=== PATIENT | female | born 1965 | race Two or more races ===

== ENCOUNTER 2020-07-24 19:29 | Emergency (ER) | payer MEDICAID, SELFPAY ==
[2020-07-24 20:47] VITALS: BP 122/68; PULSE 70; RESP 16; TEMP 37.1; O2SAT 98; BMI 30.1
[2020-07-24 21:18] VITALS: TEMP 36.7
--- NOTE | 2020-07-24 21:18 | XR_ITS ---
EXAMINATION: XR CHEST CLINICAL INFORMATION: Chest pain COMPARISON: Chest x-ray 04/09/2019 TECHNIQUE: 2 views of the chest were obtained. FINDINGS: Cardiac silhouette is normal in size. The lungs are well aerated. There is no lobar consolidation. No pleural effusion or pneumothorax. No acute osseous abnormality. IMPRESSION: No acute pulmonary pathology.
--- NOTE | 2020-07-24 21:18 | ECG_ITS ---
Test Reason : LEFT BREAST PAIN Blood Pressure : / mmHG Vent. Rate : 075 BPM Atrial Rate : 075 BPM P-R Int : 154 ms QRS Dur : 090 ms QT Int : 390 ms P-R-T Axes : 059 028 040 degrees QTc Int : 435 ms Normal sinus rhythm with sinus arrhythmia Normal ECG When compared with ECG of 09-MAY-2020 13:15, No significant change was found Referred By: Oscar Lombardo Electronically Signed By:MANNY MILNER MD
[2020-07-24 22:57] LABS: MANUAL DIFF FLAG NO
[2020-07-24 22:59] LABS: Basophils Percent Auto 0.5 % (0-2); Eosinophils Absolute Auto 0.1 X10*3/uL (0.0-0.4); Eosinophils Percent Auto 1.8 % (0-4); Hematocrit 41.9 % (37-47); Hemoglobin 13.7 g/dl (12.0-16.0); Imm Gran Abs Auto 0.02 X10*3/uL (0.00-0.03); Imm Gran Pct Auto 0.3 % (0.0-0.4); Lymphocytes Absolute Auto 2.6 X10*3/uL (1.2-4.9); Lymphocytes Percent Auto 34.3 % (20-40); Mean Corpuscular HGB Conc 32.7 g/dl (31.0-35.0); Mean Corpuscular Hemoglobin 29.3 pg (27.0-33.0); Mean Corpuscular Volume 89.5 fL (80-98); Mean Platelet Volume 10.3 fL (9.4-12.3); Monocytes Absolute Auto 0.6 X10*3/uL (0.1-1.2); Neutrophils Absolute Auto 4.2 X10*3/uL (2.0-8.3); Neutrophils Percent Auto 55.1 % (45-73); Platelet Count 202 X10*3/uL (160-400); Red Blood Count 4.68 X10*6/uL (4.20-5.50); Red Cell Distribution Width 12.3 % (11.0-16.0); White Blood Count 7.6 X10*3/uL (4.8-10.8)
[2020-07-24 23:05] LABS: INTERNATIONAL NORM RATIO 1.1 (0.9-1.1); Prothrombin Time 12.5 SEC (10.8-13.0)
[2020-07-24 23:07] LABS: Partial Thromboplastin Time 31.7 SEC (24.1-38.0)
[2020-07-24 23:31] LABS: Alanine Aminotransferase 17 U/L (0-31); Albumin Level 4.7 g/dL (3.5-5.0); Alkaline Phosphatase 74 U/L (39-117); Anion Gap 13 (12-20); Aspartate Amino Transferase 16 U/L (5-31); Bilirubin Total 0.2 mg/dL (0.0-1.0); Blood Urea Nitrogen 11 mg/dL (9-16); Calcium 9.6 mg/dL (8.4-10.2); Carbon Dioxide 25 mmol/L (22-29); Chloride 107 mmol/L (96-108); Creatinine Clr Calc Pharmacy 63.8; Estimated Glomerular Filt Rate 59; Glucose Random 106 mg/dL (60-115); Potassium 3.6 mmol/l (3.3-5.1); Sodium 141 mmol/L (135-145); Total Protein 7.1 g/dL (6.5-8.0)
[2020-07-24 23:35] LABS: Troponin-I High Sensitivity < 3.5 ng/L (<3.5-17.0)
--- NOTE | 2020-07-24 23:41 | ED.GENADULT ---
HPI - General Adult General Chief complaint: General Medical Stated complaint: BREAST PAIN Time Seen by Provider: 07/24/20 21:18 History of Present Illness HPI narrative: patient presents to ED for left-sided breast pain. Patient describes pain sharp stabbing. Patient denies any shortness of breath, coughing, fever, chills. Patient denies any breast swelling, nipple discharge, redness or mass felt on palpation. Patient states symptoms are growing for the past 2 days. patient denies any chest pain on inspiration, swelling of lower extremities, calf pain, recent surgery, recent trauma, recent long travel, or any control use. Patient denies any history of blood clots. Related Data Previous Rx's Medication Instructions Recorded naproxen 500 mg PO BID PRN #20 tab 07/25/20 Allergies Allergy/AdvReac Type Severity Reaction Status Date / Time No Known Allergies Allergy Unverified 06/27/20 16:25 Review of Systems Review of Systems: Breast pain Yes all other systems are reviewed and are negative Constitutional: Constitutional: Reports as per HPI and Reports no additional constitutional complaints Eyes: Eyes: Reports as per HPI and Reports no additional eye complaints ENT: Reports system reviewed and no additional complaints, except as documented, Reports as per HPI and Denies dysphagia Cardiovascular: Cardiovascular: Reports as per HPI, Reports no additional cardiovascular complaints, Denies chest pain, Denies chest pain at rest, Denies chest pain with activity, Denies Epigastric Pain, Denies lightheadedness, Denies dyspnea, Denies dyspnea on exertion, Denies orthopnea and Denies paroxysmal nocturnal dyspnea Respiratory: Respiratory: Reports as per HPI, Reports no additional respiratory complaints, Denies cough, Denies pain on inspiration, Denies pain with cough, Denies dyspnea and Denies dyspnea on exertion Gastrointestinal: Gastrointestinal: Reports as per HPI, Reports no additional gastrointestinal complaints, Denies abdominal pain, Denies belching, Denies melena, Denies bloating, Denies hematochezia, Denies change in stool character, Denies coffee ground emesis, Denies constipation, Denies dysphagia, Denies heartburn and Denies fecal incontinence Musculoskeletal: Musculoskeletal: Reports no additional musculoskeletal complaints and Reports as per HPI Neurologic: Reports system reviewed and no additional complaints, except as documented and Reports as per HPI Psychiatric: Psychiatric: Reports no additional psychiatric complaints and Reports as per HPI [facility] Social History Social History Advance Directives: No Advance Directives Information Provided: No Physical Exam Vital Signs: Vital Signs: Vital Signs Temp Pulse Resp BP Pulse Ox 07/24/20 21:18 98.0 F 07/24/20 20:47 98.7 F 70 16 122/68 98 Body Mass Index 30.1 Const: General: cooperative, healthy appearing, comfortable and no acute distress HENMT: Head: Yes normal to inspection and Yes No palpable skull fracture present Eyes: General: appearance normal, both eyes and all related structures Neck: Neck: Yes normal visual inspection, Yes full ROM, No no lymphadenopathy, No anterior neck swelling, No positive Brudzinski's sign and No positive Kernig's sign Chest: Other: positive for left upper chest wall tenderness. Breast negative for any erythema, swelling, mass on palpation, nipple discharge, abrasions, or lacerations. Negative for any lymphadenopathy on palpation of left axillary area. Patient denies any chest pain on inspiration. Resp: Effort & Inspection: normal respiratory effort, able to speak in complete sentences, no grunting, not labored, no nasal flaring, no paradoxical thoraco-abdom movements, no respiratory distress, no retractions, no segmental paradox chest wall movement, no stridor, not tachypneic and no tracheal deviation Auscultation: clear to auscultation bilaterally Cardio: Jugular venous distension: no JVD Rate: regular rate Rhythm: regular rhythm Heart sounds: S1 normal heart sound present and S2 normal heart sound present GI: Inspection: Yes normal to inspection, No abdominal wall ecchymosis, No Abdominal wall edema, No distended and No incision Palpation (GI): Soft to palpation, not firm, nontender, no guarding and not rigid Percussion: Yes normal to percussion Course Course Course Narrative: Due to patient having left wall chest tenderness, patient will have EKG, labs, chest x-ray, and 1 troponin. History physical exam does not indicate PE. Reevaluation(s) Reevaluation #1: History physical exam indicates costochondritis. EKG is normal. Chest x-ray normal. troponin negative. Patient is safe for discharge. Time: 00:00 Medical Decision Making MDM Narrative Medical decision making narrative: costochondritis Lab Data Result diagrams: 07/24/20 22:52 07/24/20 22:52 Labs: Lab Results 1007/24/20 07/24/20 Range/Units 22:52 22:52 22:52 WBC 7.6 (4.8-10.8) X10*3/uL RBC 4.68 (4.20-5.50) X10*6/uL Hgb 13.7 (12.0-16.0) g/dl Hct 41.9 (37-47) % MCV 89.5 (80-98) fL MCH 29.3 (27.0-33.0) pg MCHC 32.7 (31.0-35.0) g/dl RDW 12.3 (11.0-16.0) % Plt Count 202 (160-400) X10*3/uL MPV 10.3 (9.4-12.3) fL Immature Gran % (Auto) 0.3 (0.0-0.4) % Neut % (Auto) 55.1 (45-73) % Lymph % (Auto) 34.3 (20-40) % [place] % (Auto) 8.0 (2-11) % Eos % (Auto) 1.8 (0-4) % Baso % (Auto) 0.5 (0-2) % Lymph # (Auto) 2.6 (1.2-4.9) X10*3/uL [place] # (Auto) 0.6 (0.1-1.2) X10*3/uL Eos # (Auto) 0.1 (0.0-0.4) X10*3/uL Baso # (Auto) 0.0 (0.0-0.2) X10*3/uL Abs Immat Gran (auto) 0.02 (0.00-0.03) X10*3/uL Absolute Neuts (auto) 4.2 (2.0-8.3) X10*3/uL Absolute Nucleated RBC 0.000 (0.0-0.012) X10*3/uL Nucleated RBC % (auto) 0.0 (0.0-0.2) /100WBC PT 12.5 (10.8-13.0) SEC INR 1.1 (0.9-1.1) APTT 31.7 (24.1-38.0) SEC Sodium 141 (135-145) mmol/L Potassium 3.6 (3.3-5.1) mmol/l Chloride 107 (96-108) mmol/L Carbon Dioxide 25 (22-29) mmol/L Anion Gap 13 (12-20) BUN 11 (9-16) mg/dL Creatinine 0.98 (0.5-1.4) mg/dL Estim Creat Clear Calc 63.8 Estimated GFR 59 Random Glucose 106 (60-115) mg/dL Calcium 9.6 (8.4-10.2) mg/dL Total Bilirubin 0.2 (0.0-1.0) mg/dL AST 16 (5-31) U/L ALT 17 (0-31) U/L Alkaline Phosphatase 74 (39-117) U/L Troponin I High Sens (<3.5-17.0) ng/L Total Protein 7.1 (6.5-8.0) g/dL Albumin 4.7 (3.5-5.0) g/dL 07/24/20 Range/Units 22:52 WBC (4.8-10.8) X10*3/uL RBC (4.20-5.50) X10*6/uL Hgb (12.0-16.0) g/dl Hct (37-47) % MCV (80-98) fL MCH (27.0-33.0) pg MCHC (31.0-35.0) g/dl RDW (11.0-16.0) % Plt Count (160-400) X10*3/uL MPV (9.4-12.3) fL Immature Gran % (Auto) (0.0-0.4) % Neut % (Auto) (45-73) % Lymph % (Auto) (20-40) % [place] % (Auto) (2-11) % Eos % (Auto) (0-4) % Baso % (Auto) (0-2) % Lymph # (Auto) (1.2-4.9) X10*3/uL [place] # (Auto) (0.1-1.2) X10*3/uL Eos # (Auto) (0.0-0.4) X10*3/uL Baso # (Auto) (0.0-0.2) X10*3/uL Abs Immat Gran (auto) (0.00-0.03) X10*3/uL Absolute Neuts (auto) (2.0-8.3) X10*3/uL Absolute Nucleated RBC (0.0-0.012) X10*3/uL Nucleated RBC % (auto) (0.0-0.2) /100WBC PT (10.8-13.0) SEC INR (0.9-1.1) APTT (24.1-38.0) SEC Sodium (135-145) mmol/L Potassium (3.3-5.1) mmol/l Chloride (96-108) mmol/L Carbon Dioxide (22-29) mmol/L Anion Gap (12-20) BUN (9-16) mg/dL Creatinine (0.5-1.4) mg/dL Estim Creat Clear Calc Estimated GFR Random Glucose (60-115) mg/dL Calcium (8.4-10.2) mg/dL Total Bilirubin (0.0-1.0) mg/dL AST (5-31) U/L ALT (0-31) U/L Alkaline Phosphatase (39-117) U/L Troponin I High Sens < 3.5 (<3.5-17.0) ng/L Total Protein (6.5-8.0) g/dL Albumin (3.5-5.0) g/dL ECG Data Interpretation: normal sinus rhythm. Normal EKG. Ventricular rate 75. CO interval 154 Discharge Plan Discharge Clinical Impression: Acute costochondritis, Breast pain, left Patient Disposition: Home, Self-Care Instructions: Costochondritis (ED) Additional Instructions: return to the ED for shortness of breath, chest pain on inspiration, weakness, swelling of lower extremity, calf pain, coughing up blood, breast swelling, redness of breasts, pus discharge, nipple discharge, mass on palpation of breasts, or any other concerning symptoms. Prescriptions: New naproxen 500 mg tablet 500 mg PO BID PRN (Reason: pain) Qty: 20 RF: 0 Referrals: Cee Florez NP [Primary Care Provider] - 2 days ( EKG and chest x-ray came back normal. Troponin is negative. History physical exam indicate costochondritis, but patient states breast pain. Recommend PCP to refer patient for mammogram as needed.) Discharge Date/Time: 07/25/20 00:17 Print Language: Japanese
== END 2020-07-25 00:17 | disposition home or self-care (01) ==
PROVIDERS: Physician Assistant; Emergency Provider Emergency Medicine; PCP Nurse Practitioner Family
DX: M94.0 Chondrocostal junction syndrome [Tietze] (principal); N64.4 Mastodynia
CPT/HCPCS: 36415; 71046; 80053; 84484; 85025; 85610; 85730; 93005; 99283

== ENCOUNTER 2020-08-06 13:01 | Outpatient (REF) | payer MEDICAID, SELFPAY | END 2020-08-06 13:02 | disposition home or self-care (01) | LOC: HO.LAB 13:01 | PROVIDERS: Visit Provider Internal Medicine | DX: Z20.828 Contact with and (suspected) exposure to other viral communicable diseases (principal) | CPT/HCPCS: 87635 ==

== ENCOUNTER 2020-08-29 12:57 | Emergency (ER) | payer MEDICAID, SELFPAY ==
[2020-08-29 14:47] VITALS: BP 137/66; PULSE 90; RESP 18; TEMP 36.5; O2SAT 97; BMI 30.1
[2020-08-29 14:50] VITALS: BP 137/66; PULSE 90; RESP 18; TEMP 36.5; O2SAT 97
--- NOTE | 2020-08-29 15:21 | US_ITS ---
EXAMINATION: ULTRASOUND OF THE PELVIS CLINICAL INFORMATION: Right-sided pelvic pain. COMPARISON: 05/09/2020. TECHNIQUE: Transabdominal and transvaginal pelvic ultrasound. Doppler evaluation with spectral analysis was performed. A transvaginal study was performed in addition to the transabdominal study which did not yield an adequate examination of the uterus and ovaries due to superimposed distended gas-filled loops of bowel. FINDINGS: The uterus is normal in size and appearance, measuring 8.5 x 2.6 x 4.2 cm longitudinally, anteroposteriorly and transversely. The endometrial stripe thickness is normal, measuring 0.2 cm in thickness. No focal myometrial mass is seen. The ovaries bilaterally are visualized and appear normal, with the right ovary measuring 2.3 x 1.7 x 1.5 cm and the left ovary measuring 2.2 x 1.9 x 2 cm. There are normal arterial and venous spectral waveforms bilaterally. No adnexal mass or free fluid collection seen. US/US pelvic complete IMPRESSION: Normal pelvic ultrasound. No evidence of active ovarian torsion at this time.
--- NOTE | 2020-08-29 15:21 | US_ITS ---
EXAMINATION: ULTRASOUND OF THE PELVIS CLINICAL INFORMATION: Right-sided pelvic pain. COMPARISON: 05/09/2020. TECHNIQUE: Transabdominal and transvaginal pelvic ultrasound. Doppler evaluation with spectral analysis was performed. A transvaginal study was performed in addition to the transabdominal study which did not yield an adequate examination of the uterus and ovaries due to superimposed distended gas-filled loops of bowel. FINDINGS: The uterus is normal in size and appearance, measuring 8.5 x 2.6 x 4.2 cm longitudinally, anteroposteriorly and transversely. The endometrial stripe thickness is normal, measuring 0.2 cm in thickness. No focal myometrial mass is seen. The ovaries bilaterally are visualized and appear normal, with the right ovary measuring 2.3 x 1.7 x 1.5 cm and the left ovary measuring 2.2 x 1.9 x 2 cm. There are normal arterial and venous spectral waveforms bilaterally. No adnexal mass or free fluid collection seen. US/US transvaginal IMPRESSION: Normal pelvic ultrasound. No evidence of active ovarian torsion at this time.
--- NOTE | 2020-08-29 15:21 | US_ITS ---
EXAMINATION: ULTRASOUND OF THE PELVIS CLINICAL INFORMATION: Right-sided pelvic pain. COMPARISON: 05/09/2020. TECHNIQUE: Transabdominal and transvaginal pelvic ultrasound. Doppler evaluation with spectral analysis was performed. A transvaginal study was performed in addition to the transabdominal study which did not yield an adequate examination of the uterus and ovaries due to superimposed distended gas-filled loops of bowel. FINDINGS: The uterus is normal in size and appearance, measuring 8.5 x 2.6 x 4.2 cm longitudinally, anteroposteriorly and transversely. The endometrial stripe thickness is normal, measuring 0.2 cm in thickness. No focal myometrial mass is seen. The ovaries bilaterally are visualized and appear normal, with the right ovary measuring 2.3 x 1.7 x 1.5 cm and the left ovary measuring 2.2 x 1.9 x 2 cm. There are normal arterial and venous spectral waveforms bilaterally. No adnexal mass or free fluid collection seen. US/US pelvic ovarian doppler IMPRESSION: Normal pelvic ultrasound. No evidence of active ovarian torsion at this time.
--- NOTE | 2020-08-29 15:23 | ED.ABDPAIN ---
HPI - Abdominal Pain General Chief Complaint: Abdominal Pain Stated Complaint: abdominal and back pain Time Seen by Provider: 08/29/20 14:39 Source: patient Mode of arrival: ambulatory Limitations: language barrier History of Present Illness HPI narrative: 55 y/o post-menopausal female presenting with intermittent, sharp RLQ/right lower abdominal pain that started yesterday. On arrival she states the pain is gone. She took Tylenol with resolution. She states the pain starts in her right lower abdomen and radiates upward to her right flank. She denies nausea, vomiting, diarrhea, fever, chills, vaginal bleeding, vaginal discharge. She has had pain similar to this in the past, was worked up for kidney stones and told there was nothing wrong. MD elicited complaint: abdominal pain Pertinent past history: none Onset (ago): day(s) (1) Pain Consistency: intermittent Location: RLQ and suprapubic Severity: moderate Quality: stabbing and sharp Radiation: R flank Migration to: no migration Exacerbating factors: nothing Relieving factors: medication Associated symptoms: denies other symptoms Related Data Previous Rx's Medication Instructions Recorded naproxen 500 mg PO BID PRN #20 tab 07/25/20 nitrofurantoin monohyd/m-cryst 100 mg PO BID 3 Days #6 cap 08/29/20 [Macrobid] Allergies Allergy/AdvReac Type Severity Reaction Status Date / Time No Known Allergies Allergy Unverified 06/27/20 16:25 Review of Systems Review of Systems Constitutional: No Fever, No Chills ENT/Mouth: No sore throat, No Rhinorrhea, No Swallowing Difficulty Eyes: No Eye Pain, No Swelling, No Redness Cardiovascular: No Chest Pain, No SOB, No Orthopnea, No Edema Respiratory: No Cough, No Sputum, No Wheezing, No dyspnea Gastrointestinal: No Nausea, No Vomiting, No Diarrhea, + abdominal Pain, No Hematochezia, No Melena Genitourinary: No Dysuria, No Urinary Frequency, No Hematuria, No vaginal bleeding, No vaginal discharge Musculoskeletal: No joint pain, No Myalgias Skin: No Skin Lesions, No rash Heme/Lymph: No Bruising, No Lymphadenopathy Endocrine: No Polyuria, No Polydipsia Physical Exam Vital Signs: Vital Signs: Last Vital Signs Temp 97.7 F 08/29/20 14:50 Pulse 90 08/29/20 14:50 Resp 18 08/29/20 14:50 BP 137/66 08/29/20 14:50 Pulse Ox 97 08/29/20 14:50 Body Mass Index 30.1 Appearance: Alert. Oriented X3. No acute distress. Eyes: Pupils equal, round and reactive to light. ENT: Pharynx normal. Neck: Normal inspection. Neck supple. CVS: Normal heart rate and rhythm. Pulses normal. Respiratory: No respiratory distress. Breath sounds normal. Abdomen: Soft and nontender. +BS x4. No CVA tenderness. Skin: Skin warm and dry. Normal skin color. Normal skin turgor. No rashes. Extremities: No lower extremity edema. Neuro: Oriented X 3. No motor deficit. No sensory deficit. Course Course Course Narrative: 55 yo healthy female presenting with intermittent RLQ/right lower abdominal pain, now resolved. No other associated symptoms. Doubt appendicitis given resolution. Possible ovarian torsion given it is intermittent. Will get pelvic U/S for further evaluation. Will check UA, CBC, chem 7 and LFTs as well. Possible renal colic or kidney stones but denies all other symptoms. Reevaluation(s) Reevaluation #1: Pelvic U/S with ovarian doppler was normal. Blood work is normal. No pain at all while in the ER. She has mildly positive UA. Will empirically treat for 3 days given suprapubic tenderness. She is stable for discharge. MDM - Abdominal Pain Lab Data Attestation: I reviewed the patient's lab results. Result diagrams: 08/29/20 15:38 08/29/20 15:38 Labs: Lab Results 08/29/20 08/29/20 08/29/20 Range/Units 15:38 15:38 16:55 WBC 7.1 (4.8-10.8) X10*3/uL RBC 4.65 (4.20-5.50) X10*6/uL Hgb 13.7 (12.0-16.0) g/dl Hct 40.8 (37-47) % MCV 87.7 (80-98) fL MCH 29.5 (27.0-33.0) pg MCHC 33.6 (31.0-35.0) g/dl RDW 12.0 (11.0-16.0) % Plt Count 196 (160-400) X10*3/uL MPV 10.3 (9.4-12.3) fL Immature Gran % (Auto) 0.1 (0.0-0.4) % Neut % (Auto) 69.5 (45-73) % Lymph % (Auto) 22.4 (20-40) % [place] % (Auto) 6.9 (2-11) % Eos % (Auto) 0.7 (0-4) % Baso % (Auto) 0.4 (0-2) % Lymph # (Auto) 1.6 (1.2-4.9) X10*3/uL [place] # (Auto) 0.5 (0.1-1.2) X10*3/uL Eos # (Auto) 0.1 (0.0-0.4) X10*3/uL Baso # (Auto) 0.0 (0.0-0.2) X10*3/uL Abs Immat Gran (auto) 0.01 (0.00-0.03) X10*3/uL Absolute Neuts (auto) 4.9 (2.0-8.3) X10*3/uL Absolute Nucleated RBC 0.000 (0.0-0.012) X10*3/uL Nucleated RBC % (auto) 0.0 (0.0-0.2) /100WBC Sodium 140 (135-145) mmol/L Potassium 4.4 D (3.3-5.1) mmol/l Chloride 102 (96-108) mmol/L Carbon Dioxide 28 (22-29) mmol/L Anion Gap 14 (12-20) BUN 14 (9-16) mg/dL Creatinine 0.87 (0.5-1.4) mg/dL Estim Creat Clear Calc 71.8 Estimated GFR > 60 Random Glucose 99 (60-115) mg/dL Calcium 9.5 (8.4-10.2) mg/dL Total Bilirubin 0.7 (0.0-1.0) mg/dL Direct Bilirubin 0.2 (0.0-0.5) mg/dL AST 15 (5-31) U/L ALT 16 (0-31) U/L Alkaline Phosphatase 73 (39-117) U/L Total Protein 6.8 (6.5-8.0) g/dL Albumin 4.5 (3.5-5.0) g/dL Lipase 24 (8-78) U/L Urine Color YELLOW Urine Appearance CLEAR Urine pH 6.0 (5.0-8.0) Ur Specific [place] 1.025 (1.005-1.025) Urine Protein NEG (NEG-TRACE) MG/DL Urine Glucose (UA) NEG (NEG) MG/DL Urine Ketones 5 (NEG) MG/DL Urine Blood NEG (NEG) Urine Nitrite NEG (NEG) Ur Leukocyte Esterase TRACE H (NEG) Urine RBC 1-4 (0) /HPF Urine WBC 0-2 (0-4) /HPF Ur Squamous Epith Cells 1+ /LPF Urine Bacteria 1+ /LPF Urine Opiates Screen (Not Detect) Ur Barbiturates Screen (Not Detect) Ur Phencyclidine Scrn (Not Detect) Ur Amphetamines Screen (Not Detect) U Benzodiazepines Scrn (Not Detect) Urine Cocaine Screen (Not Detect) U Marijuana (THC) Screen (Not Detect) 08/29/20 Range/Units 16:55 WBC (4.8-10.8) X10*3/uL RBC (4.20-5.50) X10*6/uL Hgb (12.0-16.0) g/dl Hct (37-47) % MCV (80-98) fL MCH (27.0-33.0) pg MCHC (31.0-35.0) g/dl RDW (11.0-16.0) % Plt Count (160-400) X10*3/uL MPV (9.4-12.3) fL Immature Gran % (Auto) (0.0-0.4) % Neut % (Auto) (45-73) % Lymph % (Auto) (20-40) % [place] % (Auto) (2-11) % Eos % (Auto) (0-4) % Baso % (Auto) (0-2) % Lymph # (Auto) (1.2-4.9) X10*3/uL [place] # (Auto) (0.1-1.2) X10*3/uL Eos # (Auto) (0.0-0.4) X10*3/uL Baso # (Auto) (0.0-0.2) X10*3/uL Abs Immat Gran (auto) (0.00-0.03) X10*3/uL Absolute Neuts (auto) (2.0-8.3) X10*3/uL Absolute Nucleated RBC (0.0-0.012) X10*3/uL Nucleated RBC % (auto) (0.0-0.2) /100WBC Sodium (135-145) mmol/L Potassium (3.3-5.1) mmol/l Chloride (96-108) mmol/L Carbon Dioxide (22-29) mmol/L Anion Gap (12-20) BUN (9-16) mg/dL Creatinine (0.5-1.4) mg/dL Estim Creat Clear Calc Estimated GFR Random Glucose (60-115) mg/dL Calcium (8.4-10.2) mg/dL Total Bilirubin (0.0-1.0) mg/dL Direct Bilirubin (0.0-0.5) mg/dL AST (5-31) U/L ALT (0-31) U/L Alkaline Phosphatase (39-117) U/L Total Protein (6.5-8.0) g/dL Albumin (3.5-5.0) g/dL Lipase (8-78) U/L Urine Color Urine Appearance Urine pH (5.0-8.0) Ur Specific [place] (1.005-1.025) Urine Protein (NEG-TRACE) MG/DL Urine Glucose (UA) (NEG) MG/DL Urine Ketones (NEG) MG/DL Urine Blood (NEG) Urine Nitrite (NEG) Ur Leukocyte Esterase (NEG) Urine RBC (0) /HPF Urine WBC (0-4) /HPF Ur Squamous Epith Cells /LPF Urine Bacteria /LPF Urine Opiates Screen Not Detected (Not Detect) Ur Barbiturates Screen Not Detected (Not Detect) Ur Phencyclidine Scrn Not Detected (Not Detect) Ur Amphetamines Screen Not Detected (Not Detect) U Benzodiazepines Scrn Not Detected (Not Detect) Urine Cocaine Screen Not Detected (Not Detect) U Marijuana (THC) Screen Not Detected (Not Detect) Critical Care Time Critical Care Time Critical Care Time: No Discharge Plan Discharge Clinical Impression: UTI (urinary tract infection) Qualifiers: Urinary tract infection type: acute cystitis Hematuria presence: without hematuria Qualified Code(s): N30.00 - Acute cystitis without hematuria Patient Disposition: Home, Self-Care Instructions: Urinary Tract Infection in Women (ED) Additional Instructions: Your pelvic ultrasound today was normal. Your blood work was normal. Your urine test showed a possible early urinary tract infection so you are being prescribed antibiotics while we await the urine culture results. If your pain returns, call your doctor or come back to the ER for further evaluation. Follow up with your doctor early next week. Prescriptions: New nitrofurantoin monohyd/m-cryst [Macrobid] 100 mg capsule 100 mg PO BID 3 Days Qty: 6 RF: 0 No Action naproxen 500 mg tablet 500 mg PO BID PRN (Reason: pain) Qty: 20 RF: 0 Print Language: Serbian [facility] Past Medical History Attestation statement: The following information was validated with the patient. Medical History delivery delivered No known health problems Social History Social History Alcohol intake: never Smoking Status: Never smoker Use of substances other than those prescribed or required for medical reasons: No Advance Directives: No Advance Directives Information Provided: Yes
[2020-08-29] MEDS: 0.9 % Sodium Chloride 1,000 ML 999 ML IVCONT (15:41)
[2020-08-29 15:42] LABS: MANUAL DIFF FLAG NO
[2020-08-29 15:44] LABS: Basophils Percent Auto 0.4 % (0-2); Eosinophils Absolute Auto 0.1 X10*3/uL (0.0-0.4); Eosinophils Percent Auto 0.7 % (0-4); Hematocrit 40.8 % (37-47); Hemoglobin 13.7 g/dl (12.0-16.0); Imm Gran Abs Auto 0.01 X10*3/uL (0.00-0.03); Imm Gran Pct Auto 0.1 % (0.0-0.4); Lymphocytes Absolute Auto 1.6 X10*3/uL (1.2-4.9); Lymphocytes Percent Auto 22.4 % (20-40); Mean Corpuscular HGB Conc 33.6 g/dl (31.0-35.0); Mean Corpuscular Hemoglobin 29.5 pg (27.0-33.0); Mean Corpuscular Volume 87.7 fL (80-98); Mean Platelet Volume 10.3 fL (9.4-12.3); Monocytes Absolute Auto 0.5 X10*3/uL (0.1-1.2); Monocytes Percent Auto 6.9 % (2-11); Neutrophils Absolute Auto 4.9 X10*3/uL (2.0-8.3); Neutrophils Percent Auto 69.5 % (45-73); Platelet Count 196 X10*3/uL (160-400); Red Blood Count 4.65 X10*6/uL (4.20-5.50); White Blood Count 7.1 X10*3/uL (4.8-10.8)
[2020-08-29 16:12] LABS: Alanine Aminotransferase 16 U/L (0-31); Albumin Level 4.5 g/dL (3.5-5.0); Alkaline Phosphatase 73 U/L (39-117); Anion Gap 14 (12-20); Aspartate Amino Transferase 15 U/L (5-31); Bilirubin Direct 0.2 mg/dL (0.0-0.5); Bilirubin Total 0.7 mg/dL (0.0-1.0); Blood Urea Nitrogen 14 mg/dL (9-16); Calcium 9.5 mg/dL (8.4-10.2); Carbon Dioxide 28 mmol/L (22-29); Chloride 102 mmol/L (96-108); Creatinine Clr Calc Pharmacy 71.8; Estimated Glomerular Filt Rate > 60; Glucose Random 99 mg/dL (60-115); Lipase 24 U/L (8-78); Potassium 4.4 mmol/l (3.3-5.1); Sodium 140 mmol/L (135-145); Total Protein 6.8 g/dL (6.5-8.0)
[2020-08-29 17:05] LABS: Glucose Urine UA NEG (NEG); Leukocyte Esterase Urine TRACE (NEG); Nitrite Urine NEG (NEG); Specific Gravity - Urine 1.025 (1.005-1.025); Urine Blood NEG (NEG); Urine Ketones 5 MG/DL (NEG); Urine Protein NEG (NEG-TRACE)
[2020-08-29 17:08] LABS: Appearance Urine CLEAR; Color Urine YELLOW
[2020-08-29 17:20] LABS: Bacteria Urine 1+ /LPF; Squamous Epithelial Cell Urine 1+ /LPF; WBC Urine 0-2 /HPF (0-4)
[2020-08-29 17:28] LABS: Amphetamine Screen Urine Not Detected (Not Detect); Barbiturates, Urine Not Detected (Not Detect); Benzodiazepines Screen Urine Not Detected (Not Detect); Cannabinoid Screen Urine Not Detected (Not Detect); Cocaine Screen Urine Not Detected (Not Detect); Opiate Screen Urine Not Detected (Not Detect); Phencyclidine Screen Urine Not Detected (Not Detect)
[2020-08-29 18:00] VITALS: BP 128/68; PULSE 75; RESP 16; TEMP 36.8; O2SAT 98
== END 2020-08-29 18:02 | disposition home or self-care (01) ==
PROVIDERS: Physician Assistant; Emergency Provider Emergency Medicine; PCP Nurse Practitioner Family
DX: N30.00 Acute cystitis without hematuria (principal); R10.2 Pelvic and perineal pain; R10.31 Right lower quadrant pain; M54.5 Low back pain; Z79.899 Other long term (current) drug therapy
CPT/HCPCS: 36415; 76830; 76856; 80048; 80076; 80307; 81001; 81003; 83690; 85025; 87086; 93975; 96360; 99284

== ENCOUNTER 2020-09-03 13:32 | Emergency (ER) | payer MEDICAID, SELFPAY ==
[2020-09-03 13:43] VITALS: BP 136/65; PULSE 97; RESP 16; TEMP 37.1; O2SAT 98; BMI 28.3
--- NOTE | 2020-09-03 15:08 | ED.EAR ---
HPI - Ear Problem General Chief complaint: Ear Problems Stated complaint: ear pain Time Seen by Provider: 09/03/20 15:08 Source: patient Mode of arrival: ambulatory Limitations: language barrier (eligibility and occupancy interviewer used) History of Present Illness HPI Narrative: Pt states 2 weeks of ear pain and reduced hearing, no ringing or dizziness or fever, no nausea or vomiting, has not seen a doctor for it. She has tried OTC drops with no relief. Denies cough, sore throat or recent Upper resp symptoms. Related Data Previous Rx's Medication Instructions Recorded naproxen 500 mg PO BID PRN #20 tab 07/25/20 nitrofurantoin monohyd/m-cryst 100 mg PO BID 3 Days #6 cap 08/29/20 [Macrobid] amoxicillin-pot clavulanate 1 tab PO BID #20 tab 09/03/20 [Augmentin] Allergies Allergy/AdvReac Type Severity Reaction Status Date / Time No Known Allergies Allergy Verified 09/03/20 13:51 Review of Systems Review of Systems: see HPI [facility] Past Medical History Medical History delivery delivered No known health problems Social History Social History Alcohol intake: never Smoking Status: Never smoker Advance Directives: No Advance Directives Information Provided: No Physical Exam Vital Signs: Vital Signs: Last Vital Signs Temp 98.7 F 09/03/20 13:43 Pulse 97 09/03/20 13:43 Resp 16 09/03/20 13:43 BP 136/65 09/03/20 13:43 Pulse Ox 98 09/03/20 13:43 Body Mass Index 28.3 Const: General: cooperative, healthy appearing and comfortable Nutritional Appearance: average body habitus Orientation/consciousness: patient oriented x3 Limitations: language barrier (interpretor used) HENMT: Head: Yes normal to inspection Ears: hearing grossly normal bilaterally, external ears normal, TM normal on the right, mastoids normal, no periauricular adenopathy, Abnormal EAC present, hearing grossly impaired (slightly decreased) on the left, no periauricular adenopathy, TMs normal and unable to visualize TM on the left General nose exam: Normal external nose present Face and sinus: Yes normal facial exam Eyes: General: appearance normal, both eyes and all related structures Neck: Neck: Yes normal visual inspection, Yes full ROM and Yes supple Resp: Effort & Inspection: normal respiratory effort Neuro: General: patient oriented x3 Discharge Plan Discharge Clinical Impression: Otitis media Patient Disposition: Home, Self-Care Prescriptions: New amoxicillin-pot clavulanate [Augmentin] 875-125 mg tablet 1 tab PO BID Qty: 20 RF: 0 No Action naproxen 500 mg tablet 500 mg PO BID PRN (Reason: pain) Qty: 20 RF: 0 nitrofurantoin monohyd/m-cryst [Macrobid] 100 mg capsule 100 mg PO BID 3 Days Qty: 6 RF: 0 Interventions: ED Discharge Assessment Last Done: 09/03/20 15:49 Discharge Date/Time: 09/03/20 15:50 Print Language: [place]
== END 2020-09-03 15:50 | disposition home or self-care (01) ==
PROVIDERS: Emergency Provider Emergency Medicine Emergency Medical Services; PCP Nurse Practitioner Family
DX: H66.93 Otitis media, unspecified, bilateral (principal); Z79.899 Other long term (current) drug therapy
CPT/HCPCS: 99283

== ENCOUNTER 2020-09-30 13:01 | Emergency (ER) | payer MEDICAID, SELFPAY ==
[2020-09-30 13:04] VITALS: BP 137/76; PULSE 92; RESP 18; TEMP 36.1; O2SAT 98; BMI 28.3
== END 2020-09-30 17:13 | disposition left against medical advice (07) ==
PROVIDERS: Emergency Provider Emergency Medicine; PCP Nurse Practitioner Family
DX: G47.00 Insomnia, unspecified (principal)
CPT/HCPCS: 99282

== ENCOUNTER 2020-10-01 12:17 | Emergency (ER) | payer MEDICAID, SELFPAY ==
--- NOTE | 2020-10-01 14:51 | ED.GENADULT ---
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 The patient tells me she has had difficulty sleeping for the last 11-12 days. She was seen by her primary care doctor and was started on doxylamine, melatonin and trazodone. The patient tells me she has also been compliant with her Haldol which takes daily and p.r.n. clonazepam. She tells me these medications are not helping and she is continuing to have trouble sleeping. She tells me she tosses and turns throughout the night. She does not feel like she gets a full night sleep. She denies any anxiety, depression, auditory visual hallucinations, suicidal or homicidal ideations. Onset (ago): day(s) Associated symptoms: denies other symptoms Related Data Previous Rx's Medication Instructions Recorded naproxen 500 mg PO BID PRN #20 tab 07/25/20 nitrofurantoin monohyd/m-cryst 100 mg PO BID 3 Days #6 cap 08/29/20 [Macrobid] amoxicillin-pot clavulanate 1 tab PO BID #20 tab 09/03/20 [Augmentin] Allergies Allergy/AdvReac Type Severity Reaction Status Date / Time No Known Allergies Allergy Verified 09/30/20 13:04 Review of Systems Review of Systems: Yes all other systems are reviewed and are negative Constitutional: Constitutional: Reports no additional constitutional complaints, Denies body ache(s), Denies chills, Denies fever(s), Denies headache(s) and Denies weakness Eyes: Eyes: Reports no additional eye complaints and Denies change in vision ENT: Reports system reviewed and no additional complaints, except as documented, Denies dizziness, Denies headache(s), Denies nasal congestion, Denies nasal discharge and Denies neck pain Cardiovascular: Cardiovascular: Reports no additional cardiovascular complaints, Denies chest pain, Denies leg edema and Denies dyspnea Respiratory: Respiratory: Reports no additional respiratory complaints, Denies cough and Denies dyspnea Gastrointestinal: Gastrointestinal: Reports no additional gastrointestinal complaints, Denies abdominal pain, Denies diarrhea, Denies nausea and Denies vomiting Genitourinary: Genitourinary: Reports no additional female genitourinary complaints and Denies urinary incontinence Musculoskeletal: Musculoskeletal: Reports no additional musculoskeletal complaints, Denies back pain, Denies arthralgias, Denies joint swelling, Denies neck pain, Denies numbness and Denies tingling Integumentary/Breasts: Skin/Breast: Reports system reviewed and no additional complaints, except as docu and Denies rash Neurologic: Reports system reviewed and no additional complaints, except as documented, Denies Abnormal speech present, Denies dizziness, Denies headache(s), Denies numbness, Denies tingling and Denies weakness Psychiatric: Psychiatric: Denies anxiety, Denies depression, Denies visual hallucinations, Denies hallucinations, Denies homicidal ideation and Denies suicidal ideation Comments: +difficulty sleeping PMFSH Past Medical History Attestation statement: The following information was validated with the patient. Source: old records reviewed and nursing notes reviewed Medical History delivery delivered No known health problems Social History Social History Alcohol intake: never Smoking Status: Never smoker Advance Directives: No Advance Directives Information Provided: Yes Physical Exam Vital Signs: Vital Signs: Last Vital Signs Temp 97.2 F 10/01/20 15:23 Pulse 86 10/01/20 15:23 Resp 16 10/01/20 15:23 BP 115/67 10/01/20 15:23 Pulse Ox 97 10/01/20 15:23 Body Mass Index 27.8 Const: Other: tired appearing, flat affect General: cooperative Orientation/consciousness: patient oriented x3 Limitations: no limitations HENMT: Head: Yes normal to inspection Ears: hearing grossly normal bilaterally General nose exam: Normal external nose present Face and sinus: Yes normal facial exam Mouth: Normal oral and palatal mucosa present Throat: Yes posterior oropharynx normal Eyes: General: appearance normal, both eyes and all related structures Pupils: Equal, round and reactive pupils present Neck: Neck: Yes normal visual inspection Chest: Chest palpation & inspection: normal inspection of the chest Resp: Effort & Inspection: normal respiratory effort Cardio: Rate: regular rate Rhythm: regular rhythm Peripheral pulses: Peripheral pulses 2+ throughout GI: Inspection: Yes normal to inspection Back/Spine/Pelvis: Thoracic/Lumbar Spine: thoracic and lumbar spine normal to inspection Skin: General skin exam: no rashes or lesions noted Neuro: General: patient oriented x3 and normal sensation to monofilament Cranial nerves: Yes Equal, round and reactive pupils present Cognition (Neuro): normal cognition Speech: No Abnormal speech present Gait exam (Neuro): Normal gait present Motor exam (neuro): 5/5 motor strength present throughout Extrem: General: Yes normal to inspection Course Course Course Narrative: 55-year-old female here with difficulty sleeping for the last 11-12 days. She has no other complaints. She is been taking trazodone, doxylamine, melatonin, Haldol and clonazepam with continued symptoms. The patient tells me she has not called her primary care doctor to discuss how she is doing. We did discuss us a good sleeper regimen and nonpharmacological methods to help with sleep. I did strongly encourage her to call her primary care doctor as they may need to adjust her doses of medications. I am hesitant to do this as the patient is followed by both primary care and psychiatrist. The patient has no psych complaints. She has no physical complaints. Reviewed worrisome signs and symptoms and when to return to the emergency department. Comfortable discharge home. Discharge Plan Discharge Clinical Impression: Insomnia Qualifiers: Insomnia type: unspecified Qualified Code(s): G47.00 - Insomnia, unspecified Patient Disposition: Home, Self-Care Instructions: Insomnia (ED) Additional Instructions: Continue your medications See attached information for sleep aid CALL YOUR PCP today so that they may adjust your medications as needed Try some meditations, cool/dark room, limit screen time, no caffeine/sugar within several hours of sleeping Prescriptions: No Action naproxen 500 mg tablet 500 mg PO BID PRN (Reason: pain) Qty: 20 RF: 0 nitrofurantoin monohyd/m-cryst [Macrobid] 100 mg capsule 100 mg PO BID 3 Days Qty: 6 RF: 0 amoxicillin-pot clavulanate [Augmentin] 875-125 mg tablet 1 tab PO BID Qty: 20 RF: 0 Referrals: Cee Florez NP [Primary Care Provider] - 2 days Interventions: ED Discharge Assessment Last Done: 10/01/20 15:35 Discharge Date/Time: 10/01/20 15:36 Print Language: Telugu
[2020-10-01 15:23] VITALS: BP 115/67; PULSE 86; RESP 16; TEMP 36.2; O2SAT 97; BMI 27.8
== END 2020-10-01 15:36 | disposition home or self-care (01) ==
PROVIDERS: Emergency Provider Emergency Medicine; PCP Nurse Practitioner Family
DX: G47.00 Insomnia, unspecified (principal); E78.5 Hyperlipidemia, unspecified; Z79.899 Other long term (current) drug therapy
CPT/HCPCS: 99283

== ENCOUNTER 2020-12-17 10:09 | Emergency (ER) | payer MEDICAID, SELFPAY ==
[2020-12-17 10:18] VITALS: BP 112/79; BP 136/100; PULSE 117; PULSE 121; RESP 16; TEMP 36.8; O2SAT 97; BMI 27.9
[2020-12-17 11:15] LABS: Glucose Urine UA NEG (NEG); Leukocyte Esterase Urine NEG (NEG); Nitrite Urine NEG (NEG); PH 8.5 (5.0-8.0); Specific Gravity - Urine 1.015 (1.005-1.025); Urine Blood TRACE (NEG); Urine Ketones NEG (NEG); Urine Protein NEG (NEG-TRACE)
[2020-12-17 11:17] LABS: Basophils Percent Auto 0.3 % (0-2); Eosinophils Percent Auto 0.1 % (0-4); Hematocrit 43.1 % (37-47); Hemoglobin 14.4 g/dl (12.0-16.0); Imm Gran Abs Auto 0.01 X10*3/uL (0.00-0.03); Imm Gran Pct Auto 0.1 % (0.0-0.4); Lymphocytes Absolute Auto 1.7 X10*3/uL (1.2-4.9); Lymphocytes Percent Auto 21.8 % (20-40); Mean Corpuscular HGB Conc 33.4 g/dl (31.0-35.0); Mean Corpuscular Hemoglobin 29.6 pg (27.0-33.0); Mean Corpuscular Volume 88.7 fL (80-98); Mean Platelet Volume 10.5 fL (9.4-12.3); Monocytes Absolute Auto 0.6 X10*3/uL (0.1-1.2); Monocytes Percent Auto 7.8 % (2-11); Neutrophils Absolute Auto 5.4 X10*3/uL (2.0-8.3); Neutrophils Percent Auto 69.9 % (45-73); Platelet Count 227 X10*3/uL (160-400); Red Blood Count 4.86 X10*6/uL (4.20-5.50); White Blood Count 7.7 X10*3/uL (4.8-10.8)
[2020-12-17 11:18] LABS: Appearance Urine TURBID; Color Urine YELLOW
[2020-12-17 11:18] LABS: MANUAL DIFF FLAG NO
[2020-12-17 11:39] LABS: Amorphous Sediment Urine 3+ /LPF; RBC Urine 0-2 /HPF (0); Squamous Epithelial Cell Urine 2+ /LPF; WBC Urine 0 /HPF (0-4)
[2020-12-17 11:54] LABS: Alanine Aminotransferase 18 U/L (0-31); Albumin Level 4.6 g/dL (3.5-5.0); Alkaline Phosphatase 82 U/L (39-117); Anion Gap 13 (12-20); Aspartate Amino Transferase 15 U/L (5-31); Bilirubin Total 0.5 mg/dL (0.0-1.0); Blood Urea Nitrogen 9 mg/dL (9-16); Calcium 9.7 mg/dL (8.4-10.2); Carbon Dioxide 25 mmol/L (22-29); Chloride 108 mmol/L (96-108); Creatinine Clr Calc Pharmacy 65.5; Estimated Glomerular Filt Rate > 60; Glucose Random 117 mg/dL (60-115); Potassium 4.2 mmol/L (3.3-5.1); Sodium 142 mmol/L (135-145)
[2020-12-17 12:05] VITALS: BP 111/70; PULSE 106; RESP 18; TEMP 37.1; O2SAT 97
--- NOTE | 2020-12-17 12:06 | PC.NURSE ---
NO TREMOR NOTED AT THIS TIME. PT STATES SHE'S FEELING BETTER W/O INTERVENTION. FLAT AFFECT. HAS NOT BEEN UP TO URINATE SINCE THIS RN ARRIVAL AT 1045. SKIN PWD. NO GRIMACE. WILL NOT REMOVE SUNGLASSES.
[2020-12-17] MEDS: LORazepam 1 MG TABLET PO (12:07)
[2020-12-17 14:00] VITALS: BP 115/70; PULSE 98; RESP 18; TEMP 37.1; O2SAT 97
--- NOTE | 2020-12-17 14:18 | ED_ITS ---
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 The patient states that she has been having lower abdominal pain for 2 days, she points to her suprapubic area when asked to localize the pain. She states pain is intermittent and is a sharp pain. The pain is 6/10 at its worst. She states that she has had difficulty urinating as had decreased urine output. She has noted urinary frequency but no dysuria. She has been taking Tylenol with no relief for pain. She denied fever, chills, nausea, vomiting, change in her bowel movements. Related Data Previous Rx's Medication Instructions Recorded naproxen 500 mg PO BID PRN #20 tab 07/25/20 nitrofurantoin monohyd/m-cryst 100 mg PO BID 3 Days #6 cap 08/29/20 [Macrobid] amoxicillin-pot clavulanate 1 tab PO BID #20 tab 09/03/20 [Augmentin] Allergies Allergy/AdvReac Type Severity Reaction Status Date / Time No Known Allergies Allergy Verified 09/30/20 13:04 Review of Systems Review of Systems: Yes all other systems are reviewed and are negative [facility] Past Medical History [facility] Narrative: Past medical history [facility] for hyper[facility], past surgical history significant for . The patient denies tobacco, alcohol and drug use. Medical History delivery delivered No known health problems Occasional tremors Social History Social History Alcohol intake: never Smoking Status: Never smoker Smoked in Last 30 Days: No Use of substances other than those prescribed or required for medical reasons: No Advance Directives: Yes Advance Directives Information Provided: Yes Advance Directives on File: No Physical Exam Vital Signs: Vital Signs: Last Vital Signs Temp 98.7 F 12/17/20 12:05 Pulse 106 H 12/17/20 12:05 Resp 18 12/17/20 12:05 BP 111/70 03/09/21 12:05 Pulse Ox 97 12/17/20 12:05 Body Mass Index 27.9 Const: General: cooperative Orientation/consciousness: oriented to person and oriented to place Limitations: no limitations HENMT: Head: Yes normal to inspection, Yes normocephalic and Yes atraumatic Ears: external ears normal General nose exam: Normal external nose present Face and sinus: Yes normal facial exam Mouth: Normal oral and palatal mucosa present Throat: Yes posterior oropharynx normal Eyes: Periorbital: periorbital findings normal Eyelids: Yes eyelids normal Conjunctivae: conjunctivae normal Sclerae: sclerae normal Corneas: corneas normal Pupils: Equal, round and reactive pupils present Direct Ophthalmoscopy: normal light reflex Neck: Neck: Yes full ROM, Yes no lymphadenopathy, Yes no meningeal signs, Yes trachea midline and Yes supple Chest: Chest palpation & inspection: normal inspection of the chest and normal palpation of entire chest wall Resp: Effort & Inspection: normal respiratory effort and able to speak in complete sentences Auscultation: clear to auscultation bilaterally Cardio: Rate: regular rate Rhythm: regular rhythm Heart sounds: S1 normal heart sound present, S2 normal heart sound present and no murmurs GI: Inspection: Yes normal to inspection Palpation (GI): Soft to palpation, Tenderness to palpation present (GI) suprapubicly (Mild), no guarding, not rigid and No hepatosplenomegaly present : General: Yes no CVA tenderness Back/Spine/Pelvis: Back: no CVA tenderness Cervical Spine: normal cervical lordosis Thoracic/Lumbar Spine: thoracic and lumbar spine normal to inspection Skin: Lesions: no lesions Rashes: no rashes Wounds: no wounds Neuro: General: oriented to person, oriented to place and no meningeal signs Cranial nerves: Yes CN's II-XII intact bilaterally and Yes Equal, round and reactive pupils present Cognition (Neuro): normal cognition Motor exam (neuro): 5/5 motor strength present throughout Extrem: General: Yes normal to inspection and Yes full ROM Psych: Appearance: well kempt Mental Status: mental status grossly normal Speech and movement: Normal speech and movement present Affect: Indifferent affect present (Flat affect) Attitude: cooperative Thought process: Normal thought process present Thought content: Normal thought content present Course Course Course Narrative: 55-year-old female who presented emergency department for evaluation of lower abdominal pain times 2-3 days with urinary frequency. Physical examination did reveal suprapubic tenderness otherwise was unremarkable. Laboratory evaluation was normal, urinalysis revealed trace leukocyte esterase with 0-1 rbc's and 0-2 WBCs on microscopic. Bladder scan revealed no urinary retention. At this time I do not have a clear etiology for the patient's pain. The patient was advised to take Tylenol and ibuprofen. She was given ibuprofen here in the emergency department. She was given verbal and printed instructions and discharged home. MDM - Female Genitourinary Lab Data Result diagrams: 12/17/20 11:12 12/17/20 11:12 Labs: Lab Results 12/17/20 12/17/20 12/17/20 Range/Units 10:47 11:12 11:12 WBC 7.7 (4.8-10.8) X10*3/uL RBC 4.86 (4.20-5.50) X10*6/uL Hgb 14.4 (12.0-16.0) g/dl Hct 43.1 (37-47) % MCV 88.7 (80-98) fL MCH 29.6 (27.0-33.0) pg MCHC 33.4 (31.0-35.0) g/dl RDW 12.0 (11.0-16.0) % Plt Count 227 (160-400) X10*3/uL MPV 10.5 (9.4-12.3) fL Immature Gran % (Auto) 0.1 (0.0-0.4) % Neut % (Auto) 69.9 (45-73) % Lymph % (Auto) 21.8 (20-40) % [place] % (Auto) 7.8 (2-11) % Eos % (Auto) 0.1 (0-4) % Baso % (Auto) 0.3 (0-2) % Lymph # (Auto) 1.7 (1.2-4.9) X10*3/uL [place] # (Auto) 0.6 (0.1-1.2) X10*3/uL Eos # (Auto) 0.0 (0.0-0.4) X10*3/uL Baso # (Auto) 0.0 (0.0-0.2) X10*3/uL Abs Immat Gran (auto) 0.01 (0.00-0.03) X10*3/uL Absolute Neuts (auto) 5.4 (2.0-8.3) X10*3/uL Absolute Nucleated RBC 0.000 (0.0-0.012) X10*3/uL Nucleated RBC % (auto) 0.0 (0.0-0.2) /100WBC Sodium 142 (135-145) mmol/L Potassium 4.2 (3.3-5.1) mmol/L Chloride 108 (96-108) mmol/L Carbon Dioxide 25 (22-29) mmol/L Anion Gap 13 (12-20) BUN 9 (9-16) mg/dL Creatinine 0.92 (0.5-1.4) mg/dL Estim Creat Clear Calc 65.5 Estimated GFR > 60 Random Glucose 117 H (60-115) mg/dL Calcium 9.7 (8.4-10.2) mg/dL Total Bilirubin 0.5 (0.0-1.0) mg/dL AST 15 (5-31) U/L ALT 18 (0-31) U/L Alkaline Phosphatase 82 (39-117) U/L Total Protein 7.0 (6.5-8.0) g/dL Albumin 4.6 (3.5-5.0) g/dL Urine Color YELLOW Urine Appearance TURBID Urine pH 8.5 H (5.0-8.0) Ur Specific [place] 1.015 (1.005-1.025) Urine Protein NEG (NEG-TRACE) MG/DL Urine Glucose (UA) NEG (NEG) MG/DL Urine Ketones NEG (NEG) MG/DL Urine Blood TRACE (NEG) Urine Nitrite NEG (NEG) Ur Leukocyte Esterase NEG (NEG) Urine RBC 0-2 (0) /HPF Urine WBC 0 (0-4) /HPF Ur Squamous Epith Cells 2+ /LPF Amorphous Sediment 3+ /LPF Urine Bacteria NONE /LPF Discharge Plan Discharge Clinical Impression: Abdominal pain Qualifiers: Abdominal location: unspecified location Qualified Code(s): R10.9 - Unspecified abdominal pain Patient Disposition: Home, Self-Care Instructions: Abdominal Pain (ED) Additional Instructions: Your laboratory evaluation was unremarkable. Urinalysis was unremarkable suggested he do not have a urine infection at this time. Take ibuprofen 200 mg pills, 3 pills every 6 hours as needed for pain. Take Tylenol (acetaminophen) 500 mg pills, 2 pills every 4 to 6 hours as needed for pain. Follow-up with your doctor in 2 days. Please return to the emergency department if your symptoms get worse or if you develop any symptoms that are concerning to you. Prescriptions: No Action naproxen 500 mg tablet 500 mg PO BID PRN (Reason: pain) Qty: 20 RF: 0 nitrofurantoin monohyd/m-cryst [Macrobid] 100 mg capsule 100 mg PO BID 3 Days Qty: 6 RF: 0 amoxicillin-pot clavulanate [Augmentin] 875-125 mg tablet 1 tab PO BID Qty: 20 RF: 0
[2020-12-17] MEDS: Ibuprofen 600 MG TABLET PO (15:50)
== END 2020-12-17 15:55 | disposition home or self-care (01) ==
PROVIDERS: Emergency Provider Emergency Medicine Emergency Medical Services
DX: R33.9 Retention of urine, unspecified (principal); R30.0 Dysuria; R10.9 Unspecified abdominal pain; Z79.899 Other long term (current) drug therapy
CPT/HCPCS: 36415; 51798; 80053; 81001; 85025; 99284

== ENCOUNTER 2021-01-07 10:19 | Emergency (ER) | payer MEDICAID, SELFPAY ==
--- NOTE | ~2021-01-07 | CT_ITS ---
EXAMINATION: CT ABDOMEN AND PELVIS WITHOUT CONTRAST CLINICAL INFORMATION: Right flank pain COMPARISON: Previous CT of the abdomen and pelvis March 2019 and pelvic ultrasound August 2019 TECHNIQUE: Multidetector volumetric imaging was performed from the superior aspect of the liver through the pubic symphysis. Sagittal and coronal reformatted images were obtained on the technologist's workstation. Exam is limited due to motion artifact. This CT examination was performed using dose optimization techniques as appropriate, variously including the following: *Automated exposure control *Adjustment of mA and/or kV according to patient size (this includes techniques or standardized protocols for targeted exams where dose is matched to indication/reason for exam; i.e. extremities or head) *Use of iterative reconstruction technique DLP: 630 mGy-cm FINDINGS: LUNG BASES: The visualized lung bases are unremarkable. LIVER, GALLBLADDER, AND BILIARY TREE: The liver is normal in size, shape, and attenuation. No focal hepatic lesion or biliary ductal dilatation is present. The gallbladder is unremarkable with no evidence of radiopaque gallstones, gallbladder wall thickening, or obvious pericholecystic inflammatory changes. PANCREAS: Unremarkable. SPLEEN: Unremarkable. ADRENAL GLANDS: Unremarkable. KIDNEYS AND URETERS: There is a 4 x 8 mm central stone seen in the right renal pelvis. No right hydronephrosis or ureteral dilatation is seen. There is a small 2 mm nonobstructing stone in the upper pole of the left kidney. BLADDER: Not optimally distended. GASTROINTESTINAL TRACT: The small and large bowel are unremarkable. The appendix is unremarkable. ABDOMINAL WALL: No significant hernia is appreciated. LYMPH NODES: Normal. VASCULAR: Unremarkable. PELVIC VISCERA: Unremarkable. OSSEOUS STRUCTURES: Unremarkable. CT/CT abdomen pelvis wo con IMPRESSION: 4 x 8 mm central right renal pelvis stone. No hydronephrosis. Left renal stone.
[2021-01-07 10:35] VITALS: BP 107/71; PULSE 63; RESP 16; TEMP 36.8; O2SAT 100; BMI 26.2
--- NOTE | 2021-01-07 10:46 | ED.ABDPAIN ---
HPI - Abdominal Pain General Chief Complaint: Abdominal Pain Stated Complaint: ABD PAIN Time Seen by Provider: 01/07/21 10:34 Source: patient Mode of arrival: ambulatory Limitations: no limitations History of Present Illness HPI narrative: Patient comes emergency room complaining of suprapubic pain and right flank pain. Patient states it has been going on for three days. Patient denies fever or chills. Patient has been seen in the emergency room several times for suprapubic pain. Patient denies hematuria. Patient also denies nausea vomiting or diarrhea. Patient states that on December 20 she has a pending appointment with OBGYN for reoccurring suprapubic pain. Patient noted to be wearing sunglasses in the room, unwilling to take them off. Patient denies headache or photophobia MD elicited complaint: flank pain Related Data Previous Rx's Medication Instructions Recorded naproxen 500 mg PO BID PRN #20 tab 07/25/20 nitrofurantoin monohyd/m-cryst 100 mg PO BID 3 Days #6 cap 08/29/20 [Macrobid] amoxicillin-pot clavulanate 1 tab PO BID #20 tab 09/03/20 [Augmentin] ibuprofen 600 mg PO TID PRN #10 tab 01/07/21 prednisone 20 mg PO DAILY #4 tab 01/07/21 Allergies Allergy/AdvReac Type Severity Reaction Status Date / Time No Known Allergies Allergy Verified 09/30/20 13:04 Review of Systems Review of Systems Constitutional : No Weight loss, No Fever, No Chills, No Night Sweats, No Fatigue, No Malaise ENT/Mouth : No Hearing loss, No Ear Pain, No Nasal Congestion, No Sinus Pain, No Hoarseness, No sore throat, No Rhinorrhea, No Swallowing Difficulty Eyes: No Eye Pain, No Swelling, No Redness, No Foreign Body, No Discharge, No Vision Changes Cardiovascular : No Chest Pain, No SOB, No Dyspnea on Exertion, No Orthopnea, No Edema, No Palpitations Respiratory : No Cough, No Sputum, No Wheezing, No Smoke Exposure, No Dyspnea Gastrointestinal : No Nausea, No Vomiting, No Diarrhea, No Constipation, complaining of mild suprapubic pain, right flank pain, No Hematochezia, No Melena Genitourinary : no irregular bleeding, No Dysuria, No Urinary Frequency, No Hematuria, No Urinary Incontinence, No Urgency, No Flank Pain, No Urinary Flow Changes, No Hesitancy Musculoskeletal : No joint pain, No Myalgias, No Joint Swelling Skin : No Skin Lesions, No rash Neuro : No Weakness, No Numbness, No Paresthesias, No Loss of Consciousness, No Dizziness, No Headache Psych : No Anxiety/Panic, No Depression, No SI/HI/AH/VH, No Social Issues, Heme/Lymph: No Bruising, No Bleeding,No Lymphadenopathy Endocrine : No Polyuria, No Polydipsia, No Temperature Intolerance Physical Exam Vital Signs: Vital Signs: Last Vital Signs Temp 98.3 F 01/07/21 10:35 Pulse 63 01/07/21 10:35 Resp 16 01/07/21 10:35 BP 107/71 01/07/21 10:35 Pulse Ox 100 01/07/21 10:35 Body Mass Index 26.2 Appearance: Alert. Oriented X3. No acute distress, flat affect, unwilling to take her sunglasses off Eyes: Pupils equal, round and reactive to light. ENT: Pharynx normal. Neck: Normal inspection. Neck supple. No lymph nodes noted. No crepitus CVS: Normal heart rate and rhythm. Pulses normal. Normal S1 and S2 Respiratory: No respiratory distress. Breath sounds normal. No Wheezing. No rales Abdomen: Soft and nontender. No rigidity. No distention, no CVA Skin: Skin warm and dry. Normal skin color. Normal skin turgor. Extremities: No lower extremity edema. No lower extremity edema. No Lacerations. No Rash Neuro: Oriented X 3. No motor deficit. No sensory deficit. Moving all extermities. No slurred speech. Course Course Course Narrative: I discussed the labs and imaging with the patient. Patient has a 4 x 8 mm central right renal pelvis stone with no hydronephrosis, unlikely to be causing patient's symptoms. Patient's labs are fairly unremarkable other than her urine. On multiple locations, patient has had hematuria, now she has proteinuria. At this time, patient has no pain. I discussed with the patient that she needs to follow up with Urology, as she may need cystoscopy MDM - Abdominal Pain Lab Data Result diagrams: 01/07/21 11:07 01/07/21 11:07 Labs: Lab Results 03/30/21 03/30/21 03/30/21 Range/Units 11:07 11:07 11:07 WBC 10.3 (4.8-10.8) X10*3/uL RBC 4.80 (4.20-5.50) X10*6/uL Hgb 14.1 (12.0-16.0) g/dl Hct 43.6 (37-47) % MCV 90.8 (80-98) fL MCH 29.4 (27.0-33.0) pg MCHC 32.3 (31.0-35.0) g/dl RDW 11.8 (11.0-16.0) % Plt Count 199 (160-400) X10*3/uL MPV 11.1 (9.4-12.3) fL Immature Gran % (Auto) 0.5 H (0.0-0.4) % Neut % (Auto) 79.9 H (45-73) % Lymph % (Auto) 12.7 L (20-40) % [place] % (Auto) 5.7 (2-11) % Eos % (Auto) 0.9 (0-4) % Baso % (Auto) 0.3 (0-2) % Lymph # (Auto) 1.3 (1.2-4.9) X10*3/uL [place] # (Auto) 0.6 (0.1-1.2) X10*3/uL Eos # (Auto) 0.1 (0.0-0.4) X10*3/uL Baso # (Auto) 0.0 (0.0-0.2) X10*3/uL Abs Immat Gran (auto) 0.05 H (0.00-0.03) X10*3/uL Absolute Neuts (auto) 8.2 (2.0-8.3) X10*3/uL Absolute Nucleated RBC 0.000 (0.0-0.012) X10*3/uL Nucleated RBC % (auto) 0.0 (0.0-0.2) /100WBC Sodium 142 (135-145) mmol/L Potassium 4.8 (3.3-5.1) mmol/L Chloride 103 (96-108) mmol/L Carbon Dioxide 27 (22-29) mmol/L Anion Gap 17 (12-20) BUN 12 (9-16) mg/dL Creatinine 0.91 (0.5-1.4) mg/dL Estim Creat Clear Calc 64.3 Estimated GFR > 60 Random Glucose 113 (60-115) mg/dL Calcium 10.0 (8.4-10.2) mg/dL Total Bilirubin 0.6 (0.0-1.0) mg/dL Direct Bilirubin 0.2 (0.0-0.5) mg/dL AST 28 D (5-31) U/L ALT 22 (0-31) U/L Alkaline Phosphatase 71 (39-117) U/L Total Protein 7.2 (6.5-8.0) g/dL Albumin 4.4 (3.5-5.0) g/dL Urine Color YELLOW Urine Appearance CLOUDY Urine pH 5.0 (5.0-8.0) Ur Specific [place] >= 1.030 H (1.005-1.025) Urine Protein 2+ H (NEG-TRACE) MG/DL Urine Glucose (UA) NEG (NEG) MG/DL Urine Ketones 5 (NEG) MG/DL Urine Blood 3+ H (NEG) Urine Nitrite NEG (NEG) Ur Leukocyte Esterase NEG (NEG) Urine RBC 50-75 H (0) /HPF Urine WBC 0-2 (0-4) /HPF Ur Squamous Epith Cells 1+ /LPF Calcium Oxalate Crystal 2+ /LPF Urine Bacteria 2+ /LPF Discharge Plan Discharge Clinical Impression: Hematuria, microscopic, Flank pain Patient Disposition: Home, Self-Care Instructions: Hematuria (ED), Flank Pain (ED) Additional Instructions: Please call Urology to schedule an appointment. Please follow-up with your primary care physician tomorrow. If you have any worsening or new symptoms, please return to the emergency room or call 911 Prescriptions: New ibuprofen 600 mg tablet 600 mg PO TID PRN (Reason: pain) Qty: 10 RF: 0 prednisone 20 mg tablet 20 mg PO DAILY Qty: 4 RF: 0 No Action naproxen 500 mg tablet 500 mg PO BID PRN (Reason: pain) Qty: 20 RF: 0 nitrofurantoin monohyd/m-cryst [Macrobid] 100 mg capsule 100 mg PO BID 3 Days Qty: 6 RF: 0 amoxicillin-pot clavulanate [Augmentin] 875-125 mg tablet 1 tab PO BID Qty: 20 RF: 0 PMFSH Past Medical History Medical History delivery delivered No known health problems Occasional tremors Social History Social History Alcohol intake: unknown Smoking Status: Unknown if ever smoked Use of substances other than those prescribed or required for medical reasons: Unknown Advance Directives: No Advance Directives Information Provided: No
[2021-01-07 11:18] LABS: MANUAL DIFF FLAG NO
[2021-01-07 11:23] LABS: Glucose Urine UA NEG (NEG); Leukocyte Esterase Urine NEG (NEG); Nitrite Urine NEG (NEG); Specific Gravity - Urine >= 1.030 (1.005-1.025); Urine Blood 3+ (NEG); Urine Ketones 5 MG/DL (NEG); Urine Protein 2+ MG/DL (NEG-TRACE)
[2021-01-07 11:24] LABS: Appearance Urine CLOUDY; Color Urine YELLOW
[2021-01-07 11:30] LABS: Basophils Percent Auto 0.3 % (0-2); Eosinophils Absolute Auto 0.1 X10*3/uL (0.0-0.4); Eosinophils Percent Auto 0.9 % (0-4); Hematocrit 43.6 % (37-47); Hemoglobin 14.1 g/dl (12.0-16.0); Imm Gran Abs Auto 0.05 X10*3/uL (0.00-0.03); Imm Gran Pct Auto 0.5 % (0.0-0.4); Lymphocytes Absolute Auto 1.3 X10*3/uL (1.2-4.9); Lymphocytes Percent Auto 12.7 % (20-40); Mean Corpuscular HGB Conc 32.3 g/dl (31.0-35.0); Mean Corpuscular Hemoglobin 29.4 pg (27.0-33.0); Mean Corpuscular Volume 90.8 fL (80-98); Mean Platelet Volume 11.1 fL (9.4-12.3); Monocytes Absolute Auto 0.6 X10*3/uL (0.1-1.2); Monocytes Percent Auto 5.7 % (2-11); Neutrophils Absolute Auto 8.2 X10*3/uL (2.0-8.3); Neutrophils Percent Auto 79.9 % (45-73); Platelet Count 199 X10*3/uL (160-400); Red Cell Distribution Width 11.8 % (11.0-16.0); White Blood Count 10.3 X10*3/uL (4.8-10.8)
[2021-01-07 11:36] LABS: Bacteria Urine 2+ /LPF; Calcium Oxalate Crystals Urine 2+ /LPF; RBC Urine 50-75 /HPF (0); Squamous Epithelial Cell Urine 1+ /LPF; WBC Urine 0-2 /HPF (0-4)
[2021-01-07 11:42] LABS: Alanine Aminotransferase 22 U/L (0-31); Albumin Level 4.4 g/dL (3.5-5.0); Alkaline Phosphatase 71 U/L (39-117); Anion Gap 17 (12-20); Aspartate Amino Transferase 28 U/L (5-31); Bilirubin Direct 0.2 mg/dL (0.0-0.5); Bilirubin Total 0.6 mg/dL (0.0-1.0); Blood Urea Nitrogen 12 mg/dL (9-16); Carbon Dioxide 27 mmol/L (22-29); Chloride 103 mmol/L (96-108); Creatinine Clr Calc Pharmacy 64.3; Estimated Glomerular Filt Rate > 60; Glucose Random 113 mg/dL (60-115); Potassium 4.8 mmol/L (3.3-5.1); Sodium 142 mmol/L (135-145); Total Protein 7.2 g/dL (6.5-8.0)
== END 2021-01-07 13:26 | disposition home or self-care (01) ==
PROVIDERS: Emergency Provider Emergency Medicine
DX: R31.29 Other microscopic hematuria (principal); R10.9 Unspecified abdominal pain; Z79.899 Other long term (current) drug therapy
CPT/HCPCS: 36415; 74176; 80048; 80076; 81001; 85025; 99284

== ENCOUNTER 2021-01-09 11:57 | Outpatient (REF) | payer MEDICAID, SELFPAY ==
--- NOTE | ~2021-01-09 | MM_ITS ---
EXAMINATION: MM SCREENING DIGITAL BREAST TOMOSYNTHESIS, BILATERAL CLINICAL INFORMATION: Screening. Asymptomatic. The lifetime risk of breast cancer based on the Tyrer-Cuzick Model is 5.6%. COMPARISON: Mammography: December 18, 2019 and studies dating back to November 10, 2013 TECHNIQUE: Digital breast tomosynthesis is performed in both the craniocaudal and mediolateral oblique views along with computer-aided detection (CAD). Synthesized 2D images are generated from the tomosynthesis. FINDINGS: There are scattered areas of fibroglandular density (ACR BI-RADS breast composition Category b). There are no significant masses, abnormal calcifications, or other abnormalities. MM/MM tomosynthesis screening BI IMPRESSION: There are no significant changes from prior study. ASSESSMENT: BI-RADS 1: Negative RECOMMENDATION: Routine annual mammography screening. This patient's information was entered into a reminder system with a target due date for their next mammogram.
== END 2021-01-09 11:58 | disposition home or self-care (01) ==
LOC: HO.MAMMO 11:57
PROVIDERS: Visit Provider Nurse Practitioner Family
DX: Z12.31 Encounter for screening mammogram for malignant neoplasm of breast (principal)
CPT/HCPCS: 77063; 77067

== ENCOUNTER → 2021-01-16 13:51 | Outpatient (BNVA) | payer MEDICAID, SELFPAY | PROVIDERS: PCP Family Medicine; Visit Provider Urology | DX: N20.0 Calculus of kidney (principal) | CPT/HCPCS: 99202 ==

== ENCOUNTER → 2021-01-20 07:45 | Outpatient (BNVA) | payer MEDICAID, SELFPAY | PROVIDERS: PCP Family Medicine; Visit Provider Advanced Practice Midwife ==

== ENCOUNTER 2021-05-14 05:57 | Day surgery (SDC) | payer MEDICAID, SELFPAY ==
[2021-05-07 15:06] VITALS: BMI 26.2
--- NOTE | 2021-05-13 10:20 | HO.ANESPROP2 ---
Documented by User: Brittani Emerson 05/13/21 10:21 HPI - Anesthesia Eval Consult details Narrative: 55yo F for Right Lithotripsy ESW No prev ESWL on record PMFSH Active Problems Active Problems: All Active Problems (Updated 05/07/21 @ 15:12 by Marcelle Lewis) Nephrolithiasis (Acute) Past Medical History Medical History (Updated 05/07/21 @ 15:12 by Marcelle Lewis) Anxiety Elevated cholesterol Occasional tremors Surgical History Surgical History Hx of section Hx of tubal ligation Social History Social History Alcohol intake: unknown Advance Directives Information Provided: No Meds Allergies Allergy/AdvReac Type Severity Reaction Status Date / Time No Known Allergies Allergy Verified 05/14/21 06:48 Home Medications Medication Instructions Recorded Confirmed Last Taken Type clonazepam 1 mg tablet (Klonopin) 1 mg PO BEDTIME 01/20/21 05/07/21 Unknown History trazodone 100 mg tablet 100 mg PO BEDTIME PRN 01/20/21 05/07/21 Unknown History atorvastatin 80 mg tablet 1 tab PO BEDTIME 05/07/21 05/07/21 Unknown History benztropine 0.5 mg tablet 1 tab PO BID 05/07/21 05/07/21 Unknown History cholecalciferol (vitamin D3) 50 1 cap PO DAILY 05/07/21 05/07/21 Unknown History mcg (2,000 unit) capsule clonazepam 1 mg tablet 1 - 2 tab PO BEDTIME PRN 05/07/21 05/07/21 Unknown History clonidine HCl 0.2 mg tablet 1 tab PO BEDTIME 05/07/21 05/07/21 Unknown History doxepin 10 mg capsule 1 cap PO BEDTIME 05/07/21 05/07/21 Unknown History haloperidol 5 mg tablet 5 mg PO BEDTIME 05/07/21 05/07/21 Unknown History propranolol 20 mg tablet 1 tab PO BID PRN 05/07/21 05/07/21 Unknown History topiramate 50 mg tablet 1 tab PO BID 05/07/21 05/07/21 Unknown History trazodone 100 mg tablet 1 tab PO BEDTIME 05/07/21 05/07/21 Unknown History Exam Exam Date and Time: May 13, 2021 1020 Height,Weight and Vital Signs: Height 5 ft 3 in Weight 67.132 kg Pertinent Lab Results Pertinent Lab Results: Laboratory Tests 01/07/21 01/07/21 11:07 11:07 WBC 10.3 Hgb 14.1 Hct 43.6 Plt Count 199 Sodium 142 Potassium 4.8 Chloride 103 Carbon Dioxide 27 BUN 12 Creatinine 0.91 Assessment and Plan Assessment Anesthesia Assessment: Chart Reviewed Documented by User: Beba Grayson 05/14/21 07:28 [facility] Past Medical History Medical History (Updated 05/07/21 @ 15:12 by Marcelle Lewis) Anxiety Elevated cholesterol Occasional tremors Surgical History Surgical History Hx of section Hx of tubal ligation History of Problems with Anesthesia: No Social History Social History Alcohol intake: unknown Advance Directives Information Provided: No Meds Allergies Allergy/AdvReac Type Severity Reaction Status Date / Time No Known Allergies Allergy Verified 05/14/21 06:48 Home Medications Medication Instructions Recorded Confirmed Last Taken Type clonazepam 1 mg tablet (Klonopin) 1 mg PO BEDTIME 01/20/21 05/07/21 Unknown History trazodone 100 mg tablet 100 mg PO BEDTIME PRN 01/20/21 05/07/21 Unknown History atorvastatin 80 mg tablet 1 tab PO BEDTIME 05/07/21 05/07/21 Unknown History benztropine 0.5 mg tablet 1 tab PO BID 05/07/21 05/07/21 Unknown History cholecalciferol (vitamin D3) 50 1 cap PO DAILY 05/07/21 05/07/21 Unknown History mcg (2,000 unit) capsule clonazepam 1 mg tablet 1 - 2 tab PO BEDTIME PRN 05/07/21 05/07/21 Unknown History clonidine HCl 0.2 mg tablet 1 tab PO BEDTIME 05/07/21 05/07/21 Unknown History doxepin 10 mg capsule 1 cap PO BEDTIME 05/07/21 05/07/21 Unknown History haloperidol 5 mg tablet 5 mg PO BEDTIME 05/07/21 05/07/21 Unknown History propranolol 20 mg tablet 1 tab PO BID PRN 05/07/21 05/07/21 Unknown History topiramate 50 mg tablet 1 tab PO BID 05/07/21 05/07/21 Unknown History trazodone 100 mg tablet 1 tab PO BEDTIME 05/07/21 05/07/21 Unknown History Exam Airway Mallampati Class: II (Small mouth) TM Dist: >3cm Neck ROM: Full Heart: RRR Lungs: CTA Assessment and Plan Assessment Anesthesia Assessment: Anesthesia Plan Discussed and Chart Reviewed Final Anesthetic Review History of Problems with Anesthesia: No NPO: Yes ASA Class: II Final Preanesthetic Review: Meds/Allgs Chart Reviewed, Consent Obtained/Reviewed and Anes Risks/Benef Reviewed Patient Risk: Low Procedure Risk: Low Anesthetic Plan Anesthetic Plan: MAC: Disposition: Standard PACU
[2021-05-14] VITALS (10 sets, daily range): BP systolic 103–122; BP diastolic 55–69; PULSE 62–83; RESP 16–20; TEMP 36.5–36.8; O2SAT 96–99
--- NOTE | ~2021-05-14 | XR_ITS ---
EXAMINATION: XR ABDOMEN KUB CLINICAL INDICATION: Stones COMPARISON: CT of January 07, 2021 TECHNIQUE: AP view of the abdomen. FINDINGS: Overlying the region of the lower pole of the right kidney there is a 9 x 6 mm calculus. No dilated loops of large or small bowel are evident. Bony structures unremarkable. XR/XR KUB IMPRESSION: 9 x 6 mm right renal calculus.
[2021-05-14] MEDS: Acetaminophen 325 MG TABLET 650 MG PO (06:39)
[2021-05-14] MEDS: Lactated Ringers 1,000 ML 100 ML IVCONT (06:47)
--- NOTE | 2021-05-14 06:48 | PC.NURSE ---
Silver bracelet removed and placed in patient labeled blue bin.
--- NOTE | 2021-05-14 07:45 | MHC.SHP ---
Pre-Procedural Eval Section A Date of Service: 05/14/21 Section B Chief Complaint: calculus of kidney Relevant Social History: None Present Medications: see Short Stay Collaborative assessment Medical History: No relevant PMH History of Previous Operations: No relevant previous surgery Allergies: Allergies Allergy/AdvReac Type Severity Reaction Status Date / Time No Known Allergies Allergy Verified 05/14/21 06:48 Review of Systems Sugical H&P ROS: Negative: Constitution, Cardiovascular, Respiratory, Neurological, Psychiatric, Hem-Onc, Allergic/Immunologic, Gastrointestinal, Genitourinary, Musculoskeletal, Integumentary, Endocrine and Eyes/Ears/Nose/Throat Exam Surgical H&P Exam: Normal: HEENT, Normal: Heart, Normal: Lungs, Normal: Extremities, Normal: Abdomen, Normal: Skin and Normal: Neurological Plan Diagnosis/Plan: Unchanged (right ESWL stone) I have reviewed the history and physical and performed a pertinent physical examination on my patient. No changes have occurred unless specified.
--- NOTE | 2021-05-14 07:53 | W.PM.OPN ---
Operative Note Operative Note Date of Service: 05/14/21 Narrative: PreOperative Diagnosis: right Renal stones Post Operative Diagnosis: right Renal stones Procedure: right ESWL Surgeon: Dr David Nobles Anesthesia: mac/sedation Indications for procedure: They understand ESWL may be a staged procedure and subsequent intervention may be required based on imaging after ESWL. They also understand there is a risk of bleeding, infection, damage to adjacent organs. - right 6x8mm renal pelvis stone Procedure: After informed consent was verified the patient was brought to the operating room and placed in a supine position. Anesthesia was performed per protocol. Safety pause time-out was performed. Imaging was in the room and laterality confirmed. ESWL was performed. The 1st 500 shocks were performed at 60 hertz. These were performed with increasing power. Once maximum power was reached the rate was increased to 180 hertz. A total of 2500 shocks were given. Fluoroscopy showed stone disintegration. They tolerated procedure well and was transferred to the recovery area upon completion.
[2021-05-14] MEDS: fentaNYL citrate/PF 100 MCG/2 ML VIAL 25 MCG IVPUSH (08:31)
[2021-05-14] MEDS: fentaNYL citrate/PF 100 MCG/2 ML VIAL 50 MCG IVPUSH ×2 (08:38→09:24)
[2021-05-14] MEDS: Ketorolac Tromethamine 15 MG/ML VIAL 30 MG IVPUSH (09:00)
[2021-05-14] MEDS: oxyCODONE HCl Immed Release 5 MG TABLET PO (09:27)
== END 2021-05-14 10:24 ==
LOC: HO.SSS 05:58
PROVIDERS: PCP Family Medicine; Visit Provider Urology
PROC: (CPT 50590; principal; 2021-05-14 07:30)
DX: N20.0 Calculus of kidney (principal); R25.1 Tremor, unspecified; F41.9 Anxiety disorder, unspecified; E78.00 Pure hypercholesterolemia, unspecified; Z79.899 Other long term (current) drug therapy
CPT/HCPCS: 50590; 74018; J1885; J2250; J2405; J3010

== ENCOUNTER 2021-06-02 14:39 | Outpatient (REF) | payer MEDICAID, SELFPAY ==
--- NOTE | ~2021-06-02 | US_ITS ---
EXAMINATION: US RETROPERITONEAL LIMITED (RENAL ONLY) CLINICAL INFORMATION: Calculus of kidney. COMPARISON: KUB dated 05/14/2021. CT abdomen and pelvis without contrast dated 01/07/2021. X-ray abdomen dated 02/06/2011. TECHNIQUE: Real-time imaging of the kidneys. FINDINGS: RIGHT KIDNEY: 10.6 x 3.7 x 4.7 cm (SAG x AP x TRV). The kidney is normal in size, contour, and echogenicity. Renal cortical thickness is normal. No renal calculi or hydronephrosis. At the upper pole, 8 mm in maximal diameter anechoic, simple cyst is seen. LEFT KIDNEY: 10.1 x 4.6 x 4.1 cm (SAG x AP x TRV). The kidney is normal in size, contour, and echogenicity. Renal cortical thickness is normal. No calculi or focal parenchymal lesions. No hydronephrosis. US/US renal BI IMPRESSION: A small simple right renal cyst incidentally noted. The examination is otherwise unremarkable. In particular, no renal calculus or hydronephrosis is seen bilaterally.
== END 2021-06-02 14:40 | disposition home or self-care (01) ==
LOC: HO.US 14:39
PROVIDERS: Visit Provider Urology
DX: N20.0 Calculus of kidney (principal)
CPT/HCPCS: 76775

== ENCOUNTER → 2021-06-06 11:59 | Outpatient (BNVA) | payer MEDICAID, SELFPAY | PROVIDERS: PCP Family Medicine; Visit Provider Urology ==

== ENCOUNTER 2021-10-13 09:47 | Outpatient (REF) | payer MEDICAID, SELFPAY ==
--- NOTE | ~2021-10-13 | US_ITS ---
EXAMINATION: US RETROPERITONEAL LIMITED (RENAL ONLY) CLINICAL INFORMATION: Calculus of kidney. COMPARISON: Renal ultrasound 06/02/2021. X-ray abdomen KUB 05/14/2021. CT abdomen and pelvis 01/07/2021. TECHNIQUE: Real-time imaging of the kidneys. FINDINGS: RIGHT KIDNEY: 10.0 x 3.6 x 4.8 cm (SAG x AP x TRV). The kidney is normal in size, contour, and echogenicity. Renal cortical thickness is normal. There is a 6 x 8 x 6 mm cyst in the upper pole. No renal calculi or hydronephrosis. LEFT KIDNEY: 9.4 x 4.7 x 5.0 cm (SAG x AP x TRV). The kidney is normal in size, contour, and echogenicity. Renal cortical thickness is normal. No calculi or focal parenchymal lesions. No hydronephrosis. US/US renal BI IMPRESSION: Small right renal cyst. No stone seen.
== END 2021-10-13 09:48 | disposition home or self-care (01) ==
LOC: HO.US 09:47
PROVIDERS: Visit Provider Urology
DX: N20.0 Calculus of kidney (principal)
CPT/HCPCS: 76775

== ENCOUNTER → 2021-12-04 14:07 | Outpatient (BNVA) | payer MEDICAID, SELFPAY | PROVIDERS: PCP Family Medicine | DX: Z13.89 Encounter for screening for other disorder (principal) | CPT/HCPCS: 99212 ==

== ENCOUNTER → 2021-12-05 14:04 | Outpatient (BNVA) | payer MEDICAID, SELFPAY | PROVIDERS: PCP Family Medicine ==

== ENCOUNTER 2022-01-12 11:14 | Outpatient (REF) | payer MEDICAID, SELFPAY ==
--- NOTE | ~2022-01-12 | MM_ITS ---
EXAMINATION: MM SCREENING DIGITAL BREAST TOMOSYNTHESIS, BILATERAL CLINICAL INFORMATION: Screening. Asymptomatic. The lifetime risk of breast cancer based on the Tyrer-Cuzick Model is 5%. COMPARISON: Mammography: 01/09/2021, 12/18/2019, 12/14/2018 TECHNIQUE: Digital breast tomosynthesis is performed in both the craniocaudal and mediolateral oblique views along with computer-aided detection (CAD). Synthesized 2D images are generated from the tomosynthesis. FINDINGS: There are scattered areas of fibroglandular density (ACR BI-RADS breast composition Category b). There are no significant masses, abnormal calcifications, or other abnormalities. Parenchymal pattern is similar to prior studies. There is biopsy clip marker again noted mid upper right breast. The axilla are unremarkable. MM/MM tomosynthesis screening BI IMPRESSION: No mammographic evidence of malignancy. ASSESSMENT: BI-RADS 1: Negative RECOMMENDATION: Routine annual mammography screening. This patient's information was entered into a reminder system with a target due date for their next mammogram.
== END 2022-01-12 11:15 | disposition home or self-care (01) ==
LOC: HO.MAMMO 11:14
PROVIDERS: Visit Provider Family Medicine
DX: Z12.31 Encounter for screening mammogram for malignant neoplasm of breast (principal)
CPT/HCPCS: 77063; 77067

== ENCOUNTER 2022-01-22 08:35 | Outpatient (REF) | payer MEDICAID, SELFPAY ==
[2022-01-22 16:02] LABS: CT PCR NOT DETECTED (Not Detect.); NG PCR NOT DETECTED (Not Detect.)
== END 2022-01-22 08:36 | disposition home or self-care (01) ==
LOC: HO.LAB 08:35
PROVIDERS: PCP Family Medicine; Visit Provider Advanced Practice Midwife
DX: Z01.419 Encounter for gynecological examination (general) (routine) without abnormal findings (principal); Z20.2 Contact with and (suspected) exposure to infections with a predominantly sexual mode of transmission
CPT/HCPCS: 87491; 87591

== ENCOUNTER 2022-05-07 09:51 | Emergency (ER) | payer MEDICAID, SELFPAY ==
--- NOTE | ~2022-05-07 | US_ITS ---
EXAMINATION: US RETROPERITONEAL LIMITED (RENAL ONLY) CLINICAL INFORMATION: Bilateral flank pain radiating to lower abdomen. COMPARISON: October 13, 2021 and June 02, 2021 TECHNIQUE: Renal ultrasound. FINDINGS: RIGHT KIDNEY: 11.1 x 4.0 x 5.0 cm (SAG x AP x TRV). The kidney is normal in size, contour, and echogenicity. Renal cortical thickness is normal. No calculi or solid focal parenchymal lesions. No hydronephrosis. There is again noted to be an 8 x 7 x 7 mm simple appearing upper pole cyst. LEFT KIDNEY: 9.4 x 5.7 x 4.9 cm (SAG x AP x TRV). The kidney is normal in size, contour, and echogenicity. Renal cortical thickness is normal. No calculi or focal parenchymal lesions. No hydronephrosis. US/US renal BI IMPRESSION: No evidence of nephrolithiasis or hydronephrosis. Subcentimeter cyst upper pole of the right kidney..
[2022-05-07 09:56] VITALS: BP 120/61; PULSE 100; RESP 17; TEMP 37; O2SAT 95; BMI 31.8
[2022-05-07 10:26] LABS: MANUAL DIFF FLAG NO
[2022-05-07 10:27] LABS: Appearance Urine CLEAR; Color Urine YELLOW; Glucose Urine UA NEG (NEG); Leukocyte Esterase Urine NEG (NEG); Nitrite Urine NEG (NEG); PH 5.5 (5.0-8.0); Specific Gravity - Urine >= 1.030 (1.005-1.025); UACC Culture Trigger NO; Urine Blood TRACE (NEG); Urine Ketones NEG (NEG); Urine Protein NEG (NEG-TRACE)
[2022-05-07 10:32] LABS: Basophils Percent Auto 0.6 % (0-2); Eosinophils Absolute Auto 0.2 X10*3/uL (0.0-0.4); Eosinophils Percent Auto 2.6 % (0-4); Hematocrit 42.2 % (37.0-47.0); Hemoglobin 13.9 g/dl (12.0-16.0); Imm Gran Abs Auto 0.02 X10*3/uL (0.00-0.03); Imm Gran Pct Auto 0.3 % (0.0-0.4); Lymphocytes Percent Auto 32.2 % (20-40); Mean Corpuscular HGB Conc 32.9 g/dl (31.0-35.0); Mean Corpuscular Hemoglobin 29.8 pg (27.0-33.0); Mean Corpuscular Volume 90.4 fL (80.0-98.0); Mean Platelet Volume 10.2 fL (9.4-12.3); Monocytes Absolute Auto 0.5 X10*3/uL (0.1-1.2); Monocytes Percent Auto 7.3 % (2-11); Neutrophils Absolute Auto 3.5 x10*3/uL (2.0-8.3); Platelet Count 220 X10*3/uL (160-400); Red Blood Count 4.67 X10*6/uL (4.20-5.50); Red Cell Distribution Width 12.9 % (11.0-16.0); White Blood Count 6.2 X10*3/uL (4.8-10.8)
[2022-05-07 10:39] LABS: Bacteria Urine TRACE /LPF; Squamous Epithelial Cell Urine 3+ /LPF; WBC Urine 0-2 /HPF (0-4)
[2022-05-07 10:48] LABS: Alanine Aminotransferase 25 U/L (0-31); Albumin Level 4.6 g/dL (3.5-5.0); Alkaline Phosphatase 105 U/L (39-117); Anion Gap 13 (12-20); Aspartate Amino Transferase 19 U/L (5-31); Bilirubin Total 0.3 mg/dL (0.0-1.0); Blood Urea Nitrogen 14 mg/dL (9-16); Calcium 9.6 mg/dL (8.4-10.2); Carbon Dioxide 23 mmol/L (22-29); Chloride 110 mmol/L (96-108); Creatinine Clr Calc Pharmacy 56.7; Estimated Glomerular Filt Rate 50; Glucose Random 124 mg/dL (60-115); Potassium 4.7 mmol/L (3.3-5.1); Sodium 141 mmol/L (135-145); Total Protein 7.1 g/dL (6.5-8.0)
[2022-05-07 11:37] VITALS: BP 114/81; PULSE 96; RESP 18; TEMP 36.6; O2SAT 97
--- NOTE | 2022-05-07 11:56 | ED.GENADULT ---
HPI - General Adult General Chief complaint: General Medical Stated complaint: abd and back pain Time Seen by Provider: 05/07/22 11:42 Source: patient Mode of arrival: ambulatory History of Present Illness HPI narrative: 56-year-old [place] Citizen-speaking female with a past medical history of anxiety, HLD, renal cysts, nephrolithiasis, presenting to the ED complaining of intermittent lower abdominal / suprapubic pain radiating to bilateral flanks x5 days. reports symptoms feel similar to prior renal stones. Denies fever, chills, nausea, vomiting, dysuria, hematuria, vaginal bleeding, vaginal discharge Onset (ago): day(s) Related Data Home Medications Medication Instructions Recorded Confirmed clonazepam 1 mg tablet (Klonopin) 1 mg PO BEDTIME 01/20/21 05/07/21 atorvastatin 80 mg tablet 1 tab PO BEDTIME 05/07/21 05/07/21 benztropine 0.5 mg tablet 1 tab PO BID 05/07/21 05/07/21 cholecalciferol (vitamin D3) 50 1 cap PO DAILY 05/07/21 05/07/21 mcg (2,000 unit) capsule clonazepam 1 mg tablet 1 - 2 tab PO BEDTIME PRN anxiety 05/07/21 05/07/21 clonidine HCl 0.2 mg tablet 1 tab PO BEDTIME 05/07/21 05/07/21 doxepin 10 mg capsule 1 cap PO BEDTIME 05/07/21 05/07/21 haloperidol 5 mg tablet 5 mg PO BEDTIME 05/07/21 05/07/21 Previous Rx's Medication Instructions Recorded allopurinol 100 mg tablet 100 mg PO DAILY 90 days #90 tabs 05/14/21 pyridoxine (vitamin B6) 100 mg 100 mg PO DAILY 90 days #90 tabs 02/02/22 tablet Allergies Allergy/AdvReac Type Severity Reaction Status Date / Time No Known Allergies Allergy Verified 05/07/22 09:55 Review of Systems Review of Systems: Constitutional: No Fever, No Chills, No Fatigue, No Malaise ENT/Mouth: No Hearing loss, No Ear Pain, No Nasal Congestion,No sore throat, No Rhinorrhea, No Swallowing Difficulty Eyes: No Eye Pain, No Swelling, No Redness, Cardiovascular: No Chest Pain, No SOB, No Dyspnea on Exertion, No Orthopnea, No Edema, No Palpitations Respiratory: No Cough, No Sputum, No Dyspnea Gastrointestinal: No Nausea, No Vomiting, No Diarrhea, No Constipation, + Abdominal pain Genitourinary: No irregular bleeding, No Dysuria, No Urinary Frequency, No Hematuria, No Urinary Incontinence/retention, No Urgency, + Flank Pain, No Urinary Flow Changes Musculoskeletal: No joint pain, No Myalgias, No Joint Swelling Skin: No Skin Lesions, No rash Neuro: No Weakness, No Dizziness, No Headache Yes all other systems are reviewed and are negative Constitutional: Constitutional: Reports as per [facility] Past Medical History Attestation statement: The following information was validated with the patient. Medical History Anxiety Elevated cholesterol Occasional tremors Renal cyst Surgical History Hx of section Hx of tubal ligation Social History Social History Alcohol intake: never Patient Tobacco Use Status: Never used Tobacco Advance Directives: No Advance Directives Information Provided: No Physical Exam ED Vital Signs: Vital Signs - 24 hr 05/07/22 09:56 05/07/22 11:37 Temperature 98.6 F 97.9 F Pulse Rate 100 96 Respiratory Rate 17 18 Blood Pressure 120/61 114/81 Pulse Oximetry 95 97 Oxygen Delivery Method Room Air Room Air BMI result Body Mass Index 31.8 Const General: cooperative, healthy appearing and no acute distress Orientation/consciousness: patient oriented x3 Limitations: no limitations HENMT Head: Yes normal to inspection and Yes atraumatic Ears: hearing grossly normal bilaterally General nose exam: Normal external nose present Face and sinus: Yes normal facial exam Eyes General: appearance normal, both eyes and all related structures EOM: EOMs intact bilaterally Neck Neck: Yes normal visual inspection and Yes no meningeal signs Resp Effort & Inspection: normal respiratory effort and no respiratory distress Auscultation: clear to auscultation bilaterally Cardio Rate: regular rate Heart sounds: S1 normal heart sound present and S2 normal heart sound present GI Inspection: Yes normal to inspection Palpation (GI): Soft to palpation, nontender, no guarding and not rigid General: Yes no CVA tenderness Back/Spine/Pelvis Back: no CVA tenderness Skin Rashes: no rashes Wounds: no wounds Neuro General: patient oriented x3, tone normal and no meningeal signs Gait exam (Neuro): Normal gait present Extrem General: Yes normal to inspection Course Course Course Narrative: -1354-- no leukocytosis. Labs otherwise unremarkable. UA not infected. US renal BI IMPRESSION: No evidence of nephrolithiasis or hydronephrosis. ? Subcentimeter cyst upper pole of the right kidney.. >> Results discussed with patient with translator interpreter including worrisome signs and symptoms and strict return precautions Medical Decision Making MDM Narrative Medical decision making narrative: 56-year-old [place] Citizen-speaking female with a past medical history of anxiety, HLD, renal cysts, nephrolithiasis, presenting to the ED complaining of intermittent lower abdominal / suprapubic pain radiating to bilateral flanks x5 days. on exam vital signs stable, NAD/ nontoxic appearing, abdomen is soft and nontender, no CVA tenderness. Concern for renal colic/ nephrolithiasis vs UTI /pyelo. Lower suspicion for ovarian pathology including torsion. The lower suspicion for diverticulitis/ appendicitis without tenderness on exam plan: Labs, UA, bilateral renal ultrasound, re-evaluate Medical Records Medical records reviewed: Yes I reviewed the patient's medical records. Lab Data Lab results reviewed: Yes I reviewed the patient's lab results. Result diagrams: 05/07/22 10:20 05/07/22 10:20 Labs: Lab Results 05/07/22 05/07/22 05/07/22 Range/Units 10:19 10:20 10:20 WBC 6.2 (4.8-10.8) X10*3/uL RBC 4.67 (4.20-5.50) X10*6/uL Hgb 13.9 (12.0-16.0) g/dl Hct 42.2 (37.0-47.0) % MCV 90.4 (80.0-98.0) fL MCH 29.8 (27.0-33.0) pg MCHC 32.9 (31.0-35.0) g/dl RDW 12.9 (11.0-16.0) % Plt Count 220 (160-400) X10*3/uL MPV 10.2 (9.4-12.3) fL Immature Gran % (Auto) 0.3 (0.0-0.4) % Neut % (Auto) 57.0 (45-73) % Lymph % (Auto) 32.2 (20-40) % [place] % (Auto) 7.3 (2-11) % Eos % (Auto) 2.6 (0-4) % Baso % (Auto) 0.6 (0-2) % Lymph # (Auto) 2.0 (1.2-4.9) X10*3/uL [place] # (Auto) 0.5 (0.1-1.2) X10*3/uL Eos # (Auto) 0.2 (0.0-0.4) X10*3/uL Baso # (Auto) 0.0 (0.0-0.2) X10*3/uL Abs Immat Gran (auto) 0.02 (0.00-0.03) X10*3/uL Absolute Neuts (auto) 3.5 (2.0-8.3) x10*3/uL Absolute Nucleated RBC 0.000 (0.0-0.012) X10*3/uL Nucleated RBC % (auto) 0.0 (0.0-0.2) /100WBC Sodium 141 (135-145) mmol/L Potassium 4.7 (3.3-5.1) mmol/L Chloride 110 H (96-108) mmol/L Carbon Dioxide 23 (22-29) mmol/L Anion Gap 13 (12-20) BUN 14 (9-16) mg/dL Creatinine 1.12 (0.5-1.4) mg/dL Estim Creat Clear Calc 56.7 Estimated GFR 50 Random Glucose 124 H (60-115) mg/dL Calcium 9.6 (8.4-10.2) mg/dL Magnesium 2.0 (1.6-2.6) mg/dL Total Bilirubin 0.3 (0.0-1.0) mg/dL AST 19 (5-31) U/L ALT 25 (0-31) U/L Alkaline Phosphatase 105 D (39-117) U/L Total Protein 7.1 (6.5-8.0) g/dL Albumin 4.6 (3.5-5.0) g/dL Urine Color YELLOW Urine Appearance CLEAR Urine pH 5.5 (5.0-8.0) Ur Specific [place] >= 1.030 H (1.005-1.025) Urine Protein NEG (NEG-TRACE) MG/DL Urine Glucose (UA) NEG (NEG) MG/DL Urine Ketones NEG (NEG) MG/DL Urine Blood TRACE (NEG) Urine Nitrite NEG (NEG) Ur Leukocyte Esterase NEG (NEG) Urine RBC 1-4 (0) /HPF Urine WBC 0-2 (0-4) /HPF Ur Squamous Epith Cells 3+ /LPF Urine Bacteria TRACE /LPF Discharge Plan Discharge Clinical Impression: Cyst of right kidney Patient Disposition: Home, Self-Care Instructions: Kidney Cyst (ED) Additional Instructions: your blood work and urine were unremarkable today. Your ultrasound shows a small cyst in right kidney which you are aware of. Please take Tylenol /Motrin at home as needed for pain. Increase fluid intake. Follow up with her doctor. If symptoms persist or worsen return to the ED [place] an?lisis de yady y orina no fueron notables hoy. Carlson ecograf?a muestra un florin?o quiste en el ri??n derecho del que usted es consciente. [place] Tylenol/Motrin en casa seg?n sea necesario para el dolor. Aumentar la ingesta de l?quidos. Seguimiento con carlson m?dico. Si los s?ntomas persisten o empeoran, regrese al servicio de urgencias. Prescriptions: No Action pyridoxine (vitamin B6) 100 mg tablet 100 mg PO DAILY 90 Days Qty: 90 1RF atorvastatin 80 mg tablet 1 tab PO BEDTIME benztropine 0.5 mg tablet 1 tab PO BID haloperidol 5 mg tablet 5 mg PO BEDTIME clonazepam 1 mg tablet 1 - 2 tab PO BEDTIME PRN (Reason: anxiety) doxepin 10 mg capsule 1 cap PO BEDTIME clonidine HCl 0.2 mg tablet 1 tab PO BEDTIME cholecalciferol (vitamin D3) 50 mcg (2,000 unit) capsule 1 cap PO DAILY allopurinol 100 mg tablet 100 mg PO DAILY 90 Days Qty: 90 1RF clonazepam [Klonopin] 1 mg tablet 1 mg PO BEDTIME Rx Instructions: administer 30 minutes before bedtime Referrals: Rosemary Germain MD [Primary Care Provider] - 5 days Print Language: [place] Citizen
== END 2022-05-07 14:14 | disposition home or self-care (01) ==
PROVIDERS: Physician Assistant; Emergency Provider Student in an Organized Health Care Education/Training Program; PCP Family Medicine
DX: N28.1 Cyst of kidney, acquired (principal); M54.50 Low back pain, unspecified; R10.9 Unspecified abdominal pain; Z79.899 Other long term (current) drug therapy
CPT/HCPCS: 36415; 76775; 80053; 81001; 83735; 85025; 99283; 99284

== ENCOUNTER 2022-05-21 14:53 | Emergency (ER) | payer MEDICAID, SELFPAY ==
[2022-05-21 15:03] VITALS: BP 135/72; PULSE 102; RESP 18; TEMP 36.7; O2SAT 96; BMI 31.8
--- NOTE | 2022-05-21 15:05 | ECG_ITS ---
Test Reason : CHEST PAIN Blood Pressure : / mmHG Vent. Rate : 099 BPM Atrial Rate : 099 BPM P-R Int : 138 ms QRS Dur : 072 ms QT Int : 340 ms P-R-T Axes : 054 044 050 degrees QTc Int : 436 ms Normal sinus rhythm Normal EKG When compared with ECG of 24-JUL-2020 22:40, No significant change was found Referred By: Generic ED Physician Electronically Signed By:DOMO AL
[2022-05-21 16:39] LABS: Hematocrit 41.9 % (37.0-47.0); Hemoglobin 13.6 g/dl (12.0-16.0); Mean Corpuscular HGB Conc 32.5 g/dl (31.0-35.0); Mean Corpuscular Hemoglobin 29.6 pg (27.0-33.0); Mean Corpuscular Volume 91.1 fL (80.0-98.0); Mean Platelet Volume 10.3 fL (9.4-12.3); Platelet Count 287 X10*3/uL (160-400); Red Cell Distribution Width 13.2 % (11.0-16.0); White Blood Count 7.2 X10*3/uL (4.8-10.8)
[2022-05-21 16:54] LABS: Anion Gap 15 (12-20); Blood Urea Nitrogen 12 mg/dL (9-16); Calcium 9.4 mg/dL (8.4-10.2); Carbon Dioxide 22 mmol/L (22-29); Chloride 111 mmol/L (96-108); Creatinine Clr Calc Pharmacy 57.5; Estimated Glomerular Filt Rate 52; Glucose Random 125 mg/dL (60-115); Potassium 4.6 mmol/L (3.3-5.1); Sodium 143 mmol/L (135-145)
[2022-05-21 16:58] LABS: Troponin-I High Sensitivity < 3.5 ng/L (<3.5-17.0)
[2022-05-21 17:17] VITALS: BP 126/63; PULSE 86; TEMP 37.2; O2SAT 98
--- NOTE | 2022-05-21 17:19 | ED_ITS ---
HPI - Chest Pain General Chief Complaint: Chest Pain Stated Complaint: UPPER L CHEST BREAST AREA PAIN BODY ACHES Time Seen by Provider: 05/21/22 17:19 Source: patient Mode of arrival: ambulatory Limitations: no limitations History of Present Illness HPI narrative: Patient with no history of coronary artery disease has history of high cholesterol noticed for last 4 days sharp intermittent pain lasting for few seco nds left patient had COVID vaccine booster shot on 05/11 were read about maybe the side effect of that. No shortness of breath no chest pain today no radiation of the pain no relation of the pain to deep palpation /movements Related Data Home Medications Medication Instructions Recorded Confirmed clonazepam 1 mg tablet (Klonopin) 1 mg PO BEDTIME 01/20/21 05/07/21 atorvastatin 80 mg tablet 1 tab PO BEDTIME 05/07/21 05/07/21 benztropine 0.5 mg tablet 1 tab PO BID 05/07/21 05/07/21 cholecalciferol (vitamin D3) 50 1 cap PO DAILY 05/07/21 05/07/21 mcg (2,000 unit) capsule clonazepam 1 mg tablet 1 - 2 tab PO BEDTIME PRN anxiety 05/07/21 05/07/21 clonidine HCl 0.2 mg tablet 1 tab PO BEDTIME 05/07/21 05/07/21 doxepin 10 mg capsule 1 cap PO BEDTIME 05/07/21 05/07/21 haloperidol 5 mg tablet 5 mg PO BEDTIME 05/07/21 05/07/21 Previous Rx's Medication Instructions Recorded allopurinol 100 mg tablet 100 mg PO DAILY 90 days #90 tabs 05/14/21 pyridoxine (vitamin B6) 100 mg 100 mg PO DAILY 90 days #90 tabs 02/02/22 tablet Allergies Allergy/AdvReac Type Severity Reaction Status Date / Time No Known Allergies Allergy Verified 05/07/22 09:55 Review of Systems Review of Systems: Yes all other systems are reviewed and are negative PMFSH Past Medical History Medical History Anxiety Elevated cholesterol Occasional tremors Renal cyst Surgical History Hx of section Hx of tubal ligation Social History Social History Alcohol intake: never Patient Tobacco Use Status: Never used Tobacco Advance Directives: No Advance Directives Information Provided: No Physical Exam Vital Signs: Vital Signs: Last Vital Signs Temp 98.9 F 05/21/22 17:17 Pulse 86 05/21/22 17:17 Resp 18 05/21/22 15:03 BP 126/63 05/21/22 17:17 Pulse Ox 98 05/21/22 17:17 O2 Del Method 05/21/22 17:17 BMI result Body Mass Index 31.8 Appearance: Alert. Oriented X3. No acute distress. ENT: Pharynx normal. Oral Mucosa moist Neck: Normal inspection. Neck supple. CVS: Normal heart rate and rhythm. Pulses normal. Respiratory: No respiratory distress. Equal air entry bilateral, no wheezing/rales/rhonchi Abdomen: Soft and nontender. Bowel sounds are present, no mass palpable, no CVA tenderness Skin: Skin warm and dry. Normal skin color. Normal skin turgor. Extremities: No lower extremity edema. No calf tenderness Neuro: Oriented X 3. No motor deficit. MDM - Chest Pain MDM Narrative Medical decision making narrative: Patient with atypical chest pain for more than 24 hours off and on high sensitive troponin negative heart score of 2, EKG without any ischemic changes currently patient does not have any chest pain will discharge patient home advised to follow with PCP Lab Data Attestation: I reviewed the patient's lab results. Result diagrams: 05/21/22 16:06 05/21/22 16:06 Labs: Lab Results 05/21/22 05/21/22 05/21/22 Range/Units 16:06 16:06 16:06 WBC 7.2 (4.8-10.8) X10*3/uL RBC 4.60 (4.20-5.50) X10*6/uL Hgb 13.6 (12.0-16.0) g/dl Hct 41.9 (37.0-47.0) % MCV 91.1 (80.0-98.0) fL MCH 29.6 (27.0-33.0) pg MCHC 32.5 (31.0-35.0) g/dl RDW 13.2 (11.0-16.0) % Plt Count 287 D (160-400) X10*3/uL MPV 10.3 (9.4-12.3) fL Absolute Nucleated RBC 0.000 (0.0-0.012) X10*3/uL Nucleated RBC % (auto) 0.0 (0.0-0.2) /100WBC Sodium 143 (135-145) mmol/L Potassium 4.6 (3.3-5.1) mmol/L Chloride 111 H (96-108) mmol/L Carbon Dioxide 22 (22-29) mmol/L Anion Gap 15 (12-20) BUN 12 (9-16) mg/dL Creatinine 1.09 (0.5-1.4) mg/dL Estim Creat Clear Calc 57.5 Estimated GFR 52 Random Glucose 125 H (60-115) mg/dL Calcium 9.4 (8.4-10.2) mg/dL Troponin I High Sens < 3.5 (<3.5-17.0) ng/L ECG Data ECG #1: Attestation: I personally reviewed and interpreted this ECG as follows: Interpretation: Normal sinus rhythm heart rate 99 beats per minute normal interval normal axis no acute ischemic changes Scores Heart Score History: -0- slightly suspicious ECG: -0- normal Age: -1- >45 - <65 Risk factory: -1- 1 or 2 risk factors Troponin: -0- < or = normal limit Score: 2 Risk: 1.7% Discharge Plan Discharge Clinical Impression: Atypical chest pain Patient Disposition: Home, Self-Care Instructions: Chest Pain (ED) Additional Instructions: follow up with your pcp Your chest pain does not seems like coming from the heart likely musculoskeletal hawa un seguimiento con carlson pcp Carlson dolor de pecho no parece provenir del coraz?n, probablemente musc uloesquel?valerie Prescriptions: No Action pyridoxine (vitamin B6) 100 mg tablet 100 mg PO DAILY 90 Days Qty: 90 1RF atorvastatin 80 mg tablet 1 tab PO BEDTIME benztropine 0.5 mg tablet 1 tab PO BID haloperidol 5 mg tablet 5 mg PO BEDTIME clonazepam 1 mg tablet 1 - 2 tab PO BEDTIME PRN (Reason: anxiety) doxepin 10 mg capsule 1 cap PO BEDTIME clonidine HCl 0.2 mg tablet 1 tab PO BEDTIME cholecalciferol (vitamin D3) 50 mcg (2,000 unit) capsule 1 cap PO DAILY allopurinol 100 mg tablet 100 mg PO DAILY 90 Days Qty: 90 1RF clonazepam [Klonopin] 1 mg tablet 1 mg PO BEDTIME Rx Instructions: administer 30 minutes before bedtime Interventions: ED Discharge Assessment Last Done: 05/21/22 17:51 Discharge Date/Time: 05/21/22 17:51 Print Language: [place]ian
== END 2022-05-21 17:51 | disposition home or self-care (01) ==
PROVIDERS: Emergency Provider Internal Medicine; PCP Family Medicine
DX: R07.89 Other chest pain (principal); E78.5 Hyperlipidemia, unspecified; Z79.02 Long term (current) use of antithrombotics/antiplatelets
CPT/HCPCS: 36415; 80048; 84484; 85027; 93005; 99283; 99284

== ENCOUNTER 2022-05-26 15:52 | Outpatient (REF) | payer MEDICAID, SELFPAY | END 2022-05-26 15:53 | disposition home or self-care (01) | LOC: HO.US 15:52 | DX: Z13.89 Encounter for screening for other disorder (principal) ==

== ENCOUNTER 2022-06-04 16:15 | Emergency (ER) | payer MEDICAID, SELFPAY ==
--- NOTE | ~2022-06-04 | XR_ITS ---
EXAMINATION: XR CHEST CLINICAL INFORMATION: Left breast pain COMPARISON: 07/24/2020 TECHNIQUE: Frontal view of the chest was obtained. FINDINGS: The lungs are clear with no focal consolidation. No evidence of pneumothorax, pulmonary edema, or pleural effusions. The cardiomediastinal silhouette is unremarkable. No acute osseous findings. XR/XR chest 1V IMPRESSION: No acute cardiopulmonary findings.
[2022-06-04 16:43] VITALS: BP 139/86; PULSE 96; RESP 16; TEMP 36.9; O2SAT 97; BMI 32.4
--- NOTE | 2022-06-04 23:46 | ECG_ITS ---
Test Reason : CHEST PAIN Blood Pressure : / mmHG Vent. Rate : 088 BPM Atrial Rate : 088 BPM P-R Int : 140 ms QRS Dur : 074 ms QT Int : 380 ms P-R-T Axes : 044 009 043 degrees QTc Int : 459 ms Normal sinus rhythm Normal ECG When compared with ECG of 21-MAY-2022 15:02, No significant change was found Referred By: Mar Tinsley Electronically Signed By:LEIGH OTRIZ
[2022-06-05] VITALS: BP 137/83; PULSE 75; RESP 24; O2SAT 98
--- NOTE | 2022-06-05 00:16 | ED.GENADULT ---
HPI - General Adult General Chief complaint: General Medical Stated complaint: left breast pain Time Seen by Provider: 06/04/22 23:45 Source: patient Mode of arrival: ambulatory Limitations: no limitations History of Present Illness HPI narrative: This is a 57-year-old female past medical history significant for kidney stones, high cholesterol presenting to the emergency department with complaints of intermittent left-sided breast pain that radiates into the left shoulder and into her back. Patient tells me that she is having a sharp pains that are intermittent and severe in nature, she tells me she is not having pain at this time however was having at earlier today. She tells me that this all started on May 11 after receiving her COVID vaccine. She makes it very clear that this is not chest pain. She tells me that this pain is not reproducible, unable to tell me what makes this pain better or worse. Patient had a mammogram about a year ago which was normal. She tells me she was seen for this here in the emergency department before and they were able to tell her what was wrong with her. She denies any personal or significant family cardiac history. No history of PE or DVT. Denies fevers, chills, chest pain, shortness of breath, headache, dizziness, numbness, tingling, nausea, vomiting, abdominal pain. Related Data Home Medications Medication Instructions Recorded Confirmed clonazepam 1 mg tablet (Klonopin) 1 mg PO BEDTIME 01/20/21 05/07/21 atorvastatin 80 mg tablet 1 tab PO BEDTIME 05/07/21 05/07/21 benztropine 0.5 mg tablet 1 tab PO BID 05/07/21 05/07/21 cholecalciferol (vitamin D3) 50 1 cap PO DAILY 05/07/21 05/07/21 mcg (2,000 unit) capsule clonazepam 1 mg tablet 1 - 2 tab PO BEDTIME PRN anxiety 05/07/21 05/07/21 clonidine HCl 0.2 mg tablet 1 tab PO BEDTIME 05/07/21 05/07/21 doxepin 10 mg capsule 1 cap PO BEDTIME 05/07/21 05/07/21 haloperidol 5 mg tablet 5 mg PO BEDTIME 05/07/21 05/07/21 Previous Rx's Medication Instructions Recorded allopurinol 100 mg tablet 100 mg PO DAILY 90 days #90 tabs 05/14/21 pyridoxine (vitamin B6) 100 mg 100 mg PO DAILY 90 days #90 tabs 02/02/22 tablet Allergies Allergy/AdvReac Type Severity Reaction Status Date / Time No Known Allergies Allergy Verified 05/07/22 09:55 Review of Systems Review of Systems: Constitutional : No Weight loss, No Fever, No Chills, No Fatigue, No Malaise ENT/Mouth : No sore throat, No Rhinorrhea Eyes: No Eye Pain, No Swelling, No Redness Cardiovascular : No Chest Pain, No SOB, No Dyspnea on Exertion, No Orthopnea, No Edema, No Palpitations Respiratory : No Cough, No Sputum, No Wheezing Gastrointestinal : No Nausea, No Vomiting, No Diarrhea, No Constipation, No abdominal Pain, No Hematochezia, No Melena Genitourinary : No Dysuria, No Urinary Frequency, No Hematuria, Musculoskeletal : No joint pain, No Myalgias, No Joint Swelling, + left breast pain Skin : No Skin Lesions, No rash Neuro : No Weakness, No Numbness, No Dizziness, No Headache All other systems reviewed and are negative Yes all other systems are reviewed and are negative [facility] Past Medical History Attestation statement: The following information was validated with the patient. Source: old records reviewed and nursing notes reviewed Medical History Anxiety Elevated cholesterol Occasional tremors Renal cyst Surgical History Hx of section Hx of tubal ligation Social History Social History Alcohol intake: never Patient Tobacco Use Status: Never used Tobacco Advance Directives: No Advance Directives Information Provided: No Physical Exam ED Vital Signs: Vital Signs - 24 hr 06/04/22 16:43 06/05/22 00:00 Temperature 98.5 F Pulse Rate 96 75 Respiratory Rate 16 24 H Blood Pressure 139/86 137/83 Pulse Oximetry 97 98 Oxygen Delivery Method Room Air Room Air BMI result Body Mass Index 32.4 Vital signs stable Appearance: Alert.? Oriented X3.? No acute distress.? Head: Normocephalic, atraumatic, no step-offs or deformities Eyes: Pupils equal, round and reactive to light.? ENT: Pharynx normal.? Neck: Normal inspection.? Neck supple.? CVS: Normal heart rate and rhythm.? Pulses normal.? Respiratory: No respiratory distress.? Breath sounds normal.? Abdomen: Soft and nontender.? Skin: Skin warm and dry.? Normal skin color.? Normal skin turgor.? Extremities: No lower extremity edema.? No calf ttp, negative Ronal bilaterally. 5/5 strength to bilateral upper and lower extremities Breast exam: Patient has dense breast tissue bilaterally, no lumps or masses noted within breast tissue, no nipple discharge, no palpable breast or axillary lymphadenopathy bilaterally. Normal-appearing breast. Nontender to palpation. Neuro: Oriented X 3.? No motor deficit.? No sensory deficit. CN 2-12 intact Course Reevaluation(s) Reevaluation #1: CBC within normal limits. Chemistry with no acute electrolyte abnormalities requiring intervention. High sensitivity troponin negative, EKG nonischemic unlikely ACS. Time: 00:51 Reevaluation #2: I advised patient to follow-up with her PCP, she should have further imaging done of the breast if this pain continues. I explained to patient that there could be some lymphadenopathy status post COVID vaccine. I am unable to palpate any lumps or masses, no need for emergent ultrasound or mammogram. 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 Educated to return with any new or worsening symptoms, outlined he is on her discharge. At this time I feel comfortable discharge Time: 00:55 Medical Decision Making [facility] Narrative Medical decision making narrative: [id number] 57-year-old female presents with a left-sided breast pain that radiates into her left shoulder and into her back, intermittent in nature, currently not complaining of pain tells me she had earlier today. Tells me this all started after receiving her COVID booster shot on 05/11/2022. No significant cardiac history. Physical examination benign. Normal breast exam. Heart score of 2, unlikely ACS. I do not suspect PE on this patient, patient saturating well on room air, not tachycardic, not complaining of chest pain or shortness of breath. Low suspicion for malignancy, unlikely breast cellulitis. History and physical examination not consistent with dissection. Plan at this time is basic labs, EKG, troponin. Medical Records Medical records reviewed: Yes I reviewed the patient's medical records. Lab Data Lab results reviewed: Yes I reviewed the patient's lab results. Result diagrams: 06/05/22 00:13 06/05/22 00:13 Labs: Lab Results 06/05/22 06/05/22 06/05/22 Range/Units 00:06 00:06 00:13 WBC 7.8 (4.8-10.8) X10*3/uL RBC 4.52 (4.20-5.50) X10*6/uL Hgb 13.4 (12.0-16.0) g/dl Hct 40.5 (37.0-47.0) % MCV 89.6 (80.0-98.0) fL MCH 29.6 (27.0-33.0) pg MCHC 33.1 (31.0-35.0) g/dl RDW 13.2 (11.0-16.0) % Plt Count 260 (160-400) X10*3/uL MPV 10.3 (9.4-12.3) fL Immature Gran % (Auto) 0.1 (0.0-0.4) % Neut % (Auto) 48.1 (45-73) % Lymph % (Auto) 41.7 H (20-40) % [place] % (Auto) 8.1 (2-11) % Eos % (Auto) 1.5 (0-4) % Baso % (Auto) 0.5 (0-2) % Lymph # (Auto) 3.3 (1.2-4.9) X10*3/uL [place] # (Auto) 0.6 (0.1-1.2) X10*3/uL Eos # (Auto) 0.1 (0.0-0.4) X10*3/uL Baso # (Auto) 0.0 (0.0-0.2) X10*3/uL Abs Immat Gran (auto) 0.01 (0.00-0.03) X10*3/uL Absolute Neuts (auto) 3.8 (2.0-8.3) x10*3/uL Absolute Nucleated RBC 0.000 (0.0-0.012) X10*3/uL Nucleated RBC % (auto) 0.0 (0.0-0.2) /100WBC Sodium (135-145) mmol/L Potassium (3.3-5.1) mmol/L Chloride (96-108) mmol/L Carbon Dioxide (22-29) mmol/L Anion Gap (12-20) BUN (9-16) mg/dL Creatinine (0.5-1.4) mg/dL Estim Creat Clear Calc Estimated GFR Random Glucose (60-115) mg/dL Calcium (8.4-10.2) mg/dL Magnesium (1.6-2.6) mg/dL Total Bilirubin (0.0-1.0) mg/dL AST (5-31) U/L ALT (0-31) U/L Alkaline Phosphatase (39-117) U/L Troponin I High Sens (<3.5-17.0) ng/L Total Protein (6.5-8.0) g/dL Albumin (3.5-5.0) g/dL Urine Color Yellow Urine Appearance Cloudy Urine pH 6.5 (5.0-8.0) Ur Specific [place] 1.015 (1.005-1.025) Urine Protein Negative (Neg-Trace) mg/dL Urine Glucose (UA) Negative (Negative) mg/dL Urine Ketones Negative (Negative) mg/dL Urine Blood Negative (Negative) Urine Nitrite Negative (Negative) Ur Leukocyte Esterase Large (3+) H (Negative) Urine RBC 0-2 (0-2) /HPF Urine WBC 21-50 H (0-5) /HPF Ur Squamous Epith Cells >20 (0-2) /HPF Urine Bacteria 4+ (None Seen) Hyaline Casts 0-2 (0-2) /LPF COVID-19 (AMBREEN) Negative (Negative) COVID-19 Clin Com See Note 06/05/22 06/05/22 Range/Units 00:13 00:13 WBC (4.8-10.8) X10*3/uL RBC (4.20-5.50) X10*6/uL Hgb (12.0-16.0) g/dl Hct (37.0-47.0) % MCV (80.0-98.0) fL MCH (27.0-33.0) pg MCHC (31.0-35.0) g/dl RDW (11.0-16.0) % Plt Count (160-400) X10*3/uL MPV (9.4-12.3) fL Immature Gran % (Auto) (0.0-0.4) % Neut % (Auto) (45-73) % Lymph % (Auto) (20-40) % [place] % (Auto) (2-11) % Eos % (Auto) (0-4) % Baso % (Auto) (0-2) % Lymph # (Auto) (1.2-4.9) X10*3/uL [place] # (Auto) (0.1-1.2) X10*3/uL Eos # (Auto) (0.0-0.4) X10*3/uL Baso # (Auto) (0.0-0.2) X10*3/uL Abs Immat Gran (auto) (0.00-0.03) X10*3/uL Absolute Neuts (auto) (2.0-8.3) x10*3/uL Absolute Nucleated RBC (0.0-0.012) X10*3/uL Nucleated RBC % (auto) (0.0-0.2) /100WBC Sodium 143 (135-145) mmol/L Potassium 4.3 (3.3-5.1) mmol/L Chloride 108 (96-108) mmol/L Carbon Dioxide 23 (22-29) mmol/L Anion Gap 16 (12-20) BUN 10 (9-16) mg/dL Creatinine 1.07 (0.5-1.4) mg/dL Estim Creat Clear Calc 59.2 Estimated GFR 53 Random Glucose 110 (60-115) mg/dL Calcium 9.7 (8.4-10.2) mg/dL Magnesium 2.0 (1.6-2.6) mg/dL Total Bilirubin 0.4 (0.0-1.0) mg/dL AST 31 D (5-31) U/L ALT 36 H (0-31) U/L Alkaline Phosphatase 75 D (39-117) U/L Troponin I High Sens < 3.5 (<3.5-17.0) ng/L Total Protein 6.9 (6.5-8.0) g/dL Albumin 4.5 (3.5-5.0) g/dL Urine Color Urine Appearance Urine pH (5.0-8.0) Ur Specific [place] (1.005-1.025) Urine Protein (Neg-Trace) mg/dL Urine Glucose (UA) (Negative) mg/dL Urine Ketones (Negative) mg/dL Urine Blood (Negative) Urine Nitrite (Negative) Ur Leukocyte Esterase (Negative) Urine RBC (0-2) /HPF Urine WBC (0-5) /HPF Ur Squamous Epith Cells (0-2) /HPF Urine Bacteria (None Seen) Hyaline Casts (0-2) /LPF COVID-19 (AMBREEN) (Negative) COVID-19 Clin Com ECG Data Attestation: I personally reviewed and interpreted this ECG as follows: Prior ECG tracings: available for review Interpretation: Ventricular rate of 88, [place] normal, QRS normal, QT/QTC normal. EKG with normal sinus rhythm no ST elevations or inversions concerning for ischemia. No significant changes when compared to EKG of May 2022. Critical Care Time Critical Care Time Critical Care Time: No Discharge Plan Discharge Clinical Impression: Breast pain, left Patient Disposition: Home, Self-Care Additional Instructions: Take your medications as prescribed. If you were prescribed antibiotics today, it is important that you take your medication to their entirety, do not skip any doses, do not finish them early. Follow-up with your primary care provider this week. Please follow-up with OBGYN or your PCP, he will likely require an ultrasound or mammogram if symptoms continue. Return to the emergency department with new or worsening symptoms. Such as fevers, chills, chest pain, shortness of breath, nausea, vomiting, dizziness, headache, vision changes, lethargy In case of emergency call 911 Your laboratory studies, EKG, cardiac enzymes were all within normal limits. I was unable to palpate any lumps or masses upon breast examination. Prescriptions: No Action pyridoxine (vitamin B6) 100 mg tablet 100 mg PO DAILY 90 Days Qty: 90 1RF atorvastatin 80 mg tablet 1 tab PO BEDTIME benztropine 0.5 mg tablet 1 tab PO BID haloperidol 5 mg tablet 5 mg PO BEDTIME clonazepam 1 mg tablet 1 - 2 tab PO BEDTIME PRN (Reason: anxiety) doxepin 10 mg capsule 1 cap PO BEDTIME clonidine HCl 0.2 mg tablet 1 tab PO BEDTIME cholecalciferol (vitamin D3) 50 mcg (2,000 unit) capsule 1 cap PO DAILY allopurinol 100 mg tablet 100 mg PO DAILY 90 Days Qty: 90 1RF clonazepam [Klonopin] 1 mg tablet 1 mg PO BEDTIME Rx Instructions: administer 30 minutes before bedtime Referrals: PhysicianValerio [Primary Care Provider] - 2 days Js Camacho MD [Physician] - 2 weeks Stand Alone Forms: Work/School Release
[2022-06-05 00:18] LABS: MANUAL DIFF FLAG NO
[2022-06-05 00:21] LABS: Basophils Percent Auto 0.5 % (0-2); Eosinophils Absolute Auto 0.1 X10*3/uL (0.0-0.4); Eosinophils Percent Auto 1.5 % (0-4); Hematocrit 40.5 % (37.0-47.0); Hemoglobin 13.4 g/dl (12.0-16.0); Imm Gran Abs Auto 0.01 X10*3/uL (0.00-0.03); Imm Gran Pct Auto 0.1 % (0.0-0.4); Lymphocytes Absolute Auto 3.3 X10*3/uL (1.2-4.9); Lymphocytes Percent Auto 41.7 % (20-40); Mean Corpuscular HGB Conc 33.1 g/dl (31.0-35.0); Mean Corpuscular Hemoglobin 29.6 pg (27.0-33.0); Mean Corpuscular Volume 89.6 fL (80.0-98.0); Mean Platelet Volume 10.3 fL (9.4-12.3); Monocytes Absolute Auto 0.6 X10*3/uL (0.1-1.2); Monocytes Percent Auto 8.1 % (2-11); Neutrophils Absolute Auto 3.8 x10*3/uL (2.0-8.3); Neutrophils Percent Auto 48.1 % (45-73); Platelet Count 260 X10*3/uL (160-400); Red Blood Count 4.52 X10*6/uL (4.20-5.50); Red Cell Distribution Width 13.2 % (11.0-16.0); White Blood Count 7.8 X10*3/uL (4.8-10.8)
[2022-06-05 00:22] LABS: Appearance Urine Cloudy; Color Urine Yellow; Glucose Urine UA Negative (Negative); Leukocyte Esterase Urine Large (3+) (Negative); Nitrite Urine Negative (Negative); PH 6.5 (5.0-8.0); Specific Gravity - Urine 1.015 (1.005-1.025); Urine Blood Negative (Negative); Urine Ketones Negative (Negative); Urine Protein Negative (Neg-Trace)
[2022-06-05 00:31] LABS: Bacteria Urine 4+ (None Seen); Hyaline Casts Urine 0-2 /LPF (0-2); RBC Urine 0-2 /HPF (0-2); Squamous Epithelial Cell Urine >20 /HPF (0-2); UACC Culture Trigger YES; WBC Urine 21-50 /HPF (0-5)
[2022-06-05 00:36] LABS: COVID-19 Test Negative (Negative)
[2022-06-05 00:41] LABS: Alanine Aminotransferase 36 U/L (0-31); Albumin Level 4.5 g/dL (3.5-5.0); Alkaline Phosphatase 75 U/L (39-117); Anion Gap 16 (12-20); Aspartate Amino Transferase 31 U/L (5-31); Bilirubin Total 0.4 mg/dL (0.0-1.0); Blood Urea Nitrogen 10 mg/dL (9-16); Calcium 9.7 mg/dL (8.4-10.2); Carbon Dioxide 23 mmol/L (22-29); Chloride 108 mmol/L (96-108); Creatinine Clr Calc Pharmacy 59.2; Estimated Glomerular Filt Rate 53; Glucose Random 110 mg/dL (60-115); Potassium 4.3 mmol/L (3.3-5.1); Sodium 143 mmol/L (135-145); Total Protein 6.9 g/dL (6.5-8.0)
[2022-06-05 00:47] LABS: Troponin-I High Sensitivity < 3.5 ng/L (<3.5-17.0)
== END 2022-06-05 01:08 | disposition home or self-care (01) ==
PROVIDERS: Physician Assistant; Emergency Provider Emergency Medicine
DX: N64.4 Mastodynia (principal); R92.2 Inconclusive mammogram; Z20.822 Contact with and (suspected) exposure to COVID-19
CPT/HCPCS: 36415; 71045; 80053; 81001; 83735; 84484; 85025; 87086; 87635; 93005; 99283; 99284

== ENCOUNTER 2022-07-25 09:09 | Emergency (ER) | payer MEDICAID, SELFPAY ==
--- NOTE | ~2022-07-25 | XR_ITS ---
EXAMINATION: XR chest 1V CLINICAL INFORMATION: Reason for Exam RAPID HEART RATE/CHEST TIGHTNESS COMPARISON: Chest radiograph 06/05/2022 TECHNIQUE: One view of the chest FINDINGS: Clear lungs. No pneumothorax or pleural effusion. Normal cardiomediastinal silhouette. High density material overlying the mid upper abdomen of uncertain etiology, unclear if this is internal or external to the patient, not present on priors. XR/XR chest 1V Impression: * Clear lungs. * High density material overlying the mid upper abdomen of uncertain etiology, unclear if this is internal or external to the patient, not present on priors.
--- NOTE | 2022-07-25 09:31 | ECG_ITS ---
Test Reason : RAPID HEART RATE Blood Pressure : / mmHG Vent. Rate : 113 BPM Atrial Rate : 113 BPM P-R Int : 136 ms QRS Dur : 070 ms QT Int : 318 ms P-R-T Axes : 059 049 071 degrees QTc Int : 436 ms Sinus tachycardia Nonspecific T wave abnormality Abnormal ECG When compared with ECG of 04-JUN-2022 23:46, T wave amplitude has decreased in Inferior leads Lateral leads Referred By: Generic ED Physician Electronically Signed By:MANNY MILNER MD
[2022-07-25 09:32] VITALS: BP 127/84; PULSE 118; RESP 18; TEMP 36.1; O2SAT 96; BMI 31.8
[2022-07-25 09:56] LABS: MANUAL DIFF FLAG NO
[2022-07-25 09:57] LABS: Basophils Absolute Auto 0.1 X10*3/uL (0.0-0.2); Basophils Percent Auto 0.8 % (0-2); Eosinophils Absolute Auto 0.1 X10*3/uL (0.0-0.4); Eosinophils Percent Auto 1.7 % (0-4); Hematocrit 41.9 % (37.0-47.0); Imm Gran Abs Auto 0.03 X10*3/uL (0.00-0.03); Imm Gran Pct Auto 0.4 % (0.0-0.4); Lymphocytes Absolute Auto 1.5 X10*3/uL (1.2-4.9); Lymphocytes Percent Auto 21.6 % (20-40); Mean Corpuscular HGB Conc 33.4 g/dl (31.0-35.0); Mean Corpuscular Hemoglobin 29.6 pg (27.0-33.0); Mean Corpuscular Volume 88.6 fL (80.0-98.0); Mean Platelet Volume 10.1 fL (9.4-12.3); Monocytes Absolute Auto 0.4 X10*3/uL (0.1-1.2); Neutrophils Percent Auto 69.5 % (45-73); Platelet Count 212 X10*3/uL (160-400); Red Blood Count 4.73 X10*6/uL (4.20-5.50); Red Cell Distribution Width 12.6 % (11.0-16.0); White Blood Count 7.1 X10*3/uL (4.8-10.8)
[2022-07-25 10:11] LABS: Anion Gap 15 (12-20); Blood Urea Nitrogen 11 mg/dL (9-16); Calcium 9.5 mg/dL (8.4-10.2); Carbon Dioxide 23 mmol/L (22-29); Chloride 108 mmol/L (96-108); Creatinine Clr Calc Pharmacy 58.7; Estimated Glomerular Filt Rate 53; Glucose Random 122 mg/dL (60-115); Potassium 4.2 mmol/L (3.3-5.1); Sodium 142 mmol/L (135-145)
[2022-07-25 10:19] LABS: Troponin-I High Sensitivity < 3.5 ng/L (<3.5-17.0)
[2022-07-25 10:21] VITALS: BP 135/90; PULSE 109; RESP 16; TEMP 37.1; O2SAT 95
--- NOTE | 2022-07-25 11:22 | PC.NURSE ---
pt refusing to change into a hospital gown. no IV per attending
--- NOTE | 2022-07-25 11:49 | ED_ITS ---
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 No recent travel, no lower extremity swelling or tenderness, no history of blood clots. Related Data Home Medications Medication Instructions Recorded Confirmed clonazepam 1 mg tablet (Klonopin) 1 mg PO BEDTIME 01/20/21 06/11/22 atorvastatin 80 mg tablet 1 tab PO BEDTIME 05/07/21 06/11/22 benztropine 0.5 mg tablet 1 tab PO BID 05/07/21 06/11/22 cholecalciferol (vitamin D3) 50 1 cap PO DAILY 05/07/21 06/11/22 mcg (2,000 unit) capsule clonazepam 1 mg tablet 1 - 2 tab PO BEDTIME PRN anxiety 05/07/21 06/11/22 clonidine HCl 0.2 mg tablet 1 tab PO BEDTIME 05/07/21 06/11/22 doxepin 10 mg capsule 1 cap PO BEDTIME 05/07/21 06/11/22 haloperidol 5 mg tablet 5 mg PO BEDTIME 05/07/21 06/11/22 doxepin 50 mg capsule 50 mg PO BEDTIME 06/11/22 06/11/22 Previous Rx's Medication Instructions Recorded pyridoxine (vitamin B6) 100 mg 100 mg PO DAILY 90 days #90 tabs 06/11/22 tablet Allergies Allergy/AdvReac Type Severity Reaction Status Date / Time No Known Allergies Allergy Verified 06/11/22 08:51 Review of Systems Review of Systems: All other systems are reviewed and are negative Constitutional: Reports as per HPI and Reports no additional constitutional complaints Eyes: Reports as per HPI and Reports no additional eye complaints Reports system reviewed and no additional complaints, except as documented Cardiovascular: Reports as per HPI and Reports no additional cardiovascular complaints Respiratory: Reports as per HPI and Reports no additional respiratory complaints Gastrointestinal: Reports as per HPI and Reports no additional gastrointestinal complaints Genitourinary: Reports no additional female genitourinary complaints Musculoskeletal: Reports no additional musculoskeletal complaints Skin/Breast: Reports system reviewed and no additional complaints, except as docu Psychiatric: Reports no additional psychiatric complaints Endocrine: Reports no additional endocrine complaints Hematologic/Lymphatic: Reports no additional hematologic/lymphatic complaints Allergic/Immunologic: Reports no additional allergic/immunologic complaints Reports system reviewed and no additional complaints, except as documented and Reports Abnormal speech present [facility] Past Medical History Medical History Anxiety Elevated cholesterol Occasional tremors Renal cyst Surgical History Hx of section Hx of tubal ligation Social History Social History Alcohol intake: never Patient Tobacco Use Status: Never used Tobacco Use of substances other than those prescribed or required for medical reasons: No Advance Directives: No Advance Directives Information Provided: No Physical Exam ED Vital Signs: Vital Signs - 24 hr 07/25/22 09:32 07/25/22 10:21 Temperature 97.0 F 98.8 F Pulse Rate 118 H 109 H Respiratory Rate 18 16 Blood Pressure 127/84 135/90 H Pulse Oximetry 96 95 Oxygen Delivery Method Room Air BMI result Body Mass Index 31.8 Vital signs have been reviewed as appeared to be correct. Blood pressure normal. Heart rate elevated. Respiration rate normal. Temperature normal. O xygen saturation normal. Appearance: Anxious, Alert. Oriented X3. No acute distress. Head: Normal external exam. Normocephalic. Atraumatic. No Roland signs noted. No raccoon eyes noted Eyes: PERRLA. EOMI. Conjunctiva and sclera normal. Eyelids normal. ENT: TM's Normal. Pharynx normal. Uvula midline. Moist mucous membranes. No trismus noted. No drooling noted. No muffled voice noted. Neck: Normal inspection. Neck supple. FROM. No adenopathy. Thyroid Normal. No m eningeal signs. No neck mass noted. CVS: Normal heart rate and rhythm. Heart sound normal. No murmurs noted. Pulses normal throughout. Respiratory: No respiratory distress. Painless inspiration. Breath sounds normal. No wheezes/rales/rhonchi noted. Chest nontender. No accessory muscle usage noted or decreased air movement noted. Abdomen: Soft and nontender. Bowel sounds normal in all 4 quadrants. No distention noted. No organomegaly noted. No visible injury noted. Back: No CVA tenderness. Full range of motion noted. Skin: Skin warm and dry. Normal skin color. Normal skin turgor. No r ashes/lesions/lacerations noted. Extremities: No lower extremity edema. Extremities exhibit normal range of motion. Extremities nontender. Neuro: Oriented X 3. Cranial nerve exam: II-XII are grossly intact No motor deficit. No sensory deficit. Reflexes normal. Course Course Course Narrative: 57-year-old female came in with chest pain since yesterday pain has been constant, seems to be as a result of anxiety, EKG and troponin value ruling out ACS, tachycardia felt to be secondary to anxiety. Medical Decision Making Lab Data Lab results reviewed: Yes I reviewed the patient's lab results. Result diagrams: 07/25/22 09:52 07/25/22 09:52 Labs: Lab Results 07/25/22 07/25/22 07/25/22 Range/Units 09:52 09:52 09:52 WBC 7.1 (4.8-10.8) X10*3/uL RBC 4.73 (4.20-5.50) X10*6/uL Hgb 14.0 (12.0-16.0) g/dl Hct 41.9 (37.0-47.0) % MCV 88.6 (80.0-98.0) fL MCH 29.6 (27.0-33.0) pg MCHC 33.4 (31.0-35.0) g/dl RDW 12.6 (11.0-16.0) % Plt Count 212 (160-400) X10*3/uL MPV 10.1 (9.4-12.3) fL Immature Gran % (Auto) 0.4 (0.0-0.4) % Neut % (Auto) 69.5 (45-73) % Lymph % (Auto) 21.6 (20-40) % [place] % (Auto) 6.0 (2-11) % Eos % (Auto) 1.7 (0-4) % Baso % (Auto) 0.8 (0-2) % Lymph # (Auto) 1.5 (1.2-4.9) X10*3/uL [place] # (Auto) 0.4 (0.1-1.2) X10*3/uL Eos # (Auto) 0.1 (0.0-0.4) X10*3/uL Baso # (Auto) 0.1 (0.0-0.2) X10*3/uL Abs Immat Gran (auto) 0.03 (0.00-0.03) X10*3/uL Absolute Neuts (auto) 5.0 (2.0-8.3) x10*3/uL Absolute Nucleated RBC 0.000 (0.0-0.012) X10*3/uL Nucleated RBC % (auto) 0.0 (0.0-0.2) /100WBC Sodium 142 (135-145) mmol/L Potassium 4.2 (3.3-5.1) mmol/L Chloride 108 (96-108) mmol/L Carbon Dioxide 23 (22-29) mmol/L Anion Gap 15 (12-20) BUN 11 (9-16) mg/dL Creatinine 1.07 (0.5-1.4) mg/dL Estim Creat Clear Calc 58.7 Estimated GFR 53 Random Glucose 122 H (60-115) mg/dL Calcium 9.5 (8.4-10.2) mg/dL Troponin I High Sens < 3.5 (<3.5-17.0) ng/L Imaging Data Chest x-ray: Attestation: I personally reviewed and interpreted this imaging study as f ollows: Radiologist's impression: No acute pathology. ECG Data Attestation: I personally reviewed and interpreted this ECG as follows: Interpretation: Normal sinus rhythm at 113 beats per minute, normal axis deviation, normal intervals, no ST-T changes. Discharge Plan Discharge Clinical Impression: Anxiety, Chest pain Patient Disposition: Home, Self-Care Instructions: Anxiety (ED), Chest Pain (ED) Prescriptions: No Action atorvastatin 80 mg tablet 1 tab PO BEDTIME benztropine 0.5 mg tablet 1 tab PO BID haloperidol 5 mg tablet 5 mg PO BEDTIME clonazepam 1 mg tablet 1 - 2 tab PO BEDTIME PRN (Reason: anxiety) doxepin 10 mg capsule 1 cap PO BEDTIME clonidine HCl 0.2 mg tablet 1 tab PO BEDTIME cholecalciferol (vitamin D3) 50 mcg (2,000 unit) capsule 1 cap PO DAILY clonazepam [Klonopin] 1 mg tablet 1 mg PO BEDTIME Rx Instructions: administer 30 minutes before bedtime doxepin 50 mg capsule 50 mg PO BEDTIME pyridoxine (vitamin B6) 100 mg tablet 100 mg PO DAILY 90 Days Qty: 90 3RF Referrals: Physician,Unknown J [Primary Care Provider] -
--- NOTE | 2022-07-25 12:00 | ECG_ITS ---
Test Reason : PALPITATIONS Blood Pressure : / mmHG Vent. Rate : 102 BPM Atrial Rate : 102 BPM P-R Int : 148 ms QRS Dur : 078 ms QT Int : 344 ms P-R-T Axes : 060 023 034 degrees QTc Int : 448 ms Sinus tachycardia Low voltage QRS Borderline ECG When compared with ECG of 25-JUL-2022 09:43, Nonspecific T wave abnormality no longer evident in Lateral leads Referred By: Bhavana Amato Electronically Signed By:MANNY MILNER MD
--- NOTE | 2022-07-25 12:36 | PC.NURSE ---
Pt ringing call delacruz, asking to leave. Provider aware.
== END 2022-07-25 13:37 | disposition home or self-care (01) ==
PROVIDERS: Emergency Provider Emergency Medicine
DX: F41.9 Anxiety disorder, unspecified (principal); R07.9 Chest pain, unspecified; E78.00 Pure hypercholesterolemia, unspecified; Z79.02 Long term (current) use of antithrombotics/antiplatelets; Z79.899 Other long term (current) drug therapy
CPT/HCPCS: 36415; 71045; 80048; 84484; 85025; 93005; 99283; 99284

== ENCOUNTER 2022-08-15 09:44 | Emergency (ER) | payer MEDICAID, SELFPAY ==
[2022-08-15 10:35] VITALS: BP 119/64; PULSE 88; RESP 18; TEMP 35.8; O2SAT 97; BMI 29.4
[2022-08-15 13:56] VITALS: BP 121/73; PULSE 80; RESP 18; TEMP 36.7; O2SAT 100
== END 2022-08-15 19:59 | disposition left against medical advice (07) ==
PROVIDERS: Emergency Provider Emergency Medicine
DX: R51.9 Headache, unspecified (principal)
CPT/HCPCS: 99281

== ENCOUNTER 2022-11-16 09:59 | Outpatient (REF) | payer MEDICAID, SELFPAY ==
--- NOTE | ~2022-11-16 | XR_ITS ---
EXAMINATION: XR KNEE, BILATERAL CLINICAL INFORMATION: Bilateral knee pain. COMPARISON: None. TECHNIQUE: 4 views each knee. FINDINGS: Left Knee: There is mild loss of medial and patellar femoral compartment joint space without bony erosive changes, loose bodies. Minimal superior patellar spurring is noted. No abnormal joint effusion seen. Right Knee: There is mild loss of medial and patellofemoral compartment joint space with periarticular spurring. No visible acute fracture, dislocation or subluxation seen. There is no joint effusion seen. XR/XR knee LT 4V IMPRESSION: Mild degenerative changes medial and patellofemoral compartment both knees. No visible acute fracture or dislocation seen. No joint effusion seen.
--- NOTE | ~2022-11-16 | XR_ITS ---
EXAMINATION: XR KNEE, BILATERAL CLINICAL INFORMATION: Bilateral knee pain. COMPARISON: None. TECHNIQUE: 4 views each knee. FINDINGS: Left Knee: There is mild loss of medial and patellar femoral compartment joint space without bony erosive changes, loose bodies. Minimal superior patellar spurring is noted. No abnormal joint effusion seen. Right Knee: There is mild loss of medial and patellofemoral compartment joint space with periarticular spurring. No visible acute fracture, dislocation or subluxation seen. There is no joint effusion seen. XR/XR knee RT 4V IMPRESSION: Mild degenerative changes medial and patellofemoral compartment both knees. No visible acute fracture or dislocation seen. No joint effusion seen.
== END 2022-11-16 10:00 | disposition home or self-care (01) ==
LOC: HO.XRAY 09:59
PROVIDERS: Visit Provider Registered Nurse
DX: M25.561 Pain in right knee (principal); M25.562 Pain in left knee
CPT/HCPCS: 73564

== ENCOUNTER 2023-01-15 08:30 | Outpatient (REF) | payer MEDICAID, SELFPAY ==
--- NOTE | ~2023-01-15 | MM_ITS ---
EXAMINATION: MM SCREENING DIGITAL BREAST TOMOSYNTHESIS, BILATERAL CLINICAL INFORMATION: Screening. Asymptomatic. The lifetime risk of breast cancer based on the Tyrer-Cuzick Model is 5%. COMPARISON: Mammography: 01/12/2022, 01/09/2021, 12/18/2019 TECHNIQUE: Digital breast tomosynthesis is performed in both the craniocaudal and mediolateral oblique views along with computer-aided detection (CAD). Synthesized 2D images are generated from the tomosynthesis. FINDINGS: There are scattered areas of fibroglandular density (ACR BI-RADS breast composition Category b). There are no significant masses, abnormal calcifications, or other abnormalities. Parenchymal pattern is similar to prior studies. There is no developing density or architectural abnormality. Right breast has biopsy clip marker central mid upper outer quadrant. The axilla and skin contours are unremarkable. No significant changes. MM/MM tomosynthesis screening BI IMPRESSION: No mammographic evidence of malignancy. ASSESSMENT: BI-RADS 1: Negative RECOMMENDATION: Routine annual mammography screening. This patient's information was entered into a reminder system with a target due date for their next mammogram.
== END 2023-01-15 08:31 | disposition home or self-care (01) ==
LOC: HO.MAMMO 08:30
PROVIDERS: Visit Provider Family Medicine
DX: Z12.31 Encounter for screening mammogram for malignant neoplasm of breast (principal)
CPT/HCPCS: 77063; 77067

== ENCOUNTER 2023-02-01 10:03 | Outpatient (REF) | payer MEDICAID, SELFPAY ==
[2023-02-04 04:44] LABS: HPV mRNA E6/E7 rflx Not Detected (Not Detected)
== END 2023-02-01 10:04 | disposition home or self-care (01) ==
LOC: HO.LNP 10:03
PROVIDERS: Visit Provider Advanced Practice Midwife
DX: Z01.419 Encounter for gynecological examination (general) (routine) without abnormal findings (principal)
CPT/HCPCS: 87624; 88142

== ENCOUNTER 2023-04-26 05:20 | Emergency (ER) | payer MEDICAID, SELFPAY ==
--- NOTE | ~2023-04-26 | CT_ITS ---
EXAMINATION: CT HEAD WITHOUT CONTRAST CLINICAL INFORMATION: Headache x3 weeks. COMPARISON: 02/03/2020 TECHNIQUE: Contiguous axial imaging was performed from the skull base to vertex without intravenous administration of contrast. This CT examination was performed using dose optimization techniques as appropriate, variously including the following: *Automated exposure control *Adjustment of mA and/or kV according to patient size (this includes techniques or standardized protocols for targeted exams where dose is matched to indication/reason for exam; i.e. extremities or head) *Use of iterative reconstruction technique DLP: 654 mGy-cm FINDINGS: There is no evidence of acute intracranial hemorrhage or territorial infarction. No mass effect or midline shift is seen. Green to white matter differentiation is preserved. No extra-axial fluid collections are identified. No hydrocephalus. The osseous structures and soft tissues are unremarkable. The mastoid air cells and visualized portions of the paranasal sinuses are well aerated. CT/CT head/brain wo IV con IMPRESSION: No acute intracranial pathology.
[2023-04-26 05:29] VITALS: BP 126/67; PULSE 69; RESP 18; TEMP 36.6; O2SAT 98; BMI 34.5
--- NOTE | 2023-04-26 06:42 | ED.GENADULT ---
HPI - General Adult General Chief complaint: Headache Stated complaint: HEADACHE Time Seen by Provider: 04/26/23 06:29 Source: patient and anesthetic assistant Mode of arrival: ambulatory Limitations: language barrier History of Present Illness HPI narrative: Patient is a 44-year-old female with history of elevated cholesterol, renal cysts, occasional tremors, anxiety presenting to the emergency department with 3 weeks of intermittent headaches and head pressure, also complaining of bilateral ear pain. States she was seen at the clinic and told she had an ear infection, states ear was irrigated but was not started on any antibiotics at that time. Also complains of photophobia. Denies any episodes of syncope. Denies nausea or vomiting. Reports history of migraines. Reports that currently she is experiencing pressure to the top of head, and intermittently feels pain. Denies any chest pain or shortness of breath. Denies worst headache of life, worst at onset. Denies worse in am, weight loss, night sweats, worse with standing. Has used Tylenol for arthritis with little relief. Denies any falls or other injury/trauma. MD complaint: headache Onset (ago): week(s) Location: head Radiation: other (bilateral ears) Severity: moderate Quality: dull Pain Consistency: intermittent Relieving factors: none Exacerbating factors: none Associated symptoms: other (photophobia) Treatments prior to arrival: other (Tylenol) Related Data Home Medications Medication Instructions Recorded Confirmed clonazepam 1 mg tablet (Klonopin) 1 mg PO BEDTIME 01/20/21 06/11/22 atorvastatin 80 mg tablet 1 tab PO BEDTIME 05/07/21 06/11/22 cholecalciferol (vitamin D3) 50 1 cap PO DAILY 05/07/21 06/11/22 mcg (2,000 unit) capsule clonazepam 1 mg tablet 1 - 2 tab PO BEDTIME PRN anxiety 05/07/21 06/11/22 clonidine HCl 0.2 mg tablet 1 tab PO BEDTIME 05/07/21 06/11/22 doxepin 10 mg capsule 1 cap PO BEDTIME 05/07/21 06/11/22 doxepin 50 mg capsule 50 mg PO BEDTIME 06/11/22 06/11/22 Previous Rx's Medication Instructions Recorded pyridoxine (vitamin B6) 100 mg 100 mg PO DAILY 90 days #90 tabs 06/11/22 tablet Allergies Allergy/AdvReac Type Severity Reaction Status Date / Time No Known Allergies Allergy Verified 02/01/23 10:14 Review of Systems Review of Systems: As per HPI. Yes all other systems are reviewed and are negative Constitutional: Constitutional: Reports as per HPI [facility] Past Medical History Medical History Anxiety Elevated cholesterol Occasional tremors Renal cyst Surgical History Hx of section Hx of tubal ligation Social History Social History Alcohol intake: never Patient Tobacco Use Status: Never used Tobacco Advance Directives: No Advance Directives Information Provided: No Physical Exam ED Vital Signs: Vital Signs - 24 hr 04/26/23 05:29 04/26/23 07:21 Temperature 98 F 98.2 F Pulse Rate 69 67 Respiratory Rate 18 16 Blood Pressure 126/67 110/40 L Pulse Oximetry 98 98 Oxygen Delivery Method Room Air Room Air BMI result Body Mass Index 34.5 Vital signs have been reviewed and appear to be correct. Blood pressure normal. Heart rate normal. Respiratory rate normal. Temperature normal. Oxygen saturation normal. Const General: cooperative, healthy appearing and no acute distress Orientation/consciousness: oriented to person, oriented to place, oriented to time and patient oriented x3 Limitations: no limitations HENMT Head: Yes normocephalic and Yes atraumatic Ears: external ears normal, TM's normal bilaterally, EAC's normal and mastoids normal bilaterally General nose exam: Normal external nose present Face and sinus: Yes face symmetric Mouth: oropharynx normal and moist mucous membranes Throat: Yes uvula midline Eyes General: appearance normal, both eyes and all related structures Pupils: Equal, round and reactive pupils present EOM: EOMs intact bilaterally Neck Neck: Yes normal visual inspection, Yes full ROM, Yes no meningeal signs and Yes supple Resp Effort & Inspection: normal respiratory effort and able to speak in complete sentences Auscultation: clear to auscultation bilaterally Cardio Rate: regular rate Rhythm: regular rhythm Heart sounds: S1 normal heart sound present and S2 normal heart sound present GI Palpation (GI): Soft to palpation and nontender Auscultation: normoactive bowel sounds General: Yes no CVA tenderness Back/Spine/Pelvis Back: no CVA tenderness Skin General skin exam: elasticity normal and turgor normal Neuro General: oriented to person, oriented to place, oriented to time, patient oriented x3, gait normal, tone normal, moves all extremities, no meningeal signs, no focal motor deficits, CN's II-XI intact bilaterally and deep tendon reflexes 2+ bilaterally Cranial nerves: Yes Equal, round and reactive pupils present Cognition (Neuro): normal cognition Motor exam (neuro): 5/5 motor strength present throughout Sensory Exam: Normal double simultaneous stimulation for sensation Extrem General: Yes full ROM, Yes no pedal edema and Yes no calf tenderness Psych Mental Status: mental status grossly normal Affect: normal affect Thought process: Normal thought process present Medications Administered Discontinued Medications Generic Name Dose Route Start Last Admin Trade Name Bryant PRN Reason Stop Dose Admin Diphenhydramine HCl 25 mg 04/26/23 07:07 04/26/23 07:26 Diphenhydramine Hcl 50 Mg/Ml Vial IVPUSH 04/26/23 07:08 25 mg ONCE ONE Administration Sodium Chloride 1,000 mls @ 999 mls/hr 04/26/23 07:15 04/26/23 07:25 Ns IV 04/26/23 08:15 999 mls/hr .Q1H1M RYNE Administration Ketorolac Tromethamine 15 mg 04/26/23 07:07 04/26/23 07:26 Ketorolac Tromethamine 15 Mg/Ml Vial IVPUSH 04/26/23 07:08 15 mg ONCE ONE Administration Metoclopramide HCl 10 mg 04/26/23 07:07 04/26/23 07:26 Metoclopramide Hcl 10 Mg/2 Ml Vial IVPUSH 04/26/23 07:08 10 mg ONCE ONE Administration Medical Decision Making Medical Decision Making MDM Narrative: Patient is a 44-year-old female with history of elevated cholesterol, renal cysts, occasional tremors, anxiety presenting to the emergency department with 3 weeks of intermittent headaches and head pressure, also complaining of bilateral ear pain. On exam patient is awake, A+Ox3, VS WNL, afebrile, normal neurological exam without focal deficits, PERRL, EOMs intact, neck supple. Given reported symptoms and physical exam findings, differential includes migraine versus tension headache, ICH/SAH, malignancy/mass. Less likely pseudotumor cerebrii, Unlikely acute glaucoma, carotid artery dissection, encephalopathy, meningitis, temporal/giant cell arteritis. CT notable for no acute abnormalities. My interpretation is in agreement with the radiologist's interpretation. Patient reports full resolution of symptoms after medications administered in the ED. Feel patient is stable for discharge home. All results discussed and all questions answered. Return precautions discussed at bedside. Advised Tylenol/ibuprofen as needed. Instructed patient to follow-up with PCP. Differential Diagnosis Differential Diagnoses: The differential diagnosis associated with the presentation includes As above. Admission/Observation Consideration of admission/observation: Escalation of care including admission/observation considered Considered on arrival based on reported symptoms of headache for 3 weeks. Independent Interpretation I performed an independent interpretation of an: CT Scan Interpretation: No acute abnormalities. Radiology Impression Discussion of test interpretation with radiology: I have reviewed the radiologist's reading. Radiologist Impression: CT/CT head/brain wo IV con IMPRESSION: No acute intracranial pathology. External Record Review External record reviewed: Inpatient record, Office record and Outpatient record Discharge Plan Discharge Clinical Impression: Headache Patient Disposition: Home, Self-Care Instructions: General Headache (ED) Additional Instructions: Pardo sido evaluado en el departamento de emergencias hoy por dolor de ritesh. Carlson evaluaci?n, incluida patti tomograf?a computarizada de carlson cerebro, no mostr? evidencia de condiciones m?dicas que requirieran patti intervenci?n de emergencia en estephania momento, y carlson dolor mejor? con medicamentos en el servicio de urgencias. Le recomendamos que tome 600 mg de ibuprofeno cada 6 horas o Tylenol 650 mg cada 6 horas seg?n sea necesario para el dolor. Si es necesario, puede alternar estos medicamentos para que tome 1 medicamento cada 3 horas. Por ejemplo, al mediod?a fabiola ibuprofeno, luego a las 3:00 p. m. fabiola Tylenol, luego a las 6:00 p.m. fabiola ibuprofeno. Elizabeth un seguimiento con carlson proveedor de atenci?n primaria dentro de los 2 d?as. Regrese al departamento de emergencias si experimenta dolor que empeora o no puede controlarse, cambios en la visi?n, v?mitos recurrentes, dificultad con las actividades normales, comportamiento anormal, dificultad para caminar, entumecimiento, debilidad o cualquier otro s?ntoma preocupante. Prescriptions: No Action atorvastatin 80 mg tablet 1 tab PO BEDTIME clonazepam 1 mg tablet 1 - 2 tab PO BEDTIME PRN (Reason: anxiety) doxepin 10 mg capsule 1 cap PO BEDTIME clonidine HCl 0.2 mg tablet 1 tab PO BEDTIME cholecalciferol (vitamin D3) 50 mcg (2,000 unit) capsule 1 cap PO DAILY clonazepam [Klonopin] 1 mg tablet 1 mg PO BEDTIME Rx Instructions: administer 30 minutes before bedtime doxepin 50 mg capsule 50 mg PO BEDTIME pyridoxine (vitamin B6) 100 mg tablet 100 mg PO DAILY 90 Days Qty: 90 3RF Print Language: Latvian
[2023-04-26 07:21] VITALS: BP 110/40; PULSE 67; RESP 16; TEMP 36.8; O2SAT 98
[2023-04-26] MEDS: 0.9 % Sodium Chloride 1,000 ML 999 ML IV (07:25)
[2023-04-26] MEDS: Ketorolac Tromethamine 15 MG/ML VIAL IVPUSH (07:26)
[2023-04-26] MEDS: diphenhydrAMINE HCL 50 MG/ML VIAL 25 MG IVPUSH (07:26)
[2023-04-26] MEDS: Metoclopramide HCl 10 MG/2 ML VIAL IVPUSH (07:26)
== END 2023-04-26 09:18 | disposition home or self-care (01) ==
PROVIDERS: Emergency Provider Emergency Medicine
DX: R51.9 Headache, unspecified (principal); H92.03 Otalgia, bilateral; E78.5 Hyperlipidemia, unspecified; Z79.899 Other long term (current) drug therapy
CPT/HCPCS: 70450; 96361; 96374; 96375; 99284; 99285; J1200; J1885; J2765

== ENCOUNTER 2023-04-28 08:11 | Outpatient (REF) | payer MEDICAID, SELFPAY ==
[2023-04-28 11:48] LABS: Estimated Average Glucose 103 mg/dL; Hemoglobin A1c % 5.2 %
== END 2023-04-28 08:12 | disposition home or self-care (01) ==
LOC: HO.HHCL 08:11
PROVIDERS: Visit Provider Registered Nurse
DX: E66.09 Other obesity due to excess calories (principal); Z68.34 Body mass index [BMI] 34.0-34.9, adult
CPT/HCPCS: 36415; 83036

== ENCOUNTER 2023-05-10 19:28 | Outpatient (REF) | payer MEDICAID, SELFPAY ==
[2023-05-11 06:08] LABS: CT PCR NOT DETECTED (Not Detect.); NG PCR NOT DETECTED (Not Detect.)
[2023-05-11 14:18] LABS: BV Int Neg Control Negative (Negative); BV Int Pos Control Positive (Positive)
== END 2023-05-10 19:29 | disposition home or self-care (01) ==
LOC: HO.HHCLNP 19:28
PROVIDERS: Visit Provider Family Medicine
DX: N89.8 Other specified noninflammatory disorders of vagina (principal)
CPT/HCPCS: 0353U; 87480; 87510; 87660

== ENCOUNTER 2023-06-02 10:25 | Outpatient (REF) | payer MEDICAID, SELFPAY ==
[2023-06-02 12:31] LABS: Anion Gap 15 (12-20); Blood Urea Nitrogen 22 mg/dL (9-16); Calcium 10.7 mg/dL (8.4-10.2); Carbon Dioxide 25 mmol/L (22-29); Chloride 109 mmol/L (96-108); Estimated Glomerular Filt Rate > 60; Glucose Random 108 mg/dL (60-115); Potassium 4.7 mmol/L (3.3-5.1); Sodium 144 mmol/L (135-145)
== END 2023-06-02 10:26 | disposition home or self-care (01) ==
LOC: HO.HHCL 10:25
PROVIDERS: Visit Provider Emergency Medicine
DX: R10.9 Unspecified abdominal pain (principal)
CPT/HCPCS: 36415; 80048; 87086

== ENCOUNTER 2023-06-03 16:17 | Emergency (ER) | payer MEDICAID, SELFPAY ==
--- NOTE | ~2023-06-03 | CT_ITS ---
EXAMINATION: CT ABDOMEN AND PELVIS WITH CONTRAST CLINICAL INFORMATION: Left flank/lower quadrant pain and tenderness. COMPARISON: CT abdomen/pelvis 01/07/2021. TECHNIQUE: Multidetector volumetric images were obtained from the superior aspect of the liver through the pubic symphysis following administration 85 mL of Omnipaque 350 intravenous contrast. Sagittal and coronal reformatted images were obtained on the technologist's workstation. Oral contrast: No This CT examination was performed using dose optimization techniques as appropriate, variously including the following: *Automated exposure control *Adjustment of mA and/or kV according to patient size (this includes techniques or standardized protocols for targeted exams where dose is matched to indication/reason for exam; i.e. extremities or head) *Use of iterative reconstruction technique DLP: 728 mGy-cm FINDINGS: LUNG BASES: No focal consolidation or pleural effusion. LIVER, GALLBLADDER, AND BILIARY TREE: A few ill-defined low attenuating liver lesions not consistent with cysts are not significantly changed dating back to 08/08/2016, for example measuring 1.2 cm in the superior right hepatic lobe and 1 cm in the inferior right hepatic lobe (2:32), stability is reassuring. The liver is enlarged with decreased parenchymal attenuation suggesting hepatic steatosis. Normal CT appearance of the gallbladder. No biliary ductal dilatation. PANCREAS: Unremarkable. SPLEEN: Unremarkable. ADRENAL GLANDS: Unremarkable. KIDNEYS AND URETERS: The kidneys are normal in size, shape, and attenuation. Too small to characterize hypodensities in the upper pole of the right kidney and mid pole of the left kidney that are statistically in favor to represent simple cysts and for which no imaging follow-up is recommended. No hydronephrosis, hydroureter, or calculi seen. No perinephric stranding. BLADDER: Unremarkable. GASTROINTESTINAL TRACT: The stomach, small bowel are nondilated. Colonic diverticulosis without significant pericolonic fat stranding or free fluid. No evidence of bowel obstruction. ABDOMINAL WALL: No significant hernia is appreciated. LYMPH NODES: No lymphadenopathy. VASCULAR: Normal caliber abdominal aorta. PELVIC VISCERA: Unremarkable. OSSEOUS STRUCTURES: No acute or aggressive appearing osseous abnormalities. CT/CT abdomen pelvis w IV con IMPRESSION: 1. No acute abdominal or pelvic abnormalities to explain the patient's symptoms. 2. Diverticulosis but no evidence of acute diverticulitis. 3. Hepatomegaly and hepatic steatosis.
[2023-06-03 16:20] VITALS: BP 134/64; PULSE 92; O2SAT 100
[2023-06-03 16:31] VITALS: BP 136/84; PULSE 92; RESP 18; TEMP 37.3; O2SAT 93; BMI 36.1
[2023-06-03 17:03] LABS: MANUAL DIFF FLAG NO
[2023-06-03] MEDS: 0.9 % Sodium Chloride 1,000 ML 999 ML IV (17:04)
[2023-06-03] MEDS: Ketorolac Tromethamine 30 MG/ML VIAL IVPUSH (17:04)
[2023-06-03 17:05] LABS: Basophils Percent Auto 0.4 % (0-2); Eosinophils Percent Auto 0.6 % (0-4); Hematocrit 43.3 % (37.0-47.0); Hemoglobin 14.3 g/dl (12.0-16.0); Imm Gran Abs Auto 0.01 X10*3/uL (0.00-0.03); Imm Gran Pct Auto 0.1 % (0.0-0.4); Lymphocytes Percent Auto 29.1 % (20-40); Mean Corpuscular Hemoglobin 29.2 pg (27.0-33.0); Mean Corpuscular Volume 88.5 fL (80.0-98.0); Monocytes Absolute Auto 0.6 X10*3/uL (0.1-1.2); Monocytes Percent Auto 8.4 % (2-11); Neutrophils Absolute Auto 4.2 x10*3/uL (2.0-8.3); Neutrophils Percent Auto 61.4 % (45-73); Platelet Count 238 X10*3/uL (160-400); Red Blood Count 4.89 X10*6/uL (4.20-5.50); Red Cell Distribution Width 12.8 % (11.0-16.0); White Blood Count 6.8 X10*3/uL (4.8-10.8)
--- NOTE | 2023-06-03 17:21 | ED.FEMALEGU ---
HPI - Female Genitourinary General Chief complaint: Urogenital-Female Stated complaint: l sided pain radiating to lower lumbar area Time Seen by Provider: 06/03/23 16:27 Source: patient Mode of arrival: ambulatory Limitations: language barrier (Bengali-speaking medical laboratory technician utilized) History of Present Illness HPI Narrative: Patient is a 50-year-old female who presents emergency department for evaluation of flank/abdominal pain. Patient reports that yesterday she began with left lower back pain that was severe and stabbing in nature with sudden onset and was radiating across to the right and in through the lower abdomen diffusely. She went to her primary care office at [facility], reporting that she received an injection which did improve her pain some in addition she was taking Motrin with some improvement in her pain. Reportedly she had a urine test which revealed evidence of urinary tract infection as well as blood in the urine though she was not able to visualize any blood. She was prescribed Macrobid, and she has taken 2 doses of this. She denies any dizziness, chest pain, shortness of breath, URI symptoms, nausea, vomiting, dysuria, hematuria, urinary frequency/urgency/hesitancy, constipation, diarrhea. Denies any history of similar pain in the past. She presents today as she reports that the pain has become increasingly worse. Related Data Home Medications Medication Instructions Recorded Confirmed clonazepam 1 mg tablet (Klonopin) 1 mg PO BEDTIME 01/20/21 06/11/22 atorvastatin 80 mg tablet 1 tab PO BEDTIME 05/07/21 06/11/22 cholecalciferol (vitamin D3) 50 1 cap PO DAILY 05/07/21 06/11/22 mcg (2,000 unit) capsule clonazepam 1 mg tablet 1 - 2 tab PO BEDTIME PRN anxiety 05/07/21 06/11/22 clonidine HCl 0.2 mg tablet 1 tab PO BEDTIME 05/07/21 06/11/22 doxepin 10 mg capsule 1 cap PO BEDTIME 05/07/21 06/11/22 doxepin 50 mg capsule 50 mg PO BEDTIME 06/11/22 06/11/22 Previous Rx's Medication Instructions Recorded pyridoxine (vitamin B6) 100 mg 100 mg PO DAILY 90 days #90 tabs 06/11/22 tablet Allergies Allergy/AdvReac Type Severity Reaction Status Date / Time No Known Allergies Allergy Verified 02/01/23 10:14 Review of Systems Review of Systems: Constitutional : No Weight loss, No Fever, No Chills ENT/Mouth :? No sore throat, No Rhinorrhea Eyes: No Swelling, No Redness Cardiovascular : No Chest Pain, No SOB, No Edema Respiratory : No Cough, No Sputum, No Wheezing Gastrointestinal : No Nausea, no Vomiting, no Diarrhea, positive abdominal pain, No Hematochezia, No Melena Genitourinary : No Dysuria, No Urinary Frequency, No Hematuria, No Urgency? Musculoskeletal : No joint pain, No Myalgias, No Joint Swelling Skin : No Skin Lesions, No rash Neuro : No Weakness, No Numbness, No Dizziness, No Headache Psych : No Anxiety/Panic, No Depression Heme/Lymph: No Bruising, No Lymphadenopathy Endocrine : No Polyuria, No Polydipsia Yes all other systems are reviewed and are negative [facility] Past Medical History Attestation statement: The following information was validated with the patient. Source: old records reviewed Medical History Anxiety Elevated cholesterol Occasional tremors Renal cyst Surgical History Hx of section Hx of tubal ligation Social History Social History Alcohol intake: never Patient Tobacco Use Status: Never used Tobacco Advance Directives: No Advance Directives Information Provided: No Physical Exam Vital Signs: Vital Signs: Last Vital Signs Temp 98.4 F 06/03/23 19:25 Pulse 87 06/03/23 19:25 Resp 18 06/03/23 19:25 BP 141/78 H 06/03/23 19:25 Pulse Ox 97 06/03/23 19:25 O2 Del Method Room Air 06/03/23 19:25 BMI result Body Mass Index 36.1 Appearance: Alert.?Oriented to person, place and time. No acute distress.?Normal affect. Eyes: Pupils equal, round and reactive to light.? ENT: Pharynx normal.?? Neck: Normal inspection.? Neck supple.?? CVS: Heart sounds normal. Normal heart rate and rhythm.? Pulses normal.?? Respiratory: No respiratory distress.? Lung sounds clear to auscultation bilaterally?? Abdomen: Soft with left lower quadrant and left CVA tenderness upon palpation Normoactive bowel sounds. No pulsatile mass.?? Skin: Skin warm and dry.? Normal skin color.? Extremities: No lower extremity edema.? Neuro: Moves all extremities spontaneously. Sensation intact bilaterally. No focal neuro deficits. Ambulates with normal steady gait. Course Reevaluation(s) Reevaluation #1: CBC is without acute abnormality no evidence of leukocytosis or anemia. CMP is overall unremarkable, no DELMA. CT of the abdomen and pelvis without acute abnormality, diverticulosis but no evidence of diverticulitis, no hydronephrosis or evidence of pyelonephritis. Reviewed these findings with patient. At this time feel that she is stable for discharge home, continued management of urinary tract infection with antibiotics as prescribed by her PCP in addition to acetaminophen/ibuprofen for pain, follow-up within 1-3 days. Discussed worrisome signs and symptoms that would warrant re-evaluation in the emergency department. All questions answered. Time: 19:37 Medications Administered Discontinued Medications Generic Name Dose Route Start Last Admin Trade Name Bryant PRN Reason Stop Dose Admin Sodium Chloride 1,000 mls @ 999 mls/hr 06/03/23 17:00 06/03/23 18:26 Ns IV 06/03/23 18:00 Infused .Q1H1M RYNE Infusion Iohexol 100 ml 06/03/23 18:56 06/03/23 18:56 Iohexol 350 Mg/Ml 100 Ml Infus..Btl IV 06/03/23 18:57 85 ml ONCE ONE Administration Ketorolac Tromethamine 30 mg 06/03/23 16:46 06/03/23 17:04 Ketorolac Tromethamine 30 Mg/Ml Vial IVPUSH 06/03/23 16:47 30 mg ONCE ONE Administration Medical Decision Making Medical Decision Making MDM Narrative: Patient is a 50-year-old female presents emergency department for evaluation of flank/abdominal pain. At the time of my examination she is overall well-appearing, though she does appear uncomfortable upon examination. Abdominal flank tenderness upon exam, but does not appear consistent with any acute abdomen no rigidity no guarding. She is afebrile without tachycardia. Will obtain CBC to evaluate for leukocytosis/ anemia, CMP and lipase to evaluate for abnormal electrolytes /abnormal renal function/ abnormal hepatic/biliary function, CT of the abdomen and pelvis and Urinalysis. Patient received 1 L normal saline IV fluid, ketorolac 30 mg IV. Differential Diagnosis Differential Diagnoses: The differential diagnosis associated with the presentation includes (Pyelonephritis, urinary tract infection, obstructive calculi, hydronephrosis, diverticulitis, radiculopathy) Admission/Observation Consideration of admission/observation: Escalation of care including admission/observation considered (I considered admission for abdominal pain, see course narrative for further detail) Lab Data MDM Lab Attestation statement: I reviewed the patient's lab results. (See course narrative for further detail) 06/03/23 17:00 06/03/23 17:00 Labs: Lab Results 06/03/23 06/03/23 Range/Units 17:00 17:00 WBC 6.8 (4.8-10.8) X10*3/uL RBC 4.89 (4.20-5.50) X10*6/uL Hgb 14.3 (12.0-16.0) g/dl Hct 43.3 (37.0-47.0) % MCV 88.5 (80.0-98.0) fL MCH 29.2 (27.0-33.0) pg MCHC 33.0 (31.0-35.0) g/dl RDW 12.8 (11.0-16.0) % Plt Count 238 (160-400) X10*3/uL MPV 10.0 (9.4-12.3) fL Immature Gran % (Auto) 0.1 (0.0-0.4) % Neut % (Auto) 61.4 (45-73) % Lymph % (Auto) 29.1 (20-40) % [place] % (Auto) 8.4 (2-11) % Eos % (Auto) 0.6 (0-4) % Baso % (Auto) 0.4 (0-2) % Lymph # (Auto) 2.0 (1.2-4.9) X10*3/uL [place] # (Auto) 0.6 (0.1-1.2) X10*3/uL Eos # (Auto) 0.0 (0.0-0.4) X10*3/uL Baso # (Auto) 0.0 (0.0-0.2) X10*3/uL Abs Immat Gran (auto) 0.01 (0.00-0.03) X10*3/uL Absolute Neuts (auto) 4.2 (2.0-8.3) x10*3/uL Absolute Nucleated RBC 0.000 (0.0-0.012) X10*3/uL Nucleated RBC % (auto) 0.0 (0.0-0.2) /100WBC Sodium 142 (135-145) mmol/L Potassium 3.7 D (3.3-5.1) mmol/L Chloride 111 H (96-108) mmol/L Carbon Dioxide 23 (22-29) mmol/L Anion Gap 12 (12-20) BUN 10 (9-16) mg/dL Creatinine 0.77 (0.5-1.4) mg/dL Estim Creat Clear Calc 85.9 Estimated GFR > 60 Random Glucose 104 (60-115) mg/dL Calcium 10.1 (8.4-10.2) mg/dL Total Bilirubin 0.4 (0.0-1.0) mg/dL AST 24 (5-31) U/L ALT 19 (0-31) U/L Alkaline Phosphatase 84 (39-117) U/L Total Protein 7.5 (6.5-8.0) g/dL Albumin 4.5 (3.5-5.0) g/dL Lipase 26 (8-78) U/L Radiology Impression Discussion of test interpretation with radiology: I have reviewed the radiologist's reading. Radiologist Impression: CT/CT abdomen pelvis w IV con IMPRESSION: 1.? No acute abdominal or pelvic abnormalities to explain the patient's symptoms. 2.? Diverticulosis but no evidence of acute diverticulitis. 3.? Hepatomegaly and hepatic steatosis. External Record Review External record reviewed: Outpatient record Discharge Plan Discharge Clinical Impression: Urinary tract infection Patient Disposition: Home, Self-Care Instructions: Urinary Tract Infection in Women (ED) Additional Instructions: Continue taking your antibiotics as prescribed by your primary care doctor for urinary tract infection You can take ibuprofen 200 mg, 3 tablets (600mg) every 6-8 hours as needed for pain, in addition to Tylenol 500 mg, 2 tablets (1,000mg) every 4-6 hours as needed for pain, but not to exceed 3 doses daily (3,000mg). Contact your primary care office to arrange for a follow-up visit within 1-3 days. Return back to emergency department any new or worsening symptoms or concerns. ? Prescriptions: No Action atorvastatin 80 mg tablet 1 tab PO BEDTIME clonazepam 1 mg tablet 1 - 2 tab PO BEDTIME PRN (Reason: anxiety) doxepin 10 mg capsule 1 cap PO BEDTIME clonidine HCl 0.2 mg tablet 1 tab PO BEDTIME cholecalciferol (vitamin D3) 50 mcg (2,000 unit) capsule 1 cap PO DAILY clonazepam [Klonopin] 1 mg tablet 1 mg PO BEDTIME Rx Instructions: administer 30 minutes before bedtime doxepin 50 mg capsule 50 mg PO BEDTIME pyridoxine (vitamin B6) 100 mg tablet 100 mg PO DAILY 90 Days Qty: 90 3RF Referrals: [facility] [Primary Care Provider] -
[2023-06-03 17:22] LABS: Alanine Aminotransferase 19 U/L (0-31); Albumin Level 4.5 g/dL (3.5-5.0); Alkaline Phosphatase 84 U/L (39-117); Anion Gap 12 (12-20); Aspartate Amino Transferase 24 U/L (5-31); Bilirubin Total 0.4 mg/dL (0.0-1.0); Blood Urea Nitrogen 10 mg/dL (9-16); Calcium 10.1 mg/dL (8.4-10.2); Carbon Dioxide 23 mmol/L (22-29); Chloride 111 mmol/L (96-108); Creatinine Clr Calc Pharmacy 85.9; Estimated Glomerular Filt Rate > 60; Glucose Random 104 mg/dL (60-115); Lipase 26 U/L (8-78); Potassium 3.7 mmol/L (3.3-5.1); Sodium 142 mmol/L (135-145); Total Protein 7.5 g/dL (6.5-8.0)
[2023-06-03] MEDS: iohexoL 350 MG/ML 100 ML INFUS..BTL IV (18:56)
[2023-06-03 19:25] VITALS: BP 141/78; PULSE 87; RESP 18; TEMP 36.9; O2SAT 97
== END 2023-06-03 19:59 | disposition home or self-care (01) ==
PROVIDERS: Nurse Practitioner Family; Emergency Provider Emergency Medicine
DX: N39.0 Urinary tract infection, site not specified (principal); K57.30 Diverticulosis of large intestine without perforation or abscess without bleeding; E78.5 Hyperlipidemia, unspecified; Z79.899 Other long term (current) drug therapy; Z79.02 Long term (current) use of antithrombotics/antiplatelets
CPT/HCPCS: 36415; 74177; 80053; 83690; 85025; 96361; 96374; 99284; J1885; Q9967

== ENCOUNTER 2023-06-25 11:30 | Outpatient (AMB) | payer MEDICAID, SELFPAY ==
--- NOTE | 2023-06-25 11:31 | MHC.OFFVIS ---
Intake Intake Visit Reasons: Calculus of kidney/ER follow up (CT 06/03) Allergies No Known Allergies Allergy (Verified 02/01/23 10:14) HPI HPI Comments History of Present Illness Details Itzel is a 58-year-old female who presents today to the office via Tele-health visit for a follow-up. 06/25/2023? She is followed today for calculus of the kidney. The patient is [place] speaking female. Certified automotive parts interpreter present during the Tele-health visit. She has seen David Spencer on 06/11/2022 for nephrolithiasis. The patient was advised to follow-up in 12 months with renal US during that time.? She was seen in ED on 06/03/2023 for left lower back pain. The patient was advised to take Ibuprofen 200 mg 3 tablets every 6-8 hours as needed for pain, and Tylenol 500 mg, 2 tablets every 4-6 [address] I reviewed the CT of the abdomen/pelvis results from 06/03/2023 revealed no acute abdominal or pelvic abnormalities. Kidneys: no hydronephrosis, or renal calculi, and too small to characterize hypodensity favouring simple cyst. I reviewed the urine culture results from 06/02/2023 which came back > 100,000 cfu/ml mixed bacterial whit characteristic of urogenital contamination. She denies flank pain or gross hematuria. Discussed no recurrent urolithiasis on recent imaging. Plan: Continue taking vitamin B6 100 mg daily Follow-up in 1 year with renal US. PFSH Medical History Anxiety Elevated cholesterol Occasional tremors Renal cyst Surgical History Hx of section Hx of tubal ligation Social History Alcohol intake: never Patient Tobacco Use Status: Never used Tobacco Review of Systems Const All systems reviewed & are unremarkable except as noted in HPI and below Reports no additional complaints Eyes Reports no additional complaints ENT Reports no additional complaints Card Denies dyspnea Resp Denies cough and Denies dyspnea GI Reports no additional complaints Reports no additional complaints Musc Reports no additional complaints Skin/Breast Denies rash and Denies unusual bruising Neuro Reports no additional complaints Psych Reports no additional complaints Endo Reports no additional complaints Adama/Lymph Reports no additional complaints Aller/Immun Reports no additional complaints Results Reviewed Results Reviewed: Ordered:? Urine Culture? Procedure?Result?Verified?Site ? Urine Culture? Final?06/04/23-0853 ? Report Result?> 100,000 cfu/ml ? Mixed bacterial whit characteristic of ? urogenital contamination. Date of Service: 06/03/23 EXAMINATION: CT ABDOMEN AND PELVIS WITH CONTRAST?? CLINICAL INFORMATION: Left flank/lower quadrant pain and tenderness.?? COMPARISON: CT abdomen/pelvis 01/07/2021. FINDINGS: LUNG BASES: No focal consolidation or pleural effusion.?? LIVER, GALLBLADDER, AND BILIARY TREE: A few ill-defined low attenuating liver lesions not consistent with cysts are not significantly changed dating back to 08/08/2016, for example measuring 1.2 cm in the superior right hepatic lobe and 1 cm in the inferior right hepatic lobe (2:32), stability is reassuring. The liver is enlarged with decreased parenchymal attenuation suggesting hepatic steatosis. Normal CT appearance of the gallbladder. No biliary ductal dilatation. PANCREAS: Unremarkable.?? SPLEEN: Unremarkable.?? ADRENAL GLANDS: Unremarkable.?? KIDNEYS AND URETERS: The kidneys are normal in size, shape, and attenuation. Too small to characterize hypodensities in the upper pole of the right kidney and mid pole of the left kidney that are statistically in favor to represent simple cysts and for which no imaging follow-up is recommended. No hydronephrosis, hydroureter, or calculi seen. No perinephric stranding.? ? BLADDER: Unremarkable.?? GASTROINTESTINAL TRACT: The stomach, small bowel are nondilated. Colonic diverticulosis without significant pericolonic fat stranding or free fluid. No evidence of bowel obstruction.?? ABDOMINAL WALL: No significant hernia is appreciated.?? LYMPH NODES: No lymphadenopathy. VASCULAR: Normal caliber abdominal aorta. PELVIC VISCERA: Unremarkable.?? OSSEOUS STRUCTURES: No acute or aggressive appearing osseous abnormalities.?? IMPRESSION: 1.? No acute abdominal or pelvic abnormalities to explain the patient's symptoms. 2.? Diverticulosis but no evidence of acute diverticulitis. 3.? Hepatomegaly and hepatic steatosis. Assessment & Plan Assessment & Plan (1) History of kidney stones: Code(s): Z87.442 - Personal history of urinary calculi (2) Renal cyst: Code(s): N28.1 - Cyst of kidney, acquired Plan Continue taking vitamin B6 100 mg. Follow-up in 1 year with renal US. Orders: Orders US renal BI 10 Months Z87.442 - Personal history of urinary calculi Medications: Refilled pyridoxine (vitamin B6) 100 mg PO DAILY 90 days 90 tabs 3RF N20.0 - Calculus of kidney Patient Instructions: The patient had an opportunity to ask questions regarding treatment plan. All questions were answered. Imaging, Laboratory studies and physical exam results were discussed and reviewed in detail. No major barriers to understanding were identified. The patient expressed understanding and agreement with the above treatment plan.? ? ? The patient is aware they should contact our office by phone for worsening of their current condition or the appearance of new symptoms. Compliance is encouraged with any medications and followup testing that is ordered.? ? ? It is a privilege to be allowed the opportunity to participate in the urologic care of your patient. If you have any questions or concerns regarding treatment for the above conditions please do not hesitate to contact me. The office telephone contact is [phone].? ? ? This note is constructed in part using voice recognition software. While every effort has been made to ensure accuracy beehive kiln charcoal burner errors may have been included.? ? ? Yours sincerely,? ? ? Herb Erickson MD? ? ? Telehealth Telehealth Location of provider rendering services: practice address Location of patient: address on file Patient Identification confirmed using: Name, : Yes Telehealth method: voice only Patient verbally consented to treatment: Yes Patient verbally consented to billing insurance company: Yes Patient informed of any privacy concerns related to visit: Yes Minutes spent on Phone/Video with Pt.: 15 Coding Level of Care Code Tele New Pt Level 3 (15320) Diagnoses History of kidney stones Z87.442 Renal cyst N28.1
== END 2023-06-25 14:42 | disposition home or self-care (01) ==
LOC: HO.HUSH 11:30
PROVIDERS: Visit Provider Urology
DX: N28.1 Cyst of kidney, acquired (principal); Z87.442 Personal history of urinary calculi
CPT/HCPCS: 99203

== ENCOUNTER → 2023-06-25 11:30 | Outpatient (BNVA) | payer MEDICAID, SELFPAY | PROVIDERS: Visit Provider Urology ==

== ENCOUNTER 2023-07-08 13:18 | Outpatient (REF) | payer MEDICAID, SELFPAY ==
[2023-07-08 16:21] LABS: Cholesterol 154 mg/dL (<200); HDL Cholesterol 52 mg/dL (>40); LDL Cholesterol Calculated 75 mg/dL (<100); Triglycerides 136 mg/dL (<150)
== END 2023-07-08 13:19 | disposition home or self-care (01) ==
LOC: HO.HHCL 13:18
PROVIDERS: Visit Provider Registered Nurse
DX: E78.2 Mixed hyperlipidemia (principal)
CPT/HCPCS: 36415; 80061

== ENCOUNTER 2023-09-08 15:48 | Emergency (ER) | payer MEDICAID, OTHER, SELFPAY ==
[2023-09-08 17:52] VITALS: BP 141/105; PULSE 100; RESP 18; TEMP 36; O2SAT 100; BMI 31.6
--- NOTE | 2023-09-08 17:53 | ED_ITS ---
HPI - General Adult General Chief complaint: General Medical Stated complaint: Dizziness, hair loss Time Seen by Provider: 09/08/23 21:13 Source: patient, RN notes reviewed and old records reviewed Mode of arrival: ambulatory History of Present Illness HPI narrative: 58-year-old female the past medical history of schizoaffective disorder, HLD, anxiety, presenting to the ED stating God talks to me, and I was informed I have cancer. Patient reports concern she has brain cancer, requesting CT scan. Also states she is and requesting ultrasound. Reports noncompliance with medication. Denies SI/HI at present. Denies ETOH or drug use. Denies CP/SOB, abdominal pain, nausea/vomiting Onset (ago): unknown Related Data Home Medications Medication Instructions Recorded Confirmed clonazepam 1 mg tablet (Klonopin) 1 mg PO BEDTIME 01/20/21 06/11/22 atorvastatin 80 mg tablet 1 tab PO BEDTIME 05/07/21 06/11/22 cholecalciferol (vitamin D3) 50 1 cap PO DAILY 05/07/21 06/11/22 mcg (2,000 unit) capsule clonazepam 1 mg tablet 1 - 2 tab PO BEDTIME PRN anxiety 05/07/21 06/11/22 clonidine HCl 0.2 mg tablet 1 tab PO BEDTIME 05/07/21 06/11/22 doxepin 10 mg capsule 1 cap PO BEDTIME 05/07/21 06/11/22 Previous Rx's Medication Instructions Recorded pyridoxine (vitamin B6) 100 mg 100 mg PO DAILY 90 days #90 tabs 06/25/23 tablet Allergies Allergy/AdvReac Type Severity Reaction Status Date / Time No Known Allergies Allergy Verified 09/08/23 17:52 Review of Systems 2 Review of Systems: Constitutional: No Fever, No Chills, No Fatigue, No Malaise Eyes: No Eye Pain, No Swelling, No Redness, No Vision Changes Cardiovascular: No Chest Pain, No SOB Respiratory: No Cough, No Sputum, No Dyspnea Gastrointestinal: No Nausea, No Vomiting, No Diarrhea, No Constipation, No Abdominal pain Musculoskeletal: No joint pain, No Myalgias, No Joint Swelling Skin: No Skin Lesions, No rash Neuro: No Weakness, No Dizziness, No Headache Psych: + Anxiety/Panic, No Depression, No SI/HI, +AH/VH, No Social Issues Yes all other systems are reviewed and are negative Constitutional: Constitutional: Reports as per [facility] Past Medical History Attestation statement: The following information was validated with the patient. Source: old records reviewed Medical History Renal cyst Anxiety Elevated cholesterol Occasional tremors Surgical History Hx of section Hx of tubal ligation Social History Social History Alcohol intake: never Patient Tobacco Use Status: Never used Tobacco Smoked in Last 30 Days: No Use of substances other than those prescribed or required for medical reasons: No Advance Directives: No Advance Directives Information Provided: No Patient : No Physical Exam ED Vital Signs: Vital Signs - 24 hr 09/08/23 17:52 09/08/23 19:30 09/08/23 20:16 Temperature 96.8 F 99.1 F Pulse Rate 100 83 86 Respiratory Rate 18 16 16 Blood Pressure 141/105 H 140/83 H 131/84 Pulse Oximetry 100 100 99 Oxygen Delivery Method Room Air Room Air Room Air 09/08/23 20:43 09/08/23 20:45 09/08/23 20:47 Temperature Pulse Rate 83 86 107 H Respiratory Rate Blood Pressure 128/80 123/77 119/87 Pulse Oximetry Oxygen Delivery Method 09/09/23 02:34 09/09/23 06:59 Temperature 98.1 F 98.9 F Pulse Rate 79 85 Respiratory Rate 16 14 Blood Pressure 130/72 128/64 Pulse Oximetry 98 96 Oxygen Delivery Method Room Air Room Air BMI result Body Mass Index 31.6 Const General: no acute distress Limitations: no limitations HENSC Head: Yes normal to inspection and Yes atraumatic Ears: hearing grossly normal bilaterally General nose exam: Normal external nose present Face and sinus: Yes normal facial exam Eyes General: appearance normal, both eyes and all related structures EOM: EOMs intact bilaterally Neck Neck: Yes normal visual inspection and Yes no meningeal signs Resp Effort & Inspection: normal respiratory effort and no respiratory distress Auscultation: clear to auscultation bilaterally Cardio Rate: regular rate Heart sounds: S1 normal heart sound present and S2 normal heart sound present GI Inspection: Yes normal to inspection Palpation (GI): Soft to palpation, nontender, no guarding and not rigid General: Yes no CVA tenderness Back/Spine/Pelvis Back: no CVA tenderness Skin Rashes: no rashes Wounds: no wounds Neuro General: tone normal, no meningeal signs and CN's II-XI intact bilaterally Cranial nerves: Yes CN's II-XII intact bilaterally Gait exam (Neuro): Normal gait present Motor exam (neuro): 5/5 motor strength present throughout Extrem General: Yes normal to inspection Psych Thought process: Illogical thought process present Thought content: suicidality, no homicidality and Hallucination(s) present auditory and visual Insight: Poor insight present (Psych) Judgement: Poor judgement present (Psych) Course Course Course Narrative: This is an RME: Additional HPI, ROS, PE not included below will be deferred to primary provider. This is a [id number]-female, with a hx of anxiety, hyperlipidemia, presenting to the emergency department with complaints of dizziness x 3 months and hair loss x 1 year. Reports that she has lost 15lbs in 4 weeks. Patient reports that she hears things from God and states that she thinks that she has cancer. Her symptoms have been ongoing for many months, when asked why she has not followed up with her primary care physician she states that daughter reveals things to her and she is not sure. Plan: Basic labs, TSH, UA -labs reassuring. HCG 7 > unlikely true likely hormonal. Will recommend repeat hCG in 48 hours -physician observation initiated at 23:16 as patient needs more time to be evaluated by CARE team -UA contaminated, we will wait on culture prior to antibiotic treatment -tox screen positive for benzos -0200--ED care transferred to Dr. Anderson pending CARE team sarah 09/09/2023 1205: Patient evaluated by CARE team. Cleared for discharge. Medical Decision Making Medical Decision Making MDM Narrative: 58-year-old female the past medical history of schizoaffective disorder, HLD, anxiety, presenting to the ED stating God talks to me, and I was informed I have cancer. Also states she is and requesting ultrasound. On exam hypertensive, NAD, nontoxic appearing, history limited due to patient's acute mental status. Active delusions/hallucinations. Concern for psychiatric illness vs medication noncompliance. Rule out metabolic abnormalities Plan: Labs, tox screen, CARE team consult Please refer to course for remaining clinical decision making, interpretation of labs/imaging results, and discussions with consultants and/or family members. Differential Diagnosis Differential Diagnoses: The differential diagnosis associated with the presentation includes As above Admission/Observation Consideration of admission/observation: Escalation of care including admission/observation considered Consult Healthcare Provider Management of the patient was discussed with: [facility] Provider Lab Data MDM Lab Attestation statement: I reviewed the patient's lab results. 09/08/23 18:20 09/08/23 18:20 Labs: Lab Results 09/08/23 09/09/23 09/09/23 Range/Units 18:20 00:41 01:04 WBC 8.6 (4.8-10.8) X10*3/uL RBC 4.90 (4.20-5.50) X10*6/uL Hgb 14.5 (12.0-16.0) g/dl Hct 43.6 (37.0-47.0) % MCV 89.0 (80.0-98.0) fL MCH 29.6 (27.0-33.0) pg MCHC 33.3 (31.0-35.0) g/dl RDW 12.0 (11.0-16.0) % Plt Count 232 (160-400) X10*3/uL MPV 11.1 (9.4-12.3) fL Immature Gran % (Auto) 0.6 H (0.0-0.4) % Neut % (Auto) 71.3 (45-73) % Lymph % (Auto) 19.3 L (20-40) % [place] % (Auto) 8.4 (2-11) % Eos % (Auto) 0.2 (0-4) % Baso % (Auto) 0.2 (0-2) % Lymph # (Auto) 1.7 (1.2-4.9) X10*3/uL [place] # (Auto) 0.7 (0.1-1.2) X10*3/uL Eos # (Auto) 0.0 (0.0-0.4) X10*3/uL Baso # (Auto) 0.0 (0.0-0.2) X10*3/uL Abs Immat Gran (auto) 0.05 H (0.00-0.03) X10*3/uL Absolute Neuts (auto) 6.1 (2.0-8.3) x10*3/uL Absolute Nucleated RBC 0.000 (0.0-0.012) X10*3/uL Nucleated RBC % (auto) 0.0 (0.0-0.2) /100WBC Sodium 142 (135-145) mmol/L Potassium 3.9 (3.3-5.1) mmol/L Chloride 103 (96-108) mmol/L Carbon Dioxide 28 (22-29) mmol/L Anion Gap 15 (12-20) BUN 13 (9-16) mg/dL Creatinine 0.73 (0.5-1.4) mg/dL Estim Creat Clear Calc 84.6 Estimated GFR > 60 Random Glucose 116 H (60-115) mg/dL Calcium 10.4 H (8.4-10.2) mg/dL Total Bilirubin 0.6 (0.0-1.0) mg/dL Direct Bilirubin 0.2 (0.0-0.5) mg/dL AST 19 (5-31) U/L ALT 17 (0-31) U/L Alkaline Phosphatase 91 (39-117) U/L Total Protein 7.8 (6.5-8.0) g/dL Albumin 4.7 (3.5-5.0) g/dL TSH 1.55 (0.32-4.0) uIU/mL Beta HCG, Quant 7 mIU/mL Urine Color Dark Yellow Urine Appearance Cloudy Urine pH 5.5 (5.0-9.0) Ur Specific [place] >= 1.030 H (1.005-1.025) Urine Protein Trace (Neg-Trace) mg/dL Urine Glucose (UA) Negative (Negative) mg/dL Urine Ketones 40 (Negative) mg/dL Urine Blood Negative (Negative) Urine Nitrite Negative (Negative) Ur Leukocyte Esterase Small (1+) H (Negative) Urine RBC 11-20 H (0-2) /HPF Urine WBC 6-10 H (0-5) /HPF Ur Squamous Epith Cells 11-20 (0-2) /HPF Urine Bacteria 2+ (None Seen) Hyaline Casts 0-2 (0-2) /LPF Salicylates < 5.0 L (15-30) mg/dL Urine Opiates Screen Not Detected (Not Detect) Urine Fentanyl Screen Not Detected (Not Detect) Acetaminophen < 3 (<30) mcg/mL Ur Barbiturates Screen Not Detected (Not Detect) Ur Phencyclidine Scrn Not Detected (Not Detect) Ur Amphetamines Screen Not Detected (Not Detect) U Benzodiazepines Scrn POSITIVE H (Not Detect) Urine Cocaine Screen Not Detected (Not Detect) U Marijuana (THC) Screen Not Detected (Not Detect) Ethyl Alcohol < 10 mg/dL Radiology Impression Discussion of test interpretation with radiology: I have reviewed the radiologist's reading. External Record Review External record reviewed: Inpatient record, Office record, Outpatient record, Prior outpatient labs, Prior outpatient radiology, Primary care record and Outside ED record Tests considered The following testing was considered but not selected: As above Chronic Conditions Patient?s care impacted by: Other (Schizoaffective) Discharge Plan Discharge Clinical Impression: Delusions, Hallucinations, Elevated serum hCG Patient Disposition: Home, Self-Care Instructions: Psychotic Disorder (ED) Additional Instructions: Your hCG was elevated to 7, this lab needs to be repeated in 48 hours. Please continue home medications and follow-up with your doctor Prescriptions: No Action atorvastatin 80 mg tablet 1 tab PO BEDTIME clonazepam 1 mg tablet 1 - 2 tab PO BEDTIME PRN (Reason: anxiety) doxepin 10 mg capsule 1 cap PO BEDTIME clonidine HCl 0.2 mg tablet 1 tab PO BEDTIME cholecalciferol (vitamin D3) 50 mcg (2,000 unit) capsule 1 cap PO DAILY clonazepam [Klonopin] 1 mg tablet 1 mg PO BEDTIME Rx Instructions: administer 30 minutes before bedtime pyridoxine (vitamin B6) 100 mg tablet 100 mg PO DAILY 90 Days Qty: 90 3RF Referrals: [facility] [Provider Group] [facility] [Provider Group] Physician,Unknown J [Primary Care Provider] -
[2023-09-08 18:28] LABS: MANUAL DIFF FLAG NO
[2023-09-08 18:51] LABS: Basophils Percent Auto 0.2 % (0-2); Eosinophils Percent Auto 0.2 % (0-4); Hematocrit 43.6 % (37.0-47.0); Hemoglobin 14.5 g/dl (12.0-16.0); Imm Gran Abs Auto 0.05 X10*3/uL (0.00-0.03); Imm Gran Pct Auto 0.6 % (0.0-0.4); Lymphocytes Absolute Auto 1.7 X10*3/uL (1.2-4.9); Lymphocytes Percent Auto 19.3 % (20-40); Mean Corpuscular HGB Conc 33.3 g/dl (31.0-35.0); Mean Corpuscular Hemoglobin 29.6 pg (27.0-33.0); Mean Platelet Volume 11.1 fL (9.4-12.3); Monocytes Absolute Auto 0.7 X10*3/uL (0.1-1.2); Monocytes Percent Auto 8.4 % (2-11); Neutrophils Absolute Auto 6.1 x10*3/uL (2.0-8.3); Neutrophils Percent Auto 71.3 % (45-73); Platelet Count 232 X10*3/uL (160-400); White Blood Count 8.6 X10*3/uL (4.8-10.8)
[2023-09-08 19:02] LABS: Alanine Aminotransferase 17 U/L (0-31); Albumin Level 4.7 g/dL (3.5-5.0); Alkaline Phosphatase 91 U/L (39-117); Anion Gap 15 (12-20); Aspartate Amino Transferase 19 U/L (5-31); Bilirubin Direct 0.2 mg/dL (0.0-0.5); Bilirubin Total 0.6 mg/dL (0.0-1.0); Blood Urea Nitrogen 13 mg/dL (9-16); Calcium 10.4 mg/dL (8.4-10.2); Carbon Dioxide 28 mmol/L (22-29); Chloride 103 mmol/L (96-108); Creatinine Clr Calc Pharmacy 84.6; Estimated Glomerular Filt Rate > 60; Glucose Random 116 mg/dL (60-115); Potassium 3.9 mmol/L (3.3-5.1); Sodium 142 mmol/L (135-145); Total Protein 7.8 g/dL (6.5-8.0)
[2023-09-08 19:17] LABS: TSH reflex Free T4 1.55 uIU/mL (0.32-4.0)
[2023-09-08 19:30] VITALS: BP 140/83; PULSE 83; RESP 16; TEMP 37.3; O2SAT 100
[2023-09-08 20:16] VITALS: BP 131/84; PULSE 86; RESP 16; O2SAT 99
[2023-09-08 20:43] VITALS: BP 128/80; PULSE 83
[2023-09-08 20:45] VITALS: BP 123/77; PULSE 86
[2023-09-08 20:47] VITALS: BP 119/87; PULSE 107
--- NOTE | 2023-09-08 20:48 | PC.NURSE ---
orthos performed at this time. pt awaiting to see provider.
--- NOTE | 2023-09-08 22:45 | PC.NURSE ---
Addendum entered by Katie Patten 09/08/23 23:14: pt moved to main ed for 1:1 sitter change into gown with security belongings in locker 11. pt reports seeing god and god told me I am a prophet I saw an illusion that made me believe I needed to be seen in the er. pt was speaking lithuanian to this RN then stated she no longer speaks lithuanian and doesn't understand. Original Note: pt axox3 unsure of year; denies si/hi. per [facility] pt needs care team consult. will notify security for house mover helper. rn pacu roxanna [place].
[2023-09-08 22:57] LABS: HCG Quantitative 7 mIU/mL
[2023-09-08 23:52] LABS: Ethanol < 10 mg/dL
--- NOTE | 2023-09-09 00:27 | PC.NURSE ---
pt resting comfortably in bed, sitter at bedside, pt wondering what she is waiting for, RN explained needing a care team consult. pt states i'm not crazy
[2023-09-09 01:10] LABS: Appearance Urine Cloudy; Color Urine Dark Yellow; Glucose Urine UA Negative (Negative); Leukocyte Esterase Urine Small (1+) (Negative); Nitrite Urine Negative (Negative); PH 5.5 (5.0-9.0); Specific Gravity - Urine >= 1.030 (1.005-1.025); UMIC TRIGGER UACC YES; Urine Blood Negative (Negative); Urine Ketones 40 mg/dL (Negative); Urine Protein Trace mg/dL (Neg-Trace)
[2023-09-09 01:18] LABS: Amphetamine Screen Urine Not Detected (Not Detect); Barbiturates, Urine Not Detected (Not Detect); Benzodiazepines Screen Urine POSITIVE (Not Detect); Cannabinoid Screen Urine Not Detected (Not Detect); Cocaine Screen Urine Not Detected (Not Detect); Fentanyl, urine Not Detected (Not Detect); Opiate Screen Urine Not Detected (Not Detect); Phencyclidine Screen Urine Not Detected (Not Detect)
[2023-09-09 01:19] LABS: Bacteria Urine 2+ (None Seen); Hyaline Casts Urine 0-2 /LPF (0-2); UACC Culture Trigger YES
[2023-09-09 01:45] LABS: Acetaminophen LAB < 3 mcg/mL (<30); Salicylate < 5.0 mg/dL (15-30)
[2023-09-09 02:34] VITALS: BP 130/72; PULSE 79; RESP 16; TEMP 36.7; O2SAT 98
--- NOTE | 2023-09-09 06:29 | PC.NURSE ---
pt calm and cooperative through the night, resting quieting with eyes closed, breathing even and unlabored. no apparent distress noted at this time
[2023-09-09 06:59] VITALS: BP 128/64; PULSE 85; RESP 14; TEMP 37.2; O2SAT 96
--- NOTE | 2023-09-09 07:18 | PC.NURSE ---
patient resting quietly in bed in front of nurses station, patient respirations equal and unlabored, shows no signs of distress. patient has sitter 1:1 at bedside
--- NOTE | 2023-09-09 09:45 | PC.NURSE ---
this RN resumed care of pt at this time. pt resting comfortably and in no apparent distress. respirations even and unlabored. 1:1 sitter present.
== END 2023-09-09 12:26 | disposition home or self-care (01) ==
PROVIDERS: Physician Assistant; Physician Assistant Medical; Emergency Provider Emergency Medicine
DX: R42 Dizziness and giddiness (principal); R44.0 Auditory hallucinations; Z91.199 Patient's noncompliance with other medical treatment and regimen due to unspecified reason; Z79.899 Other long term (current) drug therapy
CPT/HCPCS: 36415; 80048; 80076; 80143; 80179; 80307; 81001; 84443; 84702; 85025; 87086; 99284; S9485

== ENCOUNTER → 2023-09-22 08:48 | Outpatient (BNVA) | payer MEDICAID, SELFPAY | PROVIDERS: Visit Provider Physician Assistant Surgical ==

== ENCOUNTER → 2023-09-30 09:55 | Outpatient (BNVA) | payer MEDICAID, SELFPAY | PROVIDERS: PCP Registered Nurse; Visit Provider Physician Assistant ==

== ENCOUNTER 2023-10-13 12:27 | Outpatient (REF) | payer MEDICAID, SELFPAY | END 2023-10-13 12:28 | disposition home or self-care (01) | LOC: HO.HHCL 12:27 | PROVIDERS: Visit Provider Registered Nurse | DX: R35.0 Frequency of micturition (principal) | CPT/HCPCS: 36415; 80048; 81001; 85025; 87086 ==

== ENCOUNTER 2023-10-26 05:41 | Inpatient (IN) | payer OTHER, MEDICAID, SELFPAY ==
[2023-10-26 05:50] VITALS: BMI 29.1
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
[2023-10-26] MEDS: Acetaminophen 325 MG TABLET 650 MG PO (06:27)
[2023-10-26 06:30] LABS: Basophils Percent Auto 0.5 % (0-2); Eosinophils Absolute Auto 0.1 X10*3/uL (0.0-0.4); Eosinophils Percent Auto 1.2 % (0-4); Hematocrit 41.6 % (37.0-47.0); Hemoglobin 13.7 g/dl (12.0-16.0); Imm Gran Abs Auto 0.02 X10*3/uL (0.00-0.03); Imm Gran Pct Auto 0.3 % (0.0-0.4); Lymphocytes Absolute Auto 1.6 X10*3/uL (1.2-4.9); MANUAL DIFF FLAG NO; Mean Corpuscular HGB Conc 32.9 g/dl (31.0-35.0); Mean Corpuscular Hemoglobin 29.1 pg (27.0-33.0); Mean Corpuscular Volume 88.3 fL (80.0-98.0); Mean Platelet Volume 10.4 fL (9.4-12.3); Monocytes Absolute Auto 0.6 X10*3/uL (0.1-1.2); Monocytes Percent Auto 8.4 % (2-11); Neutrophils Absolute Auto 4.3 x10*3/uL (2.0-8.3); Neutrophils Percent Auto 65.6 % (45-73); Platelet Count 266 X10*3/uL (160-400); Red Blood Count 4.71 X10*6/uL (4.20-5.50); Red Cell Distribution Width 12.6 % (11.0-16.0); White Blood Count 6.6 X10*3/uL (4.8-10.8)
[2023-10-26 06:45] LABS: Alanine Aminotransferase 17 U/L (0-31); Albumin Level 4.5 g/dL (3.5-5.0); Alkaline Phosphatase 71 U/L (39-117); Anion Gap 15 (12-20); Aspartate Amino Transferase 18 U/L (5-31); Bilirubin Direct 0.2 mg/dL (0.0-0.5); Bilirubin Total 0.7 mg/dL (0.0-1.0); Blood Urea Nitrogen 10 mg/dL (9-16); Carbon Dioxide 25 mmol/L (22-29); Chloride 106 mmol/L (96-108); Creatinine Clr Calc Pharmacy 87.4; Estimated Glomerular Filt Rate > 60; Ethanol < 10 mg/dL; Glucose Random 126 mg/dL (60-115); Potassium 3.9 mmol/L (3.3-5.1); Sodium 142 mmol/L (135-145); Total Protein 7.2 g/dL (6.5-8.0)
--- NOTE | 2023-10-26 06:47 | PC.NURSE ---
Pt is sectioned [address] Carter. Pt denies SI/HI at this time. Medicated with acetaminophen for a headache, 07/20.
[2023-10-26 09:05] VITALS: RESP 18
[2023-10-26 09:51] LABS: Appearance Urine Cloudy; Color Urine Yellow; Glucose Urine UA Negative (Negative); Leukocyte Esterase Urine Small (1+) (Negative); Nitrite Urine Negative (Negative); PH 6.5 (5.0-9.0); Specific Gravity - Urine 1.015 (1.005-1.025); UMIC TRIGGER UACC YES; Urine Blood Negative (Negative); Urine Ketones Trace mg/dL (Negative); Urine Protein Negative (Neg-Trace)
[2023-10-26 10:06] LABS: Bacteria Urine 1+ (None Seen); Hyaline Casts Urine 0-2 /LPF (0-2); RBC Urine 0-2 /HPF (0-2); Squamous Epithelial Cell Urine >20 /HPF (0-2); UACC Culture Trigger YES
[2023-10-26 10:20] LABS: Amphetamine Screen Urine Not Detected (Not Detect); Barbiturates, Urine Not Detected (Not Detect); Benzodiazepines Screen Urine Not Detected (Not Detect); Cannabinoid Screen Urine Not Detected (Not Detect); Cocaine Screen Urine Not Detected (Not Detect); Fentanyl, urine Not Detected (Not Detect); Opiate Screen Urine Not Detected (Not Detect); Phencyclidine Screen Urine Not Detected (Not Detect)
[2023-10-26 12:14] VITALS: BP 134/74; PULSE 81; RESP 16; TEMP 36.9; O2SAT 98
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
--- NOTE | 2023-10-26 15:56 | PHA.MEDREC ---
Pharmacy Consult ? Medication Reconciliation Pharmacy has reviewed the medication reconciliation completed by Iveth. Unable to speak with patient due agitation, utilized claim history to complete med rec. Sarah Zabala, MarissaD
[2023-10-26] MEDS: HaloperidoL 5 MG TABLET PO (16:27)
--- NOTE | 2023-10-26 16:40 | PC.NURSE ---
Assumed care of this patient at 1500.
--- NOTE | 2023-10-26 19:07 | ECG_ITS ---
Test Reason : CHECK QTC Blood Pressure : / mmHG Vent. Rate : 079 BPM Atrial Rate : 079 BPM P-R Int : 134 ms QRS Dur : 076 ms QT Int : 376 ms P-R-T Axes : 043 003 025 degrees QTc Int : 431 ms Normal sinus rhythm with sinus arrhythmia Normal ECG When compared with ECG of 25-JUL-2022 12:04, No significant change was found Referred By: Sanjuana Carter Electronically Signed By:DOMO AL
[2023-10-26 19:18] VITALS: BP 134/80; PULSE 85; RESP 16; TEMP 36.7; O2SAT 96
[2023-10-26 19:38] LABS: COVID-19 Test Negative (Negative); IDNOW Serial# 08D9AD1C
[2023-10-26] MEDS: Benztropine Mesylate 0.5 MG TABLET PO (20:56)
[2023-10-26] MEDS: Doxepin HCl 25 MG CAPSULE 50 MG PO (20:56)
[2023-10-26] MEDS: HaloperidoL 5 MG TABLET 10 MG PO (20:57)
[2023-10-26] MEDS: clonazePAM 1 MG TABLET PO (20:58)
[2023-10-27 00:07] VITALS: BP 105/65; PULSE 72; RESP 16; TEMP 36.6; O2SAT 97
--- NOTE | 2023-10-27 00:08 | MHC.EDTECH ---
This tech took over care of patient at 2300,hourly rounds and vitals completed. Patient is resting 1-1 sitter at bedside for safety
--- NOTE | 2023-10-27 02:18 | MHC.EDTECH ---
Hourly rounds completed,patient is sleeping,resp. rate WNL. 1-1 sitter at bedside for safety
[2023-10-27 06:00] VITALS: BP 112/76; PULSE 88; RESP 16; TEMP 36.7; O2SAT 97
--- NOTE | 2023-10-27 06:59 | PC.NURSE ---
Assumed care of pt at 2300. PT resting for most of the evening. ambulated indpendently to bathroom. PT denies SI/HI at this time. 1:1 sitter at bedside. Plan of care ongoing
[2023-10-27] MEDS: Cholecalciferol (Vitamin D3) 25 MCG TABLET 50 MCG PO (07:54)
[2023-10-27] MEDS: HaloperidoL 5 MG TABLET PO (07:54)
[2023-10-27] MEDS: Multivitamin TABLET 1 TAB PO (07:54)
[2023-10-27] MEDS: Benztropine Mesylate 0.5 MG TABLET PO ×2 (07:54→22:26)
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
[2023-10-27 16:12] VITALS: BP 113/65; PULSE 83; RESP 16; TEMP 36.8; O2SAT 95
--- NOTE | 2023-10-27 21:00 | PC.NURSE ---
report given to M3 nurse awaiting bed assignment. nad. pt resting comfortably in stretcher.
--- NOTE | 2023-10-27 21:43 | PC.NURSE ---
pt refusing night time meds; she states would like to wait until exactly 2200 to take them.
[2023-10-27] MEDS: Doxepin HCl 25 MG CAPSULE 50 MG PO (22:25)
[2023-10-27] MEDS: HaloperidoL 5 MG TABLET 10 MG PO (22:26)
--- NOTE | 2023-10-27 22:30 | PC.NURSE ---
pt refusing metformin and atorvastatin as she states i dont have high cholesterol and i dont have problems with my sugar. pt continues to refuse after educating on importance of taking these meds.
[2023-10-27 23:20] VITALS: BP 104/55; PULSE 95; RESP 16; TEMP 36.1; O2SAT 97
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
[2023-10-28 05:45] VITALS: BMI 27.1
[2023-10-28 07:00] VITALS: BMI 27.3
[2023-10-28 08:24] VITALS: BP 136/64; PULSE 102; RESP 16; TEMP 36.2; O2SAT 96
[2023-10-28 08:46] LABS: Alanine Aminotransferase 18 U/L (0-31); Albumin Level 4.7 g/dL (3.5-5.0); Alkaline Phosphatase 77 U/L (39-117); Anion Gap 16 (12-20); Aspartate Amino Transferase 17 U/L (5-31); Bilirubin Total 0.6 mg/dL (0.0-1.0); Blood Urea Nitrogen 20 mg/dL (9-16); Calcium 10.4 mg/dL (8.4-10.2); Carbon Dioxide 29 mmol/L (22-29); Chloride 103 mmol/L (96-108); Cholesterol 251 mg/dL (<200); Creatinine Clr Calc Pharmacy 64.9; Estimated Glomerular Filt Rate > 60; Glucose Fasting 210 mg/dL (60-99); HDL Cholesterol 54 mg/dL (>40); LDL Cholesterol Calculated 172 mg/dL (<100); Potassium 4.7 mmol/L (3.3-5.1); Sodium 143 mmol/L (135-145); Total Protein 7.6 g/dL (6.5-8.0); Triglycerides 129 mg/dL (<150)
[2023-10-28] MEDS: HaloperidoL 5 MG TABLET PO (09:27)
[2023-10-28] MEDS: Benztropine Mesylate 0.5 MG TABLET PO ×2 (09:27→20:35)
[2023-10-28] MEDS: Multivitamin TABLET 1 TAB PO (09:28)
[2023-10-28] MEDS: Cholecalciferol (Vitamin D3) 25 MCG TABLET 50 MCG PO (09:28)
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
[2023-10-28] MEDS: Pyridoxine HCl (Vitamin B6) 50 MG TABLET 100 MG PO (11:54)
[2023-10-28 20:17] VITALS: BP 121/65; PULSE 81; RESP 18; TEMP 36.1; O2SAT 96
[2023-10-28] MEDS: HaloperidoL 5 MG TABLET 10 MG PO (20:36)
[2023-10-29 08:17] LABS: Glucose, Whole Blood 127 mg/dL (60-115)
[2023-10-29 08:35] VITALS: BP 120/61; PULSE 103; RESP 16; TEMP 36.1; O2SAT 98
[2023-10-29] MEDS: Pyridoxine HCl (Vitamin B6) 50 MG TABLET 100 MG PO (09:34)
[2023-10-29] MEDS: Benztropine Mesylate 0.5 MG TABLET PO (09:34)
[2023-10-29] MEDS: Multivitamin TABLET 1 TAB PO (09:35)
[2023-10-29] MEDS: HaloperidoL 5 MG TABLET PO (09:35)
[2023-10-29] MEDS: Cholecalciferol (Vitamin D3) 25 MCG TABLET 50 MCG PO (09:35)
[2023-10-29 14:11] LABS: UPreg QC Valid YES; Urine Pregnancy NEGATIVE (NEGATIVE)
--- NOTE | 2023-10-29 14:45 | HO.PSYCHPN ---
Subjective Subjective Date of Service: 10/29/23 Reason For Visit: si paranoia Interim History: irritable, psychotic. states her mood is good but clearly angry. once that is observed alleges that we are making her angry because we will not let her sleep. she is asked to detail exactly who is making her angry, and she indicates specifically MD and siebel solution architect as well as staff writ large. she is impatient to end the interview. she has no questions or concerns. MD reinforces the need for her to take medications. Mental Status Exam Mental Status Exam Narrative: sunglasses, swaddled in blanket, street clothes underneath. begrudgingly and very temporarily cooperative, no PMA/PMR. speech somewhat increased in rate and amount, nml loudness, decr latency. thoughts linear, illogical, with paranoid delusions. affect constricted, hyper-intense, min-labile, irritable. mood good. no SI/HI/AVH expressed. Diagnostics Vital Signs (24Hr): Vital Signs - 24 hr 10/28/23 20:17 10/29/23 08:35 Temperature 96.9 F 97.0 F Pulse Rate 81 103 H Respiratory Rate 18 16 Blood Pressure 121/65 120/61 Pulse Oximetry 96 98 Oxygen Delivery Method Room Air Room Air BMI result Body Mass Index 27.3 Labs 10/26/23 06:26 10/28/23 08:20 Labs: Laboratory Results - last 48 hr 10/28/23 10/29/23 10/29/23 08:20 08:10 13:55 Sodium 143 Potassium 4.7 D Chloride 103 Carbon Dioxide 29 Anion Gap 16 BUN 20 H Creatinine 0.95 Estim Creat Clear Calc 64.9 Estimated GFR > 60 POC Glucose 127 H Fasting Glucose 210 H Calcium 10.4 H Total Bilirubin 0.6 AST 17 ALT 18 Alkaline Phosphatase 77 Total Protein 7.6 Albumin 4.7 Triglycerides 129 Cholesterol 251 H LDL Cholesterol, Calc 172 H HDL Cholesterol 54 Urine Test NEGATIVE Medications Medications Current Medications Acetaminophen (Acetaminophen 325 Mg Tablet) 650 mg PO Q6H PRN PRN Reason: Headache/Pain Mild Scale (1-3) Al Hydroxide/Mg Hydroxide (Magnesium Hydrox/Alum Hydrox 30 Ml Oral.Susp) 30 ml PO Q6H PRN PRN Reason: Heartburn/Nausea Atorvastatin Calcium (Atorvastatin Calcium 80 Mg Tablet) 80 mg PO BEDTIME RYNE Last Admin: 10/28/23 20:39 Dose: Not Given Benztropine Mesylate (Benztropine Mesylate 0.5 Mg Tablet) 0.5 mg PO BID [facility] Last Admin: 10/29/23 09:34 Dose: 0.5 mg Clonazepam (Clonazepam 1 Mg Tablet) 1 mg PO BEDTIME PRN PRN Reason: anxiety Last Admin: 10/26/23 20:58 Dose: 1 mg Doxepin HCl (Doxepin Hcl 25 Mg Capsule) 50 mg PO BEDTIME [facility] Last Admin: 10/28/23 20:39 Dose: Not Given Haloperidol (Haloperidol 5 Mg Tablet) 5 mg PO DAILY [facility] Last Admin: 10/29/23 09:35 Dose: 5 mg Haloperidol (Haloperidol 5 Mg Tablet) 10 mg PO BEDTIME [facility] Last Admin: 10/28/23 20:36 Dose: 10 mg Hydrocortisone (Hydrocortisone 1 % Cream 28.35 Gm Tube) 1 appl TOPICAL BID PRN; Protocol PRN Reason: Hemorrhoids Hydroxyzine HCl (Hydroxyzine Hcl 25 Mg Tablet) 25 mg PO Q6H PRN PRN Reason: Anxiety Magnesium Hydroxide (Milk Of Magnesia 30 Ml Oral.Susp) 30 ml PO DAILY PRN PRN Reason: Constipation Metformin HCl (Metformin Hcl Er 500 Mg Tab.Er.24h) 500 mg PO BEDTIME [facility] Last Admin: 10/28/23 20:40 Dose: Not Given Multivitamins/Vitamin C (Multivitamin Tablet) 1 tab PO DAILY [facility] Last Admin: 10/29/23 09:35 Dose: 1 tab Pyridoxine HCl (Pyridoxine Hcl (Vitamin B6) 50 Mg Tablet) 100 mg PO DAILY [facility] Last Admin: 10/29/23 09:34 Dose: 100 mg Trazodone HCl (Trazodone Hcl 50 Mg Tablet) 50 mg PO BEDTIME MRX1 PRN PRN Reason: Insomnia Vitamin D (Cholecalciferol (Vitamin D3) 25 Mcg Tablet) 50 mcg PO DAILY [facility] Last Admin: 10/29/23 09:35 Dose: 50 mcg Allergies Allergies Allergy/AdvReac Type Severity Reaction Status Date / Time No Known Allergies Allergy Verified 09/30/23 10:26 Assessment & Plan Assessment & Plan (1) Schizophrenia, paranoid type: Status: Acute Code(s): F20.0 - Paranoid schizophrenia Plan 10/28: offer outpt medications despite pt's avowal of refusal. 10/29: per RN, pt took meds last night. irritable, psychotic today. continue current mgmt. Reason for continued inpatient stay Substantial Risk for: inability to function and rapid decompensation Time Spent With Patient Time: Total time managing care of this patient today __25__ minutes.
[2023-10-29 19:42] VITALS: BP 118/57; PULSE 74; RESP 16; TEMP 36.7; O2SAT 95
[2023-10-29] MEDS: metFORMIN HCl ER 500 MG TAB.ER.24H PO (22:33)
[2023-10-29] MEDS: Atorvastatin Calcium 80 MG TABLET PO (22:33)
[2023-10-29] MEDS: HaloperidoL 5 MG TABLET 10 MG PO (22:33)
[2023-10-30 08:05] VITALS: BP 134/63; PULSE 98; RESP 16; TEMP 36.3; O2SAT 96
[2023-10-30 08:15] LABS: Glucose, Whole Blood 120 mg/dL (60-115)
[2023-10-30] MEDS: Multivitamin TABLET 1 TAB PO (09:14)
[2023-10-30] MEDS: HaloperidoL 5 MG TABLET PO (09:14)
[2023-10-30] MEDS: Benztropine Mesylate 0.5 MG TABLET PO (09:15)
[2023-10-30] MEDS: Cholecalciferol (Vitamin D3) 25 MCG TABLET 50 MCG PO (09:15)
[2023-10-30] MEDS: Pyridoxine HCl (Vitamin B6) 50 MG TABLET 100 MG PO (09:15)
--- NOTE | 2023-10-30 12:03 | HO.PSYCHPN ---
Subjective Subjective Date of Service: 10/30/23 Reason For Visit: si paranoia Subjective Notes: Conditional Voluntary Interim History: Pt guarded, initially declining to speak with this poem writer. She states she is fine She reports hearing voices of God telling her what is going to happen. She continues to report that she is with the messiah this poem writer communicated results which she does not believe to be true. then asks this poem writer to leave. Review of Systems Review of Systems Constitutional : No Weight loss, No Fever, No Chills, No Night Sweats, No Fatigue, No Malaise ENT/Mouth : No Hearing loss, No Ear Pain, No Nasal Congestion, No Sinus Pain, No Hoarseness, No sore throat, No Rhinorrhea, No Swallowing Difficulty Eyes: No Eye Pain, No Swelling, No Redness, No Foreign Body, No Discharge, No Vision Changes Cardiovascular : No Chest Pain, No SOB, No Dyspnea on Exertion, No Orthopnea, No Edema, No Palpitations Respiratory : No Cough, No Sputum, No Wheezing, No Smoke Exposure, No Dyspnea Gastrointestinal : No Nausea, No Vomiting, No Diarrhea, No Constipation, No abdominal Pain, No Hematochezia, No Melena Genitourinary : no irregular bleeding, No Dysuria, No Urinary Frequency, No Hematuria, No Urinary Incontinence, No Urgency, No Flank Pain, No Urinary Flow Changes, No Hesitancy Musculoskeletal : No joint pain, No Myalgias, No Joint Swelling Skin : No Skin Lesions, No rash Neuro : No Weakness, No Numbness, No Paresthesias, No Loss of Consciousness, No Dizziness, No Headache Psych : Anxious, patient believes that God is talking to her, patient also believes she is with the son of God Heme/Lymph: No Bruising, No Bleeding,No Lymphadenopathy Endocrine : No Polyuria, No Polydipsia, No Temperature Intolerance Mental Status Exam Mental Status Exam Narrative: sunglasses, swaddled in blanket, street clothes underneath. begrudgingly and very temporarily cooperative, no PMA/PMR. speech somewhat increased in rate and amount, nml loudness, decr latency. thoughts linear, illogical, with paranoid delusions. affect constricted, hyper-intense, min-labile, irritable. mood good. no SI/HI/AVH expressed. Diagnostics Vital Signs (24Hr): Vital Signs - 24 hr 10/29/23 19:42 10/30/23 08:05 Temperature 98.0 F 97.3 F Pulse Rate 74 98 Respiratory Rate 16 16 Blood Pressure 118/57 L 134/63 Pulse Oximetry 95 96 Oxygen Delivery Method Room Air Room Air BMI result Body Mass Index 27.3 Labs 10/26/23 06:26 10/28/23 08:20 Labs: Laboratory Results - last 48 hr 10/29/23 10/29/23 10/30/23 08:10 13:55 08:11 POC Glucose 127 H 120 H Urine Test NEGATIVE Medications Medications Current Medications Acetaminophen (Acetaminophen 325 Mg Tablet) 650 mg PO Q6H PRN PRN Reason: Headache/Pain Mild Scale (1-3) Al Hydroxide/Mg Hydroxide (Magnesium Hydrox/Alum Hydrox 30 Ml Oral.Susp) 30 ml PO Q6H PRN PRN Reason: Heartburn/Nausea Atorvastatin Calcium (Atorvastatin Calcium 80 Mg Tablet) 80 mg PO BEDTIME [facility] Last Admin: 10/29/23 22:33 Dose: 80 mg Benztropine Mesylate (Benztropine Mesylate 0.5 Mg Tablet) 0.5 mg PO BID [facility] Last Admin: 10/30/23 09:15 Dose: 0.5 mg Clonazepam (Clonazepam 1 Mg Tablet) 1 mg PO BEDTIME PRN PRN Reason: anxiety Last Admin: 10/26/23 20:58 Dose: 1 mg Doxepin HCl (Doxepin Hcl 25 Mg Capsule) 50 mg PO BEDTIME [facility] Last Admin: 10/29/23 22:34 Dose: Not Given Haloperidol (Haloperidol 5 Mg Tablet) 5 mg PO DAILY [facility] Last Admin: 10/30/23 09:14 Dose: 5 mg Haloperidol (Haloperidol 5 Mg Tablet) 10 mg PO BEDTIME [facility] Last Admin: 10/29/23 22:33 Dose: 10 mg Hydrocortisone (Hydrocortisone 1 % Cream 28.35 Gm Tube) 1 appl TOPICAL BID PRN; Protocol PRN Reason: Hemorrhoids Hydroxyzine HCl (Hydroxyzine Hcl 25 Mg Tablet) 25 mg PO Q6H PRN PRN Reason: Anxiety Magnesium Hydroxide (Milk Of Magnesia 30 Ml Oral.Susp) 30 ml PO DAILY PRN PRN Reason: Constipation Metformin HCl (Metformin Hcl Er 500 Mg Tab.Er.24h) 500 mg PO BEDTIME [facility] Last Admin: 10/29/23 22:33 Dose: 500 mg Multivitamins/Vitamin C (Multivitamin Tablet) 1 tab PO DAILY [facility] Last Admin: 10/30/23 09:14 Dose: 1 tab Pyridoxine HCl (Pyridoxine Hcl (Vitamin B6) 50 Mg Tablet) 100 mg PO DAILY [facility] Last Admin: 10/30/23 09:15 Dose: 100 mg Trazodone HCl (Trazodone Hcl 50 Mg Tablet) 50 mg PO BEDTIME MRX1 PRN PRN Reason: Insomnia Vitamin D (Cholecalciferol (Vitamin D3) 25 Mcg Tablet) 50 mcg PO DAILY [facility] Last Admin: 10/30/23 09:15 Dose: 50 mcg Allergies Allergies Allergy/AdvReac Type Severity Reaction Status Date / Time No Known Allergies Allergy Verified 09/30/23 10:26 Assessment & Plan Assessment & Plan (1) Schizophrenia, paranoid type: Status: Acute Code(s): F20.0 - Paranoid schizophrenia Plan 10/28: offer outpt medications despite pt's avowal of refusal. 10/29: per RN, pt took meds last night. irritable, psychotic today. continue current mgmt. 10/30 continue tx. Reason for continued inpatient stay Substantial Risk for: inability to function Time Spent With Patient Time: Total time managing care of this patient today ____ minutes.
[2023-10-30] MEDS: HaloperidoL 5 MG TABLET 10 MG PO (22:29)
[2023-10-30] MEDS: Atorvastatin Calcium 80 MG TABLET PO (22:30)
[2023-10-30] MEDS: metFORMIN HCl ER 500 MG TAB.ER.24H PO (22:30)
[2023-10-30] MEDS: Doxepin HCl 25 MG CAPSULE 50 MG PO (22:30)
[2023-10-30 22:36] VITALS: RESP 16
[2023-10-31 07:25] VITALS: BP 123/62; PULSE 77; RESP 22; TEMP 36.2; O2SAT 97
[2023-10-31 08:06] LABS: Glucose, Whole Blood 111 mg/dL (60-115)
[2023-10-31] MEDS: Pyridoxine HCl (Vitamin B6) 50 MG TABLET 100 MG PO (08:42)
[2023-10-31] MEDS: HaloperidoL 5 MG TABLET PO (08:42)
[2023-10-31] MEDS: Benztropine Mesylate 0.5 MG TABLET PO ×2 (08:42→21:07)
[2023-10-31] MEDS: Multivitamin TABLET 1 TAB PO (08:42)
[2023-10-31] MEDS: Cholecalciferol (Vitamin D3) 25 MCG TABLET 50 MCG PO (08:43)
[2023-10-31] MEDS: Acetaminophen 325 MG TABLET 650 MG PO (09:16)
--- NOTE | 2023-10-31 15:09 | HO.PSYCHPN ---
Subjective Subjective Date of Service: 10/31/23 Reason For Visit: si paranoia Interim History: Pt continues to present as guarded. She reports she does not like the room where she is staying and does not feel safe there. She also states she does not like the mattress, but then states she is okay sleeping on floor in sensory room. Continues to present as internally preoccupied, intermittently taking medications. no insight into illness or need for treatment. Review of Systems Review of Systems Constitutional : No Weight loss, No Fever, No Chills, No Night Sweats, No Fatigue, No Malaise ENT/Mouth : No Hearing loss, No Ear Pain, No Nasal Congestion, No Sinus Pain, No Hoarseness, No sore throat, No Rhinorrhea, No Swallowing Difficulty Eyes: No Eye Pain, No Swelling, No Redness, No Foreign Body, No Discharge, No Vision Changes Cardiovascular : No Chest Pain, No SOB, No Dyspnea on Exertion, No Orthopnea, No Edema, No Palpitations Respiratory : No Cough, No Sputum, No Wheezing, No Smoke Exposure, No Dyspnea Gastrointestinal : No Nausea, No Vomiting, No Diarrhea, No Constipation, No abdominal Pain, No Hematochezia, No Melena Genitourinary : no irregular bleeding, No Dysuria, No Urinary Frequency, No Hematuria, No Urinary Incontinence, No Urgency, No Flank Pain, No Urinary Flow Changes, No Hesitancy Musculoskeletal : No joint pain, No Myalgias, No Joint Swelling Skin : No Skin Lesions, No rash Neuro : No Weakness, No Numbness, No Paresthesias, No Loss of Consciousness, No Dizziness, No Headache Psych : Anxious, patient believes that God is talking to her, patient also believes she is with the son of God Heme/Lymph: No Bruising, No Bleeding,No Lymphadenopathy Endocrine : No Polyuria, No Polydipsia, No Temperature Intolerance Mental Status Exam Mental Status Exam Narrative: sunglasses, swaddled in blanket, street clothes underneath. begrudgingly and very temporarily cooperative, no PMA/PMR. speech somewhat increased in rate and amount, nml loudness, decr latency. thoughts linear, illogical, with paranoid delusions. affect constricted, hyper-intense, min-labile, irritable. mood good. no SI/HI/AVH expressed. Diagnostics Vital Signs (24Hr): Vital Signs - 24 hr 10/30/23 22:36 10/31/23 07:25 Temperature 97.2 F Pulse Rate 77 Respiratory Rate 16 22 H Blood Pressure 123/62 Pulse Oximetry 97 Oxygen Delivery Method Room Air BMI result Body Mass Index 27.3 Labs 10/26/23 06:26 10/28/23 08:20 Labs: Laboratory Results - last 48 hr 10/30/23 10/31/23 08:11 07:59 POC Glucose 120 H 111 Medications Medications Current Medications Acetaminophen (Acetaminophen 325 Mg Tablet) 650 mg PO Q6H PRN PRN Reason: Headache/Pain Mild Scale (1-3) Last Admin: 10/31/23 09:16 Dose: 650 mg Al Hydroxide/Mg Hydroxide (Magnesium Hydrox/Alum Hydrox 30 Ml Oral.Susp) 30 ml PO Q6H PRN PRN Reason: Heartburn/Nausea Atorvastatin Calcium (Atorvastatin Calcium 80 Mg Tablet) 80 mg PO BEDTIME [facility] Last Admin: 10/30/23 22:30 Dose: 80 mg Benztropine Mesylate (Benztropine Mesylate 0.5 Mg Tablet) 0.5 mg PO BID [facility] Last Admin: 10/31/23 08:42 Dose: 0.5 mg Clonazepam (Clonazepam 1 Mg Tablet) 1 mg PO BEDTIME PRN PRN Reason: anxiety Last Admin: 10/26/23 20:58 Dose: 1 mg Doxepin HCl (Doxepin Hcl 25 Mg Capsule) 50 mg PO BEDTIME [facility] Last Admin: 10/30/23 22:30 Dose: 50 mg Haloperidol (Haloperidol 5 Mg Tablet) 5 mg PO DAILY [facility] Last Admin: 10/31/23 08:42 Dose: 5 mg Haloperidol (Haloperidol 5 Mg Tablet) 10 mg PO BEDTIME [facility] Last Admin: 10/30/23 22:29 Dose: 10 mg Hydrocortisone (Hydrocortisone 1 % Cream 28.35 Gm Tube) 1 appl TOPICAL BID PRN; Protocol PRN Reason: Hemorrhoids Hydroxyzine HCl (Hydroxyzine Hcl 25 Mg Tablet) 25 mg PO Q6H PRN PRN Reason: Anxiety Magnesium Hydroxide (Milk Of Magnesia 30 Ml Oral.Susp) 30 ml PO DAILY PRN PRN Reason: Constipation Metformin HCl (Metformin Hcl Er 500 Mg Tab.Er.24h) 500 mg PO BEDTIME [facility] Last Admin: 10/30/23 22:30 Dose: 500 mg Multivitamins/Vitamin C (Multivitamin Tablet) 1 tab PO DAILY [facility] Last Admin: 10/31/23 08:42 Dose: 1 tab Pyridoxine HCl (Pyridoxine Hcl (Vitamin B6) 50 Mg Tablet) 100 mg PO DAILY [facility] Last Admin: 10/31/23 08:42 Dose: 100 mg Trazodone HCl (Trazodone Hcl 50 Mg Tablet) 50 mg PO BEDTIME MRX1 PRN PRN Reason: Insomnia Vitamin D (Cholecalciferol (Vitamin D3) 25 Mcg Tablet) 50 mcg PO DAILY [facility] Last Admin: 10/31/23 08:43 Dose: 50 mcg Allergies Allergies Allergy/AdvReac Type Severity Reaction Status Date / Time No Known Allergies Allergy Verified 09/30/23 10:26 Assessment & Plan Assessment & Plan (1) Schizophrenia, paranoid type: Status: Acute Code(s): F20.0 - Paranoid schizophrenia Plan 10/28: offer outpt medications despite pt's avowal of refusal. 10/29: per RN, pt took meds last night. irritable, psychotic today. continue current mgmt. 10/30 continue tx. 10/31 continue tx. Reason for continued inpatient stay Substantial Risk for: inability to function Time Spent With Patient Time: Total time managing care of this patient today ____ minutes.
[2023-10-31 20:10] VITALS: BP 121/58; PULSE 79; RESP 16; TEMP 36.3; O2SAT 97
[2023-10-31] MEDS: HaloperidoL 5 MG TABLET 10 MG PO (21:06)
[2023-10-31] MEDS: metFORMIN HCl ER 500 MG TAB.ER.24H PO (21:07)
[2023-10-31] MEDS: Atorvastatin Calcium 80 MG TABLET PO (21:08)
[2023-11-01 07:30] VITALS: BP 116/57; PULSE 78; RESP 16; TEMP 36.1; O2SAT 96
[2023-11-01 07:42] LABS: Glucose, Whole Blood 100 mg/dL (60-115)
[2023-11-01] MEDS: Multivitamin TABLET 1 TAB PO (08:18)
[2023-11-01] MEDS: HaloperidoL 5 MG TABLET PO (08:18)
[2023-11-01] MEDS: Cholecalciferol (Vitamin D3) 25 MCG TABLET 50 MCG PO (08:18)
[2023-11-01] MEDS: Benztropine Mesylate 0.5 MG TABLET PO ×2 (08:19→20:58)
[2023-11-01] MEDS: Pyridoxine HCl (Vitamin B6) 50 MG TABLET 100 MG PO (08:19)
[2023-11-01] MEDS: Acetaminophen 325 MG TABLET 650 MG PO (09:00)
--- NOTE | 2023-11-01 16:10 | HO.PSYCHPN ---
Subjective Subjective Date of Service: 11/01/23 Reason For Visit: si paranoia Interim History: terse, stand-offish. denies any problems, has no complaints. presents a facade of indifference. endorsing AH of god. per staff, not attending groups. denies anx/dep. +AH. believes she is . Mental Status Exam Mental Status Exam Narrative: sunglasses, swaddled in blanket, street clothes underneath. begrudgingly cooperative, no PMA/PMR. speech somewhat increased in rate, decr amount, nml loudness, nml latency. thoughts linear, illogical, with paranoid delusions. affect constricted, hyper-intense, non-labile, irritable. mood good. +AH. no SI/HI/VH expressed. Diagnostics Vital Signs (24Hr): Vital Signs - 24 hr 10/31/23 20:10 11/01/23 07:30 Temperature 97.3 F 97.0 F Pulse Rate 79 78 Respiratory Rate 16 16 Blood Pressure 121/58 L 116/57 L Pulse Oximetry 97 96 Oxygen Delivery Method Room Air Room Air BMI result Body Mass Index 27.3 Labs 10/26/23 06:26 10/28/23 08:20 Labs: Laboratory Results - last 48 hr 10/31/23 11/01/23 07:59 07:35 POC Glucose 111 100 Medications Medications Current Medications Acetaminophen (Acetaminophen 325 Mg Tablet) 650 mg PO Q6H PRN PRN Reason: Headache/Pain Mild Scale (1-3) Last Admin: 11/01/23 09:00 Dose: 650 mg Al Hydroxide/Mg Hydroxide (Magnesium Hydrox/Alum Hydrox 30 Ml Oral.Susp) 30 ml PO Q6H PRN PRN Reason: Heartburn/Nausea Atorvastatin Calcium (Atorvastatin Calcium 80 Mg Tablet) 80 mg PO BEDTIME [facility] Last Admin: 10/31/23 21:08 Dose: 80 mg Benztropine Mesylate (Benztropine Mesylate 0.5 Mg Tablet) 0.5 mg PO BID [facility] Last Admin: 11/01/23 08:19 Dose: 0.5 mg Clonazepam (Clonazepam 1 Mg Tablet) 1 mg PO BEDTIME PRN PRN Reason: anxiety Last Admin: 10/26/23 20:58 Dose: 1 mg Doxepin HCl (Doxepin Hcl 25 Mg Capsule) 50 mg PO BEDTIME [facility] Last Admin: 10/31/23 21:51 Dose: Not Given Haloperidol (Haloperidol 5 Mg Tablet) 5 mg PO DAILY [facility] Last Admin: 11/01/23 08:18 Dose: 5 mg Haloperidol (Haloperidol 5 Mg Tablet) 10 mg PO BEDTIME [facility] Last Admin: 10/31/23 21:06 Dose: 10 mg Hydrocortisone (Hydrocortisone 1 % Cream 28.35 Gm Tube) 1 appl TOPICAL BID PRN; Protocol PRN Reason: Hemorrhoids Hydroxyzine HCl (Hydroxyzine Hcl 25 Mg Tablet) 25 mg PO Q6H PRN PRN Reason: Anxiety Magnesium Hydroxide (Milk Of Magnesia 30 Ml Oral.Susp) 30 ml PO DAILY PRN PRN Reason: Constipation Metformin HCl (Metformin Hcl Er 500 Mg Tab.Er.24h) 500 mg PO BEDTIME [facility] Last Admin: 10/31/23 21:07 Dose: 500 mg Multivitamins/Vitamin C (Multivitamin Tablet) 1 tab PO DAILY [facility] Last Admin: 11/01/23 08:18 Dose: 1 tab Pyridoxine HCl (Pyridoxine Hcl (Vitamin B6) 50 Mg Tablet) 100 mg PO DAILY [facility] Last Admin: 11/01/23 08:19 Dose: 100 mg Trazodone HCl (Trazodone Hcl 50 Mg Tablet) 50 mg PO BEDTIME MRX1 PRN PRN Reason: Insomnia Vitamin D (Cholecalciferol (Vitamin D3) 25 Mcg Tablet) 50 mcg PO DAILY [facility] Last Admin: 11/01/23 08:18 Dose: 50 mcg Allergies Allergies Allergy/AdvReac Type Severity Reaction Status Date / Time No Known Allergies Allergy Verified 09/30/23 10:26 Assessment & Plan Assessment & Plan (1) Schizophrenia, paranoid type: Status: Acute Code(s): F20.0 - Paranoid schizophrenia Plan 10/28: offer outpt medications despite pt's avowal of refusal. 10/29: per RN, pt took meds last night. irritable, psychotic today. continue current mgmt. 10/30 continue tx. 10/31 continue tx. 11/01: remains as per last week. continue current mgmt. T/C mood stabilizer. Reason for continued inpatient stay Substantial Risk for: inability to function and rapid decompensation Time Spent With Patient Time: Total time managing care of this patient today ____ minutes.
[2023-11-01 20:30] VITALS: BP 130/63; PULSE 73; RESP 14; TEMP 36.3; O2SAT 98
[2023-11-01] MEDS: HaloperidoL 5 MG TABLET 10 MG PO (20:57)
[2023-11-01] MEDS: metFORMIN HCl ER 500 MG TAB.ER.24H PO (20:57)
[2023-11-01] MEDS: Doxepin HCl 25 MG CAPSULE 50 MG PO (20:57)
[2023-11-01] MEDS: Atorvastatin Calcium 80 MG TABLET PO (20:57)
--- NOTE | 2023-11-01 22:08 | PC.NURSE ---
t/w took out HS haldol 10 mg x2 but only returned one 5 mg tablet VS 2 tablets. pharmacy notified. to waste one 5 mg tablet. patient did receive her total 10 mg dose at HS
[2023-11-02 08:30] VITALS: BP 126/59; PULSE 82; RESP 16; TEMP 36.2; O2SAT 99
[2023-11-02 08:35] LABS: Glucose, Whole Blood 93 mg/dL (60-115)
[2023-11-02] MEDS: Cholecalciferol (Vitamin D3) 25 MCG TABLET 50 MCG PO (08:46)
[2023-11-02] MEDS: HaloperidoL 5 MG TABLET PO (08:46)
[2023-11-02] MEDS: Multivitamin TABLET 1 TAB PO (08:47)
[2023-11-02] MEDS: Benztropine Mesylate 0.5 MG TABLET PO ×2 (08:47→21:11)
[2023-11-02] MEDS: Pyridoxine HCl (Vitamin B6) 50 MG TABLET 100 MG PO (08:48)
--- NOTE | 2023-11-02 11:20 | P.DS_ITS ---
DS: Providers Provider Date of Service: 11/02/23 Date of admission: 10/27/23 21:58 Primary care physician: DAO Escobedo DS: Diagnosis Discharge Diagnosis (1) Schizophrenia, paranoid type: Status: Acute DS: Medications Discharge Medications Home Medications: Home Medications Medication Instructions Recorded Confirmed atorvastatin 80 mg tablet 1 tab PO BEDTIME 05/07/21 10/26/23 cholecalciferol (vitamin D3) 50 1 cap PO DAILY 05/07/21 10/26/23 mcg (2,000 unit) capsule clonazepam 1 mg tablet 1 - 2 tab PO BEDTIME PRN anxiety 05/07/21 10/26/23 benztropine 0.5 mg tablet 0.5 mg PO BID 10/26/23 10/26/23 doxepin 25 mg capsule 25 - 50 mg PO BEDTIME 10/26/23 10/26/23 haloperidol 5 mg tablet 5 mg PO DAILY 10/26/23 10/26/23 haloperidol 5 mg tablet 10 mg PO BEDTIME 10/26/23 10/26/23 hydrocortisone 1 % topical cream 1 appl [place] BID PRN Hemorrhoids 10/26/23 10/26/23 metformin 500 mg tablet,extended 500 mg PO QPM 10/26/23 10/26/23 release 24 hr multivitamin 1 tab PO DAILY 10/26/23 10/26/23 Previous Rx's Medication Instructions Recorded pyridoxine (vitamin B6) 100 mg 100 mg PO DAILY 90 days #90 tabs 06/25/23 tablet Mental Status Exam Mental Status Exam Narrative: sunglasses, swaddled in blanket, street clothes underneath. begrudgingly cooperative, no PMA/PMR. speech somewhat increased in rate, decr amount, nml loudness, nml latency. thoughts linear, illogical, with paranoid delusions. affect constricted, hyper-intense, non-labile, irritable. mood good. +AH. no SI/HI/VH expressed. Data Data Completed and Pending Completed studies during hospitalization [Text1]: 10/26/23 10/28/23 10/29/23 19:14 08:20 08:10 Sodium 143 Potassium 4.7 D Chloride 103 Carbon Dioxide 29 Anion Gap 16 BUN 20 H Creatinine 0.95 Estim Creat Clear Calc 64.9 Estimated GFR > 60 POC Glucose 127 H Fasting Glucose 210 H Calcium 10.4 H Total Bilirubin 0.6 AST 17 ALT 18 Alkaline Phosphatase 77 Total Protein 7.6 Albumin 4.7 Triglycerides 129 Cholesterol 251 H LDL Cholesterol, Calc 172 H HDL Cholesterol 54 Urine Test COVID-19 ([facility]) Negative COVID-19 [employer] [facility] See Note 10/29/23 10/30/23 10/31/23 13:55 08:11 07:59 Sodium Potassium Chloride Carbon Dioxide Anion Gap BUN Creatinine Estim Creat Clear Calc Estimated GFR POC Glucose 120 H 111 Fasting Glucose Calcium Total Bilirubin AST ALT Alkaline Phosphatase Total Protein Albumin Triglycerides Cholesterol LDL Cholesterol, Calc HDL Cholesterol Urine Test NEGATIVE COVID-19 ([facility]) COVID-[facility] 11/01/23 11/02/23 07:35 08:31 Sodium Potassium Chloride Carbon Dioxide Anion Gap BUN Creatinine Estim Creat Clear Calc Estimated GFR POC Glucose 100 93 Fasting Glucose Calcium Total Bilirubin AST ALT Alkaline Phosphatase Total Protein Albumin Triglycerides Cholesterol LDL Cholesterol, Calc HDL Cholesterol Urine Test COVID-19 ([facility]) COVID-19 [facility] 10/26/23 Unknown Urine clean catch - Urine max top Urine Culture - Final No growth. DS: Summary Time Spent with Patient Time attestation: Total time managing care of this patient today ____ minutes. Discharge Plan Discharge Referrals: Charlotte Laureano, PAINTING 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 [Primary Care Provider] - 1 Week Discharge Medications: No Action atorvastatin 80 mg tablet 1 tab PO BEDTIME clonazepam 1 mg tablet 1 - 2 tab PO BEDTIME PRN (Reason: anxiety) cholecalciferol (vitamin D3) 50 mcg (2,000 unit) capsule 1 cap PO DAILY multivitamin Tablet 1 tab PO DAILY benztropine 0.5 mg tablet 0.5 mg PO BID haloperidol 5 mg tablet 5 mg PO DAILY hydrocortisone 1 % cream 1 appl [place] BID PRN (Reason: Hemorrhoids) haloperidol 5 mg tablet 10 mg PO BEDTIME doxepin 25 mg capsule 25 - 50 mg PO BEDTIME metformin 500 mg tablet extended release 24 hr 500 mg PO QPM pyridoxine (vitamin B6) 100 mg tablet 100 mg PO DAILY 90 Days Qty: 90 3RF
[2023-11-02] MEDS: Lithium Carbonate ER 450 MG TABLET.ER PO ×2 (11:49→21:10)
--- NOTE | 2023-11-02 15:39 | HO.PSYCHPN ---
Subjective Subjective Date of Service: 11/02/23 Reason For Visit: si paranoia Interim History: seen with RN and muffler tender. calm, cooperative. denies any problems. states the medications have been helpful for her since admission by helping her calm down and sleep. denies AH of god. declines to try mood stabilizer, informs her he will Rx anyway and she can refuse. would like to discharge , tentative plan made for . per staff, dep/anx. flat, agitated, visible. taking meds, religiously preoccupied. slept about 8 hours. Mental Status Exam Mental Status Exam Narrative: sunglasses, swaddled in blanket, street clothes underneath. cooperative, no PMA/PMR. speech somewhat increased in rate, decr amount, nml loudness, nml latency. thoughts linear, illogical, with delusions. affect constricted, hyper-intense, non-labile. mood good. no AH. no SI/HI/VH expressed. Diagnostics Vital Signs (24Hr): Vital Signs - 24 hr 11/01/23 20:30 11/02/23 08:30 Temperature 97.3 F 97.2 F Pulse Rate 73 82 Respiratory Rate 14 16 Blood Pressure 130/63 126/59 L Pulse Oximetry 98 99 Oxygen Delivery Method Room Air Room Air BMI result Body Mass Index 27.3 Labs 10/26/23 06:26 10/28/23 08:20 Labs: Laboratory Results - last 48 hr 11/01/23 11/02/23 07:35 08:31 POC Glucose 100 93 Medications Medications Current Medications Acetaminophen (Acetaminophen 325 Mg Tablet) 650 mg PO Q6H PRN PRN Reason: Headache/Pain Mild Scale (1-3) Last Admin: 11/01/23 09:00 Dose: 650 mg Al Hydroxide/Mg Hydroxide (Magnesium Hydrox/Alum Hydrox 30 Ml Oral.Susp) 30 ml PO Q6H PRN PRN Reason: Heartburn/Nausea Atorvastatin Calcium (Atorvastatin Calcium 80 Mg Tablet) 80 mg PO BEDTIME [facility] Last Admin: 11/01/23 20:57 Dose: 80 mg Benztropine Mesylate (Benztropine Mesylate 0.5 Mg Tablet) 0.5 mg PO BID [facility] Last Admin: 11/02/23 08:47 Dose: 0.5 mg Clonazepam (Clonazepam 1 Mg Tablet) 1 mg PO BEDTIME PRN PRN Reason: anxiety Last Admin: 10/26/23 20:58 Dose: 1 mg Doxepin HCl (Doxepin Hcl 25 Mg Capsule) 50 mg PO BEDTIME [facility] Last Admin: 11/01/23 20:57 Dose: 50 mg Haloperidol (Haloperidol 5 Mg Tablet) 5 mg PO DAILY [facility] Last Admin: 11/02/23 08:46 Dose: 5 mg Haloperidol (Haloperidol 5 Mg Tablet) 10 mg PO BEDTIME [facility] Last Admin: 11/01/23 20:57 Dose: 10 mg Hydrocortisone (Hydrocortisone 1 % Cream 28.35 Gm Tube) 1 appl TOPICAL BID PRN; Protocol PRN Reason: Hemorrhoids Hydroxyzine HCl (Hydroxyzine Hcl 25 Mg Tablet) 25 mg PO Q6H PRN PRN Reason: Anxiety [place] Carbonate ([place] Carbonate Er 450 Mg Tablet.Er) 450 mg PO BID [facility] Last Admin: 11/02/23 11:49 Dose: 450 mg Magnesium Hydroxide (Milk Of Magnesia 30 Ml Oral.Susp) 30 ml PO DAILY PRN PRN Reason: Constipation Metformin HCl (Metformin Hcl Er 500 Mg Tab.Er.24h) 500 mg PO BEDTIME [facility] Last Admin: 11/01/23 20:57 Dose: 500 mg Multivitamins/Vitamin C (Multivitamin Tablet) 1 tab PO DAILY [facility] Last Admin: 11/02/23 08:47 Dose: 1 tab Pyridoxine HCl (Pyridoxine Hcl (Vitamin B6) 50 Mg Tablet) 100 mg PO DAILY [facility] Last Admin: 11/02/23 08:48 Dose: 100 mg Trazodone HCl (Trazodone Hcl 50 Mg Tablet) 50 mg PO BEDTIME MRX1 PRN PRN Reason: Insomnia Vitamin D (Cholecalciferol (Vitamin D3) 25 Mcg Tablet) 50 mcg PO DAILY [facility] Last Admin: 11/02/23 08:46 Dose: 50 mcg Allergies Allergies Allergy/AdvReac Type Severity Reaction Status Date / Time No Known Allergies Allergy Verified 09/30/23 10:26 Assessment & Plan Assessment & Plan (1) Schizophrenia, paranoid type: Status: Acute Code(s): F20.0 - Paranoid schizophrenia Plan 10/28: offer outpt medications despite pt's avowal of refusal. 10/29: per RN, pt took meds last night. irritable, psychotic today. continue current mgmt. 10/30 continue tx. 10/31 continue tx. 11/01: remains as per last week. continue current mgmt. T/C mood stabilizer. 11/02: less irritable today, denies AH. feels medications helped her calm down and sleep better. will Rx lithium 450 BID and pt encouraged to take. planning for discharge. Reason for continued inpatient stay Substantial Risk for: inability to function and rapid decompensation Time Spent With Patient Time: Total time managing care of this patient today __35__ minutes.
[2023-11-02 20:05] VITALS: BP 126/66; PULSE 72; RESP 16; TEMP 36.3; O2SAT 99
[2023-11-02] MEDS: Atorvastatin Calcium 80 MG TABLET PO (21:10)
[2023-11-02] MEDS: HaloperidoL 5 MG TABLET 10 MG PO (21:10)
[2023-11-02] MEDS: metFORMIN HCl ER 500 MG TAB.ER.24H PO (21:10)
[2023-11-03 06:00] VITALS: BP 110/67; PULSE 88; RESP 16; TEMP 36.1; O2SAT 98
[2023-11-03 07:44] LABS: Glucose, Whole Blood 98 mg/dL (60-115)
[2023-11-03] MEDS: Cholecalciferol (Vitamin D3) 25 MCG TABLET 50 MCG PO (08:28)
[2023-11-03] MEDS: Pyridoxine HCl (Vitamin B6) 50 MG TABLET 100 MG PO (08:28)
[2023-11-03] MEDS: Multivitamin TABLET 1 TAB PO (08:28)
[2023-11-03] MEDS: HaloperidoL 5 MG TABLET PO (08:28)
[2023-11-03] MEDS: Lithium Carbonate ER 450 MG TABLET.ER PO ×2 (08:29→21:59)
[2023-11-03] MEDS: Benztropine Mesylate 0.5 MG TABLET PO ×2 (08:29→22:00)
--- NOTE | 2023-11-03 10:48 | P.PNPSI_ITS ---
Subjective Subjective Date of Service: 11/03/23 Reason For Visit: si paranoia Subjective Notes: Conditional Voluntary Interim History: Pt reports hearing voices of God, but states mostly voices telling her that everything will be okay. She states she is not as she thought confirmed by negative test. She slept most of the night. No behavioral concerns. Review of Systems Review of Systems Constitutional : No Weight loss, No Fever, No Chills, No Night Sweats, No Fatigue, No Malaise ENT/Mouth : No Hearing loss, No Ear Pain, No Nasal Congestion, No Sinus Pain, No Hoarseness, No sore throat, No Rhinorrhea, No Swallowing Difficulty Eyes: No Eye Pain, No Swelling, No Redness, No Foreign Body, No Discharge, No Vision Changes Cardiovascular : No Chest Pain, No SOB, No Dyspnea on Exertion, No Orthopnea, No Edema, No Palpitations Respiratory : No Cough, No Sputum, No Wheezing, No Smoke Exposure, No Dyspnea Gastrointestinal : No Nausea, No Vomiting, No Diarrhea, No Constipation, No abdominal Pain, No Hematochezia, No Melena Genitourinary : no irregular bleeding, No Dysuria, No Urinary Frequency, No Hematuria, No Urinary Incontinence, No Urgency, No Flank Pain, No Urinary Flow Changes, No Hesitancy Musculoskeletal : No joint pain, No Myalgias, No Joint Swelling Skin : No Skin Lesions, No rash Neuro : No Weakness, No Numbness, No Paresthesias, No Loss of Consciousness, No Dizziness, No Headache Psych : Anxious, patient believes that God is talking to her, patient also believes she is with the son of God Heme/Lymph: No Bruising, No Bleeding,No Lymphadenopathy Endocrine : No Polyuria, No Polydipsia, No Temperature Intolerance Mental Status Exam Mental Status Exam Narrative: sunglasses, swaddled in blanket, street clothes underneath. cooperative, no PMA/PMR. speech somewhat increased in rate, decr amount, nml loudness, nml latency. thoughts linear, illogical, with delusions. affect constricted, hyper-intense, non-labile. mood good. no AH. no SI/HI/VH expressed. Diagnostics Vital Signs (24Hr): Vital Signs - 24 hr 11/02/23 20:05 11/03/23 06:00 Temperature 97.3 F 96.9 F Pulse Rate 72 88 Respiratory Rate 16 16 Blood Pressure 126/66 110/67 Pulse Oximetry 99 98 Oxygen Delivery Method Room Air Room Air BMI result Body Mass Index 27.3 Labs 10/26/23 06:26 10/28/23 08:20 Labs: Laboratory Results - last 48 hr 11/02/23 11/03/23 08:31 07:37 POC Glucose 93 98 Medications Medications Current Medications Acetaminophen (Acetaminophen 325 Mg Tablet) 650 mg PO Q6H PRN PRN Reason: Headache/Pain Mild Scale (1-3) Last Admin: 11/01/23 09:00 Dose: 650 mg Al Hydroxide/Mg Hydroxide (Magnesium Hydrox/Alum Hydrox 30 Ml Oral.Susp) 30 ml PO Q6H PRN PRN Reason: Heartburn/Nausea Atorvastatin Calcium (Atorvastatin Calcium 80 Mg Tablet) 80 mg PO BEDTIME [facility] Last Admin: 11/02/23 21:10 Dose: 80 mg Benztropine Mesylate (Benztropine Mesylate 0.5 Mg Tablet) 0.5 mg PO BID [facility] Last Admin: 11/03/23 08:29 Dose: 0.5 mg Clonazepam (Clonazepam 1 Mg Tablet) 1 mg PO BEDTIME PRN PRN Reason: anxiety Last Admin: 10/26/23 20:58 Dose: 1 mg Doxepin HCl (Doxepin Hcl 25 Mg Capsule) 50 mg PO BEDTIME [facility] Last Admin: 11/02/23 21:12 Dose: Not Given Haloperidol (Haloperidol 5 Mg Tablet) 5 mg PO DAILY [facility] Last Admin: 11/03/23 08:28 Dose: 5 mg Haloperidol (Haloperidol 5 Mg Tablet) 10 mg PO BEDTIME [facility] Last Admin: 11/02/23 21:10 Dose: 10 mg Hydrocortisone (Hydrocortisone 1 % Cream 28.35 Gm Tube) 1 appl TOPICAL BID PRN; Protocol PRN Reason: Hemorrhoids Hydroxyzine HCl (Hydroxyzine Hcl 25 Mg Tablet) 25 mg PO Q6H PRN PRN Reason: Anxiety Overly Carbonate (Overly Carbonate Er 450 Mg Tablet.Er) 450 mg PO BID [facility] Last Admin: 11/03/23 08:29 Dose: 450 mg Magnesium Hydroxide (Milk Of Magnesia 30 Ml Oral.Susp) 30 ml PO DAILY PRN PRN Reason: Constipation Metformin HCl (Metformin Hcl Er 500 Mg Tab.Er.24h) 500 mg PO BEDTIME [facility] Last Admin: 11/02/23 21:10 Dose: 500 mg Multivitamins/Vitamin C (Multivitamin Tablet) 1 tab PO DAILY [facility] Last Admin: 11/03/23 08:28 Dose: 1 tab Pyridoxine HCl (Pyridoxine Hcl (Vitamin B6) 50 Mg Tablet) 100 mg PO DAILY [facility] Last Admin: 11/03/23 08:28 Dose: 100 mg Trazodone HCl (Trazodone Hcl 50 Mg Tablet) 50 mg PO BEDTIME MRX1 PRN PRN Reason: Insomnia Vitamin D (Cholecalciferol (Vitamin D3) 25 Mcg Tablet) 50 mcg PO DAILY [facility] Last Admin: 11/03/23 08:28 Dose: 50 mcg Allergies Allergies Allergy/AdvReac Type Severity Reaction Status Date / Time No Known Allergies Allergy Verified 09/30/23 10:26 Assessment & Plan Assessment & Plan (1) Schizophrenia, paranoid type: Status: Acute Code(s): F20.0 - Paranoid schizophrenia Plan 10/28: offer outpt medications despite pt's avowal of refusal. 10/29: per RN, pt took meds last night. irritable, psychotic today. continue current mgmt. 10/30 continue tx. 10/31 continue tx. 11/01: remains as per last week. continue current mgmt. T/C mood stabilizer. 11/02: less irritable today, denies AH. feels medications helped her calm down and sleep better. will Rx lithium 450 BID and pt encouraged to take. planning for discharge. 11/03 continue tx. Reason for continued inpatient stay Substantial Risk for: inability to function Time Spent With Patient Time: Total time managing care of this patient today ____ minutes.
[2023-11-03 19:56] VITALS: BP 118/67; PULSE 70; RESP 16; TEMP 36.2; O2SAT 97
[2023-11-03] MEDS: metFORMIN HCl ER 500 MG TAB.ER.24H PO (21:59)
[2023-11-03] MEDS: Atorvastatin Calcium 80 MG TABLET PO (21:59)
[2023-11-03] MEDS: HaloperidoL 5 MG TABLET 10 MG PO (21:59)
[2023-11-04 08:30] VITALS: BP 117/52; PULSE 76; RESP 18; TEMP 36.2; O2SAT 96
[2023-11-04 08:48] LABS: Creatinine Clr Calc Pharmacy 79.3; Estimated Glomerular Filt Rate > 60
[2023-11-04] MEDS: Cholecalciferol (Vitamin D3) 25 MCG TABLET 50 MCG PO (09:24)
[2023-11-04] MEDS: Pyridoxine HCl (Vitamin B6) 50 MG TABLET 100 MG PO (09:24)
[2023-11-04] MEDS: Multivitamin TABLET 1 TAB PO (09:24)
[2023-11-04] MEDS: Lithium Carbonate ER 450 MG TABLET.ER PO (09:24)
[2023-11-04] MEDS: HaloperidoL 5 MG TABLET PO (09:24)
[2023-11-04] MEDS: Benztropine Mesylate 0.5 MG TABLET PO (09:24)
[2023-11-04 12:23] LABS: Lithium 0.76 mmol/L (0.60-1.20)
[2023-11-04 12:32] LABS: Anion Gap 13 (12-20); Blood Urea Nitrogen 11 mg/dL (9-16); Calcium 10.6 mg/dL (8.4-10.2); Carbon Dioxide 31 mmol/L (22-29); Chloride 105 mmol/L (96-108); Creatinine Clr Calc Pharmacy 72.8; Estimated Glomerular Filt Rate > 60; Glucose Random 91 mg/dL (60-115); Potassium 4.6 mmol/L (3.3-5.1); Sodium 144 mmol/L (135-145)
[2023-11-04 12:42] LABS: HIV AB/AG Nonreactive (Nonreactive); HIV Num 1 0.04 S/CO (0.00-0.99)
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
== END 2023-11-04 13:55 | disposition home or self-care (01) | DRG 750 ==
LOC: HO.ED 10-27 12:21 → HO.PADLT16 10-27 23:12 → HO.S3 11-10 08:30
PROVIDERS: Admitting Provider Psychiatry & Neurology Psychiatry; Emergency Provider Emergency Medicine; PCP Registered Nurse; Visit Provider Psychiatry & Neurology Psychiatry
DX: F20.0 Paranoid schizophrenia (principal); E11.9 Type 2 diabetes mellitus without complications; Z91.52 Personal history of nonsuicidal self-harm; E78.00 Pure hypercholesterolemia, unspecified; F17.210 Nicotine dependence, cigarettes, uncomplicated; Z71.6 Tobacco abuse counseling; Z20.822 Contact with and (suspected) exposure to COVID-19; Z79.84 Long term (current) use of oral hypoglycemic drugs; Z79.899 Other long term (current) drug therapy
CPT/HCPCS: 36415; 80048; 80053; 80061; 80076; 80178; 80307; 81001; 81025; 82565; 82947; 85025; 87086; 87389; 87635; 93005; 99285; S9485

== ENCOUNTER → 2023-10-26 19:07 | Outpatient (BNV) | payer MEDICAID, SELFPAY | PROVIDERS: Emergency Provider Emergency Medicine; Visit Provider Internal Medicine | DX: F29 Unspecified psychosis not due to a substance or known physiological condition (principal) | CPT/HCPCS: 93010 ==

== ENCOUNTER → 2023-10-27 21:58 | Outpatient (BNV) | payer OTHER, SELFPAY | PROVIDERS: Admitting Provider Psychiatry & Neurology Psychiatry; Emergency Provider Emergency Medicine; PCP Registered Nurse; Visit Provider Psychiatry & Neurology Psychiatry | DX: F20.0 Paranoid schizophrenia (principal) | CPT/HCPCS: 99231; 99232; 99233 ==

== ENCOUNTER 2023-11-16 10:07 | Outpatient (REF) | payer MEDICAID, SELFPAY ==
[2023-11-16 12:02] LABS: Lithium 0.76 mmol/L (0.60-1.20)
[2023-11-16 12:04] LABS: Parathyroid Hormone Intact 80.8 pg/mL (8.7-77.1)
[2023-11-16 12:06] LABS: Alanine Aminotransferase 17 U/L (0-31); Albumin Level 4.7 g/dL (3.5-5.0); Alkaline Phosphatase 82 U/L (39-117); Anion Gap 17 (12-20); Aspartate Amino Transferase 16 U/L (5-31); Bilirubin Total 0.5 mg/dL (0.0-1.0); Blood Urea Nitrogen 11 mg/dL (9-16); Calcium 10.1 mg/dL (8.4-10.2); Carbon Dioxide 23 mmol/L (22-29); Chloride 104 mmol/L (96-108); Estimated Glomerular Filt Rate > 60; Glucose Random 110 mg/dL (60-115); Phosphorus 3.7 mg/dL (2.7-4.5); Potassium 4.1 mmol/L (3.3-5.1); Sodium 140 mmol/L (135-145); Thyroid Stimulating Hormone 2.01 uIU/mL (0.32-4.0); Total Protein 7.4 g/dL (6.5-8.0)
== END 2023-11-16 10:08 | disposition home or self-care (01) ==
LOC: HO.HHCL 10:07
PROVIDERS: Referring Provider Registered Nurse; Visit Provider Internal Medicine
DX: F31.9 Bipolar disorder, unspecified (principal); F20.0 Paranoid schizophrenia; E83.52 Hypercalcemia; Z79.899 Other long term (current) drug therapy
CPT/HCPCS: 36415; 80053; 80178; 83970; 84100; 84436; 84443

== ENCOUNTER 2023-11-25 08:36 | Outpatient (REF) | payer OTHER, SELFPAY | END 2023-11-25 08:37 | disposition home or self-care (01) | LOC: HO.HHCL 08:36 | PROVIDERS: Visit Provider Registered Nurse | DX: E21.3 Hyperparathyroidism, unspecified (principal) | CPT/HCPCS: 36415; 82306 ==

== ENCOUNTER 2023-12-03 10:20 | Emergency (ER) | payer MEDICAID, SELFPAY ==
[2023-12-03 10:29] VITALS: BP 112/72; PULSE 68; O2SAT 99
[2023-12-03 10:49] VITALS: BP 115/78; PULSE 94; RESP 18; TEMP 36.9; O2SAT 98; BMI 28.9
[2023-12-03 10:55] LABS: Appearance Urine Clear; Color Urine Yellow; Glucose Urine UA Negative (Negative); Leukocyte Esterase Urine Moderate (2+) (Negative); Nitrite Urine Negative (Negative); PH 6.5 (5.0-9.0); Specific Gravity - Urine <= 1.005 (1.005-1.025); UMIC TRIGGER UACC YES; Urine Blood Negative (Negative); Urine Ketones Negative (Negative); Urine Protein Negative (Neg-Trace)
[2023-12-03 10:57] LABS: Bacteria Urine 2+ (None Seen); Hyaline Casts Urine 0-2 /LPF (0-2); RBC Urine 0-2 /HPF (0-2); UACC Culture Trigger YES
[2023-12-03 11:01] LABS: Amphetamine Screen Urine Not Detected (Not Detect); Barbiturates, Urine Not Detected (Not Detect); Benzodiazepines Screen Urine Not Detected (Not Detect); Cannabinoid Screen Urine Not Detected (Not Detect); Cocaine Screen Urine Not Detected (Not Detect); Fentanyl, urine Not Detected (Not Detect); Opiate Screen Urine Not Detected (Not Detect); Phencyclidine Screen Urine Not Detected (Not Detect)
[2023-12-03 11:08] VITALS: RESP 18
[2023-12-03 12:35] LABS: MANUAL DIFF FLAG NO
[2023-12-03 12:36] LABS: Basophils Percent Auto 0.4 % (0-2); Eosinophils Absolute Auto 0.1 X10*3/uL (0.0-0.4); Eosinophils Percent Auto 0.8 % (0-4); Hematocrit 44.2 % (37.0-47.0); Hemoglobin 14.6 g/dl (12.0-16.0); Imm Gran Abs Auto 0.02 X10*3/uL (0.00-0.03); Imm Gran Pct Auto 0.3 % (0.0-0.4); Lymphocytes Absolute Auto 1.6 X10*3/uL (1.2-4.9); Lymphocytes Percent Auto 20.7 % (20-40); Mean Corpuscular Volume 87.9 fL (80.0-98.0); Mean Platelet Volume 10.3 fL (9.4-12.3); Monocytes Absolute Auto 0.4 X10*3/uL (0.1-1.2); Monocytes Percent Auto 4.9 % (2-11); Neutrophils Absolute Auto 5.5 x10*3/uL (2.0-8.3); Neutrophils Percent Auto 72.9 % (45-73); Platelet Count 247 X10*3/uL (160-400); Red Blood Count 5.03 X10*6/uL (4.20-5.50); Red Cell Distribution Width 12.7 % (11.0-16.0); White Blood Count 7.5 X10*3/uL (4.8-10.8)
[2023-12-03 12:51] LABS: Anion Gap 15 (12-20); Blood Urea Nitrogen 9 mg/dL (9-16); Calcium 10.1 mg/dL (8.4-10.2); Carbon Dioxide 26 mmol/L (22-29); Chloride 107 mmol/L (96-108); Creatinine Clr Calc Pharmacy 73.8; Estimated Glomerular Filt Rate > 60; Ethanol < 10 mg/dL; Glucose Random 117 mg/dL (60-115); Magnesium 2.2 mg/dL (1.6-2.6); Potassium 4.2 mmol/L (3.3-5.1); Sodium 144 mmol/L (135-145)
--- NOTE | 2023-12-03 14:25 | ED_ITS ---
HPI - Anxiety General Chief Complaint: Anxiety Stated Complaint: PSYCH ISSUES Time Seen by Provider: 12/03/23 12:49 Source: patient and EMS Mode of arrival: EMS Limitations: other (Poor historian appears paranoid) History of Present Illness HPI narrative: This is a 58-year-old female history of schizophrenia, paranoid type, presenting to the emergency department via ambulance patient tells me she called the ambulance on herself me she just did not feel right she is feeling very anxious and continues to feel anxious she feels like doctor who discharged her from upstairs gave her medications to make her worse instead of better. She says she started new meds 4 days ago and they are not helping. Denies suicidal and homicidal ideation. Denies hallucinations. Denies drugs, alcohol and tobacco. Denies medical complaints at this time Related Data Previous Rx's Medication Instructions Recorded atorvastatin 80 mg tablet 1 tab PO BEDTIME 30 days #30 tabs 11/04/23 benztropine 0.5 mg tablet 0.5 mg PO BID 30 days #60 tabs 11/04/23 cholecalciferol (vitamin D3) 50 1 cap PO DAILY 30 days #30 caps 11/04/23 mcg (2,000 unit) capsule clonazepam 1 mg tablet 1 tab PO BEDTIME PRN anxiety 30 11/04/23 days #30 tabs haloperidol 5 mg tablet 5 mg PO DAILY 30 days #30 tabs 11/04/23 haloperidol 5 mg tablet 10 mg (2 x 5 mg) PO BEDTIME 30 11/04/23 days #60 tabs hydrocortisone 1 % topical cream 1 appl [place] BID PRN Hemorrhoids 30 11/04/23 days #28.35 grams lithium carbonate 450 mg 450 mg PO BID 30 days #60 tabs 11/04/23 tablet,extended release metformin 500 mg tablet,extended 500 mg PO QPM 30 days #30 tabs 11/04/23 release 24 hr multivitamin 1 tab PO DAILY 30 days #30 tabs 11/04/23 pyridoxine (vitamin B6) 100 mg 100 mg PO DAILY 90 days #90 tabs 11/04/23 tablet Allergies Allergy/AdvReac Type Severity Reaction Status Date / Time No Known Allergies Allergy Verified 12/03/23 10:54 Review of Systems 2 Review of Systems: Constitutional : No Weight loss, No Fever, No Chills, No Fatigue, No Malaise ENT/Mouth : No sore throat, No Rhinorrhea Eyes: No Eye Pain, No Swelling, No Redness Cardiovascular : No Chest Pain, No SOB, No Dyspnea on Exertion, No Orthopnea, No Edema, No Palpitations Respiratory : No Cough, No Sputum, No Wheezing Gastrointestinal : No Nausea, No Vomiting, No Diarrhea, No Constipation, No abdominal Pain, No Hematochezia, No Melena Genitourinary : No Dysuria, No Urinary Frequency, No Hematuria, Musculoskeletal : No joint pain, No Myalgias, No Joint Swelling Skin : No Skin Lesions, No rash Neuro : No Weakness, No Numbness, No Dizziness, No Headache Psych : + Anxiety/Panic, No Depression All other systems reviewed and are negative Yes all other systems are reviewed and are negative [facility] Past Medical History Attestation statement: The following information was validated with the patient. Source: old records reviewed and nursing notes reviewed Medical History Paranoid delusion Renal cyst Anxiety Elevated cholesterol Occasional tremors Surgical History Hx of section Hx of tubal ligation Social History Social History Household Members: None Housing: Apartment Do you presently have visiting nurse or other home services: No Alcohol intake: never Patient Tobacco Use Status: Current someday Tobacco user Tobacco use type: Cigarette Smoked in Last 30 Days: No e-Cigarette/Vaping Use: Former Use Second Hand Smoke Exposure: No Use of substances other than those prescribed or required for medical reasons: No Substance Use Type: Caffiene Advance Directives: No Advance Directives Information Provided: No service: No Sexual orientation: Straight/Heterosexual Physical Exam 2 Vital Signs: Vital Signs: Last Vital Signs Temp 98.4 F 12/03/23 10:49 Pulse 94 12/03/23 10:49 Resp 18 12/03/23 11:08 BP 115/78 12/03/23 10:49 Pulse Ox 98 12/03/23 10:49 O2 Del Method Room Air 12/03/23 10:49 BMI result Body Mass Index 28.9 vss Appearance: Alert.? Oriented X3.? No acute distress.?Appears paranoid Head: Normocephalic, atraumatic, no step-offs or deformities Eyes: Pupils equal, round and reactive to light.? Neck: Normal inspection.? Neck supple.? CVS: Normal heart rate and rhythm.? Pulses normal.? Respiratory: No respiratory distress.? Breath sounds normal.? Abdomen: Soft and nontender.? Skin: Skin warm and dry.? Normal skin color.? Normal skin turgor.? Extremities: No lower extremity edema.? No calf ttp. 5/5 strength to bilateral upper and lower extremities Neuro: Oriented X 3.? No motor deficit.? No sensory deficit. CN 2-12 intact Course Reevaluation(s) Reevaluation #1: CBC unremarkable. Chemistry no acute findings requiring intervention. UA with a large amount of epithelial cells, urine is likely contaminated no UTI symptoms will not treat for UTI at this time. Urine toxicology negative. Ethanol negative This time patient will be placed to observation Pending care team evaluation. Time: 14:30 Medical Decision Making Medical Decision Making [facility] Narrative: 1400 58-year-old female presents feeling anxious and appears to be paranoid. Not SI or HI. States her psych meds are not working Physical exam patient appears paranoid otherwise normal Concerns for schizophrenia and paranoia. No reports of suicidal or homicidal ideation. Unlikely metabolic derangements. Will rule out UTI Plan labs, imaging. Differential Diagnosis Differential Diagnoses: The differential diagnosis associated with the presentation includes Concerns for schizophrenia and paranoia. No reports of suicidal or homicidal ideation. Unlikely metabolic derangements. Will rule out UTI Admission/Observation Consideration of admission/observation: Escalation of care including admission/observation considered Possible Consult Healthcare Provider Management of the patient was discussed with: Behavioral Health Provider Lab Data [facility] Lab Attestation statement: I reviewed the patient's lab results. 12/03/23 12:29 12/03/23 12:29 Labs: Lab Results 12/03/23 12/03/23 Range/Units 10:48 12:29 WBC 7.5 (4.8-10.8) X10*3/uL RBC 5.03 (4.20-5.50) X10*6/uL Hgb 14.6 (12.0-16.0) g/dl Hct 44.2 (37.0-47.0) % MCV 87.9 (80.0-98.0) fL MCH 29.0 (27.0-33.0) pg MCHC 33.0 (31.0-35.0) g/dl RDW 12.7 (11.0-16.0) % Plt Count 247 (160-400) X10*3/uL MPV 10.3 (9.4-12.3) fL Immature Gran % (Auto) 0.3 (0.0-0.4) % Neut % (Auto) 72.9 (45-73) % Lymph % (Auto) 20.7 (20-40) % [place] % (Auto) 4.9 (2-11) % Eos % (Auto) 0.8 (0-4) % Baso % (Auto) 0.4 (0-2) % Lymph # (Auto) 1.6 (1.2-4.9) X10*3/uL [place] # (Auto) 0.4 (0.1-1.2) X10*3/uL Eos # (Auto) 0.1 (0.0-0.4) X10*3/uL Baso # (Auto) 0.0 (0.0-0.2) X10*3/uL Abs Immat Gran (auto) 0.02 (0.00-0.03) X10*3/uL Absolute Neuts (auto) 5.5 (2.0-8.3) x10*3/uL Absolute Nucleated RBC 0.000 (0.0-0.012) X10*3/uL Nucleated RBC % (auto) 0.0 (0.0-0.2) /100WBC Sodium 144 (135-145) mmol/L Potassium 4.2 (3.3-5.1) mmol/L Chloride 107 (96-108) mmol/L Carbon Dioxide 26 (22-29) mmol/L Anion Gap 15 (12-20) BUN 9 (9-16) mg/dL Creatinine 0.80 (0.5-1.4) mg/dL Estim Creat Clear Calc 73.8 Estimated GFR > 60 Random Glucose 117 H (60-115) mg/dL Calcium 10.1 (8.4-10.2) mg/dL Magnesium 2.2 (1.6-2.6) mg/dL Urine Color Yellow Urine Appearance Clear Urine pH 6.5 (5.0-9.0) Ur Specific [place] <= 1.005 (1.005-1.025) Urine Protein Negative (Neg-Trace) mg/dL Urine Glucose (UA) Negative (Negative) mg/dL Urine Ketones Negative (Negative) mg/dL Urine Blood Negative (Negative) Urine Nitrite Negative (Negative) Ur Leukocyte Esterase Moderate (2+) H (Negative) Urine RBC 0-2 (0-2) /HPF Urine WBC 11-20 H (0-5) /HPF Ur Squamous Epith Cells 11-20 (0-2) /HPF Urine Bacteria 2+ (None Seen) Hyaline Casts 0-2 (0-2) /LPF Urine Opiates Screen Not Detected (Not Detect) Urine Fentanyl Screen Not Detected (Not Detect) Ur Barbiturates Screen Not Detected (Not Detect) Ur Phencyclidine Scrn Not Detected (Not Detect) Ur Amphetamines Screen Not Detected (Not Detect) U Benzodiazepines Scrn Not Detected (Not Detect) Urine Cocaine Screen Not Detected (Not Detect) U Marijuana (THC) Screen Not Detected (Not Detect) Ethyl Alcohol < 10 mg/dL External Record Review External record reviewed: Inpatient record, Office record, Outpatient record, Prior outpatient labs, Prior outpatient radiology, Primary care record and Outside ED record Critical Care Time Critical Care Time Critical Care Time: No Discharge Plan Discharge Clinical Impression: Acute anxiety Patient Disposition: Still a Patient Prescriptions: No Action lithium carbonate 450 mg Tablet Extended Release 450 mg PO BID 30 Days Qty: 60 0RF multivitamin Tablet 1 tab PO DAILY 30 Days Qty: 30 0RF atorvastatin 80 mg tablet 1 tab PO BEDTIME 30 Days Qty: 30 0RF benztropine 0.5 mg tablet 0.5 mg PO BID 30 Days Qty: 60 0RF haloperidol 5 mg tablet 5 mg PO DAILY 30 Days Qty: 30 0RF haloperidol 5 mg tablet 10 mg PO BEDTIME 30 Days Qty: 60 0RF clonazepam 1 mg tablet 1 tab PO BEDTIME PRN (Reason: anxiety) 30 Days Qty: 30 0RF hydrocortisone 1 % cream 1 appl [place] BID PRN (Reason: Hemorrhoids) 30 Days Qty: 28.35 0RF pyridoxine (vitamin B6) 100 mg tablet 100 mg PO DAILY 90 Days Qty: 90 3RF metformin 500 mg tablet extended release 24 hr 500 mg PO QPM 30 Days Qty: 30 0RF cholecalciferol (vitamin D3) 50 mcg (2,000 unit) capsule 1 cap PO DAILY 30 Days Qty: 30 0RF
[2023-12-03 15:16] LABS: Lithium < 0.10 mmol/L (0.60-1.20)
== END 2023-12-03 17:05 | disposition home or self-care (01) ==
PROVIDERS: Physician Assistant; Physician Assistant Medical; Emergency Provider Emergency Medicine
DX: F41.9 Anxiety disorder, unspecified (principal); F20.0 Paranoid schizophrenia; Z79.899 Other long term (current) drug therapy
CPT/HCPCS: 36415; 80048; 80178; 80307; 81001; 83735; 85025; 87086; 99284; S9485

== ENCOUNTER 2023-12-22 09:29 | Outpatient (REF) | payer OTHER, SELFPAY ==
[2023-12-22 12:17] LABS: Vitamin D 25-OH Total 71.7 ng/mL (>30)
== END 2023-12-22 09:30 | disposition home or self-care (01) ==
LOC: HO.HHCL 09:29
PROVIDERS: Visit Provider Registered Nurse
DX: R79.89 Other specified abnormal findings of blood chemistry (principal)
CPT/HCPCS: 36415; 82306

== ENCOUNTER 2024-01-21 09:31 | Outpatient (REF) | payer MEDICAID, SELFPAY ==
--- NOTE | ~2024-01-21 | MM_ITS ---
EXAMINATION: MM SCREENING DIGITAL BREAST TOMOSYNTHESIS, BILATERAL CLINICAL INFORMATION: Screening. Asymptomatic. COMPARISON: Mammography: This study is compared with prior exams dating back to 2019. TECHNIQUE: Digital breast tomosynthesis is performed in both the craniocaudal and mediolateral oblique views along with computer-aided detection (CAD). Synthesized 2D images are generated from the tomosynthesis. FINDINGS: There are scattered areas of fibroglandular density (ACR BI-RADS breast composition Category b). There are no significant masses, abnormal calcifications, or other abnormalities. There is a tissue marker in the upper outer quadrant of the right breast from prior benign percutaneous biopsy. MM/MM tomosynthesis screening BI IMPRESSION: No mammographic evidence of malignancy. ASSESSMENT: BI-RADS BI-RADS 2 - Benign Findings RECOMMENDATION: Routine annual mammography screening. 1 year F/U This examination should not preclude the clinical evaluation of a suspicious palpable abnormality. This patient's information was entered into a reminder system with a target due date for their next mammogram.
== END 2024-01-21 09:32 | disposition home or self-care (01) ==
LOC: HO.MAMMO 09:31
PROVIDERS: PCP Family Medicine; Visit Provider Family Medicine
DX: Z12.31 Encounter for screening mammogram for malignant neoplasm of breast (principal)
CPT/HCPCS: 77063; 77067

== ENCOUNTER → 2024-01-21 12:00 | Outpatient (BNV) | payer MEDICAID, SELFPAY | PROVIDERS: PCP Family Medicine; Visit Provider Radiology Diagnostic Radiology | DX: Z12.31 Encounter for screening mammogram for malignant neoplasm of breast (principal) | CPT/HCPCS: 77063; 77067 ==

== ENCOUNTER 2024-02-09 09:20 | Outpatient (AMB) | payer MEDICAID, SELFPAY ==
--- NOTE | 2024-02-09 09:50 | A.OFFVIS_ITS ---
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 She is doing well with no concerns. Attempting to eat a healthy diet with calcium and vitamin D and stays active with exercise. Currently sexually active. Denies any vaginal dryness or irritation. STI testing offered; she declines. Last pap smear; 2022. Last mammogram; 2023. Colonoscopy is booked 02/2024. Denies any family history of breast, ovarian or colon cancer. [facility] Medical History Paranoid delusion Renal cyst Anxiety Elevated cholesterol Occasional tremors Surgical History Hx of section Hx of tubal ligation Social History Household Members: None Housing: Apartment Do you presently have visiting nurse or other home services: No Alcohol intake: never Patient Tobacco Use Status: Current someday Tobacco user Tobacco use type: Cigarette e-Cigarette/Vaping Use: Former Use Second Hand Smoke Exposure: No Substance Use Type: Caffiene service: No Sexual orientation: Straight/Heterosexual Female Reproductive History Menstrual control method: permanent sterilization Permanent Sterilization: BTL Total pregnancies: 4 Full term: 4 Number of Living Children: 4 Date of last pap smear: 02/01/24 (neg pap and hpv) Date of Mammogram: 01/20/23 (Birad 2) Review of Systems Const All systems reviewed & are unremarkable except as noted in HPI and below Reports as per HPI Eyes Reports no additional complaints ENT Reports no additional complaints Card Reports no additional complaints Resp Reports no additional complaints GI Reports as per HPI and Reports no additional complaints Reports as per HPI Musc Reports no additional complaints Skin/Breast Reports as per HPI Neuro Reports no additional complaints Psych Reports no additional complaints Endo Reports no additional complaints Adama/Lymph Reports no additional complaints Aller/Immun Reports no additional complaints Physical Exam Vital Signs: Last Vital Signs BP 116/76 02/09/24 10:05 BMI result Body Mass Index 28.2 Const General: cooperative, healthy appearing, no acute distress, well developed and alert Orientation/consciousness: patient oriented x3 HEENT Head: Yes normal to inspection Eyes General: appearance normal, both eyes and all related structures Neck Neck: Yes normal visual inspection Thyroid: Thyroid normal Chest Chest palpation & inspection: normal inspection of the chest and other (no puckering, dimpling, peau de orange, retraction, discharge, masses) Breast/axilla inspection: normal inspection of the breasts Breast/axilla palpation: normal palpation of the breasts Resp Effort & Inspection: normal respiratory effort GI Inspection: Yes normal to inspection Palpation (GI): Soft to palpation Rectal Exam - Female: deferred General: Yes bladder normal to palpation External Female Exam: normal external appearance and normal appearance of the urethra Speculum Exam - Vagina: normal appearance of the vagina, normal palpation, normal vaginal discharge and vagina atrophic Speculum Exam - Cervix: normal appearance of the cervix and normal palpation Bimanual exam- vagina & uterus: normal bimanual exam, normal palpation, uterine size normal, bladder normal to palpation, normal palpation and non-tender Bimanual Exam- Adnexa, other: no masses Skin General skin exam: no rashes or lesions noted Rashes: no rashes Neuro General: patient oriented x3 Cognition (Neuro): normal cognition Extrem General: Yes normal to inspection Psych Attitude: cooperative Thought process: Normal thought process present Assessment & Plan Assessment & Plan (1) Encounter for well woman exam with routine gynecological exam: Code(s): Z01.419 - Encounter for gynecological examination (general) (routine) without abnormal findings Plan Discussed: Current recommendations for pap smears per ASCCP guidelines. Breast awareness, periodic self breast exams and yearly mammogram. Maintain a healthy lifestyle, well balanced diet including Calcium 1,200 mg and Vitamin D 600 IU daily, and routine exercise. Use of condoms for STI if indicated. Contact the office with any postmenopausal bleeding. Patient verbalizes understanding and agrees to the plan of care. She was given opportunity to ask questions and all questions were answered to the best of my ability. RTO in 1 year for annual obstetrics and gynecology professor exam. This note is constructed using voice recognition software. While every effort has been made to ensure accuracy, hematology nurse errors may have been included. Coding Level of Care Code Est Pt Prev Care 40-64y(87038) Diagnoses Encounter for well woman exam with routine gynecological exam Z01.419
[2024-02-09 10:05] VITALS: BP 116/76; BMI 28.2
== END 2024-02-09 10:42 | disposition home or self-care (01) ==
LOC: HO.HWS 09:20
PROVIDERS: PCP Family Medicine; Visit Provider Advanced Practice Midwife
DX: Z01.419 Encounter for gynecological examination (general) (routine) without abnormal findings (principal)
CPT/HCPCS: 99396

== ENCOUNTER → 2024-02-09 09:20 | Outpatient (BNVA) | payer MEDICAID, SELFPAY | PROVIDERS: PCP Family Medicine; Visit Provider Advanced Practice Midwife | DX: Z01.419 Encounter for gynecological examination (general) (routine) without abnormal findings (principal) | CPT/HCPCS: 99396 ==

== ENCOUNTER 2024-04-10 07:55 | Outpatient (REF) | payer MEDICAID, SELFPAY ==
--- NOTE | ~2024-04-10 | US_ITS ---
EXAMINATION: US RETROPERITONEAL LIMITED (RENAL ONLY) CLINICAL INFORMATION: Personal history of urinary calculi. COMPARISON: CT scan abdomen and pelvis 06/03/2023 TECHNIQUE: Real-time ultrasound of the kidneys. Somewhat technically limited by rapid respiration rate and some motion artifact FINDINGS: RIGHT KIDNEY: 10.4 x 3.5 x 4.9 cm (SAG x AP x TRV). The kidney is normal in size, contour, and echogenicity. Renal cortical thickness is normal. No calculi. No hydronephrosis. 0.9 x 0.8 x 0.8 cm upper pole cyst is seen, no imaging follow-up is recommended. LEFT KIDNEY: 10.1 x 4.0 x 4.6 cm (SAG x AP x TRV). The kidney is normal in size, contour, and echogenicity. Renal cortical thickness is normal. No calculi or focal parenchymal lesions. No hydronephrosis. US/US renal BI IMPRESSION: No calculi or hydronephrosis.
== END 2024-04-10 07:56 | disposition home or self-care (01) ==
LOC: HO.US 07:55
PROVIDERS: PCP Family Medicine; Visit Provider Urology
DX: Z87.442 Personal history of urinary calculi (principal)
CPT/HCPCS: 76775

== ENCOUNTER 2024-04-28 09:09 | Outpatient (AMB) | payer MEDICAID, SELFPAY ==
--- NOTE | 2024-04-28 09:10 | MHC.OFFVIS ---
Vital Signs 04/28/24 09:22 Height 5 ft 3 in Weight 153 lb 14.122 oz BMI 27.3 BP 114/62 Blood Pressure Location Rt brachial Position Sitting Pulse 98 Pulse Source Pulse Oximeter Pulse Oximetry (%) 100 Oxygen Delivery Method Room Air Intake Visit Reasons: rectal bleeding Intake Note: Itzel presents in office today for a scheduled initial assessment visit. CC; Pt reports that they are experiencing hematochezia/melena. Pt reports that this is their only sx. They deny any n/v, constipation, diarrhea, etc. Pt states that they are seeing small amount of blood that is somewhat bright red in color. Pt is unable to provide any addtional information regarding their findings. Pt states that this happened 1-2 times in the past few months. Carpentry Foreman Required: Yes Carpentry Foreman Services: Carpentry Foreman Present Carpentry Foreman Name: [id number] Kellen Information Interpreted: non-clinical & clinical Accompanied by: Self / Same As Patient Allergies No Known Allergies Allergy (Verified 04/28/24 09:10) HPI HPI rectal bleeding: Details: 58-year-old female with past medical history of kidney stones, schizophrenia, anxiety, hypercholesteremia, diabetes is here today for initial consultation. Patient has been having blood in his stools frequently after bowel movements. In the past few weeks her symptoms are better, however patient reports that last month on several occasions she had blood in her stool as well as when wiping after bowel movements. Patient denies any melena. Last colonoscopy in 2014. Patient was diagnosed with internal hemorrhoids in the past. Patient did use stool softeners in the past with good results. Patient reports no associated abdominal pain, however she does admit to occasional cramping in the left lower quadrant specially when she has to have a bowel movement. Patient denies any dyspepsia, dysphagia or odynophagia. Denies any weight loss or ribbon like stools. Patient denies any family history of colorectal cancer. Admits to being constipated [facility] Medical History Paranoid delusion Renal cyst Anxiety Elevated cholesterol Occasional tremors Surgical History Hx of section Hx of tubal ligation Social History Household Members: None Housing: Apartment Do you presently have visiting nurse or other home services: No Alcohol intake: never Patient Tobacco Use Status: Current someday Tobacco user Tobacco use type: Cigarette e-Cigarette/Vaping Use: Former Use Second Hand Smoke Exposure: No Substance Use Type: Caffiene service: No Sexual orientation: Straight/Heterosexual Review of Systems Const Denies weight gain and Denies weight loss ENT Reports no additional complaints, Denies dysphagia and Denies odynophagia Card Reports no additional complaints Resp Reports no additional complaints GI Denies abdominal pain, Denies belching, Denies melena, Denies bloating, Denies change in bowel habits, Denies dysphagia, Denies excessive flatus, Denies dyspepsia, Denies heartburn, Denies diarrhea, Denies loose stools, Denies nausea, Denies odynophagia and Denies vomiting Musc Reports no additional complaints Neuro Reports no additional complaints Psych Reports no additional complaints Endo Reports no additional complaints Physical Exam Vital Signs: Last Vital Signs Pulse 98 04/28/24 09:22 BP 114/62 04/28/24 09:22 Pulse Ox 100 04/28/24 09:22 Oxygen Delivery Method Room Air 04/28/24 09:22 BMI result Body Mass Index 27.3 Const General: healthy appearing, no acute distress and well developed Nutritional Appearance: well nourished Orientation/consciousness: patient oriented x3 Resp Effort & Inspection: normal respiratory effort, able to speak in complete sentences, no tracheal deviation and symmetric chest movement Auscultation: clear to auscultation bilaterally Cardio Rate: regular rate GI Inspection: Yes normal to inspection and No distended Palpation (GI): Soft to palpation, not firm, nontender and No hepatosplenomegaly present Auscultation: normal bowel sounds General: Yes no CVA tenderness Back/Spine/Pelvis Back: no CVA tenderness Skin General skin exam: elasticity normal, turgor normal and dry skin Neuro General: patient oriented x3 Psych Appearance: grossly normal Mental Status: mental status grossly normal Assessment & Plan Assessment & Plan (1) Rectal bleed: Code(s): K62.5 - Hemorrhage of anus and rectum (2) Constipation: Code(s): K59.00 - Constipation, unspecified Qualifiers: Constipation type: slow transit constipation Qualified Code(s): K59.01 - Slow transit constipation Plan Patient will start taking stool softener. Increase fluid intake and activity to promote better bowel motility. Patient will be sent for colonoscopy I will see patient in 8 weeks to see improvement. Patient is agreeable to this plan and verbalizes understanding of instructions. She was given the opportunity to ask questions and all questions answered. Thank you for allowing me to participate in her care Medications: New bisacodyl (Dulcolax (bisacodyl)) take 4 tabs at noon the day before your colonoscopy 20 mg (4 x 5 mg) PO ONCE 4 tabs 0RF 1 day Z12.11 - Encounter for screening for malignant neoplasm of colon polyethylene glycol 3350 (Miralax) As directed by gastroenterology department at [facility] 238 grams PO ONCE 238 grams 0RF Z12.11 - Encounter for screening for malignant neoplasm of colon docusate sodium 100 mg PO BEDTIME 90 caps 3RF K59.00 - Constipation, unspecified Coding Level of Care Code New Pt Level 3 (69950) Diagnoses Rectal bleed K62.5 Slow transit constipation K59.01 Constipation type: slow transit constipation Time Spent (min) 40 Comment 30 minutes spent with patient and additional 10 minutes spent reviewing her records
[2024-04-28 09:22] VITALS: BP 114/62; PULSE 98; O2SAT 100; BMI 27.3
== END 2024-04-28 09:52 | disposition home or self-care (01) ==
LOC: HO.HGI 09:09
PROVIDERS: PCP Family Medicine; Visit Provider Nurse Practitioner Family
DX: K62.5 Hemorrhage of anus and rectum (principal); K59.01 Slow transit constipation
CPT/HCPCS: 99203

== ENCOUNTER → 2024-04-28 09:09 | Outpatient (BNVA) | payer MEDICAID, SELFPAY | PROVIDERS: PCP Family Medicine; Visit Provider Nurse Practitioner Family | DX: K59.01 Slow transit constipation (principal); K62.5 Hemorrhage of anus and rectum; R10.30 Lower abdominal pain, unspecified | CPT/HCPCS: 99212 ==

== ENCOUNTER 2024-05-15 09:13 | Outpatient (REF) | payer MEDICAID, SELFPAY ==
[2024-05-15 11:20] LABS: MANUAL DIFF FLAG NO
[2024-05-15 11:31] LABS: Hematocrit 43.1 % (37.0-47.0); Hemoglobin 14.6 g/dl (12.0-16.0); Mean Corpuscular HGB Conc 33.9 g/dl (31.0-35.0); Mean Corpuscular Hemoglobin 29.9 pg (27.0-33.0); Mean Corpuscular Volume 88.3 fL (80.0-98.0); Red Blood Count 4.88 X10*6/uL (4.20-5.50); Red Cell Distribution Width 13.2 % (11.0-16.0); White Blood Count 7.9 X10*3/uL (4.8-10.8)
[2024-05-15 11:32] LABS: Basophils Absolute Auto 0.1 X10*3/uL (0.0-0.2); Basophils Percent Auto 0.6 % (0-2); Eosinophils Absolute Auto 0.1 X10*3/uL (0.0-0.4); Eosinophils Percent Auto 1.1 % (0-4); Imm Gran Abs Auto 0.03 X10*3/uL (0.00-0.03); Imm Gran Pct Auto 0.4 % (0.0-0.4); Lymphocytes Absolute Auto 2.2 X10*3/uL (1.2-4.9); Lymphocytes Percent Auto 27.7 % (20-40); Mean Platelet Volume 10.7 fL (9.4-12.3); Monocytes Absolute Auto 0.6 X10*3/uL (0.1-1.2); Neutrophils Percent Auto 63.2 % (45-73); Platelet Count 271 X10*3/uL (160-400)
[2024-05-15 11:58] LABS: Parathyroid Hormone Intact 64.8 pg/mL (8.7-77.1)
[2024-05-15 12:07] LABS: Anion Gap 13 (12-20); Blood Urea Nitrogen 8 mg/dL (9-16); Calcium 9.9 mg/dL (8.4-10.2); Carbon Dioxide 28 mmol/L (22-29); Chloride 102 mmol/L (96-108); Estimated Glomerular Filt Rate > 60; Glucose Random 113 mg/dL (60-115); Potassium 4.1 mmol/L (3.3-5.1); Sodium 139 mmol/L (135-145)
[2024-05-15 12:11] LABS: TSH reflex Free T4 1.24 uIU/mL (0.32-4.0); Vitamin D 25-OH Total 83.8 ng/mL (>30)
[2024-05-16 14:43] LABS: Calcium, Ionized 5.2 mg/dL (4.7-5.5)
== END 2024-05-15 09:14 | disposition home or self-care (01) ==
LOC: HO.HHCL 09:13
PROVIDERS: Visit Provider Registered Nurse
DX: R79.89 Other specified abnormal findings of blood chemistry (principal); R63.4 Abnormal weight loss
CPT/HCPCS: 36415; 80048; 82306; 82330; 83970; 84443; 85025

== ENCOUNTER 2024-05-23 18:20 | Outpatient (REF) | payer MEDICAID, SELFPAY | END 2024-05-23 18:21 | disposition home or self-care (01) | LOC: HO.HHCLNP 18:20 | PROVIDERS: Visit Provider Emergency Medicine | DX: R58 Hemorrhage, not elsewhere classified (principal) | CPT/HCPCS: 87086 ==

== ENCOUNTER 2024-06-19 13:13 | Outpatient (AMB) | payer MEDICAID, SELFPAY ==
--- NOTE | 2024-06-19 13:23 | MHC.OFFVIS ---
Intake Visit Reasons: 1y/US(set) Intake Note: Patient presents for follow up today on: kidney stones and ultrasound results Imaging Completed: 04/10/24 Urology Medications:none Blood Thinner: none Vocational Technical Education Teacher Required: Yes Vocational Technical Education Teacher Services: Vocational Technical Education Teacher Present Vocational Technical Education Teacher Name: [id number] Accompanied by: Self / Same As Patient Allergies No Known Allergies Allergy (Verified 06/19/24 13:35) Medication List - Last Reconciled 06/19/24 by SUZANNA Mauricio atorvastatin 1 tab PO BEDTIME 30 days benztropine 0.5 mg PO BID 30 days bisacodyl (Dulcolax (bisacodyl)) 20 mg (4 x 5 mg) PO ONCE 1 day cholecalciferol (vitamin D3) 1 cap PO DAILY 30 days clonazepam 1 tab PO BEDTIME PRN 30 days docusate sodium 100 mg PO BEDTIME doxepin 25 - 50 mg PO BEDTIME fluticasone propionate 50 mcg/actuation 1 - 2 sprays intranasal QAM haloperidol 5 mg PO DAILY 30 days haloperidol 10 mg PO BEDTIME hydrocortisone 1% 1 appl [place] BID PRN 30 days lithium carbonate ER 450 mg PO BID 30 days metformin ER 500 mg PO QPM 30 days multivitamin 1 tab PO DAILY 30 days polyethylene glycol 3350 (Miralax) 238 grams PO ONCE pyridoxine (vitamin B6) 100 mg PO DAILY 90 days HPI Comments Details: Itzel is a very pleasant 59-year-old Uzbek-speaking female patient. She has a past medical history of renal cysts, nephrolithiasis, anxiety, hypercholesteremia, paranoid delusions/schizophrenia, and occasional tremors. She presents to the office today for follow-up of her nephrolithiasis. In discussion with the patient today she reports since her last office visit here approximately 1 year ago she has had no bothersome urinary issues or concerns. Recent renal imaging results reviewed with the patient today. Bilateral kidneys with no hydronephrosis or renal calculi. Right kidney with 0.9 upper pole cyst that requires no imaging follow-up per radiology report. She currently denies any bothersome urinary issues or concerns. She denies urinary urgency, urinary frequency, incontinence, nocturia, hematuria, dysuria, foul smelling urine, changes to urinary stream, flank pain, fever, and or chills. She is happy with her current voiding parameters. Patient with a previous history of a right-sided ESWL with Dr. Nobles 05/31. She otherwise offers no other issues or concerns at this time. [facility] Medical History Paranoid delusion Renal cyst Anxiety Elevated cholesterol Occasional tremors Surgical History Hx of section Hx of tubal ligation Social History Household Members: None Housing: Apartment Do you presently have visiting nurse or other home services: No Alcohol intake: never Patient Tobacco Use Status: Current someday Tobacco user Tobacco use type: Cigarette e-Cigarette/Vaping Use: Former Use Second Hand Smoke Exposure: No Substance Use Type: Caffiene service: No Sexual orientation: Straight/Heterosexual Review of Systems Const All systems reviewed & are unremarkable except as noted in HPI and below Physical Exam Const General: cooperative, healthy appearing, comfortable, no acute distress, well developed, alert and awake Orientation/consciousness: patient oriented x3 Limitations: no limitations HEENT Head: Yes normal to inspection, Yes normocephalic and Yes atraumatic Ears: hearing grossly normal bilaterally Eyes General: appearance normal, both eyes and all related structures Neck Neck: Yes normal visual inspection and Yes trachea midline Chest Chest palpation & inspection: normal inspection of the chest Resp Effort & Inspection: normal respiratory effort and able to speak in complete sentences Cardio Rate: regular rate GI Inspection: Yes normal to inspection General: Yes no CVA tenderness Back/Spine/Pelvis Back: no CVA tenderness Skin General skin exam: no rashes or lesions noted Neuro General: patient oriented x3 Extrem General: Yes normal to inspection Psych Appearance: grossly normal and well kempt Mental Status: mental status grossly normal Speech and movement: Normal speech and movement present and Clear speech present Affect: normal affect Attitude: cooperative Thought process: Normal thought process present Thought content: Normal thought content present Insight: Fair insight present (Psych) Judgement: Fair judgement present (Psych) Results Reviewed Results Reviewed: Date of Service: 04/10/24 EXAMINATION: US RETROPERITONEAL LIMITED (RENAL ONLY) FINDINGS: RIGHT KIDNEY: 10.4 x 3.5 x 4.9 cm (SAG x AP x TRV). The kidney is normal in size, contour, and echogenicity. Renal cortical thickness is normal. No calculi. No hydronephrosis. 0.9 x 0.8 x 0.8 cm upper pole cyst is seen, no imaging follow-up is recommended. LEFT KIDNEY: 10.1 x 4.0 x 4.6 cm (SAG x AP x TRV). The kidney is normal in size, contour, and echogenicity. Renal cortical thickness is normal. No calculi or focal parenchymal lesions. No hydronephrosis. IMPRESSION: No calculi or hydronephrosis. Assessment & Plan Assessment & Plan (1) Nephrolithiasis: Code(s): N20.0 - Calculus of kidney Category: Medical (2) Renal cyst: Code(s): N28.1 - Cyst of kidney, acquired Category: Medical Plan Unable to obtain urine for urinalysis Recent renal imaging results reviewed with the patient today; as noted above. Stable renal cysts. Discussed at length potential causes of renal cysts as well as nephrolithiasis. Discussed, educated, and stressed the importance of continuing to drink adequate amount of water for nephrolithiasis as well as overall health and well-being. Continue adding 1 oz of lemon juice to water daily. Patient currently denies any bothersome urinary issues or concerns. She reports be happy with current voiding parameters. Will obtain renal ultrasound in 1 year. Follow-up in 1 year with imaging to be completed prior; or sooner with any issues, concerns, and or questions Orders: Orders US renal BI 1 Year N20.0 - Calculus of kidney, N28.1 - Cyst of kidney, acquired Patient Instructions: The patient had an opportunity to ask questions regarding the treatment plan. All questions were answered. Physical exam, labs, and imaging were discussed and reviewed in detail. As well as risks, benefits, and discussion of treatment choices. No major barriers to understanding were identified. The patient expressed understanding and agreement with the above treatment plan. The patient was made aware they should contact our office by phone for worsening of their current condition, the appearance of new symptoms, or with any questions or concerns. Compliance is encouraged with any medications and follow up testing that is ordered. It is a privilege to be allowed the opportunity to participate in? your urological care.? Again, if you have any questions or concerns If you have any questions or concerns please do not hesitate to contact me. The office is [phone]. This note is constructed using voice recognition software. While every effort has been made to ensure accuracy claims support specialist errors may have been included. Yours sincerely, DAO Mauricio-MYLES Coding Level of Care Code Est Pt Level 3 (22639) Diagnoses Nephrolithiasis N20.0 Renal cyst N28.1
== END 2024-06-19 13:50 | disposition home or self-care (01) ==
PROVIDERS: Visit Provider Nurse Practitioner Family
DX: N20.0 Calculus of kidney (principal); N28.1 Cyst of kidney, acquired
CPT/HCPCS: 99213

== ENCOUNTER → 2024-06-19 13:13 | Outpatient (BNVA) | payer MEDICAID, SELFPAY | PROVIDERS: Visit Provider Nurse Practitioner Family | DX: N28.1 Cyst of kidney, acquired (principal); Z87.442 Personal history of urinary calculi | CPT/HCPCS: 99212 ==

== ENCOUNTER 2024-07-26 12:12 | Outpatient (AMB) | payer MEDICAID, SELFPAY ==
--- NOTE | 2024-07-26 13:22 | A.OFFVIS_ITS ---
Vital Signs 07/26/24 13:28 Height 5 ft 3 in Weight 150 lb 5.684 oz BMI 26.6 BP 128/76 Blood Pressure Location Rt brachial Position Sitting Pulse 86 Pulse Source Pulse Oximeter Pulse Oximetry (%) 96 Oxygen Delivery Method Room Air Intake Visit Reasons: 8 week follow up Intake Note: Relevant Flags or Indicators ? Requires Loom Inspector? Yes Itzel presents in office today for a scheduled 8 week FUV. CC; Since last visit; labs ordered ? via PCP. Rx ordered ? yes (colo prep and colace). Diagnostics/images ordered ? none. Relevant GI Sx as reported per pt? Fecal abnormalities o?? Constipation ? Hx of any recent surgeries? None Pt would like to discuss possible colo and is very adamant about having this done. Loom Inspector Required: Yes Loom Inspector Services: Loom Inspector Present Loom Inspector Name: [id number] Deidre Information Interpreted: non-clinical & clinical Accompanied by: Self / Same As Patient Allergies No Known Allergies Allergy (Verified 07/26/24 13:27) HPI HPI 8 week follow up: Details: LAST VISIT Rectal bleed Constipation Plan Patient will start taking stool softener. Increase fluid intake and activity to promote better bowel motility. Patient will be sent for colonoscopy I will see patient in 8 weeks to see improvement. Patient is agreeable to this plan and verbalizes understanding of instructions. She was given the opportunity to ask questions and all questions answered. ? Thank you for allowing me to participate in her care Medications New bisacodyl (Dulcolax (bisacodyl)) take 4 tabs at noon the day before your colonoscopy 20 mg (4 x 5 mg) PO ONCE 4 tabs 0RF 1 day Z12.11 polyethylene glycol 3350 (Miralax) As directed by gastroenterology department at [facility] 238 grams PO ONCE 238 grams 0RF Z12.11 docusate sodium 100 mg PO BEDTIME 90 caps 3RF K59.00 TODAY'S VISIT Patient is here today for follow-up and to discuss going for colonoscopy. Patient reports that she continues to have constipation. Patient is taking stool softener, however she continues to be constipated. Patient reports that she is not drinking much. Patient reports to have good appetite. Denies melena, hematochezia, unintentional weight loss or ribbon like stools. Patient denies dyspepsia, dysphagia or odynophagia. Patient will be scheduled to go for colonoscopy. Denies any family history of CRC. Patient denies any issues with anesthesia. No history of sleep apnea not on any anticoagulation medication. [facility] Medical History Paranoid delusion Renal cyst Anxiety Elevated cholesterol Occasional tremors Surgical History Hx of section Hx of tubal ligation Social History Household Members: None Housing: Apartment Do you presently have visiting nurse or other home services: No Alcohol intake: never Patient Tobacco Use Status: Current someday Tobacco user Tobacco use type: Cigarette e-Cigarette/Vaping Use: Former Use Second Hand Smoke Exposure: No Substance Use Type: Caffiene service: No Sexual orientation: Straight/Heterosexual Physical Exam Vital Signs: Last Vital Signs Pulse 86 07/26/24 13:28 BP 128/76 07/26/24 13:28 Pulse Ox 96 07/26/24 13:28 Oxygen Delivery Method Room Air 07/26/24 13:28 BMI result Body Mass Index 26.6 Assessment & Plan Assessment & Plan (1) Rectal bleed: Code(s): K62.5 - Hemorrhage of anus and rectum (2) Constipation: Code(s): K59.00 - Constipation, unspecified Qualifiers: Constipation type: slow transit constipation Qualified Code(s): K59.01 - Slow transit constipation (3) Screen for colon cancer: Code(s): Z12.11 - Encounter for screening for malignant neoplasm of colon Plan What to expect before during and after procedure discussed with patient. Patient is aware that she needs to have transportation to come for the procedu re. Patient reports that she does not have any family members that can take her. Stressed the importance of good bowel prep. Patient will start taking Dulcolax daily to help her move her bowels. Increase fluid intake and activity to promote better bowel motility. Message sent to surgical schedulers to book procedure for patient. Patient will follow-up with me in 3 months to discuss again the prep and make sure that she is moving her bowels well. Patient is agreeable to this plan and verbalizes understanding of instructions. She was given the opportunity to ask questions and all questions answered. Thank you for allowing me to participate in her care Medications: New bisacodyl (Dulcolax (bisacodyl)) 10 mg (2 x 5 mg) PO BEDTIME 180 tabs 4RF Changed From polyethylene glycol 3350 As directed by gastroenterology department at [facility] 238 grams PO ONCE 238 grams 0RF Z12.11 - Encounter for screening for malignant neoplasm of colon To polyethylene glycol 3350 (Miralax) As directed by gastroenterology department at [facility] 238 grams PO ONCE 238 grams 0RF Z12.11 - Encounter for screening for malignant neoplasm of colon Discontinued bisacodyl take 4 tabs at noon the day before your colonoscopy Discontinued Reason: Doctor's Order 20 mg (4 x 5 mg) PO ONCE 1 day 4 tabs 0RF Z12.11 - Encounter for screening for malignant neoplasm of colon Coding Level of Care Code Est Pt Level 3 (91137) Diagnoses Rectal bleed K62.5 Slow transit constipation K59.01 Constipation type: slow transit constipation Screen for colon cancer Z12.11 Time Spent (min) 30 Comment 20 minutes spent with patient and additional 10 minutes spent reviewing her records
[2024-07-26 13:28] VITALS: BP 128/76; PULSE 86; O2SAT 96; BMI 26.6
== END 2024-07-26 14:06 | disposition home or self-care (01) ==
PROVIDERS: PCP Family Medicine; Visit Provider Nurse Practitioner Family
DX: K62.5 Hemorrhage of anus and rectum (principal); K59.01 Slow transit constipation; Z12.11 Encounter for screening for malignant neoplasm of colon
CPT/HCPCS: 99213

== ENCOUNTER → 2024-07-26 12:12 | Outpatient (BNVA) | payer MEDICAID, SELFPAY | PROVIDERS: PCP Family Medicine; Visit Provider Nurse Practitioner Family | DX: K62.5 Hemorrhage of anus and rectum (principal); K59.01 Slow transit constipation | CPT/HCPCS: 99212 ==

== ENCOUNTER 2025-01-01 08:20 | Day surgery (SDC) | payer MEDICAID, SELFPAY ==
[2024-12-28 12:42] VITALS: BMI 26.6
--- NOTE | 2024-12-29 09:41 | HO.ANESPROP2 ---
Documented by User: Brittani Emerson NP 12/29/24 09:41 HPI - Anesthesia Eval Consult details Narrative: 59yo F for Colonoscopy PMFSH Active Problems Active Problems: All Active Problems Schizophrenia, paranoid type (Acute) History of kidney stones (Acute) Encounter for annual routine gynecological examination (Acute) Renal cyst (Acute) Nephrolithiasis (Acute) Past Medical History Medical History Paranoid delusion Renal cyst Anxiety Elevated cholesterol Occasional tremors Surgical History Surgical History Hx of section Hx of tubal ligation History of Problems with Anesthesia: No Social History Social History Household Members: None Housing: Apartment Do you presently have visiting nurse or other home services: No Alcohol intake: never Patient Tobacco Use Status: Never used Tobacco Tobacco use type: Cigarette e-Cigarette/Vaping Use: Former Use Second Hand Smoke Exposure: No Use of substances other than those prescribed or required for medical reasons: No Substance Use Type: Caffiene Are you DNR?: No Advance Directives: No Advance Directives Information Provided: Yes service: No Sexual orientation: Straight/Heterosexual Meds Allergies Allergy/AdvReac Type Severity Reaction Status Date / Time No Known Allergies Allergy Verified 10/25/24 13:24 Home Medications ?Medication ?Instructions ?Recorded ?Confirmed ?Last Taken ?Type doxepin 25 mg capsule 25 - 50 mg PO BEDTIME 04/28/24 01/01/25 Unknown History nortriptyline 25 mg capsule 25 mg PO BEDTIME 07/26/24 01/01/25 Unknown History haloperidol 10 mg tablet 10 mg PO BEDTIME 10/25/24 01/01/25 Unknown History prednisolone acetate 1 % eye drp ophthalmic (eye) 10/25/24 Unknown History drops,suspension (Pred Forte) Exam Height,Weight and Vital Signs: Height 5 ft 3 in Weight 68.039 kg Assessment and Plan Assessment Anesthesia Assessment: Chart Reviewed Final Anesthetic Review History of Problems with Anesthesia: No Documented by User: Odalis Goel MD 01/01/25 11:07 PMFSH Past Medical History Medical History Paranoid delusion Renal cyst Anxiety Elevated cholesterol Occasional tremors Family History Family history of problems with anesthesia: No Surgical History Surgical History Hx of section Hx of tubal ligation Social History Social History Household Members: None Housing: Apartment Do you presently have visiting nurse or other home services: No Alcohol intake: never Patient Tobacco Use Status: Never used Tobacco Tobacco use type: Cigarette e-Cigarette/Vaping Use: Former Use Second Hand Smoke Exposure: No Use of substances other than those prescribed or required for medical reasons: No Substance Use Type: Caffiene Are you DNR?: No Advance Directives: No Advance Directives Information Provided: Yes service: No Sexual orientation: Straight/Heterosexual Meds Allergies Allergy/AdvReac Type Severity Reaction Status Date / Time No Known Allergies Allergy Verified 10/25/24 13:24 Home Medications ?Medication ?Instructions ?Recorded ?Confirmed ?Last Taken ?Type doxepin 25 mg capsule 25 - 50 mg PO BEDTIME 04/28/24 01/01/25 Unknown History nortriptyline 25 mg capsule 25 mg PO BEDTIME 07/26/24 01/01/25 Unknown History haloperidol 10 mg tablet 10 mg PO BEDTIME 10/25/24 01/01/25 Unknown History prednisolone acetate 1 % eye drp ophthalmic (eye) 10/25/24 Unknown History drops,suspension (Pred Forte) Exam Airway Mallampati Class: II TM Dist: >3cm Neck ROM: Full Heart: rrr Lungs: cta Assessment and Plan Assessment Anesthesia Assessment: Anesthesia Plan Discussed Final Anesthetic Review Family History of Problems with Anesthesia: No NPO: Yes ASA Class: II Final Preanesthetic Review: No Changes in Pt Med Stat, Meds/Allgs Chart Reviewed and Consent Obtained/Reviewed Patient Risk: Low Procedure Risk: Low Anesthetic Plan Anesthetic Plan: MAC: Disposition: Standard PACU
[2025-01-01 09:42] VITALS: BP 125/71; PULSE 94; RESP 16; TEMP 36.7; O2SAT 100; BMI 26.4
[2025-01-01 09:56] LABS: Glucose, Whole Blood 94 mg/dL (60-115)
[2025-01-01] MEDS: Lactated Ringers 1,000 ML 100 ML IVCONT (10:18)
--- NOTE | 2025-01-01 10:58 | MHC.SHP ---
Pre-Procedural Eval Section A - 24 Hr Update-Section A only Date of Service: 01/01/25 The patient is an INPATIENT: No The patient has been examined within 24 hours of the surgical procedure. The History & Physical has been completed within 30 days and I have reviewed it.: No Section B - Complete if H&P > 30 days Chief Complaint: screening Relevant Family History (Specify if Yes): No Relevant Social History: Tobacco Use Present Medications: see Short Stay Collaborative assessment Medical History: Significant History (Paranoid delusion Renal cyst Anxiety Elevated cholesterol Occasional tremors) History of Previous Operations: Relevant previous surgery/procedure and date(s) (History of , history of tubal ligation) Allergies: Allergies Allergy/AdvReac Type Severity Reaction Status Date / Time No Known Allergies Allergy Verified 10/25/24 13:24 Review of Systems Sugical H&P ROS: Negative: Constitution, Cardiovascular, Respiratory and Gastrointestinal Exam Surgical H&P Exam: Normal: Heart, Normal: Lungs, Normal: Extremities and Normal: Abdomen Plan Diagnosis/Plan: Unchanged I have reviewed the history and physical and performed a pertinent physical examination on my patient. No changes have occurred unless specified. Time Spent With Patient Time: Total time managing care of this patient today ____ minutes.
[2025-01-01 11:25] VITALS: BP 112/72; PULSE 86; RESP 16; TEMP 36.6; O2SAT 99
--- NOTE | 2025-01-01 11:31 | HO.OPN-COLON ---
Colonoscopy Operative Note Operative Note Date of Service: 01/01/25 Narrative: FLEXIBLE SIGMOIDOSCOPY TILL 15 CM Pre-op diagnosis: Colon cancer screening. Post-op diagnosis:? Poor prep Endoscopist:? James Hankins MD Anesthesia:?MAC Consent: Indications for the procedure and potential complications of bleeding, perforation, reaction to medications and missed diagnosis were discussed with the patient and informed consent was obtained. Instrument: Olympus PCF H 190 L variable stiffness pediatric colonoscope Monitoring: Vital signs and clinical assessment, intermittent blood pressure monitoring, continuous EKG monitoring, Pulse oximetry and Carbon Dioxide monitoring were done throughout the procedure. Please see anesthesia flowsheet. Procedure: The patient was placed in the left lateral decubitis position and pre-procedure medications were administered. After a digital rectal examination of the ano-rectum, the video colonoscope was inserted into the rectum and advanced through the colon to the rectum/ distal sigmoid colon. It was not possible to advanced the colonoscope due to poor prep and stool blocking the lumen. The colonoscope was removed and the procedure was abandoned Procedure Difficulty: NA Findings: Sigmoid Colon: Not evaluated due to poor prep Rectum: Not evaluated due to poor prep Ano-rectum: Not evaluated Colon preparation: Poor - procedure was discontinued. [place] Bowel Preparation Scale Right colon; 1 Transverse colon: 1 Left colon; 1 (0 = Unprepared colon segment with mucosa not seen due to solid stool that cannot be cleared. 1 = Portion of mucosa of the colon segment seen, but other areas of the colon segment not well seen due to staining, residual stool and/or opaque liquid. 2 = Minor amount of residual staining, small fragments of stool and/or opaque liquid, but mucosa of colon segment seen well. 3 = Entire mucosa of colon segment seen well with no residual staining, small fragments of stool or opaque liquid) Impression and Post Procedure Diagnosis: Flexible Sigmoidoscopy Findings: Procedure discontinued due to poor prep Plan: Pt has a FU appointment on 01/16/25 with Doretha Yates NP Pt can be re-scheduled for Colonoscopy with a 2 day prep versus consider Stool Cologuard since pt had a negative colon 10 years ago. Above findings were reviewed with the patient.
[2025-01-01 11:40] VITALS: BP 110/71; PULSE 92; RESP 16; O2SAT 98
[2025-01-01 11:55] VITALS: BP 127/80; PULSE 97; RESP 16; TEMP 36.4; O2SAT 98
== END 2025-01-01 12:20 | disposition home or self-care (01) ==
PROVIDERS: PCP Family Medicine; Visit Provider Internal Medicine Gastroenterology
PROC: 0DJD8ZZ Inspection of Lower Intestinal Tract, Via Natural or Artificial Opening Endoscopic (ICD-10-PCS; CPT 45378; principal; 2025-01-01 11:00)
DX: K62.5 Hemorrhage of anus and rectum (principal); K59.01 Slow transit constipation; F41.9 Anxiety disorder, unspecified; E78.00 Pure hypercholesterolemia, unspecified; R25.1 Tremor, unspecified; F22 Delusional disorders; N28.1 Cyst of kidney, acquired; Z79.899 Other long term (current) drug therapy; F17.210 Nicotine dependence, cigarettes, uncomplicated
CPT/HCPCS: 45330; 82947; J2003; J2704

== ENCOUNTER → 2025-01-01 08:20 | Outpatient (BNV) | payer MEDICAID, SELFPAY | PROVIDERS: PCP Family Medicine; Visit Provider Internal Medicine Gastroenterology | DX: Z12.11 Encounter for screening for malignant neoplasm of colon (principal); Z91.199 Patient's noncompliance with other medical treatment and regimen due to unspecified reason | CPT/HCPCS: 45378 ==

== ENCOUNTER 2025-01-16 08:06 | Outpatient (AMB) | payer MEDICAID, SELFPAY ==
--- NOTE | 2025-01-16 08:09 | MHC.OFFVIS ---
Vital Signs 01/16/25 08:11 Height 5 ft 3 in Weight 147 lb 4.301 oz BMI 26.1 BP 118/72 Blood Pressure Location Rt brachial Position Sitting Pulse 114 H Pulse Source Pulse Oximeter Pulse Oximetry (%) 98 Oxygen Delivery Method Room Air Intake Visit Reasons: f/u colonoscopy Intake Note: ESTABLISHED PATIENT for review of colo. Procedure was abandoned due to poor prep. Pt will need additional instruction. Chief Complaint; Pt appears to be very confused and agitated today. Pt is questioning every action that MA is taking during rooming process. Pt is hoping to get clarification as to why the procedure turned out the way that it did and what we need to do moving forward. Drywall Sander Required: Yes Drywall Sander Services: Drywall Sander Present Drywall Sander Name: [id number] Sandhya + [facility] Information Interpreted: non-clinical & clinical Accompanied by: Self / Same As Patient Allergies No Known Allergies Allergy (Verified 01/16/25 08:51) HPI HPI f/u colonoscopy: Details: LAST VISIT Rectal bleed Constipation Screen for colon cancer Plan What to expect before during and after procedure discussed with patient. Patient is aware that she needs to have transportation to come for the procedure. Patient reports that she does not have any family members that can take her. Stressed the importance of good bowel prep. Patient will start taking Dulcolax daily to help her move her bowels. Increase fluid intake and activity to promote better bowel motility. Message sent to surgical schedulers to book procedure for patient. Patient will follow-up with me in 3 months to discuss again the prep and make sure that she is moving her bowels well. Patient is agreeable to this plan and verbalizes understanding of instructions. She was given the opportunity to ask questions and all questions answered. ? Thank you for allowing me to participate in her care Medications New bisacodyl (Dulcolax (bisacodyl)) 10 mg (2 x 5 mg) PO BEDTIME 180 tabs 4RF Changed Changed From polyethylene glycol 3350 As directed by gastroenterology department at [facility] 238 grams PO ONCE 238 grams 0RF Z12.11 Changed To polyethylene glycol 3350 (Miralax) As directed by gastroenterology department at [facility] 238 grams PO ONCE 238 grams 0RF Z12.11 Discontinued bisacodyl take 4 tabs at noon the day before your colonoscopy Discontinued Reason: Doctor's Order 20 mg (4 x 5 mg) PO ONCE 1 day 4 tabs 0RF Z12.11 COLONOSCOPY Findings: Sigmoid Colon: Not evaluated due to poor prep Rectum: Not evaluated due to poor prep Ano-rectum: Not evaluated Colon preparation: Poor - procedure was discontinued. [place] Bowel Preparation Scale Right colon; 1 Transverse colon: 1 Left colon; 1 (0 = Unprepared colon segment with mucosa not seen due to solid stool that cannot be cleared. 1 = Portion of mucosa of the colon segment seen, but other areas of the colon segment not well seen due to staining, residual stool and/or opaque liquid. 2 = Minor amount of residual staining, small fragments of stool and/or opaque liquid, but mucosa of colon segment seen well. 3 = Entire mucosa of colon segment seen well with no residual staining, small fragments of stool or opaque liquid) Impression and Post Procedure Diagnosis: Flexible Sigmoidoscopy Findings: Procedure discontinued due to poor prep Plan: Pt has a FU appointment on 01/16/25 with Doretha Yates NP Pt can be re-scheduled for Colonoscopy with a 2 day prep versus consider Stool Cologuard since pt had a negative colon 10 years ago. TODAY'S VISIT Patient is here today for follow-up after colonoscopy. Colonoscopy was not performed as patient had suboptimal prep. Patient was not taking the Dulcolax as it was causing her to have diarrhea. Patient keeps saying after we discussed the importance of emptying her bowels but I almost pooped myself I can not take that Patient's neighbor accompanied her and is with her during this appointment. In person mellowing machine operator available during the whole appointment. Patient thought that today's appointment was for her to have another colonoscopy. Long discussion with patient about why is important for her to be cleared of stool and that her colonoscopy on January 01 was not successful as patient was full of stool. Patient denies any abdominal pain or discomfort. Denies melena, hematochezia. Denies any acid reflux. Denies any GI concerning symptoms today [facility] Medical History Paranoid delusion Renal cyst Anxiety Elevated cholesterol Occasional tremors Surgical History (Updated 01/16/25 @ 08:53 by SILVIA Mckeon) Hx of colonoscopy Hx of section Hx of tubal ligation Social History Household Members: None Housing: Apartment Do you presently have visiting nurse or other home services: No Alcohol intake: never Patient Tobacco Use Status: Never used Tobacco Tobacco use type: Cigarette e-Cigarette/Vaping Use: Former Use Second Hand Smoke Exposure: No Substance Use Type: Caffiene service: No Sexual orientation: Straight/Heterosexual Review of Systems Const Denies weight gain and Denies weight loss ENT Reports no additional complaints, Denies dysphagia and Denies odynophagia Card Reports no additional complaints Resp Reports no additional complaints GI Denies abdominal pain, Denies belching, Denies melena, Denies bloating, Denies change in bowel habits, Denies dysphagia, Denies excessive flatus, Denies dyspepsia, Denies heartburn, Denies diarrhea, Denies loose stools, Denies nausea, Denies odynophagia and Denies vomiting Musc Reports no additional complaints Neuro Reports no additional complaints Psych Reports no additional complaints Endo Reports no additional complaints Physical Exam Const General: healthy appearing, no acute distress and well developed Nutritional Appearance: well nourished Orientation/consciousness: patient oriented x3 Resp Effort & Inspection: normal respiratory effort, able to speak in complete sentences, no tracheal deviation and symmetric chest movement Auscultation: clear to auscultation bilaterally Cardio Rate: regular rate GI Inspection: Yes normal to inspection and No distended Palpation (GI): Soft to palpation, not firm, nontender and No hepatosplenomegaly present Auscultation: normal bowel sounds General: Yes no CVA tenderness Back/Spine/Pelvis Back: no CVA tenderness Skin General skin exam: elasticity normal, turgor normal and dry skin Neuro General: patient oriented x3 Psych Appearance: grossly normal Mental Status: mental status grossly normal Assessment & Plan Assessment & Plan (1) Constipation: Code(s): K59.00 - Constipation, unspecified Qualifiers: Constipation type: slow transit constipation Qualified Code(s): K59.01 - Slow transit constipation (2) Status post colonoscopy: Code(s): Z98.890 - Other specified postprocedural states Plan Long discussion with patient about why we will do Cologuard instead of colonoscopy again. Patient clearly does not want to go to the bathroom frequently. Afraid that she will have an accident. Patient had a normal colonoscopy 10 years ago. Explained to patient and her neighbor the step that she needs to take in order to get the Cologuard done. Follow instructions. We will call her with results. However if patient will have a positive Cologuard she will need a colonoscopy then. Patient is agreeable to this plan and verbalizes understanding of instructions. She was given the opportunity to ask questions and all questions answered. Thank you for allowing me to participate in her care Coding Level of Care Code Est Pt Level 3 (92614) Diagnoses Slow transit constipation K59.01 Constipation type: slow transit constipation Status post colonoscopy Z98.890 Time Spent (min) 30 Comment 20 minutes spent with patient and additional 10 minutes spent reviewing her records
[2025-01-16 08:11] VITALS: BP 118/72; PULSE 114; O2SAT 98; BMI 26.1
--- OUTSIDE RECORDS SUMMARY | 2025-01-16 08:16 | XMS_ITS | Encounter Summary ---
Author Organization [employer] Address [address] [place] [address] Care Team Providers Care Circuit Recorder Name Role Phone [facility] Primary Care Provider [phone] Encounter Details Date Type Department Care Team ([facility] st Contact Info) Description 01/25/2024 Telephone [facility] [address] [place], [place] [phone] [place] [facility] [address] [place] [address] Social History Tobacco Use Types Packs/Day Years Used Date Smoking Tobacco: Never Passive Smoke Exposure: Never Smokeless Tobacco: Never Alcohol Use Standard Drinks/Week Comments Never 0 (1 standard drink = 0.6 oz pur e alcohol) Depression Answer Date Recorded Patient Health Questionnaire-9 Score 0 12/22/2023 Patient Health Questionnaire-9 Score 0 12/22/2023 Last PHQ-9: Questionnaire Data Not on file 0 12/22/2023 Housing Stability Answer Date Recorded What is your housing situation today? I have vivian rodriguez 12/15/[address] you li ve. Do you have problems with any of the following? None of the above 12/15/2023 Food Insecurity Answer Date Recorded Within the past 12 months, y ou worried that your food would run out before you got money to buy more: Sometimes True 2023 Within the past 12 months,th e food you bought just didn't last and you didn't have enough money to get more: Sometimes True 12/15/2023 Transportation Answer Date Recorded In the past 12 months, has l ack of transportation kept you from medical appts, meetings, work or from getting things needed for daily living? No 12/15/2023 Utilities Answer Date Recorded In the past 12 months, has t he electric, gas, oil or water company threatened to shut off services in your home? No 12/15/2023 Depression Answer Date Recorded Patient Health Questionnaire-2 Score 0 12/22/2023 Comments Unknown Sex and Gender Information Value Date Recorded Sex Assigned at Female 08/10/2022 10:14 AM EDT Legal Sex Female 10:14 AM EDT Gender Identity Female 08/10/2022 10:14 AM EDT Sexual Orientation Choose not to disclose 2021 10:14 AM EDT documented as of this encounter Plan of Treatment Upcoming Encounters Date Type Department Care Team (Late st Contact Info) Description 03/09/2025 3:30 PM EDT Office Visit [facility] [address] [place] [address] Roderick, Solange, OD [address] [place] [address] documented as of this encounter Visit Diagnoses Not on filedocumented in this encounter Additional Health Concerns Assessment Noted Time PHQ-9 Depression Total Score: 0 12/22/19 24 9:02 AM EDT documented as of this encounter Care Teams Circuit Recorder Relationship Specialty Start Date End Date Charlotte Laureano FNP [address] [place] [address] PCP - General Family Medicine 06/09/22 documented as of this encounter
--- OUTSIDE RECORDS SUMMARY | 2025-01-16 08:16 | XMS_ITS | Encounter Summary ---
Author Organization [employer] Address [address] [facility] 7t [place] [address] Care Team Providers Care Garland Maker Name Role Phone [facility] Primary Care Provider [phone] Reason for Visit * Reason Onset Date Comments Med Refill 03/31/2024 Encounter Details Date Type Department Care Team ([facility] st Contact Info) Description 03/31/2024 Telephone [facility] MEDICINE 230 [place], [place] [phone] [facility] 230 [place], [place] [phone] Med Refill Social History Tobacco Use Types Packs/Day Years [...] AM EDT documented as of this encounter Miscellaneous Notes * Telephone Encounter - Jody Bright LPN - 03/31/2024 9:40 AM EDT Script was sent to [facility] on 02/07/24 90 day supply with 2 refills. * Telephone Encounter - Stefania Cardenas - 03/31/2024 9:25 AM EDT TC from pt requesting medication refill. Medications needing refill : metFORMIN XR (Glucophage-XR) 500 MG 24 hr tablet To be sent to: [facility] - [place], [place] - [address] [facility] documented in this encounter Plan of Treatment Upcoming Encounters Date Type Department Care Team (Late st Contact Info) Description 03/09/2025 3:30 PM EDT Office Visit [facility] OPTOMETRY [address] [place] [address] Solange Vaughn, OD 230 [place] [address] documented as of this encounter Visit Diagnoses Not on filedocumented in this encounter Additional Health Concerns Assessment Noted Time PHQ-9 Depression Total Score: 0 12/22/19 24 9:02 AM EDT documented as of this encounter Care Teams Garland Maker Relationship Specialty Start Date End Date MicoCharlotte FNP 230 [place] [address] PCP - General Family Medicine 06/09/22 documented as of this encounter
--- OUTSIDE RECORDS SUMMARY | 2025-01-16 08:16 | XMS_ITS | Encounter Summary ---
Author Organization [employer] Address [address] [place] [address] 7 [place] [address] Care Team Providers Care Box Bender Name Role Phone [facility] Primary Care Provider [phone] Reason for Visit * Reason Onset Date Comments Lab Orders 11/16/2022 Encounter Details Date Type Department Care Team ([facility] st Contact Info) Description 11/16/2022 Telephone [facility] MEDICINE 230 [place], [place] [phone] [facility] 230 [place] [address] Lab Orders Social History Tobacco Use Types Packs/Day Years Used Date Smoking Tobacco: Never Smokeless Tobacco: Never Alcohol Use Standard Drinks/Week Comments Never 0 (1 standard drink = 0.6 oz pur e alcohol) Comments Unknown Sex and Gender Information Value Date Recorded Sex Assigned at Female 08/10/2022 10:14 AM EDT Legal Sex Female 10:14 AM EDT Gender Identity Female 08/10/2022 10:14 AM EDT Sexual Orientation Choose not to disclose 2021 10:14 AM EDT COVID-19 Exposure Response Date Recorded In the last 10 days, have yo u been in contact with someone who was confirmed or suspected to have Coronavirus/COVID-19? No / Unsure 11/13/2022 11:15 AM EST documented as of this encounter Miscellaneous Notes * Telephone Encounter - Mike Serna - 11/16/2022 12:25 PM EST Tc from pt requesting a call back regarding blood work order Please contact pt at [phone] documented in this encounter Plan of Treatment Upcoming Encounters Date Type Department Care Team (Late st Contact Info) Description 03/09/2025 3:30 PM EDT Office Visit [facility] OPTOMETRY [address] [place] [address] Solange Vaughn, OD 230 [place] [address] documented as of this encounter Visit Diagnoses Not on filedocumented in this encounter Additional Health Concerns Assessment Noted Time PHQ-9 Depression Total Score: 0 11/13/19 23 1:38 PM EST documented as of this encounter Care Teams Box Bender Relationship Specialty Start Date End Date Charlotte Laureano FNP 230 [place] [address] PCP - General Family Medicine 06/09/22 documented as of this encounter
--- OUTSIDE RECORDS SUMMARY | 2025-01-16 08:16 | XMS_ITS | Encounter Summary ---
Author Organization [employer] Address [address] [place] [address] 7t [place] [address] Care Team Providers Care Lumber Planer Name Role Phone [facility] Primary Care Provider [phone] Reason for Visit * Reason Onset Date Comments Results 07/12/2023 Encounter Details Date Type Department Care Team ([facility] st Contact Info) Description 07/12/2023 Telephone [facility] MEDICINE 230 [place], [place] [phone] [facility] 230 [place] [address] Results Social History Tobacco Use Types Packs/Day Years Used Date Smoking Tobacco: Never Passive Smoke Exposure: Never Smokeless Tobacco: Never Alcohol Use Standard Drinks/Week Comments Never 0 (1 standard drink = 0.6 oz pur e alcohol) Depression Answer Date Recorded Patient Health Questionnaire-9 Score 0 04/27/2023 Depression Answer Date Recorded Patient Health Questionnaire-2 Score 0 04/27/2023 Comments Unknown Sex and Gender Information Value Date Recorded Sex Assigned at Female 08/10/2022 10:14 AM EDT Legal Sex Female 10:14 AM EDT Gender Identity Female 08/10/2022 10:14 AM EDT Sexual Orientation Choose not to disclose 2021 10:14 AM EDT documented as of this encounter Miscellaneous Notes * Telephone Encounter - Yael Vickers RN - 07/15/2023 11:46 AM EDT T/C to pt. Through [employer] id - [id number] for below message, pt. Was informed regarding normal lipids labs. Pt. Verbally agreed and understood. * Telephone Encounter - Stefania Cardenas - 07/13/2023 4:17 PM EDT Pt calling again requesting a call in regards to results of 07/08 labs. Please contact pt at [phone] (Irish) * Telephone Encounter - Maria De Jesus Shultz - 07/12/2023 9:14 AM EDT Tc from pt requesting a call in regards to results of 07/08 labs. Please contact pt at [phone] (Irish) documented in this encounter Plan of Treatment Upcoming Encounters Date Type Department Care Team (Late st Contact Info) Description 03/09/2025 3:30 PM EDT Office Visit [facility] OPTOMETRY [address] [place] [address] Roderick, Solange, OD 230 [place] [address] documented as of this encounter Visit Diagnoses Not on filedocumented in this encounter Additional Health Concerns Assessment Noted Time PHQ-9 Depression Total Score: 0 04/27/20 23 9:47 AM EDT documented as of this encounter Care Teams Lumber Planer Relationship Specialty Start Date End Date Charlotte Laureano FNP 230 [place] [address] PCP - General Family Medicine 06/09/22 documented as of this encounter
--- OUTSIDE RECORDS SUMMARY | 2025-01-16 08:16 | XMS_ITS | Encounter Summary ---
Author Organization [employer] Address [address] [facility] 7 [place] [address] Care Team Providers Care Isotope Technologist Name Role Phone [facility] Primary Care Provider [phone] Reason for Visit * Reason Onset Date Comments Lab Orders 11/23/2022 Encounter Details Date Type Department Care Team ([facility] st Contact Info) Description 11/23/2022 Telephone [facility] MEDICINE 230 [place], [place] [phone] [facility] 230 [place] [address] Lab Orders Social History Tobacco Use Types [...] encounter Miscellaneous Notes * Telephone Encounter - Radha Nix RN - 11/23/2022 3:46 PM EST Returned call to pt regarding message below. Pt informed of lab orders placed and can come at pt convenience when pt is fasting. Pt agrees with plan. * Telephone Encounter - Anjali Ames - 11/23/2022 12:35 PM EST Tc from pt requesting a call back regarding blood work order Please contact pt at [phone] documented in this encounter Plan of Treatment Upcoming Encounters Date Type Department Care Team (Late st Contact Info) Description 03/09/2025 3:30 PM EDT Office Visit [facility] OPTOMETRY [address] [place], [place] [phone] Solange Vaughn, OD 230 [place] [address] documented as of this encounter Visit Diagnoses Not on filedocumented in this encounter Additional Health Concerns Assessment Noted Time PHQ-9 Depression Total Score: 0 11/13/19 23 1:38 PM EST documented as of this encounter Care Teams Isotope Technologist Relationship Specialty Start Date End Date Charlotte Laureano FNP 230 [place] [address] PCP - General Family Medicine 06/09/22 documented as of this encounter
--- OUTSIDE RECORDS SUMMARY | 2025-01-16 08:16 | XMS_ITS | Encounter Summary ---
Author Organization [employer] Address [address] [facility] 7t [place] [address] Care Team Providers Care Video Network Engineer Name Role Phone [facility] Primary Care Provider [phone] Reason for Visit * Reason Onset Date Comments Results 11/17/2023 Encounter Details Date Type Department Care Team ([facility] Contact Info) Description 11/17/2023 Telephone [facility] MEDICINE 230 [place], [place] [phone] [facility] 230 [place] [address] Results Social History Tobacco Use Types Packs/Day Years Used Date Smoking Tobacco: Never Passive Smoke Exposure: Never Smokeless Tobacco: Never Alcohol Use Standard Drinks/Week Comments Never 0 (1 standard drink = 0.6 oz pur e alcohol) Depression Answer Date Recorded Patient Health Questionnaire-9 Score 0 10/13/2023 Patient Health Questionnaire-9 Score 0 10/13/2023 Last PHQ-9: Questionnaire Data Not on file 0 10/13/2023 Housing Stability Answer Date Recorded What is your housing situation today? I have vivianpallavi rodriguez 07/19/[address] you li ve. Do you have problems with any of the following? No or not working smoke detectors 07/19/2023 Food Insecurity Answer Date Recorded Within the past 12 months, y ou worried that your food would run out before you got money to buy more: Never True 07/26/2023 Within the past 12 months,th e food you bought just didn't last and you didn't have enough money to get more: Never True Transportation Answer Date Recorded In the past 12 months, has l ack of transportation kept you from medical appts, meetings, work or from getting things needed for daily living? No 07/26/2023 Utilities Answer Date Recorded In the past 12 months, has t he electric, gas, oil or water company threatened to shut off services in your home? No 07/26/2023 Depression Answer Date Recorded Patient Health Questionnaire-2 Score 0 10/13/2023 Comments Unknown Sex and Gender Information Value Date Recorded Sex Assigned at Female 08/10/2022 10:14 AM EDT Legal Sex Female 10:14 AM EDT Gender Identity Female 08/10/2022 10:14 AM EDT Sexual Orientation Choose not to disclose 2021 10:14 AM EDT documented as of this encounter Miscellaneous Notes * Telephone Encounter - Maria De Jesus Shultz - 11/26/2023 11:35 AM EST Tc from pt requesting results from labs done yesterday (11/25). Pt is also requesting to set up a mammogram as well as a PAP smear. Please contact pt at [phone] * Telephone Encounter - Dony Hanson - 11/19/2023 9:11 AM EST Tc from pt requesting a call back for results. * Telephone Encounter - Anjali Ames - 11/17/2023 8:23 AM EST Tc from pt requesting status on lab work results done on 11/16/2023. documented in this encounter Plan of Treatment Upcoming Encounters Date Type Department Care Team (Late st Contact Info) Description 03/09/2025 3:30 PM EDT Office Visit [facility] OPTOMETRY [address] [place] [address] Roderick, Solange, OD [address] [place], [place] [phone] documented as of this encounter Visit Diagnoses Not on filedocumented in this encounter Additional Health Concerns Assessment Noted Time PHQ-9 Depression Total Score: 0 10/13/19 24 11:29 AM EST documented as of this encounter Care Teams Video Network Engineer Relationship Specialty Start Date End Date Charlotte Laureano FNP 230 [place] [address] PCP - General Family Medicine 06/09/22 documented as of this encounter
--- OUTSIDE RECORDS SUMMARY | 2025-01-16 08:16 | XMS_ITS | Encounter Summary ---
Author Organization [employer] Address [address] [facility] [address] [place] [address] Care Team Providers Care Lay Brother Name Role Phone [facility] Primary Care Provider Encounter Details Date Type Department Care Team ([facility] st Contact Info) Description 05/25/2024 Orders Only [facility] 230 [place], [place] [phone] Noreen Krishnamurthy RN Social History Tobacco Use Types Packs/Day Years Used Date Smoking Tobacco: Never Passive Smoke Exposure: Never Smokeless Tobacco: Never Alcohol Use Standard Drinks/Week Comments Never 0 (1 standard drink = 0.6 oz pur e alcohol) Depression Answer Date Recorded Patient Health Questionnaire-9 Score 0 05/15/2024 Patient Health Questionnaire-9 Score 0 05/15/2024 Last PHQ-9: Questionnaire Data Not on file 0 05/15/2024 Housing Stability Answer Date Recorded What is [...] got money to buy more: Never True 05/15/2024 Within the past 12 months,th e food you bought just didn't last and you didn't have enough money to get more: Never True 02/2024 Transportation Answer Date Recorded In the past [...] Date Recorded Patient Health Questionnaire-2 Score 0 05/15/2024 Comments Unknown Sex and Gender Information Value [...] Description 03/09/2025 3:30 PM EDT Office Visit [facility] OPTOMETRY [address] [place], [place] [phone] RoderickSolange meng, OD 230 [place] [address] documented as of this encounter Visit Diagnoses Not on filedocumented in this encounter Additional Health Concerns Assessment Noted Time PHQ-9 Depression Total Score: 0 05/15/20 24 8:48 AM EDT documented as of this encounter Care Teams Lay Brother Relationship Specialty Start Date End Date Charlotte Laureano FNP 230 [place] [address] PCP - General Family Medicine 06/09/22 documented as of this encounter
--- OUTSIDE RECORDS SUMMARY | 2025-01-16 08:16 | XMS_ITS | Encounter Summary ---
Author Organization [employer] Address [address] [facility] 7t [place] [address] Care Team Providers Care Professor Of Art Name Role Phone [facility] Primary Care Provider [phone] Reason for Visit * Reason Onset Date Comments Nurse Triage 11/10/2023 Encounter Details Date Type Department Care Team ([facility] st Contact Info) Description 11/10/2023 Telephone [facility] MED[facility]INE 230 [place], [place] [phone] [facility] 230 [place], [place] [phone] Nurse Triage Social History Tobacco Use Types Packs/Day Years [...] housing situation today? I have vivian rodriguez 07/19/[address] you [...] encounter Miscellaneous Notes * Telephone Encounter - Jenna Valerio RN - 11/10/2023 10:49 AM EST Triage attempted x2 with [employer] Fuel Dock Attendant ID [id number] . Both call went directly to message which said voice mail box not set up yet. Unable to leave message. * Telephone Encounter - Maria De Jesus Shultz - 11/10/2023 9:28 AM EST Symptom: Hair Loss Outcome: Schedule an appointment to be seen within 3 days Reason: This is the only possible outcome for this symptom The caller accepted this outcome Please contact pt at [phone] (nauruan) documented in this encounter Plan of Treatment Upcoming Encounters Date Type Department Care Team (Late st Contact Info) Description 03/09/2025 3:30 PM EDT Office Visit [facility] OPTOMETRY [address] [place] [address] Solange Vaughn, OD 230 [place] [address] documented as of this encounter Visit Diagnoses Not on filedocumented in this encounter Additional Health Concerns Assessment Noted Time PHQ-9 Depression Total Score: 0 10/13/19 24 11:29 AM EST documented as of this encounter Care Teams Professor Of Art Relationship Specialty Start Date End Date [facility] DAO Porter 230 [place] [address] PCP - General Family Medicine 06/09/22 documented as of this encounter
--- OUTSIDE RECORDS SUMMARY | 2025-01-16 08:16 | XMS_ITS | Encounter Summary ---
Author Organization [employer] Address [address] [place] [address] 7 [place] [address] Care Team Providers Care Rod Machine Operator Name Role Phone [facility] Primary Care Provider [phone] Reason for Visit * Reason Onset Date Comments Lab Orders 12/07/2022 Encounter Details Date Type Department Care Team ([facility] Contact Info) Description 12/07/2022 Telephone [facility] MEDICINE 230 [place] [address] [facility] 230 [place] [address] Lab Orders Social History Tobacco Use Types [...] suspected to have Coronavirus/COVID-19? No / Unsure 12/07/2022 10:39 AM EST documented as of this encounter Plan of Treatment Upcoming Encounters Date Type Department Care Team ([facility] Contact Info) Description 03/09/2025 3:30 PM EDT Office Visit [facility] OPTOMETRY [address] [place] [address] Roderick, Solange, OD 230 [place] [address] documented as of this encounter Visit Diagnoses Not on filedocumented in this encounter Additional Health Concerns Assessment Noted Time PHQ-9 Depression Total Score: 0 11/13/19 23 1:38 PM EST documented as of this encounter Care Teams Rod Machine Operator Relationship Specialty Start Date End Date Charlotte Laureano FNP 230 [place] [address] PCP - General Family Medicine 06/09/22 documented as of this encounter
--- OUTSIDE RECORDS SUMMARY | 2025-01-16 08:16 | XMS_ITS | Encounter Summary ---
Author Organization [employer] Address [address] [facility] 7t [place] [address] Care Team Providers Care Automobile Taillight Assembler Name Role Phone [facility] Primary Care Provider [phone] Reason for Visit * Reason Onset Date Comments Med Refill 03/20/2024 Encounter Details Date Type Department Care Team ([facility] st Contact Info) Description 03/20/2024 Telephone [facility] MEDICINE 230 [place], [place] [phone] [facility] 230 [place], [place] [phone] Med Refill Social History Tobacco Use Types [...] Telephone Encounter - Jody Bright LPN - 03/20/2024 9:31 AM EDT Medication was sent to [facility] on 02/07/24 #180 with 2 refills. * Telephone Encounter - Stefania Cardenas - 03/20/2024 9:23 AM EDT TC from pt requesting medication refill. Medications needing refill : metFORMIN XR (Glucophage-XR) 500 MG 24 hr tablet To be sent to: [facility] - [place], [place] - [address] [facility] documented in this encounter Plan of Treatment Upcoming Encounters Date Type Department Care Team (Late st Contact Info) Description 03/09/2025 3:30 PM EDT Office Visit [facility] OPTOMETRY [address] [place] [address] Solange Vaughn, OD 230 [place] [address] documented as of this encounter Visit Diagnoses Not on filedocumented in this encounter Additional Health Concerns Assessment Noted Time PHQ-9 Depression Total Score: 0 12/22/19 24 9:02 AM EDT documented as of this encounter Care Teams Automobile Taillight Assembler Relationship Specialty Start Date End Date [place] DAO Porter 230 [place] [address] PCP - General Family Medicine 06/09/22 documented as of this encounter
--- OUTSIDE RECORDS SUMMARY | 2025-01-16 08:16 | XMS_ITS | Clinical Summary ---
Author Organization [employer] Address [address] [place] [address] Care Team Providers Care Pot Builder Name Role Phone [facility] Primary Care Provider [phone] Allergies Active Allergy Reactions Criticality Noted Date Comments Amoxicillin 09/23/2017 Other reaction(s): hair loss [facility] 09/09/2018 Other reaction(s): Rash, Rash Risperidone 02/01/2014 Other reaction(s): Gynecomastia Medications * This document contains information received from the source organization and may not represent a complete record from that organization. Pain Reliever Plus 250-250-65 MG tablet TAKE 1 TABLET BY MOUTH EVERY 6 TO 8 HOURS NEEDED FOR MIGRAINE NO MORE THAN THAN 2 DAYS PER WEEK 07/27/20 22 Active cloNIDine (Catapres) 0.2 MG tablet Take 0.2 mg by mouth at bedtime. 02/18/20 22 Active haloperidol (Haldol) 5 MG tablet Take 1 tablet by mouth in the morning 09/29/20 22 Active SUMAtriptan (Imitrex) 25 MG tablet TAKE 1 TABLET BY MOUTH ONCE WITH WATER AT ONSET OF MIGRAINE. MAY REPEAT AFTER 5 HOURS NEEDED. DO NOT EXCEED 8 TABLETS IN 24 HOURS 08/17/20 22 Active capsaicin (Zostrix) 0.025 % creamIndications :Acute pain of both knees APPLY TOPICALLY TO AFFECTED AREA(S) TWICE DAILY 60 g 1 12/25/19 23 Active Diclofenac Sodium 1 % gelIndications:A cute pain of both knees APPLY 4 GRAMS TOPICALLY TO AFFECTED AREA(S) TWICE DAILY 100 g 2 01/06/20 23 Active fluticasone (Flonase) 50 MCG/ACT nasal sprayIndications :Seasonal allergies USE 1 TO 2 SPRAYS IN EACH NOSTRIL EVERY MORNING 48 g 05/11/20 23 Active Additional Information Patient not taking.Reported on 11/15/2023 Multiple Vitamin (multivitamin) tabletIndication s:Healthcare maintenance Take 1 tablet by mouth Once daily. 90 tablet 3 10/13/19 24 Active haloperidol (Haldol) 10 MG tablet Take 1 tablet by mouth at bedtime. 11/04/19 24 Active hydrocortisone 1 % cream APPLY RECTALLY TWICE DAILY IF NEEDED FOR HEMORRHOIDS 28 g 1 12/15/19 24 Active Minoxidil (Minoxidil for Men) 5 % foamIndications: Hair loss APPLY 1/2 CAP TO THE SCALP TWICE DAILY DIRECTED 60 g 02/09/20 24 Active nortriptyline (Pamelor) 25 MG capsule TAKE 1 CAPSULE BY MOUTH EVERY DAY AT BEDTIME 05/22/20 24 Active docusate sodium (Colace) 100 MG capsule TAKE 1 CAPSULE BY MOUTH EVERY DAY AT BEDTIME 04/28/20 24 Active GaviLAX 17 GM/SCOOP powderIndication s:Constipation, unspecified constipation type Mix 17g (1 capful) in 8 ounces of water and take by mouth every day 510 g 2 08/28/20 24 Active metFORMIN XR (Glucophage-XR) 500 MG 24 hr tabletIndication s:Class 1 obesity due to excess calories with serious comorbidity and body mass index (BMI) of 33.0 to 33.9 in adult TAKE 1 TABLET BY MOUTH TWICE A DAY. DO NOT CRUSH, CHEW OR SPLIT. 180 tablet 10/09/20 24 Active naproxen sodium (Aleve) 220 MG tabletIndication s:Acute bilateral back pain, unspecified back location Take 1 tablet (220 mg) by mouth if needed in the morning and at bedtime for mild pain. 60 tablet 1 11/14/19 25 2025 Active atorvastatin (Lipitor) 80 MG tablet TAKE 1 TABLET BY MOUTH EVERY DAY AT BEDTIME 90 tablet 3 12/07/19 25 Active benztropine (Cogentin) 0.5 MG tablet Take 0.5 mg by mouth 2 times daily. 09/29/20 22 2024 Discontinued clonazePAM (KlonoPIN) 1 MG tablet TAKE 1 TO 2 TABLETS BY MOUTH AT BEDTIME NEEDED FOR ANXIETY / for SLEEP 10/06/20 22 2024 Discontinued pyridoxine (Vitamin B-6) 100 MG tablet TAKE 1 TABLET BY MOUTH EVERY DAY 90 DAYS 05/11/20 22 2024 Discontinued hydrOXYzine HCl (Atarax) 25 MG tabletIndication s:Paranoid schizophrenia (CMS/HCC) Take 1 tablet (25 mg) by mouth every 6 (six) hours if needed for anxiety. 120 tablet 11/30/19 24 2024 Discontinued metroNIDAZOLE (MetroCream) 0.75 % creamIndications :Rosacea Apply topically 2 times daily. Apply to affected areas of the face. 45 g 3 11/14/19 25 2024 Discontinued Active Problems Problem Noted Date Diagnosed Date History of renal calculi 01/11/2024 Schizophrenia 11/16/2023 Assessment & Plan (11/16/2023 10:07 AM EST): As above Upper back pain 11/16/2023 Assessment & Plan (11/16/2023 10:07 AM EST): Apply heat on affected area Acetaminophen PRN Hair loss 11/16/2023 Assessment & Plan (11/16/2023 10:07 AM EST): TSH levels ordered F/u with PCP Chest pain 11/02/2022 Overview (11/02/2022): - Presented to [facility] ED 07/25/22 with c/o chest tightness and left breast burning. Tachycardic on exam (HR 118) otherwise negative ACS evaluation. Suspected anxiety per ED note. - Similar sx prompted visit to walk in center 06/03/22 with normal EKG. Per visit note unclear if patient describing palpitations or muscle spasms. Class 1 obesity due to exces s calories with serious comorbidity and body mass index (BMI) of 33.0 to 33.9 in adult 11/02/2022 Overview (12/22/2023): Pt taking Topiramate 100mg b.i.d for migraine prevention, reports this has not helped with weight loss Referred to [facility] weight mgnmt 08/2022, denied due to lack of comorbidity Metformin 500mg b.I.d-tolerating well Assessment & Plan (12/22/2023 10:15 AM EDT): Metformin has been effective adjunct for patient along with diet/exercise Continue 500mg b.I.d At follow up plan to check B12 Healthcare maintenance 11/02/2022 Overview (12/22/2023): Mammo: 01/12/2022, bi-rads 1, followed by [facility] [employer] Pap: 01/2023 Neg HPV neg, followed by [facility] C-scope: 08/2015 neg; repeat 08/2025 BMD: Routine age 65 Immunizations: Up to date Assessment & Plan (12/22/2023 10:15 AM EDT): Updated mammogram ordered Patient will call to scheduled annual [employer] exam Assessment & Plan (04/25/2023 4:48 PM EDT): Multivitamin sent to the pharmacy Constipation 09/23/2017 Chloasma 06/10/2017 Vitamin D deficiency 08/17/2016 Bipolar I disorder 08/21/2015 Overview (02/22/2023): ?? Followed by outside psychiatry and therapy ?? Clonazepam, topiramate, clonidine, cogentin, haldol Assessment & Plan (11/16/2023 10:07 AM EST): Do not miss appointment with psychiatrist on 11/24/2023 Take medications prescribed at discharge as prescribe Labs for lithium monitoring ordered today Assessment & Plan (02/22/2023 6:39 AM EDT): ?? Continue current regimen per psych ?? Has crisis number. Denies current SI or thoughts of self harm Hypercholesterolemia 08/21/2015 Overview (02/22/2023): ?? Atorvastatin 80mg daily ?? ASCVD 2.1% 11/26/2022 Assessment & Plan (02/22/2023 6:36 AM EDT): ?? Continue current regimen Assessment & Plan (11/16/2022 3:58 PM EST): ?? Repeat labs today ?? Follow up pending results Migraine 08/21/2015 Resolved Problems Problem Noted Date Diagnosed Date Resolved Date Vaginal discomfort 05/10/2023 4 Overview (05/10/2023): -Likely yeast infection. -Treat with clotrimazole. -BV swab sent. Assessment & Plan (05/10/2023 2:19 PM EDT): -Likely yeast infection. -Treat with clotrimazole. -BV swab sent. Encounters Date Type Department Care Team Description 01/08/2025 10:00 AM EDT Office Visit [facility] [address] [place] [phone] Charlotte Laureano FNP Healthcare maintenance (Primary Dx); Encounter for immunization; Tremor of face and hands; Dietary counseling; Exercise counseling 01/08/2025 Travel 01/02/2025 Telephone [facility] [address] [place] [phone] Charlotte Laureano FNP Medication Question 01/01/2025 Orders Only GENERIC EXTERNAL DATA DEPARTMENT Provider, Generic External Data 12/28/2024 Patient Outreach [facility] [address] [place] [phone] Charlotte Laureano FNP Pre-visit Planning (SDOH screening completed on 10/27/2024) 12/25/2024 9:30 AM EDT Office Visit [facility] [address] [place] [phone] Doc Garzon DMD 12/22/2024 Population Health Risk Score [facility] [address] [phone] Provider, Population Health Generic 12/07/2024 Refill [facility] [address] [place] [phone] Charlotte Laureano FNP 11/14/2024 3:00 PM EST Office Visit [facility] [address] [place] [phone] Leana Valdovinos MD Rosacea (Primary Dx); Acute bilateral back pain, unspecified back location 11/14/2024 Travel 11/08/2024 Telephone [facility] [address] [place], [place] [phone] [place] [facility] No Show 10/27/2024 Patient Outreach [facility] [address] [place] [phone] [facility] Pre-visit Planning (SDOH screening negative and tobacco screening negative) from Last 3 Months Immunizations Name Administration Dates Next Due Hep A, Adult 04/02/2016,05/15/2015 Hep B, adult 05/31/2017,04/02/2016,05/15/2015 Influenza Injectable Quadriv alant Preservative Free IIV4 MDCK 08/13/2021 Influenza injectable quadriv alent IIV4 with preservative 08/24/2017,08/17/2016,08/21/2015 Influenza injectable quadriv alent preservative free 06/29/2023,07/27/2022,10/21/2020,2019,08/08/2019,09/09/2018 Influenza, IIV3, injectable 07/25/2014, 9 Influenza, Split (incl. hattie fied surface antigen) 07/05/2013,08/02/2012 Influenza, seasonal, injecta ble, preservative free 06/27/2024 MMR 05/22/2015,05/15/2015 Pfizer Covid-19 Vaccine 12+ 09/01/2024, Pfizer Covid-19 Vaccine 12+ Bivalent 07/27/2022 Pneumococcal Conjugate PCV 20 01/08/2025 TD (adult), 2 Lf tetanus tox oid, preservative free, adsorbed 06/03/2007 Td (adult), 5 Lf tetanus tox oid, preservative free, adsorbed 04/17/2014 Tdap 11/13/2022,11/17/2012 Zoster, Recombinant 02/23/2019,12/15/2018 Social History Tobacco Use Types Packs/Day Years Used Date Smoking Tobacco: Never Passive Smoke Exposure: Never Smokeless Tobacco: Never Tobacco Cessation:Counseling Given: Not Answered Alcohol Use Standard Drinks/Week Comments Never 0 [...] Recorded Patient Health Questionnaire-2 Score 0 05/15/2024 Internet Access Answer Date Recorded Internet Access Q1 No 10/27/2024 Internet Access Q2 I do not want or need it 10/11 Comments Unknown Sex and Gender Information Value Date Recorded Sex Assigned at Female 08/10/2022 10:14 AM EDT Legal Sex Female 10:14 AM EDT Gender Identity Female 08/10/2022 10:14 AM EDT Sexual Orientation Choose not to disclose 2021 10:14 AM EDT Last Filed Vital Signs Vital Sign Reading Time Taken Comments Blood Pressure 121/82 01/08/2025 9:51 AM EDT Pulse 102 01/08/2025 9:51 AM EDT Temperature 36.4 ??C (97.6 ??F) 01/08/2025 9:51 AM ED T Respiratory Rate 16 01/08/2025 9:51 AM EDT Oxygen Saturation 97% 01/08/2025 9:51 AM EDT Inhaled Oxygen Concentration - - Weight 69 kg (152 lb 3.2 oz) 01/08/2025 9:51 AM EDT Height 160 cm (5' 3 ) 01/08/2025 9:51 AM EDT Body Mass Index 26.96 01/08/2025 9:51 AM EDT Plan of Treatment Upcoming Encounters Date Type Department Care Team (Late st Contact Info) Description 03/09/2025 3:30 PM EDT Office Visit [facility] [address] [place] [address] Roderick, Solange, OD [address] [place] [address] Health Maintenance Due Date Last Done Comments CT Colonography 1965 Dental Prophylaxis 1965 Dental X-Ray: Bitewings 1965 Dental X-Ray: Full Mouth 1965 FIT DNA/Cologuard 1965 FIT 1965 FOBT 1965 Sigmoidoscopy 1965 Alcohol/Substance Use Screening 1977 HPV/Cotest 1995 Mammogram 01/20/2025 01/21/2024, 04/0 04/2023, 01/15/2023, Additional history exists Depression Screening 05/15/2025 05/15/2024, 05/15/20 24 Dental Oral Exam 06/28/2025 12/25/2024, 12/21/2022 Colonoscopy 07/24/2025 07/24/2015 Colorectal Cancer Screening 07/24/2025 SDOH Screening 10/27/2025 10/27/2024 Tobacco Screening 01/08/2026 01/08/2025 Cervical Cancer Screening 02/01/2026 Pap Smear 02/01/2026 02/01/2023 Lipid Panel 07/08/2028 07/08/2023, 11/11, 03/24/2022, Additional history exists DTaP/Tdap/Td Vaccines (4 - Td or Tdap) 11/13/2032 11/13/2022, 04/17/2014, 11/17/2012, Additional history exists RSV Patients and Patients Aged 60 years or older (1 - 1-dose 75+ series) 2040 Hepatitis A Vaccines Aged Out 04/02/2016, 05/15/20 15 No longer eligible based on patient's age to complete this topic Hepatitis B Vaccines Completed 05/31/2017, 04/02/2016, 05/15/2015 Zoster Vaccines Completed 02/23/2019, 12/15/2018 HIV Screening Completed 11/24/2022, 05/28/2020 Hepatitis C Screening Completed 11/24/2022 Influenza Vaccine Completed 06/27/2024, , 07/27/2022, Additional history exists COVID-19 Vaccine Completed 09/01/2024, 12/2023, 07/27/2022, Additional history exists Pneumococcal Vaccine: 50+ Years Completed 01/08/2025 HIB Vaccines Aged Out No longer eligi ble based on patient's age to complete this topic HPV Vaccines Aged Out No longer eligi ble based on patient's age to complete this topic IPV Vaccines Aged Out No longer eligi ble based on patient's age to complete this topic Meningococcal Vaccine Aged Out No bruce teresa eligible based on patient's age to complete this topic RSV under 20 months Aged Out No longe r eligible based on patient's age to complete this topic Rotavirus Vaccines Aged Out No longer eligible based on patient's age to complete this topic Procedures Procedure Name Priority Date/Time Associated Diagnosis Comments GLUCOSE, WHOLE BLOOD Routine 01/01/2025 9:48 AM EDT CASE PRESENTATION, DETAILED AND EXTENSIVE TREATMENT PLANNING Routine 12/25/2024 9:30 AM EDT PERIODIC ORAL EVALUATION - ESTABLISHED PATIENT Routine 12/25/2024 9:30 AM EDT BI MAMMOGRAM SCREENING TOMOSYNTHESIS BILATERAL Routine 01/21/2024 9:50 AM EDT LIPID PANEL, STANDARD Routine 07/08/2023 1:24 PM EDT Mixed hyperlipidemia HM PAP/HPV Routine 02/01/2023 HEPATITIS C AB W/REFL TO HCV RNA, QN, PCR Routine 11/24/2022 8:33 AM EST Health care maintenance HIV 1/2 ANTIGEN/ANTIBODY, FOURTH GENERATION W/RFL Routine 11/24/2022 8:33 AM EST Health care maintenance HM COLONOSCOPY Routine 07/24/2015 8:38 AM EDT from Last 3 Months or Most Recently Relevant to Health Maintenance Results * Glucose, Whole Blood (01/01/2025 9:48 AM EDT) Glucose, Whole Blood 94 60 - 115 mg/dL [facility] Comment:METER #: [id number] 01/01/2025 9:48 AM EDT 01/01/2025 9:56 AM EDT us Generic External Data Provider LAB BLOOD ORDERAB LES Final Result [facility] [address] [place] [address] [phone] * BI Mammogram Screening Tomosynthesis Bilateral (01/21/2024 9:50 AM EDT) Anatomical Region Laterality Modality Breast Bilateral Mammography 01/21/2024 9:50 AM EDT Narrative 02/04/2024 3:26 PM EDT ? [facility] ? [address] ?[place] [phone] ? Mammography Report ? Signed ? Patient: Colon,Caro ?MR#: [id number] ?? 3 ? : 1965 ?Acct:[id number] ? Age/Sex: 58 / F ?ADM Date: /12/24 ? Loc: HO.MAMMO ? Attending Dr: Rosemary Germain MD ? Ordering Physician: Rosemary Germain MD ?Results: 2Beni ?? gn Findings ? Date of Service: 01/21/24 ?Follow Up: 1 Year From Orig ?? inal Mammogram ? Procedure(s): MM tomosynthesis screening BI ?? Accession Number(s): [id number] ? cc: Rosemary Germain MD ? EXAMINATION: ?? MM SCREENING DIGITAL BREAST TOMOSYNTHESIS, BILATERAL ? CLINICAL INFORMATION: ? Screening. Asymptomatic. ? COMPARISON: ?? Mammography: This study is compared with prior exams dating back to ?? 2019. ? TECHNIQUE: ?? Digital breast tomosynthesis is performed in both the craniocaudal and ?? mediolateral oblique views along with computer-aided detection (CAD). ?? Synthesized 2D images are generated from the tomosynthesis. ? FINDINGS: ?? There are scattered areas of fibroglandular density (ACR BI-RADS breast ?? composition Category b). ? There are no significant masses, abnormal calcifications, or other ?? abnormalities. ? There is a tissue marker in the upper outer quadrant of the right ?? breast from prior benign percutaneous biopsy. ? MM/MM tomosynthesis screening BI ?? IMPRESSION: ?? No mammographic evidence of malignancy. ? ASSESSMENT: ? BI-RADS BI-RADS 2 - Benign Findings ? RECOMMENDATION: ?? Routine annual mammography screening. ? 1 year F/U ? This examination should not preclude the clinical evaluation of a ?? suspicious palpable abnormality. ? This patient's information was entered into a reminder system with a ?? target due date for their next mammogram. ? Dictated By: ?Ivon Elder MD ? Signed By: ?<Electronically signed by Ivon Elder MD in OV> ? 02/04/24 1522 ? DD/ 0950 ? TD/TT: ? Civil Design Specialist: ? Procedure Note Michelle, Clement - 02/04/2024 [facility] [address] [place] [address] Mammography Report Signed Patient: Itzel Duncan EMR#: [id number] 3 : 1965Acct:[id number] Age/Sex: 58 / FADM Date: 01/21/24 Loc: HO.MAMMO Attending Dr: Rosemary Germain MD Ordering Physician: Rosemary Germain MDResults: 2Beni gn Findings Date of Service: 01/21/24Follow Up: 1 Year From Orig inal Mammogram Procedure(s): MM tomosynthesis screening BI Accession Number(s): [id number] cc: Rosemary Germain MD EXAMINATION: MM SCREENING DIGITAL BREAST TOMOSYNTHESIS, BILATERAL CLINICAL INFORMATION: Screening. Asymptomatic. COMPARISON: Mammography: This study is compared with prior exams dating back to 2019. TECHNIQUE: Digital breast tomosynthesis is performed in both the craniocaudal and mediolateral oblique views along with computer-aided detection (CAD). Synthesized 2D images are generated from the tomosynthesis. FINDINGS: There are scattered areas of fibroglandular density (ACR BI-RADS breast composition Category b). There are no significant masses, abnormal calcifications, or other abnormalities. There is a tissue marker in the upper outer quadrant of the right breast from prior benign percutaneous biopsy. MM/MM tomosynthesis screening BI IMPRESSION: No mammographic evidence of malignancy. ASSESSMENT: BI-RADS BI-RADS 2 - Benign Findings RECOMMENDATION: Routine annual mammography screening. 1 year F/U This examination should not preclude the clinical evaluation of a suspicious palpable abnormality. This patient's information was entered into a reminder system with a target due date for their next mammogram. Dictated By: Ivon Elder MD Signed By: <Electronically signed by Ivon Elder MD in OV> 02/04/24 1522 DD/ 0950 TD/TT: Civil Design Specialist: us Rosemary Germain MD IMG BI PROCEDURES Final Resul t * Lipid Panel, Standard (07/08/2023 1:24 PM EDT) Triglycerides 136 <150 mg/dL [facility] Comment:Desirable Triglyceri de: less than 150 mg/dLBorderline High Triglyceride 150-199 mg/dLHigh Triglyceride: 200-499 mg/dLVery High Triglyceride: greater than or equal to 5OO mg/dL Cholesterol 154 <200 mg/dL [facility] Comment:Desirable Cholestero l: less than 200 mg/dLBorderline High Cholesterol: 200-239 mg/dLHigh Cholesterol: greater than 239 mg/dL LDL Cholesterol Calculated 75 <100 mg/dL [facility] Comment:Desirable LDL: less than 100 mg/dLNear Optimal/Above Optimal LDL: 110- 129 mg/dLBorderline High LDL: 130-159 mg/dLHigh LDL: 160-189 mg/dLVery High LDL: greater than or equal to 190 mg/dL HDL Cholesterol 52 >40 mg/dL [facility] Comment:Desirable HDL: great er than 40 mg/dL Note: This HDL assay may give artificially low results in patients with liver disease. Blood Venous blood specimen / Unknown 07/08/2023 1:24 PM EDT 07/08/2023 3:54 PM EDT [facility] [employer] LAB BLOOD ORDERABLES Final Re sult [facility] [address] [place] [phone] * Pap Smear (02/01/2023) Pap smear PERFORMED Comment:HPV MRNA NOT DETECTE D Historical Provider HEALTH MAINTENANCE Final Result * Hepatitis C Antibody with Reflex to HCV, RNA, Quantitative, Real-Time PCR (11/24/2022 8:33 AM EST) Hepatitis C Antibody NON-REACT MALIA NON-REACT MALIA [facility] [place] [facility] Index 0.05 <1.00 [facility] [place] [facility] Comment: HCV antibody was non-reactive. There is no laboratory evidence of HCV infection. In most cases, no further action is required. However, if recent HCV exposure is suspected, a test for HCV RNA (test code 40444) is suggested. For additional information please refer to http://Queralt.Minervax/faq/JRX04g4 (This link is being provided for informational/ educational purposes only.) Blood Venous blood specimen / Unknown 11/24/2022 8:33 AM EST 11/24/2022 8:34 AM EST Narrative [facility] - 11/24/2022 8:43 PM EST FASTING:YES FASTING: YES [facility] LAB BLOOD ORDERABLES Final Re sult [facility] [address] [facility], [place] [address] [facility] [place] [employer] [address] [facility], ([address]) [place] [address] * HIV-1/2 Antigen and Antibodies, Fourth Generation, with Reflexes (11/24/2022 8:33 AM EST) [facility] HIV Antigen/Antibody, 4th Generation NON-REAC TIVE NON-REAC TIVE [facility] [place] [facility] Comment: HIV-1 antigen and HIV-1/HIV-2 antibodies were not detected. There is no laboratory evidence of HIV infection. PLEASE NOTE: This information has been disclosed to you from records whose confidentiality may be protected by state law. ??If your state requires such protection, then the state law prohibits you from making any further disclosure of the information without the specific written consent of the person to whom it pertains, or as otherwise permitted by law. A general authorization for the release of medical or other information is NOT sufficient for this purpose. ?? For additional information please refer to http://Queralt.Minervax/faq/BRT764 (This link is being provided for informational/ educational purposes only.) The performance of this assay has not been clinically validated in patients less than 2 years old. Blood Venous blood specimen / Unknown 11/24/2022 8:33 AM EST 11/24/2022 8:34 AM EST Narrative [facility] - 11/24/2022 8:43 PM EST FASTING:YES FASTING: YES [facility] LAB BLOOD ORDERABLES Final Re sult [facility] [address] [facility], [address], [place] [address] [facility] [place] [facility] [address] , [address] [place] [address] * Hm Colonoscopy (07/24/2015 8:38 AM EDT) Historical Provider MD HEALTH MAINTENANCE Final Result from Last 3 Months or Most Recently Relevant to Health Maintenance Insurance [facility] C3 DENTAL-[facility] MEDICAID STAND ADULT Care Teams Pot Builder Relationship Specialty Start Date End Date Charlotte Laureano FNP [address] [place] [phone] PCP - General Family Medicine 06/09/22
--- OUTSIDE RECORDS SUMMARY | 2025-01-16 08:16 | XMS_ITS | Encounter Summary ---
Author Organization [employer] Address [address] [facility] 7 [place] [address] Care Team Providers Care Derrick Builder Name Role Phone [facility] Primary Care Provider [phone] Reason for Visit * Reason Onset Date Comments call back 11/26/2022 Encounter Details Date Type Department Care Team ([facility] st Contact Info) Description 11/26/2022 Telephone [facility] [address] [place], [place] [phone] [facility] 230 [place] [address] call back Social History Tobacco Use Types Packs/Day Years [...] encounter Miscellaneous Notes * Telephone Encounter - Kathryn Bhatia RN - 11/26/2022 11:58 AM EST TC returned to pt at [phone], utilizing [employer] Advisor ID:[id number], regarding message belowper [facility]. Pt informed labs show high cholesterol and pt advised on lifestyle recommendations such as low fat diet, limiting red meats, fried fatty foods, eating more fish, fruits, vegetables, whole grains, low fat dairy and pt informed all other labs normal/negative. Pt verbalized understanding and reports she eats grilled salmon, fruits, water. RN offered to sent pt information on diet in mail. Pt verbalized understanding. Pt's address on file confirmed. Pt informed she can obtain copy of labs at [facility] Medical Records in basement. Pt verbalized understanding. Pt to F/U as needed. ----- Message from [facility] sent at 11/26/2022 8:44 AM EST ----- Please let patient know that labs show high cholesterol. Lifestyle recommendations advised. All other labs normal/negative. Thank you! Tc from pt returning call back. Pt requesting a call back * Telephone Encounter - Mike Serna - 11/26/2022 10:24 AM EST Tc from pt returning call back. Pt requesting a call back documented in this encounter Plan of Treatment Upcoming Encounters Date Type Department Care Team (Late st Contact Info) Description 03/09/2025 3:30 PM EDT Office Visit [facility] [address] [place] [address] Solange Vaughn, OD 230 [place] [address] documented as of this encounter Visit Diagnoses Not on filedocumented in this encounter Additional Health Concerns Assessment Noted Time PHQ-9 Depression Total Score: 0 11/13/19 23 1:38 PM EST documented as of this encounter Care Teams Derrick Builder Relationship Specialty Start Date End Date [facility] [address] [place] [address] PCP - General Family Medicine 06/09/22 documented as of this encounter
--- OUTSIDE RECORDS SUMMARY | 2025-01-16 08:16 | XMS_ITS | Encounter Summary ---
Author Organization [employer] Address [address] [facility] 7t [place] [address] Care Team Providers Care Yarn Weigher Name Role Phone [facility] Primary Care Provider [phone] Reason for Visit * Reason Onset Date Comments Hospital Follow-up 11/04/2023 Encounter Details Date Type Department Care Team ([facility] st Contact Info) Description 11/04/2023 Telephone [facility] [address] [place], [place] [phone] [facility] 230 [place], [place] [phone] Hospital Follow-up Social History Tobacco Use Types Packs/Day Years [...] your housing situation today? I have vivian sing 07/19/[address] you li [...] encounter Miscellaneous Notes * Telephone Encounter - Sherif Rod - 11/04/2023 8:42 AM EST Tc from Radha at [facility] requesting a HDF follow up appt for the patient. Tc from pt requesting a HDF appt. Hospital: [facility] Date of admission: 10/28 Discharge date: 11/04 Diagnosed: schizophrenia Disorder Please Call [facility] at [phone] documented in this encounter Plan of Treatment Upcoming Encounters Date Type Department Care Team (Late st Contact Info) Description 03/09/2025 3:30 PM EDT Office Visit [facility] [address] [place] [address] Solange Vaughn, OD 230 [place] [address] documented as of this encounter Visit Diagnoses Not on filedocumented in this encounter Additional Health Concerns Assessment Noted Time PHQ-9 Depression Total Score: 0 10/13/19 24 11:29 AM EST documented as of this encounter Care Teams Yarn Weigher Relationship Specialty Start Date End Date Charlotte Laureano FNP 230 [place] [address] PCP - General Family Medicine 06/09/22 documented as of this encounter
--- OUTSIDE RECORDS SUMMARY | 2025-01-16 08:16 | XMS_ITS | Encounter Summary ---
Author Organization [employer] Address [address] [facility] 7t [place] [address] Care Team Providers Care In Home Tutor Name Role Phone [facility] Primary Care Provider [phone] Reason for Visit * Reason Onset Date Comments Nurse Triage 11/09/2023 Encounter Details Date Type Department Care Team ([facility] st Contact Info) Description 11/09/2023 Telephone [facility] 230 [place], [place] [phone] [facility] 230 [place], [place] [phone] Nurse Triage Social History Tobacco Use Types [...] Telephone Encounter - Jenna Valerio RN - 11/09/2023 1:57 PM EST Attempted call for triage x2. Pt didn't answer ,message received that voice mail box is not set up yet unable to leave message at this time. * Telephone Encounter - Sherif Rod - 11/09/2023 1:46 PM EST Symptom: Hair Loss Outcome: Schedule an appointment to be seen within 3 days Reason: This is the only possible outcome for this symptom The caller accepted this outcome documented in this encounter Plan of Treatment Upcoming Encounters Date Type Department Care Team (Late st Contact Info) Description 03/09/2025 3:30 PM EDT Office Visit [facility] [address] [place] [address] Roderick, Solange, OD [address] [place] [address] documented as of this encounter Visit Diagnoses Not on filedocumented in this encounter Additional Health Concerns Assessment Noted Time PHQ-9 Depression Total Score: 0 10/13/19 24 11:29 AM EST documented as of this encounter Care Teams In Home Tutor Relationship Specialty Start Date End Date Charlotte Laureano FNP [address] [place] [address] PCP - General Family Medicine 06/09/22 documented as of this encounter
--- OUTSIDE RECORDS SUMMARY | 2025-01-16 08:16 | XMS_ITS | Encounter Summary ---
Author Organization [employer] Address [address] [facility] 7t [place] [address] Care Team Providers Care Wheel Assembler Name Role Phone [facility] Primary Care Provider [phone] Reason for Visit * Reason Onset Date Comments Referral 12/31/2023 Encounter Details Date Type Department Care Team ([facility] st Contact Info) Description 12/31/2023 Telephone [facility] 230 [place], [place] [phone] [facility] 230 [place] [address] Referral Social History Tobacco Use Types Packs/Day Years [...] encounter Miscellaneous Notes * Telephone Encounter - Tahmina Elder RN - 12/31/2023 10:05 AM EDT Pt requesting a referral to the vision center at [facility]. A referral had been placed on 05/20/23 to [facility] eyecare for a history of glaucoma. Pt needs a new referral placed. Forwarding to provider * Telephone Encounter - Cami Workman - 12/31/2023 9:47 AM EDT TC from pt requesting new referral to vision center . Location: [facility] Address: [address] [facility] documented in this encounter Plan of Treatment Upcoming Encounters Date Type Department Care Team (Late st Contact Info) Description 03/09/2025 3:30 PM EDT Office Visit [facility] [address] [place] [address] Sloange Vaughn, OD [address] [place] [address] documented as of this encounter Visit Diagnoses Not on filedocumented in this encounter Additional Health Concerns Assessment Noted Time PHQ-9 Depression Total Score: 0 12/22/19 24 9:02 AM EDT documented as of this encounter Care Teams Wheel Assembler Relationship Specialty Start Date End Date Charlotte Laureano FNP 230 [place] [address] PCP - General Family Medicine 06/09/22 documented as of this encounter
--- OUTSIDE RECORDS SUMMARY | 2025-01-16 08:16 | XMS_ITS | Encounter Summary ---
Author Organization [employer] Address [address] [facility] 7t [place] [address] Care Team Providers Care Mine Shifter Name Role Phone [facility] Primary Care Provider [phone] Encounter Details Date Type Department Care Team (Late Contact Info) Description 01/22/2023 Telephone [facility]INE 230 [place], [place] [phone] [facility] [address] [place] [address] Social History Tobacco Use Types Packs/Day Years [...] Description 03/09/2025 3:30 PM EDT Office Visit [facility] [address] [place], [place] [phone] Solange Vaughn, OD [address] [place] [address] documented as of this encounter Visit Diagnoses Not on filedocumented in this encounter Additional Health Concerns Assessment Noted Time PHQ-9 Depression Total Score: 0 11/13/19 23 1:38 PM EST documented as of this encounter Care Teams Mine Shifter Relationship Specialty Start Date End Date Georgi DAO Porter 230 [place] [address] PCP - General Family Medicine 06/09/22 documented as of this encounter
--- OUTSIDE RECORDS SUMMARY | 2025-01-16 08:16 | XMS_ITS | Encounter Summary ---
Author Organization [employer] Address 75 [facility] 7t [place] [address] Care Team Providers Care Education Coordinator Name Role Phone [facility] Primary Care Provider [phone] Reason for Visit * Reason Onset Date Comments Results 10/14/2023 Encounter Details Date Type Department Care Team ([facility] Contact Info) Description 10/14/2023 Telephone [facility] 230 [place], [place] [phone] [facility] 230 [place] [address] Results Social History Tobacco Use Types Packs/Day [...] encounter Miscellaneous Notes * Telephone Encounter - Anjali Ames - 10/15/2023 11:10 AM EST Tc from pt calling in regards to results. Please contact pt at [phone] * Telephone Encounter - Maria De Jesus Shultz - 10/15/2023 9:06 AM EST Tc from pt calling in regards to results. Please contact pt at [phone] * Telephone Encounter - Maria De Jesus Shultz - 10/14/2023 2:43 PM EST TC from pt requesting call back regarding Results. Type of results: labs Date when done: 10/13 Facility: [facility] documented in this encounter Plan of Treatment Upcoming Encounters Date Type Department Care Team (Late st Contact Info) Description 03/09/2025 3:30 PM EDT Office Visit [facility] [address] [place] [address] Roderick Solange, OD [address] [place] [address] documented as of this encounter Visit Diagnoses Not on filedocumented in this encounter Additional Health Concerns Assessment Noted Time PHQ-9 Depression Total Score: 0 10/13/19 24 11:29 AM EST documented as of this encounter Care Teams Education Coordinator Relationship Specialty Start Date End Date Charlotte Laureano FNP [address] [place] [address] PCP - General Family Medicine 06/09/22 documented as of this encounter
--- OUTSIDE RECORDS SUMMARY | 2025-01-16 08:16 | XMS_ITS | Encounter Summary ---
Author Organization [employer] Address [address] [facility] 7t [place] [address] Care Team Providers Care Crime Scene Photographer Name Role Phone [facility] Primary Care Provider [phone] Encounter Details Date Type Department Care Team ([facility] st Contact Info) Description 01/19/2024 Orders Only [facility] MEDICINE [address] [place], [place] [phone] ProviderNidia MD Social History Tobacco Use Types Packs/Day Years [...] Description 03/09/2025 3:30 PM EDT Office Visit [facility] [address] [place], [place] [phone] Solange Vaughn, OD 230 [place] [address] documented as of this encounter Procedures Procedure Name Priority Date/Time Associated Diagnosis Comments COLONOSCOPY Routine 07/24/2015 8:38 AM EDT documented in this encounter Results * Hm Colonoscopy (07/24/2015 8:38 AM EDT) us Historical Provider HEALTH MAINTENANCE Final Result documented in this encounter Visit Diagnoses Not on filedocumented in this encounter Additional Health Concerns Assessment Noted Time PHQ-9 Depression Total Score: 0 12/22/19 24 9:02 AM EDT documented as of this encounter Care Teams Crime Scene Photographer Relationship Specialty Start Date End Date Charlotte Laureano FNP 230 [place] [address] PCP - General Family Medicine 06/09/22 documented as of this encounter
--- OUTSIDE RECORDS SUMMARY | 2025-01-16 08:16 | XMS_ITS | Encounter Summary ---
Author Organization [employer] Address [address] [facility] 7t [place] [address] Care Team Providers Care Philanthropy Officer Name Role Phone [facility] Primary Care Provider [phone] Reason for Visit * Reason Onset Date Comments Lab Orders 02/25/2023 Encounter Details Date Type Department Care Team ([facility] st Contact Info) Description 02/25/2023 Telephone [facility] 230 [place], [place] [phone] [facility] [address] [place] [address] Lab Orders Social History Tobacco Use Types [...] suspected to have Coronavirus/COVID-19? No / Unsure 02/17/2023 8:36 AM EDT documented as of this encounter Miscellaneous Notes * Telephone Encounter - Radha Nix RN - 03/15/2023 10:27 AM EDT T/C to [phone] through [employer] , Message states , The number you are calling isnot a working number, Please try again later. . Interpreters try second time, same message. Numberis not working. * Telephone Encounter - Suzanna Garcia - 03/11/2023 9:53 AM EDT Tc from patient re calling in regards to message below. * Telephone Encounter - Apoorva Sims RN - 02/26/2023 4:49 PM EDT T/C placed to pt via [employer] Mar[facility] #[id number]. Pt states she would like a lab ordered as she would like to know whether or not she has diabetes. Pt denies symptoms and does not report family history of diabetes. Advised will send request to pcp for review. * Telephone Encounter - Anjali Ames - 02/25/2023 4:35 PM EDT Tc from pt requesting blood work to be check for diabetes. Please contact pt at [phone] documented in this encounter Plan of Treatment Upcoming Encounters Date Type Department Care Team (Late st Contact Info) Description 03/09/2025 3:30 PM EDT Office Visit [facility] [address] [place] [address] Roderick, Solange, OD [address] [place] [address] documented as of this encounter Visit Diagnoses Not on filedocumented in this encounter Additional Health Concerns Assessment Noted Time PHQ-9 Depression Total Score: 0 11/13/19 23 1:38 PM EST documented as of this encounter Care Teams Philanthropy Officer Relationship Specialty Start Date End Date Charlotte Laureano FNP [address] [place] [address] PCP - General Family Medicine 06/09/22 documented as of this encounter
--- OUTSIDE RECORDS SUMMARY | 2025-01-16 08:16 | XMS_ITS | Encounter Summary ---
Author Organization [employer] Address [address] [facility] 7t [place] [address] Care Team Providers Care Security Orderly Name Role Phone [facility] Primary Care Provider [phone] Encounter Details Date Type Department Care Team ([facility] st Contact Info) Description 07/27/2024 Telephone [facility]ICINE 230 [place], [place] [phone] [facility] [address] [place] [address] Social History Tobacco Use Types Packs/Day Years [...] Access Answer Date Recorded Internet Access Q1 Yes 06/12/2024 Internet Access Q2 Not on file 06/12/2024 Comments Unknown Sex and Gender Information Value [...] Description 03/09/2025 3:30 PM EDT Office Visit [facility] [address] [place] [address] Roderick, Solange, OD [address] [place] [address] documented as of this encounter Visit Diagnoses Not on filedocumented in this encounter Additional Health Concerns Assessment Noted Time PHQ-9 Depression Total Score: 0 05/15/20 24 8:48 AM EDT documented as of this encounter Care Teams Security Orderly Relationship Specialty Start Date End Date Charlotte Laureano FNP [address] [place] [address] PCP - General Family Medicine 06/09/22 documented as of this encounter
== END 2025-01-16 09:30 | disposition home or self-care (01) ==
PROVIDERS: PCP Family Medicine; Visit Provider Nurse Practitioner Family
DX: K59.01 Slow transit constipation (principal); Z98.890 Other specified postprocedural states
CPT/HCPCS: 99213

== ENCOUNTER → 2025-01-16 08:06 | Outpatient (BNVA) | payer MEDICAID, SELFPAY | PROVIDERS: PCP Family Medicine; Visit Provider Nurse Practitioner Family | DX: K59.01 Slow transit constipation (principal); Z98.890 Other specified postprocedural states | CPT/HCPCS: 99212 ==

== ENCOUNTER 2025-01-26 09:46 | Outpatient (REF) | payer MEDICAID, SELFPAY ==
--- OUTSIDE RECORDS SUMMARY | 2025-01-26 10:26 | XMS_ITS | Encounter Summary ---
Author Organization [email or web address] Address [address] [place] [address] 7 [place] [address] Care Team Providers Care Auto Hauler Name Role Phone [facility] Primary Care Provider [phone] Reason for Visit * Reason Onset Date Comments Lab Orders 11/16/2022 Encounter Details Date Type Department Care Team ([facility] st Contact Info) Description 11/16/2022 Telephone [facility] 230 [place], [place] [phone] [facility] 230 [place] [address] Lab Orders Social History Tobacco Use Types [...] blood work order Please contact pt at [phone] documented in this encounter Plan of Treatment Upcoming Encounters Date Type Department Care Team (Late st Contact Info) Description 03/09/2025 3:30 PM EDT Office Visit [facility] [address] [place] [address] Solange Vaughn, OD [address] [place] [address] documented as of this encounter Visit Diagnoses Not on filedocumented in this encounter Additional Health Concerns Assessment Noted Time PHQ-9 Depression Total Score: 0 11/13/19 23 1:38 PM EST documented as of this encounter Care Teams Auto Hauler Relationship Specialty Start Date End Date Charlotte Laureano FNP [address] [place] [address] PCP - General Family Medicine 06/09/22 documented as of this encounter
--- OUTSIDE RECORDS SUMMARY | 2025-01-26 10:26 | XMS_ITS | Encounter Summary ---
Author Organization [employer] Address [address] [facility] 7t [place] [address] Care Team Providers Care Cloth Roll Winder Name Role Phone [facility] Primary Care Provider [phone] Encounter Details Date Type Department Care Team (Late Contact Info) Description 01/22/2023 Telephone [facility] MEDICINE [address] [place], [place] [phone] [facility] 230 [place] [address] Social History Tobacco Use Types Packs/Day Years [...] Description 03/09/2025 3:30 PM EDT Office Visit [facility] [address] [place], [place] [phone] Solange Vaughn, OD 230 [place] [address] documented as of this encounter Visit Diagnoses Not on filedocumented in this encounter Additional Health Concerns Assessment Noted Time PHQ-9 Depression Total Score: 0 11/13/19 23 1:38 PM EST documented as of this encounter Care Teams Cloth Roll Winder Relationship Specialty Start Date End Date Georgi DAO Porter 230 [place] [address] PCP - General Family Medicine 06/09/22 documented as of this encounter
--- OUTSIDE RECORDS SUMMARY | 2025-01-26 10:26 | XMS_ITS | Clinical Summary ---
Author Organization [employer] Address [address] [employer] 7t [place] [address] Care Team Providers Care Ambulance Operations Supervisor Name Role Phone [facility] Primary Care Provider [phone] Allergies Active Allergy Reactions Criticality Noted Date Comments Amoxicillin 09/23/2017 Other reaction(s): hair loss [place] 09/09/2018 Other reaction(s): Rash, Rash Risperidone 02/01/2014 [...] pain 11/02/2022 Overview (11/02/2022): - Presented to [facility] ED 07/25/22 with c/o chest tightness and [...] not helped with weight loss Referred to [facility] weight mgnmt 08/2022, denied due to lack of comorbidity Metformin 500mg b.I.d-tolerating well Assessment & Plan (12/22/2023 10:15 AM EDT): Metformin has been effective adjunct for patient along with diet/exercise Continue 500mg b.I.d At follow up plan to check B12 Healthcare maintenance 11/02/2022 Overview (12/22/2023): Mammo: 01/12/2022, bi-rads 1, followed by [facility] OFFSET SECOND PRESS OPERATOR Pap: 01/2023 Neg HPV neg, followed by [facility] C-scope: 08/2015 neg; repeat 08/2025 BMD: Routine age 65 Immunizations: Up to date Assessment & Plan (12/22/2023 10:15 AM EDT): Updated mammogram ordered Patient will call to scheduled annual OFFSET SECOND PRESS OPERATOR exam Assessment & Plan (04/25/2023 4:48 PM [...] Description 01/08/2025 10:00 AM EDT Office Visit [facility] MEDICINE [address] [place] [address] [place] Laureano FNP Healthcare maintenance (Primary Dx); Encounter for immunization; Tremor of face and hands; Dietary counseling; Exercise counseling 01/08/2025 Travel 01/02/2025 Telephone [facility] MEDICINE [address] [place] [address] [place] Laureano FNP Medication Question 01/01/2025 Orders Only GENERIC EXTERNAL DATA DEPARTMENT Provider, Generic External Data 12/28/2024 Patient Outreach [facility] MEDICINE [address] [place] [address] [place] Laureano FNP Pre-visit Planning (SDOH screening completed on 10/27/2024) 12/25/2024 9:30 AM EDT Office Visit [facility] ADULT DENTAL [address] [place] [address] Doc Garzon DMD 12/22/2024 Population Health Risk Score [facility] Department [address] [phone] Provider, Population Health Generic 12/07/2024 Refill [facility] MEDICINE [address] [place] [address] [place] Laureano FNP 11/14/2024 3:00 PM EST Office Visit [facility] WALK-IN CENTER [address] [place] [address] Leana Valdovinos MD Rosacea (Primary Dx); Acute bilateral back pain, unspecified back location 11/14/2024 Travel 11/08/2024 Telephone [facility] MEDICINE [address] [place] [address] [phone] [place], [place], [facility] No Show from Last 3 Months Immunizations Name Administration [...] MMR 05/22/2015,05/15/2015 Pfizer Covid-19 Vaccine 12+ 09/01/2024, 4 Pfizer Covid-19 Vaccine 12+ Bivalent 07/27/2022 Pneumococcal [...] 03/09/2025 3:30 PM EDT Office Visit [facility] OPTOMETRY [address] [place] [address] Solange Vaughn, OD [address] [place] [address] Health Maintenance Due Date Last Done Comments CT Colonography 1965 Dental Prophylaxis 1965 Dental X-Ray: Bitewings 1965 Dental X-Ray: Full Mouth 1965 FIT DNA/Cologuard 1965 FIT 1965 FOBT 1965 Sigmoidoscopy 1965 Alcohol/Substance Use Screening 1977 HPV/Cotest 1995 Mammogram 01/20/2025 01/21/2024, 040 04/2023, 01/15/2023, Additional history exists Depression Screening [...] Whole Blood 94 60 - 115 mg/dL [facility] Comment:METER #: [id number] 01/01/2025 9:48 AM EDT 01/01/2025 9:56 AM EDT us Generic External Data Provider LAB BLOOD ORDERAB LES Final Result [facility] [address] [place] [address] [phone] * BI Mammogram Screening Tomosynthesis Bilateral (01/21/2024 9:50 AM EDT) Anatomical Region Laterality Modality Breast Bilateral Mammography 01/21/2024 9:50 AM EDT Narrative 02/04/2024 3:26 PM EDT ? [facility] [place] ? [address] ?[place] [address] ? Mammography Report ? Signed ? Patient: Colon,Caro ?MR#: [id number] ?? 3 ? : 1965 ?Acct:[id number] ? Age/Sex: 58 / F ?ADM Date: //24 ? Loc: HO.MAMMO ? Attending Dr: Rosemary Germain MD ? Ordering Physician: Rosemary Germain MD ?Results: 2Beni ?? gn Findings ? Date of Service: 01/20/24 ?Follow Up: 1 Year From Orig ?? inal Mammogram ? Procedure(s): MM tomosynthesis screening BI ?? Accession Number(s): [id number] ? cc: Rosemary Germain MD ? EXAMINATION: [...] 1522 ? DD/ 0950 ? TD/TT: ? Psychologist Military Personnel: ? Procedure Note Michelle, Image - 02/04/2024 [place] [facility] [address] [place], [place] [address] Mammography Report Signed Patient: Itzel Duncan EMR#: [id number] 3 : 1965Acct:[id number] Age/Sex: 58 / FADM Date: 01/21/24 Loc: HO.MAMMO Attending Dr: Rosemary Germain MD Ordering Physician: Rosemary Germain MDResults: 2Beni gn Findings Date of Service: 01/21/24Follow Up: 1 Year From Orig inal Mammogram Procedure(s): MM tomosynthesis screening BI Accession Number(s): [id number] cc: Rosemary Germain MD EXAMINATION: MM SCREENING [...] in OV> 02/04/24 1522 DD/ 0950 TD/TT: Psychologist Military Personnel: us Rosemary Germain MD IMG BI PROCEDURES Final Resul t * Lipid Panel, Standard (07/08/2023 1:24 PM EDT) Triglycerides 136 <150 mg/dL [facility] Comment:Desirable Triglyceri de: less than 150 mg/dLBorderline High Triglyceride 150-199 mg/dLHigh Triglyceride: 200-499 mg/dLVery High Triglyceride: greater than or equal to 5OO mg/dL Cholesterol 154 <200 mg/dL [facility] Comment:Desirable Cholestero l: less than 200 mg/dLBorderline High Cholesterol: 200-239 mg/dLHigh Cholesterol: greater than 239 mg/dL LDL Cholesterol Calculated 75 <100 mg/dL [facility] Comment:Desirable LDL: less than 100 mg/dLNear Optimal/Above Optimal LDL: 110- 129 mg/dLBorderline High LDL: 130-159 mg/dLHigh LDL: 160-189 mg/dLVery High LDL: greater than or equal to 190 mg/dL HDL Cholesterol 52 >40 mg/dL [facility] Comment:Desirable HDL: great er than 40 mg/dL Note: This HDL assay may give artificially low results in patients with liver disease. Blood Venous blood specimen / Unknown 07/08/2023 1:24 PM EDT 07/08/2023 3:54 PM EDT [facility] DIRECTOR DESIGN LAB BLOOD ORDERABLES Final Re sult [facility] [address] [place] [phone] * Pap Smear (02/01/2023) Pathologist [facility] Pap smear PERFORMED Comment:HPV MRNA NOT DETECTE D Historical Provider HEALTH MAINTENANCE Final Result * Hepatitis C Antibody with Reflex to HCV, RNA, Quantitative, Real-Time PCR (11/24/2022 8:33 AM EST) Pathologist [facility] Hepatitis C Antibody NON-REACT MALIA NON-REACT MALIA [employer] Index 0.05 <1.00 [employer] Comment: HCV antibody was non-reactive. There is no laboratory evidence of HCV infection. In most cases, no further action is required. However, if recent HCV exposure is suspected, a test for HCV RNA (test code 12879) is suggested. For additional information please refer to http://education.Marin Software/faq/RNH42n6 (This link is being provided for informational/ educational purposes only.) Blood Venous blood specimen / Unknown 11/24/2022 8:33 AM EST 11/24/2022 8:34 AM EST Narrative [facility] - 11/24/2022 8:43 PM EST FASTING:YES FASTING: YES [facility] LAB BLOOD ORDERABLES Final Re sult [facility] [address], [place] [address] [employer] optronicst [address] [facility], (Nl2) [place] [address] * HIV-1/2 Antigen and Antibodies, Fourth Generation, with Reflexes (11/24/2022 8:33 AM EST) [facility] HIV Antigen/Antibody, 4th Generation NON-REAC TIVE NON-REAC TIVE [employer] Comment: HIV-1 antigen and HIV-1/HIV-2 antibodies [...] ?? For additional information please refer to http://education.SwipeClock.Featurespace/faq/TIG776 (This link is being provided for informational/ educational purposes only.) The performance of this assay has not been clinically validated in patients less than 2 years old. Blood Venous blood specimen / Unknown 11/24/2022 8:33 AM EST 11/24/2022 8:34 AM EST Narrative [facility] - 11/24/2022 8:43 PM EST FASTING:YES FASTING: YES [facility] LAB BLOOD ORDERABLES Final Re sult [address], [place] [address] [employer] [facility] [address], ([address]) [place] [address] * Colonoscopy (07/24/2015 8:38 AM EDT) us Historical Provider MD HEALTH MAINTENANCE Final Result from Last 3 Months or Most Recently Relevant to Health Maintenance Insurance [facility] C3 DENTAL-[facility] MEDICAID STAND ADULT Care Teams Ambulance Operations Supervisor Relationship Specialty Start Date End Date [place] Laureano FNP [address] [place] [address] PCP - General Family Medicine 06/09/22
--- OUTSIDE RECORDS SUMMARY | 2025-01-26 10:26 | XMS_ITS | Encounter Summary ---
Author Organization [email or web address] Address [address] [facility] 7t [place] [address] Care Team Providers Care Spa Director/Finance Name Role Phone [facility] Primary Care Provider [phone] Encounter Details Date Type Department Care Team ([facility] st Contact Info) Description 07/27/2024 Telephone [facility] MEDICINE [address] [place], [place] [phone] [place] [facility] [address] [place] [address] Social History Tobacco Use Types Packs/Day Years [...] Description 03/09/2025 3:30 PM EDT Office Visit [facility] OPTOMETRY [address] [place] [address] Roderick, Solange, OD 230 [place] [address] documented as of this encounter Visit Diagnoses Not on filedocumented in this encounter Additional Health Concerns Assessment Noted Time PHQ-9 Depression Total Score: 0 05/15/20 24 8:48 AM EDT documented as of this encounter Care Teams Spa Director/Finance Relationship Specialty Start Date End Date [place] Laureano FNP [address] [place] [address] PCP - General Family Medicine 06/09/22 documented as of this encounter
--- OUTSIDE RECORDS SUMMARY | 2025-01-26 10:26 | XMS_ITS | Encounter Summary ---
Author Organization [employer] Address [address] [facility] 7 [place] [address] Care Team Providers Care Green Promotions Specialist Name Role Phone [facility] Primary Care Provider [phone] Reason for Visit * Reason Onset Date Comments Lab Orders 11/23/2022 Encounter Details Date Type Department Care Team ([facility] st Contact Info) Description 11/23/2022 Telephone [facility] MEDICINE [address] [place], [place] [phone] [employer] [address] [place] [address] Lab Orders Social History Tobacco Use Types [...] blood work order Please contact pt at [phone] documented in this encounter Plan of Treatment Upcoming Encounters Date Type Department Care Team (Late st Contact Info) Description 03/09/2025 3:30 PM EDT Office Visit [facility] OPTOMETRY [address] [place], [place] [phone] Solange Vaughn, OD [address] [place] [address] documented as of this encounter Visit Diagnoses Not on filedocumented in this encounter Additional Health Concerns Assessment Noted Time PHQ-9 Depression Total Score: 0 11/13/19 23 1:38 PM EST documented as of this encounter Care Teams Green Promotions Specialist Relationship Specialty Start Date End Date [place] Laureano FNP [address] [place] [address] PCP - General Family Medicine 06/09/22 documented as of this encounter
--- OUTSIDE RECORDS SUMMARY | 2025-01-26 10:26 | XMS_ITS | Encounter Summary ---
Author Organization [employer] Address [address] [place] [address] 7 [place] [address] Care Team Providers Care Plate Worker Name Role Phone [facility] Primary Care Provider [phone] Reason for Visit * Reason Onset Date Comments Lab Orders 12/07/2022 Encounter Details Date Type Department Care Team ([facility] Contact Info) Description 12/07/2022 Telephone [facility] MEDICINE [address] [place] [address] [facility] [address] [place] [address] Lab Orders Social History Tobacco Use Types [...] Upcoming Encounters Date Type Department Care Team ([facility] Contact Info) Description 03/09/2025 3:30 PM EDT Office Visit [facility] OPTOMETRY [address] [place] [address] Roderick, Solange, OD [address] [place] [address] documented as of this encounter Visit Diagnoses Not on filedocumented in this encounter Additional Health Concerns Assessment Noted Time PHQ-9 Depression Total Score: 0 11/13/19 23 1:38 PM EST documented as of this encounter Care Teams Plate Worker Relationship Specialty Start Date End Date [place] Laureano FNP [address] [place] [address] PCP - General Family Medicine 06/09/22 documented as of this encounter
--- OUTSIDE RECORDS SUMMARY | 2025-01-26 10:26 | XMS_ITS | Encounter Summary ---
Author Organization [employer] Address [address] [facility] 7 [place] [address] Care Team Providers Care Carbide Die Maker Name Role Phone [facility] Primary Care Provider [phone] Reason for Visit * Reason Onset Date Comments Lab Orders 02/25/2023 Encounter Details Date Type Department Care Team ([facility] st Contact Info) Description 02/25/2023 Telephone [facility] MEDICINE [address] [place], [place] [phone] [facility] [address] [place] [address] Lab Orders Social History Tobacco Use Types [...] - 03/15/2023 10:27 AM EDT T/C to [phone] through [employer] , Message states , The number you [...] PM EDT T/C placed to pt via [employer] Ana María #[id number]. Pt states she would like a lab [...] check for diabetes. Please contact pt at [phone] documented in this encounter Plan of Treatment Upcoming Encounters Date Type Department Care Team (Late st Contact Info) Description 03/09/2025 3:30 PM EDT Office Visit [facility] OPTOMETRY [address] [place] [address] Roderick, Solange, OD [address] [place] [address] documented as of this encounter Visit Diagnoses Not on filedocumented in this encounter Additional Health Concerns Assessment Noted Time PHQ-9 Depression Total Score: 0 11/13/19 23 1:38 PM EST documented as of this encounter Care Teams Carbide Die Maker Relationship Specialty Start Date End Date [place] Laureano FNP [address] [place] [address] PCP - General Family Medicine 06/09/22 documented as of this encounter
--- OUTSIDE RECORDS SUMMARY | 2025-01-26 10:26 | XMS_ITS | Encounter Summary ---
Author Organization [employer] Address [address] [facility] 7 [place] [address] Care Team Providers Care Corporate Communications Associate Name Role Phone [facility] Primary Care Provider [phone] Reason for Visit * Reason Onset Date Comments call back 11/26/2022 Encounter Details Date Type Department Care Team ([facility] st Contact Info) Description 11/26/2022 Telephone [facility] MEDICINE 230 [place], [place] [phone] [facility] [address] [place] [address] call back Social History Tobacco Use Types [...] AM EST TC returned to pt at [phone], utilizing [employer] Technician ID:[id number], regarding message belowper [facility]. Pt informed labs show high cholesterol and [...] she can obtain copy of labs at [facility] Medical Records in basement. Pt verbalized understanding. Pt to F/U as needed. ----- Message from [facility] sent at 11/26/2022 8:44 AM EST ----- [...] Description 03/09/2025 3:30 PM EDT Office Visit [facility] OPTOMETRY [address] [place] [address] Solange Vaughn, OD [address] [place] [address] documented as of this encounter Visit Diagnoses Not on filedocumented in this encounter Additional Health Concerns Assessment Noted Time PHQ-9 Depression Total Score: 0 11/13/19 23 1:38 PM EST documented as of this encounter Care Teams Corporate Communications Associate Relationship Specialty Start Date End Date [facility] [address] [place] [address] PCP - General Family Medicine 06/09/22 documented as of this encounter
--- OUTSIDE RECORDS SUMMARY | 2025-01-26 10:27 | XMS_ITS | Encounter Summary ---
Author Organization [employer] Address [address] [facility] 7 [place] [address] Care Team Providers Care Conditioning Coach Name Role Phone [facility] Primary Care Provider [phone] Reason for Visit * Reason Onset Date Comments Med Refill 03/31/2024 Encounter Details Date Type Department Care Team ([facility] st Contact Info) Description 03/31/[address] [facility] MEDICINE [address] [place], [place] [phone] [facility] 230 [place], [place] [phone] Med Refill Social History Tobacco Use Types [...] 9:40 AM EDT Script was sent to [facility] on 02/07/24 90 day supply with 2 refills. * Telephone Encounter - Stefania Cardenas - 03/31/2024 9:25 AM EDT TC from pt requesting medication refill. Medications needing refill : metFORMIN XR (Glucophage-XR) 500 MG 24 hr tablet To be sent to: [facility] - [place], [place] - [address] [facility] documented in this encounter Plan of Treatment Upcoming Encounters Date Type Department Care Team (Late st Contact Info) Description 03/09/2025 3:30 PM EDT Office Visit [facility] OPTOMETRY [address] [place] [address] Solange Vaughn, OD [address] [place] [address] documented as of this encounter Visit Diagnoses Not on filedocumented in this encounter Additional Health Concerns Assessment Noted Time PHQ-9 Depression Total Score: 0 12/22/19 24 9:02 AM EDT documented as of this encounter Care Teams Conditioning Coach Relationship Specialty Start Date End Date MunithCharlotte FNP [address] [place] [address] PCP - General Family Medicine 06/09/22 documented as of this encounter
--- OUTSIDE RECORDS SUMMARY | 2025-01-26 10:27 | XMS_ITS | Encounter Summary ---
Author Organization [employer] Address [address] [facility] 7t [place] [address] Care Team Providers Care Importer Exporter Name Role Phone [facility] Primary Care Provider [phone] Encounter Details Date Type Department Care Team ([facility] st Contact Info) Description 01/25/2024 Telephone [facility] MEDICINE 230 [place], [place] [phone] [facility] [address] [place] [address] Social History Tobacco Use Types Packs/Day Years [...] Description 03/09/2025 3:30 PM EDT Office Visit [facility] OPTOMETRY [address] [place] [address] Roderick, Solange, OD [address] [place] [address] documented as of this encounter Visit Diagnoses Not on filedocumented in this encounter Additional Health Concerns Assessment Noted Time PHQ-9 Depression Total Score: 0 12/22/19 24 9:02 AM EDT documented as of this encounter Care Teams Importer Exporter Relationship Specialty Start Date End Date [place] Laureano FNP [address] [place] [address] PCP - General Family Medicine 06/09/22 documented as of this encounter
--- OUTSIDE RECORDS SUMMARY | 2025-01-26 10:27 | XMS_ITS | Encounter Summary ---
Author Organization [employer] Address [address] [facility] 7t [place] [address] Care Team Providers Care Manager Testing Name Role Phone [facility] Primary Care Provider [phone] Reason for Visit * Reason Onset Date Comments Results 10/14/2023 Encounter Details Date Type Department Care Team ([facility] Contact Info) Description 10/14/2023 Telephone [facility] MEDICINE 230 [place], [place] [phone] [facility] [address] [place] [address] Results Social History Tobacco Use Types Packs/Day [...] regards to results. Please contact pt at [phone] * Telephone Encounter - Maria De Jesus Shultz - 10/15/2023 9:06 AM EST Tc from pt calling in regards to results. Please contact pt at [phone] * Telephone Encounter - Maria De Jesus Shultz - 10/14/2023 2:43 PM EST TC from pt requesting call back regarding Results. Type of results: labs Date when done: 10/13 Facility: [facility] documented in this encounter Plan of Treatment Upcoming Encounters Date Type Department Care Team (Late st Contact Info) Description 03/09/2025 3:30 PM EDT Office Visit [facility] OPTOMETRY [address] [place] [address] Roderick Solange, OD [address] [place] [address] documented as of this encounter Visit Diagnoses Not on filedocumented in this encounter Additional Health Concerns Assessment Noted Time PHQ-9 Depression Total Score: 0 10/13/19 24 11:29 AM EST documented as of this encounter Care Teams Manager Testing Relationship Specialty Start Date End Date Charlotte Laureano FNP [address] [place] [address] PCP - General Family Medicine 06/09/22 documented as of this encounter
--- OUTSIDE RECORDS SUMMARY | 2025-01-26 10:27 | XMS_ITS | Encounter Summary ---
Author Organization [employer] Address [address] [facility] 7t [place] [address] Care Team Providers Care Residential Roofer Name Role Phone [facility] Primary Care Provider [phone] Encounter Details Date Type Department Care Team ([facility] st Contact Info) Description 01/19/2024 Orders Only [facility] MEDICINE [address] [place], [place] [phone] ProviderNidia MD Social History Tobacco Use Types [...] Description 03/09/2025 3:30 PM EDT Office Visit [facility] OPTOMETRY [address] [place], [place] [phone] Solange Vaughn, OD [address] [place] [address] documented as of this encounter Procedures Procedure [...] documented as of this encounter Care Teams Residential Roofer Relationship Specialty Start Date End Date [place] Laureano FNP [address] [place] [address] PCP - General Family Medicine 06/09/22 documented as of this encounter
--- OUTSIDE RECORDS SUMMARY | 2025-01-26 10:27 | XMS_ITS | Encounter Summary ---
Author Organization [employer] Address [address] [facility] 7t [place] [address] Care Team Providers Care Instrumentation And Controls Designer Name Role Phone [facility] Primary Care Provider [phone] Reason for Visit * Reason Onset Date Comments Nurse Triage 11/09/2023 Encounter Details Date Type Department Care Team ([facility] st Contact Info) Description 11/09/2023 Telephone [facility] MEDICINE 230 [place], [place] [phone] [facility] 230 [place], [place] [phone] Nurse Triage Social History Tobacco Use Types [...] Visit [facility] OPTOMETRY [address] [place] [address] Roderick, Solange, OD [address] [place] [address] documented as of this encounter Visit Diagnoses Not on filedocumented in this encounter Additional Health Concerns Assessment Noted Time PHQ-9 Depression Total Score: 0 10/13/19 24 11:29 AM EST documented as of this encounter Care Teams Instrumentation And Controls Designer Relationship Specialty Start Date End Date [place] Laureano FNP [address] [place] [address] PCP - General Family Medicine 06/09/22 documented as of this encounter
--- OUTSIDE RECORDS SUMMARY | 2025-01-26 10:27 | XMS_ITS | Encounter Summary ---
Author Organization [employer] Address [address] [facility] 7t [place] [address] Care Team Providers Care Security Threat Analyst Name Role Phone [facility] Primary Care Provider [phone] Reason for Visit * Reason Onset Date Comments Results 11/17/2023 Encounter Details Date Type Department Care Team ([facility] Contact Info) Description 11/17/2023 Telephone [facility] MEDICINE [address] [place], [place] [phone] [facility] [address] [place] [address] Results Social History Tobacco Use Types Packs/Day [...] a PAP smear. Please contact pt at [phone] * Telephone Encounter - Dony Hanson - [...] Description 03/09/2025 3:30 PM EDT Office Visit [facility] OPTOMETRY [address] [place] [address] Roderick, Solange, OD [address] [place], [place] [phone] documented as of this encounter Visit Diagnoses Not on filedocumented in this encounter Additional Health Concerns Assessment Noted Time PHQ-9 Depression Total Score: 0 10/13/19 24 11:29 AM EST documented as of this encounter Care Teams Security Threat Analyst Relationship Specialty Start Date End Date Charlotte Laureano FNP [address] [place] [address] PCP - General Family Medicine 06/09/22 documented as of this encounter
--- OUTSIDE RECORDS SUMMARY | 2025-01-26 10:27 | XMS_ITS | Encounter Summary ---
Author Organization [employer] Address [address] [place] [address] 7t [place] [address] Care Team Providers Care Fruit Or Nut Farmer Name Role Phone [facility] Primary Care Provider [phone] Reason for Visit * Reason Onset Date Comments Results 07/12/2023 Encounter Details Date Type Department Care Team ([facility] st Contact Info) Description 07/12/2023 Telephone [facility] MEDICINE [address] [place], [place] [phone] [facility] [address] [place] [address] Results Social History Tobacco Use Types Packs/Day [...] 11:46 AM EDT T/C to pt. Through [employer] id - [id number] for below message, pt. Was informed regarding normal lipids labs. Pt. Verbally agreed and understood. * Telephone Encounter - Stefania Cardenas - 07/13/2023 4:17 PM EDT Pt calling again requesting a call in regards to results of 07/08 labs. Please contact pt at [phone] (Cameroonian) * Telephone Encounter - Maria De Jesus Shultz - 07/12/2023 9:14 AM EDT Tc from pt requesting a call in regards to results of 07/08 labs. Please contact pt at [phone] (Cameroonian) documented in this encounter Plan of Treatment Upcoming Encounters Date Type Department Care Team (Late st Contact Info) Description 03/09/2025 3:30 PM EDT Office Visit [facility] OPTOMETRY [address] [place] [address] Roderick, Solange, OD [address] [place] [address] documented as of this encounter Visit Diagnoses Not on filedocumented in this encounter Additional Health Concerns Assessment Noted Time PHQ-9 Depression Total Score: 0 04/27/20 23 9:47 AM EDT documented as of this encounter Care Teams Fruit Or Nut Farmer Relationship Specialty Start Date End Date Charlotte Laureano FNP [address] [place] [address] PCP - General Family Medicine 06/09/22 documented as of this encounter
--- OUTSIDE RECORDS SUMMARY | 2025-01-26 10:27 | XMS_ITS | Encounter Summary ---
Author Organization [employer] Address [address] [facility] 7t [place] [address] Care Team Providers Care Plumbing Mechanic Name Role Phone [facility] Primary Care Provider [phone] Encounter Details Date Type Department Care Team ([facility] st Contact Info) Description 05/25/2024 Orders Only [facility] [address] [place], [place] [phone] Noreen Krishnamurthy RN Social History Tobacco Use [...] 3:30 PM EDT Office Visit [facility] OPTOMETRY [address] [place], [place] [phone] RoderickSolange meng, OD [address] [place] [address] documented as of this encounter Visit Diagnoses Not on filedocumented in this encounter Additional Health Concerns Assessment Noted Time PHQ-9 Depression Total Score: 0 05/15/20 24 8:48 AM EDT documented as of this encounter Care Teams Plumbing Mechanic Relationship Specialty Start Date End Date Charlotte Laureano FNP [address] [place] [address] PCP - General Family Medicine 06/09/22 documented as of this encounter
--- OUTSIDE RECORDS SUMMARY | 2025-01-26 10:27 | XMS_ITS | Encounter Summary ---
Author Organization [employer] Address [address] [facility] 7t [place] [address] Care Team Providers Care Piccoloist Name Role Phone [facility] Primary Care Provider Reason for Visit * Reason Onset Date Comments Nurse Triage 11/10/2023 Encounter Details Date Type Department Care Team ([facility] st Contact Info) Description 11/10/2023 Telephone [facility] MEDICINE [address] [place], [place] [phone] [facility] [address] [place], [place] [phone] Nurse Triage Social History Tobacco Use Types [...] 10:49 AM EST Triage attempted x2 with Yeahka Recruitment Coordinator ID [id number] . Both call went directly to message [...] accepted this outcome Please contact pt at [phone] (yoruba) documented in this encounter Plan of Treatment Upcoming Encounters Date Type Department Care Team (Late st Contact Info) Description 03/09/2025 3:30 PM EDT Office Visit [facility] OPTOMETRY [address] [place] [address] Solange Vaughn, OD [address] [place] [address] documented as of this encounter Visit Diagnoses Not on filedocumented in this encounter Additional Health Concerns Assessment Noted Time PHQ-9 Depression Total Score: 0 10/13/19 24 11:29 AM EST documented as of this encounter Care Teams Piccoloist Relationship Specialty Start Date End Date [facility] DAO Porter [address] [place] [address] PCP - General Family Medicine 06/09/22 documented as of this encounter
--- OUTSIDE RECORDS SUMMARY | 2025-01-26 10:27 | XMS_ITS | Encounter Summary ---
Author Organization [employer] Address [address] [facility] 7t [place] [address] Care Team Providers Care Senior Cytotechnologist Name Role Phone [facility] Primary Care Provider [phone] Reason for Visit * Reason Onset Date Comments Med Refill 03/20/2024 Encounter Details Date Type Department Care Team ([facility] st Contact Info) Description 03/20/2024 Telephone [facility] MEDICINE [address] [place], [place] [phone] [facility] 230 [place], [place] [phone] Med Refill Social History Tobacco Use Types [...] 9:31 AM EDT Medication was sent to [facility] on 02/07/24 #180 with 2 refills. * Telephone Encounter - Stefania Cardenas - 03/20/2024 9:23 AM EDT TC from pt requesting medication refill. Medications needing refill : metFORMIN XR (Glucophage-XR) 500 MG 24 hr tablet To be sent to: [facility] - [place], [place] - [address] [facility] documented in this encounter Plan of Treatment Upcoming Encounters Date Type Department Care Team (Late st Contact Info) Description 03/09/2025 3:30 PM EDT Office Visit [facility] OPTOMETRY [address] [place] [address] Solange Vaughn, OD [address] [place] [address] documented as of this encounter Visit Diagnoses Not on filedocumented in this encounter Additional Health Concerns Assessment Noted Time PHQ-9 Depression Total Score: 0 12/22/19 24 9:02 AM EDT documented as of this encounter Care Teams Senior Cytotechnologist Relationship Specialty Start Date End Date [place] DAO Porter [address] [place] [address] PCP - General Family Medicine 06/09/22 documented as of this encounter
--- OUTSIDE RECORDS SUMMARY | 2025-01-26 10:27 | XMS_ITS | Encounter Summary ---
Author Organization [employer] Address [address] [facility] 7t [place] [address] Care Team Providers Care Mergers And Acquisitions Manager Name Role Phone [facility] Primary Care Provider [phone] Reason for Visit * Reason Onset Date Comments Referral 12/31/2023 Encounter Details Date Type Department Care Team ([facility] st Contact Info) Description 12/31/2023 Telephone [facility] MEDICINE [address] [place], [place] [phone] [facility] [address] [place] [address] Referral Social History Tobacco Use Types Packs/Day [...] a referral to the vision center at [facility]. A referral had been placed on 05/20/23 to [facility] eyecare for a history of glaucoma. Pt needs a new referral placed. Forwarding to provider * Telephone Encounter - Cami Workman - 12/31/2023 9:47 AM EDT TC from pt requesting new referral to vision center . Location: [facility] Address: [address] [facility] documented in this encounter Plan of Treatment Upcoming Encounters Date Type Department Care Team (Late st Contact Info) Description 03/09/2025 3:30 PM EDT Office Visit [facility] OPTOMETRY [address] [place] [address] Solange Vaughn, OD [address] [place] [address] documented as of this encounter Visit Diagnoses Not on filedocumented in this encounter Additional Health Concerns Assessment Noted Time PHQ-9 Depression Total Score: 0 12/22/19 24 9:02 AM EDT documented as of this encounter Care Teams Mergers And Acquisitions Manager Relationship Specialty Start Date End Date Charlotte Laureano FNP [address] [place] [address] PCP - General Family Medicine 06/09/22 documented as of this encounter
--- OUTSIDE RECORDS SUMMARY | 2025-01-26 10:27 | XMS_ITS | Encounter Summary ---
Author Organization [employer] Address [address] [facility] 7t [place] [address] Care Team Providers Care Payroll Human Resources Assistant Name Role Phone [facility] Primary Care Provider [phone] Reason for Visit * Reason Onset Date Comments Hospital Follow-up 11/04/2023 Encounter Details Date Type Department Care Team ([facility] st Contact Info) Description 11/04/2023 Telephone [facility] MEDICINE [address] [place], [place] [phone] [facility] [address] [place], [place] [phone] Hospital Follow-up Social History Tobacco Use Types [...] 8:42 AM EST Tc from Radha at [facility] requesting a HDF follow up appt for the patient. Tc from pt requesting a HDF appt. Hospital: [facility] Date of admission: 10/28 Discharge date: 11/04 Diagnosed: schizophrenia Disorder Please Call [facility] at [phone] documented in this encounter Plan of Treatment Upcoming Encounters Date Type Department Care Team (Late st Contact Info) Description 03/09/2025 3:30 PM EDT Office Visit [facility] OPTOMETRY [address] [place] [address] Solange Vaughn, OD [address] [place] [address] documented as of this encounter Visit Diagnoses Not on filedocumented in this encounter Additional Health Concerns Assessment Noted Time PHQ-9 Depression Total Score: 0 10/13/19 24 11:29 AM EST documented as of this encounter Care Teams Payroll Human Resources Assistant Relationship Specialty Start Date End Date Charlotte Laureano FNP [address] [place] [address] PCP - General Family Medicine 06/09/22 documented as of this encounter
== END 2025-01-26 09:47 | disposition home or self-care (01) ==
LOC: HO.MAMMO 09:46
PROVIDERS: PCP Family Medicine; Visit Provider Family Medicine
DX: Z12.31 Encounter for screening mammogram for malignant neoplasm of breast (principal)
CPT/HCPCS: 77063; 77067

== ENCOUNTER → 2025-01-26 13:15 | Outpatient (BNV) | payer MEDICAID, SELFPAY | PROVIDERS: PCP Family Medicine; Visit Provider Internal Medicine | DX: Z12.31 Encounter for screening mammogram for malignant neoplasm of breast (principal) | CPT/HCPCS: 77063; 77067 ==

== ENCOUNTER 2025-02-09 13:05 | Emergency (ER) | payer MEDICAID, SELFPAY ==
--- NOTE | ~2025-02-09 | CT_ITS ---
EXAMINATION: CT HEAD WITHOUT CONTRAST CLINICAL INFORMATION: tremors COMPARISON: March 27, 2023. TECHNIQUE: Contiguous axial imaging was performed from the skull base to vertex without intravenous administration of contrast. This CT examination was performed using dose optimization techniques as appropriate, variously including the following: *Automated exposure control *Adjustment of mA and/or kV according to patient size (this includes techniques or standardized protocols for targeted exams where dose is matched to indication/reason for exam; i.e. extremities or head) *Use of iterative reconstruction technique DLP: 589 mGy-cm FINDINGS: No acute intracranial hemorrhage, mass effect, midline shift, hydrocephalus or herniation. Green-white matter differentiation is normal. Posterior cranial fossa contents demonstrated no acute intracranial hemorrhage or mass effect. Sellar/suprasellar region demonstrated no gross masses. Calcified plaques in the cavernous supracavernous segments both ICAs. No air-fluid levels in the paranasal sinuses. Tympanic cavities and mastoid cells are aerated. CT/CT head/brain wo IV con IMPRESSION: No acute or structural brain abnormality by CT. Electronically signed by: Prince Macdonald MD 02/09/2025 03:27 PM EDT
[2025-02-09 13:17] VITALS: BP 124/76; PULSE 113; RESP 16; TEMP 36.9; O2SAT 100; BMI 25.4
--- NOTE | 2025-02-09 13:17 | ED_ITS ---
HPI - General Adult General Chief complaint: General Medical Stated complaint: R arm L leg Shake, Chills Time Seen by Provider: 02/09/25 13:43 Source: patient Mode of arrival: ambulatory Limitations: no limitations History of Present Illness ED Provider: Oscar Lombardo HPI narrative: 59 yold female with pmh of schizophrenia, anixety, history of kidney stones presents to the ED for tremors of extremities for the past 3 days. Patient denies any pmh of alcohol abuse or sudden stoppage use of clonazepam. Patient denies any slurred speech, loss of vision, fever, paralysis of extremiteis, nuasea, vomitting, or facial droop. Patient denies any drug use. Related Data Home Medications ?Medication ?Instructions ?Recorded ?Confirmed doxepin 25 mg capsule 25 - 50 mg PO BEDTIME 04/28/24 01/01/25 nortriptyline 25 mg capsule 25 mg PO BEDTIME 07/26/24 01/01/25 haloperidol 5 mg tablet 5 mg PO QAM 01/16/25 Previous Rx's ?Medication ?Instructions ?Recorded atorvastatin 80 mg tablet 1 tab PO BEDTIME 30 days #30 tabs 11/04/23 cholecalciferol (vitamin D3) 50 1 cap PO DAILY 30 days #30 caps 11/04/23 mcg (2,000 unit) capsule clonazepam 1 mg tablet 1 tab PO BEDTIME PRN anxiety 30 11/04/23 days #30 tabs lithium carbonate 450 mg 450 mg PO BID 30 days #60 tabs 11/04/23 tablet,extended release metformin 500 mg tablet,extended 500 mg PO QPM 30 days #30 tabs 11/04/23 release 24 hr multivitamin 1 tab PO DAILY 30 days #30 tabs 11/04/23 pyridoxine (vitamin B6) 100 mg 100 mg PO DAILY 90 days #90 tabs 11/04/23 tablet docusate sodium 100 mg capsule 100 mg PO BEDTIME #90 caps 04/28/24 bisacodyl 5 mg tablet,delayed 10 mg (2 x 5 mg) PO BEDTIME #180 07/26/24 release (Dulcolax (bisacodyl)) tabs Allergies Allergy/AdvReac Type Severity Reaction Status Date / Time No Known Allergies Allergy Verified 02/09/25 13:24 Review of Systems 2 Review of Systems: generalized tremors of body Yes all other systems are reviewed and are negative PMFSH Past Medical History Medical History (Updated 02/10/25 @ 00:01 by Lucinda Berry) Paranoid delusion Renal cyst Anxiety Elevated cholesterol Occasional tremors Surgical History (Updated 01/16/25 @ 08:53 by SILVIA Mckeon) Hx of colonoscopy Hx of section Hx of tubal ligation Social History Social History Household Members: None Housing: Apartment Do you presently have visiting nurse or other home services: No Alcohol intake: never Patient Tobacco Use Status: Never used Tobacco Tobacco use type: Cigarette e-Cigarette/Vaping Use: Former Use Second Hand Smoke Exposure: No Substance Use Type: Caffiene service: No Sexual orientation: Straight/Heterosexual Physical Exam ED Vital Signs: Vital Signs - 24 hr 02/09/25 18:30 02/09/25 19:48 Temperature 97.4 F 97.4 F Pulse Rate 74 74 Respiratory Rate 16 16 Blood Pressure 126/68 126/68 Pulse Oximetry 97 97 Oxygen Delivery Method Room Air Room Air BMI result Body Mass Index 25.4 Const General: cooperative, healthy appearing, comfortable, no acute distress, well developed, alert, awake and Physically active Orientation/consciousness: patient oriented x3 HENMT Head: Yes normal to inspection, Yes No palpable skull fracture present, Yes normocephalic and Yes atraumatic Eyes General: appearance normal, both eyes and all related structures Visual Schreiber: normal visual schreiber by confrontation Alignment and Position: alignment normal Periorbital: periorbital findings normal Eyelids: Yes eyelids normal Conjunctivae: conjunctivae normal Sclerae: sclerae normal Corneas: corneas normal Pupils: Equal, round and reactive pupils present EOM: EOMs intact bilaterally Direct Ophthalmoscopy: normal light reflex Neck Neck: Yes normal visual inspection, Yes full ROM, Yes no lymphadenopathy, Yes no meningeal signs, Yes trachea midline, Yes supple, No anterior neck swelling and No tender Chest Chest palpation & inspection: normal inspection of the chest and normal palpation of entire chest wall Resp Effort & Inspection: normal respiratory effort and able to speak in complete sentences Auscultation: clear to auscultation bilaterally Cardio Jugular venous distension: no JVD Heart sounds: S1 normal heart sound present and S2 normal heart sound present GI Inspection: Yes normal to inspection Palpation (GI): Soft to palpation, not firm, nontender, no guarding and not rigid General: Yes no CVA tenderness Back/Spine/Pelvis Back: no CVA tenderness and No back tenderness Skin General skin exam: no rashes or lesions noted, elasticity normal and turgor normal Neuro Other: NIH score is 0. Negative for neuro deficits. Positive for tremors of upper and lower extremity. Patient seems anxious General: patient oriented x3, gait normal, tone normal, moves all extremities, Normal light touch and pain sensation, no meningeal signs, no focal motor deficits, CN's II-XI intact bilaterally and normal sensation to monofilament Cranial nerves: Yes Equal, round and reactive pupils present Extrem General: Yes normal to inspection, Yes full ROM and Yes capillary refill normal Psych Appearance: grossly normal, well kempt and not disheveled Course Course Course Narrative: This is an RME performed by Anna Reyes [employer]: Additional HPI, ROS, PE not included below will be deferred to primary provider. Patient is a 59-year-old female who presents emergency department for evaluation of shakiness in the right arm and left leg x 3 days. yesterday while in the bank pulse a cold sensation entirely throughout her body as well as having dizziness in my head no pain. Presents emergency department today because the shakiness is not resolving and she can not tolerate it anymore Plan: Serum labs Medications Administered Discontinued Medications Generic Name Dose Route Start Last Admin Trade Name Bryant PRN Reason Stop Dose Admin Ibuprofen 800 mg 02/09/25 17:32 02/09/25 17:49 Ibuprofen 800 Mg Tablet PO 02/09/25 17:33 800 mg ONCE ONE Administration Lorazepam 2 mg 02/09/25 14:39 02/09/25 14:57 Lorazepam 1 Mg Tablet PO 02/09/25 14:40 2 mg ONCE ONE Administration Medical Decision Making Medical Decision Making [facility] Narrative: 59-year-old female history of anxiety and schizophrenia presents to ED for treatment of upper lower extremity for the past 3 days without any slurred speech, facial droop, paralysis of extremities, nausea, vomiting, or headache. Patient denies any history of alcohol abuse to indicate alcohol withdrawal symptoms. Patient denies sudden cut off of benzos which will indicate benzo withdrawal symptoms. Patient is comfortable in bed. Patient has gloves on and classic zone. Patient is not in his psychosis. We will get medical evaluation. 6:24pm: head CT scan normal. NIH score is 0. Not suspecting large vein occlusion. Not suspecting carotid dissection or vertebral / carotid insufficiency. No need for head CTA. Labs are normal negative for any electrolyte deficiency. Troponin negative. EKG negative STEMI. Patient is not in lithium toxicity. Patient informed to follow up with primary care provider. diagnosis tremors. Not suspecting new onset seizure. Patient never lost consciousness and never had any urinary / bowel incontinence. Not suspecting alcohol withdrawal or any benzo withdrawal. Presently patient is not having any tremors. Patient informed she will need to follow up with Neurology to make sure there is no neurological disorders. Patient explained worrisome signs and informed to return to the ED immediately. Not suspecting encephalitis, meningitis, epidural abscess, cauda equinus syndrome, lithium toxicity, or any oher life threatening etiology. Patient is no longer on lithium. EKG negative STEMI Differential Diagnosis Differential Diagnoses: The differential diagnosis associated with the presentation includes ( Tremors, anxiety, electrolyte deficiency) Admission/Observation Consideration of admission/observation: Escalation of care including admission/observation considered Lab Data MDM Lab Attestation statement: I reviewed the patient's lab results. 02/09/25 13:45 02/09/25 13:45 Labs: Lab Results 02/09/25 02/09/25 Range/Units 13:45 17:37 WBC 6.9 (4.8-10.8) X10*3/uL RBC 4.71 (4.20-5.50) X10*6/uL Hgb 13.8 (12.0-16.0) g/dl Hct 41.4 (37.0-47.0) % MCV 87.9 (80.0-98.0) fL MCH 29.3 (27.0-33.0) pg MCHC 33.3 (31.0-35.0) g/dl RDW 12.5 (11.0-16.0) % Plt Count 228 (160-400) X10*3/uL MPV 10.4 (9.4-12.3) fL Immature Gran % (Auto) 0.3 (0.0-0.4) % Neut % (Auto) 63.9 (45-73) % Lymph % (Auto) 26.8 (20-40) % [place] % (Auto) 7.0 (2-11) % Eos % (Auto) 1.6 (0-4) % Baso % (Auto) 0.4 (0-2) % Lymph # (Auto) 1.8 (1.2-4.9) X10*3/uL [place] # (Auto) 0.5 (0.1-1.2) X10*3/uL Eos # (Auto) 0.1 (0.0-0.4) X10*3/uL Baso # (Auto) 0.0 (0.0-0.2) X10*3/uL Abs Immat Gran (auto) 0.02 (0.00-0.03) X10*3/uL Absolute Neuts (auto) 4.4 (2.0-8.3) x10*3/uL Absolute Nucleated RBC 0.000 (0.0-0.012) X10*3/uL Nucleated RBC % (auto) 0.0 (0.0-0.2) /100WBC Sodium 143 (135-145) mmol/L Potassium 4.0 (3.3-5.1) mmol/L Chloride 105 (96-108) mmol/L Carbon Dioxide 29 (22-29) mmol/L Anion Gap 13 (12-20) BUN 8 L (9-16) mg/dL Creatinine 0.68 (0.5-1.4) mg/dL Estim Creat Clear Calc 83.9 Estimated GFR > 60 Random Glucose 119 H (60-115) mg/dL Calcium 9.7 (8.4-10.2) mg/dL Magnesium 2.0 (1.6-2.6) mg/dL Total Bilirubin 0.4 (0.0-1.0) mg/dL AST 38 H (5-31) U/L ALT 41 H (0-31) U/L Alkaline Phosphatase 87 (39-117) U/L Troponin I High Sens < 2.7 (<3.5-17.0) ng/L Total Protein 7.1 (6.5-8.0) g/dL Albumin 4.5 (3.5-5.0) g/dL [place] < 0.10 L (0.60-1.20) mmol/L Influenza Type A (PCR) NEGATIVE (Negative) Influenza Type B (PCR) NEGATIVE (Negative) RSV RNA Qual (PCR) NEGATIVE (Negative) SARS-CoV-2 RNA (RT-PCR) NEGATIVE (Negative) Independent Interpretation I performed an independent interpretation of an: EKG ( normal sinus negative STEMI) and CT Scan Independent Historian Clinical information obtained from an independent historian. History obtained from or confirmed by: Other ( patient) Prescription Management I considered prescription management with: Pain Medication Discharge Plan Discharge Clinical Impression: Tremor Patient Disposition: Home, Self-Care Instructions: Tremors (ED) Additional Instructions: your labs EKG and CT scan of the head came back reassuring. You will need follow-up with primary care provider and neurologist. Return to the ED immediately for intractable tremors, loss of consciousness, urinary/ bowel incontinence, chest pain, shortness of breath, slurred speech, facial droop, loss of vision, paralysis of extremities, headache, weakness, dizziness, or any other concerning symptoms. CT HEAD WITHOUT CONTRAST CLINICAL INFORMATION: tremors COMPARISON: March 27, 2023. TECHNIQUE: Contiguous axial imaging was performed from the skull base to vertex without intravenous administration of contrast. This CT examination was performed using dose optimization techniques as appropriate, variously including the following: *Automated exposure control *Adjustment of mA and/or kV according to patient size (this includes techniques or standardized protocols for targeted exams where dose is matched to indication/reason for exam; i.e. extremities or head) *Use of iterative reconstruction technique DLP: 589 mGy-cm FINDINGS: No acute intracranial hemorrhage, mass effect, midline shift, hydrocephalus or herniation. Green-white matter differentiation is normal. Posterior cranial fossa contents demonstrated no acute intracranial hemorrhage or mass effect. Sellar/suprasellar region demonstrated no gross masses. Calcified plaques in the cavernous supracavernous segments both ICAs. No air-fluid levels in the paranasal sinuses. Tympanic cavities and mastoid cells are aerated. CT/CT head/brain wo IV con IMPRESSION: No acute or structural brain abnormality by CT. Electronically signed by: Prince Macdonald MD 02/09/2025 03:27 PM EDT Prescriptions: No Action lithium carbonate 450 mg Tablet Extended Release 450 mg PO BID 30 Days Qty: 60 0RF multivitamin Tablet 1 tab PO DAILY 30 Days Qty: 30 0RF atorvastatin 80 mg tablet 1 tab PO BEDTIME 30 Days Qty: 30 0RF clonazepam 1 mg tablet 1 tab PO BEDTIME PRN (Reason: anxiety) 30 Days Qty: 30 0RF pyridoxine (vitamin B6) 100 mg tablet 100 mg PO DAILY 90 Days Qty: 90 3RF metformin 500 mg tablet extended release 24 hr 500 mg PO QPM 30 Days Qty: 30 0RF cholecalciferol (vitamin D3) 50 mcg (2,000 unit) capsule 1 cap PO DAILY 30 Days Qty: 30 0RF doxepin 25 mg capsule 25 - 50 mg PO BEDTIME docusate sodium 100 mg capsule 100 mg PO BEDTIME Qty: 90 3RF nortriptyline 25 mg capsule 25 mg PO BEDTIME bisacodyl [Dulcolax (bisacodyl)] 5 mg tablet,delayed release (DR/EC) 10 mg PO BEDTIME Qty: 180 4RF haloperidol 5 mg tablet 5 mg PO QAM Referrals: Imtiaz Puckett MD [Physician] - ( Tremors) Stand Alone Forms: Work/School Release Interventions: ED Discharge Assessment Last Done: 02/09/25 19:48 Discharge Date/Time: 02/09/25 20:02 Print Language: Bahraini
--- NOTE | 2025-02-09 13:22 | ECG_ITS ---
Test Reason : DIZZINESS Blood Pressure : */* mmHG Vent. Rate : 94 BPM Atrial Rate : 94 BPM P-R Int : 144 ms QRS Dur : 74 ms QT Int : 340 ms P-R-T Axes : 57 16 40 degrees QTcB Int : 425 ms Normal sinus rhythm Normal ECG When compared with ECG of 26-Oct-2023 19:13, No significant change was found Referred By: Blanca Reyes Electronically Signed By: Yaw Osborn
[2025-02-09 13:50] LABS: MANUAL DIFF FLAG NO
[2025-02-09 13:54] LABS: Basophils Percent Auto 0.4 % (0-2); Eosinophils Absolute Auto 0.1 X10*3/uL (0.0-0.4); Eosinophils Percent Auto 1.6 % (0-4); Hematocrit 41.4 % (37.0-47.0); Hemoglobin 13.8 g/dl (12.0-16.0); Imm Gran Abs Auto 0.02 X10*3/uL (0.00-0.03); Imm Gran Pct Auto 0.3 % (0.0-0.4); Lymphocytes Absolute Auto 1.8 X10*3/uL (1.2-4.9); Lymphocytes Percent Auto 26.8 % (20-40); Mean Corpuscular HGB Conc 33.3 g/dl (31.0-35.0); Mean Corpuscular Hemoglobin 29.3 pg (27.0-33.0); Mean Corpuscular Volume 87.9 fL (80.0-98.0); Mean Platelet Volume 10.4 fL (9.4-12.3); Monocytes Absolute Auto 0.5 X10*3/uL (0.1-1.2); Neutrophils Absolute Auto 4.4 x10*3/uL (2.0-8.3); Neutrophils Percent Auto 63.9 % (45-73); Platelet Count 228 X10*3/uL (160-400); Red Blood Count 4.71 X10*6/uL (4.20-5.50); Red Cell Distribution Width 12.5 % (11.0-16.0); White Blood Count 6.9 X10*3/uL (4.8-10.8)
[2025-02-09 14:02] VITALS: BP 125/83; PULSE 102; RESP 16; TEMP 36.2; O2SAT 99
[2025-02-09 14:02] LABS: Lithium < 0.10 mmol/L (0.60-1.20)
[2025-02-09 14:10] LABS: Alanine Aminotransferase 41 U/L (0-31); Albumin Level 4.5 g/dL (3.5-5.0); Alkaline Phosphatase 87 U/L (39-117); Anion Gap 13 (12-20); Aspartate Amino Transferase 38 U/L (5-31); Bilirubin Total 0.4 mg/dL (0.0-1.0); Blood Urea Nitrogen 8 mg/dL (9-16); Calcium 9.7 mg/dL (8.4-10.2); Carbon Dioxide 29 mmol/L (22-29); Chloride 105 mmol/L (96-108); Creatinine Clr Calc Pharmacy 83.9; Estimated Glomerular Filt Rate > 60; Glucose Random 119 mg/dL (60-115); Sodium 143 mmol/L (135-145); Total Protein 7.1 g/dL (6.5-8.0)
--- NOTE | 2025-02-09 14:15 | PC.NURSE ---
59 yold female with pmh of schizophrenia, anixety, history of kidney stones presents to the ED for tremors of extremities for the past 3 days. Patient denies any pmh of alcohol abuse or sudden stoppage use of clonazepam. Patient denies any slurred speech, loss of vision, fever, paralysis of extremiteis, nuasea, vomitting, or facial droop. Patient denies any drug use. Alert and oriented. Follow commands but bizarre behavior noted, patient wearing dark sunglasses and black bicycle gloves. Respirations even and non-labored. Abdomen soft, non-tender. Plan for CT
--- OUTSIDE RECORDS SUMMARY | 2025-02-09 14:27 | XMS_ITS | Encounter Summary ---
Author Organization [employer] Address [address] [facility] [address] [place] [address] Care Team Providers Care Electrical Solderer Name Role Phone [facility] Primary Care Provider [phone] Reason for Visit * Reason Onset Date Comments Results 02/05/2025 Encounter Details Date Type Department Care Team ([facility] Contact Info) Description 02/05/2025 Telephone [facility] [address] [place], [place] [phone] [facility] [address] [place] [address] Results Social History Tobacco Use Types Packs/Day [...] encounter Miscellaneous Notes * Telephone Encounter - Mickie Bobby RN - 02/05/2025 1:19 PM EDT Pt. Walked in to clinic to inquire on results, pt. Was advised this test was ordered by her GI provider and directed to call their office. Pt. Verbalized understanding * Telephone Encounter - Isis Dos Santos - 02/05/2025 10:40 AM EDT TC from pt requesting call back regarding Results. Type of results: Colon Cancer Screening Test Date when done: Pt state dropped it over a week ago. Contact pt at [phone] (turkish) documented in this encounter Plan of Treatment Upcoming Encounters Date Type Department Care Team (Late st Contact Info) Description 03/09/2025 3:30 PM EDT Office Visit [facility] [address] [place], [place] [phone] RoderickSolange meng, OD [address] [place] [address] documented as of this encounter Visit Diagnoses Not on filedocumented in this encounter Additional Health Concerns Assessment Noted Time PHQ-9 Depression Total Score: 0 05/15/20 24 8:48 AM EDT documented as of this encounter Care Teams Electrical Solderer Relationship Specialty Start Date End Date Charlotte Laureano FNP [address] [place] [id number] PCP - General Family Medicine 06/09/22 documented as of this encounter
--- OUTSIDE RECORDS SUMMARY | 2025-02-09 14:27 | XMS_ITS | Encounter Summary ---
Author Organization [employer] Address [address] [facility] [address] [place] [address] Care Team Providers Care Health Care Marketing Specialist Name Role Phone [facility] Primary Care Provider [phone] Reason for Visit * Reason Onset Date Comments Med Refill 02/05/2025 Encounter Details Date Type Department Care Team ([facility] st Contact Info) Description 02/05/2025 Telephone [facility] [address] [place], [place] [phone] [facility] [address] [place], [place] [phone] Med Refill Social History Tobacco Use Types [...] encounter Miscellaneous Notes * Telephone Encounter - Jaimie Bhatia LPN - 02/05/2025 10:03 AM EDT Medication renewed on 02.02.25 * Telephone Encounter - Talisha Duncan - 02/05/2025 9:50 AM EDT TC from pt requesting medication refill. Medications needing refill : metFORMIN XR (Glucophage-XR) 500 MG 24 hr tablet To be sent to: [facility] pharmacy documented in this encounter Plan of Treatment Upcoming Encounters Date Type Department Care Team (Late st Contact Info) Description 03/09/2025 3:30 PM EDT Office Visit [facility] [address] [place] [address] Solange Vaughn, OD [address] [facility] [place] [address] documented as of this encounter Visit Diagnoses Not on filedocumented in this encounter Additional Health Concerns Assessment Noted Time PHQ-9 Depression Total Score: 0 05/15/20 24 8:48 AM EDT documented as of this encounter Care Teams Health Care Marketing Specialist Relationship Specialty Start Date End Date Maynard DAO Porter [address] [place] [address] PCP - General Family Medicine 06/09/22 documented as of this encounter
--- OUTSIDE RECORDS SUMMARY | 2025-02-09 14:27 | XMS_ITS | Encounter Summary ---
Author Organization [employer] Address [address] [facility] [address] [place] [address] Care Team Providers Care Product Safety Coordinator Name Role Phone [facility] Primary Care Provider [phone] Encounter Details Date Type Department Care Team (Late Contact Info) Description 01/22/[address] [facility] [address] [place], [place] [phone] [facility] [address] [place] [address] Social History Tobacco Use Types Packs/Day Years [...] Description 03/09/2025 3:30 PM EDT Office Visit [facility] [address] [place], [place] [phone] Solange Vaughn, OD [address] [place] [address] documented as of this encounter Visit Diagnoses Not on filedocumented in this encounter Additional Health Concerns Assessment Noted Time PHQ-9 Depression Total Score: 0 11/13/19 23 1:38 PM EST documented as of this encounter Care Teams Product Safety Coordinator Relationship Specialty Start Date End Date Georgi DAO Porter [address] [place] [address] PCP - General Family Medicine 06/09/22 documented as of this encounter
--- OUTSIDE RECORDS SUMMARY | 2025-02-09 14:27 | XMS_ITS | Encounter Summary ---
Author Organization [employer] Address [address] [facility] [address] [place] [address] Care Team Providers Care Assembler Skylights Name Role Phone [facility] Primary Care Provider [phone] Encounter Details Date Type Department Care Team ([facility] st Contact Info) Description 07/27/2024 Telephone [facility] [address] [place], [place] [phone] [facility] [address] [place] [address] Social History Tobacco Use Types Packs/Day Years [...] Description 03/09/2025 3:30 PM EDT Office Visit [facility] [address] [place] [address] Roderick, Solange, OD [address] [place] [address] documented as of this encounter Visit Diagnoses Not on filedocumented in this encounter Additional Health Concerns Assessment Noted Time PHQ-9 Depression Total Score: 0 05/15/20 24 8:48 AM EDT documented as of this encounter Care Teams Assembler Skylights Relationship Specialty Start Date End Date Charlotte Laureano FNP [address] [place] [address] PCP - General Family Medicine 06/09/22 documented as of this encounter
--- OUTSIDE RECORDS SUMMARY | 2025-02-09 14:27 | XMS_ITS | Clinical Summary ---
Author Organization [employer] Address 75 [facility] 7t [place] [address] Care Team Providers Care Forwarder Operator Name Role Phone [facility] Primary Care Provider [phone] Allergies Active Allergy Reactions Criticality Noted Date Comments Amoxicillin 09/23/2017 Other reaction(s): hair loss [place] 09/09/2018 Other reaction(s): Rash, Rash Risperidone 02/01/2014 [...] 08/17/20 22 Active capsaicin (Zostrix) 0.025 % creamIndication s:Acute pain of both knees APPLY TOPICALLY TO AFFECTED AREA(S) TWICE DAILY 60 g 1 12/25/19 23 Active Diclofenac Sodium 1 % gelIndications: Acute pain of both knees APPLY 4 GRAMS TOPICALLY TO AFFECTED AREA(S) TWICE DAILY 100 g 2 01/06/20 23 Active fluticasone (Flonase) 50 MCG/ACT nasal sprayIndication s:Seasonal allergies USE 1 TO 2 SPRAYS IN EACH NOSTRIL EVERY MORNING 48 g 05/11/20 23 Active Additional Information Patient not taking.Reported on 11/15/2023 Multiple Vitamin (multivitamin) tabletIndicatio ns:Healthcare maintenance Take 1 tablet by mouth Once daily. 90 tablet 3 10/13/19 24 Active haloperidol (Haldol) 10 MG tablet Take 1 tablet by mouth at bedtime. 11/04/19 24 Active hydrocortisone 1 % cream APPLY RECTALLY TWICE DAILY IF NEEDED FOR HEMORRHOIDS 28 g 1 12/15/19 24 Active Minoxidil (Minoxidil for Men) 5 % foamIndications :Hair loss APPLY 1/2 CAP TO THE SCALP TWICE DAILY DIRECTED 60 g 02/09/20 24 Active nortriptyline (Pamelor) 25 MG capsule TAKE 1 CAPSULE BY MOUTH EVERY DAY AT BEDTIME 05/22/20 24 Active docusate sodium (Colace) 100 MG capsule TAKE 1 CAPSULE BY MOUTH EVERY DAY AT BEDTIME 04/28/20 24 Active GaviLAX 17 GM/SCOOP powderIndicatio ns:Constipation , unspecified constipation type Mix 17g (1 capful) in 8 ounces of water and take by mouth every day 510 g 2 08/28/20 24 Active naproxen sodium (Aleve) 220 MG tabletIndicatio ns:Acute bilateral back pain, unspecified back location Take 1 tablet (220 mg) by mouth if needed in the morning and at bedtime for mild pain. 60 tablet 1 11/14/19 25 2025 Active atorvastatin (Lipitor) 80 MG tablet TAKE 1 TABLET BY MOUTH EVERY DAY AT BEDTIME 90 tablet 3 12/07/19 25 Active metFORMIN XR (Glucophage-XR) 500 MG 24 hr tabletIndicatio ns:Class 1 obesity due to excess calories with serious comorbidity and body mass index (BMI) of 33.0 to 33.9 in adult TAKE 1 TABLET BY MOUTH TWICE A DAY. DO NOT CRUSH, CHEW OR SPLIT. 180 tablet 02/03/20 25 Active metFORMIN XR (Glucophage-XR) 500 MG 24 hr tabletIndicatio ns:Class 1 obesity due to excess calories with serious comorbidity and body mass index (BMI) of 33.0 to 33.9 in adult TAKE 1 TABLET BY MOUTH TWICE A DAY. DO NOT CRUSH, CHEW OR SPLIT. 180 tablet 12/2024 Discontinued(R eorder (will not trigger notification to Pharmacy)) Active Problems Problem Noted Date Diagnosed Date [...] pain 11/02/2022 Overview (11/02/2022): - Presented to [facility] ED 07/25/22 with c/o chest tightness and [...] not helped with weight loss Referred to [facility] weight mgnmt 08/2022, denied due to lack of comorbidity Metformin 500mg b.I.d-tolerating well Assessment & Plan (12/22/2023 10:15 AM EDT): Metformin has been effective adjunct for patient along with diet/exercise Continue 500mg b.I.d At follow up plan to check B12 Healthcare maintenance 11/02/2022 Overview (12/22/2023): Mammo: 01/12/2022, bi-rads 1, followed by [facility] [employer] Pap: 01/2023 Neg HPV neg, followed by [facility] C-scope: 08/2015 neg; repeat 08/2025 BMD: Routine age 65 Immunizations: Up to date Assessment & Plan (12/22/2023 10:15 AM EDT): Updated mammogram ordered Patient will call to scheduled annual [employer] exam Assessment & Plan (04/25/2023 4:48 PM [...] Diagnosed Date Resolved Date Vaginal discomfort 05/10/2023 Overview (05/10/2023): -Likely yeast infection. -Treat with clotrimazole. -BV swab sent. Assessment & Plan (05/10/2023 2:19 PM EDT): -Likely yeast infection. -Treat with clotrimazole. -BV swab sent. Encounters Date Type Department Care Team Description 02/06/2025 Telephone [facility] [place] [address] Charlotte Laureano FNP Medication Question 02/05/[address] [address] Charlotte Laureano FNP Results 02/05/2025 Telephone [facility] [place] [address] Charlotte Laureano FNP Med Refill 02/01/2025 Refill [facility] [place] [address] Charlotte Laureano FNP Class 1 obesity due to excess calories with serious comorbidity and body mass index (BMI) of 33.0 to 33.9 in adult 01/08/2025 10:00 AM EDT Office Visit [facility] [place] [address] Charlotte Laureano FNP Healthcare maintenance (Primary Dx); Encounter for immunization; Tremor of face and hands; Dietary counseling; Exercise counseling 01/08/2025 Travel 01/02/2025 Telephone [facility] [place] [address] Charlotte Laureano FNP Medication Question 01/01/2025 Orders Only GENERIC EXTERNAL DATA DEPARTMENT Provider, Generic External Data 12/28/2024 Patient Outreach [facility] [address] Charlotte Laurenao FNP Pre-visit Planning (SDOH screening completed on 10/27/2024) 12/25/2024 9:30 AM EDT Office Visit [facility] [place] [address] Doc Garzon DMD 12/22/2024 Population Health Risk Score [facility] () Department [address] [place] [phone] Provider, Population Health Generic 12/07/2024 Refill [facility] [place] [address] [place], AUTOMOTIVE ENGINEERING TECHNICIAN 11/14/2024 3:00 PM EST Office Visit [facility] [address] [place], [place] [phone] Leana Valdovinos MD Rosacea (Primary Dx); Acute bilateral back pain, unspecified back location 11/14/2024 Travel from Last 3 Months Immunizations Name Administration [...] Description 03/09/2025 3:30 PM EDT Office Visit [facility] OPTOMETRY [address] [place] [address] Solange Vaughn, OD [address] [place] [address] Health Maintenance Due Date Last Done Comments CT Colonography 1965 Dental Prophylaxis 1965 Dental X-Ray: Bitewings 1965 Dental X-Ray: Full Mouth 1965 FIT DNA/Cologuard 1965 FIT 1965 FOBT 1965 Sigmoidoscopy 1965 Alcohol/Substance Use Screening 1977 HPV/Cotest 1995 Depression Screening 05/15/2025 05/15/2024, 05/15/20 Dental Oral Exam 06/28/2025 12/25/2024, 12/21/2022 Colonoscopy 07/24/2025 07/24/2015 Colorectal Cancer Screening 07/24/2025 SDOH Screening 10/27/2025 10/27/2024 Tobacco Screening 01/08/2026 01/08/2025 Mammogram 01/26/2026 01/26/2025, 01/09, 01/15/2023, Additional history exists Cervical Cancer Screening 02/01/2026 Pap Smear 02/01/2026 [...] Procedure Name Priority Date/Time Associated Diagnosis Comments BI MAMMOGRAM SCREENING TOMOSYNTHESIS BILATERAL Routine 01/26/2025 9:50 AM EDT GLUCOSE, WHOLE BLOOD Routine 01/01/2025 9:48 AM EDT CASE PRESENTATION, DETAILED AND EXTENSIVE TREATMENT PLANNING Routine 12/25/2024 9:30 AM EDT PERIODIC ORAL EVALUATION - ESTABLISHED PATIENT Routine 12/25/2024 9:30 AM EDT LIPID PANEL, STANDARD Routine 07/08/2023 [...] Recently Relevant to Health Maintenance Results * BI Mammogram Screening Tomosynthesis Bilateral (01/26/2025 9:50 AM EDT) Anatomical Region Laterality Modality Breast Bilateral Mammography 01/26/2025 9:50 AM EDT Narrative 02/04/2025 8:27 AM EDT ? [facility] ? [address] ?[place] [address] ?[phone] ? Mammography Report ? Signed ? Patient: Colon,Caro ?MR#: [id number] ?? 3 ? : 1965 ?Acct:[id number] ? Age/Sex: 59 / F ?ADM Date: 01/26/ ? Loc: HO.MAMMO ? Attending Dr: Rosemary Germain MD ? Ordering Physician: Rosemary Germain MD ?Results: 2Beni ?? gn Findings ? Date of Service: 01/26/ ?Follow Up: 1 Year From Orig ?? inal Mammogram ? Procedure(s): MM tomosynthesis screening BI ?? Accession Number(s): [id number] ? cc: Rosemary Germain MD ? EXAMINATION: ?? MM SCREENING DIGITAL BREAST TOMOSYNTHESIS, BILATERAL ? CLINICAL INFORMATION: ? Screening. Asymptomatic. ? COMPARISON: ?? Mammography: Comparison is made with available priors ? TECHNIQUE: ?? Digital breast mammography with tomosynthesis is performed in both the ?? craniocaudal and mediolateral oblique views along with computer-aided ?? detection (CAD). ? FINDINGS: ?? There are scattered areas of fibroglandular density (ACR BI-RADS breast ?? composition Category b). ?? Right marker clip. ?? There are no significant masses, abnormal calcifications, or other ?? abnormalities. ? MM/MM tomosynthesis screening BI ?? IMPRESSION: [...] due date for their next mammogram. ? Electronically signed by: ??Val Baker DO ??02/04/2025 08:25 AM EDT ? Dictated By: ?Val Baker DO ? Signed By: ?<Electronically signed by Val Baker, DO in OV> ? 02/04/25 0825 ? DD/ 0950 ? TD/TT: 01/26/25 1016 ? Citrus Picker: ? Procedure Note Michelle, Clement - 02/04/2025 [facility] [address] [place] [address] Mammography Report Signed Patient: Itzel Duncan EMR#: [id number] 3 : 1965Acct:[id number] Age/Sex: 59 / FADM Date: 01/26/25 Loc: HO.MAMMO Attending Dr: Rosemary Germain MD Ordering Physician: Rosemary Germain MDResults: 2Beni gn Findings Date of Service: 01/26/25Follow Up: 1 Year From Orig inal Mammogram Procedure(s): MM tomosynthesis screening BI Accession Number(s): [id number] cc: Rosemary Germain MD EXAMINATION: MM SCREENING DIGITAL BREAST TOMOSYNTHESIS, BILATERAL CLINICAL INFORMATION: Screening. Asymptomatic. COMPARISON: Mammography: Comparison is made with available priors TECHNIQUE: Digital breast mammography with tomosynthesis is performed in both the craniocaudal and mediolateral oblique views along with computer-aided detection (CAD). FINDINGS: There are scattered areas of fibroglandular density (ACR BI-RADS breast composition Category b). Right marker clip. There are no significant masses, abnormal calcifications, or other abnormalities. MM/MM tomosynthesis screening BI IMPRESSION: No mammographic evidence of malignancy. ASSESSMENT: BI-RADS BI-RADS 2 - Benign Findings RECOMMENDATION: Routine annual mammography screening. 1 year F/U This examination should not preclude the clinical evaluation of a suspicious palpable abnormality. This patient's information was entered into a reminder system with a target due date for their next mammogram. Electronically signed by: Val Baker DO 02/04/2025 08:25 AM EDT RP Dictated By: Val Baker DO Signed By: <Electronically signed by Val Baker DO in OV> 02/04/25 0825 DD/ 0950 TD/TT: 01/26/25 1016 Citrus Picker: us Rosemary Germain MD IMG BI PROCEDURES Edited Resu lt - Final * Glucose, Whole Blood (01/01/2025 9:48 AM EDT) Glucose, Whole Blood 94 60 - 115 mg/dL [facility] Comment:METER #: [id number] 01/01/2025 9:48 AM EDT 01/01/2025 9:56 AM EDT us Generic External Data Provider LAB BLOOD ORDERAB LES Final Result [facility] [address] [place] [address] [phone] * Lipid Panel, Standard (07/08/2023 1:24 PM EDT) Triglycerides 136 <150 mg/dL [facility] Comment:Desirable Triglyceri de: less than 150 mg/dLBorderline High Triglyceride 150-199 mg/dLHigh Triglyceride: 200-499 mg/dLVery High Triglyceride: greater than or equal to 5OO mg/dL Cholesterol 154 <200 mg/dL [facility] Comment:Desirable Cholestero l: less than 200 mg/dLBorderline High Cholesterol: 200-239 mg/dLHigh Cholesterol: greater than 239 mg/dL LDL Cholesterol Calculated 75 <100 mg/dL [facility] Comment:Desirable LDL: less than 100 mg/dLNear Optimal/Above Optimal LDL: 110- 129 mg/dLBorderline High LDL: 130-159 mg/dLHigh LDL: 160-189 mg/dLVery High LDL: greater than or equal to 190 mg/dL HDL Cholesterol 52 >40 mg/dL [facility] Comment:Desirable HDL: great er than 40 mg/dL Note: This HDL assay may give artificially low results in patients with liver disease. Blood Venous blood specimen / Unknown 07/08/2023 1:24 PM EDT 07/08/2023 3:54 PM EDT [facility] AUTOMOTIVE ENGINEERING TECHNICIAN LAB BLOOD ORDERABLES Final Re sult [facility] [address] [place] [phone] * Pap Smear (02/01/2023) Pap smear PERFORMED Comment:HPV MRNA NOT DETECTE D Historical Provider HEALTH MAINTENANCE Final Result * Hepatitis C Antibody with Reflex to HCV, RNA, Quantitative, Real-Time PCR (11/24/2022 8:33 AM EST) Hepatitis C Antibody NON-REACT MALIA NON-REACT MALIA [employer] [place] Double R Groupt Index 0.05 <1.00 [facility] Comment: HCV antibody was non-reactive. There is no laboratory evidence of HCV infection. In most cases, no further action is required. However, if recent HCV exposure is suspected, a test for HCV RNA (test code 99876) is suggested. For additional information please refer to http://education.[employer]/faq/RYI95t1 (This link is being provided for informational/ educational purposes only.) Blood Venous blood specimen / Unknown 11/24/2022 8:33 AM EST 11/24/2022 8:34 AM EST Narrative [facility] - 11/24/2022 8:43 PM EST FASTING:YES FASTING: YES [facility] LAB BLOOD ORDERABLES Final Re sult [facility] [address] [facility] [place] [address] [employer] [place] [employer] [address] [facility], (Nl2) [place] [address] * HIV-1/2 Antigen and Antibodies, Fourth Generation, with Reflexes (11/24/2022 8:33 AM EST) HIV Antigen/Antibody, 4th Generation NON-REAC TIVE NON-REAC TIVE [facility] [place] [facility] Comment: HIV-1 antigen and HIV-1/HIV-2 antibodies [...] ?? For additional information please refer to http://education.[employer]/faq/MIX005 (This link is being provided for informational/ educational purposes only.) The performance of this assay has not been clinically validated in patients less than 2 years old. Blood Venous blood specimen / Unknown 11/24/2022 8:33 AM EST 11/24/2022 8:34 AM EST Narrative [facility] - 11/24/2022 8:43 PM EST FASTING:YES FASTING: YES [facility] LAB BLOOD ORDERABLES Final Re sult [facility] [address] [facility], 3rd Fl, [place] [address] [facility] [place] [facility] [address] [facility], (Nl2) [place] [address] * Colonoscopy (07/24/2015 8:38 AM EDT) us Historical Provider MD HEALTH MAINTENANCE Final Result from Last 3 Months or Most Recently Relevant to Health Maintenance Insurance [facility] C3 DENTAL-[facility] MEDICAID STAND ADULT Care Teams Forwarder Operator Relationship Specialty Start Date End Date Charlotte Laureano FNP [address] [place] [phone] PCP - General Family Medicine 06/09/22
--- OUTSIDE RECORDS SUMMARY | 2025-02-09 14:27 | XMS_ITS | Encounter Summary ---
Author Organization [employer] Address 75 [facility] 7 [place] [address] Care Team Providers Care Shovel Oiler Name Role Phone [facility] Primary Care Provider [phone] Reason for Visit * Reason Onset Date Comments Lab Orders 11/23/2022 Encounter Details Date Type Department Care Team ([facility] st Contact Info) Description 11/23/2022 Telephone [facility] MEDICINE [address] [place], [place] [phone] [facility] [address] [place] [address] Lab Orders Social History Tobacco Use Types [...] blood work order Please contact pt at [phone] documented in this encounter Plan of Treatment Upcoming Encounters Date Type Department Care Team (Late st Contact Info) Description 03/09/2025 3:30 PM EDT Office Visit [facility] OPTOMETRY [address] [place], [place] [phone] Solange Vaughn, OD [address] [place] [address] documented as of this encounter Visit Diagnoses Not on filedocumented in this encounter Additional Health Concerns Assessment Noted Time PHQ-9 Depression Total Score: 0 11/13/19 23 1:38 PM EST documented as of this encounter Care Teams Shovel Oiler Relationship Specialty Start Date End Date Charlotte Laureano FNP [address] [place] [address] PCP - General Family Medicine 06/09/22 documented as of this encounter
--- OUTSIDE RECORDS SUMMARY | 2025-02-09 14:27 | XMS_ITS | Encounter Summary ---
Author Organization [employer] Address [address] [place] [address] 7 [place] [address] Care Team Providers Care Pot Firer Name Role Phone [facility] Primary Care Provider [phone] Reason for Visit * Reason Onset Date Comments Lab Orders 11/16/2022 Encounter Details Date Type Department Care Team ([facility] st Contact Info) Description 11/16/2022 Telephone [facility] MEDICINE [address] [place], [place] [phone] [facility] [address] [place] [address] Lab Orders Social History Tobacco Use Types [...] blood work order Please contact pt at [phone] documented in this encounter Plan of Treatment Upcoming Encounters Date Type Department Care Team (Late st Contact Info) Description 03/09/2025 3:30 PM EDT Office Visit [facility] OPTOMETRY [address] [place] [address] Solange Vaughn, OD [address] [place] [address] documented as of this encounter Visit Diagnoses Not on filedocumented in this encounter Additional Health Concerns Assessment Noted Time PHQ-9 Depression Total Score: 0 11/13/19 23 1:38 PM EST documented as of this encounter Care Teams Pot Firer Relationship Specialty Start Date End Date Charlotte Laureano FNP [address] [place] [address] PCP - General Family Medicine 06/09/22 documented as of this encounter
--- OUTSIDE RECORDS SUMMARY | 2025-02-09 14:27 | XMS_ITS | Encounter Summary ---
Author Organization [employer] Address 75 [facility] 7t [place] [address] Care Team Providers Care Analytical Engineer Name Role Phone [facility] Primary Care Provider [phone] Reason for Visit * Reason Onset Date Comments Lab Orders 02/25/2023 Encounter Details Date Type Department Care Team ([facility] st Contact Info) Description 02/25/2023 Telephone [facility] MEDICINE [address] [place], [place] [phone] [facility] [address] [place] [address] Lab Orders Social History Tobacco Use Types [...] - 03/15/2023 10:27 AM EDT T/C to [phone] through [employer] , Message states , The number you are calling isnot a working number, Please try again later. . Interpreters try second time, same message. Numberis not working. * Telephone Encounter - Suzanna Garcia - 03/11/2023 9:53 AM EDT Tc from patient re calling in regards to message below. * Telephone Encounter - Apoorva Smis RN - 02/26/2023 4:49 PM EDT T/C placed to pt via [employer] [place] #[id number]. Pt states she would like a lab [...] check for diabetes. Please contact pt at [phone] documented in this encounter Plan of Treatment Upcoming Encounters Date Type Department Care Team (Late st Contact Info) Description 03/09/2025 3:30 PM EDT Office Visit [facility] OPTOMETRY [address] [place] [address] Roderick, Solange, OD [address] [place] [address] documented as of this encounter Visit Diagnoses Not on filedocumented in this encounter Additional Health Concerns Assessment Noted Time PHQ-9 Depression Total Score: 0 11/13/19 23 1:38 PM EST documented as of this encounter Care Teams Analytical Engineer Relationship Specialty Start Date End Date Charlotte Laureano FNP [address] [place] [address] PCP - General Family Medicine 06/09/22 documented as of this encounter
--- OUTSIDE RECORDS SUMMARY | 2025-02-09 14:28 | XMS_ITS | Encounter Summary ---
Author Organization [employer] Address 75 [facility] 7t [place] [address] Care Team Providers Care Lokie Engineer Name Role Phone [facility] Primary Care Provider [phone] Reason for Visit * Reason Onset Date Comments Hospital Follow-up 11/04/2023 Encounter Details Date Type Department Care Team ([facility] st Contact Info) Description 11/04/2023 Telephone [facility] MEDICINE [address] [place], [place] [phone] [facility] [address] [place], [place] [phone] Hospital Follow-up Social History Tobacco Use Types [...] 8:42 AM EST Tc from Radha at [facility] requesting a HDF follow up appt for the patient. Tc from pt requesting a HDF appt. [place] [facility] [place] of admission: 10/28 Discharge date: 11/04 Diagnosed: schizophrenia Disorder Please Call [facility] at [phone] documented in this encounter Plan of Treatment Upcoming Encounters Date Type Department Care Team (Late st Contact Info) Description 03/09/2025 3:30 PM EDT Office Visit [facility] OPTOMETRY [address] [place] [address] Solange Vaughn, OD [address] [place] [address] documented as of this encounter Visit Diagnoses Not on filedocumented in this encounter Additional Health Concerns Assessment Noted Time PHQ-9 Depression Total Score: 0 10/13/19 24 11:29 AM EST documented as of this encounter Care Teams Lokie Engineer Relationship Specialty Start Date End Date Charlotte Laureano FNP [address] [place] [address] PCP - General Family Medicine 06/09/22 documented as of this encounter
--- OUTSIDE RECORDS SUMMARY | 2025-02-09 14:28 | XMS_ITS | Encounter Summary ---
Author Organization [employer] Address 75 [facility] 7t [place] [address] Care Team Providers Care Farm Crops Teacher Name Role Phone [facility] Primary Care Provider [phone] Reason for Visit * Reason Onset Date Comments Referral 12/31/2023 Encounter Details Date Type Department Care Team ([facility] st Contact Info) Description 12/31/[address] [facility] MEDICINE [address] [place], [place] [phone] [facility] [address] [place] [address] Referral Social History Tobacco Use Types Packs/Day [...] a referral to the vision center at [facility]. A referral had been placed on 05/20/[address] [facility] eyecare for a history of glaucoma. Pt needs a new referral placed. Forwarding to provider * Telephone Encounter - Cami Workman - 12/31/2023 9:47 AM EDT TC from pt requesting new referral to vision center . Location: [facility] Address: [address] [facility] documented in this encounter Plan of Treatment Upcoming Encounters Date Type Department Care Team (Late st Contact Info) Description 03/09/2025 3:30 PM EDT Office Visit [facility] OPTOMETRY [address] [place] [address] Solange Vaughn, OD [address] [place] [address] documented as of this encounter Visit Diagnoses Not on filedocumented in this encounter Additional Health Concerns Assessment Noted Time PHQ-9 Depression Total Score: 0 12/22/19 24 9:02 AM EDT documented as of this encounter Care Teams Farm Crops Teacher Relationship Specialty Start Date End Date Charlotte Laureano FNP [address] [place] [address] PCP - General Family Medicine 06/09/22 documented as of this encounter
--- OUTSIDE RECORDS SUMMARY | 2025-02-09 14:28 | XMS_ITS | Encounter Summary ---
Author Organization [employer] Address [address] [facility] 7t [place] [address] Care Team Providers Care Hat Ironer Name Role Phone [facility] Primary Care Provider [phone] Encounter Details Date Type Department Care Team ([facility] st Contact Info) Description 01/25/2024 Telephone [facility] MEDICINE 230 [place], [place] [phone] [facility] 230 [place] [address] Social History Tobacco Use Types Packs/Day Years [...] 3:30 PM EDT Office Visit [facility] OPTOMETRY [address] [place] [address] Roderick, Solange, OD 230 [place] [address] documented as of this encounter Visit Diagnoses Not on filedocumented in this encounter Additional Health Concerns Assessment Noted Time PHQ-9 Depression Total Score: 0 12/22/19 24 9:02 AM EDT documented as of this encounter Care Teams Hat Ironer Relationship Specialty Start Date End Date [place] Laureano FNP 230 [place] [address] PCP - General Family Medicine 06/09/22 documented as of this encounter
--- OUTSIDE RECORDS SUMMARY | 2025-02-09 14:28 | XMS_ITS | Encounter Summary ---
Author Organization [employer] Address [address] [facility] 7t [place] [address] Care Team Providers Care Office Inspector Name Role Phone [facility] Primary Care Provider [phone] Reason for Visit * Reason Onset Date Comments Results 10/14/2023 Encounter Details Date Type Department Care Team ([facility] Contact Info) Description 10/14/[address] [facility] MEDICINE 230 [place], [place] [phone] [facility] 230 [place] [address] Results Social History Tobacco Use Types Packs/Day [...] regards to results. Please contact pt at [phone] * Telephone Encounter - Maria De Jesus Shultz - 10/15/2023 9:06 AM EST Tc from pt calling in regards to results. Please contact pt at [phone] * Telephone Encounter - Maria De Jesus Shultz - 10/14/2023 2:43 PM EST TC from pt requesting call back regarding Results. Type of results: labs Date when done: 10/13 Facility: [facility] documented in this encounter Plan of Treatment Upcoming Encounters Date Type Department Care Team (Late st Contact Info) Description 03/09/2025 3:30 PM EDT Office Visit [facility] OPTOMETRY [address] [place] [address] Roderick Solange, OD [address] [place] [address] documented as of this encounter Visit Diagnoses Not on filedocumented in this encounter Additional Health Concerns Assessment Noted Time PHQ-9 Depression Total Score: 0 10/13/19 24 11:29 AM EST documented as of this encounter Care Teams Office Inspector Relationship Specialty Start Date End Date [place] Laureano FNP [address] [place] [address] PCP - General Family Medicine 06/09/22 documented as of this encounter
--- OUTSIDE RECORDS SUMMARY | 2025-02-09 14:28 | XMS_ITS | Encounter Summary ---
Author Organization [employer] Address [address] [place] [address] 7 [place] [address] Care Team Providers Care Gearcase Assembler Name Role Phone [facility] Primary Care Provider [phone] Reason for Visit * Reason Onset Date Comments Lab Orders 12/07/2022 Encounter Details Date Type Department Care Team ([facility] Contact Info) Description 12/07/2022 Telephone [facility] MEDICINE 230 [place] [address] [facility] 230 [place] [address] Lab Orders Social History Tobacco Use Types [...] Upcoming Encounters Date Type Department Care Team ([facility] Contact Info) Description 03/09/2025 3:30 PM EDT Office Visit [facility] OPTOMETRY [address] [place] [address] Roderick, Solange, OD 230 [place] [address] documented as of this encounter Visit Diagnoses Not on filedocumented in this encounter Additional Health Concerns Assessment Noted Time PHQ-9 Depression Total Score: 0 11/13/19 23 1:38 PM EST documented as of this encounter Care Teams Gearcase Assembler Relationship Specialty Start Date End Date [place] Laureano FNP 230 [place] [address] PCP - General Family Medicine 06/09/22 documented as of this encounter
--- OUTSIDE RECORDS SUMMARY | 2025-02-09 14:28 | XMS_ITS | Encounter Summary ---
Author Organization [email or web address] Address [address] [facility] 7t [place] [address] Care Team Providers Care Dental Technician Metal Name Role Phone [facility] Primary Care Provider [phone] Reason for Visit * Reason Onset Date Comments Results 11/17/2023 Encounter Details Date Type Department Care Team ([facility] Contact Info) Description 11/17/2023 Telephone [facility] MEDICINE 230 [place], [place] [phone] [facility] 230 [place] [address] Results Social History Tobacco Use Types Packs/Day [...] a PAP smear. Please contact pt at [phone] * Telephone Encounter - Dony Hanson - [...] Description 03/09/2025 3:30 PM EDT Office Visit [facility] OPTOMETRY [address] [place] [address] Roderick, Solange, OD [address] [place], [place] [phone] documented as of this encounter Visit Diagnoses Not on filedocumented in this encounter Additional Health Concerns Assessment Noted Time PHQ-9 Depression Total Score: 0 10/13/19 24 11:29 AM EST documented as of this encounter Care Teams Dental Technician Metal Relationship Specialty Start Date End Date [place] Laureano FNP 230 [place] [address] PCP - General Family Medicine 06/09/22 documented as of this encounter
--- OUTSIDE RECORDS SUMMARY | 2025-02-09 14:28 | XMS_ITS | Encounter Summary ---
Author Organization [email or web address] Address [address] [facility] 7t [place] [address] Care Team Providers Care Director Medical Affairs Name Role Phone [facility] Primary Care Provider Reason for Visit * Reason Onset Date Comments Nurse Triage 11/09/2023 Encounter Details Date Type Department Care Team ([facility] st Contact Info) Description 11/09/2023 Telephone [facility] MEDICINE 230 [place], [place] [phone] [facility] 230 [place], [place] [phone] Nurse Triage Social History Tobacco Use Types [...] Visit [facility] OPTOMETRY [address] [place] [address] Roderick, Solange, OD [address] [place] [address] documented as of this encounter Visit Diagnoses Not on filedocumented in this encounter Additional Health Concerns Assessment Noted Time PHQ-9 Depression Total Score: 0 10/13/19 24 11:29 AM EST documented as of this encounter Care Teams Director Medical Affairs Relationship Specialty Start Date End Date [place] Laureano FNP 230 [place] [address] PCP - General Family Medicine 06/09/22 documented as of this encounter
--- OUTSIDE RECORDS SUMMARY | 2025-02-09 14:28 | XMS_ITS | Encounter Summary ---
Author Organization [email or web address] Address [address] [facility] 7t [place] [address] Care Team Providers Care Mold Filler And Drainer Name Role Phone [facility] Primary Care Provider [phone] Reason for Visit * Reason Onset Date Comments Med Refill 03/31/2024 Encounter Details Date Type Department Care Team ([facility] st Contact Info) Description 03/31/2024 Telephone [facility] MEDICINE 230 [place], [place] [phone] [facility] 230 [place], [place] [phone] Med Refill Social History Tobacco Use Types [...] 24 hr tablet To be sent to: [facility] - [place], [place] - [address] [facility] documented in this encounter Plan of Treatment Upcoming Encounters Date Type Department Care Team (Late st Contact Info) Description 03/09/2025 3:30 PM EDT Office Visit [facility] OPTOMETRY [address] [place] [address] Solange Vaughn, OD 230 [place] [address] documented as of this encounter Visit Diagnoses Not on filedocumented in this encounter Additional Health Concerns Assessment Noted Time PHQ-9 Depression Total Score: 0 12/22/19 24 9:02 AM EDT documented as of this encounter Care Teams Mold Filler And Drainer Relationship Specialty Start Date End Date ViborgCharlotte FNP 230 [place] [address] PCP - General Family Medicine 06/09/22 documented as of this encounter
--- OUTSIDE RECORDS SUMMARY | 2025-02-09 14:28 | XMS_ITS | Encounter Summary ---
Author Organization [employer] Address [address] [facility] 7t [place] [address] Care Team Providers Care Guitar Teacher Name Role Phone [facility] Primary Care Provider [phone] Encounter Details Date Type Department Care Team ([facility] st Contact Info) Description 01/19/2024 Orders Only [facility] MEDICINE 230 [place], [place] [phone] ProviderNidia MD Social History Tobacco Use Types [...] 03/09/2025 3:30 PM EDT Office Visit [facility] OPTOMETRY [address] [place], [place] [phone] Solange Vaughn, OD 230 [place] [address] documented as of this encounter Procedures Procedure [...] documented as of this encounter Care Teams Guitar Teacher Relationship Specialty Start Date End Date [place] Laureano FNP 230 [place] [address] PCP - General Family Medicine 06/09/22 documented as of this encounter
--- OUTSIDE RECORDS SUMMARY | 2025-02-09 14:28 | XMS_ITS | Encounter Summary ---
Author Organization [employer] Address [address] [facility] 7t [place] [address] Care Team Providers Care Cullet Trucker Name Role Phone [facility] Primary Care Provider [phone] Reason for Visit * Reason Onset Date Comments Med Refill 03/20/2024 Encounter Details Date Type Department Care Team ([facility] st Contact Info) Description 03/20/2024 Telephone [facility] MEDICINE 230 [place], [place] [phone] [facility] 230 [place], [place] [phone] Med Refill Social History Tobacco Use Types [...] 9:31 AM EDT Medication was sent to [facility] on 02/07/24 #180 with 2 refills. * Telephone Encounter - Stefania Cardenas - 03/20/2024 9:23 AM EDT TC from pt requesting medication refill. Medications needing refill : metFORMIN XR (Glucophage-XR) 500 MG 24 hr tablet To be sent to: [facility] - [place], [place] - 230 [facility] documented in this encounter Plan of Treatment Upcoming Encounters Date Type Department Care Team (Late st Contact Info) Description 03/09/2025 3:30 PM EDT Office Visit [facility] OPTOMETRY [address] [place] [address] Solange Vaughn, OD 230 [place] [address] documented as of this encounter Visit Diagnoses Not on filedocumented in this encounter Additional Health Concerns Assessment Noted Time PHQ-9 Depression Total Score: 0 12/22/19 24 9:02 AM EDT documented as of this encounter Care Teams Cullet Trucker Relationship Specialty Start Date End Date [place] DAO Porter [address] [place] [address] PCP - General Family Medicine 06/09/22 documented as of this encounter
--- OUTSIDE RECORDS SUMMARY | 2025-02-09 14:28 | XMS_ITS | Encounter Summary ---
Author Organization [employer] Address [address] [place] [address] 7t [place] [address] Care Team Providers Care Development System Efficiency Manager Name Role Phone [facility] Primary Care Provider [phone] Reason for Visit * Reason Onset Date Comments Results 07/12/2023 Encounter Details Date Type Department Care Team ([facility] st Contact Info) Description 07/12/2023 Telephone [facility] MEDICINE 230 [place], [place] [phone] [facility] 230 [place] [address] Results Social History Tobacco Use Types Packs/Day [...] 11:46 AM EDT T/C to pt. Through [employer] id - [id number] for below message, pt. Was informed regarding normal lipids labs. Pt. Verbally agreed and understood. * Telephone Encounter - Stefania Cardenas - 07/13/2023 4:17 PM EDT Pt calling again requesting a call in regards to results of 07/08 labs. Please contact pt at [phone] (Citizen [place]) * Telephone Encounter - Maria De Jesus Shultz - 07/12/2023 9:14 AM EDT Tc from pt requesting a call in regards to results of 07/08 labs. Please contact pt at [phone] (Citizen Of [place]) documented in this encounter Plan of Treatment Upcoming Encounters Date Type Department Care Team (Late st Contact Info) Description 03/09/2025 3:30 PM EDT Office Visit [facility] OPTOMETRY [address] [place] [address] Roderick, Solange, OD 230 [place] [address] documented as of this encounter Visit Diagnoses Not on filedocumented in this encounter Additional Health Concerns Assessment Noted Time PHQ-9 Depression Total Score: 0 04/27/20 23 9:47 AM EDT documented as of this encounter Care Teams Development System Efficiency Manager Relationship Specialty Start Date End Date [place] Laureano FNP 230 [place] [address] PCP - General Family Medicine 06/09/22 documented as of this encounter
--- OUTSIDE RECORDS SUMMARY | 2025-02-09 14:28 | XMS_ITS | Encounter Summary ---
Author Organization [employer] Address [address] [facility] [address] 7t [place] [address] Care Team Providers Care Choral Director Name Role Phone [facility] Primary Care Provider [phone] Encounter Details Date Type Department Care Team ([facility] st Contact Info) Description 05/25/2024 Orders Only [facility] 230 [place], [place] [phone] Noreen Krishnamurthy RN Social History Tobacco Use [...] 3:30 PM EDT Office Visit [facility] OPTOMETRY [address] [place], [place] [phone] RoderickSolange meng, OD 230 [place] [address] documented as of this encounter Visit Diagnoses Not on filedocumented in this encounter Additional Health Concerns Assessment Noted Time PHQ-9 Depression Total Score: 0 05/15/20 24 8:48 AM EDT documented as of this encounter Care Teams Choral Director Relationship Specialty Start Date End Date [place] Laureano FNP 230 [place] [address] PCP - General Family Medicine 06/09/22 documented as of this encounter
--- OUTSIDE RECORDS SUMMARY | 2025-02-09 14:28 | XMS_ITS | Encounter Summary ---
Author Organization [employer] Address [address] [facility] 7t [place] [address] Care Team Providers Care V Groove Cutter Name Role Phone [facility] Primary Care Provider [phone] Reason for Visit * Reason Onset Date Comments Medication Question 02/06/2025 Encounter Details Date Type Department Care Team ([facility] Contact Info) Description 02/06/2025 Telephone [facility] MEDICINE 230 [place], [place] [phone] [facility] 230 [place] [address] Medication Question Social History Tobacco Use Types Packs/Day Years [...] encounter Miscellaneous Notes * Telephone Encounter - Micah Armenta RN - 02/06/2025 3:06 PM EDT TC placed to patient [phone] using [place] #ID [id number] regarding below message. RN informed patient that her Vitamin D medication was discontinued on 11/30/23 due to vitamin d levels elevated by her PCP. RN inquired what provider ordered her Colace. Patient reported she was unsure. RN advised patientto call the provider who prescribed her colace. Pt reported ok . Pt verbalized understanding. PT to F/U PRN. * Telephone Encounter - Roldan Taylor - 02/06/2025 2:07 PM EDT TC from pt requesting medication refill. Medications needing refill : docusate sodium (Colace) 100 MG capsule Vitamin b 3 To be sent to: [facility] documented in this encounter Plan of Treatment Upcoming Encounters Date Type Department Care Team (Late st Contact Info) Description 03/09/2025 3:30 PM EDT Office Visit [facility] OPTOMETRY [address] [place] [address] Solange Vaughn, OD 230 [place] [address] documented as of this encounter Visit Diagnoses Not on filedocumented in this encounter Additional Health Concerns Assessment Noted Time PHQ-9 Depression Total Score: 0 05/15/20 24 8:48 AM EDT documented as of this encounter Care Teams V Groove Cutter Relationship Specialty Start Date End Date [place] Laureano FNP 230 [place] [address] PCP - General Family Medicine 06/09/22 documented as of this encounter
--- OUTSIDE RECORDS SUMMARY | 2025-02-09 14:28 | XMS_ITS | Encounter Summary ---
Author Organization [employer] Address [address] [facility] 7t [place] [address] Care Team Providers Care Medical Coder Name Role Phone [facility] Primary Care Provider [phone] Reason for Visit * Reason Onset Date Comments Nurse Triage 11/10/2023 Encounter Details Date Type Department Care Team ([facility] st Contact Info) Description 11/10/2023 Telephone [facility] MEDICINE 230 [place], [place] [phone] [facility] 230 [place] [address] Nurse Triage Social History Tobacco Use Types [...] 10:49 AM EST Triage attempted x2 with [employer] Supervisor [employer] ID [id number] . Both call went directly to message [...] accepted this outcome Please contact pt at [phone] (greenlandic) documented in this encounter Plan of Treatment Upcoming Encounters Date Type Department Care Team (Late st Contact Info) Description 03/09/2025 3:30 PM EDT Office Visit [facility] OPTOMETRY [address] [place] [address] Solange Vaughn, OD 230 [place] [address] documented as of this encounter Visit Diagnoses Not on filedocumented in this encounter Additional Health Concerns Assessment Noted Time PHQ-9 Depression Total Score: 0 10/13/19 24 11:29 AM EST documented as of this encounter Care Teams Medical Coder Relationship Specialty Start Date End Date [facility] DAO Porter 230 [place] [address] PCP - General Family Medicine 06/09/22 documented as of this encounter
--- OUTSIDE RECORDS SUMMARY | 2025-02-09 14:28 | XMS_ITS | Encounter Summary ---
Author Organization [employer] Address [address] [facility] 7 [place] [address] Care Team Providers Care Appliance Service Representative Name Role Phone [facility] Primary Care Provider [phone] Reason for Visit * Reason Onset Date Comments call back 11/26/2022 Encounter Details Date Type Department Care Team ([facility] st Contact Info) Description 11/26/2022 Telephone [facility] MEDICINE 230 [place], [place] [phone] [facility] 230 [place] [address] call back Social History Tobacco Use Types [...] AM EST TC returned to pt at [phone], utilizing [employer] Temperature Regulator ID:[id number], regarding message belowper [facility]. Pt informed labs show high [...] she can obtain copy of labs at [facility] Medical Records in basement. Pt verbalized understanding. Pt to F/U as needed. ----- Message from [facility] sent at 11/26/2022 8:44 AM EST [...] [facility] OPTOMETRY [address] [place] [address] Solange Vaughn, OD 230 [place] [address] documented as of this encounter Visit Diagnoses Not on filedocumented in this encounter Additional Health Concerns Assessment Noted Time PHQ-9 Depression Total Score: 0 11/13/19 23 1:38 PM EST documented as of this encounter Care Teams Appliance Service Representative Relationship Specialty Start Date End Date [facility] 230 [place] [address] PCP - General Family Medicine 06/09/22 documented as of this encounter
[2025-02-09 14:31] LABS: Influenza A PCR NEGATIVE (Negative); Influenza B PCR NEGATIVE (Negative); Resp Syncy Virus RNA Qual PCR NEGATIVE (Negative); SARS COV2 PCR INHOUSE NEGATIVE (Negative)
[2025-02-09] MEDS: LORazepam 1 MG TABLET 2 MG PO (14:57)
[2025-02-09 15:51] VITALS: BP 123/77; PULSE 96; RESP 16; TEMP 36.7; O2SAT 97
--- NOTE | 2025-02-09 17:42 | MHC.EDTECH ---
Patient repeated trop was delay ,because Patient was refusing to be drawn ,After education ,Patient agree and trop was drawn and sent to lab ,repeated vitals taken .
[2025-02-09] MEDS: Ibuprofen 800 MG TABLET PO (17:49)
[2025-02-09 18:06] LABS: Troponin-I High Sensitivity < 2.7 ng/L (<3.5-17.0)
[2025-02-09 18:30] VITALS: BP 126/68; PULSE 74; RESP 16; TEMP 36.3; O2SAT 97
[2025-02-09 19:48] VITALS: BP 126/68; PULSE 74; RESP 16; TEMP 36.3; O2SAT 97
== END 2025-02-09 20:02 | disposition home or self-care (01) ==
PROVIDERS: Nurse Practitioner Family; Physician Assistant; Emergency Provider Emergency Medicine
DX: R25.1 Tremor, unspecified (principal); Z03.818 Encounter for observation for suspected exposure to other biological agents ruled out
CPT/HCPCS: 0241U; 36415; 70450; 80053; 80178; 83735; 84484; 85025; 93005; 99284; 99285

== ENCOUNTER → 2025-02-09 13:22 | Outpatient (BNV) | payer MEDICAID, SELFPAY | PROVIDERS: Emergency Provider Emergency Medicine; Visit Provider Internal Medicine Cardiovascular Disease | DX: R42 Dizziness and giddiness (principal) | CPT/HCPCS: 93010 ==

== ENCOUNTER → 2025-02-09 14:39 | Outpatient (BNV) | payer MEDICAID, SELFPAY | PROVIDERS: Emergency Provider Emergency Medicine; Visit Provider Radiology Diagnostic Radiology | DX: R25.1 Tremor, unspecified (principal) | CPT/HCPCS: 70450 ==

== ENCOUNTER 2025-02-13 13:53 | Outpatient (REF) | payer MEDICAID, SELFPAY ==
[2025-02-14 07:36] LABS: CT PCR NOT DETECTED (Not Detect.); NG PCR NOT DETECTED (Not Detect.)
[2025-02-14 11:49] LABS: Bacterial Vaginosis PCR POSITIVE (Negative); Candida Group PCR NOT DETECTED (Not Detect); Candida glab krusei PCR NOT DETECTED (Not Detect); Trichomonas vaginalis PCR NOT DETECTED (Not Detect)
== END 2025-02-13 13:54 | disposition home or self-care (01) ==
LOC: HO.LNP 13:53
PROVIDERS: Visit Provider Advanced Practice Midwife
DX: Z01.419 Encounter for gynecological examination (general) (routine) without abnormal findings (principal); Z20.2 Contact with and (suspected) exposure to infections with a predominantly sexual mode of transmission
CPT/HCPCS: 81515; 87491; 87591; 99396; 99459

== ENCOUNTER 2025-02-13 13:53 | Outpatient (AMB) | payer MEDICAID, SELFPAY ==
--- NOTE | 2025-02-13 14:08 | A.OFFVIS_ITS ---
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 She is doing well with no middle school reading teacher concerns. Currently not sexually active. Denies any vaginal dryness or irritation. STI testing offered; she accepts cultures. Attempting to eat a healthy diet with calcium and vitamin D and stays active with exercise. Last pap smear; 2022. Last mammogram; 2024. She reports her colonoscopy is UTD. Denies any family history of breast, ovarian or colon cancer. [facility] Medical History Paranoid delusion Renal cyst Anxiety Elevated cholesterol Occasional tremors Surgical History Hx of colonoscopy Hx of section Hx of tubal ligation Social History Household Members: None Housing: Apartment Do you presently have visiting nurse or other home services: No Alcohol intake: never Patient Tobacco Use Status: Never used Tobacco Tobacco use type: Cigarette e-Cigarette/Vaping Use: Former Use Second Hand Smoke Exposure: No Substance Use Type: Caffiene service: No Sexual orientation: Straight/Heterosexual Female Reproductive History Menstrual control method: permanent sterilization Permanent Sterilization: BTL Total pregnancies: 4 Full term: 4 Number of Living Children: 4 Date of last pap smear: 02/01/23 (neg pap and hpv) History of abnormal pap smear: Yes (10/26 ascus) Date of Mammogram: 01/26/25 (Birad 2) Review of Systems Const All systems reviewed & are unremarkable except as noted in HPI and below Reports as per HPI Eyes Reports no additional complaints ENT Reports no additional complaints Card Reports no additional complaints Resp Reports no additional complaints GI Reports as per HPI and Reports no additional complaints Reports as per HPI Musc Reports no additional complaints Skin/Breast Reports as per HPI Neuro Reports no additional complaints Psych Reports no additional complaints Endo Reports no additional complaints Adama/Lymph Reports no additional complaints Aller/Immun Reports no additional complaints Physical Exam Vital Signs: Last Vital Signs BP 114/82 02/13/25 14:10 BMI result Body Mass Index 25.2 Const General: cooperative, healthy appearing, no acute distress, well developed and alert Orientation/consciousness: patient oriented x3 HEENT Head: Yes normal to inspection Eyes General: appearance normal, both eyes and all related structures Neck Neck: Yes normal visual inspection Thyroid: Thyroid normal Chest Chest palpation & inspection: normal inspection of the chest and other (no puckering, dimpling, peau de orange, retraction, discharge, masses) Breast/axilla inspection: normal inspection of the breasts Breast/axilla palpation: normal palpation of the breasts Resp Effort & Inspection: normal respiratory effort GI Inspection: Yes normal to inspection Palpation (GI): Soft to palpation Rectal Exam - Female: deferred General: Yes bladder normal to palpation External Female Exam: normal external appearance and normal appearance of the urethra Speculum Exam - Vagina: normal appearance of the vagina, normal palpation, normal vaginal discharge and vagina atrophic Speculum Exam - Cervix: normal appearance of the cervix and normal palpation Bimanual exam- vagina & uterus: normal bimanual exam, normal palpation, uterine size normal, bladder normal to palpation, normal palpation and non-tender Bimanual Exam- Adnexa, other: no masses Skin General skin exam: no rashes or lesions noted Rashes: no rashes Neuro General: patient oriented x3 Cognition (Neuro): normal cognition Extrem General: Yes normal to inspection Psych Attitude: cooperative Thought process: Normal thought process present Assessment & Plan Assessment & Plan (1) Encounter for annual routine gynecological examination: Code(s): Z01.419 - Encounter for gynecological examination (general) (routine) without abnormal findings Category: Medical Plan Discussed: Current recommendations for pap smears per ASCCP guidelines. Breast awareness, periodic self breast exams and yearly mammogram. Maintain a healthy lifestyle, well balanced diet including Calcium 1,200 mg and Vitamin D 600 IU daily, and routine exercise. Contact the office with any postmenopausal bleeding. Patient verbalizes understanding and agrees to the plan of care. She was given opportunity to ask questions and all questions were answered to the best of my ability. 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 This note is constructed using voice recognition software. While every effort has been made to ensure accuracy, mobile patrol officer errors may have been included. Coding Level of Care Code Est Pt Prev Care 40-64y(16702) Diagnoses Encounter for annual routine gynecological examination Z01.419
[2025-02-13 14:10] VITALS: BP 114/82; BMI 25.2
== END 2025-02-13 15:46 | disposition home or self-care (01) ==
LOC: HO.HWS 13:53
PROVIDERS: Visit Provider Advanced Practice Midwife
DX: Z01.419 Encounter for gynecological examination (general) (routine) without abnormal findings (principal)
CPT/HCPCS: 99396; 99459

== ENCOUNTER 2025-02-13 14:35 | Outpatient (REF) | payer MEDICAID, SELFPAY ==
--- OUTSIDE RECORDS SUMMARY | 2025-02-13 15:47 | XMS_ITS | Encounter Summary ---
Author Organization [employer] Address [address] [facility] 7t [place] [address] Care Team Providers Care Handicraft Or Hobby Shop Manager Name Role Phone Georgi [facility] Primary Care Provider [phone] Reason for Visit * Reason Comments Med Refill Encounter Details Date Type Department Care Team (Late st Contact Info) Description 02/11/2025 Refill [facility] [address] [place] [address] Leana Valdovinos MD [address] [place], [place] [phone] Acute bilateral back pain, unspecified back location Social History Tobacco Use Types Packs/Day Years [...] Office Visit [facility] [address] [place] [address] Roderick, Solange, OD [address] [place] [address] documented as of this encounter Visit Diagnoses Diagnosis Acute bilateral back pain, unspecified back location documented in this encounter Additional Health Concerns Assessment Noted Time PHQ-9 Depression Total Score: 0 05/15/20 24 8:48 AM EDT documented as of this encounter Care Teams Handicraft Or Hobby Shop Manager Relationship Specialty Start Date End Date Charlotte Laureano FNP [address] [place] [address] PCP - General Family Medicine 06/09/22 documented as of this encounter
--- OUTSIDE RECORDS SUMMARY | 2025-02-13 15:47 | XMS_ITS | Encounter Summary ---
Author Organization [employer] Address [address] [facility] 7 [place] [address] Care Team Providers Care Funeral Service Practitioner/Embalmer Name Role Phone [facility] Primary Care Provider [phone] Reason for Visit * Reason Onset Date Comments ER Follow-up 02/12/2025 Encounter Details Date Type Department Care Team ([facility] Contact Info) Description 02/12/2025 Telephone [facility] [address] [place], [place] [phone] [facility] [address] [place] [address] ER Follow-up Social History Tobacco Use Types Packs/Day [...] Telephone Encounter - Mickie Bobby RN - 02/12/2025 1:50 PM EDT TC [facility] to [facility] to clarify, they confirm they did receive the referral from [facility] provided an initial appt for pt: 03/15/[address] Puckett. TC placed to pt. And advised of this appt. Pt. States this will work for her. Took down all appt details and has no further questions or concerns * Telephone Encounter - Isha Mondragon - 02/12/2025 10:07 AM EDT Tc from pt stating called to the number a nurse provided to her and [facility] told [facility] she's not a pt there. * Telephone Encounter - Mickie Bobby RN - 02/12/2025 9:23 AM EDT [facility] checked, pt. In ED 02/09/25 for tremors in R arm and L leg. EKG and CT scan head WNL. No newmeds prescribed. Recommended f/up with neurology. TC placed to pt. Pt. Reports tremors remain at about the same level since discharge. Noted pt. Was already seen by PCP for this and was referred to neurology 01/08/25, which was sent to [facility]. Pt. Will call them to schedule appt, number provided. * Telephone Encounter - Talisha Duncan - 02/12/2025 8:48 AM EDT Patient calling to report ED visit on : Date: 02/12/2025 Hospital: [facility] Seen for: shaking on the left side of her body Symptomatic No *if yes message should go to Triage Patient advised will forward to team nurse for follow up documented in this encounter Plan of Treatment Upcoming Encounters Date Type Department Care Team (Late st Contact Info) Description 03/09/2025 3:30 PM EDT Office Visit [facility] [address] [place] [address] Roderick, Solange, OD [address] [place] [address] documented as of this encounter Visit Diagnoses Not on filedocumented in this encounter Additional Health Concerns Assessment Noted Time PHQ-9 Depression Total Score: 0 05/15/20 24 8:48 AM EDT documented as of this encounter Care Teams Funeral Service Practitioner/Embalmer Relationship Specialty Start Date End Date Charlotte Laureano FNP [address] [place] [address] PCP - General Family Medicine 06/09/22 documented as of this encounter
--- OUTSIDE RECORDS SUMMARY | 2025-02-13 15:47 | XMS_ITS | Encounter Summary ---
Author Organization [employer] Address [address] [place] [address] [address], [place] [address] Care Team Providers Care Lepidopterist Name Role Phone [facility] Primary Care Provider [phone] Encounter Details Date Type Department Care Team ([facility] Contact Info) Description 01/22/2023 Telephone [facility] [address] [place] [address] [facility] [address] [place] [address] Social History Tobacco Use Types Packs/Day Years [...] Encounters Date Type Department Care Team (Late Contact Info) Description 03/09/2025 3:30 PM EDT Office Visit [facility] [address] [place], [place] [phone] RoderickSolange meng, OD [address] [place] [address] documented as of this encounter Visit Diagnoses Not on filedocumented in this encounter Additional Health Concerns Assessment Noted Time PHQ-9 Depression Total Score: 0 11/13/19 23 1:38 PM EST documented as of this encounter Care Teams Lepidopterist Relationship Specialty Start Date End Date [place] DAO Porter [address] [place] [address] PCP - General Family Medicine 06/09/22 documented as of this encounter
--- OUTSIDE RECORDS SUMMARY | 2025-02-13 15:47 | XMS_ITS | Encounter Summary ---
Author Organization [employer] Address [address] [place] [address] [address] [place] [address] Care Team Providers Care Tower Director Name Role Phone [facility] Primary Care Provider [phone] Reason for Visit * Reason Onset Date Comments Lab Orders 02/25/2023 Encounter Details Date Type Department Care Team ([facility] st Contact Info) Description 02/25/2023 Telephone [facility] [address] [place] [address] [facility] [address] [place] [address] Lab Orders Social History Tobacco Use Types [...] - 03/15/2023 10:27 AM EDT T/C to [phone] through [employer] , Message states , The number you [...] PM EDT T/C placed to pt via [employer] [facility] Director Ana María #[id number]. Pt states she would like a lab [...] check for diabetes. Please contact pt at [phone] documented in this encounter Plan of Treatment Upcoming Encounters Date Type Department Care Team (Late st Contact Info) Description 03/09/2025 3:30 PM EDT Office Visit [facility] [address] [place] [address] Roderick, Solange, OD [address] [place] [address] documented as of this encounter Visit Diagnoses Not on filedocumented in this encounter Additional Health Concerns Assessment Noted Time PHQ-9 Depression Total Score: 0 11/13/19 23 1:38 PM EST documented as of this encounter Care Teams Tower Director Relationship Specialty Start Date End Date Charlotte Laureano FNP [address] [place] [address] PCP - General Family Medicine 06/09/22 documented as of this encounter
--- OUTSIDE RECORDS SUMMARY | 2025-02-13 15:48 | XMS_ITS | Encounter Summary ---
Author Organization [employer] Address [address] [facility] [address] [place] [address] Care Team Providers Care Tangled Yarn Spool Straightener Name Role Phone [facility] Primary Care Provider [phone] Reason for Visit * Reason Onset Date Comments Nurse Triage 11/10/2023 Encounter Details Date Type Department Care Team ([facility] st Contact Info) Description 11/10/2023 Telephone [facility] [address] [place], [place] [phone] [facility] [address] [place] [address] Nurse Triage Social History Tobacco Use Types [...] 10:49 AM EST Triage attempted x2 with [employer] Inventory Assistant ID [id number] . Both call went directly to message [...] accepted this outcome Please contact pt at [phone] (guyanese) documented in this encounter Plan of Treatment Upcoming Encounters Date Type Department Care Team (Late st Contact Info) Description 03/09/2025 3:30 PM EDT Office Visit [facility] [address] [place] [address] Solange Vaughn, OD [address] [place] [address] documented as of this encounter Visit Diagnoses Not on filedocumented in this encounter Additional Health Concerns Assessment Noted Time PHQ-9 Depression Total Score: 0 10/13/19 24 11:29 AM EST documented as of this encounter Care Teams Tangled Yarn Spool Straightener Relationship Specialty Start Date End Date Charlotte Laureano SAILMAKER [address] [place] [address] PCP - General Family Medicine 06/09/22 documented as of this encounter
--- OUTSIDE RECORDS SUMMARY | 2025-02-13 15:48 | XMS_ITS | Encounter Summary ---
Author Organization [employer] Address [address] [facility] 7t [place] [address] Care Team Providers Care Retail Pharmacy Manager Name Role Phone [facility] Primary Care Provider [phone] Encounter Details Date Type Department Care Team ([facility] st Contact Info) Description 01/25/2024 Telephone [facility] [address] [place], [place] [phone] [facility] [address] [place] [address] Social History Tobacco Use Types Packs/Day Years [...] Description 03/09/2025 3:30 PM EDT Office Visit [facility] [address] [place] [address] Roderick, Solange, OD [address] [place] [address] documented as of this encounter Visit Diagnoses Not on filedocumented in this encounter Additional Health Concerns Assessment Noted Time PHQ-9 Depression Total Score: 0 12/22/19 24 9:02 AM EDT documented as of this encounter Care Teams Retail Pharmacy Manager Relationship Specialty Start Date End Date Charlotte Laureano FNP [address] [place] [address] PCP - General Family Medicine 06/09/22 documented as of this encounter
--- OUTSIDE RECORDS SUMMARY | 2025-02-13 15:48 | XMS_ITS | Encounter Summary ---
Author Organization [employer] Address [address] [facility] 7t [place] [address] Care Team Providers Care Mental Health Clinician Name Role Phone Georgi [facility] Primary Care Provider [phone] Encounter Details Date Type Department Care Team ([facility] st Contact Info) Description 01/19/2024 Orders Only [facility] [address] [place] [address] ProviderNidia MD Social History Tobacco Use Types [...] Description 03/09/2025 3:30 PM EDT Office Visit [facility] [address] [place] [address] Roderick, Solange, OD [address] [place] [address] documented as of this encounter Procedures Procedure [...] documented as of this encounter Care Teams Mental Health Clinician Relationship Specialty Start Date End Date Charlotte Laureano FNP [address] [place] [address] PCP - General Family Medicine 06/09/22 documented as of this encounter
--- OUTSIDE RECORDS SUMMARY | 2025-02-13 15:48 | XMS_ITS | Encounter Summary ---
Author Organization [employer] Address [address] [facility] [address] [place] [address] Care Team Providers Care Ethyl Blender Name Role Phone [facility] Primary Care Provider [phone] Reason for Visit * Reason Onset Date Comments Referral 12/31/2023 Encounter Details Date Type Department Care Team ([facility] st Contact Info) Description 12/31/2023 Telephone [facility] [address] [place], [place] [phone] [facility] [address] [place] [address] Referral Social History Tobacco Use Types Packs/Day [...] a referral to the vision center at [facility]. A referral had been placed on 05/20/23 to [facility] eyecare for a history of glaucoma. Pt needs a new referral placed. Forwarding to provider * Telephone Encounter - Cami Workman - 12/31/2023 9:47 AM EDT TC from pt requesting new referral to vision center . Location: [facility] Address: [address] [facility] documented in this encounter Plan of Treatment Upcoming Encounters Date Type Department Care Team (Late st Contact Info) Description 03/09/2025 3:30 PM EDT Office Visit [facility] [address] [place] [address] Roderick, Solange, OD [address] [place] [address] documented as of this encounter Visit Diagnoses Not on filedocumented in this encounter Additional Health Concerns Assessment Noted Time PHQ-9 Depression Total Score: 0 12/22/19 24 9:02 AM EDT documented as of this encounter Care Teams Ethyl Blender Relationship Specialty Start Date End Date Charlotte Laureano FNP [address] [place] [address] PCP - General Family Medicine 06/09/22 documented as of this encounter
--- OUTSIDE RECORDS SUMMARY | 2025-02-13 15:48 | XMS_ITS | Encounter Summary ---
Author Organization [employer] Address [address] [facility] [address] [place] [address] Care Team Providers Care Classroom Teacher Name Role Phone [facility] Primary Care Provider [phone] Reason for Visit * Reason Onset Date Comments call back 11/26/2022 Encounter Details Date Type Department Care Team ([facility] st Contact Info) Description 11/26/2022 Telephone [facility] MEDICINE [address] [place] [address] [facility] [address] [place] [address] call back Social History Tobacco Use Types [...] AM EST TC returned to pt at [phone], utilizing [employer] Client Services Specialist ID:[id number], regarding message belowper [facility]. Pt informed labs show high cholesterol [...] she can obtain copy of labs at [facility] Medical Records in basement. Pt verbalized understanding. Pt to F/U as needed. ----- Message from [facility] sent at 11/26/2022 8:44 AM [...] 3:30 PM EDT Office Visit [facility] [address] [place] [address] Roderick, Solange, OD [address] [place] [address] documented as of this encounter Visit Diagnoses Not on filedocumented in this encounter Additional Health Concerns Assessment Noted Time PHQ-9 Depression Total Score: 0 11/13/19 23 1:38 PM EST documented as of this encounter Care Teams Classroom Teacher Relationship Specialty Start Date End Date [facility] [address] [place] [address] PCP - General Family Medicine 06/09/22 documented as of this encounter
--- OUTSIDE RECORDS SUMMARY | 2025-02-13 15:48 | XMS_ITS | Encounter Summary ---
Author Organization [employer] Address [address] [place] [address] 7 [place] [address] Care Team Providers Care Coal Cutter Name Role Phone [facility] Primary Care Provider [phone] Reason for Visit * Reason Onset Date Comments Lab Orders 11/23/2022 Encounter Details Date Type Department Care Team ([facility] st Contact Info) Description 11/23/2022 Telephone [facility] [address] [place] [address] [facility] [address] [place] [address] Lab Orders Social History Tobacco Use Types [...] blood work order Please contact pt at [phone] documented in this encounter Plan of Treatment Upcoming Encounters Date Type Department Care Team (Late st Contact Info) Description 03/09/2025 3:30 PM EDT Office Visit [facility] [address] [place], [place] [phone] Solange Vaughn, OD [address] [place] [address] documented as of this encounter Visit Diagnoses Not on filedocumented in this encounter Additional Health Concerns Assessment Noted Time PHQ-9 Depression Total Score: 0 11/13/19 23 1:38 PM EST documented as of this encounter Care Teams Coal Cutter Relationship Specialty Start Date End Date Charlotte Laureano FNP [address] [place] [address] PCP - General Family Medicine 06/09/22 documented as of this encounter
--- OUTSIDE RECORDS SUMMARY | 2025-02-13 15:48 | XMS_ITS | Encounter Summary ---
Author Organization [employer] Address [address] [place] [address] 7 [place] [address] Care Team Providers Care Assistant Professor Nurse Education Name Role Phone [facility] Primary Care Provider [phone] Reason for Visit * Reason Onset Date Comments Lab Orders 11/16/2022 Encounter Details Date Type Department Care Team ([facility] st Contact Info) Description 11/16/2022 Telephone [facility] [address] [place] [address] [facility] [address] [place] [address] Lab Orders Social History Tobacco Use Types [...] blood work order Please contact pt at [phone] documented in this encounter Plan of Treatment Upcoming Encounters Date Type Department Care Team (Late st Contact Info) Description 03/09/2025 3:30 PM EDT Office Visit [facility] [address] [place] [address] Solange Vaughn, OD [address] [place] [address] documented as of this encounter Visit Diagnoses Not on filedocumented in this encounter Additional Health Concerns Assessment Noted Time PHQ-9 Depression Total Score: 0 11/13/19 23 1:38 PM EST documented as of this encounter Care Teams Assistant Professor Nurse Education Relationship Specialty Start Date End Date Charlotte Laureano FNP [address] [place] [address] PCP - General Family Medicine 06/09/22 documented as of this encounter
--- OUTSIDE RECORDS SUMMARY | 2025-02-13 15:48 | XMS_ITS | Clinical Summary ---
Author Organization [employer] Address 75 [facility] 7t [place] [address] Care Team Providers Care Field Tax Auditor Name Role Phone Georgi [facility] Primary Care Provider [phone] Allergies Active Allergy Reactions Criticality Noted Date Comments Amoxicillin 09/23/2017 Other reaction(s): hair loss [place] 09/09/2018 Other reaction(s): Rash, Rash Risperidone 02/01/2014 [...] day 510 g 2 08/28/20 24 Active atorvastatin (Lipitor) 80 MG tablet TAKE [...] OR SPLIT. 180 tablet 02/03/20 25 Active naproxen sodium (Aleve) 220 MG tabletIndicatio ns:Acute bilateral back pain, unspecified back location TAKE 1 TABLET BY MOUTH TWICE DAILY IN THE MORNING AND AT BEDTIME NEEDED FOR MILD PAIN 60 tablet 1 02/13/20 25 Active metFORMIN XR (Glucophage-XR) 500 MG 24 hr tabletIndicatio ns:Class 1 obesity due to excess calories with serious comorbidity and body mass index (BMI) of 33.0 to 33.9 in adult TAKE 1 TABLET BY MOUTH TWICE A DAY. DO NOT CRUSH, CHEW OR SPLIT. 180 tablet 10/09/20 24 2024 Discontinued(R eorder (will not trigger notification to Pharmacy)) naproxen sodium (Aleve) 220 MG tabletIndicatio ns:Acute bilateral back pain, unspecified back location Take 1 tablet (220 mg) by mouth if needed in the morning and at bedtime for mild pain. 60 tablet 1 11/14/19 25 2024 Discontinued Active Problems Problem [...] pain 11/02/2022 Overview (11/02/2022): - Presented to [facility] ED 07/25/22 with c/o chest tightness and [...] not helped with weight loss Referred to [facility] weight mgnmt 08/2022, denied due to lack of comorbidity Metformin 500mg b.I.d-tolerating well Assessment & Plan (12/22/2023 10:15 AM EDT): Metformin has been effective adjunct for patient along with diet/exercise Continue 500mg b.I.d At follow up plan to check B12 Healthcare maintenance 11/02/2022 Overview (12/22/2023): Mammo: 01/12/2022, bi-rads 1, followed by [facility] 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 Pap: 01/2023 Neg HPV neg, followed by [facility] C-scope: 08/2015 neg; repeat 08/2025 BMD: Routine age 65 Immunizations: Up to date Assessment & Plan (12/22/2023 10:15 AM EDT): Updated mammogram ordered Patient will call to scheduled annual 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 exam Assessment & Plan (04/25/2023 4:48 PM [...] Encounters Date Type Department Care Team Description 02/12/[address] [address] Charlotte Laureano FNP ER Follow-up 02/11/2025 Refill [facility] [address] Leana Valdovinos MD Acute bilateral back pain, unspecified back location 02/06/[address] [place] [address] Charlotte Laureano FNP Medication Question 02/05/[address] [place] [address] Charlotte Laureano FNP Results 02/05/[address] [place] [address] Charlotte Laureano FNP Med Refill 02/01/20[address] [place] [address] Charlotte Laureano FNP Class 1 obesity due to excess calories with serious comorbidity and body mass index (BMI) of 33.0 to 33.9 in adult 01/08/2025 10:00 AM EDT Office Visit [facility] [place] [address] Charlotte Laureano FNP Healthcare maintenance (Primary Dx); Encounter for immunization; Tremor of face and hands; Dietary counseling; Exercise counseling 01/08/2025 Travel 01/02/2025 Telephone [facility] [place] [address] Charlotte Laureano FNP Medication Question 01/01/2025 Orders Only GENERIC EXTERNAL DATA DEPARTMENT Provider, Generic External Data 12/28/2024 Patient Outreach [facility] [place] [address] Charlotte Laureano FNP Pre-visit Planning (SDOH screening completed on 10/27/2024) 12/25/2024 9:30 AM EDT Office Visit [facility] ADULT DENTAL [address] [place] [address] Doc Garzon DMD 12/22/2024 Population Health Risk Score [facility] () Department [address] [place] [id number] Provider, Population Health Generic 12/07/2024 Refill [facility] [address] [place] [address] Charlotte Laureano FNP from Last 3 Months Immunizations Name Administration [...] your housing situation today? I have vivian jennifer 12/15/[address] you li [...] Description 03/09/2025 3:30 PM EDT Office Visit [facility] OPTOMETRY [address] [place] [address] RoderickSolange meng, OD [address] [place] [address] Health Maintenance Due Date Last Done Comments [...] EDT Narrative 02/04/2025 8:27 AM EDT ? [facility] ? [address] ?[place] [address] ?[phone] ? Mammography Report ? Signed ? Patient: Colon,Caro ?MR#: [id number] ?? 3 ? : 1965 ?Acct:[id number] ? Age/Sex: 59 / F ?ADM Date: 01/26/25 ? Loc: HO.MAMMO ? Attending Dr: Rosemary Germain MD ? Ordering Physician: Rosemary Germain MD ?Results: 2Beni ?? gn Findings ? Date of Service: 01/26/25 ?Follow Up: 1 Year From Orig ?? inal Mammogram ? Procedure(s): MM tomosynthesis screening BI ?? Accession Number(s): [id number] ? cc: Rosemary Germain MD ? EXAMINATION: [...] DD/ 0950 ? TD/TT: 01/26/25 1016 ? Cupola Charger Insulation: ? Procedure Note Clement Martinez - 02/04/2025 [facility] [address] [place] [address] [place] [address] Mammography Report Signed Patient: Itzel Duncan EMR#: [id number] 3 : 1965Acct:[id number] Age/Sex: 59 / FADM Date: 01/26/25 Loc: [facility] Attending Dr: Rosemary Germain MD Ordering Physician: Rosemary Germain MDResults: 2Beni gn Findings Date of Service: 01/26/25Follow Up: 1 Year From Orig inal Mammogram Procedure(s): MM tomosynthesis screening BI Accession Number(s): [id number] cc: Rosemary Germain MD EXAMINATION: MM SCREENING [...] Val Baker DO 02/04/2025 08:25 AM EDT Dictated By: Val Baker DO Signed By: <Electronically signed by Val Baker DO in OV> 02/04/25 0825 DD/ 0950 TD/TT: 01/26/25 1016 Cupola Charger Insulation: us Rosemary Germain MD IMG BI PROCEDURES Edited Resu lt - Final * Glucose, Whole Blood (01/01/2025 9:48 AM EDT) Glucose, Whole Blood 94 60 - 115 mg/dL [facility] Comment:METER #: [id number] 01/01/2025 9:48 AM EDT 01/01/2025 9:56 AM EDT us Generic External Data Provider LAB BLOOD ORDERAB LES Final Result [facility] [address] [place] [phone] * Lipid Panel, Standard (07/08/2023 1:24 PM EDT) Triglycerides 136 <150 mg/dL [facility] Comment:Desirable Triglyceri de: less than 150 mg/dLBorderline High Triglyceride 150-199 mg/dLHigh Triglyceride: 200-499 mg/dLVery High Triglyceride: greater than or equal to 5OO mg/dL Cholesterol 154 <200 mg/dL [facility] Comment:Desirable Cholestero l: less than 200 mg/dLBorderline High Cholesterol: 200-239 mg/dLHigh Cholesterol: greater than 239 mg/dL LDL Cholesterol Calculated 75 <100 mg/dL [facility] Comment:Desirable LDL: less than 100 mg/dLNear Optimal/Above Optimal LDL: 110- 129 mg/dLBorderline High LDL: 130-159 mg/dLHigh LDL: 160-189 mg/dLVery High LDL: greater than or equal to 190 mg/dL HDL Cholesterol 52 >40 mg/dL [facility] Comment:Desirable HDL: great er than 40 mg/dL Note: This HDL assay may give artificially low results in patients with liver disease. Blood Venous blood specimen / Unknown 07/08/2023 1:24 PM EDT 07/08/2023 3:54 PM EDT [facility] ASSOCIATE PROFESSOR OF CRIMINAL JUSTICE LAB BLOOD ORDERABLES Final Re sult [facility] [address] [place] [address] [phone] * Hm Pap Smear (02/01/2023) Pap smear PERFORMED Comment:HPV MRNA NOT DETECTE D Historical Provider HEALTH MAINTENANCE Final Result * Hepatitis C Antibody with Reflex to HCV, RNA, Quantitative, Real-Time PCR (11/24/2022 8:33 AM EST) Hepatitis C Antibody NON-REACT MALIA NON-REACT MALIA [facility] Index 0.05 <1.00 [facility]kitt Comment: HCV antibody was non-reactive. There is no laboratory evidence of HCV infection. In most cases, no further action is required. However, if recent HCV exposure is suspected, a test for HCV RNA (test code 10169) is suggested. For additional information please refer to http://[employer].Intale/faq/BIB04v6 (This link is being provided for informational/ educational purposes only.) Blood Venous blood specimen / Unknown 11/24/2022 8:33 AM EST 11/24/2022 8:34 AM EST Narrative [facility] - 11/24/2022 8:43 PM EST FASTING:YES FASTING: YES [facility] LAB BLOOD ORDERABLES Final Re sult [facility] [address] [facility], [place] [address] [facility] [address] [facility], (N[address]) [place] [address] * HIV-1/2 Antigen and Antibodies, Fourth Generation, with Reflexes (11/24/2022 8:33 AM EST) HIV Antigen/Antibody, 4th Generation NON-REAC TIVE NON-REAC TIVE [facility] Comment: HIV-1 antigen and HIV-1/HIV-2 antibodies [...] ?? For additional information please refer to http://[employer].Intale/faq/CTX015 (This link is being provided for informational/ educational purposes only.) The performance of this assay has not been clinically validated in patients less than 2 years old. Blood Venous blood specimen / Unknown 11/24/2022 8:33 AM EST 11/24/2022 8:34 AM EST Narrative [facility] - 11/24/2022 8:43 PM EST FASTING:YES FASTING: YES [facility] ASSOCIATE PROFESSOR OF [employer]INAL [employer]ICE LAB BLOOD ORDERABLES Final Re sult [facility] [address] [facility], [place] [address] [facility] [address] [facility], ([address]) [place] [address] * Hm Colonoscopy (07/24/2015 8:38 AM EDT) Historical Provider MD HEALTH MAINTENANCE Final Result from Last 3 Months or Most Recently Relevant to Health Maintenance [place] [address] [address] [address] C3 [facility]AL-[facility] MEDICAID STAND ADULT Care Teams Field Tax Auditor Relationship Specialty Start Date End Date [place] [facility] [address] [place] [address] PCP - General Family Medicine 06/09/22
--- OUTSIDE RECORDS SUMMARY | 2025-02-13 15:48 | XMS_ITS | Encounter Summary ---
Author Organization [employer] Address [address] [facility] 7 [place] [address] Care Team Providers Care Kiln Tester Name Role Phone [facility] Primary Care Provider [phone] Reason for Visit * Reason Onset Date Comments Med Refill 03/31/2024 Encounter Details Date Type Department Care Team ([facility] Contact Info) Description 03/31/2024 Telephone [facility] MEDICINE [address] [place], [place] [phone] [facility] 230 [place] [address] Med Refill Social History Tobacco Use Types [...] 9:40 AM EDT Script was sent to [facility] on 02/07/24 90 day supply with 2 refills. * Telephone Encounter - Stefania Cardenas - 03/31/2024 9:25 AM EDT TC from pt requesting medication refill. Medications needing refill : metFORMIN XR (Glucophage-XR) 500 MG 24 hr tablet To be sent to: [facility] [place], [place] - [address] [facility] documented in this encounter Plan of Treatment Upcoming Encounters Date Type Department Care Team (Late st Contact Info) Description 03/09/2025 3:30 PM EDT Office Visit [facility] OPTOMETRY [address] [place] [address] Solange Vaughn, OD [address] [place] [address] documented as of this encounter Visit Diagnoses Not on filedocumented in this encounter Additional Health Concerns Assessment Noted Time PHQ-9 Depression Total Score: 0 12/22/19 9:02 AM EDT documented as of this encounter Care Teams Kiln Tester Relationship Specialty Start Date End Date [facility] DAO [place] [address] [place] [address] PCP - General Family Medicine 06/09/22 documented as of this encounter
--- OUTSIDE RECORDS SUMMARY | 2025-02-13 15:48 | XMS_ITS | Encounter Summary ---
Author Organization [employer] Address [address] [place] [address] 7 [place] [address] Care Team Providers Care Ski Patroller Name Role Phone [facility] Primary Care Provider [phone] Reason for Visit * Reason Onset Date Comments Results 07/12/2023 Encounter Details Date Type Department Care Team ([facility] st Contact Info) Description 07/12/2023 Telephone [facility] MEDICINE [address] [place] [address] [facility] [address] [place] [address] Results Social History Tobacco Use Types Packs/Day [...] 11:46 AM EDT T/C to pt. Through [employer] id - [id number] for below message, pt. Was informed regarding normal lipids labs. Pt. Verbally agreed and understood. * Telephone Encounter - Stefania Cardenas - 07/13/2023 4:17 PM EDT Pt calling again requesting a call in regards to results of 07/08 labs. Please contact pt at [phone] ([place]) * Telephone Encounter - Maria De Jesus Shultz - 07/12/2023 9:14 AM EDT Tc from pt requesting a call in regards to results of 07/08 labs. Please contact pt at [phone] ([place]) documented in this encounter Plan of Treatment Upcoming Encounters Date Type Department Care Team (Late st Contact Info) Description 03/09/2025 3:30 PM EDT Office Visit [facility] OPTOMETRY [address] [place] [address] Roderick, Solange, OD [address] [place] [address] documented as of this encounter Visit Diagnoses Not on filedocumented in this encounter Additional Health Concerns Assessment Noted Time PHQ-9 Depression Total Score: 0 04/27/20 23 9:47 AM EDT documented as of this encounter Care Teams Ski Patroller Relationship Specialty Start Date End Date Charlotte Laureano FNP [address] [place] [address] PCP - General Family Medicine 06/09/22 documented as of this encounter
--- OUTSIDE RECORDS SUMMARY | 2025-02-13 15:48 | XMS_ITS | Encounter Summary ---
Author Organization [employer] Address [address] [facility] 7 [place] [address] Care Team Providers Care Site Acquisition Manager Name Role Phone [facility] Primary Care Provider [phone] Reason for Visit * Reason Onset Date Comments Hospital Follow-up 11/04/2023 Encounter Details Date Type Department Care Team ([facility] st Contact Info) Description 11/04/2023 Telephone [facility] MEDICINE 230 [place], [place] [phone] [facility] 230 [place], [place] [phone] Hospital Follow-up Social History Tobacco Use Types [...] 8:42 AM EST Tc from Radha at [facility] requesting a HDF follow up appt for the patient. Tc from pt requesting a HDF appt. Hospital: [facility] Date of admission: 10/28 Discharge date: 11/04 Diagnosed: schizophrenia Disorder Please Call [facility] at [phone] documented in this encounter Plan of Treatment Upcoming Encounters Date Type Department Care Team (Late st Contact Info) Description 03/09/2025 3:30 PM EDT Office Visit [facility] OPTOMETRY [address] [place] [address] Solange Vaughn, OD 230 [place] [address] documented as of this encounter Visit Diagnoses Not on filedocumented in this encounter Additional Health Concerns Assessment Noted Time PHQ-9 Depression Total Score: 0 10/13/19 24 11:29 AM EST documented as of this encounter Care Teams Site Acquisition Manager Relationship Specialty Start Date End Date Charlotte Laureano FNP [address] [place] [address] PCP - General Family Medicine 06/09/22 documented as of this encounter
--- OUTSIDE RECORDS SUMMARY | 2025-02-13 15:48 | XMS_ITS | Encounter Summary ---
Author Organization [employer] Address [address] [place] [address] [address] [address] Care Team Providers Care Real Estate Leasing Agent Name Role Phone [facility] Primary Care Provider [phone] Reason for Visit * Reason Onset Date Comments Lab Orders 12/07/2022 Encounter Details Date Type Department Care Team ([facility] Contact Info) Description 12/07/2022 Telephone [facility] MEDICINE [address] [place] [address] [facility] [address] [place] [address] Lab Orders Social History Tobacco Use Types [...] Upcoming Encounters Date Type Department Care Team ([facility] Contact Info) Description 03/09/2025 3:30 PM EDT Office Visit [facility] OPTOMETRY [address] [place] [address] Solange Vaughn, OD [address] [place] [address] documented as of this encounter Visit Diagnoses Not on filedocumented in this encounter Additional Health Concerns Assessment Noted Time PHQ-9 Depression Total Score: 0 11/13/19 23 1:38 PM EST documented as of this encounter Care Teams Real Estate Leasing Agent Relationship Specialty Start Date End Date Charlotte Laureano FNP [address] [place] [address] PCP - General Family Medicine 06/09/22 documented as of this encounter
--- OUTSIDE RECORDS SUMMARY | 2025-02-13 15:48 | XMS_ITS | Encounter Summary ---
Author Organization [employer] Address [address] [facility] 7 [place] [address] Care Team Providers Care Certified Nurses' Aide Name Role Phone [facility] Primary Care Provider [phone] Reason for Visit * Reason Onset Date Comments Results 10/14/2023 Encounter Details Date Type Department Care Team ([facility] st Contact Info) Description 10/14/2023 Telephone [facility] MEDICINE 230 [place], [place] [phone] [facility] 230 [place] [address] Results Social History Tobacco Use Types Packs/Day [...] regards to results. Please contact pt at [phone] * Telephone Encounter - Maria De Jesus Shultz - 10/15/2023 9:06 AM EST Tc from pt calling in regards to results. Please contact pt at [phone] * Telephone Encounter - Maria De Jesus Shultz - 10/14/2023 2:43 PM EST TC from pt requesting call back regarding Results. Type of results: labs Date when done: 10/13 Facility: [facility] documented in this encounter Plan of Treatment Upcoming Encounters Date Type Department Care Team (Late st Contact Info) Description 03/09/2025 3:30 PM EDT Office Visit [facility] OPTOMETRY [address] [place] [address] Roderick Solange, OD [address] [place] [address] documented as of this encounter Visit Diagnoses Not on filedocumented in this encounter Additional Health Concerns Assessment Noted Time PHQ-9 Depression Total Score: 0 10/13/19 24 11:29 AM EST documented as of this encounter Care Teams Certified Nurses' Aide Relationship Specialty Start Date End Date Charlotte Laureano FNP [address] [place] [address] PCP - General Family Medicine 06/09/22 documented as of this encounter
--- OUTSIDE RECORDS SUMMARY | 2025-02-13 15:48 | XMS_ITS | Encounter Summary ---
Author Organization [employer] Address 75 [facility] 7 [place] [address] Care Team Providers Care Co Founder & Ceo Name Role Phone [facility] Primary Care Provider [phone] Reason for Visit * Reason Onset Date Comments Results 11/17/2023 Encounter Details Date Type Department Care Team ([facility] st Contact Info) Description 11/17/2023 Telephone [facility] MEDICINE 230 [place], [place] [phone] [facility] 230 [place] [address] Results Social History Tobacco Use Types Packs/Day [...] a PAP smear. Please contact pt at [phone] * Telephone Encounter - Dony Hanson - [...] Office Visit [facility] OPTOMETRY [address] [place] [address] Roderick, Solange, OD [address] [place], [place] [phone] documented as of this encounter Visit Diagnoses Not on filedocumented in this encounter Additional Health Concerns Assessment Noted Time PHQ-9 Depression Total Score: 0 10/13/19 24 11:29 AM EST documented as of this encounter Care Teams Co Founder & Ceo Relationship Specialty Start Date End Date Charlotte Laureano FNP [address] [place] [address] PCP - General Family Medicine 06/09/22 documented as of this encounter
--- OUTSIDE RECORDS SUMMARY | 2025-02-13 15:48 | XMS_ITS | Encounter Summary ---
Author Organization [employer] Address 75 [facility] 7 [place] [address] Care Team Providers Care Farmworker Livestock Name Role Phone [facility] Primary Care Provider [phone] Reason for Visit * Reason Onset Date Comments Nurse Triage 11/09/2023 Encounter Details Date Type Department Care Team ([facility] st Contact Info) Description 11/09/2023 Telephone [facility] MEDICINE 230 [place], [place] [phone] [facility] 230 [place] [address] Nurse Triage Social History Tobacco Use Types [...] 3:30 PM EDT Office Visit [facility] OPTOMETRY [address] [place] [address] RodreickSolange meng, OD 230 [place] [address] documented as of this encounter Visit Diagnoses Not on filedocumented in this encounter Additional Health Concerns Assessment Noted Time PHQ-9 Depression Total Score: 0 10/13/19 24 11:29 AM EST documented as of this encounter Care Teams Farmworker Livestock Relationship Specialty Start Date End Date Charlotte Laureano FNP [address] [place] [address] PCP - General Family Medicine 06/09/22 documented as of this encounter
--- OUTSIDE RECORDS SUMMARY | 2025-02-13 15:48 | XMS_ITS | Encounter Summary ---
Author Organization [employer] Address [address] [facility] 7t [place] [address] Care Team Providers Care Director Of Student Services Name Role Phone [facility] Primary Care Provider [phone] Encounter Details Date Type Department Care Team ([facility] st Contact Info) Description 07/27/2024 Telephone [facility] MEDICINE 230 [place], [place] [phone] [facility] [address] [place] [address] Social History Tobacco Use Types Packs/Day Years [...] Description 03/09/2025 3:30 PM EDT Office Visit [facility] OPTOMETRY [address] [place] [address] Roderick, Solange, OD [address] [place] [address] documented as of this encounter Visit Diagnoses Not on filedocumented in this encounter Additional Health Concerns Assessment Noted Time PHQ-9 Depression Total Score: 0 05/15/20 24 8:48 AM EDT documented as of this encounter Care Teams Director Of Student Services Relationship Specialty Start Date End Date Charlotte Laureano FNP [address] [place] [address] PCP - General Family Medicine 06/09/22 documented as of this encounter
--- OUTSIDE RECORDS SUMMARY | 2025-02-13 15:48 | XMS_ITS | Encounter Summary ---
Author Organization [employer] Address [address] [facility] 7 [place] [address] Care Team Providers Care Account Resolution Expert Name Role Phone [facility] Primary Care Provider [phone] Reason for Visit * Reason Onset Date Comments Med Refill 03/20/2024 Encounter Details Date Type Department Care Team ([facility] st Contact Info) Description 03/20/[address] [facility] [address] [place], [place] [phone] [facility] 230 [place] [address] Med Refill Social History Tobacco Use Types [...] 9:31 AM EDT Medication was sent to [facility] on 02/07/24 #180 with 2 refills. * Telephone Encounter - Stefania Cardenas - 03/20/2024 9:23 AM EDT TC from pt requesting medication refill. Medications needing refill : metFORMIN XR (Glucophage-XR) 500 MG 24 hr tablet To be sent to: [facility] - [place], [place] - 230 [facility] documented in this encounter Plan of Treatment Upcoming Encounters Date Type Department Care Team (Late st Contact Info) Description 03/09/2025 3:30 PM EDT Office Visit [facility] OPTOMETRY [address] [place] [address] Solange Vaughn, OD 230 [place] [address] documented as of this encounter Visit Diagnoses Not on filedocumented in this encounter Additional Health Concerns Assessment Noted Time PHQ-9 Depression Total Score: 0 12/22/19 24 9:02 AM EDT documented as of this encounter Care Teams Account Resolution Expert Relationship Specialty Start Date End Date [facility], DAO [address] [place] [address] PCP - General Family Medicine 06/09/22 documented as of this encounter
--- OUTSIDE RECORDS SUMMARY | 2025-02-13 15:48 | XMS_ITS | Encounter Summary ---
Author Organization [employer] Address [address] [facility] 7t [place] [address] Care Team Providers Care Garage Construction Equipment Mechanic Name Role Phone Georgi [facility] Primary Care Provider [phone] Encounter Details Date Type Department Care Team ([facility] st Contact Info) Description 05/25/2024 Orders Only [facility] 230 [place] [address] Noreen Krishnamurthy RN Social History Tobacco Use [...] t he electric, gas, oil or water [employer] threatened to shut off services in your [...] Description 03/09/2025 3:30 PM EDT Office Visit [facility] OPTOMETRY [address] [place], [place] [phone] RoderickSolange meng, OD 230 [place] [address] documented as of this encounter Visit Diagnoses Not on filedocumented in this encounter Additional Health Concerns Assessment Noted Time PHQ-9 Depression Total Score: 0 05/15/20 24 8:48 AM EDT documented as of this encounter Care Teams Garage Construction Equipment Mechanic Relationship Specialty Start Date End Date Charlotte Laureano FNP 230 [place] [address] PCP - General Family Medicine 06/09/22 documented as of this encounter
== END 2025-02-13 14:36 | disposition home or self-care (01) ==
LOC: HO.LAB 14:35
PROVIDERS: Visit Provider Advanced Practice Midwife
DX: Z13.89 Encounter for screening for other disorder (principal)

== ENCOUNTER 2025-06-19 11:38 | Outpatient (AMB) | payer MEDICAID, SELFPAY ==
--- NOTE | 2025-06-19 11:54 | A.OFFVIS_ITS ---
Intake Visit Reasons: 3 Months / TD Allergies No Known Allergies Allergy (Verified 02/13/25 14:10) HPI Comments Details: 60 yo woman with diagnosis of schizoprenia, taking multiple meds including haloperidol and benztropine, was here for tremor. she said that she has noted this tremor for a few months but she was also not sure.? He showed me the medicines she had been taking including haloperidol and also stated that 4 days ago she stopped taking it because of tremor.? In her last benztropine was prescribed but I was not sure if she was taking it. She fell better with benztropine and tremor was better. No side-effects were reported. [facility] Medical History (Updated 06/19/25 @ 11:59 by Imtiaz Puckett MD) Schizophrenia, paranoid type Paranoid delusion Renal cyst Anxiety Elevated cholesterol Occasional tremors Surgical History Hx of colonoscopy Hx of section Hx of tubal ligation Social History Household Members: None Housing: Apartment Do you presently have visiting nurse or other home services: No Alcohol intake: never Patient Tobacco Use Status: Never used Tobacco Tobacco use type: Cigarette e-Cigarette/Vaping Use: Former Use Second Hand Smoke Exposure: No Substance Use Type: Caffiene service: No Sexual orientation: Straight/Heterosexual Review of Systems Const Details: Complaining of hand tremor. Physical Exam Neuro Other: Alert and awake with normal spontaneity of speech fluency comprehension and flat affect. There was mild bilateral hand tremor. Balance gait and coordination were normal. Assessment & Plan Assessment & Plan (1) Tardive dyskinesia: Code(s): G24.01 - Drug induced subacute dyskinesia Category: Medical Plan Impression: Tardive dyskinesia Rec: Continue benztropine 0.5mg bid Medications: New benztropine 0.5 mg PO BID 180 tabs 1RF Coding Level of Care Code Est Pt Level 4 (70166) Diagnoses Tardive dyskinesia G24.01
--- OUTSIDE RECORDS SUMMARY | 2025-06-19 14:10 | XMS_ITS | Encounter Summary ---
Author Organization [employer] Address [address] [place] [address] [address] [address] Care Team Providers Care Director Emergency Department Name Role Phone [facility] Primary Care Provider [phone] Encounter Details Date Type Department Care Team ([facility] Contact Info) Description 01/22/2023 Telephone [facility] MED[facility]INE [address] [place] [address] [phone] Social History Tobacco Use Types Packs/Day Years [...] Department Care Team (Late Contact Info) Description 07/09/2025 9:00 AM EDT Office Visit [facility] [address] [place] [phone] [phone] documented as of this encounter Visit Diagnoses Not on filedocumented in this encounter Additional Health Concerns Assessment Noted Time PHQ-9 Depression Total Score: 0 11/13/19 23 1:38 PM EST documented as of this encounter Care Teams Director Emergency Department Relationship Specialty Start Date End Date Georgi DAO Porter 230 [place] [address] PCP - General Family Medicine 06/09/22 documented as of this encounter
--- OUTSIDE RECORDS SUMMARY | 2025-06-19 14:10 | XMS_ITS | Clinical Summary ---
Author Organization [employer] Address 75 [facility] 7t [place] [address] Care Team Providers Care Die Equipment Operator Name Role Phone Georgi [facility] Primary Care Provider [phone] Allergies Active Allergy Reactions Criticality Noted Date Comments Amoxicillin 09/23/2017 Other reaction(s): hair loss [place] 09/09/2018 Other reaction(s): Rash, Rash Risperidone 02/01/2014 Other reaction(s): Gynecomastia Medications * This document contains information received from the source organization and may not represent a complete record from that organization. cloNIDine (Catapres) 0.2 MG tablet Take 0.2 [...] NOT CRUSH, CHEW OR SPLIT. 180 tablet 05/07/20 25 Active Ketotifen Fumarate 0.035 % solution PLACE 1 DROP IN THE AFFECTED EYE (s) TWICE DAILY IN THE MORNING AND AT BEDTIME NEEDED FOR ITCHING OR REDNESS FOR 7 DAYS 5 mL 1 05/09/20 25 Active FT All Day Pain Relief 220 MG tabletIndicatio ns:Acute bilateral back pain, unspecified back location TAKE 1 TABLET BY MOUTH TWICE DAILY IN THE MORNING AND AT BEDTIME NEEDED FOR MILD PAIN 60 tablet 1 05/30/20 25 Active acetaminophen (Tylenol Extra Strength) 500 MG tablet Take 1 tablet (500 mg) by mouth every 8 (eight) hours if needed for moderate pain. 90 tablet 06/12/20 25 2024 Active famotidine (Pepcid) 40 MG tablet Take 1 tablet (40 mg) by mouth 2 times daily. 60 tablet 092025 Active Pain Reliever Plus 250-250-65 MG tablet TAKE 1 TABLET BY MOUTH EVERY 6 TO 8 HOURS NEEDED FOR MIGRAINE NO MORE THAN THAN 2 DAYS PER WEEK 07/27/202024 Discontinued(T herapy completed) naproxen sodium (Aleve) 220 MG tabletIndicatio ns:Acute bilateral back pain, unspecified back location TAKE 1 TABLET BY MOUTH TWICE DAILY IN THE MORNING AND AT BEDTIME NEEDED FOR MILD PAIN 60 tablet 1 02/13/20 25 2024 Discontinued naproxen (Naprosyn) 500 MG tabletIndicatio ns:Armpit pain, left Take 1 tablet (500 mg) by mouth 2 times daily for 7 days. Do not take with FT all day pain relief during the 7 days . Can continue with FT all day after completion of naprosyn 14 tablet 06/06/202024 Discontinued(S halle effects) Active Problems Problem Noted Date Diagnosed Date Macular degeneration 03/14/2025 History of renal calculi 01/11/2024 Schizophrenia 11/16/2023 Assessment & Plan (11/16/2023 10:07 AM EST): As above Upper back pain 11/16/2023 Assessment & Plan (11/16/2023 10:07 AM EST): Apply heat on affected area Acetaminophen PRN Hair loss 11/16/2023 Assessment & Plan (11/16/2023 10:07 AM EST): TSH levels ordered F/u with PCP Chest pain 11/02/2022 Overview (11/02/2022): - Presented to [facility] 07/25/22 with c/o chest tightness and [...] not helped with weight loss Referred to [facility] weight mgnmt 08/2022, denied due to lack of comorbidity Metformin 500mg b.I.d-tolerating well Assessment & Plan (12/22/2023 10:15 AM EDT): Metformin has been effective adjunct for patient along with diet/exercise Continue 500mg b.I.d At follow up plan to check B12 Healthcare maintenance 11/02/2022 Overview (12/22/2023): Mammo: 01/12/2022, bi-rads 1, followed by [facility] RN GYN Pap: 01/2023 Neg HPV neg, followed by [facility] C-scope: 08/2015 neg; repeat 08/2025 BMD: Routine age 65 Immunizations: Up to date Assessment & Plan (12/22/2023 10:15 AM EDT): Updated mammogram ordered Patient will call to scheduled annual RN GYN exam Assessment & Plan (04/25/2023 4:48 PM EDT): Multivitamin sent to the pharmacy Constipation 09/23/2017 Chloasma 06/10/2017 Vitamin D deficiency 08/17/2016 Bipolar I disorder 08/21/2015 Overview (02/22/2023): Followed by outside psychiatry and therapy Clonazepam, topiramate, clonidine, cogentin, haldol Assessment & Plan (11/16/2023 10:07 AM EST): Do not miss appointment with psychiatrist on 11/24/2023 Take medications prescribed at discharge as prescribe Labs for lithium monitoring ordered today Assessment & Plan (02/22/2023 6:39 AM EDT): Continue current regimen per psych Has crisis number. Denies current SI or thoughts of self harm Hypercholesterolemia 08/21/2015 Overview (02/22/2023): Atorvastatin 80mg daily ASCVD 2.1% 11/26/2022 Assessment & Plan (02/22/2023 6:36 AM EDT): Continue current regimen Assessment & Plan (11/16/2022 3:58 PM EST): Repeat labs today Follow up pending results Migraine 08/21/2015 Resolved Problems Problem Noted Date Diagnosed Date Resolved Date Vaginal discomfort 05/10/2023 4 Overview (05/10/2023): -Likely yeast infection. -Treat with clotrimazole. -BV swab sent. Assessment & Plan (05/10/2023 2:19 PM EDT): -Likely yeast infection. -Treat with clotrimazole. -BV swab sent. Encounters Date Type Department Care Team Description 06/12/2025 2:20 PM EDT Office Visit [facility] [address] [place] [address] [place], [place] Zachary Epigastric pain (Primary Dx) 06/12/2025 Travel 06/06/2025 11:00 AM EDT Office Visit [facility] MEDICINE [address] [place] [address] Teresa Storm FNP Armpit pain, left (Primary Dx) 06/06/2025 Telephone [facility] MEDICINE [address] [place] [address] Charlotte Laureano FNP Call Back Request 06/06/2025 Travel 05/29/2025 Refill [facility] [address] [place] [address] Charlotte Laureano FNP Acute bilateral back pain, unspecified back location 05/08/2025 Refill [facility] [address] [place] [address] Keshav Salvador MD 05/07/2025 Refill [facility] MED & PEDS [address] [place] [address] Charlotte Laureano FNP Class 1 obesity due to excess calories with serious comorbidity and body mass index (BMI) of 33.0 to 33.9 in adult 04/25/2025 Orders Only [facility] MEDICINE [address] [place] [address] Adarsh Javed RN 04/02/2025 9:45 AM EDT Office Visit [facility] OPTOMETRY [address] [place] [address] RoderickSolange meng, OD Presbyopia (Primary Dx) 04/02/2025 Travel from Last 3 Months Immunizations Immunization Administration Dates Next Due Hep A, Adult [...] Sign Reading Time Taken Comments Blood Pressure 126/84 06/12/2025 1:16 PM EDT Pulse 101 06/12/2025 1:16 PM EDT Temperature 36.7 C (98.1 F) 06/12/2025 1:16 PM EDT Respiratory Rate 16 06/12/2025 1:16 PM EDT Oxygen Saturation 97% 06/12/2025 1:16 PM EDT Inhaled Oxygen Concentration - - Weight 68 kg (150 lb) 06/12/2025 1:16 PM EDT Height 160 cm (5' 3 ) 06/06/2025 11:01 AM EDT Body Mass Index 26.57 06/06/2025 11:01 AM EDT Plan of Treatment Upcoming Encounters Date Type Department Care Team (Late st Contact Info) Description 07/09/2025 9:00 AM EDT Office Visit [facility] MEDICINE 230 [place] [address] [place], [place], [facility] 230 [place], [place] [phone] Health Maintenance Due Date Last Done Comments CT Colonography 1965 Dental Prophylaxis 1965 Dental X-Ray: Bitewings 1965 Dental X-Ray: Full Mouth 1965 FIT DNA/Cologuard 1965 FIT 1965 FOBT 1965 Sigmoidoscopy 1965 Disability Screening 1965 Alcohol/Substance Use Screening 1977 Depression Screening 05/15/2025 05/15/2024, 05/15/20 24 Influenza Vaccine (#1) 2025 , 06/29/2023, 07/27/2022, Additional history exists Dental Oral Exam 06/28/2025 12/25/2024, 12/21/2022 Colonoscopy 07/24/2025 07/24/2015 Colorectal Cancer Screening 07/24/2025 SDOH Screening 10/27/2025 10/27/2024 Mammogram 01/26/2026 01/26/2025, 01/09, 01/15/2023, Additional history exists Tobacco Screening 06/12/2026 06/12/2025 Cervical Cancer Screening 02/02/2028 HPV/Cotest 02/02/2028 Pap Smear 02/02/2028 02/01/2023 Lipid Panel 07/08/2028 07/08/2023, 11/11, 03/24/2022, [...] 04/02/2016, 05/15/2015 Zoster Vaccines Completed 02/23/2019, 12/15/2018 COVID-19 Vaccine Completed 09/01/2024, 12/2023, 07/27/2022, Additional history exists Pneumococcal Vaccine: 50+ Years Completed 01/08/2025 HIV Screening Completed 04/20/2025, 11/11, 05/28/2020 Hepatitis C Screening Completed 04/20/2025, 023 HIB Vaccines Aged Out No longer eligi ble based on patient's age to complete this topic HPV Vaccines Aged Out No longer eligi ble based on patient's age to complete this topic IPV Vaccines Aged Out No longer eligi ble based on patient's age to complete this topic Meningococcal B Vaccine Aged Out No l onger eligible based on patient's age to complete [...] Procedure Name Priority Date/Time Associated Diagnosis Comments HIV ANTIBODY/ANTIGEN ([place] [facility]) Routine 04/20/2025 HEPATITIS C ANTIBODY ([place] [facility]) Routine 04/20/2025 SYPHILIS ABS ([place] [facility]) Routine 04/20/2025 BI MAMMOGRAM SCREENING TOMOSYNTHESIS BILATERAL Routine 01/26/2025 9:50 AM EDT PERIODIC ORAL EVALUATION - ESTABLISHED PATIENT Routine 12/25/2024 9:30 AM EDT LIPID PANEL, STANDARD Routine 07/08/2023 1:24 PM EDT Mixed hyperlipidemia HM PAP/HPV Routine 02/01/2023 HM COLONOSCOPY Routine 07/24/2015 8:38 AM EDT from Last 3 Months or Most Recently Relevant to Health Maintenance Results * Syphilis Antibodies (DPH) (04/20/2025) Syphilis Abs Nonreactive Borderline, Nonreactive, Weakly Reactive, Inconclusive, Specimen unsatisfactory for evaluation Blood Venous blood specimen / Unknown 04/20/2025 [facility] Provider MD LAB BLOOD ORDERABLES Marion l Result * Hepatitis C Antibody ([facility]) (04/20/2025) Hepatitis C Ab Nonreactive Blood 04/20/2025 [facility] Provider MD LAB BLOOD ORDERABLES Marion l Result * HIV Ab/Ag ([facility]) (04/20/2025) HIV Ag/Ab Nonreactive Blood 04/20/2025 [facility] Provider MD LAB BLOOD ORDERABLES Marion l Result * BI Mammogram Screening Tomosynthesis Bilateral (01/26/2025 9:50 AM EDT) Anatomical Region Laterality Modality Breast Bilateral Mammography 01/26/2025 9:50 AM EDT Narrative 02/04/2025 8:27 AM EDT [facility] [address] [place] [address] Mammography Report Signed Patient: Itzel Duncan MR#: [id number] 3 : 1965 Acct:[id number] Age/Sex: 59 / F ADM Date: 01/26/25 Loc: HO.MAMMO Attending Dr: Rosemary Germain MD Ordering Physician: Rosemary Germain MD Results: 2Beni gn Findings Date of Service: 01/26/25 Follow Up: 1 Year From Orig inal Mammogram Procedure(s): MM tomosynthesis screening BI Accession Number(s): [id number] cc: Rosemary Germain MD EXAMINATION: MM SCREENING [...] 02/04/25 0825 DD/ 0950 TD/TT: 01/26/25 1016 Emergency Preparedness Manager: Procedure Note Donotuseinterpreter, Image - 02/04/2025 [facility] [address] [place] [address] Mammography Report Signed Patient: Itzel Duncan EMR#: [id number] 3 : 1965Acct:[id number] Age/Sex: 59 / FADM Date: 01/26/25 Loc: HO.MAMMO Attending Dr: Rosemary Germain MD Ordering Physician: Rosemary Germain MDResults: 2Beni gn Findings Date of Service: 01/26/25Follow Up: 1 Year From Orig inal Mammogram Procedure(s): MM tomosynthesis screening BI Accession Number(s): [id number] cc: Rosemary Germain MD EXAMINATION: MM SCREENING [...] 02/04/25 0825 DD/ 0950 TD/TT: 01/26/25 1016 Emergency Preparedness Manager: us Rosemary Germain MD IMG BI PROCEDURES Edited Resu lt - Final * Lipid Panel, Standard (07/08/2023 1:24 PM EDT) Triglycerides 136 <150 mg/dL [facility] Comment:Desirable Triglyceri de: less than 150 mg/dLBorderline High Triglyceride 150-199 mg/dLHigh Triglyceride: 200-499 mg/dLVery High Triglyceride: greater than or equal to 5OO mg/dL Cholesterol 154 <200 mg/dL [facility] Comment:Desirable Cholestero l: less than 200 mg/dLBorderline High Cholesterol: 200-239 mg/dLHigh Cholesterol: greater than 239 mg/dL LDL Cholesterol Calculated 75 <100 mg/dL [facility] Comment:Desirable LDL: less than 100 mg/dLNear Optimal/Above Optimal LDL: 110- 129 mg/dLBorderline High LDL: 130-159 mg/dLHigh LDL: 160-189 mg/dLVery High LDL: greater than or equal to 190 mg/dL HDL Cholesterol 52 >40 mg/dL [facility] Comment:Desirable HDL: great er than 40 mg/dL Note: This HDL assay may give artificially low results in patients with liver disease. Blood Venous blood specimen / Unknown 07/08/2023 1:24 PM EDT 07/08/2023 3:54 PM EDT [facility] RN ENDOSCOPY LAB BLOOD ORDERABLES Final Re sult [facility] [address] [place] [address] [phone] * Pap Smear (02/01/2023) Pap smear PERFORMED Comment:HPV MRNA NOT DETECTE D Historical Provider HEALTH MAINTENANCE Final Result * Colonoscopy (07/24/2015 8:38 AM EDT) Historical Provider HEALTH MAINTENANCE Final Result from Last 3 Months or Most Recently Relevant to Health Maintenance Insurance [facility] C3 DENTAL-[facility] MEDICAID STAND ADULT Care Teams Die Equipment Operator Relationship Specialty Start Date End Date Charlotte Laureano FNP [address] [place] [id number] PCP - General Family Medicine 06/09/22
--- OUTSIDE RECORDS SUMMARY | 2025-06-19 14:10 | XMS_ITS | Encounter Summary ---
Author Organization [employer] Address [address] [place] [address] [address] [place] [address] Care Team Providers Care Retail Client Manager Name Role Phone [facility] Primary Care Provider [phone] Reason for Visit * Reason Onset Date Comments Lab Orders 02/25/2023 Encounter Details Date Type Department Care Team ([facility] st Contact Info) Description 02/25/2023 Telephone [facility] MED[facility]INE [address] [place] [address] [facility] [address] [place] [address] Lab Orders Social History Tobacco Use Types [...] - 03/15/2023 10:27 AM EDT T/C to [phone] through [employer] App , Message states , The number you [...] PM EDT T/C placed to pt via [employer] Ana María #[id number]. Pt states she would like a lab [...] check for diabetes. Please contact pt at [phone] documented in this encounter Plan of Treatment Upcoming Encounters Date Type Department Care Team (Late st Contact Info) Description 07/09/2025 9:00 AM EDT Office Visit [facility] [address] [place] [address] [place] Laureano FNP [address] [place] [address] documented as of this encounter Visit Diagnoses Not on filedocumented in this encounter Additional Health Concerns Assessment Noted Time PHQ-9 Depression Total Score: 0 11/13/19 23 1:38 PM EST documented as of this encounter Care Teams Retail Client Manager Relationship Specialty Start Date End Date Charlotte Laureano FNP [address] [place] [address] PCP - General Family Medicine 06/09/22 documented as of this encounter
--- OUTSIDE RECORDS SUMMARY | 2025-06-19 14:11 | XMS_ITS | Encounter Summary ---
Author Organization [employer] Address [address] [place] [address] 7 [place] [address] Care Team Providers Care Process Safety Manager Name Role Phone [facility] Primary Care Provider [phone] Reason for Visit * Reason Onset Date Comments Lab Orders 11/23/2022 Encounter Details Date Type Department Care Team ([facility] st Contact Info) Description 11/23/[address] [facility] MEDICINE [address] [place] [address] [facility] [address] [place] [address] Lab Orders Social History Tobacco Use Types [...] blood work order Please contact pt at [phone] documented in this encounter Plan of Treatment Upcoming Encounters Date Type Department Care Team (Late st Contact Info) Description 07/09/2025 9:00 AM EDT Office Visit [facility] MED[facility] [address] [place] [address] [place] Laureano FNP [address] [place] [address] documented as of this encounter Visit Diagnoses Not on filedocumented in this encounter Additional Health Concerns Assessment Noted Time PHQ-9 Depression Total Score: 0 11/13/19 23 1:38 PM EST documented as of this encounter Care Teams Process Safety Manager Relationship Specialty Start Date End Date [place] Laureano FNP [address] [place] [address] PCP - General Family Medicine 06/09/22 documented as of this encounter
--- OUTSIDE RECORDS SUMMARY | 2025-06-19 14:11 | XMS_ITS | Encounter Summary ---
Author Organization [employer] Address 75 [facility] 7t [place] [address] Care Team Providers Care Program Manager Rn Name Role Phone Georgi [facility] Primary Care Provider [phone] Encounter Details Date Type Department Care Team ([facility] st Contact Info) Description 05/25/2024 Orders Only [facility] 230 [place], [place] [phone] Noreen Krishnamurthy RN Social History Tobacco Use [...] t he electric, gas, oil or water [employer] threatened to shut off services in your [...] Description 07/09/2025 9:00 AM EDT Office Visit [facility] MEDICINE 230 [place] [address] [place] Laureano FNP 230 [place] [address] documented as of this encounter Visit Diagnoses Not on filedocumented in this encounter Additional Health Concerns Assessment Noted Time PHQ-9 Depression Total Score: 0 05/15/20 24 8:48 AM EDT documented as of this encounter Care Teams Program Manager Rn Relationship Specialty Start Date End Date Charlotte Laureano FNP [address] [place] [address] PCP - General Family Medicine 06/09/22 documented as of this encounter
--- OUTSIDE RECORDS SUMMARY | 2025-06-19 14:11 | XMS_ITS | Encounter Summary ---
Author Organization [employer] Address [address] [place] [address] 7 [place] [address] Care Team Providers Care Outsole Rounder Name Role Phone [facility] Primary Care Provider [phone] Reason for Visit * Reason Onset Date Comments Lab Orders 11/16/2022 Encounter Details Date Type Department Care Team ([facility] st Contact Info) Description 11/16/2022 Telephone [facility] MEDICINE [address] [place] [address] [facility] 230 [place] [address] Lab Orders Social History Tobacco Use Types [...] blood work order Please contact pt at [phone] documented in this encounter Plan of Treatment Upcoming Encounters Date Type Department Care Team (Late st Contact Info) Description 07/09/2025 9:00 AM EDT Office Visit [facility] MEDICINE [address] [place] [address] Charlotte Laureano FNP 230 [place] [address] documented as of this encounter Visit Diagnoses Not on filedocumented in this encounter Additional Health Concerns Assessment Noted Time PHQ-9 Depression Total Score: 0 11/13/19 23 1:38 PM EST documented as of this encounter Care Teams Outsole Rounder Relationship Specialty Start Date End Date Charlotte Laureano FNP 230 [place] [address] PCP - General Family Medicine 06/09/22 documented as of this encounter
--- OUTSIDE RECORDS SUMMARY | 2025-06-19 14:11 | XMS_ITS | Encounter Summary ---
Author Organization [employer] Address [address] [facility] 7 [place] [address] Care Team Providers Care Firer Kiln Name Role Phone [facility] Primary Care Provider [phone] Reason for Visit * Reason Onset Date Comments Referral 12/31/2023 Encounter Details Date Type Department Care Team ([facility] st Contact Info) Description 12/31/2023 Telephone [facility] MEDICINE 230 [place], [place] [phone] [facility] 230 [place] [address] Referral Social History Tobacco Use Types Packs/Day [...] a referral to the vision center at [facility]. A referral had been placed on 05/20/23 to [facility] eyecare for a history of glaucoma. Pt needs a new referral placed. Forwarding to provider * Telephone Encounter - Cami Workman - 12/31/2023 9:47 AM EDT TC from pt requesting new referral to vision center . Location: [facility] Address: [address] [place] [address] documented in this encounter Plan of Treatment Upcoming Encounters Date Type Department Care Team (Late st Contact Info) Description 07/09/2025 9:00 AM EDT Office Visit [facility] MEDICINE 230 [place] [address] Charlotte Laureano FNP [address] [place] [address] documented as of this encounter Visit Diagnoses Not on filedocumented in this encounter Additional Health Concerns Assessment Noted Time PHQ-9 Depression Total Score: 0 12/22/19 24 9:02 AM EDT documented as of this encounter Care Teams Firer Kiln Relationship Specialty Start Date End Date Charlotte Laureano FNP 230 [place] [address] PCP - General Family Medicine 06/09/22 documented as of this encounter
--- OUTSIDE RECORDS SUMMARY | 2025-06-19 14:11 | XMS_ITS | Encounter Summary ---
Author Organization [employer] Address 75 [facility] 7 [place] [address] Care Team Providers Care Computer Recycling Worker Name Role Phone [facility] Primary Care Provider [phone] Reason for Visit * Reason Onset Date Comments Nurse Triage 11/10/2023 Encounter Details Date Type Department Care Team ([facility] st Contact Info) Description 11/10/2023 Telephone [facility] MEDICINE 230 [place], [place] [phone] [facility] 230 [place] [address] Nurse Triage Social History Tobacco Use Types [...] 10:49 AM EST Triage attempted x2 with [employer] Kate Agribusiness Professor ID [id number] . Both call went directly to message [...] accepted this outcome Please contact pt at [phone] ([place]) documented in this encounter Plan of Treatment Upcoming Encounters Date Type Department Care Team (Late st Contact Info) Description 07/09/2025 9:00 AM EDT Office Visit [facility] MEDICINE 230 [place] [address] Charlotte Laureano FNP [address] [place] [address] documented as of this encounter Visit Diagnoses Not on filedocumented in this encounter Additional Health Concerns Assessment Noted Time PHQ-9 Depression Total Score: 0 10/13/19 24 11:29 AM EST documented as of this encounter Care Teams Computer Recycling Worker Relationship Specialty Start Date End Date Charlotte Laureano, DAO 230 [place] [address] PCP - General Family Medicine 06/09/22 documented as of this encounter
--- OUTSIDE RECORDS SUMMARY | 2025-06-19 14:11 | XMS_ITS | Encounter Summary ---
Author Organization [employer] [facility] [employer] Address 75 [facility] 7 [place] [address] Care Team Providers Care Talent Coordinator Name Role Phone [facility] Primary Care Provider [phone] Reason for Visit * Reason Onset Date Comments Referral Letter 02/21/2025 Encounter Details Date Type Department Care Team ([facility] st Contact Info) Description 02/21/2025 Telephone [facility] MEDICINE 230 [place], [place] [phone] [facility] 230 [place] [address] Referral Letter Social History Tobacco Use Types Packs/Day Years [...] encounter Miscellaneous Notes * Telephone Encounter - Isha Mondragon - 02/21/2025 10:38 AM EDT Tc from pt needing referral information to be sent via mail. Referral: Neurology - [address] [place] [address] 4th [address] [facility] [address] Pt states is unable to get (type) information over the phone due to the tremors in her hands. documented in this encounter Plan of Treatment Upcoming Encounters Date Type Department Care Team (Late st Contact Info) Description 07/09/2025 9:00 AM EDT Office Visit [facility] MEDICINE 230 [place] [address] Charlotte Laureano FNP [address] [place] [address] documented as of this encounter Visit Diagnoses Not on filedocumented in this encounter Additional Health Concerns Assessment Noted Time PHQ-9 Depression Total Score: 0 05/15/20 24 8:48 AM EDT documented as of this encounter Care Teams Talent Coordinator Relationship Specialty Start Date End Date Charlotte Laureano FNP 230 [place] [address] PCP - General Family Medicine 06/09/22 documented as of this encounter
--- OUTSIDE RECORDS SUMMARY | 2025-06-19 14:11 | XMS_ITS | Encounter Summary ---
Author Organization [employer] Address 75 [facility] 7t [place] [address] Care Team Providers Care Brand Activation Manager Name Role Phone [facility] Primary Care Provider [phone] Encounter Details Date Type Department Care Team ([facility] st Contact Info) Description 01/19/[address] [facility] MEDICINE [address] [place] [address] ProviderNidia MD Social History Tobacco Use Types [...] 07/09/2025 9:00 AM EDT Office Visit [facility] MEDICINE [address] [place] [address] Charlotte Laureano FNP 230 [place] [address] documented as of this encounter Procedures Procedure [...] documented as of this encounter Care Teams Brand Activation Manager Relationship Specialty Start Date End Date Charlotte Laureano FNP [address] [place] [address] PCP - General Family Medicine 06/09/22 documented as of this encounter
--- OUTSIDE RECORDS SUMMARY | 2025-06-19 14:11 | XMS_ITS | Encounter Summary ---
Author Organization [employer] Address 75 [facility] 7 [place] [address] Care Team Providers Care Box Order Person Name Role Phone [facility] Primary Care Provider [phone] Reason for Visit * Reason Onset Date Comments call back 11/26/2022 Encounter Details Date Type Department Care Team ([facility] Contact Info) Description 11/26/2022 Telephone [facility] MEDICINE 230 [place] [address] [facility] 230 [place] [address] call back Social History Tobacco Use Types [...] AM EST TC returned to pt at [phone], utilizing [employer] Engraver Automatic ID:[id number], regarding message belowper [facility]. Pt informed labs show high [...] she can obtain copy of labs at [facility] Medical Records in basement. Pt verbalized understanding. Pt to F/U as needed. ----- Message from [facility] sent at 11/26/2022 8:44 AM EST [...] Description 07/09/2025 9:00 AM EDT Office Visit [facility] MEDICINE 230 [place] [address] [facility] [address] [place] [address] documented as of this encounter Visit Diagnoses Not on filedocumented in this encounter Additional Health Concerns Assessment Noted Time PHQ-9 Depression Total Score: 0 11/13/19 23 1:38 PM EST documented as of this encounter Care Teams Box Order Person Relationship Specialty Start Date End Date Charlotte Laureano [facility] 230 [place] [address] PCP - General Family Medicine 06/09/22 documented as of this encounter
--- OUTSIDE RECORDS SUMMARY | 2025-06-19 14:11 | XMS_ITS | Encounter Summary ---
Author Organization [employer] Address 75 [facility] 7 [place] [address] Care Team Providers Care Supervisor Cell Efficiency Name Role Phone [facility] Primary Care Provider [phone] Reason for Visit * Reason Onset Date Comments Hospital Follow-up 11/04/2023 Encounter Details Date Type Department Care Team ([facility] st Contact Info) Description 11/04/2023 Telephone [facility] MEDICINE 230 [place], [place] [phone] [facility] 230 [place], [place] [phone] Hospital Follow-up Social History Tobacco Use Types [...] 8:42 AM EST Tc from Radha at [facility] requesting a HDF follow up appt for the patient. Tc from pt requesting a HDF appt. [facility] [facility] Date of admission: 10/28 Discharge date: 11/04 Diagnosed: schizophrenia Disorder Please Call [facility] at [phone] documented in this encounter Plan of Treatment Upcoming Encounters Date Type Department Care Team (Late st Contact Info) Description 07/09/2025 9:00 AM EDT Office Visit [facility] MEDICINE [address] [place] [address] Charlotte Laureano FNP 230 [place] [address] documented as of this encounter Visit Diagnoses Not on filedocumented in this encounter Additional Health Concerns Assessment Noted Time PHQ-9 Depression Total Score: 0 10/13/19 24 11:29 AM EST documented as of this encounter Care Teams Supervisor Cell Efficiency Relationship Specialty Start Date End Date Charlotte Laureano FNP 230 [place] [address] PCP - General Family Medicine 06/09/22 documented as of this encounter
--- OUTSIDE RECORDS SUMMARY | 2025-06-19 14:11 | XMS_ITS | Encounter Summary ---
Author Organization [employer] Address [address] [place] [address] Care Team Providers Care Mine Superintendent Name Role Phone [facility] Primary Care Provider [phone] Reason for Visit * Reason Onset Date Comments Lab Orders 12/07/2022 Encounter Details Date Type Department Care Team ([facility] Contact Info) Description 12/07/[address] [phone] Lab Orders Social History Tobacco Use Types [...] Date Type Department Care Team ([facility] Contact Info) Description 07/09/2025 9:00 AM EDT Office Visit [address] [address] documented as of this encounter Visit Diagnoses Not on filedocumented in this encounter Additional Health Concerns Assessment Noted Time PHQ-9 Depression Total Score: 0 11/13/19 23 1:38 PM EST documented as of this encounter Care Teams Mine Superintendent Relationship Specialty Start Date End Date Charlotte Laureano FNP 230 [place] [address] PCP - General Family Medicine 06/09/22 documented as of this encounter
--- OUTSIDE RECORDS SUMMARY | 2025-06-19 14:11 | XMS_ITS | Encounter Summary ---
Author Organization [employer] Address 75 [facility] 7t [place] [address] Care Team Providers Care Safety Companion Name Role Phone [facility] Primary Care Provider [phone] Encounter Details Date Type Department Care Team ([facility] st Contact Info) Description 01/25/2024 Telephone [facility] MEDICINE 230 [place], [place] [phone] [place] [facility] 230 [place] [address] Social History Tobacco Use Types Packs/Day Years [...] Description 07/09/2025 9:00 AM EDT Office Visit [facility] MEDICINE 230 [place] [address] Charlotte Laureano FNP 230 [place] [address] documented as of this encounter Visit Diagnoses Not on filedocumented in this encounter Additional Health Concerns Assessment Noted Time PHQ-9 Depression Total Score: 0 12/22/19 24 9:02 AM EDT documented as of this encounter Care Teams Safety Companion Relationship Specialty Start Date End Date Charlotte Laureano FNP 230 [place] [address] PCP - General Family Medicine 06/09/22 documented as of this encounter
--- OUTSIDE RECORDS SUMMARY | 2025-06-19 14:11 | XMS_ITS | Encounter Summary ---
Author Organization [employer] Address 75 [facility] 7 [place] [address] Care Team Providers Care Fire Protection Equipment Technician Name Role Phone [facility] Primary Care Provider [phone] Reason for Visit * Reason Onset Date Comments Med Refill 03/31/2024 Encounter Details Date Type Department Care Team ([facility] Contact Info) Description 03/31/2024 Telephone [facility] MEDICINE 230 [place], [place] [phone] [facility] 230 [place] [address] Med Refill Social History Tobacco Use Types [...] 9:40 AM EDT Script was sent to [facility] on 02/07/24 90 day supply with 2 refills. * Telephone Encounter - Stefania Cardenas - 03/31/2024 9:25 AM EDT TC from pt requesting medication refill. Medications needing refill : metFORMIN XR (Glucophage-XR) 500 MG 24 hr tablet To be sent to: [facility] - [place], [place] - [address] [place] [address] documented in this encounter Plan of Treatment Upcoming Encounters Date Type Department Care Team (Late st Contact Info) Description 07/09/2025 9:00 AM EDT Office Visit [facility] MEDICINE 230 [place] [address] Charlotte Laureano FNP [address] [place] [address] documented as of this encounter Visit Diagnoses Not on filedocumented in this encounter Additional Health Concerns Assessment Noted Time PHQ-9 Depression Total Score: 0 12/22/19 9:02 AM EDT documented as of this encounter Care Teams Fire Protection Equipment Technician Relationship Specialty Start Date End Date [place] DAO Porter 230 [place] [address] PCP - General Family Medicine 06/09/22 documented as of this encounter
--- OUTSIDE RECORDS SUMMARY | 2025-06-19 14:11 | XMS_ITS | Encounter Summary ---
Author Organization [employer] Address 75 [facility] 7 [place] [address] Care Team Providers Care Dials Supervisor Name Role Phone [facility] Primary Care Provider [phone] Reason for Visit * Reason Onset Date Comments Nurse Triage 11/09/2023 Encounter Details Date Type Department Care Team ([facility] st Contact Info) Description 11/09/2023 Telephone [facility] MEDICINE 230 [place], [place] [phone] [facility] 230 [place] [address] Nurse Triage Social History Tobacco Use Types [...] 9:00 AM EDT Office Visit [facility] MEDICINE 230 [place] [address] Charlotte Laureano FNP [address] [place] [address] documented as of this encounter Visit Diagnoses Not on filedocumented in this encounter Additional Health Concerns Assessment Noted Time PHQ-9 Depression Total Score: 0 10/13/19 24 11:29 AM EST documented as of this encounter Care Teams Dials Supervisor Relationship Specialty Start Date End Date Charlotte Laureano FNP 230 [place] [address] PCP - General Family Medicine 06/09/22 documented as of this encounter
--- OUTSIDE RECORDS SUMMARY | 2025-06-19 14:11 | XMS_ITS | Encounter Summary ---
Author Organization [employer] Address 75 [facility] 7 [place] [address] Care Team Providers Care Solution Consultant Name Role Phone [facility] Primary Care Provider Reason for Visit * Reason Onset Date Comments Results 11/17/2023 Encounter Details Date Type Department Care Team ([facility] st Contact Info) Description 11/17/2023 Telephone [facility] MEDICINE 230 [place], [place] [phone] [facility] 230 [place] [address] Results Social History Tobacco Use Types Packs/Day [...] a PAP smear. Please contact pt at [phone] * Telephone Encounter - Dony Hanson - [...] Description 07/09/2025 9:00 AM EDT Office Visit [facility] MEDICINE 230 [place], [place] [phone] [facility] 230 [place], [place] [phone] documented as of this encounter Visit Diagnoses Not on filedocumented in this encounter Additional Health Concerns Assessment Noted Time PHQ-9 Depression Total Score: 0 10/13/19 24 11:29 AM EST documented as of this encounter Care Teams Solution Consultant Relationship Specialty Start Date End Date Charlotte Laureano FNP 230 [place] [address] PCP - General Family Medicine 06/09/22 documented as of this encounter
--- OUTSIDE RECORDS SUMMARY | 2025-06-19 14:11 | XMS_ITS | Encounter Summary ---
Author Organization [employer] Address 75 [facility] 7t [place] [address] Care Team Providers Care Fabrication Operator Name Role Phone [facility] Primary Care Provider [phone] Encounter Details Date Type Department Care Team ([facility] st Contact Info) Description 07/27/2024 Telephone [facility] MEDICINE 230 [place], [place] [phone] [facility] [address] [place] [address] Social History Tobacco Use Types Packs/Day Years [...] Description 07/09/2025 9:00 AM EDT Office Visit [facility] MEDICINE 230 [place] [address] Charlotte Laureano FNP [address] [place] [address] documented as of this encounter Visit Diagnoses Not on filedocumented in this encounter Additional Health Concerns Assessment Noted Time PHQ-9 Depression Total Score: 0 05/15/20 24 8:48 AM EDT documented as of this encounter Care Teams Fabrication Operator Relationship Specialty Start Date End Date Charlotte Laureano FNP 230 [place] [address] PCP - General Family Medicine 06/09/22 documented as of this encounter
--- OUTSIDE RECORDS SUMMARY | 2025-06-19 14:11 | XMS_ITS | Encounter Summary ---
Author Organization [employer] Address 75 [facility] 7 [place] [address] Care Team Providers Care Assembler Engine Name Role Phone [facility] Primary Care Provider [phone] Reason for Visit * Reason Onset Date Comments Results 10/14/2023 Encounter Details Date Type Department Care Team ([facility] st Contact Info) Description 10/14/2023 Telephone [facility] MEDICINE 230 [place], [place] [phone] [facility] 230 [place] [address] Results Social History Tobacco Use Types Packs/Day [...] regards to results. Please contact pt at [phone] * Telephone Encounter - Maria De Jesus Shultz - 10/15/2023 9:06 AM EST Tc from pt calling in regards to results. Please contact pt at [phone] * Telephone Encounter - Maria De Jesus Shultz - 10/14/2023 2:43 PM EST TC from pt requesting call back regarding Results. Type of results: labs Date when done: 10/13 Facility: [facility] documented in this encounter Plan of Treatment Upcoming Encounters Date Type Department Care Team (Late st Contact Info) Description 07/09/2025 9:00 AM EDT Office Visit [facility] MEDICINE 230 [place] [address] [place] [facility] 230 [place] [address] documented as of this encounter Visit Diagnoses Not on filedocumented in this encounter Additional Health Concerns Assessment Noted Time PHQ-9 Depression Total Score: 0 10/13/19 24 11:29 AM EST documented as of this encounter Care Teams Assembler Engine Relationship Specialty Start Date End Date Charlotte Laureano FNP [address] [place] [address] PCP - General Family Medicine 06/09/22 documented as of this encounter
--- OUTSIDE RECORDS SUMMARY | 2025-06-19 14:11 | XMS_ITS | Encounter Summary ---
Author Organization [employer] Address [address] [place] [address] 7 [place] [address] Care Team Providers Care Field Servicer Name Role Phone [facility] Primary Care Provider [phone] Reason for Visit * Reason Onset Date Comments Results 07/12/2023 Encounter Details Date Type Department Care Team ([facility] st Contact Info) Description 07/12/2023 Telephone [facility] MEDICINE 230 [place] [address] [facility] 230 [place] [address] Results Social History Tobacco Use Types Packs/Day [...] 11:46 AM EDT T/C to pt. Through Studentgems id - [id number] for below message, pt. Was informed regarding normal lipids labs. Pt. Verbally agreed and understood. * Telephone Encounter - Stefania Cardenas - 07/13/2023 4:17 PM EDT Pt calling again requesting a call in regards to results of 07/08 labs. Please contact pt at [phone] (Indonesian) * Telephone Encounter - Maria De Jesus Shultz - 07/12/2023 9:14 AM EDT Tc from pt requesting a call in regards to results of 07/08 labs. Please contact pt at [phone] (Indonesian) documented in this encounter Plan of Treatment Upcoming Encounters Date Type Department Care Team (Late st Contact Info) Description 07/09/2025 9:00 AM EDT Office Visit [facility] MEDICINE 230 [place] [address] Charlotte Laureano FNP 230 [place] [address] documented as of this encounter Visit Diagnoses Not on filedocumented in this encounter Additional Health Concerns Assessment Noted Time PHQ-9 Depression Total Score: 0 04/27/20 23 9:47 AM EDT documented as of this encounter Care Teams Field Servicer Relationship Specialty Start Date End Date Charlotte Laureano FNP 230 [place] [address] PCP - General Family Medicine 06/09/22 documented as of this encounter
--- OUTSIDE RECORDS SUMMARY | 2025-06-19 14:11 | XMS_ITS | Encounter Summary ---
Author Organization [employer] Address 75 [facility] [address] [place] [address] Care Team Providers Care Recruiting Operations Consultant Name Role Phone [facility] Primary Care Provider [phone] Reason for Visit * Reason Onset Date Comments Med Refill 03/20/2024 Encounter Details Date Type Department Care Team ([facility] st Contact Info) Description 03/20/2024 Telephone [facility] [address] [place], [place] [phone] [facility] [address] [place] [address] Med Refill Social History Tobacco Use Types [...] 9:31 AM EDT Medication was sent to [facility] on 02/07/24 #180 with 2 refills. * Telephone Encounter - Stefania Cardenas - 03/20/2024 9:23 AM EDT TC from pt requesting medication refill. Medications needing refill : metFORMIN XR (Glucophage-XR) 500 MG 24 hr tablet To be sent to: [facility] - [place], [place] - [address] [place] [address] documented in this encounter Plan of Treatment Upcoming Encounters Date Type Department Care Team (Late st Contact Info) Description 07/09/2025 9:00 AM EDT Office Visit [facility] [address] [place] [address] Charlotte Lauerano FNP [address] [place] [address] documented as of this encounter Visit Diagnoses Not on filedocumented in this encounter Additional Health Concerns Assessment Noted Time PHQ-9 Depression Total Score: 0 12/22/19 24 9:02 AM EDT documented as of this encounter Care Teams Recruiting Operations Consultant Relationship Specialty Start Date End Date Georgi DAO Porter [address] [place] [address] PCP - General Family Medicine 06/09/22 documented as of this encounter
== END 2025-06-19 12:01 | disposition home or self-care (01) ==
LOC: HO.HSM 11:39
PROVIDERS: PCP Family Medicine; Referring Provider Family Medicine; Visit Provider Psychiatry & Neurology Neurology
DX: G24.01 Drug induced subacute dyskinesia (principal)
CPT/HCPCS: 99214

== ENCOUNTER → 2025-06-19 11:38 | Outpatient (BNVA) | payer MEDICAID, SELFPAY | PROVIDERS: PCP Family Medicine; Referring Provider Family Medicine; Visit Provider Psychiatry & Neurology Neurology | DX: G24.01 Drug induced subacute dyskinesia (principal); F20.0 Paranoid schizophrenia | CPT/HCPCS: 99212 ==

== ENCOUNTER 2025-06-21 11:24 | Emergency (ER) | payer MEDICAID, SELFPAY ==
[2025-06-21 11:42] VITALS: BP 110/65; PULSE 96; RESP 16; TEMP 36.2; O2SAT 96; BMI 23.2
--- NOTE | 2025-06-21 11:47 | ECG_ITS ---
Test Reason : CP Blood Pressure : */* mmHG Vent. Rate : 97 BPM Atrial Rate : 97 BPM P-R Int : 150 ms QRS Dur : 74 ms QT Int : 332 ms P-R-T Axes : 54 20 45 degrees QTcB Int : 421 ms Normal sinus rhythm Normal ECG When compared with ECG of 09-Feb-2025 14:10, No significant change was found Referred By: Ruby Champion Electronically Signed By: FADI CLINTON MD
--- NOTE | 2025-06-21 11:47 | ED.GENADULT ---
HPI - General Adult General Chief complaint: Abdominal Pain Stated complaint: abd pain Related Data Home Medications ?Medication ?Instructions ?Recorded ?Confirmed doxepin 25 mg capsule 25 - 50 mg PO BEDTIME 04/28/24 01/01/25 nortriptyline 25 mg capsule 25 mg PO BEDTIME 07/26/24 01/01/25 haloperidol 5 mg tablet 5 mg PO QAM 01/16/25 haloperidol 10 mg tablet 10 mg PO BEDTIME 02/13/25 Previous Rx's ?Medication ?Instructions ?Recorded atorvastatin 80 mg tablet 1 tab PO BEDTIME 30 days #30 tabs 11/04/23 cholecalciferol (vitamin D3) 50 1 cap PO DAILY 30 days #30 caps 11/04/23 mcg (2,000 unit) capsule clonazepam 1 mg tablet 1 tab PO BEDTIME PRN anxiety 30 11/04/23 days #30 tabs lithium carbonate 450 mg 450 mg PO BID 30 days #60 tabs 11/04/23 tablet,extended release metformin 500 mg tablet,extended 500 mg PO QPM 30 days #30 tabs 11/04/23 release 24 hr multivitamin 1 tab PO DAILY 30 days #30 tabs 11/04/23 pyridoxine (vitamin B6) 100 mg 100 mg PO DAILY 90 days #90 tabs 11/04/23 tablet docusate sodium 100 mg capsule 100 mg PO BEDTIME #90 caps 04/28/24 bisacodyl 5 mg tablet,delayed 10 mg (2 x 5 mg) PO BEDTIME #180 07/26/24 release (Dulcolax (bisacodyl)) tabs benztropine 0.5 mg tablet 0.5 mg PO BID #180 tabs 06/19/25 Allergies Allergy/AdvReac Type Severity Reaction Status Date / Time No Known Allergies Allergy Verified 06/21/25 11:44 [facility] Past Medical History Medical History (Updated 06/22/25 @ 11:57 by KARO Ann) Schizophrenia, paranoid type Paranoid delusion Renal cyst Anxiety Elevated cholesterol Occasional tremors Surgical History Hx of colonoscopy Hx of section Hx of tubal ligation Social History Social History Household Members: None Housing: Apartment Do you presently have visiting nurse or other home services: No Alcohol intake: never Patient Tobacco Use Status: Never used Tobacco Tobacco use type: Cigarette e-Cigarette/Vaping Use: Former Use Second Hand Smoke Exposure: No Substance Use Type: Caffiene Advance Directives: No Advance Directives Information Provided: No service: No Sexual orientation: Straight/Heterosexual Physical Exam ED Vital Signs: Vital Signs - 24 hr 06/21/25 11:42 Temperature 97.2 F Pulse Rate 96 Respiratory Rate 16 Blood Pressure 110/65 Pulse Oximetry 96 Oxygen Delivery Method Room Air BMI result Body Mass Index 23.2 Course Course Course Narrative: This is a Rapid Medical Examination (RME) performed by Blanca Champion PA-C in triage. Full HPI, ROS, assessment and treatment plan per primary provider in the Main ED. Hx: 60 yo F hx of abdominal pain, N/V/D. no urinary sx. also endorsing intermittent chest pain and headaches. no SOB. Plan: labs, ekg Reevaluation(s) Reevaluation #1: Patient left the emergency department before myself or any of the other clinicians could review or explain physical exam findings, test results, need or lack there of for additional testing, treatment options, or a treatment plan. Medical Decision Making Lab Data 06/21/25 12:01 06/21/25 12:01 Labs: Lab Results 06/21/25 Range/Units 12:01 WBC 7.6 (4.8-10.8) X10*3/uL RBC 4.62 (4.20-5.50) X10*6/uL Hgb 13.6 (12.0-16.0) g/dl Hct 40.0 (37.0-47.0) % MCV 86.6 (80.0-98.0) fL MCH 29.4 (27.0-33.0) pg MCHC 34.0 (31.0-35.0) g/dl RDW 13.1 (11.0-16.0) % Plt Count 247 (160-400) X10*3/uL MPV 9.8 (9.4-12.3) fL Immature Gran % (Auto) 0.1 (0.0-0.4) % Neut % (Auto) 64.0 (45-73) % Lymph % (Auto) 26.4 (20-40) % Valencia % (Auto) 8.2 (2-11) % Eos % (Auto) 0.9 (0-4) % Baso % (Auto) 0.4 (0-2) % Lymph # (Auto) 2.0 (1.2-4.9) X10*3/uL Valencia # (Auto) 0.6 (0.1-1.2) X10*3/uL Eos # (Auto) 0.1 (0.0-0.4) X10*3/uL Baso # (Auto) 0.0 (0.0-0.2) X10*3/uL Abs Immat Gran (auto) 0.01 (0.00-0.03) X10*3/uL Absolute Neuts (auto) 4.9 (2.0-8.3) x10*3/uL Absolute Nucleated RBC 0.000 (0.0-0.012) X10*3/uL Nucleated RBC % (auto) 0.0 (0.0-0.2) /100WBC Sodium 140 (135-145) mmol/L Potassium 5.1 D (3.3-5.1) mmol/L Chloride 103 (96-108) mmol/L Carbon Dioxide 30 H (22-29) mmol/L Anion Gap 12 (12-20) BUN 9 (9-16) mg/dL Creatinine 0.79 (0.5-1.4) mg/dL Estim Creat Clear Calc 65.4 Estimated GFR > 60 Random Glucose 109 (60-115) mg/dL Calcium 9.7 (8.4-10.2) mg/dL Magnesium 2.1 (1.6-2.6) mg/dL Total Bilirubin 0.4 (0.0-1.0) mg/dL AST 37 H (5-31) U/L ALT 26 (0-31) U/L Alkaline Phosphatase 88 (39-117) U/L Troponin I High Sens < 2.7 (<3.5-17.0) ng/L Total Protein 7.1 (6.5-8.0) g/dL Albumin 4.6 (3.5-5.0) g/dL Lipase 32 (8-78) U/L Discharge Plan Discharge Clinical Impression: Abdominal pain Patient Disposition: Left W/O Completing Treatment Prescriptions: No Action lithium carbonate 450 mg Tablet Extended Release 450 mg PO BID 30 Days Qty: 60 0RF multivitamin Tablet 1 tab PO DAILY 30 Days Qty: 30 0RF atorvastatin 80 mg tablet 1 tab PO BEDTIME 30 Days Qty: 30 0RF clonazepam 1 mg tablet 1 tab PO BEDTIME PRN (Reason: anxiety) 30 Days Qty: 30 0RF pyridoxine (vitamin B6) 100 mg tablet 100 mg PO DAILY 90 Days Qty: 90 3RF metformin 500 mg tablet extended release 24 hr 500 mg PO QPM 30 Days Qty: 30 0RF cholecalciferol (vitamin D3) 50 mcg (2,000 unit) capsule 1 cap PO DAILY 30 Days Qty: 30 0RF doxepin 25 mg capsule 25 - 50 mg PO BEDTIME docusate sodium 100 mg capsule 100 mg PO BEDTIME Qty: 90 3RF nortriptyline 25 mg capsule 25 mg PO BEDTIME bisacodyl [Dulcolax (bisacodyl)] 5 mg tablet,delayed release (DR/EC) 10 mg PO BEDTIME Qty: 180 4RF haloperidol 5 mg tablet 5 mg PO QAM haloperidol 10 mg tablet 10 mg PO BEDTIME benztropine 0.5 mg tablet 0.5 mg PO BID Qty: 180 1RF Discharge Date/Time: 06/21/25 20:47
[2025-06-21 12:06] LABS: MANUAL DIFF FLAG NO
[2025-06-21 12:07] LABS: Hematocrit 40.0 % (37.0-47.0); Hemoglobin 13.6 g/dl (12.0-16.0); Imm Gran Abs Auto 0.01 X10*3/uL (0.00-0.03); Imm Gran Pct Auto 0.1 % (0.0-0.4); Lymphocytes Absolute Auto 2.0 X10*3/uL (1.2-4.9); Mean Corpuscular HGB Conc 34.0 g/dl (31.0-35.0); Mean Corpuscular Hemoglobin 29.4 pg (27.0-33.0); Mean Corpuscular Volume 86.6 fL (80.0-98.0); NRBC Abs Auto 0.000 X10*3/uL (0.0-0.012); NRBC Pct Auto 0.0 /100WBC (0.0-0.2); Platelet Count 247 X10*3/uL (160-400); Red Blood Count 4.62 X10*6/uL (4.20-5.50); White Blood Count 7.6 X10*3/uL (4.8-10.8)
[2025-06-21 12:31] LABS: Alanine Aminotransferase 26 U/L (0-31); Albumin Level 4.6 g/dL (3.5-5.0); Alkaline Phosphatase 88 U/L (39-117); Anion Gap 12 (12-20); Aspartate Amino Transferase 37 U/L (5-31); Blood Urea Nitrogen 9 mg/dL (9-16); Calcium 9.7 mg/dL (8.4-10.2); Carbon Dioxide 30 mmol/L (22-29); Chloride 103 mmol/L (96-108); Creatinine Clr Calc Pharmacy 65.4; Estimated Glomerular Filt Rate > 60; Lipase 32 U/L (8-78); Magnesium 2.1 mg/dL (1.6-2.6); Potassium 5.1 mmol/L (3.3-5.1); Sodium 140 mmol/L (135-145); Total Protein 7.1 g/dL (6.5-8.0)
[2025-06-21 12:43] LABS: Troponin-I High Sensitivity < 2.7 ng/L (<3.5-17.0)
--- OUTSIDE RECORDS SUMMARY | 2025-06-21 20:45 | XMS_ITS | Encounter Summary ---
Author Organization [employer] Address [address] [place] [address] [address], [place] [address] Care Team Providers Care Hose Stripper Name Role Phone [facility] Primary Care Provider [phone] Encounter Details Date Type Department Care Team ([facility] Contact Info) Description 01/22/2023 Telephone [facility] [address] [place] [address] [phone] Social History Tobacco Use Types Packs/Day Years [...] 9:00 AM EDT Office Visit [facility] [address] [place] [phone] [phone] documented as of this encounter Visit Diagnoses Not on filedocumented in this encounter Additional Health Concerns Assessment Noted Time PHQ-9 Depression Total Score: 0 11/13/19 23 1:38 PM EST documented as of this encounter Care Teams Hose Stripper Relationship Specialty Start Date End Date Georgi DAO Porter [address] [place] [address] PCP - General Family Medicine 06/09/22 documented as of this encounter
--- OUTSIDE RECORDS SUMMARY | 2025-06-21 20:45 | XMS_ITS | Encounter Summary ---
Author Organization [employer] Address [address] [place] [address] 7 [place] [address] Care Team Providers Care Stitch Separator Name Role Phone [facility] Primary Care Provider [phone] Reason for Visit * Reason Onset Date Comments Lab Orders 02/25/2023 Encounter Details Date Type Department Care Team ([facility] st Contact Info) Description 02/25/2023 Telephone [facility] MED[facility]INE [address] [place] [address] [facility] [address] [place] [address] Lab Orders Social History Tobacco Use Types [...] - 03/15/2023 10:27 AM EDT T/C to [phone] through [employer] , Message states , The number you [...] PM EDT T/C placed to pt via [employer] Ana María #[id number]. Pt states she would like a lab [...] check for diabetes. Please contact pt at [phone] documented in this encounter Plan of Treatment Upcoming Encounters Date Type Department Care Team (Late st Contact Info) Description 07/09/2025 9:00 AM EDT Office Visit [facility] [address] [place] [address] Charlotte Laureano FNP [address] [place] [address] documented as of this encounter Visit Diagnoses Not on filedocumented in this encounter Additional Health Concerns Assessment Noted Time PHQ-9 Depression Total Score: 0 11/13/19 23 1:38 PM EST documented as of this encounter Care Teams Stitch Separator Relationship Specialty Start Date End Date Charlotte Laureano FNP [address] [place] [address] PCP - General Family Medicine 06/09/22 documented as of this encounter
--- OUTSIDE RECORDS SUMMARY | 2025-06-21 20:46 | XMS_ITS | Encounter Summary ---
Author Organization [employer] Address 75 [facility] 7t [place] [address] Care Team Providers Care Development Executive Name Role Phone [facility] Primary Care Provider [phone] Encounter Details Date Type Department Care Team ([facility] st Contact Info) Description 07/27/2024 Telephone [facility]INE [address] [place], [place] [phone] [facility] [address] [place] [address] Social History Tobacco Use Types Packs/Day Years [...] Description 07/09/2025 9:00 AM EDT Office Visit [facility] [address] [place] [address] Charlotte Laureano FNP [address] [place] [address] documented as of this encounter Visit Diagnoses Not on filedocumented in this encounter Additional Health Concerns Assessment Noted Time PHQ-9 Depression Total Score: 0 05/15/20 24 8:48 AM EDT documented as of this encounter Care Teams Development Executive Relationship Specialty Start Date End Date Charlotte Laureano FNP [address] [place] [address] PCP - General Family Medicine 06/09/22 documented as of this encounter
--- OUTSIDE RECORDS SUMMARY | 2025-06-21 20:46 | XMS_ITS | Encounter Summary ---
Author Organization [employer] Address [address] [place] [address] Care Team Providers Care Agent Ticketing Gate Name Role Phone [facility] Primary Care Provider [phone] Reason for Visit * Reason Onset Date Comments Lab Orders 12/07/2022 Encounter Details Date Type Department Care Team ([facility] Contact Info) Description 12/07/[address] [phone] Lab Orders Social History Tobacco Use Types [...] Upcoming Encounters Date Type Department Care Team ([facility] Contact Info) Description 07/09/2025 9:00 AM EDT Office Visit [address] [address] documented as of this encounter Visit Diagnoses Not on filedocumented in this encounter Additional Health Concerns Assessment Noted Time PHQ-9 Depression Total Score: 0 11/13/19 23 1:38 PM EST documented as of this encounter Care Teams Agent Ticketing Gate Relationship Specialty Start Date End Date Charlotte Laureano FNP [address] [place] [address] PCP - General Family Medicine 06/09/22 documented as of this encounter
--- OUTSIDE RECORDS SUMMARY | 2025-06-21 20:46 | XMS_ITS | Encounter Summary ---
Author Organization [employer] Address 75 [facility] 7t [place] [address] Care Team Providers Care Housing Specialist Name Role Phone [facility] Primary Care Provider [phone] Encounter Details Date Type Department Care Team ([facility] st Contact Info) Description 01/19/2024 Orders Only [facility] MEDICINE [address] [place] [address] ProviderNidia MD Social History Tobacco Use Types [...] Description 07/09/2025 9:00 AM EDT Office Visit [facility] [address] [place] [address] Charlotte Laureano FNP [address] [place] [address] documented as of this encounter Procedures Procedure [...] documented as of this encounter Care Teams Housing Specialist Relationship Specialty Start Date End Date Charlotte Laureano FNP [address] [place] [address] PCP - General Family Medicine 06/09/22 documented as of this encounter
--- OUTSIDE RECORDS SUMMARY | 2025-06-21 20:46 | XMS_ITS | Encounter Summary ---
Author Organization [employer] Address [address] [place] [address] 7 [place] [address] Care Team Providers Care Maintenance Scheduler Name Role Phone [facility] Primary Care Provider [phone] Reason for Visit * Reason Onset Date Comments Lab Orders 11/16/2022 Encounter Details Date Type Department Care Team ([facility] st Contact Info) Description 11/16/2022 Telephone [facility]INE [address] [place] [address] [facility] [address] [place] [address] Lab Orders Social History Tobacco Use Types [...] blood work order Please contact pt at [phone] documented in this encounter Plan of Treatment Upcoming Encounters Date Type Department Care Team (Late st Contact Info) Description 07/09/2025 9:00 AM EDT Office Visit [facility] [address] [place] [address] Charlotte Laureano FNP [address] [place] [address] documented as of this encounter Visit Diagnoses Not on filedocumented in this encounter Additional Health Concerns Assessment Noted Time PHQ-9 Depression Total Score: 0 11/13/19 23 1:38 PM EST documented as of this encounter Care Teams Maintenance Scheduler Relationship Specialty Start Date End Date Charlotte Laureano FNP [address] [place] [address] PCP - General Family Medicine 06/09/22 documented as of this encounter
--- OUTSIDE RECORDS SUMMARY | 2025-06-21 20:46 | XMS_ITS | Encounter Summary ---
Author Organization [employer] Address 75 [facility] 7 [place] [address] Care Team Providers Care Federal Appellate Law Clerk Name Role Phone [facility] Primary Care Provider [phone] Reason for Visit * Reason Onset Date Comments call back 11/26/2022 Encounter Details Date Type Department Care Team ([facility] st Contact Info) Description 11/26/2022 Telephone [facility]INE [address] [place] [address] [facility] [address] [place] [address] call back Social History Tobacco Use Types [...] AM EST TC returned to pt at [phone], utilizing [employer] Balance Engineer ID:[id number], regarding message belowper [facility]. Pt informed labs show high cholesterol and [...] she can obtain copy of labs at [facility] Medical Records in basement. Pt verbalized understanding. Pt to F/U as needed. ----- Message from Psychiatric sent at 11/26/2022 8:44 AM EST ----- [...] Visit [facility]INE [address] [place] [address] [facility] [address] [place] [address] documented as of this encounter Visit Diagnoses Not on filedocumented in this encounter Additional Health Concerns Assessment Noted Time PHQ-9 Depression Total Score: 0 11/13/19 23 1:38 PM EST documented as of this encounter Care Teams Federal Appellate Law Clerk Relationship Specialty Start Date End Date Charlotte Laureano [facility] [address] [place] [address] PCP - General Family Medicine 06/09/22 documented as of this encounter
--- OUTSIDE RECORDS SUMMARY | 2025-06-21 20:46 | XMS_ITS | Encounter Summary ---
Author Organization [employer] Address 75 [facility] 7 [place] [address] Care Team Providers Care Plumbing Manager Name Role Phone [facility] Primary Care Provider [phone] Reason for Visit * Reason Onset Date Comments Med Refill 03/20/2024 Encounter Details Date Type Department Care Team ([facility] st Contact Info) Description 03/20/2024 Telephone [facility] [address] [place], [place] [phone] [facility] [address] [place] [address] Med Refill Social History Tobacco Use Types [...] 9:31 AM EDT Medication was sent to [facility] on 02/07/24 #180 with 2 refills. * Telephone Encounter - Stefania Cardenas - 03/20/2024 9:23 AM EDT TC from pt requesting medication refill. Medications needing refill : metFORMIN XR (Glucophage-XR) 500 MG 24 hr tablet To be sent to: [facility] - [place], [place] - [address] [place] [address] documented in this encounter Plan of Treatment Upcoming Encounters Date Type Department Care Team (Late st Contact Info) Description 07/09/2025 9:00 AM EDT Office Visit [facility] [address] [place] [address] Charlotte Laureano FNP [address] [place] [address] documented as of this encounter Visit Diagnoses Not on filedocumented in this encounter Additional Health Concerns Assessment Noted Time PHQ-9 Depression Total Score: 0 12/22/19 24 9:02 AM EDT documented as of this encounter Care Teams Plumbing Manager Relationship Specialty Start Date End Date Georgi DAO Porter [address] [place] [address] PCP - General Family Medicine 06/09/22 documented as of this encounter
--- OUTSIDE RECORDS SUMMARY | 2025-06-21 20:46 | XMS_ITS | Encounter Summary ---
Author Organization [employer] Address 75 [facility] 7t [place] [address] Care Team Providers Care Bartender Server Name Role Phone [facility] Primary Care Provider [phone] Encounter Details Date Type Department Care Team ([facility] st Contact Info) Description 01/25/2024 Telephone [facility] MED[facility]INE [address] [place], [place] [phone] [facility] [address] [place] [address] Social History Tobacco Use Types Packs/Day Years [...] 07/09/2025 9:00 AM EDT Office Visit [facility] MED[facility]INE [address] [place] [address] Charlotte Laureano FNP [address] [place] [address] documented as of this encounter Visit Diagnoses Not on filedocumented in this encounter Additional Health Concerns Assessment Noted Time PHQ-9 Depression Total Score: 0 12/22/19 24 9:02 AM EDT documented as of this encounter Care Teams Bartender Server Relationship Specialty Start Date End Date Charlotte Laureano FNP [address] [place] [address] PCP - General Family Medicine 06/09/22 documented as of this encounter
--- OUTSIDE RECORDS SUMMARY | 2025-06-21 20:46 | XMS_ITS | Encounter Summary ---
Author Organization [employer] Address [address] [facility] 7t [place] [address] Care Team Providers Care State Tested Nursing Assistant Name Role Phone Georgi [facility] Primary Care Provider [phone] Encounter Details Date Type Department Care Team ([facility] Contact Info) Description 06/21/2025 Orders Only GENERIC EXTERNAL DATA DEPARTMENT Provider, Generic External Data Social History Tobacco Use Types Packs/Day Years [...] 9:00 AM EDT Office Visit [facility] [address] [place], [place] [phone] [facility] [address] [place], [place] [phone] documented as of this encounter Procedures Procedure Name Priority Date/Time Associated Diagnosis Comments HIGH SENSITIVITY TROPONIN I Routine 06/21/2025 12:01 PM EDT CBC WITH AUTO DIFFERENTIAL Routine 06/21/2025 12:01 PM EDT MAGNESIUM Routine 06/21/2025 12:01 PM EDT LIPASE Routine 06/21/2025 12:01 PM EDT COMPREHENSIVE METABOLIC PANEL Routine 06/21/2025 12:01 PM EDT documented in this encounter Results * High Sensitivity Troponin I (06/21/2025 12:01 PM EDT) TROPONIN I HIGH SENSITIVITY <2.7 <3.5 - 17.0 ng/L [facility] Comment:The Yepez high sens itivity Troponin-I results should beused in conjunction with other diagnostic information suchas ECG, clinical observations and information, and patientsymptoms to aid in the diagnosis of [place]. 06/21/2025 12:0 1 PM EDT 06/21/2025 12:04 PM EDT us Generic External Data Provider LAB BLOOD ORDERAB LES Final Result Performing Organization Address [facility]/ZIP Co de Phone Number [facility] [address] [place] [phone] * Lipase (06/21/2025 12:01 PM EDT) Lipase 32 8 - 78 U/L [facility] 06/21/2025 12:0 1 PM EDT 06/21/2025 12:04 PM EDT Generic External Data Provider LAB BLOOD ORDERAB LES Final Result Performing Organization Address [facility] de Phone Number [facility] [address] [place] [phone] * Magnesium (06/21/2025 12:01 PM EDT) Pathologist [facility] Magnesium 2.1 1.6 - 2.6 mg/dL [facility] 06/21/2025 12:0 1 PM EDT 06/21/2025 12:04 PM EDT Generic External Data Provider LAB BLOOD ORDERAB LES Final Result Performing Organization Address [facility] Co de Phone Number [facility] [address] [place] [phone] * (ABNORMAL) Comprehensive Metabolic Panel (06/21/2025 12:01 PM EDT) Sodium 140 135 - 145 mmol/L [facility] Potassium 5.1 3.3 - 5.1 mmol/L [facility] Chloride 103 96 - 108 mmol/L [facility] Carbon Dioxide 30(H) 22 - 29 mmol/L [facility] Anion Gap 12 12 - 20 [facility] Urea Nitrogen (BUN) 9 9 - 16 mg/dL [facility] Creatinine, Serum 0.79 0.5 - 1.4 mg/dL [facility] Creatinine Clr Calc Pharmacy 65.4 [facility] Comment:Provided height and weight: 162.56 cm,61.235 kg.eGFR (calculated from the MDRD study equation) and eCrCl(calculated from the Cockcroft-Gault equation) are based ondifferent parameters and may not yield comparable results.If eCrCl result is absurd, please check patient'sheight/weight. Estimated Glomerular Filt Rate >60 [facility] Comment:Chronic Kidney Disea se: Estimated GFR < 60 mL/min/1.38w6Atkwiq Kidney Disease: Estimated GFR < 15 mL/min/1.73m2 Glucose 109 60 - 115 mg/dL [facility] Calcium 9.7 8.4 - 10.2 mg/dL [facility] Bilirubin, Total 0.4 0.0 - 1.0 mg/dL [facility] Aspartate Amino Transferase 37(H) 5 - 31 U/L [facility] Alanine Aminotransferase 26 0 - 31 U/L [facility] Total Protein 7.1 6.5 - 8.0 g/dL [facility] Albumin Level 4.6 3.5 - 5.0 g/dL [facility] Alkaline Phosphatase 88 39 - 117 U/L [facility] 06/21/2025 12:0 1 PM EDT 06/21/2025 12:04 PM EDT us Generic External Data Provider LAB BLOOD ORDERAB LES Final Result [facility] [address] [place] [phone] [phone] * CBC auto differential (06/21/2025 12:01 PM EDT) White Blood Count 7.6 4.8 - 10.8 X10*3/uL [facility] Red Blood Count 4.62 4.20 - 5.50 X10*6/uL [facility] Hemoglobin 13.6 12.0 - 16.0 g/dl [facility] Hematocrit 40.0 37.0 - 47.0 % [facility] Mean Corpuscular Volume 86.6 80.0 - 98.0 fL [facility] Mean Corpuscular Hemoglobin 29.4 27.0 - 33.0 pg [facility] Mean Corpuscular HGB Conc 34.0 31.0 - 35.0 g/dl [facility] Red Cell Distribution Width 13.1 11.0 - 16.0 % [facility] Platelet Count 247 160 - 400 X10*3/uL [facility] Mean Platelet Volume 9.8 9.4 - 12.3 fL [facility] Neutrophils Percent Auto 64.0 45 - 73 % [facility] Imm Gran Pct Auto 0.1 0.0 - 0.4 % [facility] Lymphocytes Percent Auto 26.4 20 - 40 % [facility] Monocytes Percent Auto 8.2 2 - 11 % [facility] Eosinophils Percent Auto 0.9 0 - 4 % [facility] Basophils Percent Auto 0.4 0 - 2 % [facility] NRBC Pct Auto 0.0 0.0 - 0.2 /100WBC [facility] Neutrophils Absolute Auto 4.9 2.0 - 8.3 x10*3/uL [facility] Imm Gran Abs Auto 0.01 0.00 - 0.03 X10*3/uL [facility] Lymphocytes Absolute Auto 2.0 1.2 - 4.9 X10*3/uL [facility] Monocytes Absolute Auto 0.6 0.1 - 1.2 X10*3/uL [facility] Eosinophils Absolute Auto 0.1 0.0 - 0.4 X10*3/uL [facility] Basophils Absolute Auto 0.0 0.0 - 0.2 X10*3/uL [facility] NRBC Abs Auto 0.000 0.0 - 0.012 X10*3/uL [facility] 06/21/2025 12:0 1 PM EDT 06/21/2025 12:04 PM EDT us Generic External Data Provider LAB BLOOD ORDERAB LES Final Result [facility] [address] [place] [phone] [phone] documented in this encounter Visit Diagnoses Not on filedocumented in this encounter Additional Health Concerns Assessment Noted Time PHQ-9 Depression Total Score: 0 05/15/20 24 8:48 AM EDT documented as of this encounter Care Teams State Tested Nursing Assistant Relationship Specialty Start Date End Date Charlotte Laureano FNP [address] [place] [phone] PCP - General Family Medicine 06/09/22 documented as of this encounter
--- OUTSIDE RECORDS SUMMARY | 2025-06-21 20:46 | XMS_ITS | Encounter Summary ---
Author Organization [employer] Address [address] [facility] 7t [place] [address] Care Team Providers Care Nib Adjuster Name Role Phone Georgi [facility] Primary Care Provider [phone] Encounter Details Date Type Department Care Team ([facility] st Contact Info) Description 05/25/2024 Orders Only [facility] [address] [place], [place] [phone] Noreen Krishnamurthy RN Social History Tobacco Use [...] t he electric, gas, oil or water [employer] threatened to shut off services in your [...] Description 07/09/2025 9:00 AM EDT Office Visit [facility] [address] [place] [address] Charlotte Laureano FNP [address] [place] [address] documented as of this encounter Visit Diagnoses Not on filedocumented in this encounter Additional Health Concerns Assessment Noted Time PHQ-9 Depression Total Score: 0 05/15/20 24 8:48 AM EDT documented as of this encounter Care Teams Nib Adjuster Relationship Specialty Start Date End Date Charlotte Laureano FNP [address] [place] [address] PCP - General Family Medicine 06/09/22 documented as of this encounter
--- OUTSIDE RECORDS SUMMARY | 2025-06-21 20:46 | XMS_ITS | Clinical Summary ---
Author Organization [employer] Address [address] [facility] 7t [place] [address] Care Team Providers Care Adjuster And Inspector Name Role Phone Georgi [facility] Primary Care Provider Allergies Active Allergy Reactions Criticality Noted Date Comments Amoxicillin 09/23/2017 Other reaction(s): hair loss Gypsum 09/09/2018 Other reaction(s): Rash, Rash Risperidone 02/01/2014 [...] pain 11/02/2022 Overview (11/02/2022): - Presented to [facility] 07/25/22 with c/o chest tightness and [...] not helped with weight loss Referred to [facility] weight mgnmt 08/2022, denied due to lack of comorbidity Metformin 500mg b.I.d-tolerating well Assessment & Plan (12/22/2023 10:15 AM EDT): Metformin has been effective adjunct for patient along with diet/exercise Continue 500mg b.I.d At follow up plan to check B12 Healthcare maintenance 11/02/2022 Overview (12/22/2023): Mammo: 01/12/2022, bi-rads 1, followed by [facility] [employer] Pap: 01/2023 Neg HPV neg, followed by [facility] C-scope: 08/2015 neg; repeat 08/2025 BMD: Routine age 65 Immunizations: Up to date Assessment & Plan (12/22/2023 10:15 AM EDT): Updated mammogram ordered Patient will call to scheduled annual [employer] exam Assessment & Plan (04/25/2023 4:48 PM [...] Encounters Date Type Department Care Team Description 06/21/2025 Orders Only GENERIC EXTERNAL DATA DEPARTMENT Provider, Generic External Data 06/12/2025 2:20 PM EDT Office Visit [facility] [address] [place] [phone] [place], [place] Zachary Epigastric pain (Primary Dx) 06/12/2025 Travel 06/06/2025 11:00 AM EDT Office Visit [address] [address] Teresa Storm FNP Armpit pain, left (Primary Dx) 06/06/2025 Telephone [facility] MEDICINE [address] [place] [phone] Charlotte Laureano FNP Call Back Request 06/06/2025 Travel 05/29/2025 Refill [facility] [address] [place] [phone] Charlotte Laureano FNP Acute bilateral back pain, unspecified back location 05/08/2025 Refill [facility] [address] [place] [phone] Keshav Salvador MD 05/07/2025 Refill [facility] [address] [place] [address] Georgi, Charlotte, RESTAURANT SERVICE MANAGER Class 1 obesity due to excess calories with serious comorbidity and body mass index (BMI) of 33.0 to 33.9 in adult 04/25/2025 Orders Only [facility] MED[facility] [address] [place] [address] Adarsh aJved RN 04/02/2025 9:45 AM EDT Office Visit [facility] OPTOMETRY [address] [place] [address] Solange Vaughn, OD Presbyopia (Primary Dx) 04/02/2025 Travel from [...] 9:00 AM EDT Office Visit [facility] MED[facility] [address] [place] [address] [facility], [facility] [address] [place] [address] Health Maintenance Due Date Last Done Comments CT Colonography 1965 Dental Prophylaxis 1965 Dental X-Ray: Bitewings 1965 Dental X-Ray: Full Mouth 1965 FIT DNA/Cologuard 1965 FIT 1965 FOBT 1965 Sigmoidoscopy 1965 Disability Screening 1965 Alcohol/Substance Use Screening 1977 Depression Screening 05/15/2025 05/15/2024, 05/15/20 Influenza Vaccine (#1) 2025 , 06/29/2023, 07/27/2022, [...] TROPONIN I Routine 06/21/2025 12:01 PM EDT LIPASE Routine 06/21/2025 12:01 PM EDT MAGNESIUM Routine 06/21/2025 12:01 PM EDT COMPREHENSIVE METABOLIC PANEL Routine 06/21/2025 12:01 PM EDT CBC WITH AUTO DIFFERENTIAL Routine 06/21/2025 12:01 PM EDT HIV ANTIBODY/ANTIGEN ([place] [facility]) Routine 04/20/2025 HEPATITIS C ANTIBODY ([place] [facility]) Routine 04/20/2025 SYPHILIS ABS (ND DP) Routine 04/20/2025 BI MAMMOGRAM SCREENING TOMOSYNTHESIS BILATERAL Routine 01/26/2025 9:50 AM EDT PERIODIC ORAL EVALUATION - ESTABLISHED PATIENT Routine 12/25/2024 9:30 AM EDT LIPID PANEL, STANDARD Routine 07/08/2023 1:24 PM EDT Mixed hyperlipidemia HM PAP/HPV Routine 02/01/2023 COLONOSCOPY Routine 07/24/2015 8:38 AM EDT from Last 3 Months or Most Recently Relevant to Health Maintenance Results * High Sensitivity Troponin I (06/21/2025 12:01 PM EDT) [facility] TROPONIN I HIGH SENSITIVITY <2.7 <3.5 - 17.0 ng/L [facility] Comment:The Yepez high sens itivity Troponin-I results should beused in conjunction with other diagnostic information suchas ECG, clinical observations and information, and patientsymptoms to aid in the diagnosis of [place]. 06/21/2025 12:0 1 PM EDT 06/21/2025 12:04 PM EDT us Generic External Data Provider LAB BLOOD ORDERAB LES Final Result [facility] [address] [place] [address] [phone] * CBC auto differential (06/21/2025 12:01 PM EDT) Pathologist [facility] White Blood Count 7.6 4.8 - 10.8 X10*3/uL [facility] Red Blood Count 4.62 4.20 - 5.50 X10*6/uL [facility] Hemoglobin 13.6 12.0 - 16.0 g/dl [facility] Hematocrit 40.0 37.0 - 47.0 % [facility] Mean Corpuscular Volume 86.6 80.0 - 98.0 fL [facility] Mean Corpuscular Hemoglobin 29.4 27.0 - 33.0 pg [facility] Mean Corpuscular HGB Conc 34.0 31.0 - 35.0 g/dl [facility] Red Cell Distribution Width 13.1 11.0 - 16.0 % [facility] Platelet Count 247 160 - 400 X10*3/uL [facility] Mean Platelet Volume 9.8 9.4 - 12.3 fL [facility] Neutrophils Percent Auto 64.0 45 - 73 % [facility] Imm Gran Pct Auto 0.1 0.0 - 0.4 % [facility] Lymphocytes Percent Auto 26.4 20 - 40 % [facility] Monocytes Percent Auto 8.2 2 - 11 % [facility] Eosinophils Percent Auto 0.9 0 - 4 % [facility] Basophils Percent Auto 0.4 0 - 2 % [facility] NRBC Pct Auto 0.0 0.0 - 0.2 /100WBC [facility] Neutrophils Absolute Auto 4.9 2.0 - 8.3 x10*3/uL [facility] Imm Gran Abs Auto 0.01 0.00 - 0.03 X10*3/uL [facility] Lymphocytes Absolute Auto 2.0 1.2 - 4.9 X10*3/uL [facility] Monocytes Absolute Auto 0.6 0.1 - 1.2 X10*3/uL [facility] Eosinophils Absolute Auto 0.1 0.0 - 0.4 X10*3/uL [facility] Basophils Absolute Auto 0.0 0.0 - 0.2 X10*3/uL [facility] NRBC Abs Auto 0.000 0.0 - 0.012 X10*3/uL [facility] 06/21/2025 12:0 1 PM EDT 06/21/2025 12:04 PM EDT us Generic External Data Provider LAB BLOOD ORDERAB LES Final Result Performing Organization Address [facility]/ZIP Co de Phone Number [facility] [address] [place] [phone] [phone] * Magnesium (06/21/2025 12:01 PM EDT) Pathologist [facility] Magnesium 2.1 1.6 - 2.6 mg/dL [facility] 06/21/2025 12:0 1 PM EDT 06/21/2025 12:04 PM EDT us Generic External Data Provider LAB BLOOD ORDERAB LES Final Result Performing Organization Address [facility] Co de Phone Number [facility] [address] [place] [phone] * Lipase (06/21/2025 12:01 PM EDT) [facility] Lipase 32 8 - 78 U/L [facility] 06/21/2025 12:0 1 PM EDT 06/21/2025 12:04 PM EDT us Generic External Data Provider LAB BLOOD ORDERAB LES Final Result Performing Organization Address [facility] Co de Phone Number [facility] [address] [place] [phone] * (ABNORMAL) Comprehensive Metabolic Panel (06/21/2025 12:01 PM EDT) [facility] Sodium 140 135 - 145 mmol/L [facility] Potassium 5.1 3.3 - 5.1 mmol/L [facility] Chloride 103 96 - 108 mmol/L [facility] Carbon Dioxide 30(H) 22 - 29 mmol/L [facility] Anion Gap 12 12 - 20 [facility] Urea Nitrogen (BUN) 9 9 - 16 mg/dL [facility] Creatinine, Serum 0.79 0.5 - 1.4 mg/dL [facility] Creatinine Clr Calc Pharmacy 65.4 [facility] Comment:Provided height and weight: 162.56 cm,61.235 kg.eGFR (calculated from the MDRD study equation) and eCrCl(calculated from the Cockcroft-Gault equation) are based ondifferent parameters and may not yield comparable results.If eCrCl result is absurd, please check patient'sheight/weight. Estimated Glomerular Filt Rate >60 [facility] Comment:Chronic Kidney Disea se: Estimated GFR < 60 mL/min/1.98z1Tzezla Kidney Disease: Estimated GFR < 15 mL/min/1.73m2 Glucose 109 60 - 115 mg/dL [facility] Calcium 9.7 8.4 - 10.2 mg/dL [facility] Bilirubin, Total 0.4 0.0 - 1.0 mg/dL [facility] Aspartate Amino Transferase 37(H) 5 - 31 U/L [facility] Alanine Aminotransferase 26 0 - 31 U/L [facility] Total Protein 7.1 6.5 - 8.0 g/dL [facility] Albumin Level 4.6 3.5 - 5.0 g/dL [facility] Alkaline Phosphatase 88 39 - 117 U/L [facility] 06/21/2025 12:0 1 PM EDT 06/21/2025 12:04 PM EDT Generic External Data Provider LAB BLOOD ORDERAB LES Final Result [facility] [address] [place] [phone] * Syphilis Antibodies ([facility]) (04/20/2025) Syphilis Abs Nonreactive Borderline, Nonreactive, Weakly Reactive, Inconclusive, Specimen unsatisfactory for evaluation Blood Venous blood specimen / Unknown 04/20/2025 Historical Provider LAB BLOOD ORDERABLES Marion l Result * Hepatitis C Antibody ([facility]) (04/20/2025) Hepatitis C Ab Nonreactive Blood 04/20/2025 Historical Provider LAB BLOOD ORDERABLES Marion l Result * HIV Ab/Ag ([facility]) (04/20/2025) HIV Ag/Ab Nonreactive Blood 04/20/2025 Historical Provider LAB BLOOD ORDERABLES Marion l Result * BI Mammogram Screening Tomosynthesis Bilateral (01/26/2025 9:50 AM EDT) Anatomical Region Laterality Modality Breast Bilateral Mammography 01/26/2025 9:50 AM EDT Narrative 02/04/2025 8:27 AM EDT [facility] [place] [address] Mammography Report Signed Patient: Itzel Duncan MR#: [id number] 3 : 1965 Acct:[id number] Age/Sex: 59 / F ADM Date: 01/26/25 Loc: HO.MAMMO Attending Dr: Rosemary Germain MD Ordering Physician: Rosemary Germain MD Results: 2Beni gn Findings Date of Service: 01/26/25 Follow Up: 1 [facility] Procedure(s): MM tomosynthesis screening BI Accession Number(s): [id number] cc: Rosemary Germain MD EXAMINATION: MM SCREENING [...] 02/04/25 0825 DD/ 0950 TD/TT: 01/26/25 1016 Tray Line Supervisor: Procedure Note Donotuseinterpreter, Image - 02/04/2025 [facility] [address] [place] [address] Mammography Report Signed Patient: Itzel Duncan EMR#: [id number] 3 : 1965Acct:[id number] Age/Sex: 59 / FADM Date: 01/26/25 Loc: HO.MAMMO Attending Dr: Rosemary Germain MD Ordering Physician: Rosemary Germain MDResults: 2Beni gn Findings Date of Service: 01/26/25Follow Up: 1 Year From Orig ina Mammogram Procedure(s): MM tomosynthesis screening BI Accession Number(s): [id number] cc: Rosemary Germain MD EXAMINATION: MM SCREENING [...] 02/04/25 0825 DD/ 0950 TD/TT: 01/26/25 1016 Tray Line Supervisor: Rosemary Germain MD IMG BI PROCEDURES Edited Resu lt - Final * Lipid Panel, Standard (07/08/2023 1:24 PM EDT) Triglycerides 136 <150 mg/dL [facility] Comment:Desirable Triglyceri de: less than 150 mg/dLBorderline High Triglyceride 150-199 mg/dLHigh Triglyceride: 200-499 mg/dLVery High Triglyceride: greater than or equal to 5OO mg/dL Cholesterol 154 <200 mg/dL [facility] Comment:Desirable Cholestero l: less than 200 mg/dLBorderline High Cholesterol: 200-239 mg/dLHigh Cholesterol: greater than 239 mg/dL LDL Cholesterol Calculated 75 <100 mg/dL [facility] Comment:Desirable LDL: less than 100 mg/dLNear Optimal/Above Optimal LDL: 110- 129 mg/dLBorderline High LDL: 130-159 mg/dLHigh LDL: 160-189 mg/dLVery High LDL: greater than or equal to 190 mg/dL HDL Cholesterol 52 >40 mg/dL [facility] Comment:Desirable HDL: great er than 40 mg/dL Note: This HDL assay may give artificially low results in patients with liver disease. Blood Venous blood specimen / Unknown 07/08/2023 1:24 PM EDT 07/08/2023 3:54 PM EDT [facility] RESTAURANT SERVICE MANAGER LAB BLOOD ORDERABLES Final Re sult [facility] [address] [place] [address] [phone] * Hm Pap Smear (02/01/2023) Pap smear PERFORMED Comment:HPV MRNA NOT DETECTE D us Historical Provider HEALTH MAINTENANCE Final Result * Colonoscopy (07/24/2015 8:38 AM EDT) us Historical Provider HEALTH MAINTENANCE Final Result from Last 3 Months or Most Recently Relevant to Health Maintenance [place] [address] [place] [address] C[facility] MEDICAID STAND ADULT Care Teams Adjuster And Inspector Relationship Specialty Start Date End Date Charlotte Laureano FNP [address] [place] [address] PCP - General Family Medicine 06/09/22
--- OUTSIDE RECORDS SUMMARY | 2025-06-21 20:46 | XMS_ITS | Encounter Summary ---
Author Organization [employer] Address [address] [facility] [address] [place] [address] Care Team Providers Care Greenhouse Grower Name Role Phone [facility] Primary Care Provider [phone] Reason for Visit * Reason Onset Date Comments Referral 12/31/2023 Encounter Details Date Type Department Care Team ([facility] st Contact Info) Description 12/31/2023 Telephone [facility] [address] [place], [place] [phone] [facility] [address] [place] [address] Referral Social History Tobacco Use Types Packs/Day [...] center . Location: [facility] Address: [address] [place] [address] documented in this encounter Plan of Treatment Upcoming Encounters Date Type Department Care Team (Late st Contact Info) Description 07/09/2025 9:00 AM EDT Office Visit [facility] [address] [place] [address] Charlotte Laureano FNP [address] [place] [address] documented as of this encounter Visit Diagnoses Not on filedocumented in this encounter Additional Health Concerns Assessment Noted Time PHQ-9 Depression Total Score: 0 12/22/19 24 9:02 AM EDT documented as of this encounter Care Teams Greenhouse Grower Relationship Specialty Start Date End Date Charlotte Laureano FNP [address] [place] [address] PCP - General Family Medicine 06/09/22 documented as of this encounter
--- OUTSIDE RECORDS SUMMARY | 2025-06-21 20:46 | XMS_ITS | Encounter Summary ---
Author Organization [employer] Address [address] [facility] 7 [place] [address] Care Team Providers Care Manager Mba Name Role Phone [facility] Primary Care Provider [phone] Reason for Visit * Reason Onset Date Comments Nurse Triage 11/09/2023 Encounter Details Date Type Department Care Team ([facility] st Contact Info) Description 11/09/2023 Telephone [facility] [address] [place], [place] [phone] [facility] 230 [place] [address] Nurse Triage Social History Tobacco Use Types [...] 07/09/2025 9:00 AM EDT Office Visit [facility] [address] [place] [address] Charlotte Laureano FNP 230 [place] [address] documented as of this encounter Visit Diagnoses Not on filedocumented in this encounter Additional Health Concerns Assessment Noted Time PHQ-9 Depression Total Score: 0 10/13/19 24 11:29 AM EST documented as of this encounter Care Teams Manager Mba Relationship Specialty Start Date End Date Charlotte Laureano FNP [address] [place] [address] PCP - General Family Medicine 06/09/22 documented as of this encounter
--- OUTSIDE RECORDS SUMMARY | 2025-06-21 20:46 | XMS_ITS | Encounter Summary ---
Author Organization [employer] Address [address] [facility] 7 [place] [address] Care Team Providers Care Venetian Blind Machine Operator Name Role Phone [facility] Primary Care Provider [phone] Reason for Visit * Reason Onset Date Comments Results 11/17/2023 Encounter Details Date Type Department Care Team ([facility] st Contact Info) Description 11/17/2023 Telephone [facility] [address] [place], [place] [phone] [facility] [address] [place] [address] Results Social History Tobacco Use Types Packs/Day [...] a PAP smear. Please contact pt at [phone] * Telephone Encounter - Dony Hanson - [...] Office Visit [facility] 230 [place], [place] [phone] [facility] [address] [place], [place] [phone] documented as of this encounter Visit Diagnoses Not on filedocumented in this encounter Additional Health Concerns Assessment Noted Time PHQ-9 Depression Total Score: 0 10/13/19 24 11:29 AM EST documented as of this encounter Care Teams Venetian Blind Machine Operator Relationship Specialty Start Date End Date Charlotte Laureano FNP [address] [place] [address] PCP - General Family Medicine 06/09/22 documented as of this encounter
--- OUTSIDE RECORDS SUMMARY | 2025-06-21 20:46 | XMS_ITS | Encounter Summary ---
Author Organization [employer] Address 75 [facility] 7 [place] [address] Care Team Providers Care Pressurization Mechanic Name Role Phone [facility] Primary Care Provider [phone] Reason for Visit * Reason Onset Date Comments Med Refill 03/31/2024 Encounter Details Date Type Department Care Team ([facility] Contact Info) Description 03/31/2024 Telephone [facility] 230 [place], [place] [phone] [facility] 230 [place] [address] Med Refill Social History Tobacco Use Types [...] 9:40 AM EDT Script was sent to [facility] on 02/07/24 90 day supply with 2 refills. * Telephone Encounter - Stefania Cardenas - 03/31/2024 9:25 AM EDT TC from pt requesting medication refill. Medications needing refill : metFORMIN XR (Glucophage-XR) 500 MG 24 hr tablet To be sent to: [facility] - [place], [place] - [address] [place] [address] documented in this encounter Plan of Treatment Upcoming Encounters Date Type Department Care Team (Late st Contact Info) Description 07/09/2025 9:00 AM EDT Office Visit [facility] [address] [place] [address] Charlotte Laureano FNP [address] [place] [address] documented as of this encounter Visit Diagnoses Not on filedocumented in this encounter Additional Health Concerns Assessment Noted Time PHQ-9 Depression Total Score: 0 12/22/19 9:02 AM EDT documented as of this encounter Care Teams Pressurization Mechanic Relationship Specialty Start Date End Date Stendal DAO Porter [address] [place] [address] PCP - General Family Medicine 06/09/22 documented as of this encounter
--- OUTSIDE RECORDS SUMMARY | 2025-06-21 20:46 | XMS_ITS | Encounter Summary ---
Author Organization [employer] Address 75 [facility] 7 [place] [address] Care Team Providers Care Amusement Equipment Operator Name Role Phone [facility] Primary Care Provider [phone] Reason for Visit * Reason Onset Date Comments Hospital Follow-up 11/04/2023 Encounter Details Date Type Department Care Team ([facility] st Contact Info) Description 11/04/2023 Telephone [facility] 230 [place], [place] [phone] [facility] 230 [place], [place] [phone] Hospital Follow-up Social History Tobacco Use Types [...] 8:42 AM EST Tc from Radha at [facility] requesting a HDF follow up appt for the patient. Tc from pt requesting a HDF appt. [place] [facility] [place] Date of admission: 10/28 Discharge date: 11/04 Diagnosed: schizophrenia Disorder Please Call [facility] at [phone] documented in this encounter Plan of Treatment Upcoming Encounters Date Type Department Care Team (Late st Contact Info) Description 07/09/2025 9:00 AM EDT Office Visit [facility] 230 [place] [address] Charlotte Laureano FNP [address] [place] [address] documented as of this encounter Visit Diagnoses Not on filedocumented in this encounter Additional Health Concerns Assessment Noted Time PHQ-9 Depression Total Score: 0 10/13/19 24 11:29 AM EST documented as of this encounter Care Teams Amusement Equipment Operator Relationship Specialty Start Date End Date Charlotte Laureano FNP 230 [place] [address] PCP - General Family Medicine 06/09/22 documented as of this encounter
--- OUTSIDE RECORDS SUMMARY | 2025-06-21 20:46 | XMS_ITS | Encounter Summary ---
Author Organization [employer] Address 75 [facility] 7 [place] [address] Care Team Providers Care Insole Coverer Name Role Phone [facility] Primary Care Provider [phone] Reason for Visit * Reason Onset Date Comments Results 10/14/2023 Encounter Details Date Type Department Care Team ([facility] st Contact Info) Description 10/14/2023 Telephone [facility] 230 [place], [place] [phone] [facility] 230 [place] [address] Results Social History Tobacco Use Types Packs/Day [...] regards to results. Please contact pt at [phone] * Telephone Encounter - Maria De Jesus Shultz - 10/15/2023 9:06 AM EST Tc from pt calling in regards to results. Please contact pt at [phone] * Telephone Encounter - Maria De Jesus Shultz - 10/14/2023 2:43 PM EST TC from pt requesting call back regarding Results. Type of results: labs Date when done: 10/13 Facility: [facility] documented in this encounter Plan of Treatment Upcoming Encounters Date Type Department Care Team (Late st Contact Info) Description 07/09/2025 9:00 AM EDT Office Visit [facility] [address] [place] [address] [place] [facility] 230 [place] [address] documented as of this encounter Visit Diagnoses Not on filedocumented in this encounter Additional Health Concerns Assessment Noted Time PHQ-9 Depression Total Score: 0 10/13/19 24 11:29 AM EST documented as of this encounter Care Teams Insole Coverer Relationship Specialty Start Date End Date Charlotte Laureano FNP [address] [place] [address] PCP - General Family Medicine 06/09/22 documented as of this encounter
--- OUTSIDE RECORDS SUMMARY | 2025-06-21 20:46 | XMS_ITS | Encounter Summary ---
Author Organization [employer] Address [address] [place] [address] 7 [place] [address] Care Team Providers Care Licensed Direct Entry Midwife Name Role Phone [facility] Primary Care Provider [phone] Reason for Visit * Reason Onset Date Comments Results 07/12/2023 Encounter Details Date Type Department Care Team ([facility] st Contact Info) Description 07/12/2023 Telephone [facility] 230 [place] [address] [facility] [address] [place] [address] Results Social History Tobacco Use Types Packs/Day [...] 11:46 AM EDT T/C to pt. Through [employer] id - [id number] for below message, pt. Was informed regarding normal lipids labs. Pt. Verbally agreed and understood. * Telephone Encounter - Stefania Cardenas - 07/13/2023 4:17 PM EDT Pt calling again requesting a call in regards to results of 07/08 labs. Please contact pt at [phone] (Kazakh) * Telephone Encounter - Maria De Jesus Shultz - 07/12/2023 9:14 AM EDT Tc from pt requesting a call in regards to results of 07/08 labs. Please contact pt at [phone] (Kazakh) documented in this encounter Plan of Treatment Upcoming Encounters Date Type Department Care Team (Late st Contact Info) Description 07/09/2025 9:00 AM EDT Office Visit [facility] 230 [place] [address] Charlotte Laureano FNP [address] [place] [address] documented as of this encounter Visit Diagnoses Not on filedocumented in this encounter Additional Health Concerns Assessment Noted Time PHQ-9 Depression Total Score: 0 04/27/20 23 9:47 AM EDT documented as of this encounter Care Teams Licensed Direct Entry Midwife Relationship Specialty Start Date End Date Charlotte Laureano FNP [address] [place] [address] PCP - General Family Medicine 06/09/22 documented as of this encounter
--- OUTSIDE RECORDS SUMMARY | 2025-06-21 20:46 | XMS_ITS | Encounter Summary ---
Author Organization [employer] Address 75 [facility] 7 [place] [address] Care Team Providers Care Finishing Department Supervisor Name Role Phone [facility] Primary Care Provider [phone] Reason for Visit * Reason Onset Date Comments Nurse Triage 11/10/2023 Encounter Details Date Type Department Care Team ([facility] st Contact Info) Description 11/10/2023 Telephone [facility] 230 [place], [place] [phone] [facility] 230 [place] [address] Nurse Triage Social History Tobacco Use Types [...] 10:49 AM EST Triage attempted x2 with [employer] Vault Attendant ID [id number] . Both call went directly to message [...] accepted this outcome Please contact pt at [phone] (bermudian) documented in this encounter Plan of Treatment Upcoming Encounters Date Type Department Care Team (Late st Contact Info) Description 07/09/2025 9:00 AM EDT Office Visit [facility] 230 [place] [address] Charlotte Laureano FNP [address] [place] [address] documented as of this encounter Visit Diagnoses Not on filedocumented in this encounter Additional Health Concerns Assessment Noted Time PHQ-9 Depression Total Score: 0 10/13/19 24 11:29 AM EST documented as of this encounter Care Teams Finishing Department Supervisor Relationship Specialty Start Date End Date Charlotte Laureano, DAO [address] [place] [address] PCP - General Family Medicine 06/09/22 documented as of this encounter
--- OUTSIDE RECORDS SUMMARY | 2025-06-21 20:46 | XMS_ITS | Encounter Summary ---
Author Organization [employer] Address [address] [facility] 7 [place] [address] Care Team Providers Care Column Precaster Name Role Phone [facility] Primary Care Provider [phone] Reason for Visit * Reason Onset Date Comments Referral Letter 02/21/2025 Encounter Details Date Type Department Care Team ([facility] st Contact Info) Description 02/21/2025 Telephone [facility] 230 [place], [place] [phone] [facility] 230 [place] [address] Referral Letter Social History Tobacco Use Types [...] be sent via mail. Referral: Neurology - [address] [place] [address] 4th Floor [address] [facility] [address] Pt states is unable to get (type) information over the phone due to the tremors in her hands. documented in this encounter Plan of Treatment Upcoming Encounters Date Type Department Care Team (Late st Contact Info) Description 07/09/2025 9:00 AM EDT Office Visit [facility] 230 [place] [address] Charlotte Laureano FNP 230 [place] [address] documented as of this encounter Visit Diagnoses Not on filedocumented in this encounter Additional Health Concerns Assessment Noted Time PHQ-9 Depression Total Score: 0 05/15/20 24 8:48 AM EDT documented as of this encounter Care Teams Column Precaster Relationship Specialty Start Date End Date Charlotte Laureano FNP 230 [place] [address] PCP - General Family Medicine 06/09/22 documented as of this encounter
--- OUTSIDE RECORDS SUMMARY | 2025-06-21 20:46 | XMS_ITS | Encounter Summary ---
Author Organization [email or web address] Address [address] [place] [address] 7 [place] [address] Care Team Providers Care Weight Engineer Name Role Phone [facility] Primary Care Provider [phone] Reason for Visit * Reason Onset Date Comments Lab Orders 11/23/2022 Encounter Details Date Type Department Care Team ([facility] st Contact Info) Description 11/23/2022 Telephone [facility] 230 [place] [address] [facility] 230 [place] [address] Lab Orders Social History Tobacco Use Types [...] blood work order Please contact pt at [phone] documented in this encounter Plan of Treatment Upcoming Encounters Date Type Department Care Team (Late st Contact Info) Description 07/09/2025 9:00 AM EDT Office Visit [facility] 230 [place] [address] Charlotte Laureano FNP [address] [place] [address] documented as of this encounter Visit Diagnoses Not on filedocumented in this encounter Additional Health Concerns Assessment Noted Time PHQ-9 Depression Total Score: 0 11/13/19 23 1:38 PM EST documented as of this encounter Care Teams Weight Engineer Relationship Specialty Start Date End Date Charlotte Laureano FNP 230 [place] [address] PCP - General Family Medicine 06/09/22 documented as of this encounter
== END 2025-06-21 20:47 | disposition left against medical advice (07) ==
LOC: HO.ED 20:43
PROVIDERS: Physician Assistant Medical; Emergency Provider Emergency Medicine; PCP Family Medicine
DX: R10.9 Unspecified abdominal pain (principal); Z53.21 Procedure and treatment not carried out due to patient leaving prior to being seen by health care provider
CPT/HCPCS: 36415; 80053; 83690; 83735; 84484; 85025; 93005; 99283

== ENCOUNTER → 2025-06-21 11:47 | Outpatient (BNV) | payer MEDICAID, SELFPAY | PROVIDERS: PCP Family Medicine; Visit Provider Internal Medicine Cardiovascular Disease | DX: R07.9 Chest pain, unspecified (principal) | CPT/HCPCS: 93010 ==

== ENCOUNTER 2025-07-09 10:06 | Outpatient (REF) | payer MEDICAID, SELFPAY ==
--- OUTSIDE RECORDS SUMMARY | 2025-07-09 09:00 | XMS_ITS | Encounter Summary ---
Author Organization [employer] Address [address] [place] [address] [address] [place] [address] Care Team Providers Care Api Architect Name Role Phone Charlotte Laureano Primary Care Provider [phone] Pete Shultz RN Unavailable [phone] Jacinta Bajwa Unavailable Reason for Referral * Imaging (Routine) - Pending Review Specialty Diagnoses / Procedures Referred By Priya gonzalez Referred To Contact Cardiology Diagnoses Tachycardia Procedures Transthoracic Echo (TTE) Complete Charlotte Laureano FNP [address] [place], [place] Phone: tel: fax: Referral ID Status Reason Start Date Expiration Date Visits Requested Visits Authorized [id number] Pending Review Perform Procedure 07/09/2025 07/09/2026 1 1 * Cardiology (Routine) - Pending Review Specialty Diagnoses / Procedures Referred By Priya gonzalez Referred To Contact Cardiology Diagnoses Tachycardia Procedures Holter monitor - 24 hour Charlotte Laureano FNP [address] [place], [place] Phone: tel: fax: Referral ID Status Reason Start Date Expiration Date V isits Requested Visits Authorized [id number] Pending Review 07/09/2025 07/09/2026 1 1 Reason for Visit * Reason Comments Follow-up Encounter Details Date Type Department Care Team (Latest Contact Info) Description 07/09/2025 9:00 AM EDT Office Visit [facility] MEDICINE [address] [place] [address] [place], [place], [employer] [address] [place] [address] Tachycardia (Primary Dx); Constipation, unspecified constipation type; Dysuria; Mixed hyperlipidemia Social History Tobacco Use Types Packs/Day Years [...] Pressure 122/80 07/09/2025 9:01 AM EDT Pulse 140 07/09/2025 9:01 AM EDT Temperature 37.5 C (99.5 F) [...] AM EDT Helen Bear MA * Feeling bad about yourself - or that you are a failure or have let yourself or your family down Answer Date of Assessment Author Not at all 07/09/2025 9:02 AM EDT Helen Bear MA * Trouble concentrating on things, such [...] Torre [place] documented as of this encounter Plan of Treatment Scheduled Orders Name Type Priority Associated Diagnoses Orde r Schedule Holter monitor - 24 hour Cardiac Services Routine Tachycardia Expected: 07/09/2025 (Approximate), Expires: 07/09/2027 TSH W/Reflex to FT4 Lab Routine Tachycardia Expected: 07/09/2025 (Approximate), Expires: 07/09/2026 CBC auto differential Lab Routine Tachycardia Expected: 07/09/2025 (Approximate), Expires: 07/09/2026 Transthoracic Echo (TTE) Complete Echocardiography Routine Tachycardia Expected: 07/09/2025 (Approximate), Expires: 07/09/2027 Urinalysis, Complete, with Reflex to Culture Lab Routine Dysuria Expected: 07/09/2025 (Approximate), Expires: 07/09/2026 Bacterial Vaginosis Panel Microbiology Routine Dysuria Ordered: 07/09/2025 Chlamydia/N. Gonorrhoeae RNA, TMA, Vaginal Microbiology Routine Dysuria Ordered: 07/09/2025 Lipid Panel, Standard Lab Routine Mixed hyperlipidemia Expected: 07/09/2025 (Approximate), Expires: 07/09/2026 Vitamin B12/Folate, Serum Panel Lab Routine Tachycardia Expected: 07/09/2025, Expires: 07/09/2026 documented as of this encounter Visit Diagnoses Diagnosis Tachycardia- Primary Unspecified tachycardia Constipation, unspecified constipation type Dysuria Mixed hyperlipidemia documented in this encounter Additional Health Concerns Assessment Noted Time PHQ-9 Depression Total Score: 0 07/09/20 9:02 AM EDT documented as of this encounter Care Teams Api Architect Relationship Specialty Start Date End Date [place], DAO Porter [address] [place] [address] PCP - General Family Medicine 06/09/22 Pete Shultz RN [address] [place] [address] Registered Nurse Family Medicine 06/22/25 Jacinta Bajwa 06/22/25 documented as of this encounter
[2025-07-09 11:08] LABS: MANUAL DIFF FLAG NO
--- OUTSIDE RECORDS SUMMARY | 2025-07-09 11:17 | XMS_ITS | Encounter Summary ---
Author Organization [employer] Address [address] [facility] 7t [place] [address] Care Team Providers Care Site Physician Name Role Phone [facility] Primary Care Provider [phone] Pete Shultz RN Unavailable [phone] Jacinta Bajwa Unavailable Reason for Visit * Reason Onset Date Comments Lab Orders 02/25/2023 Encounter Details Date Type Department Care Team (Late st Contact Info) Description 02/25/2023 Telephone [facility] MEDICINE [address] [place] [address] [facility] [address] [place] [address] Lab Orders Social History Tobacco Use Types [...] - 03/15/2023 10:27 AM EDT T/C to [phone] through [employer] , Message states , The number you [...] PM EDT T/C placed to pt via [employer] Director Public Ana María #[id number]. Pt states she would like a lab [...] check for diabetes. Please contact pt at [phone] documented in this encounter Plan of Treatment Not on file documented as of this encounter Visit Diagnoses Not on filedocumented in this encounter Additional Health Concerns Assessment Noted Time PHQ-9 Depression Total Score: 0 11/13/19 23 1:38 PM EST documented as of this encounter Care Teams Site Physician Relationship Specialty Start Date End Date [place] Laureano FNP [address] [place] [address] PCP - General Family Medicine 06/09/22 Pete Shultz RN [address] [place] [address] Registered Nurse Family Medicine 06/22/25 Jacinta Bajwa 06/22/25 documented as of this encounter
--- OUTSIDE RECORDS SUMMARY | 2025-07-09 11:17 | XMS_ITS ---
Author Organization [employer] Address [address] [facility] 7t [place] [address] Care Team Providers Care Upstairs Maid Name Role Phone Charlotte Laureano [facility] Primary Care Provider [phone] Pete Shultz RN Unavailable [phone] Jacinta Bajwa Unavailable CM Complex Status:Enrolled (Active) Start date:06/22/2025 Enrollment date:06/28/2025 Enrollment reason:ADT Feed Overview [place] [facility] Case Team Name Relationship Phone Pete Shultz RN(Responsible Staff) Registered Nurse [phone] Continued Care and Services Coordination
--- OUTSIDE RECORDS SUMMARY | 2025-07-09 11:17 | XMS_ITS | Encounter Summary ---
Author Organization [employer] Address [address] [facility] 7t [place] [address] Care Team Providers Care Diesel Fitter Mechanic Name Role Phone Georgi [facility] Primary Care Provider [phone] Pete Shultz RN Unavailable [phone] Jacinta Bajwa Unavailable Encounter Details Date Type Department Care Team (Latest Contact Info) Description 07/09/2025 Travel Social History Tobacco Use Types Packs/Day Years [...] AM EDT documented as of this encounter Functional Status * Over the [...] Helen De La Torre MA * Feeling down, depressed, or hopeless Answer Date of Assessment Author Not at all 07/09/2025 9:02 AM Helen De La Torre MA * Trouble falling or staying asleep, or sleeping too much Answer Date of Assessment Author Not at all 07/09/2025 9:02 AM Helen De La Torre MA * Feeling tired or having little energy Answer Date of Assessment Author Not at all 07/09/2025 9:02 AM Helen De La Torre MA * Poor appetite or overeating Answer [...] 9:02 AM EDT Helen Bear MA * Thoughts that you would be better off or hurting yourself in some way Answer Date of Assessment Author Not at all 07/09/2025 9:02 AM EDT Helen Bear MA * Patient Health Questionnaire-9 Score Answer Date of Assessment Author 0 07/09/2025 9:02 AM EDT Helen Bear MA documented as of this encounter Plan of Treatment Not on file documented as of this encounter Visit Diagnoses Not on filedocumented in this encounter Additional Health Concerns Assessment Noted Time PHQ-9 Depression Total Score: 0 07/09/20 9:02 AM EDT documented as of this encounter Care Teams Diesel Fitter Mechanic Relationship Specialty Start Date End Date Charlotte Laureano FNP [address] [place] [address] PCP - General Family Medicine 06/09/22 Pete Shultz RN [address] [place] [address] Registered Nurse Family Medicine 06/22/25 Jacinta Bajwa 06/22/25 documented as of this encounter
--- OUTSIDE RECORDS SUMMARY | 2025-07-09 11:17 | XMS_ITS | Encounter Summary ---
Author Organization [email or web address] Address [address] [place] [address] [address] [place] [address] Care Team Providers Care Investigator Name Role Phone [facility] Primary Care Provider [phone] Pete Shultz RN Unavailable [phone] Jacinta Bajwa Unavailable Encounter Details Date Type Department Care Team (Late st Contact Info) Description 01/22/2023 Telephone [facility] MEDICINE [address] [place] [address] [facility] [address] [place] [address] Social History Tobacco Use Types Packs/Day Years [...] documented as of this encounter Care Teams Investigator Relationship Specialty Start Date End Date [place] [facility] [address] [place] [address] PCP - General Family Medicine 06/09/22 Pete Shultz RN [address] [place] [address] Registered Nurse Family Medicine 06/22/25 Jacinta Bajwa 06/22/25 documented as of this encounter
--- OUTSIDE RECORDS SUMMARY | 2025-07-09 11:17 | XMS_ITS | Encounter Summary ---
Author Organization [employer] Address [address] [facility] 7t [place] [address] Care Team Providers Care Luncheonette Manager Name Role Phone [facility] Primary Care Provider [phone] Pete Shultz RN Unavailable [phone] Jacinta Bajwa Unavailable Reason for Visit * Reason Onset Date Comments Chart Prep 07/06/2025 Encounter Details Date Type Department Care Team (Late st Contact Info) Description 07/06/2025 Telephone [facility] MEDICINE [address] [place] [address] [facility] [address] [place], [place] [id number] Chart Prep Social History Tobacco Use Types Packs/Day Years Used Date Smoking Tobacco: Never Passive Smoke Exposure: Never Smokeless Tobacco: Never Alcohol Use Standard Drinks/Week Comments Never 0 (1 standard drink = 0.6 oz pur e alcohol) Depression Answer Date Recorded Patient Health Questionnaire-9 Score 0 06/28/2025 Patient Health Questionnaire-9 Score 0 06/28/2025 Last PHQ-9: Questionnaire Data Not on file 0 06/28/2025 Housing Stability Answer Date Recorded What is [...] Date Recorded Patient Health Questionnaire-2 Score 0 06/28/2025 Internet Access Answer Date Recorded Internet Access [...] encounter Miscellaneous Notes * Telephone Encounter - Aure Montemayor [place] - 07/06/2025 1:51 PM EDT Chart Prep Labs: not applicable Images: not applicable Referrals: complete Vaccines due: Flu Screenings: not applicable Overdue care gaps: SBIRT and Disability screen documented in this encounter Plan of Treatment Not on file documented as of this encounter Visit Diagnoses Not on filedocumented in this encounter Additional Health Concerns Assessment Noted Time PHQ-9 Depression Total Score: 0 06/28/20 25 10:53 AM EDT documented as of this encounter Care Teams Luncheonette Manager Relationship Specialty Start Date End Date Charlotte Laureano FNP [address] [place] [address] PCP - General Family Medicine 06/09/22 Pete Shultz, SHARI [address] [place] [address] Registered Nurse Family Medicine 06/22/25 Jacinta Bajwa 06/22/25 documented as of this encounter
--- OUTSIDE RECORDS SUMMARY | 2025-07-09 11:17 | XMS_ITS | Clinical Summary ---
Author Organization [employer] Address [address] [facility] 7t [place] [address] Care Team Providers Care Digital Production Artist Name Role Phone Charlotte Laureano [facility] Primary Care Provider Pete Shutlz RN Unavailable [phone] Jacinta aBjwa Unavailable Allergies Active Allergy Reactions Criticality Noted Date Comments Amoxicillin 09/23/2017 Other reaction(s): hair loss [place] 09/09/2018 Other reaction(s): Rash, Rash Risperidone 02/01/2014 [...] 22 Active SUMAtriptan (Imitrex) 25 MG tablet 08/17/20 22 Active capsaicin (Zostrix) 0.025 % [...] EVERY MORNING 48 g 05/11/20 23 Active Multiple Vitamin (multivitamin) tabletIndication s:Healthcare maintenance Take [...] 24 Active nortriptyline (Pamelor) 25 MG capsule 05/22/20 24 Active docusate sodium (Colace) 100 MG capsule 04/28/20 24 Active GaviLAX 17 GM/SCOOP powderIndication [...] FT All Day Pain Relief 220 MG tabletIndication s:Acute bilateral back pain, unspecified back location TAKE 1 TABLET BY MOUTH TWICE DAILY IN THE MORNING AND AT BEDTIME NEEDED FOR MILD PAIN 60 tablet 1 05/30/20 25 Active acetaminophen (Tylenol Extra Strength) 500 MG tablet Take 1 tablet (500 mg) by mouth every 8 (eight) hours if needed for moderate pain. 90 tablet 06/12/20 25 025 Active famotidine (Pepcid) 40 MG tablet Take 1 tablet (40 mg) by mouth 2 times daily. 60 tablet 06/12/20 25 026 Active polyethylene glycol, PEG, 3350 (MiraLax) 17 GM/SCOOP powderIndication s:Constipation, unspecified constipation type Take 17 g by mouth Once per day. 527 g 2 07/09/20 25 Active naproxen (Naprosyn) 500 MG tabletIndication s:Armpit pain, left Take 1 tablet (500 mg) by mouth 2 times daily for 7 days. Do not take with FT all day pain relief during the 7 days . Can continue with FT all day after completion of naprosyn 14 tablet 06/06/20 25 025 Discontin ued(Side effects) Active Problems Problem Noted Date Diagnosed [...] 11/02/2022 Overview (11/02/2022): - Presented to [facility] ED 07/25/22 with c/o [...] not helped with weight loss Referred to [facility] weight mgnmt 08/2022, denied due to lack of comorbidity Metformin 500mg b.I.d-tolerating well Assessment & Plan (12/22/2023 10:15 AM EDT): Metformin has been effective adjunct for patient along with diet/exercise Continue 500mg b.I.d At follow up plan to check B12 Healthcare maintenance 11/02/2022 Overview (12/22/2023): Mammo: 01/12/2022, bi-rads 1, followed by [facility] Pap: 01/2023 Neg HPV neg, followed by [facility] C-scope: 08/2015 neg; repeat 08/2025 BMD: Routine age 65 Immunizations: Up to date Assessment & Plan (12/22/2023 10:15 AM EDT): Updated mammogram ordered Patient will call to scheduled annual [facility] exam Assessment & Plan (04/25/2023 4:48 PM EDT): Multivitamin sent to the pharmacy Constipation 09/23/2017 Chloasma 06/10/2017 Vitamin D deficiency 08/17/2016 Bipolar I disorder ([facility] 08/21/2015 Overview (02/22/2023): Followed by outside psychiatry [...] Encounters Date Type Department Care Team Description 07/09/2025 9:00 AM EDT Office Visit [address] [address] Charlotte Laureano FNP Tachycardia (Primary Dx); Constipation, unspecified constipation type; Dysuria; Mixed hyperlipidemia 07/09/2025 Travel 07/06/[address] [address] Charlotte Laureano FNP Chart Prep 07/02/2025 Patient Outreach [address] [address] Charlotte Laureano FNP Pre-visit Planning (SDOH screening completed on 06/28/2025) 06/28/2025 Plan of Care Documentation [address] [address] 06/28/2025 Patient Outreach [address] [address] Charlotte Laureano FNP Care Coordination 06/28/2025 Patient Outreach [address] [address] Charlotte Laureano FNP 06/22/[address] [address] order 06/22/2025 Patient Outreach [address] [address] Charlotte Laureano FNP Care Coordination (CM/CHW outreach) 06/22/2025 Patient Outreach [address] [address] Charlotte Laureano FNP Care Management (C3CM- chart review) 06/22/2025 Patient Outreach [address] [address] Charlotte Laureano FNP 06/21/2025 Orders Only GENERIC EXTERNAL DATA DEPARTMENT Provider, Generic External Data 06/12/2025 2:20 PM EDT Office Visit [facility] [address] [place] [phone] Zachary Simon MD Epigastric pain (Primary Dx) 06/12/2025 Travel 06/06/2025 11:00 AM EDT Office Visit [address] [address] Teresa Storm FNP Armpit pain, left (Primary Dx) 06/06/[address] [address] Charlotte Laureano FNP Call Back Request 06/06/2025 Travel 05/29/2025 Refill [facility] [address] [place] [address] Charlotte Laureano FNP Acute bilateral back pain, unspecified back location 05/08/2025 Refill [facility] [address] [place] [phone] Keshav Salvador MD 05/07/2025 Refill [facility] [address] [place], [place] [phone] Charlotte Laureano FNP Class 1 obesity due to excess calories with serious comorbidity and body mass index (BMI) of 33.0 to 33.9 in adult 04/25/2025 Orders Only [address] [address] Adarsh Javed, SHARI from Last 3 Months Immunizations Immunization Administration [...] 20 07/09/2025 9:01 AM EDT Oxygen Saturation 97% 06/12/2025 1:16 PM EDT Inhaled Oxygen Concentration - - Weight 67.6 kg (149 lb) 07/09/2025 9:01 AM EDT Height 160 cm (5' 3 ) 07/09/2025 9:01 AM EDT Body Mass Index 26.39 07/09/2025 9:01 AM EDT Plan of Treatment Health Maintenance Due Date Last Done Comments CT Colonography 1965 Dental Prophylaxis 1965 Dental X-Ray: Bitewings 1965 Dental X-Ray: Full Mouth 1965 FIT DNA/Cologuard 1965 FIT 1965 FOBT 1965 Sigmoidoscopy 1965 Disability Screening 1965 Dental Oral Exam 06/28/2025 12/25/2024, 12/21/2022 Colonoscopy 07/24/2025 07/24/2015 Colorectal Cancer Screening 07/24/2025 Mammogram 01/26/2026 01/26/2025, 01/09, 01/15/2023, Additional history exists SDOH Screening 06/28/2026 06/28/2025 Alcohol/Substance Use Screening 07/09/2026 07/09/2025 Depression Screening 07/09/2026 07/09/2025, 07/09/20 Tobacco Screening 07/09/2026 07/09/2025 Cervical Cancer Screening 02/02/2028 HPV/Cotest 02/02/2028 Pap [...] 05/28/2020 Hepatitis C Screening Completed 04/20/2025, 023 Influenza Vaccine Completed 07/05/2025, , 06/29/2023, Additional history exists HIB Vaccines Aged Out No longer eligi [...] HIGH SENSITIVITY <2.7 <3.5 - 17.0 ng/L [facility] Comment:The Yepez high sens itivity Troponin-I results should beused in conjunction with other diagnostic information suchas ECG, clinical observations and information, and patientsymptoms to aid in the diagnosis of HI. 06/21/2025 12:0 1 PM EDT 06/21/2025 12:04 PM EDT us Generic External Data Provider LAB BLOOD ORDERAB LES Final Result [facility] [address] [place], [place] [phone] * CBC auto differential (06/21/2025 12:01 PM EDT) White Blood Count 7.6 4.8 - 10.8 X10*3/uL [facility] Red Blood Count 4.62 4.20 - 5.50 X10*6/uL [facility] Hemoglobin 13.6 12.0 - 16.0 g/dl [facility] Hematocrit 40.0 37.0 - 47.0 % [facility] Mean Corpuscular Volume 86.6 80.0 - 98.0 fL [facility] Mean Corpuscular Hemoglobin 29.4 27.0 - 33.0 pg [facility] Mean Corpuscular HGB Conc 34.0 31.0 - 35.0 g/dl [facility] Red Cell Distribution Width 13.1 11.0 - 16.0 % [facility] Platelet Count 247 160 - 400 X10*3/uL [facility] Mean Platelet Volume 9.8 9.4 - 12.3 fL [facility] Neutrophils Percent Auto 64.0 45 - 73 % [facility] Imm Gran Pct Auto 0.1 0.0 - 0.4 % [facility] Lymphocytes Percent Auto 26.4 20 - 40 % [facility] Monocytes Percent Auto 8.2 2 - 11 % [facility] Eosinophils Percent Auto 0.9 0 - 4 % [facility] Basophils Percent Auto 0.4 0 - 2 % [facility] NRBC Pct Auto 0.0 0.0 - 0.2 /100WBC [facility] Neutrophils Absolute Auto 4.9 2.0 - 8.3 x10*3/uL [facility] Imm Gran Abs Auto 0.01 0.00 - 0.03 X10*3/uL [facility] Lymphocytes Absolute Auto 2.0 1.2 - 4.9 X10*3/uL [facility] Monocytes Absolute Auto 0.6 0.1 - 1.2 X10*3/uL [facility] Eosinophils Absolute Auto 0.1 0.0 - 0.4 X10*3/uL [facility] Basophils Absolute Auto 0.0 0.0 - 0.2 X10*3/uL [facility] NRBC Abs Auto 0.000 0.0 - 0.012 X10*3/uL [facility] 06/21/2025 12:0 1 PM EDT 06/21/2025 12:04 PM EDT us Generic External Data Provider LAB BLOOD ORDERAB LES Final Result Performing Organization Address City/[facility]/ZIP Co de Phone Number [facility] [address] [place] [phone] * Magnesium (06/21/2025 12:01 PM EDT) Magnesium 2.1 1.6 - 2.6 mg/dL [facility] 06/21/2025 12:0 1 PM EDT 06/21/2025 12:04 PM EDT us Generic External Data Provider LAB BLOOD ORDERAB LES Final Result Performing Organization Address [facility] Co de Phone Number [facility] [address] [place] [phone] * Lipase (06/21/2025 12:01 PM EDT) Lipase 32 8 - 78 U/L [facility] 06/21/2025 12:0 1 PM EDT 06/21/2025 12:04 PM EDT us Generic External Data Provider LAB BLOOD ORDERAB LES Final Result Performing Organization Address City/[facility]/ZIP Co de Phone Number [facility] [address] [place] [phone] * (ABNORMAL) Comprehensive Metabolic Panel (06/21/2025 12:01 PM EDT) Sodium 140 135 - 145 mmol/L [facility] Potassium 5.1 3.3 - 5.1 mmol/L [facility] Chloride 103 96 - 108 mmol/L [facility] Carbon Dioxide 30(H) 22 - 29 mmol/L [facility] Anion Gap 12 12 - 20 [facility] Urea Nitrogen (BUN) 9 9 - 16 mg/dL [facility] Creatinine, Serum 0.79 0.5 - 1.4 mg/dL [facility] Creatinine Clr Calc Pharmacy 65.4 [facility] Comment:Provided height and weight: 162.56 cm,61.235 kg.eGFR (calculated from the MDRD study equation) and eCrCl(calculated from the Cockcroft-Gault equation) are based ondifferent parameters and may not yield comparable results.If eCrCl result is absurd, please check patient'sheight/weight. Estimated Glomerular Filt Rate >60 [facility] Comment:Chronic Kidney Disea se: Estimated GFR < 60 mL/min/1.00j0Hsketa Kidney Disease: Estimated GFR < 15 mL/min/1.73m2 Glucose 109 60 - 115 mg/dL [facility] Calcium 9.7 8.4 - 10.2 mg/dL [facility] Bilirubin, Total 0.4 0.0 - 1.0 mg/dL [facility] Aspartate Amino Transferase 37(H) 5 - 31 U/L [facility] Alanine Aminotransferase 26 0 - 31 U/L [facility] Total Protein 7.1 6.5 - 8.0 g/dL [facility] Albumin Level 4.6 3.5 - 5.0 g/dL [facility] Alkaline Phosphatase 88 39 - 117 U/L [facility] 06/21/2025 12:0 1 PM EDT 06/21/2025 12:04 PM EDT us Generic External Data Provider LAB BLOOD ORDERAB LES Final Result [facility] [address] [facility] [place] [phone] * Syphilis Antibodies (DPH) (04/20/2025) Syphilis Abs Nonreactive Borderline, Nonreactive, Weakly Reactive, Inconclusive, Specimen unsatisfactory for evaluation Blood Venous blood specimen / Unknown 04/20/2025 [facility] Provider LAB BLOOD ORDERABLES Marion l Result * Hepatitis C Antibody ([facility]) (04/20/2025) Hepatitis C Ab Nonreactive Blood 04/20/2025 [facility] Provider LAB BLOOD ORDERABLES Marion l Result * HIV Ab/Ag ([facility]) (04/20/2025) HIV Ag/Ab Nonreactive Blood 04/20/2025 [facility] Provider MD LAB BLOOD ORDERABLES Marion l Result * BI Mammogram Screening Tomosynthesis Bilateral (01/26/2025 9:50 AM EDT) Anatomical Region Laterality Modality Breast Bilateral Mammography 01/26/2025 9:50 AM EDT Narrative 02/04/2025 8:27 AM EDT [facility] [address] [place] [address] [place] [address] Mammography Report Signed Patient: Itzel Duncan MR#: [id number] 3 : 1965 Acct:[id number] Age/Sex: 59 / F ADM Date: 01/26/25 Loc: HO.MAMMO Attending Dr: Rosemary Germain MD Ordering Physician: Rosemary Germain MD Results: 2Beni gn Findings Date of Service: 01/26/25 Follow Up: 1 Year From Orig inal Mammogram Procedure(s): MM tomosynthesis screening BI Accession Number(s): [id number] cc: Rosemary Germain MD EXAMINATION: MM SCREENING [...] 02/04/25 0825 DD/ 0950 TD/TT: 01/26/25 1016 Emblem Fuser Tender: Procedure Note Donotuseinterpreter, Image - 02/04/2025 [facility] [address] [place] [address] Mammography Report Signed Patient: Itzel Duncan EMR#: [id number] 3 : 1965Acct:[id number] Age/Sex: 59 / FADM Date: 01/26/25 Loc: HO.MAMMO Attending Dr: Rosemary Germain MD Ordering Physician: Rosemary Germain MDResults: 2Beni gn Findings Date of Service: 01/26/25Follow Up: 1 Year From Orig inal Mammogram Procedure(s): MM tomosynthesis screening BI Accession Number(s): [id number] cc: Rosemary Germain MD EXAMINATION: MM SCREENING [...] 02/04/25 0825 DD/ 0950 TD/TT: 01/26/25 1016 Emblem Fuser Tender: us Rosemary Germain MD IMG BI PROCEDURES Edited Resu lt - Final * Lipid Panel, Standard (07/08/2023 1:24 PM EDT) Triglycerides 136 <150 mg/dL [facility] Comment:Desirable Triglyceri de: less than 150 mg/dLBorderline High Triglyceride 150-199 mg/dLHigh Triglyceride: 200-499 mg/dLVery High Triglyceride: greater than or equal to 5OO mg/dL Cholesterol 154 <200 mg/dL [facility] Comment:Desirable Cholestero l: less than 200 mg/dLBorderline High Cholesterol: 200-239 mg/dLHigh Cholesterol: greater than 239 mg/dL LDL Cholesterol Calculated 75 <100 mg/dL [facility] Comment:Desirable LDL: less than 100 mg/dLNear Optimal/Above Optimal LDL: 110- 129 mg/dLBorderline High LDL: 130-159 mg/dLHigh LDL: 160-189 mg/dLVery High LDL: greater than or equal to 190 mg/dL HDL Cholesterol 52 >40 mg/dL [facility] Comment:Desirable HDL: great er than 40 mg/dL Note: This HDL assay may give artificially low results in patients with liver disease. Blood Venous blood specimen / Unknown 07/08/2023 1:24 PM EDT 07/08/2023 3:54 PM EDT [facility] [employer] LAB BLOOD ORDERABLES Final Re sult [facility] [address] [place] [phone] * Pap Smear (02/01/2023) Pap smear PERFORMED Comment:HPV MRNA NOT DETECTE D Historical Provider HEALTH MAINTENANCE Final Result * Colonoscopy (07/24/2015 8:38 AM EDT) Historical Provider HEALTH MAINTENANCE Final Result from Last 3 Months or Most Recently Relevant to Health Maintenance Insurance [facility] C3 DENTAL-[facility] MEDICAID STAND ADULT Care Teams Digital Production Artist Relationship Specialty Start Date End Date [place] FNP [address] [place] [phone] PCP - General Family Medicine 06/09/22 Pete Shultz RN [address] [place] [address] Registered Nurse Family Medicine 06/22/25 Jacinta Bajwa 06/22/25
--- OUTSIDE RECORDS SUMMARY | 2025-07-09 11:17 | XMS_ITS ---
Author Organization [employer] Address [address] [facility] 7t [place] [address] Care Team Providers Care Block Layer Name Role Phone [facility] Primary Care Provider [phone] Pete Shultz RN Unavailable [phone] Jacinta Bajwa Unavailable [facility] Status:Enrolled (Active) Start date:06/22/2025 Enrollment date:06/28/2025 Enrollment reason:ADT Feed Overview ADT- [facility] 06/21/25. Please outreach for enrollment. Case Team Name Relationship Phone Jacinta Bajwa(Responsible Staff) [phone] Continued Care and Services Coordination
--- OUTSIDE RECORDS SUMMARY | 2025-07-09 11:18 | XMS_ITS | Encounter Summary ---
Author Organization [employer] Address [address] [facility] 7t [place] [address] Care Team Providers Care Graffiti Cleaner Name Role Phone [facility] Primary Care Provider [phone] Pete Shultz RN Unavailable [phone] Jacinta Bajwa Unavailable Reason for Visit * Reason Onset Date Comments Hospital Follow-up 11/04/2023 Encounter Details Date Type Department Care Team (Late st Contact Info) Description 11/04/2023 Telephone [facility] [address] [place], [place] [phone] [place], [facility] [address] [place], [place] [phone] Hospital Follow-up Social History Tobacco Use Types [...] 8:42 AM EST Tc from Radha at [facility] requesting a HDF follow up appt for the patient. Tc from pt requesting a HDF appt. Hospital: [facility] Date of admission: 10/28 Discharge date: 11/04 Diagnosed: schizophrenia Disorder Please Call [facility] [place] [phone] documented in this encounter Plan of Treatment Not on file documented as of this encounter Visit Diagnoses Not on filedocumented in this encounter Additional Health Concerns Assessment Noted Time PHQ-9 Depression Total Score: 0 10/13/19 24 11:29 AM EST documented as of this encounter Care Teams Graffiti Cleaner Relationship Specialty Start Date End Date Charlotte Laureano FNP [address] [place] [address] PCP - General Family Medicine 06/09/22 Pete Shultz, SHARI [address] [place] [phone] Registered Nurse Family Medicine 06/22/25 Jacinta Bajwa 06/22/25 documented as of this encounter
--- OUTSIDE RECORDS SUMMARY | 2025-07-09 11:18 | XMS_ITS | Encounter Summary ---
Author Organization [employer] Address [address] [facility] 7t [place] [address] Care Team Providers Care Electric Sign Wirer Name Role Phone [facility] Primary Care Provider [phone] Pete Shultz RN Unavailable [phone] Jacinta Bajwa Unavailable Reason for Visit * Reason Onset Date Comments Med Refill 03/31/2024 Encounter Details Date Type Department Care Team (Late st Contact Info) Description 03/31/2024 Telephone [facility]INE [address] [place], [place] [phone] [facility] [address] [place] [address] Med Refill Social History Tobacco Use Types [...] 9:40 AM EDT Script was sent to [facility] on 02/07/24 90 day supply with 2 refills. * Telephone Encounter - Stefania Cardenas - 03/31/2024 9:25 AM EDT TC from pt requesting medication refill. Medications needing refill : metFORMIN XR (Glucophage-XR) 500 MG 24 hr tablet To be sent to: [facility] [place], [place] - [address] documented in this encounter Plan of Treatment Not on file documented as of this encounter Visit Diagnoses Not on filedocumented in this encounter Additional Health Concerns Assessment Noted Time PHQ-9 Depression Total Score: 0 12/22/19 9:02 AM EDT documented as of this encounter Care Teams Electric Sign Wirer Relationship Specialty Start Date End Date Charlotte Laureano FNP [address] [place] [address] PCP - General Family Medicine 06/09/22 Pete Shultz, RN [address] [place] [address] [place] [address] Registered Nurse Family Medicine 06/22/25 Jacinta Bajwa 06/22/25 documented as of this encounter
--- OUTSIDE RECORDS SUMMARY | 2025-07-09 11:18 | XMS_ITS | Encounter Summary ---
Author Organization [employer] Address [address] [facility] 7t [place] [address] Care Team Providers Care Internal Medicine Nurse Name Role Phone Georgi [facility] Primary Care Provider [phone] Pete Shultz RN Unavailable [phone] Jacinta Bajwa Unavailable Encounter Details Date Type Department Care Team (Late st Contact Info) Description 05/25/2024 Orders Only [facility] [address] [place] [address] Noreen Krishnamurthy, SHARI Social History Tobacco Use Types Packs/Day Years [...] documented as of this encounter Care Teams Internal Medicine Nurse Relationship Specialty Start Date End Date Charlotte Laureano FNP [address] [place] [address] PCP - General Family Medicine 06/09/22 Pete Shultz RN [address] [place] [address] Registered Nurse Family Medicine 06/22/25 Jacinta Bajwa 06/22/25 documented as of this encounter
--- OUTSIDE RECORDS SUMMARY | 2025-07-09 11:18 | XMS_ITS | Encounter Summary ---
Author Organization [employer] Address [address] [facility] 7t [place] [address] Care Team Providers Care Flat Bed Operator Name Role Phone [facility] Primary Care Provider [phone] Pete Shultz RN Unavailable [phone] Jacinta Bajwa Unavailable Reason for Visit * Reason Onset Date Comments Results 07/12/2023 Encounter Details Date Type Department Care Team ([facility] st Contact Info) Description 07/12/2023 Telephone [facility] [address] [place] [address] [facility] [address] [place], [place] [phone] Results Social History Tobacco Use Types Packs/Day [...] 11:46 AM EDT T/C to pt. Through pacific interpreters id - [id number] for below message, pt. Was informed regarding normal lipids labs. Pt. Verbally agreed and understood. * Telephone Encounter - Stefania Cardenas - 07/13/2023 4:17 PM EDT Pt calling again requesting a call in regards to results of 07/08 labs. Please contact pt at [phone] (Macanese) * Telephone Encounter - Maria De Jesus Shultz - 07/12/2023 9:14 AM EDT Tc from pt requesting a call in regards to results of 07/08 labs. Please contact pt at [phone] (Macanese) documented in this encounter Plan of Treatment Not on file documented as of this encounter Visit Diagnoses Not on filedocumented in this encounter Additional Health Concerns Assessment Noted Time PHQ-9 Depression Total Score: 0 04/27/20 9:47 AM EDT documented as of this encounter Care Teams Flat Bed Operator Relationship Specialty Start Date End Date Charlotte Laureano FNP [address] [place] [address] PCP - General Family Medicine 06/09/22 Pete Shultz RN [address] [place] [address] Registered Nurse Family Medicine 06/22/25 Jacinta Bajwa 06/22/25 documented as of this encounter
--- OUTSIDE RECORDS SUMMARY | 2025-07-09 11:18 | XMS_ITS | Encounter Summary ---
Author Organization [employer] Address [address] [facility] 7t [place] [address] Care Team Providers Care Agricultural Economics Teacher Name Role Phone [facility] Primary Care Provider [phone] Pete Shultz RN Unavailable [phone] Jacinta Bajwa Unavailable Reason for Visit * Reason Onset Date Comments Results 10/14/2023 Encounter Details Date Type Department Care Team ([facility] st Contact Info) Description 10/14/2023 Telephone [facility] MEDICINE 230 [place], [place] [phone] [facility] 230 [place], [place] [phone] Results Social History Tobacco Use Types Packs/Day [...] regards to results. Please contact pt at [phone] * Telephone Encounter - Maria De Jesus Shultz - 10/15/2023 9:06 AM EST Tc from pt calling in regards to results. Please contact pt at [phone] * Telephone Encounter - Maria De Jesus Shultz - 10/14/2023 2:43 PM EST TC from pt requesting call back regarding Results. Type of results: labs Date when done: 10/13 Facility: [facility] documented in this encounter Plan of Treatment Not on file documented as of this encounter Visit Diagnoses Not on filedocumented in this encounter Additional Health Concerns Assessment Noted Time PHQ-9 Depression Total Score: 0 10/13/19 24 11:29 AM EST documented as of this encounter Care Teams Agricultural Economics Teacher Relationship Specialty Start Date End Date Charlotte Laureano FNP [address] [place] [address] PCP - General Family Medicine 06/09/22 Pete Shultz RN [address] [place] [address] Registered Nurse Family Medicine 06/22/25 Jacinta Bajwa 06/22/25 documented as of this encounter
--- OUTSIDE RECORDS SUMMARY | 2025-07-09 11:18 | XMS_ITS | Encounter Summary ---
Author Organization [employer] Address [address] [facility] 7t [place] [address] Care Team Providers Care It Architecture Consultant Name Role Phone [facility] Primary Care Provider [phone] Pete Shultz RN Unavailable [phone] Jacinta Bajwa Unavailable Encounter Details Date Type Department Care Team ([facility] st Contact Info) Description 01/25/2024 Telephone [facility] MEDICINE 230 [place], [place] [phone] [facility] 230 [place] [address] Social History Tobacco Use Types Packs/Day Years [...] documented as of this encounter Care Teams It Architecture Consultant Relationship Specialty Start Date End Date Charlotte Laureano FNP 230 [place] [address] PCP - General Family Medicine 06/09/22 Ptee Shultz RN [address] [place] [address] Registered Nurse Family Medicine 06/22/25 Jacinta Bajwa 06/22/25 documented as of this encounter
--- OUTSIDE RECORDS SUMMARY | 2025-07-09 11:18 | XMS_ITS | Encounter Summary ---
Author Organization [employer] Address [address] [facility] 7t [place] [address] Care Team Providers Care Experimental Worker Name Role Phone Georgi [facility] Primary Care Provider [phone] Pete Shultz RN Unavailable [phone] Jacinta Bajwa Unavailable Encounter Details Date Type Department Care Team (Late st Contact Info) Description 01/19/2024 Orders Only [facility] MEDICINE 230 [place] [address] ProviderNidia MD Social History Tobacco Use Types [...] on file documented as of this encounter Procedures Procedure Name Priority Date/Time Associated Diagnosis Comments HM COLONOSCOPY Routine 07/24/2015 8:38 AM EDT documented in this encounter Results * Hm Colonoscopy (07/24/2015 8:38 AM EDT) us Historical Provider HEALTH MAINTENANCE Final Result documented in this encounter Visit Diagnoses Not on filedocumented in this encounter Additional Health Concerns Assessment Noted Time PHQ-9 Depression Total Score: 0 12/22/19 24 9:02 AM EDT documented as of this encounter Care Teams Experimental Worker Relationship Specialty Start Date End Date Charlotte Laureano FNP 230 [place] [address] PCP - General Family Medicine 06/09/22 Pete Shultz RN [address] [place] [address] Registered Nurse Family Medicine 06/22/25 Jacinta Bajwa 06/22/25 documented as of this encounter
--- OUTSIDE RECORDS SUMMARY | 2025-07-09 11:18 | XMS_ITS | Encounter Summary ---
Author Organization [employer] Address [address] [facility] 7t [place] [address] Care Team Providers Care Butt Trimmer Name Role Phone [facility] Primary Care Provider [phone] Pete Shultz RN Unavailable [phone] Jacinta Bajwa Unavailable Reason for Visit * Reason Onset Date Comments Nurse Triage 11/10/2023 Encounter Details Date Type Department Care Team ([facility] st Contact Info) Description 11/10/[address] [facility] MEDICINE 230 [place], [place] [phone] [facility] 230 [place], [place] [phone] Nurse Triage Social History Tobacco Use Types [...] 10:49 AM EST Triage attempted x2 with [employer] ID [id number] . Both call went directly to message which said voice mail box not set up yet. Unable to leave message. * Telephone Encounter - Maria eD Jesus Shultz - 11/10/2023 9:28 AM EST Symptom: Hair Loss Outcome: Schedule an appointment to be seen within 3 days Reason: This is the only possible outcome for this symptom The caller accepted this outcome Please contact pt at [phone] (indonesian) documented in this encounter Plan of Treatment Not on file documented as of this encounter Visit Diagnoses Not on filedocumented in this encounter Additional Health Concerns Assessment Noted Time PHQ-9 Depression Total Score: 0 10/13/19 24 11:29 AM EST documented as of this encounter Care Teams Butt Trimmer Relationship Specialty Start Date End Date Charlotte Laureano FNP [address] [place] [address] PCP - General Family Medicine 06/09/22 Pete Shultz, SHARI [address] [place] [address] [place] [address] Registered Nurse Family Medicine 06/22/25 Jacinta Bajwa 06/22/25 documented as of this encounter
--- OUTSIDE RECORDS SUMMARY | 2025-07-09 11:18 | XMS_ITS | Encounter Summary ---
Author Organization [employer] Address [address] [facility] 7t [place] [address] Care Team Providers Care Senior Process Analyst Name Role Phone [facility] Primary Care Provider [phone] Pete Shultz RN Unavailable [phone] Jacinta Bajwa Unavailable Reason for Visit * Reason Onset Date Comments Referral 12/31/2023 Encounter Details Date Type Department Care Team ([facility] st Contact Info) Description 12/31/2023 Telephone [facility] MEDICINE 230 [place], [place] [phone] [facility] 230 [place], [place] [phone] Referral Social History Tobacco Use Types Packs/Day [...] a referral to the vision center at [facility]. A referral had been placed on 05/20/23 to [facility] eyecare for a history of glaucoma. Pt needs a new referral placed. Forwarding to provider * Telephone Encounter - Cami Workman - 12/31/2023 9:47 AM EDT TC from pt requesting new referral to vision center . Location: [facility] Address: [address] [place] [address] documented in this encounter Plan of Treatment Not on file documented as of this encounter Visit Diagnoses Not on filedocumented in this encounter Additional Health Concerns Assessment Noted Time PHQ-9 Depression Total Score: 0 12/22/19 24 9:02 AM EDT documented as of this encounter Care Teams Senior Process Analyst Relationship Specialty Start Date End Date Charlotte Laureano FNP [address] [place] [address] PCP - General Family Medicine 06/09/22 Pete Shultz, RN [address] [place] [address] Registered Nurse Family Medicine 06/22/25 Jacinta Bajwa 06/22/25 documented as of this encounter
--- OUTSIDE RECORDS SUMMARY | 2025-07-09 11:18 | XMS_ITS | Encounter Summary ---
Author Organization [employer] Address 75 [facility] 7t [place] [address] Care Team Providers Care Platform Engineer Name Role Phone [facility] Primary Care Provider [phone] Pete Shultz RN Unavailable Jacinta Bajwa Unavailable Encounter Details Date Type Department Care Team ([facility] Contact Info) Description 07/27/2024 Telephone [facility] MEDICINE 230 [place], [place] [phone] [facility] 230 [place] [address] Social History Tobacco Use Types Packs/Day Years [...] documented as of this encounter Care Teams Platform Engineer Relationship Specialty Start Date End Date Charlotte Laureano FNP 230 [place] [address] PCP - General Family Medicine 06/09/22 Pete Shultz RN [address] [place] [address] Registered Nurse Family Medicine 06/22/25 Jacinta Bajwa 06/22/25 documented as of this encounter
--- OUTSIDE RECORDS SUMMARY | 2025-07-09 11:18 | XMS_ITS | Encounter Summary ---
Author Organization [employer] Address [address] [facility] 7t [place] [address] Care Team Providers Care Nursing Home Physician Name Role Phone [facility] Primary Care Provider [phone] Pete Shultz RN Unavailable [phone] Jacinta Bajwa Unavailable Reason for Visit * Reason Onset Date Comments Referral Letter 02/21/2025 Encounter Details Date Type Department Care Team ([facility] st Contact Info) Description 02/21/2025 Telephone [facility] MEDICINE 230 [place], [place] [phone] [facility] 230 [place], [place] [phone] Referral Letter Social History Tobacco Use Types [...] be sent via mail. Referral: Neurology - [address] [place] [address] [place] [address] Pt states is unable to get (type) [...] documented as of this encounter Care Teams Nursing Home Physician Relationship Specialty Start Date End Date Charlotte Laureano FNP [address] [place] [address] PCP - General Family Medicine 06/09/22 Pete Shultz RN [address] [place] [address] Registered Nurse Family Medicine 06/22/25 Jacinta Bajwa 06/22/25 documented as of this encounter
--- OUTSIDE RECORDS SUMMARY | 2025-07-09 11:18 | XMS_ITS | Encounter Summary ---
Author Organization [employer] Address [address] [facility] 7t [place] [address] Care Team Providers Care Senior Marketing Manager Name Role Phone [facility] Primary Care Provider [phone] Pete Shultz RN Unavailable [phone] Jacinta Bajwa Unavailable Reason for Visit * Reason Onset Date Comments Lab Orders 11/23/2022 Encounter Details Date Type Department Care Team (Late st Contact Info) Description 11/23/[address] [facility] MEDICINE 230 [place] [address] [facility] 230 [place] [address] Lab Orders Social History Tobacco Use Types [...] blood work order Please contact pt at [phone] documented in this encounter Plan of Treatment Not on file documented as of this encounter Visit Diagnoses Not on filedocumented in this encounter Additional Health Concerns Assessment Noted Time PHQ-9 Depression Total Score: 0 11/13/19 23 1:38 PM EST documented as of this encounter Care Teams Senior Marketing Manager Relationship Specialty Start Date End Date Charlotte Laureano FNP [address] [place] [address] PCP - General Family Medicine 06/09/22 Pete Shultz RN [address] [place] [address] Registered Nurse Family Medicine 06/22/25 Jacinta Bajwa 06/22/25 documented as of this encounter
--- OUTSIDE RECORDS SUMMARY | 2025-07-09 11:18 | XMS_ITS | Encounter Summary ---
Author Organization [employer] Address [address] [facility] 7t [place] [address] Care Team Providers Care Oracle Database Architect Name Role Phone [facility] Primary Care Provider [phone] Pete Shultz RN Unavailable [phone] Jacinta Bajwa Unavailable Reason for Visit * Reason Onset Date Comments Nurse Triage 11/09/2023 Encounter Details Date Type Department Care Team ([facility] st Contact Info) Description 11/09/2023 Telephone [facility] MEDICINE 230 [place], [place] [phone] [facility] 230 [place], [place] [phone] Nurse Triage Social History Tobacco Use Types [...] documented as of this encounter Care Teams Oracle Database Architect Relationship Specialty Start Date End Date Charlotte Laureano FNP [address] [place] [address] PCP - General Family Medicine 06/09/22 Pete Shultz RN [address] [place] [address] [place] [address] Registered Nurse Family Medicine 06/22/25 Jacinta Bajwa 06/22/25 documented as of this encounter
--- OUTSIDE RECORDS SUMMARY | 2025-07-09 11:18 | XMS_ITS | Encounter Summary ---
Author Organization [employer] Address 75 [facility] 7t [place] [address] Care Team Providers Care Production Designer Name Role Phone [facility] Primary Care Provider [phone] Pete Shultz RN Unavailable [phone] Jacinta Bajwa Unavailable Reason for Visit * Reason Onset Date Comments Med Refill 03/20/2024 Encounter Details Date Type Department Care Team (Late st Contact Info) Description 03/20/2024 Telephone [facility] MEDICINE 230 [place] [address] [facility] 230 [place] [address] Med Refill Social History Tobacco Use Types [...] 9:31 AM EDT Medication was sent to [facility] on 02/07/24 #180 with 2 refills. * Telephone Encounter - Stefania Cardenas - 03/20/2024 9:23 AM EDT TC from pt requesting medication refill. Medications needing refill : metFORMIN XR (Glucophage-XR) 500 MG 24 hr tablet To be sent to: [facility] - [place], [place] - 230 [facility] documented in this encounter Plan of Treatment Not on file documented as of this encounter Visit Diagnoses Not on filedocumented in this encounter Additional Health Concerns Assessment Noted Time PHQ-9 Depression Total Score: 0 12/22/19 9:02 AM EDT documented as of this encounter Care Teams Production Designer Relationship Specialty Start Date End Date Charlotte Laureano FNP 230 [facility] [place] [address] PCP - General Family Medicine 06/09/22 Pete Shultz, SHARI [address] [place] [address] [place] [address] Registered Nurse Family Medicine 06/22/25 Jacinta Bajwa 06/22/25 documented as of this encounter
--- OUTSIDE RECORDS SUMMARY | 2025-07-09 11:18 | XMS_ITS | Encounter Summary ---
Author Organization [employer] Address 75 [facility] 7t [place] [address] Care Team Providers Care Executive Housekeeper Name Role Phone [facility] Primary Care Provider [phone] Pete Shultz RN Unavailable [phone] Jacinta Bajwa Unavailable Reason for Visit * Reason Onset Date Comments Results 11/17/2023 Encounter Details Date Type Department Care Team ([facility] st Contact Info) Description 11/17/2023 Telephone [facility] MEDICINE 230 [place], [place] [phone] [facility] 230 [place], [place] [phone] Results Social History Tobacco Use Types Packs/Day [...] a PAP smear. Please contact pt at [phone] * Telephone Encounter - Dony Hanson - [...] documented as of this encounter Care Teams Executive Housekeeper Relationship Specialty Start Date End Date [place], Charlotte, PLATE GRAINER APPRENTICE 230 [place] [address] PCP - General Family Medicine 06/09/22 Pete Shultz, SHARI [address] [place] [address] Registered Nurse Family Medicine 06/22/25 Jacinta Bajwa 06/22/25 documented as of this encounter
--- OUTSIDE RECORDS SUMMARY | 2025-07-09 11:18 | XMS_ITS | Encounter Summary ---
Author Organization [employer] Address [address] [facility] 7t [place] [address] Care Team Providers Care Cargo Broker Name Role Phone [facility] Primary Care Provider Pete Shultz RN Unavailable [phone] Jacinta Bajwa Unavailable Reason for Visit * Reason Onset Date Comments call back 11/26/2022 Encounter Details Date Type Department Care Team (Late st Contact Info) Description 11/26/2022 Telephone [facility] MEDICINE 230 [place] [address] [facility] 230 [place] [address] call back Social History Tobacco Use Types [...] AM EST TC returned to pt at [phone], utilizing [place] Mechanical Reliability Engineer ID:[id number], regarding message belowper [facility]. Pt informed labs show high cholesterol [...] she can obtain copy of labs at [facility] Medical Records in basement. Pt verbalized understanding. Pt to F/U as needed. ----- Message from [facility] sent at 11/26/2022 8:44 AM [...] documented as of this encounter Care Teams Cargo Broker Relationship Specialty Start Date End Date [facility] 230 [place] [address] PCP - General Family Medicine 06/09/22 Pete Shultz, SHARI [address] [place] [address] Registered Nurse Family Medicine 06/22/25 Jacinta Bajwa 06/22/25 documented as of this encounter
--- OUTSIDE RECORDS SUMMARY | 2025-07-09 11:18 | XMS_ITS | Encounter Summary ---
Author Organization [employer] Address 75 [facility] 7t [place] [address] Care Team Providers Care Distribution Field Engineer Name Role Phone [facility] Primary Care Provider Pete Shultz RN Unavailable [phone] Jacinta Bajwa Unavailable Reason for Visit * Reason Onset Date Comments Lab Orders 11/16/2022 Encounter Details Date Type Department Care Team (Late st Contact Info) Description 11/16/2022 Telephone [facility] MEDICINE 230 [place] [address] [facility] 230 [place] [address] Lab Orders Social History Tobacco Use Types [...] blood work order Please contact pt at [phone] documented in this encounter Plan of Treatment Not on file documented as of this encounter Visit Diagnoses Not on filedocumented in this encounter Additional Health Concerns Assessment Noted Time PHQ-9 Depression Total Score: 0 11/13/19 23 1:38 PM EST documented as of this encounter Care Teams Distribution Field Engineer Relationship Specialty Start Date End Date Charlotte Laureano FNP [address] [place] [address] PCP - General Family Medicine 06/09/22 Pete Shultz RN [address] [place] [address] Registered Nurse Family Medicine 06/22/25 Jacinta Bajwa 06/22/25 documented as of this encounter
--- OUTSIDE RECORDS SUMMARY | 2025-07-09 11:18 | XMS_ITS | Encounter Summary ---
Author Organization [employer] Address [address] [facility] 7t [place] [address] Care Team Providers Care Naphthalene Operator Helper Name Role Phone [facility] Primary Care Provider [phone] Pete Shultz RN Unavailable [phone] Jacinta Bajwa Unavailable Reason for Visit * Reason Onset Date Comments Lab Orders 12/07/2022 Encounter Details Date Type Department Care Team ([facility] st Contact Info) Description 12/07/2022 Telephone [facility] MEDICINE 230 [place] [address] [facility] 230 [place] [address] Lab Orders Social History Tobacco Use Types [...] documented as of this encounter Care Teams Naphthalene Operator Helper Relationship Specialty Start Date End Date Georgi, DAO Porter 230 [place] [address] PCP - General Family Medicine 06/09/22 Pete Shultz RN [address] [place] [address] Registered Nurse Family Medicine 06/22/25 Jacinta Bajwa 06/22/25 documented as of this encounter
[2025-07-09 11:27] LABS: Appearance Urine Clear; Glucose Urine UA Negative (Negative); PH 6.0 (5.0-9.0); Specific Gravity - Urine 1.025 (1.005-1.025); UMIC TRIGGER UACC YES
[2025-07-09 11:33] LABS: Hematocrit 44.4 % (37.0-47.0); Hemoglobin 14.6 g/dl (12.0-16.0); Imm Gran Abs Auto 0.03 X10*3/uL (0.00-0.03); Imm Gran Pct Auto 0.4 % (0.0-0.4); Lymphocytes Absolute Auto 1.8 X10*3/uL (1.2-4.9); Mean Corpuscular HGB Conc 32.9 g/dl (31.0-35.0); Mean Corpuscular Hemoglobin 28.9 pg (27.0-33.0); Mean Corpuscular Volume 87.9 fL (80.0-98.0); NRBC Abs Auto 0.000 X10*3/uL (0.0-0.012); NRBC Pct Auto 0.0 /100WBC (0.0-0.2); Platelet Count 267 X10*3/uL (160-400); Red Blood Count 5.05 X10*6/uL (4.20-5.50); White Blood Count 8.1 X10*3/uL (4.8-10.8)
[2025-07-09 12:01] LABS: UACC Culture Trigger YES
[2025-07-09 12:05] LABS: Cholesterol 153 mg/dL (<200); HDL Cholesterol 60 mg/dL (>40); Triglycerides 112 mg/dL (<150)
[2025-07-09 12:57] LABS: Folate 5.7 ng/mL (> or = 4.0); Vitamin B12 570 pg/mL (200-900)
[2025-07-10 04:46] LABS: Bacterial Vaginosis PCR POSITIVE (Negative); Candida Group PCR DETECTED (Not Detect); Candida glab krusei PCR NOT DETECTED (Not Detect); Trichomonas vaginalis PCR NOT DETECTED (Not Detect)
[2025-07-10 05:16] LABS: CT PCR NOT DETECTED (Not Detect.); NG PCR NOT DETECTED (Not Detect.)
== END 2025-07-09 10:07 | disposition home or self-care (01) ==
LOC: HO.HHCL 10:06
PROVIDERS: PCP Registered Nurse; Visit Provider Registered Nurse
DX: R00.0 Tachycardia, unspecified (principal); R30.0 Dysuria; E78.2 Mixed hyperlipidemia
CPT/HCPCS: 36415; 80061; 81001; 81515; 82607; 82746; 84443; 85025; 87086; 87491; 87591

== ENCOUNTER 2025-08-03 09:36 | Outpatient (REF) | payer MEDICAID, SELFPAY ==
--- NOTE | ~2025-08-03 | US_ITS ---
EXAMINATION: US RETROPERITONEAL LIMITED (RENAL ONLY) CLINICAL INFORMATION: Calculus of kidney. COMPARISON: April 10, 2024. TECHNIQUE: Real-time ultrasound kidneys using grayscale technique with a curvilinear transducer. FINDINGS: RIGHT KIDNEY: 11 x 5 x 4 cm (SAG x AP x TRV). Volume: 114 cc. Normal echotexture. Renal cortical thickness is normal. No hydronephrosis. No solid lesion. There is a 1.1 cm anechoic lesion at the corticomedullary junction of the upper pole without septations or nodular components. LEFT KIDNEY: 10 x 4 x 4 cm (SAG x AP x TRV). Volume: 86 cc. Normal echotexture. Renal cortical thickness is normal. No hydronephrosis. No solid lesion. There is a 1.2 cm well-defined anechoic lesion at the renal cortex of the midportion without septations or nodular components. US/US renal BI IMPRESSION: Bilateral renal cysts. No hydronephrosis.. Electronically signed by: Prince Macdonald MD 08/03/2025 11:21 AM EDT
== END 2025-08-03 09:37 | disposition home or self-care (01) ==
LOC: HO.US 09:36
PROVIDERS: PCP Registered Nurse; Visit Provider Nurse Practitioner Family
DX: N20.0 Calculus of kidney (principal); N28.1 Cyst of kidney, acquired
CPT/HCPCS: 76775

== ENCOUNTER → 2025-08-03 09:39 | Outpatient (BNV) | payer MEDICAID, SELFPAY | PROVIDERS: PCP Registered Nurse; Visit Provider Radiology Diagnostic Radiology | DX: N20.0 Calculus of kidney (principal) | CPT/HCPCS: 76775 ==

== ENCOUNTER 2025-08-04 09:13 | Emergency (ER) | payer MEDICAID, SELFPAY ==
--- NOTE | ~2025-08-04 | XR_ITS ---
CLINICAL HISTORY: chest pain 2 view chest x-ray. Comparison: None Findings: The lungs are adequately expanded. No focal consolidation. No effusion or pneumothorax. Cardiac and mediastinal contours are within normal limits. No acute osseous abnormality Impression: No acute process. This document has been electronically signed by: Ruben Snow MD on 08/04/2025 12:33:14
[2025-08-04 09:17] VITALS: BP 91/75; PULSE 112; RESP 20; TEMP 36.1; O2SAT 95; BMI 26.6
--- NOTE | 2025-08-04 09:30 | ECG_ITS ---
Test Reason : chest pain Blood Pressure : */* mmHG Vent. Rate : 122 BPM Atrial Rate : 122 BPM P-R Int : 88 ms QRS Dur : 70 ms QT Int : 420 ms P-R-T Axes : 42 58 77 degrees QTcB Int : 598 ms Sinus tachycardia with short AR T wave abnormality, consider lateral ischemia Abnormal ECG When compared with ECG of 21-Jun-2025 11:57, AR interval has decreased T wave inversion now evident in Lateral leads Referred By: Alessandra Moreno Electronically Signed By: FADI CLINTON MD
[2025-08-04 09:48] LABS: MANUAL DIFF FLAG NO
[2025-08-04 09:49] LABS: Hematocrit 45.1 % (37.0-47.0); Hemoglobin 15.2 g/dl (12.0-16.0); Imm Gran Abs Auto 0.02 X10*3/uL (0.00-0.03); Imm Gran Pct Auto 0.2 % (0.0-0.4); Lymphocytes Absolute Auto 2.1 X10*3/uL (1.2-4.9); Mean Corpuscular HGB Conc 33.7 g/dl (31.0-35.0); Mean Corpuscular Hemoglobin 28.8 pg (27.0-33.0); Mean Corpuscular Volume 85.6 fL (80.0-98.0); NRBC Abs Auto 0.000 X10*3/uL (0.0-0.012); NRBC Pct Auto 0.0 /100WBC (0.0-0.2); Platelet Count 276 X10*3/uL (160-400); Red Blood Count 5.27 X10*6/uL (4.20-5.50); White Blood Count 8.6 X10*3/uL (4.8-10.8)
[2025-08-04 10:01] VITALS: BP 137/82; PULSE 114; RESP 16; O2SAT 97
[2025-08-04 10:04] LABS: Alanine Aminotransferase 24 U/L (0-31); Albumin Level 5.0 g/dL (3.5-5.0); Alkaline Phosphatase 100 U/L (39-117); Anion Gap 16 (12-20); Aspartate Amino Transferase 35 U/L (5-31); Blood Urea Nitrogen 5 mg/dL (9-16); Calcium 10.0 mg/dL (8.4-10.2); Carbon Dioxide 26 mmol/L (22-29); Chloride 104 mmol/L (96-108); Creatinine Clr Calc Pharmacy 85.2; Estimated Glomerular Filt Rate > 60; Potassium 4.1 mmol/L (3.3-5.1); Sodium 142 mmol/L (135-145); Total Protein 7.6 g/dL (6.5-8.0)
[2025-08-04 10:12] LABS: Troponin-I High Sensitivity < 2.7 ng/L (<3.5-17.0)
[2025-08-04 10:13] LABS: COVID-19 Test Negative (Negative); IDNOW Serial# 08D9AD1C; IDNOW Serial# 58CA691E; Strep A Nucleic Acid Negative (Negative)
[2025-08-04 10:19] LABS: IDNOW Serial# 55D5AD1C; Influenza B2 Negative (Negative)
--- NOTE | 2025-08-04 10:58 | ED.FALL ---
HPI - Fall General Chief Complaint: Fall Stated Complaint: fall all over pain Time Seen by Provider: 08/04/25 10:57 Source: patient Limitations: no limitations History of Present Illness ED Provider: Dr. Yasir Bardales HPI Narrative: 60-year-old female with a history of schizophrenia-paranoid type, paranoid delusions, anxiety, hypercholesterolemia, tardive dyskinesia, kidney stones who presents emergency department of multiple complaints. Patient states that 1 week prior to evaluation she was walking from her bathroom to her kitchen, tripped on her shoe and fell to her knees and hands. She denied any head injury. She states that since that time she has not been feeling well. She states over the last 2 days she has been having intermittent dizziness which she describes as a room spinning sensation. She has had diffuse body aches and a pruritic sensation throughout her body. She complains of throat and bilateral ear pain. Patient denied fever but states she has had chills. She has had watery rhinorrhea and a nonproductive cough. She denied nausea, vomiting, diarrhea. She states she is having intermittent abdominal pain, points to her lower abdomen and describes it as a sharp pain that will last sec to minutes. Related Data Home Medications ?Medication ?Instructions ?Recorded ?Confirmed doxepin 25 mg capsule 25 - 50 mg PO BEDTIME 04/28/24 01/01/25 nortriptyline 25 mg capsule 25 mg PO BEDTIME 07/26/24 01/01/25 haloperidol 5 mg tablet 5 mg PO QAM 01/16/25 haloperidol 10 mg tablet 10 mg PO BEDTIME 02/13/25 Previous Rx's ?Medication ?Instructions ?Recorded atorvastatin 80 mg tablet 1 tab PO BEDTIME 30 days #30 tabs 11/04/23 cholecalciferol (vitamin D3) 50 1 cap PO DAILY 30 days #30 caps 11/04/23 mcg (2,000 unit) capsule clonazepam 1 mg tablet 1 tab PO BEDTIME PRN anxiety 30 11/04/23 days #30 tabs lithium carbonate 450 mg 450 mg PO BID 30 days #60 tabs 11/04/23 tablet,extended release metformin 500 mg tablet,extended 500 mg PO QPM 30 days #30 tabs 11/04/23 release 24 hr multivitamin 1 tab PO DAILY 30 days #30 tabs 11/04/23 pyridoxine (vitamin B6) 100 mg 100 mg PO DAILY 90 days #90 tabs 11/04/23 tablet docusate sodium 100 mg capsule 100 mg PO BEDTIME #90 caps 04/28/24 bisacodyl 5 mg tablet,delayed 10 mg (2 x 5 mg) PO BEDTIME #180 07/26/24 release (Dulcolax (bisacodyl)) tabs benztropine 0.5 mg tablet 0.5 mg PO BID #180 tabs 06/19/25 hydroxyzine HCl 25 mg tablet 25 mg PO TID PRN itching #10 tabs 08/04/25 Allergies Allergy/AdvReac Type Severity Reaction Status Date / Time naproxen AdvReac Unknown Verified 08/04/25 09:21 Review of Systems Review of Systems: Yes all other systems are reviewed and are negative [facility] Past Medical History [facility] Narrative: Social history: She denies tobacco, alcohol and drug use. Medical History (Updated 08/04/25 @ 11:31 by Yasri Bardales MD) Schizophrenia, paranoid type Paranoid delusion Renal cyst Anxiety Elevated cholesterol Occasional tremors Surgical History Hx of colonoscopy Hx of section Hx of tubal ligation Social History Social History Household Members: None Housing: Apartment Do you presently have visiting nurse or other home services: No Alcohol intake: never Patient Tobacco Use Status: Never used Tobacco Tobacco use type: Cigarette Smoked in Last 30 Days: No e-Cigarette/Vaping Use: Former Use Second Hand Smoke Exposure: No Use of substances other than those prescribed or required for medical reasons: No Substance Use Type: Caffiene Advance Directives: No Advance Directives Information Provided: No Do you have a plan to hurt others: No Plan Patient : No service: No Sexual orientation: Straight/Heterosexual Physical Exam Vital Signs: Vital Signs: Last Vital Signs Temp 97 F 08/04/25 09:17 Pulse 114 H 08/04/25 10:01 Resp 16 08/04/25 10:01 BP 137/82 08/04/25 10:01 Pulse Ox 97 08/04/25 10:01 O2 Del Method Room Air 08/04/25 10:01 BMI result Body Mass Index 26.6 Vital signs were normal Exam: General: Awake, alert in no distress Head: Normocephalic, atraumatic EENT: PERRL, sclera and conjunctiva are normal, mouth with no erythema or exudates, tympanic membranes were normal, no tenderness palpation of the external auditory canal or pinna Neck: Supple, no adenopathy Lung: breath sounds symmetric, no wheezing, no rales and no rhonchi Chest: symmetric movement, nontender Heart: regular rate and rhythm, normal S1, S2 no murmurs or rubs Abdomen: soft, non-tender, nondistended, normal bowel sounds Back: no vertebral tenderness, no CVAT Extremities: no deformities, moves all extremities symmetrically, no edema Neuro: Awake, alert, oriented, normal speech, cranial nerves 2-12 intact, moves all extremities symmetrically Psych: Pleasant, cooperative Medical Decision Making Medical Decision Making MDM Narrative: 60-year-old female with a history of schizophrenia-paranoid type, paranoid delusions, anxiety, hypercholesterolemia, tardive dyskinesia, kidney stones who presents emergency department of multiple complaints. Patient states that 1 week prior to evaluation she was walking from her bathroom to her kitchen, tripped on her shoe and fell to her knees and hands. She denied any head injury. She states that since that time she has not been feeling well. She states over the last 2 days she has been having intermittent dizziness which she describes as a room spinning sensation. She has had diffuse body aches and a pruritic sensation throughout her body. She complains of throat and bilateral ear pain. Patient denied fever but states she has had chills. She has had watery rhinorrhea and a nonproductive cough. She denied nausea, vomiting, diarrhea. She states she is having intermittent abdominal pain, points to her lower abdomen and describes it as a sharp pain that will last sec to minutes. Vital signs revealed an elevated pulse of 112 otherwise unremarkable. Exam was unremarkable. Differential diagnosis: ?Includes but is not limited to viral syndrome, COVID-19, influenza, pneumonia, myocardial infarction, myocardial ischemia, otitis media, strep throat, anemia, electrolyte abnormality Course: 11:38 My interpretation patient's laboratory evaluation as follows: CBC was normal. CMP was unremarkable. High sensitive troponin I was below detectable limits. COVID and influenza tests were negative. Chest x-ray revealed no acute pneumonia. Twelve EKG was unremarkable. Patient's presentation, evaluation in physical exam are consistent with a viral syndrome and I did discuss this with the patient. The patient was given hydroxyzine hydrochloride 25 mg orally for pruritus. Patient was advised to take this 3 times a day as needed for pruritus. She was also advised to continue taking her Tylenol 1000 mg every 6 hours as needed for pain and fever. She was given printed and and verbal instructions and discharged home. Differential Diagnosis Differential Diagnoses: The differential diagnosis associated with the presentation includes (See above) Admission/Observation Consideration of admission/observation: Escalation of care including admission/observation considered (Yes) Lab Data MDM Lab Attestation statement: I reviewed the patient's lab results. 08/04/25 09:41 08/04/25 09:41 Labs: Lab Results 08/04/25 Range/Units 09:41 WBC 8.6 (4.8-10.8) X10*3/uL RBC 5.27 (4.20-5.50) X10*6/uL Hgb 15.2 (12.0-16.0) g/dl Hct 45.1 (37.0-47.0) % MCV 85.6 (80.0-98.0) fL MCH 28.8 (27.0-33.0) pg MCHC 33.7 (31.0-35.0) g/dl RDW 12.6 (11.0-16.0) % Plt Count 276 (160-400) X10*3/uL MPV 9.8 (9.4-12.3) fL Immature Gran % (Auto) 0.2 (0.0-0.4) % Neut % (Auto) 65.1 (45-73) % Lymph % (Auto) 24.5 (20-40) % Boyle % (Auto) 8.3 (2-11) % Eos % (Auto) 1.4 (0-4) % Baso % (Auto) 0.5 (0-2) % Lymph # (Auto) 2.1 (1.2-4.9) X10*3/uL Boyle # (Auto) 0.7 (0.1-1.2) X10*3/uL Eos # (Auto) 0.1 (0.0-0.4) X10*3/uL Baso # (Auto) 0.0 (0.0-0.2) X10*3/uL Abs Immat Gran (auto) 0.02 (0.00-0.03) X10*3/uL Absolute Neuts (auto) 5.6 (2.0-8.3) x10*3/uL Absolute Nucleated RBC 0.000 (0.0-0.012) X10*3/uL Nucleated RBC % (auto) 0.0 (0.0-0.2) /100WBC Sodium 142 (135-145) mmol/L Potassium 4.1 (3.3-5.1) mmol/L Chloride 104 (96-108) mmol/L Carbon Dioxide 26 (22-29) mmol/L Anion Gap 16 (12-20) BUN 5 L (9-16) mg/dL Creatinine 0.65 (0.5-1.4) mg/dL Estim Creat Clear Calc 85.2 Estimated GFR > 60 Random Glucose 111 (60-115) mg/dL Calcium 10.0 (8.4-10.2) mg/dL Total Bilirubin 0.5 (0.0-1.0) mg/dL AST 35 H (5-31) U/L ALT 24 (0-31) U/L Alkaline Phosphatase 100 (39-117) U/L Troponin I High Sens < 2.7 (<3.5-17.0) ng/L Total Protein 7.6 (6.5-8.0) g/dL Albumin 5.0 (3.5-5.0) g/dL COVID-19 ([facility]BREEN) Negative (Negative) COVID-19 Clin Com See Note Influenza Type A ([facility]) Negative (Negative) Influenza Type B ([facility]) Negative (Negative) Influenza A & B Note See Note S. pyogenes GrpA [facility] Negative (Negative) Independent Interpretation I performed an independent interpretation of an: EKG and Plain X-Ray Interpretation: My interpretation patient's 12 EKG done on 08/04/2025 at 09:34 hours is as follows: Sinus tachycardia with a rate of 122, no ST segment elevation, no ST segment depression, no significant T-wave abnormalities, no PACs, no PVCs. Compared to EKG dated 06/21/2025 at 11:57 hours, the tachycardia is new. My interpretation patient's chest x-ray is as follows: No acute disease. Radiology Impression Discussion of test interpretation with radiology: I have reviewed the radiologist's reading. Prescription Management Antipyretic: Hydroxyzine Chronic Conditions Patient?s care impacted by: Other (Schizophrenia, paranoid type. Anxiety) Discharge Plan Discharge Clinical Impression: Viral syndrome, Pruritus Patient Disposition: Home, Self-Care Additional Instructions: Your blood work was normal. The chest x-ray revealed no evidence of pneumonia. Your COVID and influenza tests were negative. Your symptoms are consistent with a virus. Your body will fight off this virus. Take hydroxyzine 25 mg pills, 1 pill 3 times a day as needed for itchiness. Take Tylenol (acetaminophen) 500 mg pills, 2 pills every 6 hours as needed for pain or fever. Continue taking your other medications as prescribed by your providers. Follow-up with your doctor in 2 days. Please return to the emergency department if your symptoms get worse or if you develop any symptoms that are concerning to you. Prescriptions: New hydroxyzine HCl 25 mg tablet 25 mg PO TID PRN (Reason: itching) Qty: 10 0RF No Action lithium carbonate 450 mg Tablet Extended Release 450 mg PO BID 30 Days Qty: 60 0RF multivitamin Tablet 1 tab PO DAILY 30 Days Qty: 30 0RF atorvastatin 80 mg tablet 1 tab PO BEDTIME 30 Days Qty: 30 0RF clonazepam 1 mg tablet 1 tab PO BEDTIME PRN (Reason: anxiety) 30 Days Qty: 30 0RF pyridoxine (vitamin B6) 100 mg tablet 100 mg PO DAILY 90 Days Qty: 90 3RF metformin 500 mg tablet extended release 24 hr 500 mg PO QPM 30 Days Qty: 30 0RF cholecalciferol (vitamin D3) 50 mcg (2,000 unit) capsule 1 cap PO DAILY 30 Days Qty: 30 0RF doxepin 25 mg capsule 25 - 50 mg PO BEDTIME docusate sodium 100 mg capsule 100 mg PO BEDTIME Qty: 90 3RF nortriptyline 25 mg capsule 25 mg PO BEDTIME bisacodyl [Dulcolax (bisacodyl)] 5 mg tablet,delayed release (DR/EC) 10 mg PO BEDTIME Qty: 180 4RF haloperidol 5 mg tablet 5 mg PO QAM haloperidol 10 mg tablet 10 mg PO BEDTIME benztropine 0.5 mg tablet 0.5 mg PO BID Qty: 180 1RF Print Language: [place]
[2025-08-04 11:54] VITALS: BP 137/82; PULSE 114; RESP 16; TEMP 36.7; O2SAT 97
== END 2025-08-04 11:54 | disposition home or self-care (01) ==
PROVIDERS: Physician Assistant Medical; Emergency Provider Emergency Medicine Emergency Medical Services; PCP Registered Nurse
DX: B34.9 Viral infection, unspecified (principal); R07.9 Chest pain, unspecified; J02.9 Acute pharyngitis, unspecified; H92.03 Otalgia, bilateral; L29.9 Pruritus, unspecified; Z03.818 Encounter for observation for suspected exposure to other biological agents ruled out
CPT/HCPCS: 71046; 80053; 84484; 85025; 87502; 87635; 87651; 93005; 99284; 99285

== ENCOUNTER → 2025-08-04 09:30 | Outpatient (BNV) | payer MEDICAID, SELFPAY | PROVIDERS: Emergency Provider Emergency Medicine Emergency Medical Services; PCP Registered Nurse; Visit Provider Internal Medicine Cardiovascular Disease | DX: R00.0 Tachycardia, unspecified (principal) | CPT/HCPCS: 93010 ==

== ENCOUNTER → 2025-08-04 09:30 | Outpatient (BNV) | payer MEDICAID, SELFPAY | PROVIDERS: Emergency Provider Emergency Medicine Emergency Medical Services; PCP Registered Nurse; Visit Provider Radiology Vascular & Interventional Radiology | DX: R07.9 Chest pain, unspecified (principal) | CPT/HCPCS: 71046 ==

== ENCOUNTER 2025-08-29 12:27 | Outpatient (REF) | payer MEDICAID, SELFPAY ==
--- NOTE | ~2025-08-29 | MM_ITS ---
EXAMINATION: MM DIAGNOSTIC DIGITAL BREAST TOMOSYNTHESIS, BILATERAL CLINICAL INFORMATION: Patient had prior bilateral diffuse breast pain for one week. Patient does not have pain today. Patient never had focal pain. COMPARISON: Mammography: Comparison is made with relevant prior exams. TECHNIQUE: Digital breast mammography with tomosynthesis is performed in both the craniocaudal and mediolateral oblique views along with computer-aided detection (CAD). FINDINGS: There are scattered areas of fibroglandular density. Right marker clip from previous benign needle core biopsy. There are no significant masses, abnormal calcifications, or other abnormalities. Results are provided to the patient at time of visit by the technologist. MM/MM tomosynthesis diagnostic BI IMPRESSION: No mammographic evidence of malignancy. No mammographic abnormal finding to account for the patient's bilateral diffuse breast pain bilateral breasts. If patient has focal pain in the future a diagnostic ultrasound can be ordered and performed. ASSESSMENT: BI-RADS Category 2: Benign RECOMMENDATION: 1 year F/U This patient's information was entered into a reminder system with a target due date for their next mammogram. Electronically signed by: Val Baker DO 08/29/2025 02:11 PM LEYLA
== END 2025-08-29 12:28 | disposition home or self-care (01) ==
LOC: HO.MAMMO 12:27
PROVIDERS: PCP Registered Nurse; Visit Provider Nurse Practitioner Family
DX: N64.4 Mastodynia (principal)
CPT/HCPCS: 77062; 77066

== ENCOUNTER → 2025-08-29 13:30 | Outpatient (BNV) | payer MEDICAID, SELFPAY | PROVIDERS: PCP Registered Nurse; Visit Provider Internal Medicine | DX: N64.4 Mastodynia (principal) | CPT/HCPCS: 77062; 77066 ==

== ENCOUNTER → 2025-08-30 13:38 | Outpatient (REF) | payer MEDICAID, SELFPAY ==
--- OUTSIDE RECORDS SUMMARY | 2025-07-09 08:00 | XMS_ITS | Encounter Summary ---
Author Organization [email or web address] Address [address] [place] [address] [address] [place] [address] Care Team Providers Care Lead Fabricator Name Role Phone Charlotte Montenegro [facility] Primary Care Provider [phone] Pete Shultz RN Unavailable [phone] Jacinta Bajwa Unavailable Reason for Referral * Imaging (Routine) - Authorized Specialty Diagnoses / Procedures Referred By Priya t Referred To Contact Cardiology Diagnoses Tachycardia Procedures Transthoracic Echo (TTE) Complete Charlotte Montenegro [facility] [address] [place] [address] Phone: tel: fax: [address] Phone: tel: fax: Referral ID Status Reason Start Date Expiration Date Visits Requested Visits Authorized [id number] Authorized Perform Procedure 07/09/2025 07/09/2026 1 1 * Cardiology (Routine) - Authorized Specialty Diagnoses / Procedures Referred By Contac t Referred To Contact Cardiology Diagnoses Tachycardia Procedures Holter monitor - 24 hour Charlotte Montenegro [facility] [address] [place] [address] Phone: tel: fax: [address] Phone: tel: fax: Referral ID Status Reason Start Date Expiration Date V isits Requested Visits Authorized [id number] Authorized 07/09/2025 07/09/2026 1 1 Reason for Visit * Reason Comments Follow-up Encounter Details Date Type Department Care Team (Latest Contact Info) Description 07/09/2025 9:00 AM EDT Office Visit [facility] [address] [place], [place] [phone] Charlotte Montenegro FNP [address] [place], [place] [phone] Tachycardia (Primary Dx); Constipation, unspecified constipation type; Dysuria; Mixed hyperlipidemia; Paranoid schizophrenia (CMS/HCC) Social History Tobacco Use Types Packs/Day Years Used Date Smoking Tobacco: Never Passive Smoke Exposure: Never Smokeless Tobacco: Never Tobacco Cessation:Counseling Given: Not Answered Alcohol Use Standard Drinks/Week Comments Never 0 (1 standard drink = 0.6 oz pur e alcohol) Depression Answer Date Recorded Patient Health Questionnaire-9 Score 0 07/09/2025 Patient Health Questionnaire-9 Score 0 07/09/2025 Last PHQ-9: Questionnaire Data Not on file 0 07/09/2025 Housing Stability Answer Date Recorded What is [...] Date Recorded Patient Health Questionnaire-2 Score 0 07/09/2025 Internet Access Answer Date Recorded Internet Access Q1 Yes 06/28/2025 Internet Access Q2 I do not want or need it 06/11 Comments Unknown Sex and Gender Information Value Date Recorded Sex Assigned at Female 08/10/2022 10:14 AM EDT Legal Sex Female 10:14 AM EDT Gender Identity Female 08/10/2022 10:14 AM EDT Sexual Orientation Choose not to disclose 2021 10:14 AM EDT documented as of this encounter Last Filed Vital Signs Vital Sign Reading Time Taken Comments Blood Pressure 122/80 07/09/2025 9:01 AM EDT Pulse 105 07/09/2025 9:30 AM EDT Temperature 37.5 C (99.5 F) 07/09/2025 9:01 AM EDT Respiratory Rate 20 07/09/2025 9:01 AM EDT Oxygen Saturation - - Inhaled Oxygen Concentration - - Weight 67.6 kg (149 lb) 07/09/2025 9:01 AM EDT Height 160 cm (5' 3 ) 07/09/2025 9:01 AM EDT Body Mass Index 26.39 07/09/2025 9:01 AM EDT documented in this encounter Functional Status * Over the past 2 weeks, how often have you been bothered by any of the following problems? Question Answer Date of Assessment Author Patient Health Questionnaire-2 Score 0 07/09/2025 9:02 AM EDT Helen Quesada MA * Little interest or pleasure in doing things Answer Date of Assessment Author Not at all 07/09/2025 9:02 AM EDT Helen Bear MA * Feeling down, depressed, or hopeless Answer Date of Assessment Author Not at all 07/09/2025 9:02 AM EDT Helen Bear MA * Trouble falling or staying asleep, or sleeping too much Answer Date of Assessment Author Not at all 07/09/2025 9:02 AM EDT Helen Bear MA * Feeling tired or having little energy Answer Date of Assessment Author Not at all 07/09/2025 9:02 AM EDT Helen Bear MA * Poor appetite or overeating Answer Date of Assessment Author Not at all 07/09/2025 9:02 AM Helen De La Torre MA * Feeling bad about yourself - or that you are a failure or have let yourself or your family down Answer Date of Assessment Author Not at all 07/09/2025 9:02 AM Helen De La Torre MA * Trouble concentrating on things, such as reading the newspaper or watching television Answer Date of Assessment Author Not at all 07/09/2025 9:02 AM Helen De La Torre MA * Moving or speaking so slowly that other people could have noticed? Or the opposite - being so fidgety or restless that you have been moving around a lot more than usual. Answer Date of Assessment Author Not at all 07/09/2025 9:02 AM Helen De La Torre MA * Thoughts that you would be better off or hurting yourself in some way Answer Date of Assessment Author Not at all 07/09/2025 9:02 AM Helen De La Torre MA * Patient Health Questionnaire-9 Score Answer Date of Assessment Author 0 07/09/2025 9:02 AM Helen De La Torre MA documented as of this encounter Progress Notes * [facility], [facility] - 07/09/2025 9:00 AM EDT SUBJECTIVE: Itzel Duncan is a 60 y.o. year old female schizophrenia, HLD, and migraine disorder who presents for evaluation re multiple concerns. Acute Concerns: Chest pain/dizziness--intermittent mid sternal squeezing chest pain. Symptoms prompted patient togo to the ER on 06/21/2025. She left before being seen however initial blood work showed normal labsincluding negative troponin. No assocaited SOB, palpitations. No recent illness. No tenderness withpalpation. No significant family history of cardiac history. Daughter has high blood pressure. Reports nonspecific abdominal pain worse in left lower quadrant, symptoms are intermittent. Reports constipation. Denies fevers, chills, Occasional vaginal discomfort after micturition. Denies vaginal itching. Interval History Chronic Health Conditions Psych - Follows with [facility]-report self discontinued all psych medications due to concerns re side effects Urology follows at [facility] for history of renal cyst and nephrolithiasis. Seen 04/2024. Per visit note renal ultrasound stable. Right kidney with upper pole cyst that requires no follow-up imaging. Plan for follow-up 1 year Social History Social History Narrative Tobacco Use: None ETOH: None Marijuana Use: None Other substance use: None Current living environment: Lives alone Children: 4, not in contact Sexually active: No Problem List[1] Surgical History[2] Family History[3] Review of Systems Constitutional: Negative for fatigue, fever and unexpected weight change. Eyes: Negative for visual disturbance. Respiratory: Negative for apnea, chest tightness and shortness of breath. Cardiovascular: Positive for chest pain. Negative for palpitations and leg swelling. No current symptoms in office Gastrointestinal: Positive for abdominal pain. Neurological: Positive for dizziness. Negative for light-headedness and headaches. Hematological: Positive for adenopathy. OBJECTIVE: Visit Vitals BP 122/80 (BP Location: Left arm, Patient Position: Sitting, BP Cuff Size: Adult) Pulse 105 Temp 99.5 ??F (37.5 ??C) (Oral) Resp 20 Ht 5' 3 (1.6 m) Wt 149 lb (67.6 kg) BMI 26.39 kg/m?? Smoking Status Never BSA 1.73 m?? Physical Exam Constitutional: General: She is not in acute distress. Appearance: Normal appearance. HENT: Head: Normocephalic and atraumatic. Right Ear: External ear normal. Left Ear: External ear normal. Nose: Nose normal. Eyes: Conjunctiva/sclera: Conjunctivae normal. Cardiovascular: Rate and Rhythm: Regular rhythm. Tachycardia present. Heart sounds: Normal heart sounds. Pulmonary: Effort: Pulmonary effort is normal. Breath sounds: Normal breath sounds. Abdominal: General: Bowel sounds are normal. There is no distension. Palpations: Abdomen is soft. There is no mass. Tenderness: There is no abdominal tenderness. There is no guarding or rebound. Hernia: No hernia is present. Skin: General: Skin is warm and dry. Neurological: General: No focal deficit present. Mental Status: She is alert and oriented to person, place, and time. Psychiatric: Mood and Affect: Mood normal. Behavior: Behavior normal. ASSESSMENT/PLAN Chest Pain - EKG in office with sinus tachycardia (HR 140's) otherwise no acute findings -Pt reports feeling very anxious--HR decreased to 105 after resting, d deep breathing. Denies substance use, medication changes, OTC medication use. Otherwise asymptomatic in office- NO CP, SOB, dizziness, weakness - Will obtain holter monitor and echocardiogram - Labs-CBC, CMP, TSH - Increase hydration during the day - Strict ED precautions advised - Patient verbalizes understanding and agrees to plan Abdominal Pain - symptoms vague and non-specific with no acute findings on PE - Will treat for constipation with miralax, lifestyle recs including increased fluid intake, pear/prune juice and high fiber diet - Contact HC if no improvement within 7 days or experiencing worsening abdominal pain, fever, chills, or blood in stool Dysuria - UA send out - Vaginitis panel send out - Contact patient pending results - ED precautions advised HLD - Due to check FLP - Continues on atorvastatin 80mg - Check B12 d/t metformin use Schizophrenia - Will reach out [facility] to make them aware that patient has stopped all medications. LALI signed. - Advised patient of risks of discontinuing medication without medical supervision. - She denies current A/V hallucinations however appears notably more agitated in office today than at prior visits - No SI/HI/self harm Diagnosis Plan 1. Tachycardia Holter monitor - 24 hour TSH W/Reflex to FT4 CBC auto differential Transthoracic Echo (TTE) Complete TSH W/Reflex to FT4 CBC auto differential Holter monitor - 24 hour Transthoracic Echo (TTE) Complete Vitamin B12/Folate, Serum Panel Vitamin B12/Folate, Serum Panel 2. Constipation, unspecified constipation type polyethylene glycol, PEG, 3350 (MiraLax) 17 GM/SCOOPpowder 3. Dysuria Urinalysis, Complete, with Reflex to Culture Bacterial Vaginosis Panel Chlamydia/N. Gonorrhoeae RNA, TMA, Vaginal Urinalysis, Complete, with Reflex to Culture 4. Mixed hyperlipidemia Lipid Panel, Standard Lipid Panel, Standard 5. Paranoid schizophrenia (CMS/HCC) Follow Up: 3 months, sooner pending lab results Medications Ordered Prior to Encounter[4] Singaporean Translation: Provided by [facility] staff member RENAY Bentley [1] Patient Active Problem List Diagnosis Bipolar I disorder (CMS/HCC) Chloasma Hypercholesterolemia Migraine Vitamin D deficiency Constipation Chest pain Class 1 obesity due to excess calories with serious comorbidity and body mass index (BMI) of 33.0 to 33.9 in adult Healthcare maintenance Schizophrenia ([facility]/HCC) Upper back pain Hair loss History of renal calculi Macular degeneration [2] Past Surgical History: Procedure Laterality Date SECTION, UNSPECIFIED PROSTHODONTIC PROCEDURE TONSILLECTOMY [3] No family history on file. [4] Current Outpatient Medications on File Prior to Visit Medication Sig Dispense Refill acetaminophen (Tylenol Extra Strength) 500 MG tablet Take 1 tablet (500 mg) by mouth every 8 (eight) hours if needed for moderate pain. 90 tablet 0 atorvastatin (Lipitor) 80 MG tablet TAKE 1 TABLET BY MOUTH EVERY DAY AT BEDTIME 90 tablet 3 capsaicin (Zostrix) 0.025 % cream APPLY TOPICALLY TO AFFECTED AREA(S) TWICE DAILY 60 g 1 cloNIDine (Catapres) 0.2 MG tablet Take 0.2 mg by mouth at bedtime. Diclofenac Sodium 1 % gel APPLY 4 GRAMS TOPICALLY TO AFFECTED AREA(S) TWICE DAILY 100 g 2 docusate sodium (Colace) 100 MG capsule famotidine (Pepcid) 40 MG tablet Take 1 tablet (40 mg) by mouth 2 times daily. 60 tablet 0 fluticasone (Flonase) 50 MCG/ACT nasal spray USE 1 TO 2 SPRAYS IN EACH NOSTRIL EVERY MORNING 48 g 0 FT All Day Pain Relief 220 MG tablet TAKE 1 TABLET BY MOUTH TWICE DAILY IN THE MORNING AND AT BEDTIME NEEDED FOR MILD PAIN 60 tablet 1 GaviLAX 17 GM/SCOOP powder Mix 17g (1 capful) in 8 ounces of water and take by mouth every day 510 g 2 haloperidol (Haldol) 10 MG tablet Take 1 tablet by mouth at bedtime. haloperidol (Haldol) 5 MG tablet Take 1 tablet by mouth in the morning hydrocortisone 1 % cream APPLY RECTALLY TWICE DAILY IF NEEDED FOR HEMORRHOIDS 28 g 1 Ketotifen Fumarate 0.035 % solution PLACE 1 DROP IN THE AFFECTED EYE (s) TWICE DAILY IN THE MORNINGAND AT BEDTIME NEEDED FOR ITCHING OR REDNESS FOR 7 DAYS 5 mL 1 metFORMIN XR (Glucophage-XR) 500 MG 24 hr tablet TAKE 1 TABLET BY MOUTH TWICE A DAY. DO NOT CRUSH, CHEW OR SPLIT. 180 tablet 0 Minoxidil (Minoxidil for Men) 5 % foam APPLY 1/2 CAP TO THE SCALP TWICE DAILY DIRECTED 60 g 0 Multiple Vitamin (multivitamin) tablet Take 1 tablet by mouth Once daily. 90 tablet 3 nortriptyline (Pamelor) 25 MG capsule SUMAtriptan (Imitrex) 25 MG tablet No current facility-administered medications on file prior to visit. documented in this encounter Miscellaneous Notes * Addendum Note - DAO Escobedo - 07/09/2025 9:00 AM EDTAddended by: CHARLOTTE MONTENEGRO on: 08/27/2025 04:15 PM Modules accepted: Orders documented in this encounter Plan of Treatment Scheduled Orders Name Type Priority Associated Diagnoses Order Schedule Holter monitor - 24 hour Cardiac Services Routine Tachycardia Expected: 07/09/2025 (Approximate), Expires: 07/09/2027 Transthoracic Echo (TTE) Complete Echocardiography Routine Tachycardia Expected: 07/09/2025 (Approximate), Expires: 07/09/2027 documented as of this encounter Procedures Procedure Name Priority Date/Time Associated Diagnosis Comments ECG 12-LEAD Routine 08/27/2025 4:15 PM EST Tachycardia VITAMIN B12/FOLATE, SERUM PANEL Routine 07/09/2025 10:20 AM EDT Tachycardia URINALYSIS, COMPLETE, WITH REFLEX TO CULTURE Routine 07/09/2025 10:20 AM EDT Dysuria TSH W/REFLEX TO FT4 Routine 07/09/2025 1 0:20 AM EDT Tachycardia CBC WITH AUTO DIFFERENTIAL Routine 07/09/2025 10:20 AM EDT Tachycardia LIPID PANEL, STANDARD Routine 07/09/2025 10:20 AM EDT Mixed hyperlipidemia BACTERIAL VAGINOSIS PANEL Routine 07/09/2025 9:51 AM EDT Dysuria CHLAMYDIA/N. GONORRHOEAE RNA, TMA, UROGENITAL Routine 07/09/2025 9:51 AM EDT Dysuria documented in this encounter Results * ECG 12 lead (08/27/2025 4:15 PM EST) Charlotte Green FNP - 08/27/2025 4:15 PM EST Sinus tachycardia. See scanned report [facility] ECG ORDERABLES Final Result * Vitamin B12/Folate, Serum Panel (07/09/2025 10:20 AM EDT) Vitamin B12 570 200 - 900 pg/mL [facility] Comment:NORMAL 200-900 PG/ML INDETERMINATE 160-199 PG/ML DEFICIENT < 160 PG/ML Folate 5.7 > or = 4.0 ng/mL [facility] Comment:Reference Values:> o r = 4.0 ng/mL< 4.0 ng/mL suggests folate deficiency Methotrexate, aminopterin and folinic acid(leucovorin) are chemotherapeutic agents whose molecularstructures are similar to folate; therefore, the Architectfolate assay cannot be used for patients using these drugs. Blood Venous blood specimen / Unknown 07/09/2025 10:20 AM EDT 07/09/2025 11:13 AM EDT [facility] LAB BLOOD ORDERABLES Final Re sult [facility] [address] [place] [phone] * Lipid Panel, Standard (07/09/2025 10:20 AM EDT) Triglycerides 112 <150 mg/dL [facility] Comment:Desirable Triglyceri de: less than 150 mg/dLBorderline High Triglyceride 150-199 mg/dLHigh Triglyceride: 200-499 mg/dLVery High Triglyceride: greater than or equal to 5OO mg/dL Cholesterol 153 <200 mg/dL [facility] Comment:Desirable Cholestero l: less than 200 mg/dLBorderline High Cholesterol: 200-239 mg/dLHigh Cholesterol: greater than 239 mg/dL LDL Cholesterol Calculated 71 <100 mg/dL [facility] Comment:Desirable LDL: less than 100 mg/dLNear Optimal/Above Optimal LDL: 110- 129 mg/dLBorderline High LDL: 130-159 mg/dLHigh LDL: 160-189 mg/dLVery High LDL: greater than or equal to 190 mg/dL HDL Cholesterol 60 >40 mg/dL [facility] Comment:Desirable HDL: great er than 40 mg/dL Note: This HDL assay may give artificially low results in patients with liver disease. Blood Venous blood specimen / Unknown 07/09/2025 10:20 AM EDT 07/09/2025 11:13 AM EDT [facility] [facility] LAB BLOOD ORDERABLES Final Re sult [facility] [address] [place] [phone] * (ABNORMAL) Urinalysis, Complete, with Reflex to Culture (07/09/2025 10:20 AM EDT) Color Urine Dark Yellow [facility] Appearance Urine Clear [facility] PH 6.0 5.0 - 9.0 [facility] Glucose Urine UA Negative Negative mg/dL [facility] Urine Blood Negative Negative [facility] Specific [place] - Urine 1.025 1.005 - 1.025 [facility] Urine Protein 30 (1+)(A) Neg-Trace mg/dL [facility] Urine Ketones Trace Negative mg/dL [facility] Nitrite Urine Negative Negative [facility] Leukocyte Esterase Urine Moderate (2+)(A) Negative [facility] RBC Urine 0-2 0 - 2 /HPF [facility] Urine WBC 11-20(A) 0 - 5 /HPF [facility] Urine Squamous Epithelial Cell 11-20 0 - 2 /HPF [facility] Urine Bacteria 4+ None Seen [facility] Hyaline Casts, Urine 11-20 0 - 2 /LPF [facility] GRANULAR CASTS (#/HPF) IN URINE Present [facility] Urine 07/09/2025 10:2 0 AM EDT 07/09/2025 11:02 AM EDT Narrative [facility] - 07/09/2025 12:01 PM EDT Urine, Clean Catch [facility] URINE ORDERABLES Final Re sult [facility] [address] [place] [phone] * CBC auto differential (07/09/2025 10:20 AM EDT) White Blood Count 8.1 4.8 - 10.8 X10*3/uL [facility] Red Blood Count 5.05 4.20 - 5.50 X10*6/uL [facility] Hemoglobin 14.6 12.0 - 16.0 g/dl [facility] Hematocrit 44.4 37.0 - 47.0 % [facility] Mean Corpuscular Volume 87.9 80.0 - 98.0 fL [facility] Mean Corpuscular Hemoglobin 28.9 27.0 - 33.0 pg [facility] Mean Corpuscular HGB Conc 32.9 31.0 - 35.0 g/dl [facility] Red Cell Distribution Width 13.1 11.0 - 16.0 % [facility] Platelet Count 267 160 - 400 X10*3/uL [facility] Mean Platelet Volume 10.9 9.4 - 12.3 fL [facility] Neutrophils Percent Auto 66.9 45 - 73 % [facility] Imm Gran Pct Auto 0.4 0.0 - 0.4 % [facility] Lymphocytes Percent Auto 22.5 20 - 40 % [facility] Monocytes Percent Auto 9.1 2 - 11 % [facility] Eosinophils Percent Auto 0.7 0 - 4 % [facility] Basophils Percent Auto 0.4 0 - 2 % [facility] NRBC Pct Auto 0.0 0.0 - 0.2 /100WBC [facility] Neutrophils Absolute Auto 5.4 2.0 - 8.3 x10*3/uL [facility] Imm Gran Abs Auto 0.03 0.00 - 0.03 X10*3/uL [facility] Lymphocytes Absolute Auto 1.8 1.2 - 4.9 X10*3/uL [facility] Monocytes Absolute Auto 0.7 0.1 - 1.2 X10*3/uL [facility] Eosinophils Absolute Auto 0.1 0.0 - 0.4 X10*3/uL [facility] Basophils Absolute Auto 0.0 0.0 - 0.2 X10*3/uL [facility] NRBC Abs Auto 0.000 0.0 - 0.012 X10*3/uL [facility] Blood Venous blood specimen / Unknown 07/09/2025 10:20 AM EDT 07/09/2025 11:05 AM EDT [facility] LAB BLOOD ORDERABLES Final Re sult Performing Organization Address City/[facility]/ZIP Co de Phone Number [facility] [address] [place] [phone] * TSH W/Reflex to FT4 (07/09/2025 10:20 AM EDT) Pathologist [facility] TSH reflex Free T4 1.19 0.32 - 4.0 uIU/mL [facility] Blood Venous blood specimen / Unknown 07/09/2025 10:20 AM EDT 07/09/2025 11:13 AM EDT [facility] LAB BLOOD ORDERABLES Final Re sult Performing Organization Address [facility] Co de Phone Number [facility] [address] [place] [phone] * Chlamydia/N. Gonorrhoeae RNA, TMA, Vaginal (07/09/2025 9:51 AM EDT) Pathologist [facility] CT PCR NOT DETECTED Not Detect. [facility] Comment:A not detected test result does not exclude the possibilityof infection because test results can be affected byimproper specimen collection, concurrent antibiotic therapy,or the number of organisms in the specimen which may bebelow the sensitivity of the test. As with many diagnostictests, results from the Xpert CT/NG assay should beinterpreted in conjunction with other laboratory andclinical data available to the clinician.Xpert CT/NG performance has not been evaluated in patientsless than 14 years of age. The assay should not be used forthe evaluationof suspected sexual abuse or for other medico-legalindications. Additional testing is recommended in anycircumstance when false positive or false negative resultscould lead to adverse medical, social or psychologicalconsequences. NG PCR NOT DETECTED Not Detect. [facility] Comment:A not detected test result does not exclude the possibilityof infection because test results can be affected byimproper specimen collection, concurrent antibiotic therapy,or the number of organisms in the specimen which may bebelow the sensitivity of the test. As with many diagnostictests, results from the Xpert CT/NG assay should beinterpreted in conjunction with other laboratory andclinical data available to the clinician.Xpert CT/NG performance has not been evaluated in patientsless than 14 years of age. The assay should not be used forthe evaluationof suspected sexual abuse or for other medico-legalindications. Additional testing is recommended in anycircumstance when false positive or false negative resultscould lead to adverse medical, social or psychologicalconsequences. Swab Vaginal structure / Unknown 07/09/2025 9:51 AM EDT 07/09/2025 6:10 PM EDT [facility] MICROBIOLOGY - GENERAL OR DERABLES Final Result [facility] [address] [place] [phone] * (ABNORMAL) Bacterial Vaginosis Panel (07/09/2025 9:51 AM EDT) TRICHOMONAS VAGINALIS DETECTION BY PCR NOT DETECTED Not Detect [facility] BACTERIAL VAGINOSIS DETECTION BY PCR POSITIVE(A) Negative [facility] Comment:The BV organism targ ets of the Xpert Xpress MVP test can becommensal in women; Xpert Xpress MVP positive results forbacterial vaginosis should be considered in conjunction withother clinical and patient information to determine thedisease status. Organisms that are not detected by the XpertXpress MVP test have also been reported to be associatedwith BV and aerobic vaginitis.The Xpert Xpress MVP test performance has not been evaluatedin patients under the age of 14. ELISABETH GROUP DETECTION BY PCR DETECTED(A) Not Detect [facility] Elisabeth glab krusei PCR NOT DETECTED Not Detect [facility] Swab Vaginal structure / Unknown 07/09/2025 9:51 AM EDT 07/09/2025 6:10 PM EDT [facility] MICROBIOLOGY - GENERAL OR DERABLES Final Result [facility] [address] [place] [phone] documented in this encounter Visit Diagnoses Diagnosis Tachycardia- Primary Unspecified tachycardia Constipation, unspecified constipation type Dysuria Mixed hyperlipidemia Paranoid schizophrenia (CMS/HCC) (HCC) Paranoid schizophrenia, unspecified condition documented in this encounter Additional Health Concerns Assessment Noted Time PHQ-9 Depression Total Score: 0 07/09/20 9:02 AM EDT documented as of this encounter Care Teams Lead Fabricator Relationship Specialty Start Date End Date [facility] [address] [place] [phone] PCP - General Family Medicine 06/09/22 Pete Shultz, SHARI [address] [place] [phone] Registered Nurse Family Medicine 06/22/25 Jacinta Bajwa 06/22/25 07/30/25 documented as of this encounter
--- NOTE | 2025-08-30 13:43 | CA_ITS ---
Transthoracic Echocardiogram Patient (Last, First, Middle): Itzel Duncan E Gender: Female Date of : 1965 Age: 60 Procedure Date: 08/30/2025 Procedure Type: Transthoracic Echocardiogram Location: OP Height: 160. cm Weight: 67.59 kg BSA: 1.71 m2 Heart Rate: 105 bpm BP: 120 / 75 mmHg Apprentice Jockey: MARIELENA Referring MD: Charlotte DC Symptoms: TACHYCARDIA Study Quality: Adequate ECG Rhythm: Tachycardia Conclusions: - The left ventricular systolic function is normal. The calculated ejection fraction is 57% by biplane method. - No obvious valvular pathology seen on this study. Findings Left Ventricle Normal left ventricular cavity size. There is normal left ventricular wall thickness. The left ventricular systolic function is normal. The calculated ejection fraction is 57% by biplane method. There is no evidence of regional wall motion abnormalities. Diastolic function is normal for age. Right Ventricle Normal right ventricular cavity size and systolic function. Atria Both atria are normal in size. Aortic Valve The aortic valve was not well visualized. There is no aortic valve stenosis. There is no aortic valve regurgitation. Mitral Valve The mitral valve appears normal. There is no mitral valve regurgitation. There is no mitral valve stenosis. Pulmonic Valve The pulmonic valve is likely normal. Tricuspid Valve There is trace tricuspid valve regurgitation. There is no evidence of pulmonary hypertension. Great Vessels The asc aorta and aortic arch are normal in size. Venous The inferior vena cava is normal in size and collapses greater than 50% with inspiration. Pericardium/Pleural There is no evidence of pericardial effusion. Prior Study Comparison No prior study available for comparison. Recommendations, Care & Conclusions No obvious valvular pathology seen on this study. Measurements 2D Linear Measurements IVSd: 0.91 0.6-0.9/0.6-1.0 cm LVIDd: 3.54 3.9-5.3/4.2-5.9 cm LVIDd Index: 2.07 2.4-3.2/2.2-3.1 cm/m2 LVIDs: 2.15 2.0-3.6 cm LVPWd: 1.00 0.7-1.1 cm LA Diam: 3.20 2.7-3.8/3.0-4.0 cm LAIDs Index: 1.87 1.5-2.3 cm/m2 LV Mass: 121.94 67-162/88-224 g LV Mass Index: 71.31 43-95/49-115 g/m2 LVOT Diam: 2.00 3.0+(-)1.3 cm 2D Systolic Function EF 4C: 55.10 >55% EF 2C: 56.20 >55% EF BiP: 56.50 >55% Mitral Valve MV Pk E: 0.72 MV PK A: 0.78 MV Decel Time: 143.00 E/A: 0.90 E'Lateral: 11.50 E'Medial: 8.05 E/E' Med: 8.90 E/E' Lat: 6.30 PHT: 42.00 MVA PHT: 5.24 Decel [place]: 5.05 Aortic Valve AoV Pk Luis Armando: 1.07 AoV Mn Luis Armando: 0.75 AoV VTI: 0.18 AoV Pk Grad: 5.00 Aov Mn Grad: 3.00 ABIODUN Cont.VTI: 2.64 LVOT LVOT Pk Luis Armando: 0.94 LVOT Mn Luis Armando: 0.62 LVOT VTI: 0.15 LVOT Pk Grad: 4.00 LVOT Mn Grad: 2.00 LVOT Diam: 2.00 LVOT Area: 3.14 Diastolic Function MV Pk E: 0.72 MV Pk A: 0.78 E/A: 0.90 E'Medial: 8.05 E/E' Med: 8.90 E' Laterial: 11.50 E/E' Lat: 6.30 Right Ventricle TAPSE (mm): 21.50 TVS' Luis Armando: 13.30 Tricuspid Valve TR Pk Luis Armando: 2.26 TR Pk Grad: 20.00 RA Press: 3.00 RVSP: 23.00 Great Vessels Aorta Sinus of Valsalva: 3.60 2.0-3.5 cm Ao Asc: 3.50 2.1-3.4 cm Ao Arch: 2.80 Pulmonary Valve PV Pk Luis Armando: 0.94 Peak PV Grad: 4.00 Updated in Other Vendor System with Status of Final Rc Manrique MD electronically signed on 08/31/2025 3:33:39 PM with status of Final
--- NOTE | 2025-08-30 13:44 | HM_ITS ---
* Total monitoring time 4 days. * Underlying rhythm is sinus with an average rate of 82/Min. * Rare supraventricular ectopy. * One isolated ventricular ectopic beat. * No significant pauses or high-grade AV blocks. * No patient markers or diary events. MTDD
--- OUTSIDE RECORDS SUMMARY | 2025-08-30 19:05 | XMS_ITS | Clinical Summary ---
Author Organization [employer] Address [address] [facility] [address] [place] [address] Care Team Providers Care Ladle Handler Name Role Phone Charlotte Laureano [facility] Primary Care Provider [phone] Pete Shultz RN Unavailable [phone] Allergies Active Allergy Reactions Criticality Noted Date Comments Amoxicillin 09/23/2017 Other reaction(s): hair loss [place] 09/09/2018 Other reaction(s): Rash, Rash Risperidone 02/01/2014 Other reaction(s): Gynecomastia Medications * This document contains information received from the source organization and may not represent a complete record from that organization. cloNIDine (Catapres) 0.2 MG tablet Take 0.2 mg by mouth at bedtime. 2 Active haloperidol (Haldol) 5 MG tablet Take 1 tablet by mouth in the morning 2 Active SUMAtriptan (Imitrex) 25 MG tablet 2 Active capsaicin (Zostrix) 0.025 % creamIndications :Acute pain of both knees APPLY TOPICALLY TO AFFECTED AREA(S) TWICE DAILY 60 g 1 3 Active Diclofenac Sodium 1 % gelIndications:A cute pain of both knees APPLY 4 GRAMS TOPICALLY TO AFFECTED AREA(S) TWICE DAILY 100 g 2 3 Active fluticasone (Flonase) 50 MCG/ACT nasal sprayIndications :Seasonal allergies USE 1 TO 2 SPRAYS IN EACH NOSTRIL EVERY MORNING 48 g 3 Active Multiple Vitamin (multivitamin) tabletIndication s:Healthcare maintenance Take 1 tablet by mouth Once daily. 90 tablet 3 4 Active haloperidol (Haldol) 10 MG tablet Take 1 tablet by mouth at bedtime. 4 Active hydrocortisone 1 % cream APPLY RECTALLY TWICE DAILY IF NEEDED FOR HEMORRHOIDS 28 g 1 4 Active Minoxidil (Minoxidil for Men) 5 % foamIndications: Hair loss APPLY 1/2 CAP TO THE SCALP TWICE DAILY DIRECTED 60 g 4 Active nortriptyline (Pamelor) 25 MG capsule 4 Active docusate sodium (Colace) 100 MG capsule 4 Active GaviLAX 17 GM/SCOOP powderIndication s:Constipation, unspecified constipation type Mix 17g (1 capful) in 8 ounces of water and take by mouth every day 510 g 2 4 Active atorvastatin (Lipitor) 80 MG tablet TAKE 1 TABLET BY MOUTH EVERY DAY AT BEDTIME 90 tablet 3 5 Active metFORMIN XR (Glucophage-XR) 500 MG 24 hr tabletIndication s:Class 1 obesity due to excess calories with serious comorbidity and body mass index (BMI) of 33.0 to 33.9 in adult TAKE 1 TABLET BY MOUTH TWICE A DAY. DO NOT CRUSH, CHEW OR SPLIT. 180 tablet 5 Active Ketotifen Fumarate 0.035 % solution PLACE 1 DROP IN THE AFFECTED EYE (s) TWICE DAILY IN THE MORNING AND AT BEDTIME NEEDED FOR ITCHING OR REDNESS FOR 7 DAYS 5 mL 1 5 Active FT All Day Pain Relief 220 MG tabletIndication s:Acute bilateral back pain, unspecified back location TAKE 1 TABLET BY MOUTH TWICE DAILY IN THE MORNING AND AT BEDTIME NEEDED FOR MILD PAIN 60 tablet 1 5 Active polyethylene glycol, PEG, 3350 (MiraLax) 17 GM/SCOOP powderIndication s:Constipation, unspecified constipation type Take 17 g by mouth Once per day. 527 g 2 5 Active famotidine (Pepcid) 40 MG tablet TAKE 1 TABLET BY MOUTH TWICE DAILY 180 tablet 5 Active Acetaminophen Extra Strength 500 MG tablet TAKE 1 TABLET BY MOUTH EVERY 8 HOURS NEEDED FOR PAIN MODERATE 90 tablet 5 Active Active Problems Problem Noted Date Diagnosed Date [...] pain 11/02/2022 Overview (11/02/2022): - Presented to [facility] 07/25/22 with c/o chest tightness and [...] not helped with weight loss Referred to [facility] weight mgnmt 08/2022, denied due to lack of comorbidity Metformin 500mg b.I.d-tolerating well Assessment & Plan (12/22/2023 10:15 AM EDT): Metformin has been effective adjunct for patient along with diet/exercise Continue 500mg b.I.d At follow up plan to check B12 Healthcare maintenance 11/02/2022 Overview (12/22/2023): Mammo: 01/12/2022, bi-rads 1, followed by [facility] PRO[facility]CHNICIAN Pap: 01/2023 Neg HPV neg, followed by [facility] C-scope: 08/2015 neg; repeat 08/2025 BMD: Routine age 65 Immunizations: Up to date Assessment & Plan (12/22/2023 10:15 AM EDT): Updated mammogram ordered Patient will call to scheduled annual [facility] PROGRAM TECHNICIAN exam Assessment & Plan (04/25/2023 4:48 PM EDT): Multivitamin sent to the pharmacy Constipation 09/23/2017 Chloasma 06/10/2017 Vitamin D deficiency 08/17/2016 Bipolar I disorder ([facility]) 08/21/2015 Overview (02/22/2023): Followed by outside psychiatry [...] Encounters Date Type Department Care Team Description 08/28/2025 Patient Outreach [address] [address] [place] 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 Care Management (C3CM- f/u call) 08/14/2025 Patient Outreach [address] [address] [facility], 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 Care Management (C3CM- f/u call) 08/04/2025 Orders Only GENERIC EXTERNAL DATA DEPARTMENT Provider, Generic External Data 08/03/[address] [address] [place] [facility] Nurse Triage 08/01/2025 Patient Outreach [address] [address] [facility] 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 07/30/2025 Patient Outreach [address] [address] [facility] Care Coordination (SDOH) 07/30/2025 Patient Outreach [address] [address] [facility] Care Management (C3CM- f/u call) 07/26/2025 9:00 AM EDT Office Visit [address] [address] Verna Mantilla CNM Mastodynia (Primary Dx) 07/26/2025 Travel 07/25/[address] [address] Verna Mantilla CNM chart prep 07/25/2025 Refill [facility] [address] [place] [phone] Zachary Simon MD 07/24/2025 9:30 AM EDT Office Visit [address] [address] Teresa Storm FNP Mastodynia (Primary Dx) 07/24/[address] [address] [place] 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 Med Refill 07/24/2025 Travel 07/16/2025 Patient Outreach [address] [place] [address] Charlotte Laureano FNP Care Coordination (SDOH f/u) 07/16/2025 Patient Outreach [facility] [place] [address] Charlotte Laureano FNP Care Management (C3CM- f/u call) 07/10/2025 Refill [facility] [place] [address] Charlotte Laureano FNP Bacterial vaginosis; Yeast infection 07/09/2025 9:00 AM EDT [address] [place] [address] Charlotte Laureano FNP Tachycardia (Primary Dx); Constipation, unspecified constipation type; Dysuria; Mixed hyperlipidemia; Paranoid schizophrenia ([facility]) 07/09/2025 Orders Only [address] [place] [address] Charlotte Laureano FNP 07/09/2025 Travel 07/06/2025 [address] [place] [address] Charlotte Laureano FNP Chart Prep 07/02/2025 Patient Outreach [address] [address] Charlotte Laureano FNP Pre-visit Planning ([facility] screening completed on 06/28/2025) 06/28/2025 Plan of Care Documentation [address] [address] 06/28/2025 Patient Outreach [address] [address] Charlotte Laureano FNP Care Coordination 06/28/2025 Patient Outreach [address] [address] Charlotte Laureano FNP 06/22/[address] order 06/22/2025 Patient Outreach [address] [address] Charlotte Laureano FNP Care Coordination (CM/CHW outreach) 06/22/2025 Patient Outreach [facility] [address] [place] [address] Charlotte Laureano FNP Care Management (C3CM- chart review) 06/22/2025 Patient Outreach [facility] [address] [place] [address] Charlotte Laureano FNP 06/21/2025 Orders Only GENERIC EXTERNAL DATA DEPARTMENT Provider, Generic External Data 06/12/2025 2:20 PM EDT Office Visit [facility] [address] [place] [address] Name, MD Zachary Epigastric pain (Primary Dx) 06/12/2025 Travel 06/06/2025 11:00 AM EDT Office Visit [facility] [address] [place] [phone] Teresa Storm FNP Armpit pain, left (Primary Dx) 06/06/[address] [address] Charlotte Laureano FNP Call Back Request 06/06/2025 Travel from Last 3 Months Immunizations Immunization [...] not want or need it 06/11 Comments No Sex and Gender Information Value Date Recorded Sex Assigned at Female 08/10/2022 10:14 AM EDT Legal Sex Female 10:14 AM EDT Gender Identity Female 08/10/2022 10:14 AM EDT Sexual Orientation Choose not to disclose 2021 10:14 AM EDT Last Filed Vital Signs Vital Sign Reading Time Taken Comments Blood Pressure 110/80 07/26/2025 9:02 AM EDT Pulse 130 07/24/2025 9:10 AM EDT Temperature 37.1 C (98.7 F) 07/26/2025 9:02 AM EDT Respiratory Rate 16 07/26/2025 9:02 AM EDT Oxygen Saturation 99% 07/24/2025 9:10 AM EDT Inhaled Oxygen Concentration - - Weight 67.1 kg (148 lb) 07/24/2025 9:10 AM EDT Height 160 cm (5' 3 ) 07/24/2025 9:10 AM EDT Body Mass Index 26.22 07/24/2025 9:10 AM EDT Plan of Treatment Health Maintenance Due Date Last Done Comments CT Colonography 1965 Dental Prophylaxis 1965 Dental X-Ray: Bitewings 1965 Dental X-Ray: Full Mouth 1965 FIT DNA/Cologuard 1965 FIT 1965 FOBT 1965 Disability Screening 1965 COVID-19 Vaccine ( season) 2025 09/01/2024, 10/13/2023, 07/27/2022, Additional history exists Dental Oral Exam 06/28/2025 12/25/2024, 12/21/2022 Colonoscopy 07/24/2025 07/24/2015 SDOH Screening 06/28/2026 06/28/2025 Alcohol/Substance Use Screening 07/09/2026 07/09/2025 Depression Screening 07/09/2026 07/09/2025, 07/09/20 25 Tobacco Screening 07/26/2026 07/26/2025 Mammogram 08/29/2026 08/29/2025, 04/05/2025, 01/21/2024, Additional history exists Cervical Cancer Screening 02/02/2028 HPV/Cotest 02/02/2028 Pap Smear 02/02/2028 02/01/2023 Colorectal Cancer Screening 01/01/2030 Sigmoidoscopy 01/01/2030 01/01/2025 Lipid Panel 07/09/2030 07/09/2025, 06/12, 11/24/2022, Additional history exists DTaP/Tdap/Td Vaccines (4 - Td or Tdap) 11/13/2032 11/13/2022, 04/17/2014, 11/17/2012, Additional history exists RSV Patients and Patients Aged 60 years or older (1 - 1-dose 75+ series) 2040 Hepatitis A Vaccines Aged Out 04/02/2016, 05/15/20 15 No longer eligible based on patient's age to complete this topic Hepatitis B Vaccines Completed 05/31/2017, 04/02/2016, 05/15/2015 Zoster Vaccines Completed 02/23/2019, 12/15/2018 Pneumococcal Vaccine: 50+ Years Completed 01/08/2025 HIV [...] Priority Date/Time Associated Diagnosis Comments BI MAMMOGRAM DIAGNOSTIC TOMOSYNTHESIS BILATERAL Routine 08/29/2025 1:10 PM EST Mastodynia ECG 12-LEAD Routine 08/27/2025 4:15 PM EST Tachycardia XR CHEST 2 VIEWS Routine 08/04/2025 12:3 3 PM EDT COVID-19 ID NOW ([place]) Routine 08/04/2025 9:41 AM EDT HIGH SENSITIVITY TROPONIN I Routine 08/04/2025 9:41 AM EDT COMPREHENSIVE METABOLIC PANEL Routine 08/04/2025 9:41 AM EDT CBC WITH AUTO DIFFERENTIAL Routine 08/04/2025 9:41 AM EDT INFLUENZA A B2 ID NOW ([place]) Routine 08/04/2025 9:41 AM EDT STREP A NUCLEIC ACID Routine 08/04/2025 9:41 AM EDT US RENAL COMPLETE Routine 08/03/2025 10: 27 AM EDT VITAMIN B12/FOLATE, SERUM PANEL Routine 07/09/2025 10:20 AM EDT Tachycardia LIPID PANEL, STANDARD Routine 07/09/2025 10:20 AM EDT Mixed hyperlipidemia URINALYSIS, COMPLETE, WITH REFLEX TO CULTURE Routine 07/09/2025 10:20 AM EDT Dysuria CBC WITH AUTO DIFFERENTIAL Routine 07/09/2025 10:20 AM EDT Tachycardia TSH W/REFLEX TO FT4 Routine 07/09/2025 1 0:20 AM EDT Tachycardia CHLAMYDIA/N. GONORRHOEAE RNA, TMA, UROGENITAL Routine 07/09/2025 9:51 AM EDT Dysuria BACTERIAL VAGINOSIS PANEL Routine 07/09/2025 9:51 AM EDT Dysuria CULTURE, URINE, ROUTINE Routine 07/09/2025 12:00 AM EDT HIGH SENSITIVITY TROPONIN I Routine 06/21/2025 12:01 PM EDT LIPASE Routine 06/21/2025 12:01 PM EDT MAGNESIUM Routine 06/21/2025 12:01 PM EDT COMPREHENSIVE METABOLIC PANEL Routine 06/21/2025 12:01 PM EDT CBC WITH AUTO DIFFERENTIAL Routine 06/21/2025 12:01 PM EDT HEPATITIS C ANTIBODY ([place] [facility]) Routine 04/20/2025 HIV ANTIBODY/ANTIGEN ([place] [facility]) Routine 04/20/2025 PERIODIC ORAL EVALUATION - ESTABLISHED PATIENT Routine 12/25/2024 9:30 AM EDT PAP/HPV Routine 02/01/2023 COLONOSCOPY Routine 07/24/2015 8:38 AM EDT from Last 3 Months or Most Recently Relevant to Health Maintenance Results * BI Mammogram Diagnostic Tomosynthesis Bilateral (08/29/2025 1:10 PM EST) Anatomical Region Laterality Modality Breast Bilateral Mammography 08/29/2025 1:10 PM EST Narrative 08/29/2025 2:14 PM EST [facility] [address] [place] [address] [place] [address] Mammography Report Signed Patient: Itzel Duncan MR#: [id number] 3 : 1965 Acct:[id number] Age/Sex: 60 / F ADM Date: 08/29/25 Loc: MATHEW Attending Dr: Teresa DC Ordering Physician: Teresa Storm Results: 2Benig n Date of Service: 08/29/25 Follow Up: 1 Year From [facility] Mammogram Procedure(s): MM tomosynthesis diagnostic BI Accession Number(s): [id number] cc: Teresa StormP; [facility] 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 Reason For Exam: MASTODYNIA EXAMINATION: MM DIAGNOSTIC DIGITAL BREAST TOMOSYNTHESIS, BILATERAL CLINICAL INFORMATION: Patient had prior bilateral diffuse breast pain for one week. Patient does not have pain today. Patient never had focal pain. COMPARISON: Mammography: Comparison is made with relevant prior exams. TECHNIQUE: Digital breast mammography with tomosynthesis is performed in both the craniocaudal and mediolateral oblique views along with computer-aided detection (CAD). FINDINGS: There are scattered areas of fibroglandular density. Right marker clip from previous benign needle core biopsy. There are no significant masses, abnormal calcifications, or other abnormalities. Results are provided to the patient at time of visit by the technologist. MM/MM tomosynthesis diagnostic BI IMPRESSION: No mammographic evidence of malignancy. No mammographic abnormal finding to account for the patient's bilateral diffuse breast pain bilateral breasts. If patient has focal pain in the future a diagnostic ultrasound can be ordered and performed. ASSESSMENT: BI-RADS Category 2: Benign RECOMMENDATION: 1 year F/U This patient's information was entered into a reminder system with a target due date for their next mammogram. Electronically signed by: Val Baker DO 08/29/2025 02:11 PM [facility] Dictated By: Val Baker DO Signed By: <Electronically signed by Val Baker DO in OV> 08/29/25 1411 DD/ 1310 TD/TT: 08/29/25 1330 Chief Technologist: Procedure Note Donotuseinterpreter, Image - 08/29/2025 [facility] [address] [place] [address] Mammography Report Signed Patient: Itzel Duncan EMR#: [id number] 3 : 1965Acct:[id number] Age/Sex: 60 / FADM Date: 08/29/25 Loc: MATHEW Attending Dr: Teresa DC Ordering Physician: Teresa Storm FNPResults: 2Benig n Date of Service: 08/29/25Follow Up: 1 Year From Orig ina Mammogram Procedure(s): MM tomosynthesis diagnostic BI Accession Number(s): [id number] cc: Teresa Storm 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; [facility] 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 Reason For Exam: MASTODYNIA EXAMINATION: MM DIAGNOSTIC DIGITAL BREAST TOMOSYNTHESIS, BILATERAL CLINICAL INFORMATION: Patient had prior bilateral diffuse breast pain for one week. Patient does not have pain today. Patient never had focal pain. COMPARISON: Mammography: Comparison is made with relevant prior exams. TECHNIQUE: Digital breast mammography with tomosynthesis is performed in both the craniocaudal and mediolateral oblique views along with computer-aided detection (CAD). FINDINGS: There are scattered areas of fibroglandular density. Right marker clip from previous benign needle core biopsy. There are no significant masses, abnormal calcifications, or other abnormalities. Results are provided to the patient at time of visit by the technologist. MM/MM tomosynthesis diagnostic BI IMPRESSION: No mammographic evidence of malignancy. No mammographic abnormal finding to account for the patient's bilateral diffuse breast pain bilateral breasts. If patient has focal pain in the future a diagnostic ultrasound can be ordered and performed. ASSESSMENT: BI-RADS Category 2: Benign RECOMMENDATION: 1 year F/U This patient's information was entered into a reminder system with a target due date for their next mammogram. Electronically signed by: Val Baker DO 08/29/2025 02:11 PM EST Dictated By: Val Baker DO Signed By: <Electronically signed by Val Baker DO in OV> 08/29/25 1411 DD/ 1310 TD/TT: 08/29/25 1330 Chief Technologist: Teresa Storm [facility] IMG BI PROCEDURES Final Result * ECG 12 lead (08/27/2025 4:15 PM EST) Narrative Charlotte Laureano FNP - 08/27/2025 4:15 PM EST Sinus tachycardia. See scanned report [facility] ECG ORDERABLES Final Result * XR Chest 2 Views (08/04/2025 12:33 PM EDT) Anatomical Region Laterality Modality Chest Radiographic Grace ging 08/04/2025 12:3 3 PM EDT Narrative 08/04/2025 12:34 PM EDT [address] [address] XRay Report Signed Patient: Itzel Duncan#: [id number] 3 : 1965 Acct:[id number] Age/Sex: 60 / F ADM Date: 08/04/25 Loc: .ED Attending Dr: Ordering Physician: Alessandra Moreno Date of Service: 08/04/25 Procedure(s): XR chest 2V Accession Number(s): [id number] cc: Alessandra Moreno; [facility] Reason for Exam: chest pain CLINICAL HISTORY: chest pain 2 view chest x-ray. Comparison: None Findings: The lungs are adequately expanded. No focal consolidation. No effusion or pneumothorax. Cardiac and mediastinal contours are within normal limits. No acute osseous abnormality Impression: No acute process. This document has been electronically signed by: Ruben Snow MD on 08/04/2025 12:33:14 Dictated By: Ruben Snow MD Signed By: <Electronically signed by Ruben Snow MD in OV> 08/04/25 1234 DD/ 1233 TD/TT: 08/04/25 1233 Chief Technologist: Procedure Note Donotuseinterpreter, Image - 08/04/2025 [place] [address] XRay Report Signed Patient: Itzel Duncan EMR#: [id number] 3 : 1965Acct:[id number] Age/Sex: 60 / FADM Date: 08/04/25 Loc: .ED Attending Dr: Ordering Physician: Alessandra Moreno Date of Service: 08/04/25 Procedure(s): XR chest 2V Accession Number(s): [id number] cc: Alessandra Morneo; [facility] Reason for Exam: chest pain CLINICAL HISTORY: chest pain 2 view chest x-ray. Comparison: None Findings: The lungs are adequately expanded. No focal consolidation. No effusion or pneumothorax. Cardiac and mediastinal contours are within normal limits. No acute osseous abnormality Impression: No acute process. This document has been electronically signed by: Ruben Snow MD on 08/04/2025 12:33:14 Dictated By: Ruben Snow MD Signed By: <Electronically signed by Ruben Snow MD in OV> 08/04/25 1234 DD/ 1233 TD/TT: 08/04/25 1233 Chief Technologist: [facility] External Provider IMG XR PROCEDURES Edited Result - Final * Influenza A B2 ID NOW ([place]) (08/04/2025 9:41 AM EDT) IDNOW SERIAL# [id number] [facility] Influenza A Negative Negative [facility] Influenza B2 Negative Negative [facility] Influenza A B2 Note See Note [facility] Comment:The [place] ID NOW In fluenza A B2 test is used for thequalitative detection of influenza A and B from patientswith signs and symptoms of respiratory infection.Negative results do not preclude influenza virus infectionand should not be used as the sole basis for diagnosis,treatment or other patient management decisions.There is a risk of false negative results due to thepresence of variants in the viral targets of the assay, lowlevels of virus in the specimen and co- infection withRespiratory Syncytial Virus. 08/04/2025 9:41 AM EDT 08/04/2025 9:46 AM EDT Generic External Data Provider LAB MICROBIOLOGY - GENERAL ORDERABLES Final Result [facility] [address] [place] [phone] * Strep A Nucleic Acid (08/04/2025 9:41 AM EDT) IDNOW SERIAL# [id number] [facility] Strep A Nucleic Acid Negative Negative [facility] Comment:All test results mus t be correlated with clinical findings.This test has not been evaluated for monitoring treatment ofinfection.Additional follow-up testing using the culture method isrequired if the result is negative and clinical symptomspersist, or in the event of an acute rheumatic feveroutbreak. 08/04/2025 9:41 AM EDT 08/04/2025 9:46 AM EDT us Generic External Data Provider LAB MICROBIOLOGY - GENERAL ORDERABLES Final Result Performing Organization Address [facility] Co de Phone Number [facility] [address] [place] [phone] * COVID-19 ID NOW ([place]) (08/04/2025 9:41 AM EDT) IDNOW SERIAL# [id number] [facility] COVID-19 TEST Negative Negative [facility] COVID-19 NOTE See Note [facility] Comment: Results are for the identification of SARS-CoV2 RNA. TheSARS-CoV2 RNA is generally detectable in respiratory samplesduring the acute phase of infection. Positive results areindicative of the presence of SARS-CoV-2 RNA; clinicalcorrelation with patient history and other diagnosticinformation is necessary to determine patient infectionstatus. Positive results do not rule out bacterial infectionor co- infection with other viruses.Testing facilities within the [facility] and [facility] are required to report all positive results tothe appropriate public health authorities.Negative results should be treated as presumptive and, ifinconsistent with clinical signs and symptoms or necessaryfor patient management, should be tested with differentauthorized or cleared molecular tests. Negative results donot preclude SARS-CoV2 RNA infection and should not be usedas the sole basis for patient management decisions. Negativeresults should be considered in the context of a patient'srecent exposures, history and the presence of clinical signsand symptoms consistent with COVID-19.This test has been authorized by the FDA under an EmergencyUse Authorization (EUA) for use by authorized laboratories.Testing performed on the [place] ID NOW utilizing NAAT. 08/04/2025 9:41 AM EDT 08/04/2025 9:46 AM EDT us Generic External Data Provider LAB MOLECULAR RADHA GNOSTICS ORDERABLES Final Result Performing Organization Address City/[facility]/ZIP Co de Phone Number [facility] [address] [place] [address] [place] [phone] * High Sensitivity Troponin I (08/04/2025 9:41 AM EDT) Only the most recent of2 resultswithin the time period is included. [facility] TROPONIN I HIGH SENSITIVITY <2.7 <3.5 - 17.0 ng/L [facility] Comment:The [place]ana high sens itivity Troponin-I results should beused in conjunction with other diagnostic information suchas ECG, clinical observations and information, and patientsymptoms to aid in the diagnosis of [place]. 08/04/2025 9:41 AM EDT 08/04/2025 9:46 AM EDT us Generic External Data Provider LAB BLOOD ORDERAB LES Final Result [facility] [address] [place] [phone] * CBC auto differential (08/04/2025 9:41 AM EDT) Only the most recent of3 resultswithin the time period is included. [facility] White Blood Count 8.6 4.8 - 10.8 X10*3/uL [facility] Red Blood Count 5.27 4.20 - 5.50 X10*6/uL [facility] Hemoglobin 15.2 12.0 - 16.0 g/dl [facility] Hematocrit 45.1 37.0 - 47.0 % [facility] Mean Corpuscular Volume 85.6 80.0 - 98.0 fL [facility] Mean Corpuscular Hemoglobin 28.8 27.0 - 33.0 pg [facility] Mean Corpuscular HGB Conc 33.7 31.0 - 35.0 g/dl [facility] Red Cell Distribution Width 12.6 11.0 - 16.0 % [facility] Platelet Count 276 160 - 400 X10*3/uL [facility] Mean Platelet Volume 9.8 9.4 - 12.3 fL [facility] Neutrophils Percent Auto 65.1 45 - 73 % [facility] Imm Gran Pct Auto 0.2 0.0 - 0.4 % [facility] [facility] Lymphocytes Percent Auto 24.5 20 - 40 % [facility] Monocytes Percent Auto 8.3 2 - 11 % [facility] Eosinophils Percent Auto 1.4 0 - 4 % [facility] Basophils Percent Auto 0.5 0 - 2 % [facility] NRBC Pct Auto 0.0 0.0 - 0.2 /100WBC [facility] Neutrophils Absolute Auto 5.6 2.0 - 8.3 x10*3/uL [facility] Imm Gran Abs Auto 0.02 0.00 - 0.03 X10*3/uL [facility] Lymphocytes Absolute Auto 2.1 1.2 - 4.9 X10*3/uL [facility] Monocytes Absolute Auto 0.7 0.1 - 1.2 X10*3/uL [facility] Eosinophils Absolute Auto 0.1 0.0 - 0.4 X10*3/uL [facility] Basophils Absolute Auto 0.0 0.0 - 0.2 X10*3/uL [facility] NRBC Abs Auto 0.000 0.0 - 0.012 X10*3/uL [facility] 08/04/2025 9:41 AM EDT 08/04/2025 9:46 AM EDT us Generic External Data Provider LAB BLOOD ORDERAB LES Final Result [facility] [address] [place] [phone] [phone] * (ABNORMAL) Comprehensive Metabolic Panel (08/04/2025 9:41 AM EDT) Only the most recent of2 resultswithin the time period is included. Sodium 142 135 - 145 mmol/L [facility] Potassium 4.1 3.3 - 5.1 mmol/L [facility] Chloride 104 96 - 108 mmol/L [facility] Carbon Dioxide 26 22 - 29 mmol/L [facility] Anion Gap 16 12 - 20 [facility] Urea Nitrogen (BUN) 5(L) 9 - 16 mg/dL [facility] Creatinine, Serum 0.65 0.5 - 1.4 mg/dL [facility] Creatinine Clr Calc Pharmacy 85.2 [facility] Comment:Provided height and weight: 160.02 cm,68.039 kg.eGFR (calculated from the MDRD study equation) and eCrCl(calculated from the Cockcroft-Gault equation) are based ondifferent parameters and may not yield comparable results.If eCrCl result is absurd, please check patient'sheight/weight. Estimated Glomerular Filt Rate >60 [facility] Comment:Chronic Kidney Disea se: Estimated GFR < 60 mL/min/1.83v1[place]ah Kidney Disease: Estimated GFR < 15 mL/min/1.73m2 Glucose 111 60 - 115 mg/dL [facility] Calcium 10.0 8.4 - 10.2 mg/dL [facility] Bilirubin, Total 0.5 0.0 - 1.0 mg/dL [facility] Aspartate Amino Transferase 35(H) 5 - 31 U/L [facility] Alanine Aminotransferase 24 0 - 31 U/L [facility] Total Protein 7.6 6.5 - 8.0 g/dL [facility] Albumin Level 5.0 3.5 - 5.0 g/dL [facility] Alkaline Phosphatase 100 39 - 117 U/L [facility] 08/04/2025 9:41 AM EDT 08/04/2025 9:46 AM EDT us Generic External Data Provider LAB BLOOD ORDERAB LES Final Result [facility] [address] [place] [phone] * US Renal Complete (08/03/2025 10:27 AM EDT) Anatomical Region Laterality Modality Kidney Ultrasound 08/03/2025 10:2 7 AM EDT Narrative 08/03/2025 11:24 AM EDT [place] [address] Ultrasound Report Signed Patient: Itzel Duncan MR#: [id number] 3 : 1965 Acct:[id number] Age/Sex: 60 / F ADM Date: 08/03/25 Loc: HO.US Attending Dr: Taylor PARADA Ordering Physician: Taylor Comer Date of Service: 08/03/25 Procedure(s): US renal BI Accession Number(s): [id number] cc: [facility]; [facility] Reason for Exam: N20.0 - Calculus of kidney EXAMINATION: US RETROPERITONEAL LIMITED (RENAL ONLY) CLINICAL INFORMATION: Calculus of kidney. COMPARISON: April 10, 2024. TECHNIQUE: Real-time ultrasound kidneys using grayscale technique with a curvilinear transducer. FINDINGS: RIGHT KIDNEY: 11 x 5 x 4 cm (SAG x AP x TRV). Volume: 114 cc. Normal echotexture. Renal cortical thickness is normal. No hydronephrosis. No solid lesion. There is a 1.1 cm anechoic lesion at the corticomedullary junction of the upper pole without septations or nodular components. LEFT KIDNEY: 10 x 4 x 4 cm (SAG x AP x TRV). Volume: 86 cc. Normal echotexture. Renal cortical thickness is normal. No hydronephrosis. No solid lesion. There is a 1.2 cm well-defined anechoic lesion at the renal cortex of the midportion without septations or nodular components. US/US renal BI IMPRESSION: Bilateral renal cysts. No hydronephrosis.. Electronically signed by: Prince Macdonald MD 08/03/2025 11:21 AM EDT Dictated By: Prince Buckner MD Signed By: <Electronically signed by Prince Ray MD in OV> 08/03/25 1121 DD/ 1027 TD/TT: 08/03/25 1051 Chief Technologist: Procedure Note Donotuseinterpreter, Image - 08/03/[address] [address] Ultrasound Report Signed Patient: Itzel Duncan EMR#: [id number] 3 : 1965Acct:[id number] Age/Sex: 60 / FADM Date: 08/03/25 Loc: HO.US Attending Dr: Taylor BRISENO Ordering Physician: Taylor Comer Date of Service: 08/03/25 Procedure(s): US renal BI Accession Number(s): [id number] cc: [facility]; [facility] Reason for Exam: N20.0 - Calculus of kidney EXAMINATION: US RETROPERITONEAL LIMITED (RENAL ONLY) CLINICAL INFORMATION: Calculus of kidney. COMPARISON: April 10, 2024. TECHNIQUE: Real-time ultrasound kidneys using grayscale technique with a curvilinear transducer. FINDINGS: RIGHT KIDNEY: 11 x 5 x 4 cm (SAG x AP x TRV). Volume: 114 cc. Normal echotexture. Renal cortical thickness is normal. No hydronephrosis. No solid lesion. There is a 1.1 cm anechoic lesion at the corticomedullary junction of the upper pole without septations or nodular components. LEFT KIDNEY: 10 x 4 x 4 cm (SAG x AP x TRV). Volume: 86 cc. Normal echotexture. Renal cortical thickness is normal. No hydronephrosis. No solid lesion. There is a 1.2 cm well-defined anechoic lesion at the renal cortex of the midportion without septations or nodular components. US/US renal BI IMPRESSION: Bilateral renal cysts. No hydronephrosis.. Electronically signed by: Prince Macdonald MD 08/03/2025 11:21 AM EDT RP Dictated By: Prince Buckner MD Signed By: <Electronically signed by Prince Ray MDin OV> 08/03/25 1121 DD/ 1027 TD/TT: 08/03/25 1051 Chief Technologist: [facility] External Provider IMG US PROCEDURES Final Result * Vitamin B12/Folate, Serum Panel (07/09/2025 10:20 AM EDT) Vitamin B12 570 200 - 900 pg/mL [facility] Comment:NORMAL 200-900 PG/ML INDETERMINATE 160-199 PG/ML DEFICIENT < 160 PG/ML Folate 5.7 > or = 4.0 ng/mL [facility] Comment:Reference Values:> o r = 4.0 ng/mL< 4.0 ng/mL suggests folate deficiency Methotrexate, aminopterin and folinic acid(leucovorin) are chemotherapeutic agents whose molecularstructures are similar to folate; therefore, the Architectfolate assay cannot be used for patients using these drugs. Blood Venous blood specimen / Unknown 07/09/2025 10:20 AM EDT 07/09/2025 11:13 AM EDT [facility] 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 LAB BLOOD ORDERABLES Final Re sult [facility] [address] [place] [phone] * (ABNORMAL) Urinalysis, Complete, with Reflex to Culture (07/09/2025 10:20 AM EDT) Color Urine Dark Yellow [facility] Appearance Urine Clear [facility] PH 6.0 5.0 - 9.0 [facility] Glucose Urine UA Negative Negative mg/dL [facility] Urine Blood Negative Negative [facility] Specific [place] - Urine 1.025 1.005 - 1.025 [facility] Urine Protein 30 (1+)(A) Neg-Trace mg/dL [facility] Urine Ketones Trace Negative mg/dL [facility] Nitrite Urine Negative Negative [facility] Leukocyte Esterase Urine Moderate (2+)(A) Negative [facility] RBC Urine 0-2 0 - 2 /HPF [facility] Urine WBC 11-20(A) 0 - 5 /HPF [facility] Urine Squamous Epithelial Cell 11-20 0 - 2 /HPF [facility] Urine Bacteria 4+ None Seen [facility] Hyaline Casts, Urine 11-20 0 - 2 /LPF [facility] GRANULAR CASTS (#/HPF) IN URINE Present [facility] Urine 07/09/2025 10:2 0 AM EDT 07/09/2025 11:02 AM EDT Narrative [facility] - 07/09/2025 12:01 PM EDT Urine, Clean Catch [facility] LAB URINE ORDERABLES Final Re sult Performing Organization Address [facility]/ZIP Co de Phone Number [facility] [address] [place] [phone] * TSH W/Reflex to FT4 (07/09/2025 10:20 AM EDT) TSH reflex Free T4 1.19 0.32 - 4.0 uIU/mL [facility] Blood Venous blood specimen / Unknown 07/09/2025 10:20 AM EDT 07/09/2025 11:13 AM EDT [facility] LAB BLOOD ORDERABLES Final Re sult Performing Organization Address [facility]/ZIP Co de Phone Number [facility] [address] [place] [phone] * Lipid Panel, Standard (07/09/2025 10:20 AM EDT) Triglycerides 112 <150 mg/dL [facility] Comment:Desirable Triglyceri de: less than 150 mg/dLBorderline High Triglyceride 150-199 mg/dLHigh Triglyceride: 200-499 mg/dLVery High Triglyceride: greater than or equal to 5OO mg/dL Cholesterol 153 <200 mg/dL [facility] Comment:Desirable Cholestero l: less than 200 mg/dLBorderline High Cholesterol: 200-239 mg/dLHigh Cholesterol: greater than 239 mg/dL LDL Cholesterol Calculated 71 <100 mg/dL [facility] Comment:Desirable LDL: less than 100 mg/dLNear Optimal/Above Optimal LDL: 110- 129 mg/dLBorderline High LDL: 130-159 mg/dLHigh LDL: 160-189 mg/dLVery High LDL: greater than or equal to 190 mg/dL HDL Cholesterol 60 >40 mg/dL [facility] Comment:Desirable HDL: great er than 40 mg/dL Note: This HDL assay may give artificially low results in patients with liver disease. Blood Venous blood specimen / Unknown 07/09/2025 10:20 AM EDT 07/09/2025 11:13 AM EDT [facility] 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 LAB BLOOD ORDERABLES Final Re sult Performing Organization Address [facility]/ZIP Co de Phone Number [facility] [address] [place] [address] [phone] * (ABNORMAL) Bacterial Vaginosis Panel (07/09/2025 9:51 AM EDT) TRICHOMONAS VAGINALIS DETECTION BY PCR NOT DETECTED Not Detect [facility] BACTERIAL VAGINOSIS DETECTION BY PCR POSITIVE(A) Negative [facility] Comment:The BV organism targ ets [...] GROUP DETECTION BY PCR DETECTED(A) Not Detect [facility] Elisabeth glab krusei PCR NOT DETECTED Not Detect [facility] Swab Vaginal structure / Unknown 07/09/2025 9:51 AM EDT 07/09/2025 6:10 PM EDT [facility] - GENERAL OR DERABLES Final Result Performing Organization Address City/[facility]/ZIP Co de Phone Number [facility] [address] [place] [phone] * Chlamydia/N. Gonorrhoeae RNA, TMA, Vaginal (07/09/2025 9:51 AM EDT) CT PCR NOT DETECTED Not Detect. [facility] Comment:A not detected test result [...] psychologicalconsequences. NG PCR NOT DETECTED Not Detect. [facility] Comment:A not detected test result [...] 9:51 AM EDT 07/09/2025 6:10 PM EDT [facility] LAB MICROBIOLOGY - GENERAL OR DERABLES Final Result [facility] [address] [place] [phone] * Culture, Urine, Routine (07/09/2025 12:00 AM EDT) Urine Urine specimen obtained by clean catch procedure / Unknown 07/09/2025 07/09/2025 Comment:CC Narrative [facility] - 07/10/2025 7:57 AM EDT Urine Culture No growth. Specimen Source: Urine clean catch [facility] LAB MICROBIOLOGY - GENERAL OR DERABLES Final Result Performing Organization Address City/[facility]/ZIP Co de Phone Number [facility] [address] [place] [phone] * Magnesium (06/21/2025 12:01 PM EDT) Pathologist [facility] Magnesium 2.1 1.6 - 2.6 mg/dL [facility] 06/21/2025 12:0 1 PM EDT 06/21/2025 12:04 PM EDT Generic External Data Provider LAB BLOOD ORDERAB LES Final Result Performing Organization Address [facility]/ZIP Co de Phone Number [facility] [address] [place] [phone] * Lipase (06/21/2025 12:01 PM EDT) Pathologist [facility] Lipase 32 8 - 78 U/L [facility] 06/21/2025 12:0 1 PM EDT 06/21/2025 12:04 PM EDT Generic External Data Provider LAB BLOOD ORDERAB LES Final Result Performing Organization Address [facility] Co de Phone Number [facility] [address] [place] [phone] * Hepatitis C Antibody ([place] DP) (04/20/2025) Pathologist [facility] Hepatitis C Ab Nonreactive Blood 04/20/2025 Historical Provider LAB BLOOD ORDERABLES [place] l Result * HIV Ab/Ag (MARLENI DP) (04/20/2025) HIV Ag/Ab Nonreactive Blood 04/20/2025 Historical Provider LAB BLOOD ORDERABLES [place] l Result * Hm Pap Smear (02/01/2023) Pap smear PERFORMED Comment:HPV MRNA NOT DETECTE D [facility] Provider HEALTH MAINTENANCE Final Result * Colonoscopy (07/24/2015 8:38 AM EDT) [facility] Provider HEALTH MAINTENANCE Final Result from Last 3 Months or Most Recently Relevant to Health Maintenance [place] [address] [address] [place] [address] C3 [facility] MEDICAID STAND ADULT Care Teams Ladle Handler Relationship Specialty Start Date End Date GeorgiCharlotte garcia FNP [address] [place] [phone] PCP - General Family Medicine 06/09/22 Pete Shultz, SHARI [address] [place] [address] Registered Nurse Family Medicine 06/22/25
--- OUTSIDE RECORDS SUMMARY | 2025-08-30 19:05 | XMS_ITS | Encounter Summary ---
Author Organization [employer] Address [address] [facility] 7t [place] [address] Care Team Providers Care Mixer Lever Operator Name Role Phone [facility] Primary Care Provider [phone] Pete Shultz RN Unavailable [phone] Jacinta Bajwa Unavailable Reason for Visit * Reason Onset Date Comments Referral Letter 02/21/2025 Encounter Details Date Type Department Care Team ([facility] st Contact Info) Description 02/21/2025 Telephone [facility] MEDICINE [address] [place], [place] [phone] [facility] 230 [place], [place] [phone] Referral Letter Social History Tobacco Use Types [...] be sent via mail. Referral: Neurology - [address] [place] [address] Floor [address] [place] [phone] Pt states is unable to get (type) [...] documented as of this encounter Care Teams Mixer Lever Operator Relationship Specialty Start Date End Date Charlotte Laureano FNP [address] [place] [phone] PCP - General Family Medicine 06/09/22 Pete Shultz RN [address] [place] [address] Registered Nurse Family Medicine 06/22/25 Jacinta Bajwa 06/22/25 07/30/25 documented as of this encounter
--- OUTSIDE RECORDS SUMMARY | 2025-08-30 19:05 | XMS_ITS | Encounter Summary ---
Author Organization [employer] Address [address] [facility] 7t [place] [address] Care Team Providers Care Blockman Name Role Phone Georgi [facility] Primary Care Provider [phone] Pete Shultz RN Unavailable [phone] Jacinta Bajwa Unavailable Encounter Details Date Type Department Care Team (Late st Contact Info) Description 05/25/2024 Orders Only [facility] [address] [place] [address] Noreen Krishnamurthy, SHARI Social History Tobacco Use [...] Time PHQ-9 Depression Total Score: 0 05/15/20 8:48 AM EDT documented as of this encounter Care Teams Blockman Relationship Specialty Start Date End Date Charlotte Laureano FNP [address] [place] [address] PCP - General Family Medicine 06/09/22 Pete Shultz RN [address] [place] [address] Registered Nurse Family Medicine 06/22/25 Jacinta Bajwa 06/22/25 07/30/25 documented as of this encounter
--- OUTSIDE RECORDS SUMMARY | 2025-08-30 19:05 | XMS_ITS | Encounter Summary ---
Author Organization [employer] Address [address] [facility] 7t [place] [address] Care Team Providers Care Dealer Sales Manager Name Role Phone [facility] Primary Care Provider [phone] Pete Shultz RN Unavailable [phone] Jacinta Bajwa Unavailable Encounter Details Date Type Department Care Team ([facility] st Contact Info) Description 01/25/2024 Telephone [facility] MEDICINE 230 [place], [place] [phone] [facility] 230 [place] [address] Social History Tobacco Use Types Packs/Day Years [...] documented as of this encounter Care Teams Dealer Sales Manager Relationship Specialty Start Date End Date Charlotte Laureano FNP 230 [place] [address] PCP - General Family Medicine 06/09/22 Pete Shultz RN [address] [place] [address] Registered Nurse Family Medicine 06/22/25 Jacinta Bajwa 06/22/25 07/30/25 documented as of this encounter
--- OUTSIDE RECORDS SUMMARY | 2025-08-30 19:05 | XMS_ITS | Encounter Summary ---
Author Organization [employer] Address [address] [facility] 7t [place] [address] Care Team Providers Care Electroencephalograph Technologist Name Role Phone Georgi [facility] Primary Care Provider [phone] Pete Shultz RN Unavailable [phone] Jacinta Bajwa Unavailable Encounter Details Date Type Department Care Team (Late st Contact Info) Description 01/19/2024 Orders Only [facility] MEDICINE [address] [place] [address] ProviderNidia MD Social History Tobacco Use Types [...] documented as of this encounter Care Teams Electroencephalograph Technologist Relationship Specialty Start Date End Date Charlotte Laureano FNP [address] [place] [address] PCP - General Family Medicine 06/09/22 Pete Shultz RN [address] [place] [address] Registered Nurse Family Medicine 06/22/25 Jacinta Bajwa 06/22/25 07/30/25 documented as of this encounter
--- OUTSIDE RECORDS SUMMARY | 2025-08-30 19:05 | XMS_ITS ---
Author Organization [employer] Address [address] [facility] 7t [place] [address] Care Team Providers Care Order Desk Caller Name Role Phone [facility] Primary Care Provider [phone] Pete Shultz RN Unavailable [phone] Status:Enrolled (Active) Start date:06/22/2025 Enrollment date:06/28/2025 Enrollment reason:ADT Feed Overview ADT- [facility] 06/21/25 Case Team Name Relationship Phone Pete Shultz RN(Responsible Staff) Registered Nurse [phone] Continued Care and Services Coordination
--- OUTSIDE RECORDS SUMMARY | 2025-08-30 19:05 | XMS_ITS | Encounter Summary ---
Author Organization [employer] Address [address] [facility] 7t [place] [address] Care Team Providers Care Property Coordinator Name Role Phone [facility] Primary Care Provider [phone] Pete Shultz RN Unavailable [phone] Jacinta Bajwa Unavailable Reason for Visit * Reason Onset Date Comments Lab Orders 11/16/2022 Encounter Details Date Type Department Care Team (Late st Contact Info) Description 11/16/2022 Telephone [facility] MEDICINE 230 [place] [address] [facility] 230 [place] [address] Lab Orders Social History Tobacco Use Types [...] blood work order Please contact pt at [phone] documented in this encounter Plan of Treatment Not on file documented as of this encounter Visit Diagnoses Not on filedocumented in this encounter Additional Health Concerns Assessment Noted Time PHQ-9 Depression Total Score: 0 11/13/19 23 1:38 PM EST documented as of this encounter Care Teams Property Coordinator Relationship Specialty Start Date End Date Charlotte Laureano FNP [address] [place] [address] PCP - General Family Medicine 06/09/22 Pete Shultz RN [address] [place] [address] Registered Nurse Family Medicine 06/22/25 Jacinta Bajwa 06/22/25 07/30/25 documented as of this encounter
--- OUTSIDE RECORDS SUMMARY | 2025-08-30 19:05 | XMS_ITS | Encounter Summary ---
Author Organization [employer] Address [address] [facility] 7t [place] [address] Care Team Providers Care Cashier Or Checker Stock Clerk Name Role Phone [facility] Primary Care Provider [phone] Pete Shultz RN Unavailable [phone] Jacinta Bajwa Unavailable Reason for Visit * Reason Onset Date Comments Med Refill 03/20/2024 Encounter Details Date Type Department Care Team (Late st Contact Info) Description 03/20/2024 Telephone [facility] MEDICINE 230 [place] [address] [facility] [address] [place] [address] Med Refill Social History Tobacco Use Types [...] 9:31 AM EDT Medication was sent to [facility] on 02/07/24 #180 with 2 refills. * Telephone Encounter - Stefania Cardenas - 03/20/2024 9:23 AM EDT TC from pt requesting medication refill. Medications needing refill : metFORMIN XR (Glucophage-XR) 500 MG 24 hr tablet To be sent to: [facility] - [place], [place] - [address] [facility] documented in this encounter Plan of Treatment Not on file documented as of this encounter Visit Diagnoses Not on filedocumented in this encounter Additional Health Concerns Assessment Noted Time PHQ-9 Depression Total Score: 0 12/22/19 9:02 AM EDT documented as of this encounter Care Teams Cashier Or Checker Stock Clerk Relationship Specialty Start Date End Date Charlotte Laureano FNP [address] [facility] [place] [address] PCP - General Family Medicine 06/09/22 Pete Shultz, SHARI [address] [place] [address] [place] [address] Registered Nurse Family Medicine 06/22/25 Jacinta Bajwa 06/22/25 07/30/25 documented as of this encounter
--- OUTSIDE RECORDS SUMMARY | 2025-08-30 19:05 | XMS_ITS | Encounter Summary ---
Author Organization [employer] Address [address] [facility] 7t [place] [address] Care Team Providers Care Bus And Rail Operator Name Role Phone [facility] Primary Care Provider [phone] Pete Shultz RN Unavailable [phone] Jacinta Bajwa Unavailable Reason for Visit * Reason Onset Date Comments Nurse Triage 11/10/2023 Encounter Details Date Type Department Care Team ([facility] st Contact Info) Description 11/10/[address] [facility] MEDICINE 230 [place], [place] [phone] [facility] 230 [place], [place] [phone] Nurse Triage Social History Tobacco Use Types [...] 10:49 AM EST Triage attempted x2 with [employer] Management Assistant ID [id number] . Both call went directly to message [...] accepted this outcome Please contact pt at [phone] (senegalese) documented in this encounter Plan of Treatment Not on file documented as of this encounter Visit Diagnoses Not on filedocumented in this encounter Additional Health Concerns Assessment Noted Time PHQ-9 Depression Total Score: 0 10/13/19 24 11:29 AM EST documented as of this encounter Care Teams Bus And Rail Operator Relationship Specialty Start Date End Date Charlotte Laureano FNP [address] [place] [address] PCP - General Family Medicine 06/09/22 Pete Shultz, SHARI [address] [place] [address] [place] [address] Registered Nurse Family Medicine 06/22/25 Jacinta Bajwa 06/22/25 07/30/25 documented as of this encounter
--- OUTSIDE RECORDS SUMMARY | 2025-08-30 19:05 | XMS_ITS | Encounter Summary ---
Author Organization [employer] Address 75 [facility] 7t [place] [address] Care Team Providers Care Tap Puller Name Role Phone [facility] Primary Care Provider [phone] Pete Shultz RN Unavailable [phone] Jacinta Bajwa Unavailable Reason for Visit * Reason Onset Date Comments Results 11/17/2023 Encounter Details Date Type Department Care Team ([facility] st Contact Info) Description 11/17/2023 Telephone [facility] MED[facility]INE 230 [place], [place] [phone] [facility] 230 [place], [place] [phone] Results Social History Tobacco Use Types Packs/Day [...] a PAP smear. Please contact pt at [phone] * Telephone Encounter - Dony Hanson - [...] documented as of this encounter Care Teams Tap Puller Relationship Specialty Start Date End Date Charlotte, Charlotte, ARCH SUPPORT MAKER [address] [place] [address] PCP - General Family Medicine 06/09/22 Pete Shultz, SHARI [address] [place] [address] Registered Nurse Family Medicine 06/22/25 Jacinta Bajwa 06/22/25 07/30/25 documented as of this encounter
--- OUTSIDE RECORDS SUMMARY | 2025-08-30 19:05 | XMS_ITS | Encounter Summary ---
Author Organization [employer] Address 75 [facility] 7t [place] [address] Care Team Providers Care Blind Stitch Machine Operator Name Role Phone [facility] Primary Care Provider [phone] Pete Shultz RN Unavailable [phone] Jacinta Bajwa Unavailable Reason for Visit * Reason Onset Date Comments Results 07/12/2023 Encounter Details Date Type Department Care Team ([facility] st Contact Info) Description 07/12/2023 Telephone [facility] MEDICINE 230 [place] [address] [facility] 230 [place], [place] [phone] Results Social History Tobacco Use Types Packs/Day [...] to pt. Through pacific interpreters id - [id number] for below message, pt. Was informed regarding normal lipids labs. Pt. Verbally agreed and understood. * Telephone Encounter - Stefania Cardenas - 07/13/2023 4:17 PM EDT Pt calling again requesting a call in regards to results of 07/08 labs. Please contact pt at [phone] (Mosotho) * Telephone Encounter - Maria De Jesus Shultz - 07/12/2023 9:14 AM EDT Tc from pt requesting a call in regards to results of 07/08 labs. Please contact pt at [phone] (Mosotho) documented in this encounter Plan of Treatment Not on file documented as of this encounter Visit Diagnoses Not on filedocumented in this encounter Additional Health Concerns Assessment Noted Time PHQ-9 Depression Total Score: 0 04/27/20 9:47 AM EDT documented as of this encounter Care Teams Blind Stitch Machine Operator Relationship Specialty Start Date End Date Charlotte Laureano FNP [address] [place] [address] PCP - General Family Medicine 06/09/22 Pete Shultz RN [address] [place] [address] Registered Nurse Family Medicine 06/22/25 Jacinta Bajwa 06/22/25 07/30/25 documented as of this encounter
--- OUTSIDE RECORDS SUMMARY | 2025-08-30 19:05 | XMS_ITS | Encounter Summary ---
Author Organization [employer] Address 75 [facility] 7t [place] [address] Care Team Providers Care Food And Drug Inspector Name Role Phone [facility] Primary Care Provider [phone] Pete Shultz RN Unavailable [phone] Jacinta Bajwa Unavailable Reason for Visit * Reason Onset Date Comments Referral 12/31/2023 Encounter Details Date Type Department Care Team ([facility] st Contact Info) Description 12/31/2023 Telephone [facility] MEDICINE 230 [place], [place] [phone] [facility] 230 [place], [place] [phone] Referral Social History Tobacco Use Types Packs/Day [...] a referral to the vision center at [facility]. A referral had been placed on 05/20/23 to [facility] eyecare for a history of glaucoma. Pt needs a new referral placed. Forwarding to provider * Telephone Encounter - Cami Workman - 12/31/2023 9:47 AM EDT TC from pt requesting new referral to vision center . Location: [facility] Address: [address] [place] [address] documented in this encounter Plan of Treatment Not on file documented as of this encounter Visit Diagnoses Not on filedocumented in this encounter Additional Health Concerns Assessment Noted Time PHQ-9 Depression Total Score: 0 12/22/19 24 9:02 AM EDT documented as of this encounter Care Teams Food And Drug Inspector Relationship Specialty Start Date End Date Charlotte Laureano FNP [address] [place] [address] PCP - General Family Medicine 06/09/22 Pete Shultz, RN [address] [place] [address] Registered Nurse Family Medicine 06/22/25 Jacinta Bajwa 06/22/25 07/30/25 documented as of this encounter
--- OUTSIDE RECORDS SUMMARY | 2025-08-30 19:05 | XMS_ITS | Encounter Summary ---
Author Organization [employer] Address 75 [facility] 7 [place] [address] Care Team Providers Care Machine Folder Name Role Phone [facility] Primary Care Provider [phone] Pete Shultz RN Unavailable [phone] Reason for Visit * Reason Comments Care Management C3CM- f/u call Encounter Details Date Type Department Care Team ([facility] st Contact Info) Description 08/28/2025 Patient Outreach [facility] 230 [place] [address] [facility] 230 [place] [address] Care Management (C3CM- f/u call) Social History Tobacco Use Types Packs/Day Years [...] AM EDT documented as of this encounter Progress Notes * Pete Shultz RN - 08/28/2025 10:48 AM EST CM Pete Shultz RN placed outbound call to patient [facility] in regards to remind patient of appt at [facility] for mammogram and US breast on 08/29/25 at 1:30pm and 2:00pm. Patient is also scheduled to see [facility] on 08/30/25 at1:00pm and she is also scheduled for an echo and EKG at 2:00pm and 5:00pm. Patient's name and was confirmed. Patient states she is aware and confirmed will be available and has no barriers on attending this appointment. Patient verbalized understanding and agrees with plan. documented in this encounter Plan of Treatment Not on file documented as of this encounter Visit Diagnoses Not on filedocumented in this encounter Additional Health Concerns Assessment Noted Time PHQ-9 Depression Total Score: 0 07/09/20 9:02 AM EDT documented as of this encounter Care Teams Machine Folder Relationship Specialty Start Date End Date Charlotte Laureano FNP [address] [place] [address] PCP - General Family Medicine 06/09/22 Pete Shultz RN [address] [place] [address] Registered Nurse Family Medicine 06/22/25 documented as of this encounter
--- OUTSIDE RECORDS SUMMARY | 2025-08-30 19:05 | XMS_ITS | Encounter Summary ---
Author Organization [employer] Address 75 [facility] 7t [place] [address] Care Team Providers Care Laboratory Asst Name Role Phone [facility] Primary Care Provider [phone] Pete Shultz RN Unavailable [phone] Jacinta Bajwa Unavailable Encounter Details Date Type Department Care Team ([facility] Contact Info) Description 07/27/2024 Telephone [facility] MEDICINE 230 [place], [place] [phone] [facility] 230 [place] [address] Social History Tobacco Use Types Packs/Day Years [...] documented as of this encounter Care Teams Laboratory Asst Relationship Specialty Start Date End Date Charlotte Laureano FNP 230 [place] [address] PCP - General Family Medicine 06/09/22 Pete Shultz RN [address] [place] [address] Registered Nurse Family Medicine 06/22/25 Jacinta Bajwa 06/22/25 07/30/25 documented as of this encounter
--- OUTSIDE RECORDS SUMMARY | 2025-08-30 19:05 | XMS_ITS | Encounter Summary ---
Author Organization [employer] Address 75 [facility] 7t [place] [address] Care Team Providers Care Gis Technician Name Role Phone [facility] Primary Care Provider [phone] Pete Shultz RN Unavailable [phone] Jacinta Bajwa Unavailable Reason for Visit * Reason Onset Date Comments Nurse Triage 11/09/2023 Encounter Details Date Type Department Care Team ([facility] st Contact Info) Description 11/09/2023 Telephone [facility] MEDICINE 230 [place], [place] [phone] [facility] 230 [place], [place] [phone] Nurse Triage Social History Tobacco Use Types [...] documented as of this encounter Care Teams Gis Technician Relationship Specialty Start Date End Date Charlotte Laureano FNP [address] [place] [address] PCP - General Family Medicine 06/09/22 Pete Shultz RN [address] [place] [address] [place]I [place]ak [address] Registered Nurse Family Medicine 06/22/25 Jacinta Bajwa 06/22/25 07/30/25 documented as of this encounter
--- OUTSIDE RECORDS SUMMARY | 2025-08-30 19:05 | XMS_ITS | Encounter Summary ---
Author Organization [employer] Address 75 [facility] 7t [place] [address] Care Team Providers Care Cardiothoracic Surgeon Name Role Phone [facility] Primary Care Provider [phone] Pete Shultz RN Unavailable [phone] Jacinta Bajwa Unavailable Reason for Visit * Reason Onset Date Comments Lab Orders 11/23/2022 Encounter Details Date Type Department Care Team (Late st Contact Info) Description 11/23/2022 Telephone [facility] MEDICINE 230 [place] [address] [facility] 230 [place] [address] Lab Orders Social History Tobacco Use Types [...] blood work order Please contact pt at [phone] documented in this encounter Plan of Treatment Not on file documented as of this encounter Visit Diagnoses Not on filedocumented in this encounter Additional Health Concerns Assessment Noted Time PHQ-9 Depression Total Score: 0 11/13/19 23 1:38 PM EST documented as of this encounter Care Teams Cardiothoracic Surgeon Relationship Specialty Start Date End Date Charlotte Laureano FNP 230 [place] [address] PCP - General Family Medicine 06/09/22 Pete Shultz RN [address] [place] [address] Registered Nurse Family Medicine 06/22/25 Jacinta Bajwa 06/22/25 07/30/25 documented as of this encounter
--- OUTSIDE RECORDS SUMMARY | 2025-08-30 19:05 | XMS_ITS | Encounter Summary ---
Author Organization [employer] Address 75 [facility] 7t [place] [address] Care Team Providers Care Mill Tender Second Operator Name Role Phone [facility] Primary Care Provider [phone] Pete Shultz RN Unavailable [phone] Jacinta Bajwa Unavailable Reason for Visit * Reason Onset Date Comments Hospital Follow-up 11/04/2023 Encounter Details Date Type Department Care Team (Late st Contact Info) Description 11/04/2023 Telephone [facility] MEDICINE 230 [place], [place] [phone] [facility], [facility] 230 [place], [place] [phone] Hospital Follow-up Social History Tobacco Use Types [...] from pt requesting a HDF appt. Hospital: [facility] Date of admission: 10/28 Discharge date: 11/04 Diagnosed: schizophrenia Disorder Please Call [facility] at [phone] documented in this encounter Plan of Treatment Not on file documented as of this encounter Visit Diagnoses Not on filedocumented in this encounter Additional Health Concerns Assessment Noted Time PHQ-9 Depression Total Score: 0 10/13/19 24 11:29 AM EST documented as of this encounter Care Teams Mill Tender Second Operator Relationship Specialty Start Date End Date Charlotte Laureano FNP [address] [place] [address] PCP - General Family Medicine 06/09/22 Pete Shultz, SHARI [address] [place] [address] Registered Nurse Family Medicine 06/22/25 Jacinta Bajwa 06/22/25 07/30/25 documented as of this encounter
--- OUTSIDE RECORDS SUMMARY | 2025-08-30 19:05 | XMS_ITS | Encounter Summary ---
Author Organization [employer] Address 75 [facility] 7t [place] [address] Care Team Providers Care Butcher Meat Name Role Phone [facility] Primary Care Provider [phone] Pete Shultz RN Unavailable [phone] Jacinta Bajwa Unavailable Reason for Visit * Reason Onset Date Comments Lab Orders 02/25/2023 Encounter Details Date Type Department Care Team (Late st Contact Info) Description 02/25/2023 Telephone [facility] MEDICINE 230 [place] [address] [facility] 230 [place] [address] Lab Orders Social History Tobacco Use Types [...] - 03/15/2023 10:27 AM EDT T/C to [phone] through [employer] , Message states , The number you [...] PM EDT T/C placed to pt via [employer] Sewer Ana María #[id number]. Pt states she would like a lab [...] check for diabetes. Please contact pt at [phone] documented in this encounter Plan of Treatment Not on file documented as of this encounter Visit Diagnoses Not on filedocumented in this encounter Additional Health Concerns Assessment Noted Time PHQ-9 Depression Total Score: 0 11/13/19 23 1:38 PM EST documented as of this encounter Care Teams Butcher Meat Relationship Specialty Start Date End Date Charlotte Laureano FNP 230 [place] [address] PCP - General Family Medicine 06/09/22 Pete Shultz RN [address] [place] [address] Registered Nurse Family Medicine 06/22/25 Jacinta Bajwa 06/22/25 07/30/25 documented as of this encounter
--- OUTSIDE RECORDS SUMMARY | 2025-08-30 19:05 | XMS_ITS | Encounter Summary ---
Author Organization [employer] Address 75 [facility] 7t [place] [address] Care Team Providers Care Belt Brander Name Role Phone [facility] Primary Care Provider [phone] Pete Shultz RN Unavailable Jacinta Bajwa Unavailable Reason for Visit * Reason Onset Date Comments Lab Orders 12/07/2022 Encounter Details Date Type Department Care Team ([facility] st Contact Info) Description 12/07/2022 Telephone [facility] MEDICINE 230 [place] [address] [facility] 230 [place] [address] Lab Orders Social History Tobacco Use Types [...] documented as of this encounter Care Teams Belt Brander Relationship Specialty Start Date End Date Georgi, Charlotte, DAO 230 [place] [address] PCP - General Family Medicine 06/09/22 Pete Shultz RN [address] [place] [address] Registered Nurse Family Medicine 06/22/25 Jacinta Bajwa 06/22/25 07/30/25 documented as of this encounter
--- OUTSIDE RECORDS SUMMARY | 2025-08-30 19:05 | XMS_ITS | Encounter Summary ---
Author Organization [employer] Address 75 [facility] 7t [place] [address] Care Team Providers Care Hand Tool Filer Name Role Phone [facility] Primary Care Provider [phone] Pete Shultz RN Unavailable [phone] Jacinta Bajwa Unavailable Reason for Visit * Reason Onset Date Comments Med Refill 03/31/2024 Encounter Details Date Type Department Care Team (Late st Contact Info) Description 03/31/2024 Telephone [facility] MEDICINE 230 [place] [address] [facility] 230 [place] [address] Med Refill Social History Tobacco Use Types [...] 9:40 AM EDT Script was sent to [facility] on 02/07/24 90 day supply with 2 refills. * Telephone Encounter - Stefania Cardenas - 03/31/2024 9:25 AM EDT TC from pt requesting medication refill. Medications needing refill : metFORMIN XR (Glucophage-XR) 500 MG 24 hr tablet To be sent to: [facility] [place], [place] - [address] [facility] documented in this encounter Plan of Treatment Not on file documented as of this encounter Visit Diagnoses Not on filedocumented in this encounter Additional Health Concerns Assessment Noted Time PHQ-9 Depression Total Score: 0 12/22/19 9:02 AM EDT documented as of this encounter Care Teams Hand Tool Filer Relationship Specialty Start Date End Date Charlotte Laureano FNP [address] [place] [address] PCP - General Family Medicine 06/09/22 Pete Shultz, RN [address] [place] [address] [place] [address] Registered Nurse Family Medicine 06/22/25 Jacinta Bajwa 06/22/25 07/30/25 documented as of this encounter
--- OUTSIDE RECORDS SUMMARY | 2025-08-30 19:05 | XMS_ITS | Encounter Summary ---
Author Organization [employer] Address 75 [facility] 7t [place] [address] Care Team Providers Care Assembler Arranger Name Role Phone [facility] Primary Care Provider [phone] Pete Shultz RN Unavailable [phone] Jacinta Bajwa Unavailable Reason for Visit * Reason Onset Date Comments call back 11/26/2022 Encounter Details Date Type Department Care Team (Late st Contact Info) Description 11/26/2022 Telephone [facility] MEDICINE 230 [place] [address] [facility] 230 [place] [address] call back Social History Tobacco Use Types [...] AM EST TC returned to pt at [phone], utilizing [employer] Operations Director ID:[id number], regarding message belowper [facility]. Pt informed labs show high [...] she can obtain copy of labs at [facility] Medical Records in basement. Pt verbalized understanding. Pt to F/U as needed. ----- Message from [facility] sent at 11/26/2022 8:44 AM [...] as of this encounter Care Teams Assembler Arranger Relationship Specialty Start Date End Date [facility] 230 [place] [address] PCP - General Family Medicine 06/09/22 Pete Shultz, SHARI [address] [place] [address] Registered Nurse Family Medicine 06/22/25 Jacinta Bajwa 06/22/25 07/30/25 documented as of this encounter
--- OUTSIDE RECORDS SUMMARY | 2025-08-30 19:05 | XMS_ITS | Encounter Summary ---
Author Organization [employer] Address [address] [place] [address] 7 [place] [address] Care Team Providers Care Technical Operations Specialist Name Role Phone [facility] Primary Care Provider [phone] Pete Shultz RN Unavailable [phone] Jacinta Bajwa Unavailable Encounter Details Date Type Department Care Team (Late st Contact Info) Description 01/22/2023 Telephone [facility] MEDICINE 230 [place] [address] [facility] 230 [place] [address] Social History Tobacco Use Types Packs/Day Years [...] documented as of this encounter Care Teams Technical Operations Specialist Relationship Specialty Start Date End Date [place] [facility] [address] [place] [address] PCP - General Family Medicine 06/09/22 Pete Shultz RN [address] [place] [address] [place] [address] Registered Nurse Family Medicine 06/22/25 Jacinta Bajwa 06/22/25 07/30/25 documented as of this encounter
--- OUTSIDE RECORDS SUMMARY | 2025-08-30 19:05 | XMS_ITS | Encounter Summary ---
Author Organization [employer] Address 75 [facility] 7t [place] [address] Care Team Providers Care Salon Coordinator Name Role Phone [facility] Primary Care Provider [phone] Pete Shultz RN Unavailable [phone] Jacinta Bajwa Unavailable Reason for Visit * Reason Onset Date Comments Results 10/14/2023 Encounter Details Date Type Department Care Team ([facility] st Contact Info) Description 10/14/2023 Telephone [facility] MEDICINE 230 [place], [place] [phone] [facility] 230 [place], [place] [phone] Results Social History Tobacco Use Types Packs/Day [...] regards to results. Please contact pt at [phone] * Telephone Encounter - Maria De Jesus Shultz - 10/15/2023 9:06 AM EST Tc from pt calling in regards to results. Please contact pt at [phone] * Telephone Encounter - Maria De Jesus Shultz - 10/14/2023 2:43 PM EST TC from pt requesting call back regarding Results. Type of results: labs Date when done: 10/13 Facility: [facility] documented in this encounter Plan of Treatment Not on file documented as of this encounter Visit Diagnoses Not on filedocumented in this encounter Additional Health Concerns Assessment Noted Time PHQ-9 Depression Total Score: 0 10/13/19 24 11:29 AM EST documented as of this encounter Care Teams Salon Coordinator Relationship Specialty Start Date End Date Charlotte Laureano FNP [address] [place] [address] PCP - General Family Medicine 06/09/22 Pete Shultz RN [address] [place] [address] Registered Nurse Family Medicine 06/22/25 Jacinta Bajwa 06/22/25 07/30/25 documented as of this encounter
== END ==
LOC: HO.CARD 13:38
PROVIDERS: PCP Registered Nurse; Visit Provider Registered Nurse
DX: R00.0 Tachycardia, unspecified (principal)
CPT/HCPCS: 93225; 93306

== ENCOUNTER → 2025-08-30 13:43 | Outpatient (BNV) | payer MEDICAID, SELFPAY | PROVIDERS: PCP Registered Nurse; Visit Provider Internal Medicine | DX: R00.0 Tachycardia, unspecified (principal) | CPT/HCPCS: 93306 ==

== ENCOUNTER 2025-09-14 11:28 | Outpatient (REF) | payer MEDICAID, SELFPAY ==
--- NOTE | ~2025-09-14 | XR_ITS ---
EXAMINATION: XR CHEST 2 VIEWS HISTORY: RUL rhonchi, fever, chills, tachycardic COMPARISON: Comparison is made with the prior examination dated 08/04/2025. FINDINGS: PA and lateral views of the chest are submitted. The lungs are expanded and clear. There is no pleural effusion, pneumothorax, or pulmonary vascular congestion. The heart is normal in size. The bones are intact. XR/XR chest 2V IMPRESSION: No acute cardiopulmonary abnormality. Electronically signed by: Pool Don MD 09/14/2025 11:48 AM LEYLA
== END 2025-09-14 11:29 | disposition home or self-care (01) ==
LOC: HO.HHCX 11:28
PROVIDERS: Visit Provider General Practice
DX: B34.9 Viral infection, unspecified (principal)
CPT/HCPCS: 71046

== ENCOUNTER → 2025-09-14 11:28 | Outpatient (BNV) | payer MEDICAID, SELFPAY | PROVIDERS: Visit Provider Radiology Diagnostic Radiology | DX: R00.0 Tachycardia, unspecified (principal); R50.9 Fever, unspecified; R09.89 Other specified symptoms and signs involving the circulatory and respiratory systems | CPT/HCPCS: 71046 ==

== ENCOUNTER 2025-09-19 16:00 | Emergency (ER) | payer MEDICAID, SELFPAY ==
[2025-09-19 16:06] VITALS: BP 162/74; PULSE 129; RESP 20; TEMP 36.1; O2SAT 96; BMI 27.1
--- NOTE | 2025-09-19 16:12 | ED.GENADULT ---
HPI - General Adult General Chief complaint: Headache Stated complaint: multiple complaints Time Seen by Provider: 09/19/25 20:46 Source: patient and family Mode of arrival: ambulatory Limitations: language barrier ( [employer] services utilized.) History of Present Illness ED Provider: Moncho HUDDLESTON HPI narrative: The patient is a 60-year-old female with a history of migraines, tardive dyskinesia, schizophrenia, and kidney stones, presenting for evaluation of three days of bilateral ear pain with the associated frontal headache consistent with her typical migraines, body aches, subjective chills, sinus congestion with rhinorrhea, and occasional sore throat. The patient also reports a burning sensation in her eyes. The patient denies associated objective fever, vomiting, diarrhea, recent fall or other blunt head trauma, otorrhea, anticoagulation, dysuria, hematuria, or recent sick contacts. The patient reports she was taking Naprosyn however this began upsetting her stomach, went to urgent care and was advised to take Tylenol in place of Naprosyn, patient reports taking multiple doses of Tylenol without significant relief. The patient reports Naprosyn as an allergy however confirms Naprosyn sensitivity is upset stomach no history of anaphylaxis or rash. Related Data Home Medications ?Medication ?Instructions ?Recorded ?Confirmed doxepin 25 mg capsule 25 - 50 mg PO BEDTIME 04/28/24 01/01/25 nortriptyline 25 mg capsule 25 mg PO BEDTIME 07/26/24 01/01/25 haloperidol 5 mg tablet 5 mg PO QAM 01/16/25 haloperidol 10 mg tablet 10 mg PO BEDTIME 02/13/25 Previous Rx's ?Medication ?Instructions ?Recorded atorvastatin 80 mg tablet 1 tab PO BEDTIME 30 days #30 tabs 11/04/23 cholecalciferol (vitamin D3) 50 1 cap PO DAILY 30 days #30 caps 11/04/23 mcg (2,000 unit) capsule clonazepam 1 mg tablet 1 tab PO BEDTIME PRN anxiety 30 11/04/23 days #30 tabs lithium carbonate 450 mg 450 mg PO BID 30 days #60 tabs 11/04/23 tablet,extended release metformin 500 mg tablet,extended 500 mg PO QPM 30 days #30 tabs 11/04/23 release 24 hr multivitamin 1 tab PO DAILY 30 days #30 tabs 11/04/23 pyridoxine (vitamin B6) 100 mg 100 mg PO DAILY 90 days #90 tabs 11/04/23 tablet docusate sodium 100 mg capsule 100 mg PO BEDTIME #90 caps 04/28/24 bisacodyl 5 mg tablet,delayed 10 mg (2 x 5 mg) PO BEDTIME #180 07/26/24 release (Dulcolax (bisacodyl)) tabs benztropine 0.5 mg tablet 0.5 mg PO BID #180 tabs 06/19/25 hydroxyzine HCl 25 mg tablet 25 mg PO TID PRN itching #10 tabs 08/04/25 Allergies Allergy/AdvReac Type Severity Reaction Status Date / Time naproxen AdvReac Unknown Verified 09/19/25 16:10 Review of Systems Review of Systems: Yes all other systems are reviewed and are negative PMFSH Past Medical History Medical History (Updated 09/19/25 @ 22:56 by Moncho Marroquin PA-C) Schizophrenia, paranoid type Paranoid delusion Renal cyst Anxiety Elevated cholesterol Occasional tremors Surgical History Hx of colonoscopy Hx of section Hx of tubal ligation Social History Social History Household Members: None Housing: Apartment Do you presently have visiting nurse or other home services: No Alcohol intake: never Patient Tobacco Use Status: Never used Tobacco Tobacco use type: Cigarette e-Cigarette/Vaping Use: Former Use Second Hand Smoke Exposure: No Substance Use Type: Caffiene Advance Directives: No Advance Directives Information Provided: No Do you have a plan to hurt others: No Plan service: No Sexual orientation: Straight/Heterosexual Physical Exam ED Vital Signs: Vital Signs - 24 hr 09/19/25 16:06 Temperature 97.0 F Pulse Rate 129 H Respiratory Rate 20 Blood Pressure 162/74 H Pulse Oximetry 96 Oxygen Delivery Method Room Air BMI result Body Mass Index 27.1 CONSTITUTIONAL: The patient appears uncomfortable but otherwise non-toxic, well nourished and in no acute distress. Vital signs as documented. HEAD: Atraumatic, normocephalic. EYES: EOMs grossly intact, pupils equal, conjunctiva clear, no exudate. ENT: Nares patent, no discharge. Airway patent, no audible stridor, visible mucosa is pink and moist without noted lesions. Posterior pharynx shows a midline nonedematous uvula, no peritonsillar swelling or exudate. Bilateral TMs are intact and without erythema, no obvious air-fluid levels or bulging. Bilateral ear canals are unremarkable. NECK: Trachea is midline, no obvious masses or gross abnormalities. CHEST: Symmetric movement, normal appearance. LUNGS: LS present and CTAB, no w/r/r. Non-labored work of breathing. CARDIAC: Regular Rhythm, S1/S2 appreciated, no murmurs, rubs or gallops. ABDOMEN: Abdomen soft and non-tender x4 quadrants, no palpable masses or organomegaly. : Deferred. EXTREMITIES: Normal tone, moves all extremities spontaneously without reported pain. No obvious acute injury or deformity noted. NEURO: Alert and oriented x3, CN II-XII appear grossly intact. Lip-smacking consistent with tardive dyskinesia is noted, cerebellar Functioning otherwise grossly intact. No obvious sensory or motor deficits. Speech clear and appropriate. PSYCH: normal affect, appropriate eye contact, fluid speech, with appropriate response to questioning. No reported suicidality or homicidality. SKIN: Warm, dry, color appropriate, normal turgor. No rashes noted. Course Course Course Narrative: This is an RME: Additional HPI, ROS, PE not included below will be deferred to primary provider. RME assessment and note performed by: Courtney Stone PA-C This is a 53-igwh-aoc-female, with a hx of schizophrenia-paranoid type, paranoid delusions, anxiety, hypercholesterolemia, tardive dyskinesia, kidney stones, who presents to the ER with a complaint of headache, dizziness. reporting migraine, watery eyes, bilateral ear pain, dizziness. Was given medications at urgent care but symptoms have not improved. Plan: Labs, EKG, viral swabs, further ER evaluation needed. Medications Administered Generic Name Dose Route Start Last Admin Trade Name Freq PRN Reason Stop Dose Admin Sodium Chloride 1,000 mls @ 999 mls/hr 09/19/25 22:15 09/19/25 22:11 Ns IV 09/19/25 23:15 999 mls/hr .Q1H1M RYNE Administration Discontinued Medications Generic Name Dose Route Start Last Admin Trade Name Freq PRN Reason Stop Dose Admin Dexamethasone Sodium Phosphate 10 mg 09/19/25 22:03 09/19/25 22:17 Dexamethasone Sod Phosphate 10 Mg/Ml Vial IVPUSH 09/19/25 22:04 10 mg ONCE ONE Administration Diphenhydramine HCl 50 mg 09/19/25 22:02 09/19/25 22:17 Diphenhydramine Hcl 50 Mg/Ml Vial IVPUSH 09/19/25 22:03 50 mg ONCE ONE Administration Ketorolac Tromethamine 15 mg 09/19/25 22:02 09/19/25 22:17 Ketorolac Tromethamine 15 Mg/Ml Vial IVPUSH 09/19/25 22:03 15 mg ONCE ONE Administration Metoclopramide HCl 10 mg 09/19/25 22:03 09/19/25 22:17 Metoclopramide Hcl 10 Mg/2 Ml Vial IVPUSH 09/19/25 22:04 10 mg ONCE ONE Administration Medical Decision Making Medical Decision Making MDM Narrative: 10:04 PM 09/19/2025 (Blanca HUDDLESTON): The patient is a 60-year-old female with a history of migraines, tardive dyskinesia, schizophrenia, and kidney stones, presenting for evaluation of three days of bilateral ear pain with the associated frontal headache consistent with her typical migraines, body aches, subjective chills, sinus congestion with rhinorrhea, and occasional sore throat. The patient also reports a burning sensation in her eyes. The patient denies associated objective fever, vomiting, diarrhea, recent fall or other blunt head trauma, otorrhea, anticoagulation, dysuria, hematuria, or recent sick contacts. The patient reports she was taking Naprosyn however this began upsetting her stomach, went to urgent care and was advised to take Tylenol in place of Naprosyn, patient reports taking multiple doses of Tylenol without significant relief. The patient reports Naprosyn as an allergy however confirms Naprosyn sensitivity is upset stomach no history of anaphylaxis or rash. On exam the patient appears uncomfortable but is otherwise well-appearing and in no acute distress. Lung sounds are clear to auscultation bilaterally, no abdominal tenderness, posterior pharynx is unremarkable, no peritonsillar swelling, no exudate. Bilateral ear canals are clear, bilateral TMs show no erythema or rupture, no obvious air-fluid levels or bulging. The patient's laboratory evaluation is markedly reassuring, no leukocytosis, anemia, electrolyte abnormality, or DELMA. Patient's LFTs are unremarkable, troponin negative, urinalysis shows moderate leukocyte esterase and WBCs with trace bacteria, however no nitrites and patient denies any urinary symptoms. The patient's viral swabs are negative for influenza, RSV, and COVID. EKG shows tachycardia but is otherwise nonischemic. The patient is likely suffering from a viral URI with sinus pressure possibly mimicking migraines. Patient will be treated with IV fluid hydration, Reglan, Benadryl, Toradol, and Decadron. Pending re-evaluation with improvement in symptoms patient will be discharged with supportive care. Admission/Observation Consideration of admission/observation: Escalation of care including admission/observation considered Lab Data MDM Lab Attestation statement: I reviewed the patient's lab results. 09/19/25 16:51 09/19/25 16:51 Labs: Lab Results 09/19/25 09/19/25 Range/Units 16:51 20:38 WBC 7.3 (4.8-10.8) X10*3/uL RBC 4.73 (4.20-5.50) X10*6/uL Hgb 13.8 (12.0-16.0) g/dl Hct 42.0 (37.0-47.0) % MCV 88.8 (80.0-98.0) fL MCH 29.2 (27.0-33.0) pg MCHC 32.9 (31.0-35.0) g/dl RDW 13.2 (11.0-16.0) % Plt Count 331 (160-400) X10*3/uL MPV 10.0 (9.4-12.3) fL Immature Gran % (Auto) 0.3 (0.0-0.4) % Neut % (Auto) 57.0 (45-73) % Lymph % (Auto) 32.5 (20-40) % Garrett % (Auto) 6.2 (2-11) % Eos % (Auto) 3.3 (0-4) % Baso % (Auto) 0.7 (0-2) % Lymph # (Auto) 2.4 (1.2-4.9) X10*3/uL Garrett # (Auto) 0.5 (0.1-1.2) X10*3/uL Eos # (Auto) 0.2 (0.0-0.4) X10*3/uL Baso # (Auto) 0.1 (0.0-0.2) X10*3/uL Abs Immat Gran (auto) 0.02 (0.00-0.03) X10*3/uL Absolute Neuts (auto) 4.2 (2.0-8.3) x10*3/uL Absolute Nucleated RBC 0.000 (0.0-0.012) X10*3/uL Nucleated RBC % (auto) 0.0 (0.0-0.2) /100WBC Sodium 142 (135-145) mmol/L Potassium 4.6 (3.3-5.1) mmol/L Chloride 104 (96-108) mmol/L Carbon Dioxide 27 (22-29) mmol/L Anion Gap 16 (12-20) BUN 11 (9-16) mg/dL Creatinine 0.66 (0.5-1.4) mg/dL Estim Creat Clear Calc 84.7 Estimated GFR > 60 Random Glucose 143 H (60-115) mg/dL Calcium 10.1 (8.4-10.2) mg/dL Magnesium 1.7 (1.6-2.6) mg/dL Total Bilirubin 0.3 (0.0-1.0) mg/dL Direct Bilirubin 0.1 (0.0-0.5) mg/dL AST 29 (5-31) U/L ALT 23 (0-31) U/L Alkaline Phosphatase 83 (39-117) U/L Troponin I High Sens < 2.7 (<3.5-17.0) ng/L Total Protein 7.1 (6.5-8.0) g/dL Albumin 4.8 (3.5-5.0) g/dL Urine Color Yellow Urine Appearance Clear Urine pH 7.0 (5.0-9.0) Ur Specific [place] 1.015 (1.005-1.025) Urine Protein Negative (Neg-Trace) mg/dL Urine Glucose (UA) Negative (Negative) mg/dL Urine Ketones Negative (Negative) mg/dL Urine Blood Negative (Negative) Urine Nitrite Negative (Negative) Ur Leukocyte Esterase Moderate (2+) H (Negative) Urine RBC 0-2 (0-2) /HPF Urine WBC 11-20 H (0-5) /HPF Ur Squamous Epith Cells 6-10 (0-2) /HPF Ur Transition Epith Cell Present Urine Bacteria Trace (None Seen) Hyaline Casts 0-2 (0-2) /LPF Urine Yeast Present Influenza Type A (PCR) NEGATIVE (Negative) Influenza Type B (PCR) NEGATIVE (Negative) RSV RNA Qual (PCR) NEGATIVE (Negative) SARS-CoV-2 RNA (RT-PCR) NEGATIVE (Negative) Independent Interpretation I performed an independent interpretation of an: EKG (EKG shows sinus tachycardia with rate of 119, no evidence of acute ischemia, no ST elevation, no ectopy. QTC 436. Compared to previous on 08/04/2025 QTc has improved, there are no significant morphology changes. ) Discharge Plan Discharge Clinical Impression: Viral upper respiratory infection, Headache Patient Disposition: Home, Self-Care Instructions: Acute Headache (ED), Viral Syndrome (ED) Additional Instructions: Aissatou por elegir el Departamento de Emergencias del [facility] para carlson atenci?n m?dica hoy. Afortunadamente, los resultados de alaina an?lisis de laboratorio, electrocardiograma, an?lisis de orina, pruebas virales, examen f?sico y signos vitales son tranquilizadores. En estephania momento, no hay indicaci?n para carlson ingreso al hospital ni para continuar en observaci?n en el Departamento de Emergencias, por lo que puede regresar a casa con seguridad. Alaina s?ntomas probablemente se deban a patti infecci?n viral de las v?as respiratorias superiores que causa presi?n en los senos paranasales y un dolor de ritesh residual. Afortunadamente, alaina s?ntomas mejoraron despu?s del tratamiento recibido en el Departamento de Emergencias. Debe fabiola dosis alternas de ibuprofeno de 600 mg y paracetamol de 1000 mg cada 4 horas, seg?n sea necesario, para aliviar cualquier dolor adicional. Mant?ngase coreen hidratado y descanse lo suficiente. Por favor, programe patti dyan con carlson m?dico de cabecera para patti reevaluaci?n, manejo adicional de alaina s?ntomas y atenci?n preventiva continua. Si no tiene un m?dico de cabecera, llame al [facility] al [phone] para asignar fransisco. Mientras espera a que se le asigne un m?dico de cabecera, puede llamar a nuestra Cl?christi de Atenci?n sin Dyan Previa al [phone] para necesidades que no alex de emergencia. Regrese al Departamento de Emergencias si presenta un cambio repentino o grave en alaina s?ntomas, fiebre superior a 38 ?C (100.4 ?F) que no mejora con paracetamol o ibuprofeno, v?mitos recurrentes o cualquier otro s?ntoma o preocupaci?n nuevos o que empeoren. Thank you for choosing [facility]'s Emergency Department for your care today. Thankfully your laboratory evaluation, EKG, urinalysis, viral swabs, exam, and vital signs today are all reassuring. At this time there is no indication for admission to the hospital or continued ED observation, and it is safe to discharge you home. Your symptoms are likely secondary to a viral upper respiratory infection causing sinus pressure and a residual headache. Thankfully your symptoms improved following interventions in the ED. You should take alternating (staggered) doses of ibuprofen 600mg and Tylenol 1000mg every 4 hours as needed for any additional pain. Please stay well hydrated and get plenty of rest. Please follow up with your primary care physician for re-evaluation, additional management of your symptoms, and continued preventative care. If you do not have a primary care physician, please call the [facility] at [phone] to establish a new primary care physician. While waiting to establish your new primary care physician, you can call our Walk[facility]in [facility] at [phone] for non-emergency needs. Please return to the emergency department if you develop a severe or sudden change in your symptoms, a fever over 100.4 that does not improve with Tylenol or Ibuprofen, recurrent vomiting, or any other new or worsening symptoms or concerns. Prescriptions: No Action hydroxyzine HCl 25 mg tablet 25 mg PO TID PRN (Reason: itching) Qty: 10 0RF lithium carbonate 450 mg Tablet Extended Release 450 mg PO BID 30 Days Qty: 60 0RF multivitamin Tablet 1 tab PO DAILY 30 Days Qty: 30 0RF atorvastatin 80 mg tablet 1 tab PO BEDTIME 30 Days Qty: 30 0RF clonazepam 1 mg tablet 1 tab PO BEDTIME PRN (Reason: anxiety) 30 Days Qty: 30 0RF pyridoxine (vitamin B6) 100 mg tablet 100 mg PO DAILY 90 Days Qty: 90 3RF metformin 500 mg tablet extended release 24 hr 500 mg PO QPM 30 Days Qty: 30 0RF cholecalciferol (vitamin D3) 50 mcg (2,000 unit) capsule 1 cap PO DAILY 30 Days Qty: 30 0RF doxepin 25 mg capsule 25 - 50 mg PO BEDTIME docusate sodium 100 mg capsule 100 mg PO BEDTIME Qty: 90 3RF nortriptyline 25 mg capsule 25 mg PO BEDTIME bisacodyl [Dulcolax (bisacodyl)] 5 mg tablet,delayed release (DR/EC) 10 mg PO BEDTIME Qty: 180 4RF haloperidol 5 mg tablet 5 mg PO QAM haloperidol 10 mg tablet 10 mg PO BEDTIME benztropine 0.5 mg tablet 0.5 mg PO BID Qty: 180 1RF Referrals: [place] [Primary Care Provider, Medical] Clinical Impression: Headache; Viral upper respiratory infection Print Language: Welsh
--- NOTE | 2025-09-19 16:15 | ECG_ITS ---
Test Reason : dizziness Blood Pressure : */* mmHG Vent. Rate : 119 BPM Atrial Rate : 119 BPM P-R Int : 140 ms QRS Dur : 72 ms QT Int : 310 ms P-R-T Axes : 56 37 62 degrees QTcB Int : 436 ms Sinus tachycardia Otherwise normal ECG When compared with ECG of 04-Aug-2025 09:34, SD interval has increased T wave inversion no longer evident in Lateral leads Referred By: Courtney Stone Electronically Signed By: FADI CLINTON MD
[2025-09-19 16:57] LABS: MANUAL DIFF FLAG NO
[2025-09-19 17:11] LABS: Hematocrit 42.0 % (37.0-47.0); Hemoglobin 13.8 g/dl (12.0-16.0); Imm Gran Abs Auto 0.02 X10*3/uL (0.00-0.03); Imm Gran Pct Auto 0.3 % (0.0-0.4); Lymphocytes Absolute Auto 2.4 X10*3/uL (1.2-4.9); Mean Corpuscular HGB Conc 32.9 g/dl (31.0-35.0); Mean Corpuscular Hemoglobin 29.2 pg (27.0-33.0); Mean Corpuscular Volume 88.8 fL (80.0-98.0); NRBC Abs Auto 0.000 X10*3/uL (0.0-0.012); NRBC Pct Auto 0.0 /100WBC (0.0-0.2); Platelet Count 331 X10*3/uL (160-400); Red Blood Count 4.73 X10*6/uL (4.20-5.50); White Blood Count 7.3 X10*3/uL (4.8-10.8)
[2025-09-19 17:17] LABS: Alanine Aminotransferase 23 U/L (0-31); Albumin Level 4.8 g/dL (3.5-5.0); Alkaline Phosphatase 83 U/L (39-117); Anion Gap 16 (12-20); Aspartate Amino Transferase 29 U/L (5-31); Blood Urea Nitrogen 11 mg/dL (9-16); Calcium 10.1 mg/dL (8.4-10.2); Carbon Dioxide 27 mmol/L (22-29); Chloride 104 mmol/L (96-108); Creatinine Clr Calc Pharmacy 84.7; Estimated Glomerular Filt Rate > 60; Magnesium 1.7 mg/dL (1.6-2.6); Potassium 4.6 mmol/L (3.3-5.1); Sodium 142 mmol/L (135-145); Total Protein 7.1 g/dL (6.5-8.0)
[2025-09-19 17:24] LABS: Troponin-I High Sensitivity < 2.7 ng/L (<3.5-17.0)
[2025-09-19 17:34] LABS: Resp Syncy Virus RNA Qual PCR NEGATIVE (Negative); SARS COV2 PCR INHOUSE NEGATIVE (Negative)
[2025-09-19 20:45] LABS: Appearance Urine Clear; Glucose Urine UA Negative (Negative); PH 7.0 (5.0-9.0); Specific Gravity - Urine 1.015 (1.005-1.025); UMIC TRIGGER UACC YES
[2025-09-19 21:01] LABS: UACC Culture Trigger YES
[2025-09-19 22:59] VITALS: BP 133/83; PULSE 106; RESP 20; TEMP 36.1; O2SAT 96
[2025-09-19 23:01] VITALS: BP 133/83; PULSE 106; RESP 20; TEMP 36.1; O2SAT 96
[2025-09-19 23:02] VITALS: BP 133/83; PULSE 106; RESP 20; TEMP 36.1
--- OUTSIDE RECORDS SUMMARY | 2025-09-20 01:02 | XMS_ITS | Encounter Summary ---
Author Organization [employer] Address [address] [facility] 7t [place] [address] Care Team Providers Care Ornamental Metal Erector Name Role Phone [facility] Primary Care Provider [phone] Pete Shultz RN Unavailable [phone] Jacinta Bajwa Unavailable Reason for Visit * Reason Onset Date Comments Lab Orders 11/16/2022 Encounter Details Date Type Department Care Team ([facility] st Contact Info) Description 11/16/2022 Telephone [facility] MEDICINE [address] [place] [address] [facility] [address] [place] [address] Lab Orders Social History Tobacco Use Types [...] Miscellaneous Notes * Telephone Encounter - Mike Kareem - 11/16/2022 12:25 PM EST Tc from pt requesting a call back regarding blood work order Please contact pt at [phone] documented in this encounter Plan of Treatment Not on file documented as of this encounter Visit Diagnoses Not on filedocumented in this encounter Additional Health Concerns Assessment Noted Time PHQ-9 Depression Total Score: 0 11/13/19 23 1:38 PM EST documented as of this encounter Care Teams Ornamental Metal Erector Relationship Specialty Start Date End Date Charlotte Laureano FNP [address] [place] [id number] PCP - General Family Medicine 06/09/22 Pete Shultz RN [address] [place] [address] Registered Nurse Family Medicine 06/22/25 Jacinta Bajwa 06/22/25 07/30/25 documented as of this encounter
--- OUTSIDE RECORDS SUMMARY | 2025-09-20 01:02 | XMS_ITS | Encounter Summary ---
Author Organization [employer] Address [address] [facility] 7t [place] [address] Care Team Providers Care Shaving Machine Operator Name Role Phone [facility] Primary Care Provider [phone] Pete Shultz RN Unavailable [phone] Jacinta Bajwa Unavailable Reason for Visit * Reason Onset Date Comments Nurse Triage 11/10/2023 Encounter Details Date Type Department Care Team ([facility] st Contact Info) Description 11/10/2023 Telephone [facility] MEDICINE [address] [place], [place] [phone] [facility] [address] [place] [address] Nurse Triage Social History Tobacco Use Types [...] 10:49 AM EST Triage attempted x2 with [place] [employer] [place] [place] [id number] . Both call went directly to message [...] accepted this outcome Please contact pt at [phone] (burundian) documented in this encounter Plan of Treatment Not on file documented as of this encounter Visit Diagnoses Not on filedocumented in this encounter Additional Health Concerns Assessment Noted Time PHQ-9 Depression Total Score: 0 10/13/19 24 11:29 AM EST documented as of this encounter Care Teams Shaving Machine Operator Relationship Specialty Start Date End Date Charlotte Laureano FNP [address] [place] [id number] PCP - General Family Medicine 06/09/22 Pete Shultz RN [address] [place] [address] [place] [address] Registered Nurse Family Medicine 06/22/25 Jacinta Bajwa 06/22/25 07/30/25 documented as of this encounter
--- OUTSIDE RECORDS SUMMARY | 2025-09-20 01:02 | XMS_ITS | Encounter Summary ---
Author Organization [employer] Address [address] [facility] 7t [place] [address] Care Team Providers Care Mining Professionals Name Role Phone [facility] Primary Care Provider [phone] Pete Shultz RN Unavailable [phone] Jacinta Bajwa Unavailable Reason for Visit * Reason Onset Date Comments Results 10/14/2023 Encounter Details Date Type Department Care Team ([facility] st Contact Info) Description 10/14/[address] [facility] MEDICINE [address] [place], [place] [phone] [facility] [address] [place] [address] Results Social History Tobacco Use Types Packs/Day [...] regards to results. Please contact pt at [phone] * Telephone Encounter - Maria De Jesus Shultz - 10/15/2023 9:06 AM EST Tc from pt calling in regards to results. Please contact pt at [phone] * Telephone Encounter - Maria De Jesus Shultz - 10/14/2023 2:43 PM EST TC from pt requesting call back regarding Results. Type of results: labs Date when done: 10/13 Facility: [facility] documented in this encounter Plan of Treatment Not on file documented as of this encounter Visit Diagnoses Not on filedocumented in this encounter Additional Health Concerns Assessment Noted Time PHQ-9 Depression Total Score: 0 10/13/19 24 11:29 AM EST documented as of this encounter Care Teams Mining Professionals Relationship Specialty Start Date End Date Charlotte Laureano FNP [address] [place] [address] PCP - General Family Medicine 06/09/22 Pete Shultz RN [address] [place] [address] [place]ak [address] Registered Nurse Family Medicine 06/22/25 Jacinta Bajwa 06/22/25 07/30/25 documented as of this encounter
--- OUTSIDE RECORDS SUMMARY | 2025-09-20 01:02 | XMS_ITS | Encounter Summary ---
Author Organization [employer] Address [address] [place] [address] 7 [place] [address] Care Team Providers Care Multi Media Specialist Name Role Phone Charlotte Laureano [facility] Primary Care Provider [phone] Pete Shultz RN Unavailable [phone] Jacinta Bajwa Unavailable Encounter Details Date Type Department Care Team (Late st Contact Info) Description 01/22/2023 Telephone [facility] MEDICINE [address] [place], [place] [phone] Charlotte Laureano [facility] [address] [place] [address] Social History Tobacco Use Types Packs/Day Years [...] documented as of this encounter Care Teams Multi Media Specialist Relationship Specialty Start Date End Date Charlotte Laureano [facility] [address] [place] [address] PCP - General Family Medicine 06/09/22 Pete Shultz, SHARI [address] [place] [address] [place] [address] Registered Nurse Family Medicine 06/22/25 Jacinta Bajwa 06/22/25 07/30/25 documented as of this encounter
--- OUTSIDE RECORDS SUMMARY | 2025-09-20 01:02 | XMS_ITS | Encounter Summary ---
Author Organization [employer] Address [address] [facility] 7t [place] [address] Care Team Providers Care Supervisor Patching Name Role Phone Charlotte Laureano [facility] Primary Care Provider [phone] Pete Shultz RN Unavailable [phone] Reason for Visit * Reason Onset Date Comments Nurse Triage 09/12/2025 Encounter Details Date Type Department Care Team ([facility] Contact Info) Description 09/12/2025 Telephone [facility] MEDICINE 230 [place], [place] [phone] [place] [facility] 230 [place] [address] Nurse Triage Social History Tobacco Use Types [...] encounter Miscellaneous Notes * Telephone Encounter - Sabina Starks RN - 09/12/2025 12:13 PM EST called pt to triage, spoke to pt through [employer] Scrap Yard Worker. pt states several days without any Miralax and having some constipation symptoms. pt states had a small, hard BM yesterday and her Miralaxis gone. pt having some bloating and discomfort and requesting refill. pt denies fever, vomiting, diarrhea, more than 4 days without any BM or other associated symptoms. advised home care: rest, fluids, fiber, take Miralax as prescribed, refill before it is gone, and call back as needed. pt also states seen on 09/10 for URI which is persistent. pt states ear pain/pressure, congestion, mild cough, and headache. reviewed the visit of 09/10, pt diagnosed with viral URI. advised to continue per plan of the visit and call back as needed. pt understands and agrees with plan. Protocol Used: Constipation (Adult) Protocol-Based Disposition: Home Care Positive Triage Question: * Mild constipation * All higher-acuity triage questions were negative. Care Advice Discussed: * Reassurance and Education - Constipation * General Constipation Instructions * High Fiber Diet * Drink Adequate Liquids * Reasons To Call Back - Constipation lasts more than 1 week after using Care Advice - Abdomen swelling, vomiting or fever occur - Constant or increasing abdomen pain - You think you need to be seen - You become worse * Telephone Encounter - Maira Bajwa - 09/12/2025 10:59 AM EST Symptom: Abdominal Pain - Female - Not Outcome: Schedule an appointment to be seen within 24 hours Reason: Caller denied all higher acuity questions Pain on ear Please contact at pt [phone] Arabic speak documented in this encounter Plan of Treatment Not on file documented as of this encounter Visit Diagnoses Diagnosis Constipation, unspecified constipation type documented in this encounter Additional Health Concerns Assessment Noted Time PHQ-9 Depression Total Score: 0 07/09/20 9:02 AM EDT documented as of this encounter Care Teams Supervisor Patching Relationship Specialty Start Date End Date Charlotte Laureano FNP [address] [place] [address] PCP - General Family Medicine 06/09/22 Pete Shultz RN [address] [place] [address] Registered Nurse Family Medicine 06/22/25 documented as of this encounter
--- OUTSIDE RECORDS SUMMARY | 2025-09-20 01:02 | XMS_ITS | Encounter Summary ---
Author Organization [employer] Address [address] [facility] 7t [place] [address] Care Team Providers Care Supervisor Blasting Name Role Phone [facility] Primary Care Provider [phone] Pete Shultz RN Unavailable [phone] Jacinta Bajwa Unavailable Reason for Visit * Reason Onset Date Comments Referral Letter 02/21/2025 Encounter Details Date Type Department Care Team ([facility] st Contact Info) Description 02/21/2025 Telephone [facility] MEDICINE 230 [place], [place] [phone] [facility] 230 [place] [address] Referral Letter Social History Tobacco Use Types [...] be sent via mail. Referral: Neurology - [address] [place] [address] [address]th [address] [place] [address] Pt states is unable to get (type) [...] as of this encounter Care Teams Supervisor Blasting Relationship Specialty Start Date End Date Charlotte Laureano FNP 230 [place] [address] PCP - General Family Medicine 06/09/22 Pete Shultz RN [address] [place] [address] Registered Nurse Family Medicine 06/22/25 Jacinta Bajwa 06/22/25 07/30/25 documented as of this encounter
--- OUTSIDE RECORDS SUMMARY | 2025-09-20 01:02 | XMS_ITS | Encounter Summary ---
Author Organization [employer] Address [address] [facility] 7t [place] [address] Care Team Providers Care Valve Repairer Name Role Phone Georgi Charlotte HEAD OF PARTNER DEVELOPMENT Primary Care Provider [phone] Pete Shultz RN Unavailable [phone] Encounter Details Date Type Department Care Team ([facility] st Contact Info) Description 09/19/2025 Orders Only GENERIC EXTERNAL DATA DEPARTMENT Provider, [...] Procedure Name Priority Date/Time Associated Diagnosis Comments URINALYSIS, COMPLETE, WITH REFLEX TO CULTURE Routine 09/19/2025 8:38 PM EST documented in this encounter Results * (ABNORMAL) Urinalysis, Complete, with Reflex to Culture (09/19/2025 8:38 PM EST) Color Urine Yellow [facility] Appearance Urine Clear [facility] PH 7.0 5.0 - 9.0 [facility] Glucose Urine UA Negative Negative mg/dL [facility] Urine Blood Negative Negative [facility] Specific [place] - Urine 1.015 1.005 - 1.025 [facility] Urine Protein Negative Neg-Trace mg/dL [facility] Urine Ketones Negative Negative mg/dL [facility] Nitrite Urine Negative Negative [facility] Leukocyte Esterase Urine Moderate (2+)(A) Negative [facility] RBC Urine 0-2 0 - 2 /HPF [facility] Urine WBC 11-20(A) 0 - 5 /HPF [facility] Urine Squamous Epithelial Cell 6-10 0 - 2 /HPF [facility] TRANSITIONAL (EPITHELIAL) CELLS (#/HPF) IN URINE Present [facility] Urine Bacteria Trace None Seen [facility] Hyaline Casts, Urine 0-2 0 - 2 /LPF [facility] Urine Yeast Present [facility] 09/19/2025 8:38 PM EST 09/19/2025 8:42 PM EST Narrative [facility] - 09/19/2025 9:06 PM EST Urine, Clean Catch us Generic External Data Provider LAB URINE ORDERAB LES Final Result [facility] [address] [place] [address] [phone] documented in this encounter Visit Diagnoses Not on filedocumented in this encounter Additional Health Concerns Assessment Noted Time PHQ-9 Depression Total Score: 0 07/09/20 9:02 AM EDT documented as of this encounter Care Teams Valve Repairer Relationship Specialty Start Date End Date Charlotte Laureano FNP [address] [place] [address] PCP - General Family Medicine 06/09/22 Pete Shultz RN [address] [place] [address] Registered Nurse Family Medicine 06/22/25 documented as of this encounter
--- OUTSIDE RECORDS SUMMARY | 2025-09-20 01:02 | XMS_ITS | Encounter Summary ---
Author Organization [employer] Address [address] [facility] 7t [place] [address] Care Team Providers Care Paper Mill Supervisor Name Role Phone Georgi, [facility] Primary Care Provider [phone] Pete Shultz RN Unavailable [phone] Reason for Visit * Reason Onset Date Comments Results 09/17/2025 Encounter Details Date Type Department Care Team ([facility] Contact Info) Description 09/17/2025 Telephone [facility] MEDICINE 230 [place], [place] [phone] [facility] 230 [place] [address] Results Social History Tobacco Use Types Packs/Day [...] Telephone Encounter - Mickie Bobby RN - 09/17/2025 2:24 PM EST TC returned to pt. And advised pt. Chest x-ray from 09/14 returned normal. Pt. Verbalizes understanding and has no questions or concerns * Telephone Encounter - Dallin Mancilla - 09/17/2025 1:49 PM EST TC from pt requesting call back regarding Results. Type of results: Xray Date when done: 09/14 Facility: [facility] Contact pt at [phone] documented in this encounter Plan of Treatment Not on file documented as of this encounter Visit Diagnoses Not on filedocumented in this encounter Additional Health Concerns Assessment Noted Time PHQ-9 Depression Total Score: 0 07/09/20 25 9:02 AM EDT documented as of this encounter Care Teams Paper Mill Supervisor Relationship Specialty Start Date End Date Charlotte Laureano FNP [address] [place] [address] PCP - General Family Medicine 8/30/22 Pete Shultz RN [address] [place] [address] Registered Nurse Family Medicine 06/22/25 documented as of this encounter
--- OUTSIDE RECORDS SUMMARY | 2025-09-20 01:02 | XMS_ITS | Encounter Summary ---
Author Organization [employer] Address [address] [facility] 7t [place] [address] Care Team Providers Care Tufting Supervisor Name Role Phone [facility] Primary Care Provider [phone] Pete Shultz RN Unavailable [phone] Jacinta Bajwa Unavailable Reason for Visit * Reason Onset Date Comments Results 07/12/2023 Encounter Details Date Type Department Care Team ([facility] st Contact Info) Description 07/12/2023 Telephone [facility] MEDICINE 230 [place] [address] [facility] 230 [place] [address] Results Social History Tobacco Use Types Packs/Day [...] 11:46 AM EDT T/C to pt. Through FriendCode id - [id number] for below message, pt. Was informed regarding normal lipids labs. Pt. Verbally agreed and understood. * Telephone Encounter - Stefania Cardenas - 07/13/2023 4:17 PM EDT Pt calling again requesting a call in regards to results of 07/08 labs. Please contact pt at [phone] (Czech) * Telephone Encounter - Maria De Jesus Shultz - 07/12/2023 9:14 AM EDT Tc from pt requesting a call in regards to results of 07/08 labs. Please contact pt at [phone] (Czech) documented in this encounter Plan of Treatment Not on file documented as of this encounter Visit Diagnoses Not on filedocumented in this encounter Additional Health Concerns Assessment Noted Time PHQ-9 Depression Total Score: 0 04/27/20 9:47 AM EDT documented as of this encounter Care Teams Tufting Supervisor Relationship Specialty Start Date End Date Charlotte Laureano FNP [address] [place] [address] PCP - General Family Medicine 06/09/22 Pete Shultz RN [address] [place] [address] Registered Nurse Family Medicine 06/22/25 Jacinta Bajwa 06/22/25 07/30/25 documented as of this encounter
--- OUTSIDE RECORDS SUMMARY | 2025-09-20 01:02 | XMS_ITS | Encounter Summary ---
Author Organization [employer] Address [address] [facility] 7t [place] [address] Care Team Providers Care Tile Molder Name Role Phone [facility] Primary Care Provider [phone] Pete Shultz RN Unavailable [phone] Jacinta Bajwa Unavailable Reason for Visit * Reason Onset Date Comments Lab Orders 02/25/2023 Encounter Details Date Type Department Care Team (Late st Contact Info) Description 02/25/2023 Telephone [facility] MEDICINE 230 [place] [address] [facility] 230 [place] [address] Lab Orders Social History Tobacco Use Types [...] - 03/15/2023 10:27 AM EDT T/C to [phone] through [employer] , Message states , The number you [...] PM EDT T/C placed to pt via [employer] Shuttle Van Driver Ana María #[id number]. Pt states she would like a lab [...] check for diabetes. Please contact pt at [phone] documented in this encounter Plan of Treatment Not on file documented as of this encounter Visit Diagnoses Not on filedocumented in this encounter Additional Health Concerns Assessment Noted Time PHQ-9 Depression Total Score: 0 11/13/19 23 1:38 PM EST documented as of this encounter Care Teams Tile Molder Relationship Specialty Start Date End Date Charlotte Laureano FNP 230 [place] [address] PCP - General Family Medicine 06/09/22 Pete Shultz RN [address] [place] [address] Registered Nurse Family Medicine 06/22/25 Jacinta Bajwa 06/22/25 07/30/25 documented as of this encounter
--- OUTSIDE RECORDS SUMMARY | 2025-09-20 01:02 | XMS_ITS | Encounter Summary ---
Author Organization [employer] Address 75 [facility] 7t [place] [address] Care Team Providers Care Tour Counselor Name Role Phone Georgi, [facility] Primary Care Provider [phone] Pete Shultz RN Unavailable [phone] Jacinta Bajwa Unavailable Encounter Details Date Type Department Care Team ([facility] st Contact Info) Description 07/27/2024 Telephone [facility] MEDICINE 230 [place], [place] [phone] [place] [facility] 230 [place] [address] Social History Tobacco Use Types Packs/Day Years [...] documented as of this encounter Care Teams Tour Counselor Relationship Specialty Start Date End Date Charlotte Laureano FNP 230 [place] [address] PCP - General Family Medicine 06/09/22 Pete Shultz, SHARI [address] [place] [address] Registered Nurse Family Medicine 06/22/25 Jacinta Bajwa 06/22/25 07/30/25 documented as of this encounter
--- OUTSIDE RECORDS SUMMARY | 2025-09-20 01:02 | XMS_ITS | Encounter Summary ---
Author Organization [employer] Address [address] [facility] 7t [place] [address] Care Team Providers Care News Anchor Name Role Phone [facility] Primary Care Provider [phone] Pete Shultz RN Unavailable [phone] Jacinta Bajwa Unavailable Reason for Visit * Reason Onset Date Comments Referral 12/31/2023 Encounter Details Date Type Department Care Team ([facility] st Contact Info) Description 12/31/2023 Telephone [facility] MEDICINE 230 [place], [place] [phone] [facility] 230 [place] [address] Referral Social History Tobacco Use Types Packs/Day [...] a referral to the vision center at [facility]. A referral had been placed on 05/20/23 to [facility] eyecare for a history of glaucoma. Pt needs a new referral placed. Forwarding to provider * Telephone Encounter - Cami Workman - 12/31/2023 9:47 AM EDT TC from pt requesting new referral to vision center . Location: [facility] Address: [address] [place] [address] documented in this encounter Plan of Treatment Not on file documented as of this encounter Visit Diagnoses Not on filedocumented in this encounter Additional Health Concerns Assessment Noted Time PHQ-9 Depression Total Score: 0 12/22/19 24 9:02 AM EDT documented as of this encounter Care Teams News Anchor Relationship Specialty Start Date End Date Charlotte Laureano FNP [address] [place] [address] PCP - General Family Medicine 06/09/22 Pete Shultz RN [address] [place], [place] [address], [place] [address] Registered Nurse Family Medicine 06/22/25 Jacinta Bajwa 06/22/25 07/30/25 documented as of this encounter
--- OUTSIDE RECORDS SUMMARY | 2025-09-20 01:02 | XMS_ITS | Encounter Summary ---
Author Organization [employer] Address [address] [facility] 7t [place] [address] Care Team Providers Care Director Sales And Marketing Name Role Phone [facility] Primary Care Provider [phone] Pete Shultz RN Unavailable [phone] Jacinta Bajwa Unavailable Reason for Visit * Reason Onset Date Comments Lab Orders 12/07/2022 Encounter Details Date Type Department Care Team ([facility] st Contact Info) Description 12/07/2022 Telephone [facility] MEDICINE 230 [place] [address] [facility] 230 [place] [address] Lab Orders Social History Tobacco Use Types [...] as of this encounter Care Teams Director Sales And Marketing Relationship Specialty Start Date End Date Charlotte LaureanoDAO 230 [place] [address] PCP - General Family Medicine 06/09/22 Pete Shultz RN 505 [place] [address] Registered Nurse Family Medicine 06/22/25 Jacinta Bajwa 06/22/25 07/30/25 documented as of this encounter
--- OUTSIDE RECORDS SUMMARY | 2025-09-20 01:02 | XMS_ITS | Encounter Summary ---
Author Organization [employer] Address 75 [facility] 7t [place] [address] Care Team Providers Care Dispatcher Motor Vehicle Name Role Phone [facility] Primary Care Provider Pete Shultz RN Unavailable [phone] Jacinta Bajwa Unavailable Reason for Visit * Reason Onset Date Comments call back 11/26/2022 Encounter Details Date Type Department Care Team ([facility] st Contact Info) Description 11/26/2022 Telephone [facility] MEDICINE 230 [place] [address] [facility] 230 [place] [address] call back Social History Tobacco Use Types [...] AM EST TC returned to pt at [phone], utilizing Bruce Boring Machine Operator Helper ID:[id number], regarding message belowper [facility]. Pt informed labs show high [...] she can obtain copy of labs at [facility] Medical Records in basement. Pt verbalized understanding. Pt to F/U as needed. ----- Message from [facility] sent at 11/26/2022 8:44 AM EST [...] documented as of this encounter Care Teams Dispatcher Motor Vehicle Relationship Specialty Start Date End Date [facility] 230 [place] [address] PCP - General Family Medicine 06/09/22 Pete Shultz RN [address] [place] [address] Registered Nurse Family Medicine 06/22/25 Jacinta Bajwa 06/22/25 07/30/25 documented as of this encounter
--- OUTSIDE RECORDS SUMMARY | 2025-09-20 01:02 | XMS_ITS | Encounter Summary ---
Author Organization [employer] Address [address] [facility] 7t [place] [address] Care Team Providers Care Director Motion Picture Name Role Phone [facility] Primary Care Provider [phone] Pete Shultz RN Unavailable [phone] Jacinta Bajwa Unavailable Reason for Visit * Reason Onset Date Comments Nurse Triage 11/09/2023 Encounter Details Date Type Department Care Team ([facility] st Contact Info) Description 11/09/2023 Telephone [facility] MEDICINE 230 [place], [place] [phone] [facility] 230 [place] [address] Nurse Triage Social History Tobacco Use Types [...] as of this encounter Care Teams Director Motion Picture Relationship Specialty Start Date End Date Charlotte Laureano FNP 230 [place] [address] PCP - General Family Medicine 06/09/22 Pete Shultz RN [address] [place] [address] Registered Nurse Family Medicine 06/22/25 Jacinta Bajwa 06/22/25 07/30/25 documented as of this encounter
--- OUTSIDE RECORDS SUMMARY | 2025-09-20 01:02 | XMS_ITS | Encounter Summary ---
Author Organization [employer] Address [address] [facility] 7t [place] [address] Care Team Providers Care Analytical Research Program Manager Name Role Phone [facility] Primary Care Provider [phone] Pete Shultz RN Unavailable [phone] Jacinta Bajwa Unavailable Reason for Visit * Reason Onset Date Comments Lab Orders 11/23/2022 Encounter Details Date Type Department Care Team (Late st Contact Info) Description 11/23/2022 Telephone [facility] MEDICINE 230 [place] [address] [facility] 230 [place] [address] Lab Orders Social History Tobacco Use Types [...] blood work order Please contact pt at [phone] documented in this encounter Plan of Treatment Not on file documented as of this encounter Visit Diagnoses Not on filedocumented in this encounter Additional Health Concerns Assessment Noted Time PHQ-9 Depression Total Score: 0 11/13/19 23 1:38 PM EST documented as of this encounter Care Teams Analytical Research Program Manager Relationship Specialty Start Date End Date Charlotte Laureano FNP 230 [place] [address] PCP - General Family Medicine 06/09/22 Pete Shultz RN [address] [place] [address] Registered Nurse Family Medicine 06/22/25 Jacinta Bajwa 06/22/25 07/30/25 documented as of this encounter
--- OUTSIDE RECORDS SUMMARY | 2025-09-20 01:02 | XMS_ITS | Encounter Summary ---
Author Organization [employer] Address [address] [facility] 7t [place] [address] Care Team Providers Care Commercial Roofer Name Role Phone Georgi Charlotte FORM PRESS OPERATOR Primary Care Provider [phone] Pete Shultz RN Unavailable [phone] Jacinta Bajwa Unavailable Encounter Details Date Type Department Care Team (Late st Contact Info) Description 01/19/2024 Orders Only [facility] MEDICINE 230 [place], [place] [address] ProviderNidia MD Social History Tobacco Use Types [...] EDT) Historical Provider HEALTH MAINTENANCE Final Result documented in this encounter Visit Diagnoses Not on filedocumented in this encounter Additional Health Concerns Assessment Noted Time PHQ-9 Depression Total Score: 0 12/22/19 24 9:02 AM EDT documented as of this encounter Care Teams Commercial Roofer Relationship Specialty Start Date End Date Charlotte Laureano FNP 230 [place] [address] PCP - General Family Medicine 06/09/22 Pete Shultz RN [address] [place] [address] Registered Nurse Family Medicine 06/22/25 Jacinta Bajwa 06/22/25 07/30/25 documented as of this encounter
--- OUTSIDE RECORDS SUMMARY | 2025-09-20 01:02 | XMS_ITS | Encounter Summary ---
Author Organization [employer] Address [address] [facility] 7t [place] [address] Care Team Providers Care Crochet Beader Name Role Phone Georgi, [facility] [place] [facility] Primary Care Provider [phone] Pete Shultz RN Unavailable [phone] Jacinta Bajwa Unavailable Encounter Details Date Type Department Care Team ([facility] st Contact Info) Description 01/25/2024 Telephone [facility] MEDICINE 230 [place], [place] [phone] [facility] 230 [place] [address] Social History Tobacco Use Types Packs/Day Years [...] documented as of this encounter Care Teams Crochet Beader Relationship Specialty Start Date End Date Charlotte Laureano FNP [address] [place] [address] PCP - General Family Medicine 06/09/22 Pete Shultz RN [address] [place] [address] Registered Nurse Family Medicine 06/22/25 Jacinta Bajwa 06/22/25 07/30/25 documented as of this encounter
--- OUTSIDE RECORDS SUMMARY | 2025-09-20 01:02 | XMS_ITS | Encounter Summary ---
Author Organization [employer] Address [address] [facility] [address] [place] [address] Care Team Providers Care Glass Technician/Installer Name Role Phone [facility] Primary Care Provider [phone] Pete Shultz RN Unavailable [phone] Jacinta Bajwa Unavailable Reason for Visit * Reason Onset Date Comments Hospital Follow-up 11/04/2023 Encounter Details Date Type Department Care Team ([facility] st Contact Info) Description 11/04/2023 Telephone [facility] [address] [place], [place] [id number] [facility] [address] [place], [place] [id number] Hospital Follow-up Social History Tobacco Use Types [...] 8:42 AM EST Tc from Radha at [facility] requesting a HDF follow up appt for the patient. Tc from pt requesting a HDF appt. Hospital: [facility] Date of admission: 10/28 Discharge date: 11/04 Diagnosed: schizophrenia Disorder Please Call [facility] at [phone] documented in this encounter Plan of Treatment Not on file documented as of this encounter Visit Diagnoses Not on filedocumented in this encounter Additional Health Concerns Assessment Noted Time PHQ-9 Depression Total Score: 0 10/13/19 24 11:29 AM EST documented as of this encounter Care Teams Glass Technician/Installer Relationship Specialty Start Date End Date Charlotte Laureano FNP [address] [place] [address] PCP - General Family Medicine 06/09/22 Pete Shultz, SHARI [address] [place] [id number] Registered Nurse Family Medicine 06/22/25 Jacinta Bajwa 06/22/25 07/30/25 documented as of this encounter
--- OUTSIDE RECORDS SUMMARY | 2025-09-20 01:02 | XMS_ITS ---
Author Organization [employer] Address [address] [facility] [address] [place] [address] Care Team Providers Care Customer Engineering Specialist Name Role Phone Charlotte Laureano [facility] Primary Care Provider [phone] Pete Shultz RN Unavailable [phone] Status:Enrolled (Active) Start date:06/22/2025 Enrollment date:06/28/2025 Enrollment reason:ADT Feed Overview ADT- [facility] 06/21/25 Case Team Name Relationship Phone Pete Shultz RN(Responsible Staff) Registered Nurse [phone] Continued Care and Services Coordination
--- OUTSIDE RECORDS SUMMARY | 2025-09-20 01:02 | XMS_ITS | Clinical Summary ---
Author Organization [employer] Address [address] [facility] [address] [place] [address] Care Team Providers Care Can Tender Name Role Phone Georgi [facility] Primary Care Provider [phone] Pete Shultz RN Unavailable [phone] Allergies Active Allergy Reactions Criticality Noted Date Comments Amoxicillin 09/23/2017 Other reaction(s): hair loss [place] 09/09/2018 Other reaction(s): Rash, Rash Risperidone 02/01/2014 Other reaction(s): Gynecomastia Medications * This document contains information received from the source organization and may not represent a complete record from that organization. cloNIDine (Catapres) 0.2 MG tablet Take 0.2 mg by mouth at bedtime. 022 Active haloperidol (Haldol) 5 MG tablet Take 1 tablet by mouth in the morning 022 Active SUMAtriptan (Imitrex) 25 MG tablet 022 Active capsaicin (Zostrix) 0.025 % creamIndications: Acute pain of both knees APPLY TOPICALLY TO AFFECTED AREA(S) TWICE DAILY 60 g 1 023 Active Diclofenac Sodium 1 % gelIndications:[place] pain of both knees APPLY 4 GRAMS TOPICALLY TO AFFECTED AREA(S) TWICE DAILY 100 g 2 023 Active Multiple Vitamin (multivitamin) tabletIndications :Healthcare maintenance Take 1 tablet by mouth Once daily. 90 tablet 3 024 Active haloperidol (Haldol) 10 MG tablet Take 1 tablet by mouth at bedtime. 024 Active hydrocortisone 1 % cream APPLY RECTALLY TWICE DAILY IF NEEDED FOR HEMORRHOIDS 28 g 1 024 Active Minoxidil (Minoxidil for Men) 5 % foamIndications:H air loss APPLY 1/2 CAP TO THE SCALP TWICE DAILY DIRECTED 60 g 024 Active nortriptyline (Pamelor) 25 MG capsule Active docusate sodium (Colace) 100 MG capsule Active Ketotifen Fumarate 0.035 % solution PLACE 1 DROP IN THE AFFECTED EYE (s) TWICE DAILY IN THE MORNING AND AT BEDTIME NEEDED FOR ITCHING OR REDNESS FOR 7 DAYS 5 mL 1 Active FT All Day Pain Relief 220 MG tabletIndications :Acute bilateral back pain, unspecified back location TAKE 1 TABLET BY MOUTH TWICE DAILY IN THE MORNING AND AT BEDTIME NEEDED FOR MILD PAIN 60 tablet 1 Active polyethylene glycol, PEG, 3350 (MiraLax) 17 GM/SCOOP powderIndications :Constipation, unspecified constipation type Take 17 g by mouth Once per day. 527 g 2 Active famotidine (Pepcid) 40 MG tablet TAKE 1 TABLET BY MOUTH TWICE DAILY 180 tablet Active Acetaminophen Extra Strength 500 MG tablet TAKE 1 TABLET BY MOUTH EVERY 8 HOURS NEEDED FOR PAIN MODERATE 90 tablet 025 Active atorvastatin (Lipitor) 80 MG tablet TAKE 1 TABLET BY MOUTH EVERY DAY AT BEDTIME 90 tablet 1 09/12/20 5:42 PM EST Active metFORMIN XR (Glucophage-XR) 500 MG 24 hr tabletIndications :Class 1 obesity due to excess calories with serious comorbidity and body mass index (BMI) of 33.0 to 33.9 in adult TAKE 1 TABLET BY MOUTH TWICE A DAY. DO NOT CRUSH, CHEW OR SPLIT. 180 tablet 1 09/10/20 25 10:49 AM EST Active triamcinolone (Nasacort) 55 MCG/ACT nasal inhaler Administer 2 sprays into each nostril Once per day. 16.5 g 09/10/20 25 10:49 AM EST 025 2025 Active meclizine (Antivert) 25 MG tablet Take 1 tablet (25 mg) by mouth if needed in the morning and at bedtime for dizziness for up to 10 days. 15 tablet 09/10/20 25 10:49 AM EST 2024 Active polyethylene glycol, PEG, 3350 (GaviLAX) 17 GM/SCOOP powderIndications :Constipation, unspecified constipation type Take 17 g by mouth Once per day. 510 g 2 09/13/20 25 6:07 PM EST Active hydrOXYzine HCl (Atarax) 25 MG tablet TOME 1 TABLETA POR V A ORAL CATERINA VECES AL D A CUANDO SEA NECESARIO PARA LA PICAZ N Active Pred Forte 1 % ophthalmic suspension PLACE 1 DROP IN EACH EYE THREE TIMES DAILY FOR 2-3 WEEKS DIRECTED Active haloperidol (Haldol) 2 MG tablet TAKE 1 TABLET BY MOUTH TWICE DAILY IN THE MORNING AND IN THE EVENING Active erythromycin (Romycin) 5 MG/GM ophthalmic ointmentIndicatio ns:Acute viral conjunctivitis of both eyes Apply to affected eye(s) at noon and in the evening. Do all this for 7 days. Apply Amount per Dose: 0.5 inch (~1 cm) per dose. 3.5 g 025 2024 Active azithromycin (Zithromax) 250 MG tabletIndications :Non-recurrent acute suppurative otitis media of right ear without spontaneous rupture of tympanic membrane Take 1 tablet (250 mg) by mouth Once per day for 5 days. On the first day take 500mg 6 tablet 09/17/20 25 3:03 PM EST 2024 Active fluticasone (Flonase) 50 MCG/ACT nasal sprayIndications: Seasonal allergies USE 1 TO 2 SPRAYS IN EACH NOSTRIL EVERY MORNING 48 g 023 2024 Discontinued GaviLAX 17 GM/SCOOP powderIndications :Constipation, unspecified constipation type Mix 17g (1 capful) in 8 ounces of water and take by mouth every day 510 g 2 024 2024 Discontinued(R eorder (will not trigger notification to Pharmacy)) atorvastatin (Lipitor) 80 MG tablet TAKE 1 TABLET BY MOUTH EVERY DAY AT BEDTIME 90 tablet 3 025 2024 Discontinued(R eorder (will not trigger notification to Pharmacy)) metFORMIN XR (Glucophage-XR) 500 MG 24 hr tabletIndications :Class 1 obesity due to excess calories with serious comorbidity and body mass index (BMI) of 33.0 to 33.9 in adult TAKE 1 TABLET BY MOUTH TWICE A DAY. DO NOT CRUSH, CHEW OR SPLIT. 180 tablet 025 2024 Discontinued(R eorder (will not trigger notification to Pharmacy)) Active Problems Problem Noted Date Diagnosed Date Non-recurrent acute suppurat mina otitis media of right ear without spontaneous rupture of tympanic membrane 09/16/2025 Acute viral conjunctivitis of both eyes 09/16/20 25 Primary hyperparathyroidism 09/14/2025 Macular degeneration 03/14/2025 History of renal calculi 01/11/2024 Schizophrenia 11/16/2023 Assessment & Plan (11/16/2023 10:07 AM EST): As above Upper back pain 11/16/2023 Assessment & Plan (11/16/2023 10:07 AM EST): Apply heat on affected area Acetaminophen PRN Hair loss 11/16/2023 Assessment & Plan (11/16/2023 10:07 AM EST): TSH levels ordered F/u with PCP Chest pain 11/02/2022 Overview (11/02/2022): - Presented to [facility] ED 07/25/22 with c/o chest tightness and left breast burning. Tachycardic on exam (HR 118) otherwise negative ACS evaluation. Suspected anxiety per ED note. - Similar sx prompted visit to walk in center 06/03/22 with normal EKG. Per visit note unclear if patient describing palpitations or muscle spasms. Healthcare maintenance 11/02/2022 Overview (12/22/2023): Mammo: 01/12/2022, bi-rads 1, followed by [facility]ER Pap: 01/2023 Neg HPV neg, followed by [facility] C-scope: 08/2015 neg; repeat 08/2025 BMD: Routine age 65 Immunizations: Up to date Assessment & Plan (12/22/2023 10:15 AM EDT): Updated mammogram ordered Patient will call to scheduled annual [facility] exam Assessment & Plan (04/25/2023 4:48 PM EDT): Multivitamin sent to the pharmacy Constipation 09/23/2017 Chloasma 06/10/2017 Vitamin D deficiency 08/17/2016 Bipolar I disorder ([facility]) 08/21/2015 Overview (02/22/2023): Followed by outside [...] Problem Noted Date Diagnosed Date Resolved Date Viral upper respiratory tract infection 09/10/2025 09/16/2025 Assessment & Plan (09/10/2025 10:18 AM EST): - Use saline nasal spray for nasal congestion. - Increase fluid intake. - Use Tylenol as needed for fever. - Nasacort nasal spray, dc flonase - Unclear if Allergic symptoms are possibly related to household cleaning sprays or environmental allergens. - Prescribed dramamine prn for dizziness, may help for itchiness. Vaginal discomfort 05/10/2023 Overview (05/10/2023): -Likely yeast infection. -Treat with clotrimazole. -BV swab sent. Assessment & Plan (05/10/2023 2:19 PM EDT): -Likely yeast infection. -Treat with clotrimazole. -BV swab sent. Class 1 obesity due to exces s calories with serious comorbidity and body mass index (BMI) of 33.0 to 33.9 in adult 11/02/2022 09/16/2025 Overview (12/22/2023): Pt taking Topiramate 100mg b.i.d for migraine prevention, reports this has not helped with weight loss Referred to [facility] weight mgnmt 08/2022, denied due to lack of comorbidity Metformin 500mg b.I.d-tolerating well Assessment & Plan (12/22/2023 10:15 AM EDT): Metformin has been effective adjunct for patient along with diet/exercise Continue 500mg b.I.d At follow up plan to check B12 Encounters Date Type Department Care Team Description 09/19/2025 Orders Only GENERIC EXTERNAL DATA DEPARTMENT Provider, Generic External Data 09/17/[address] [address] Charlotte Laureano FNP Results 09/14/2025 11:00 AM EST Office Visit [address] [address] Sophia Morse MD Rhonchi (Primary Dx); Non-recurrent acute suppurative otitis media of right ear without spontaneous rupture of tympanic membrane; Acute viral conjunctivitis of both eyes 09/14/2025 Travel 09/13/[address] [address] Charlotte Laureano FNP Nurse Triage 09/13/2025 Patient Outreach [address] [address] Charlotte Laureano FNP Care Management (C3CM- f/u call) 09/12/2025 Telephone [facility] [place] [address] Charlotte Laureano FNP Nurse Triage 09/12/2025 Refill [facility] [address] Charlotte Laureano FNP Constipation, unspecified constipation type 09/10/2025 9:40 AM EST Office Visit [facility] [address] Sarita Garcia MD Viral upper respiratory tract infection (Primary Dx); Body aches 09/10/2025 Travel 09/05/2025 Refill [facility] [place] [address] Charlotte Laureano FNP Class 1 obesity due to excess calories with serious comorbidity and body mass index (BMI) of 33.0 to 33.9 in adult 09/03/2025 Telephone [facility] [place] [address] Charlotte Laureano FNP 08/28/2025 Patient Outreach [address] [address] Charlotte Laureano FNP Care Management (C3CM- f/u call) 08/14/2025 Patient Outreach [address] [address] Charlotte Laureano FNP Care Management (C3CM- f/u call) 08/04/2025 Orders Only GENERIC EXTERNAL DATA DEPARTMENT Provider, Generic External Data 08/03/2025 Telephone [facility] [place] [address] Charlotte Laureano FNP Nurse Triage 08/01/2025 Patient Outreach [address] [address] Charlotte Laureano FNP 07/30/2025 Patient Outreach [address] [address] Charlotte Laureano FNP Care Coordination (SDOH) 07/30/2025 Patient Outreach [address] [address] Charlotte Laureano FNP Care Management (C3CM- f/u call) 07/26/2025 9:00 AM EDT Office Visit [facility] [address] [facility] [place] [address] Verna Mantilla CNM Mastodynia (Primary Dx) 07/26/2025 Travel 07/25/2025 Telephone [facility] [place] [address] Verna Mantilla CNM chart prep 07/25/2025 Refill [facility] [place] [address] Zachary Simon MD 07/24/2025 9:30 AM EDT Office Visit [facility] [place] [address] Teresa Storm FNP Mastodynia (Primary Dx) 07/24/2025 Telephone [facility] [address] [place], [place] [address] [address] Charlotte Laureano FNP Med Refill 07/24/2025 Travel 07/16/2025 Patient Outreach [address] [place] [address] Charlotte Laureano FNP Care Coordination (SDOH f/u) 07/16/2025 Patient Outreach [facility] [place] [address] Charlotte Laureano FNP Care Management (C3- f/u call) 07/10/2025 Refill [facility] [place] [address] Charlotte Laureano FNP Bacterial vaginosis; Yeast infection 07/09/2025 9:00 AM EDT Office Visit [facility] [place] [address] Charlotte Laureano FNP Tachycardia (Primary Dx); Constipation, unspecified constipation type; Dysuria; Mixed hyperlipidemia; Paranoid schizophrenia ([facility]) 07/09/2025 Orders Only [facility] [place] [address] Charlotte Laureano FNP 07/09/2025 Travel 07/06/[address] [address] Charlotte Laureano FNP Chart Prep 07/02/2025 Patient Outreach [address] [address] Charlotte Laureano FNP Pre-visit Planning ([facility] screening completed on 06/28/2025) 06/28/2025 Plan of Care Documentation [address] [address] 06/28/2025 Patient Outreach [address] [address] Charlotte Laureano FNP Care Coordination 06/28/2025 Patient Outreach [address] [address] Charlotte Laureano FNP 06/22/[address] [place] [address] Charlotte Laureano QUALITY ASSURANCE ADVISOR CT order 06/22/2025 Patient Outreach [address] [address] Charlotte Laureano FNP Care Coordination (CM/CHW outreach) 06/22/2025 Patient Outreach [address] [address] Charlotte Laureano FNP Care Management (C3CM- chart review) 06/22/2025 Patient Outreach [address] [place] [address] Charlotte Laureano FNP 06/21/2025 Orders Only GENERIC EXTERNAL DATA DEPARTMENT Provider, Generic External Data from Last 3 Months Immunizations Immunization Administration Dates Next Due Hep A, Adult 04/02/2016,05/15/2015 Hep B, adult 05/31/2017,04/02/2016,05/15/2015 Influenza Injectable Quadriv alant Preservative Free IIV4 MDCK 08/13/2021 Influenza injectable quadriv alent IIV4 with preservative 08/24/2017,08/17/2016,08/21/2015 Influenza injectable quadriv alent preservative free 06/29/2023,07/27/2022,10/21/2020,2019,08/08/2019,09/09/2018 Influenza, IIV3, injectable 07/25/2014, 9 Influenza, Recombinant, inje ctable, preservative free 07/05/2025 Influenza, Split (incl. hattie fied surface antigen) [...] Sign Reading Time Taken Comments Blood Pressure 98/70 09/14/2025 10:45 AM EST Pulse 121 09/14/2025 10:45 AM EST Temperature 35.5 C (95.9 F) 09/14/2025 10:45 AM EST Respiratory Rate 19 09/14/2025 10:45 AM EST Oxygen Saturation 97% 09/14/2025 10:45 AM EST Inhaled Oxygen Concentration - - Weight 68.2 kg (150 lb 4.8 oz) 09/14/2025 10:45 AM EST Height 160 cm (5' 3 ) 09/14/2025 10:45 AM EST Body Mass Index 26.62 09/14/2025 10:45 AM EST Plan of Treatment Health Maintenance Due Date Last Done Comments CT Colonography 1965 Dental Prophylaxis 1965 Dental X-Ray: Bitewings 1965 Dental X-Ray: Full Mouth 1965 FIT DNA/Cologuard 1965 FIT 1965 FOBT 1965 Disability Screening 1965 Dental Oral Exam 06/28/2025 12/25/2024, 12/21/2022 Colonoscopy 07/24/2025 07/24/2015 SDOH Screening 06/28/2026 06/28/2025 Alcohol/Substance Use Screening 07/09/2026 07/09/2025 Depression Screening 07/09/2026 07/09/2025, 07/09/20 25 Mammogram 08/29/2026 08/29/2025, 01/09, 01/21/2024, Additional history exists Tobacco Screening 09/14/2026 09/14/2025 Cervical Cancer Screening 02/02/2028 HPV/Cotest 02/02/2028 Pap [...] Completed 07/05/2025, , 06/29/2023, Additional history exists COVID-19 Vaccine Completed 08/04/2025, , 10/13/2023, Additional history exists HIB Vaccines Aged Out [...] TO CULTURE Routine 09/19/2025 8:38 PM EST XR CHEST 2 VIEWS Routine 09/14/2025 11:4 0 AM EST Rhonchi POCT INFLUENZA B (ID NOW RAPID MOLECULAR) Routine 09/10/2025 10:06 AM EST Body aches POCT INFLUENZA A (ID NOW RAPID MOLECULAR) Routine 09/10/2025 10:05 AM EST Body aches POCT COVID-19 AG SANTANA ID NOW Routine 09/10/2025 10:05 AM EST Body aches BI MAMMOGRAM DIAGNOSTIC TOMOSYNTHESIS BILATERAL Routine 08/29/2025 [...] ESTABLISHED PATIENT Routine 12/25/2024 9:30 AM EDT HM PAP/HPV Routine 02/01/2023 HM COLONOSCOPY Routine 07/24/2015 8:38 AM EDT from Last 3 Months or Most Recently Relevant to Health Maintenance Results * (ABNORMAL) Urinalysis, Complete, with Reflex to Culture (09/19/2025 8:38 PM EST) Only the most recent of2 resultswithin the time period is included. Color Urine Yellow [facility] Appearance Urine Clear [facility] PH 7.0 5.0 - 9.0 [facility] Glucose Urine UA Negative Negative mg/dL [facility] Urine Blood Negative Negative [facility] Specific Tell - Urine 1.015 1.005 - 1.025 [facility] Urine Protein Negative Neg-Trace mg/dL [facility] Urine Ketones Negative Negative mg/dL [facility] Nitrite Urine Negative Negative [facility] Leukocyte Esterase Urine Moderate (2+)(A) Negative [facility] RBC Urine 0-2 0 - 2 /HPF [facility] Urine WBC 11-20(A) 0 - 5 /HPF [facility] Urine Squamous Epithelial Cell 6-10 0 - 2 /HPF [facility] TRANSITIONAL (EPITHELIAL) CELLS (#/HPF) IN URINE Present [facility] Urine Bacteria Trace None Seen [facility] Hyaline Casts, Urine 0-2 0 - 2 /LPF [facility] Urine Yeast Present [facility] 09/19/2025 8:38 PM EST 09/19/2025 8:42 PM EST Narrative [facility] - 09/19/2025 9:06 PM EST Urine, Clean Catch us Generic External Data Provider LAB URINE ORDERAB LES Final Result [facility] [address] [place] [address] [phone] * XR Chest 2 Views (09/14/2025 11:40 AM EST) Only the most recent of2 resultswithin the time period is included. Anatomical Region Laterality Modality Chest Radiographic Grace ging 09/14/2025 11:4 0 AM EST Narrative 09/14/2025 11:51 AM EST [facility] [address] [place] [address] XRay Report Signed Patient: Itzel Duncan MR#: [id number] 3 : 1965 Acct:[id number] Age/Sex: 60 / F ADM Date: 09/14/25 Loc: [facility] Attending Dr: Sophia Morse MD Ordering Physician: Sophia Morse Date of Service: 09/14/25 Procedure(s): XR chest 2V Accession Number(s): [id number] cc: Sophia Morse Reason for Exam: RUL ronchi, fever, chills, tachycardic EXAMINATION: XR CHEST 2 VIEWS HISTORY: RUL rhonchi, fever, chills, tachycardic COMPARISON: Comparison is made with the prior examination dated 08/04/2025. FINDINGS: PA and lateral views of the chest are submitted. The lungs are expanded and clear. There is no pleural effusion, pneumothorax, or pulmonary vascular congestion. The heart is normal in size. The bones are intact. XR/XR chest 2V IMPRESSION: No acute cardiopulmonary abnormality. Electronically signed by: Pool Don MD 09/14/2025 11:48 AM EST Dictated By: Pool Don MD Signed By: <Electronically signed by Pool Don MD in OV> 09/14/25 1148 DD/ 1140 TD/TT: 09/14/25 1144 Manager Ethics: Procedure Note Donotuseinterpreter, Image - 09/14/[address] [address] XRay Report Signed Patient: Itzel Duncan EMR#: [id number] 3 : 1965Acct:[id number] Age/Sex: 60 / FADM Date: 09/14/25 Loc: [facility] Attending Dr: Sophia Morse MD Ordering Physician: Sophia Morse Date of Service: 09/14/25 Procedure(s): XR chest 2V Accession Number(s): [id number] cc: Sophia Morse Reason for Exam: RUL ronchi, fever, chills, tachycardic EXAMINATION: XR CHEST 2 VIEWS HISTORY: RUL rhonchi, fever, chills, tachycardic COMPARISON: Comparison is made with the prior examination dated 08/04/2025. FINDINGS: PA and lateral views of the chest are submitted. The lungs are expanded and clear. There is no pleural effusion, pneumothorax, or pulmonary vascular congestion. The heart is normal in size. The bones are intact. XR/XR chest 2V IMPRESSION: No acute cardiopulmonary abnormality. Electronically signed by: Pool Don MD 09/14/2025 11:48 AM EST RP Dictated By: Pool Don MD Signed By: <Electronically signed by Pool Don MD in OV> 09/14/25 1148 DD/ 1140 TD/TT: 09/14/25 1144 Manager Ethics: Sophia Morse MD IMG XR PROCEDURES Final Result * POCT Rapid Influenza B SANTANA ID NOW (09/10/2025 10:06 AM EST) Influenza B Negative Negative, Indeterminate [facility] QC Media Lot # [id number] [facility] Lot# Expiration Date [facility] Swab 09/10/2025 10:0 6 AM EST Sartia Garcia MD POINT OF CARE TEST ENTER /EDIT ORDERABLES Final Result [facility] [address] [place] [phone] * POCT Rapid Influenza A SANTANA ID NOW (09/10/2025 10:05 AM EST) Influenza A Negative Negative, Indeterminate [facility] QC Media Lot # [id number] [facility] Lot# Expiration Date [facility] Swab 09/10/2025 10:0 5 AM EST Sarita Garcia MD POINT OF CARE TEST ENTER /EDIT ORDERABLES Final Result [facility] [address] [place] [address] [phone] * POCT Rapid Covid-19 SANTANA ID NOW (09/10/2025 10:05 AM EST) Coronavirus Antigen PCR Negative Negative, Indeterminate, None Detected, Trace, 3+, Specimen unsatisfactory for evaluation, Weakly Positive, 1+, 2+ QC Media Lot # [id number] Lot# Expiration Date [id number] Swab 09/10/2025 10:0 5 AM EST Sarita Garcia MD POINT OF CARE TEST ENTER /EDIT ORDERABLES Final Result * BI Mammogram Diagnostic Tomosynthesis Bilateral (08/29/2025 1:10 PM EST) Anatomical Region Laterality Modality Breast Bilateral Mammography 08/29/2025 1:10 PM EST Narrative 08/29/2025 2:14 PM EST [address] [place] [address] Mammography Report Signed Patient: Itzel Duncan MR#: [id number] 3 : 1965 Acct:[id number] Age/Sex: 60 / F ADM Date: 08/29/25 Loc: [facility] Attending Dr: Teresa Storm QUALITY ASSURANCE ADVISOR Ordering Physician: Teresa Storm Results: 2Benig n Date of Service: 08/29/25 Follow Up: 1 Year From Orig ina Mammogram Procedure(s): MM tomosynthesis diagnostic BI Accession Number(s): [id number] cc: Teresa StormP; GeorgiCharlotte QUALITY ASSURANCE ADVISOR Reason For Exam: MASTODYNIA EXAMINATION: MM DIAGNOSTIC [...] by: Val Baker DO 08/29/2025 02:11 PM [facility] Dictated By: Val Baker DO Signed By: <Electronically signed by Val Baker DO in OV> 08/29/25 1411 DD/ 1310 TD/TT: 08/29/25 1330 Manager Ethics: Procedure Note Donotuseinterpreter, Image - 08/29/2025 [facility] [address] [place], [place] [address] Mammography Report Signed Patient: Itzel Duncan EMR#: [id number] 3 : 1965Acct:[id number] Age/Sex: 60 / FADM Date: 08/29/25 Loc: [facility] Attending Dr: Teresa DC Ordering Physician: Teresa Storm FNPResults: 2Benig n Date of Service: 08/29/25Follow Up: 1 Year From Orig inal Mammogram Procedure(s): MM tomosynthesis diagnostic BI Accession Number(s): [id number] cc: Teresa Storm QUALITY ASSURANCE ADVISOR; [facility] QUALITY ASSURANCE ADVISOR Reason For Exam: MASTODYNIA EXAMINATION: MM DIAGNOSTIC [...] 08/29/25 1411 DD/ 1310 TD/TT: 08/29/25 1330 Manager Ethics: Teresa Storm QUALITY ASSURANCE ADVISOR IMG BI PROCEDURES Final Result * ECG 12 lead (08/27/2025 4:15 PM EST) Marilu SenecaCharlotte FNP - 08/27/2025 4:15 PM EST Sinus tachycardia. See scanned report [facility] ECG ORDERABLES Final Result * Influenza A B2 ID NOW (Santana) (08/04/2025 9:41 AM EDT) IDNOW SERIAL# [id number] [facility] Influenza A Negative Negative [facility] Influenza B2 Negative Negative [facility] Influenza A B2 Note See Note [facility] Comment:The Santana ID NOW In fluenza [...] GENERAL ORDERABLES Final Result Performing Organization Address [facility] de Phone Number [facility] [address] [place] [phone] * Strep A Nucleic Acid (08/04/2025 9:41 AM EDT) IDNOW SERIAL# [id number] [facility] Strep A Nucleic Acid Negative Negative [facility] Comment:All test results mus t be [...] GENERAL ORDERABLES Final Result Performing Organization Address [facility] Co de Phone Number [facility] [address] [place] [address] [phone] * COVID-19 ID NOW (SANTANA) (08/04/2025 9:41 AM EDT) IDNOW SERIAL# [id number] [facility] [facility] COVID-[facility] TEST Negative Negative [facility] COVID-19 NOTE See Note [facility] Comment: Results are for the identification of SARS-CoV2 RNA. TheSARS-CoV2 RNA is generally detectable in respiratory samplesduring the acute phase of infection. Positive results areindicative of the presence of SARS-CoV-2 RNA; clinicalcorrelation with patient history and other diagnosticinformation is necessary to determine patient infectionstatus. Positive results do not rule out bacterial infectionor co- infection with other viruses.Testing facilities within the [facility] and [facility] are required to report all positive [...] use by authorized laboratories.Testing performed on the [employer] ID NOW utilizing NAAT. 08/04/2025 9:41 AM EDT 08/04/2025 9:46 AM EDT us [employer] External Data Provider LAB MOLECULAR RADHA GNOSTICS ORDERABLES Final Result [facility] [address] [place] [phone] * High Sensitivity Troponin I (08/04/2025 9:41 AM EDT) Only the most recent of2 resultswithin the time period is included. TROPONIN I HIGH SENSITIVITY <2.7 <3.5 - 17.0 ng/L [facility] Comment:The Santana high sens itivity Troponin-I results should beused in conjunction with other diagnostic information suchas ECG, clinical observations and information, and patientsymptoms to aid in the diagnosis of [place]. 08/04/2025 9:41 AM EDT 08/04/2025 9:46 AM EDT us Generic External Data Provider LAB BLOOD ORDERAB LES Final Result [facility] [address] [place] [address] [phone] * CBC auto differential (08/04/2025 9:41 AM EDT) Only the most recent of3 resultswithin the time period is included. White Blood Count 8.6 4.8 - 10.8 X10*3/uL [facility] Red Blood Count 5.27 4.20 - 5.50 X10*6/uL [facility] Hemoglobin 15.2 12.0 - 16.0 g/dl [facility] Hematocrit 45.1 37.0 - 47.0 % [facility] Mean Corpuscular Volume 85.6 80.0 - 98.0 fL [facility] Mean Corpuscular Hemoglobin 28.8 27.0 - 33.0 pg [facility] Mean Corpuscular HGB Conc 33.7 31.0 - 35.0 g/dl [facility] Red Cell Distribution Width 12.6 11.0 - 16.0 % [facility] Platelet Count 276 160 - 400 X10*3/uL [facility] Mean Platelet Volume 9.8 9.4 - 12.3 fL [facility] Neutrophils Percent Auto 65.1 45 - 73 % [facility] Imm Gran Pct Auto 0.2 0.0 - 0.4 % [facility] Lymphocytes Percent Auto 24.5 20 - 40 % [facility] Monocytes Percent Auto 8.3 2 - 11 % [facility] Eosinophils Percent Auto 1.4 0 - 4 % [facility] Basophils Percent Auto 0.5 0 - 2 % [facility] NRBC Pct Auto 0.0 0.0 - 0.2 /100WBC [facility] Neutrophils Absolute Auto 5.6 2.0 - 8.3 x10*3/uL [facility] Imm Gran Abs Auto 0.02 0.00 - 0.03 X10*3/uL [facility] Lymphocytes Absolute Auto 2.1 1.2 - 4.9 X10*3/uL [facility] Monocytes Absolute Auto 0.7 0.1 - 1.2 X10*3/uL [facility] Eosinophils Absolute Auto 0.1 0.0 - 0.4 X10*3/uL [facility] Basophils Absolute Auto 0.0 0.0 - 0.2 X10*3/uL [facility] NRBC Abs Auto 0.000 0.0 - 0.012 X10*3/uL [facility] 08/04/2025 9:41 AM EDT 08/04/2025 9:46 AM EDT us Generic External Data Provider LAB BLOOD ORDERAB LES Final Result [facility] [address] [place] [phone] * (ABNORMAL) Comprehensive Metabolic Panel (08/04/2025 9:41 AM EDT) Only the most recent of2 resultswithin the time period is included. Sodium 142 135 - 145 mmol/L [facility] Potassium 4.1 3.3 - 5.1 mmol/L [facility] Chloride 104 96 - 108 mmol/L [facility] Carbon Dioxide 26 22 - 29 mmol/L [facility] Anion Gap 16 12 - 20 [facility] Urea Nitrogen (BUN) 5(L) 9 - 16 mg/dL [facility] Creatinine, Serum 0.65 0.5 - 1.4 mg/dL [facility] Creatinine Clr Calc Pharmacy 85.2 [facility] Comment:Provided height and weight: 160.02 cm,68.039 kg.eGFR (calculated from the MDRD study equation) and eCrCl(calculated from the Cockcroft-Gault equation) are based ondifferent parameters and may not yield comparable results.If eCrCl result is absurd, please check patient'sheight/weight. Estimated Glomerular Filt Rate >60 [facility] Comment:Chronic Kidney Disea se: Estimated GFR < 60 mL/min/1.51i7Eyelji Kidney Disease: Estimated GFR < 15 mL/min/1.73m2 Glucose 111 60 - 115 mg/dL [facility] Calcium 10.0 8.4 - 10.2 mg/dL [facility] Bilirubin, Total 0.5 0.0 - 1.0 mg/dL [facility] Aspartate Amino Transferase 35(H) 5 - 31 U/L [facility] Alanine Aminotransferase 24 0 - 31 U/L [facility] Total Protein 7.6 6.5 - 8.0 g/dL [facility] Albumin Level 5.0 3.5 - 5.0 g/dL [facility] Alkaline Phosphatase 100 39 - 117 U/L [facility] 08/04/2025 9:41 AM EDT 08/04/2025 9:46 AM EDT us Generic External Data Provider LAB BLOOD ORDERAB LES Final Result Performing Organization Address City/State/[facility] Co de Phone Number [facility] [address] [place] [phone] * US Renal Complete (08/03/2025 10:27 AM EDT) Anatomical Region Laterality Modality Kidney Ultrasound 08/03/2025 10:2 7 AM EDT Narrative 08/03/2025 11:24 AM EDT [address] [address] Ultrasound Report Signed Patient: Itzel Duncan MR#: [id number] 3 : 1965 Acct:[id number] Age/Sex: 60 / F ADM Date: 08/03/25 Loc: HO. Attending Dr: Taylor BRISENO Ordering Physician: Taylor Comer Date of Service: 08/03/25 Procedure(s): US renal BI Accession Number(s): [id number] cc: Taylor Comer; [facility] Reason for Exam: N20.0 - Calculus of [...] 08/03/25 1121 DD/ 1027 TD/TT: 08/03/25 1051 Manager Ethics: Procedure Note Donotuseinterpreter, Image - 08/03/2025 [place] [address] Ultrasound Report Signed Patient: Itzel Duncan EMR#: [id number] 3 : 1965Acct:[id number] Age/Sex: 60 / FADM Date: 08/03/25 Loc: HO.US Attending Dr: Taylor BRISENO Ordering Physician: Taylor Comer Date of Service: 08/03/25 Procedure(s): US renal BI Accession Number(s): [id number] cc: Taylor Comer; [facility] Reason for Exam: N20.0 - Calculus of [...] 08/03/25 1121 DD/ 1027 TD/TT: 08/03/25 1051 Manager Ethics: us [facility] External Provider IMG US PROCEDURES Final Result * Vitamin B12/Folate, Serum Panel (07/09/2025 10:20 AM EDT) Vitamin B12 570 200 - 900 pg/mL [facility] Comment:NORMAL 200-900 PG/ML INDETERMINATE 160-199 PG/ML DEFICIENT < 160 PG/ML Folate 5.7 > or = 4.0 ng/mL [facility] Comment:Reference Values:> o r = 4.0 ng/mL< 4.0 ng/mL suggests folate deficiency Methotrexate, aminopterin and folinic acid(leucovorin) are chemotherapeutic agents whose molecularstructures are similar to folate; therefore, the Architectfolate assay cannot be used for patients using these drugs. Blood Venous blood specimen / Unknown 07/09/2025 10:20 AM EDT 07/09/2025 11:13 AM EDT [facility] QUALITY ASSURANCE ADVISOR LAB BLOOD ORDERABLES Final Re sult Performing Organization Address City/[facility]/ZIP Co de Phone Number [facility] [address] [place] [address] [phone] * TSH W/Reflex to FT4 (07/09/2025 10:20 AM EDT) TSH reflex Free T4 1.19 0.32 - 4.0 uIU/mL [facility] Blood Venous blood specimen / Unknown 07/09/2025 10:20 AM EDT 07/09/2025 11:13 AM EDT [facility] LAB BLOOD ORDERABLES Final Re sult Performing Organization Address [facility] Co de Phone Number [facility] [address] [place] [phone] * Lipid Panel, Standard (07/09/2025 10:20 AM EDT) Triglycerides 112 <150 mg/dL [facility] Comment:Desirable Triglyceri de: less than 150 mg/dLBorderline High Triglyceride 150-199 mg/dLHigh Triglyceride: 200-499 mg/dLVery High Triglyceride: greater than or equal to 5OO mg/dL Cholesterol 153 <200 mg/dL [facility] Comment:Desirable Cholestero l: less than 200 mg/dLBorderline High Cholesterol: 200-239 mg/dLHigh Cholesterol: greater than 239 mg/dL LDL Cholesterol Calculated 71 <100 mg/dL [facility] Comment:Desirable LDL: less than 100 mg/dLNear Optimal/Above Optimal LDL: 110- 129 mg/dLBorderline High LDL: 130-159 mg/dLHigh LDL: 160-189 mg/dLVery High LDL: greater than or equal to 190 mg/dL HDL Cholesterol 60 >40 mg/dL [facility] Comment:Desirable HDL: great er than 40 mg/dL Note: This HDL assay may give artificially low results in patients with liver disease. Blood Venous blood specimen / Unknown 07/09/2025 10:20 AM EDT 07/09/2025 11:13 AM EDT [facility] LAB BLOOD ORDERABLES Final Re sult Performing Organization Address [facility] Co de Phone Number [facility] [address] [place] [address] [phone] * (ABNORMAL) Bacterial Vaginosis Panel (07/09/2025 9:51 AM EDT) TRICHOMONAS VAGINALIS DETECTION BY PCR NOT DETECTED Not Detect [facility] BACTERIAL VAGINOSIS DETECTION BY PCR POSITIVE(A) Negative [facility] Comment:The BV organism targ ets of [...] GROUP DETECTION BY PCR DETECTED(A) Not Detect [facility] Elisabeth glab krusei PCR NOT DETECTED Not Detect [facility] Swab Vaginal structure / Unknown 07/09/2025 9:51 AM EDT 07/09/2025 6:10 PM EDT [facility] MICROBIOLOGY - GENERAL OR DERABLES Final Result Performing Organization Address [facility]/ZIP Co de Phone Number [facility] [address] [place] [phone] * Chlamydia/N. Gonorrhoeae RNA, TMA, Vaginal (07/09/2025 9:51 AM EDT) CT PCR NOT DETECTED Not Detect. [facility] Comment:A not detected test result does [...] psychologicalconsequences. NG PCR NOT DETECTED Not Detect. [facility] Comment:A not detected test result does [...] 9:51 AM EDT 07/09/2025 6:10 PM EDT [facility] MICROBIOLOGY - GENERAL OR DERABLES Final Result [facility] [address] [place] [phone] * Culture, Urine, Routine (07/09/2025 12:00 AM EDT) Urine Urine specimen obtained by clean catch procedure / Unknown 07/09/2025 07/09/2025 Comment:UACC Narrative [facility] - 07/10/2025 7:57 AM EDT Urine Culture No growth. Specimen Source: Urine clean catch [facility] QUALITY ASSURANCE ADVISOR LAB MICROBIOLOGY - GENERAL OR DERABLES Final Result Performing Organization Address [facility] Co de Phone Number [facility] [address] [place] [phone] * Magnesium (06/21/2025 12:01 PM EDT) Magnesium 2.1 1.6 - 2.6 mg/dL [facility] 06/21/2025 12:0 1 PM EDT 06/21/2025 12:04 PM EDT Generic External Data Provider LAB BLOOD ORDERAB LES Final Result Performing Organization Address [facility] Co de Phone Number [facility] [address] [place] [phone] * Lipase (06/21/2025 12:01 PM EDT) Lipase 32 8 - 78 U/L [facility] 06/21/2025 12:0 1 PM EDT 06/21/2025 12:04 PM EDT Generic External Data Provider LAB BLOOD ORDERAB LES Final Result Performing Organization Address [facility] Co de Phone Number [facility] [address] [place] [phone] * Hepatitis C Antibody (MARLENI CAMARGO) (04/20/2025) Hepatitis C Ab Nonreactive Blood 04/20/2025 Historical Provider LAB BLOOD ORDERABLES Marion l Result * HIV Ab/Ag (MARLENI CAMARGO) (04/20/2025) HIV Ag/Ab Nonreactive Blood 04/20/2025 Historical Provider LAB BLOOD ORDERABLES Marion l Result * Pap Smear (02/01/2023) Pap smear PERFORMED Comment:HPV MRNA NOT DETECTE D Historical Provider HEALTH MAINTENANCE Final Result * Colonoscopy (07/24/2015 8:38 AM EDT) [facility] Provider HEALTH MAINTENANCE Final Result from Last 3 Months or Most Recently Relevant to Health Maintenance [place] [address] [place] [address] C3 [facility] [employer]ICA[employer] STAND ADULT Care Teams Can Tender Relationship Specialty Start Date End Date Charlotte Laureano FNP [address] [place] [phone] PCP - General Family Medicine 06/09/22 Pete Shultz RN [address] [place] [phone] Registered Nurse Family Medicine 06/22/25
--- OUTSIDE RECORDS SUMMARY | 2025-09-20 01:03 | XMS_ITS | Encounter Summary ---
Author Organization [employer] Address [address] [facility] 7t [place] [address] Care Team Providers Care Machine Tracer Name Role Phone [facility] Primary Care Provider [phone] Pete Shultz RN Unavailable [phone] Jacinta Bajwa Unavailable Reason for Visit * Reason Onset Date Comments Med Refill 03/20/2024 Encounter Details Date Type Department Care Team ([facility] st Contact Info) Description 03/20/2024 Telephone [facility] [address] [place], [place] [phone] [facility] [address] [place] [address] Med Refill Social History Tobacco Use Types [...] 9:31 AM EDT Medication was sent to [facility] on 02/07/24 #180 with 2 refills. * Telephone Encounter - Stefania Cardenas - 03/20/2024 9:23 AM EDT TC from pt requesting medication refill. Medications needing refill : metFORMIN XR (Glucophage-XR) 500 MG 24 hr tablet To be sent to: [facility] - [place], [place] - [address] [place] [address] documented in this encounter Plan of Treatment Not on file documented as of this encounter Visit Diagnoses Not on filedocumented in this encounter Additional Health Concerns Assessment Noted Time PHQ-9 Depression Total Score: 0 12/22/19 24 9:02 AM EDT documented as of this encounter Care Teams Machine Tracer Relationship Specialty Start Date End Date Charlotte Laureano FNP [address] [facility] [place] [address] PCP - General Family Medicine 06/09/22 Pete Shultz RN [address] [place] [address] [place] [address] Registered Nurse Family Medicine 06/22/25 Jacinta Bajwa 06/22/25 07/30/25 documented as of this encounter
--- OUTSIDE RECORDS SUMMARY | 2025-09-20 01:03 | XMS_ITS | Encounter Summary ---
Author Organization [employer] Address [address] [facility] 7t [place] [address] Care Team Providers Care Aquaculture Director Name Role Phone Georgi Charlotte [facility] MANA[facility] Primary Care Provider [phone] Pete Shultz RN Unavailable [phone] Jacinta Bajwa Unavailable Encounter Details Date Type Department Care Team (Late st Contact Info) Description 05/25/[address] [facility] [address] [place], [place] [phone] Noreen Krishnamurthy RN Social History Tobacco Use [...] documented as of this encounter Care Teams Aquaculture Director Relationship Specialty Start Date End Date Charlotte Laureano FNP [address] [place] [phone] PCP - General Family Medicine 06/09/22 Pete Shultz RN [address] [place] [phone] Registered Nurse Family Medicine 06/22/25 Jacinta Bajwa 06/22/25 07/30/25 documented as of this encounter
--- OUTSIDE RECORDS SUMMARY | 2025-09-20 01:03 | XMS_ITS | Encounter Summary ---
Author Organization [employer] Address [address] [facility] 7t [place] [address] Care Team Providers Care Manager Cardiovascular Name Role Phone [facility] Primary Care Provider [phone] Pete Shultz RN Unavailable [phone] Jacinta Bajwa Unavailable Reason for Visit * Reason Onset Date Comments Results 11/17/2023 Encounter Details Date Type Department Care Team ([facility] st Contact Info) Description 11/17/2023 Telephone [facility] [address] [place], [place] [phone] [facility] [address] [place] [address] Results Social History Tobacco Use Types Packs/Day [...] a PAP smear. Please contact pt at [phone] * Telephone Encounter - oDny Hanson - 11/19/2023 9:11 AM EST Tc [...] as of this encounter Care Teams Manager Cardiovascular Relationship Specialty Start Date End Date Charlotte Laureano FNP [address] [place] [address] PCP - General Family Medicine 06/09/22 Pete Shultz RN [address] [place] [address] Registered Nurse Family Medicine 06/22/25 Jacinta Bajwa 06/22/25 07/30/25 documented as of this encounter
--- OUTSIDE RECORDS SUMMARY | 2025-09-20 01:03 | XMS_ITS | Encounter Summary ---
Author Organization [employer] Address [address] [facility] 7t [place] [address] Care Team Providers Care Multi Operation Machine Operator Name Role Phone [facility] Primary Care Provider [phone] Pete Shultz RN Unavailable [phone] Jacinta Bajwa Unavailable Reason for Visit * Reason Onset Date Comments Med Refill 03/31/2024 Encounter Details Date Type Department Care Team ([facility] st Contact Info) Description 03/31/2024 Telephone [facility] [address] [place], [place] [phone] [facility] [address] [place] [address] Med Refill Social History Tobacco Use Types [...] 9:40 AM EDT Script was sent to [facility] on 02/07/24 90 day supply with 2 refills. * Telephone Encounter - Stefania Cardenas - 03/31/2024 9:25 AM EDT TC from pt requesting medication refill. Medications needing refill : metFORMIN XR (Glucophage-XR) 500 MG 24 hr tablet To be sent to: [facility] - [place], [place] - [address] [place] [address] documented in this encounter Plan of Treatment Not on file documented as of this encounter Visit Diagnoses Not on filedocumented in this encounter Additional Health Concerns Assessment Noted Time PHQ-9 Depression Total Score: 0 12/22/19 9:02 AM EDT documented as of this encounter Care Teams Multi Operation Machine Operator Relationship Specialty Start Date End Date Charlotte Laureano FNP [address] [facility] [place] [address] PCP - General Family Medicine 06/09/22 Pete Shultz RN [address] [place] [phone] Registered Nurse Family Medicine 06/22/25 Jacinta Bajwa 06/22/25 07/30/25 documented as of this encounter
== END 2025-09-19 23:09 | disposition home or self-care (01) ==
PROVIDERS: Physician Assistant Medical; Emergency Provider Emergency Medicine
DX: J06.9 Acute upper respiratory infection, unspecified (principal); R51.9 Headache, unspecified; H92.03 Otalgia, bilateral; R00.0 Tachycardia, unspecified; Z03.818 Encounter for observation for suspected exposure to other biological agents ruled out
CPT/HCPCS: 80048; 80076; 81001; 83735; 84484; 85025; 87086; 87637; 93005; 96361; 96374; 96375; 99284; J1100; J1200; J1885; J2765

== ENCOUNTER → 2025-09-19 16:15 | Outpatient (BNV) | payer MEDICAID, SELFPAY | PROVIDERS: Emergency Provider Emergency Medicine; Visit Provider Internal Medicine Cardiovascular Disease | DX: R00.0 Tachycardia, unspecified (principal) | CPT/HCPCS: 93010 ==